=== PATIENT | male | born 1945 | race Caucasian/White ===

== ENCOUNTER → 2020-03-02 12:57 | Outpatient (REF) | payer MEDICARE, SELFPAY ==
--- NOTE | 2020-03-02 | US_ITS ---
EXAMINATION: US EXTRACRANIAL CAROTID DUPLEX, BILATERAL CLINICAL INFORMATION: History of TIA. COMPARISON: CT of the head without contrast on February 06, 2020 TECHNIQUE: Real-time ultrasound and Doppler techniques (integrating B-mode 2-D vascular images, Doppler spectral analysis and color-flow Doppler imaging) were utilized to interrogate the extracranial carotid arteries, the vertebral arteries and proximal subclavian arteries bilaterally. The degree of stenosis is determined by criteria similar to NASCET. FINDINGS: Right Side: 1. There is mild atherosclerotic plaque seen in the bifurcation/proximal ICA region. 2. The common carotid artery PSV proximally is 98.2 cm/s and distally 68.0 cm/s. 3. The proximal internal carotid artery velocities are 77.7 cm/s systolic and 19.3 cm/s diastolic. 4. The proximal external carotid artery PSV is 98.8 cm/s. 5. The vertebral artery shows antegrade flow. 6. The subclavian artery waveforms are normal. Left Side: 1. There is mild atherosclerotic plaque seen in the bifurcation/proximal ICA region. 2. The common carotid artery PSV proximally is 109 cm/s and distally 78.8 cm/s. 3. The proximal internal carotid artery velocities are 88 cm/s systolic and 27.5 cm/s diastolic. 4. The proximal external carotid artery PSV is 51.5 cm/s. 5. The vertebral artery shows antegrade flow. 6. The subclavian artery waveforms are normal. IMPRESSION: 1. RIGHT: Minimal, non-hemodynamically significant stenosis of the proximal right internal carotid artery corresponding to a 0-49% stenosis by velocity criteria. 2. LEFT: Minimal, non-hemodynamically significant stenosis of the proximal left internal carotid artery corresponding to a 0-49% stenosis by velocity criteria.
--- NOTE | 2020-03-02 13:05 | CA_ITS ---
Transthoracic Echocardiogram Patient (Last, First, Middle): Clifford Ashby A Gender: Male Date of : 1945 Age: 74 Procedure Date: 03/02/2020 Procedure Type: Transthoracic Echocardiogram Location: OP Height: 175.26 cm Weight: 78.47 kg BSA: 1.94 m2 Heart Rate: bpm BP: 122 / 68 mmHg Kitchen Designer: JORGE Referring MD: Thais Greenberg NP Symptoms: G45.9 TIA Study Quality: Fair ECG Rhythm: Undetermined Conclusions: - The left ventricular systolic function is normal. The visually estimated ejection fraction is between 55-60%. - No obvious valvular pathology seen on this study. - Cardiac rhythm during the study is not clear. P waves are intermittently seen. Consider holter for further evaluation. Findings Left Ventricle Normal left ventricular cavity size. There is normal left ventricular wall thickness. The left ventricular systolic function is normal. The visually estimated ejection fraction is between 55-60%. There is no evidence of regional wall motion abnormalities. Diastolic function is normal for age. Right Ventricle Normal right ventricular cavity size and systolic function. Atria Both atria are normal in size. Aortic Valve There is a normal trileaflet aortic valve. There is mild calcification of the aortic valve. There is no aortic valve stenosis. There is no aortic valve regurgitation. Mitral Valve The mitral valve appears normal. There is trace mitral valve regurgitation. There is no mitral valve stenosis. Pulmonic Valve The pulmonic valve was not well visualized. Tricuspid Valve Normal tricuspid valve structure. There is trace tricuspid valve regurgitation. The pulmonary artery systolic pressure is normal. Great Vessels The aortic annulus, sinuses of valsalva, and asc aorta are normal in size. Venous The inferior vena cava is normal in size and collapses greater than 50% with inspiration. Pericardium/Pleural There is no evidence of pericardial effusion. Prior Study Comparison No prior study available for comparison. Recommendations, Care & Conclusions No obvious valvular pathology seen on this study. Measurements 2D Linear Measurements IVSd: 1.13 0.6-0.9/0.6-1.0 cm LVIDd: 4.30 3.9-5.3/4.2-5.9 cm LVIDd Index: 2.22 2.4-3.2/2.2-3.1 cm/m2 LVIDs: 2.89 2.0-3.6 cm LVPWd: 1.02 0.7-1.1 cm Ao Root: 3.30 2.1-3.5 cm LA Diam: 4.40 2.7-3.8/3.0-4.0 cm LAIDs Index: 2.27 1.5-2.3 cm/m2 LV Mass: 196.38 67-162/88-224 g LV Mass Index: 101.23 43-95/49-115 g/m2 LVOT Diam: 2.10 3.0+(-)1.3 cm 2D Systolic Function EF 4C: 61.00 >55% EF 2C: 59.70 >55% EF BiP: 60.00 >55% Mitral Valve MV Pk E: 1.02 MV Decel Time: 216.00 E'Lateral: 22.30 E'Medial: 13.80 E/E' Med: 7.40 E/E' Lat: 4.60 PHT: 63.00 MVA PHT: 3.49 Decel [place]: 4.71 Aortic Valve AoV Pk Nixon: 1.33 AoV Mn Nixon: 0.93 AoV VTI: 0.30 AoV Pk Grad: 7.00 Aov Mn Grad: 4.00 FE Cont.VTI: 1.72 LVOT LVOT Pk Nixon: 0.70 LVOT Mn Nixon: 0.48 LVOT VTI: 0.15 LVOT Pk Grad: 2.00 LVOT Mn Grad: 1.00 LVOT Diam: 2.10 LVOT Area: 3.46 Diastolic Function MV Pk E: 1.02 E'Medial: 13.80 E/E' Med: 7.40 E' Laterial: 22.30 E/E' Lat: 4.60 Tricuspid Valve TR Pk Nixon: 2.50 TR Pk Grad: 25.00 Great Vessels Aorta Ao Root-2D: 3.30 2.0-3.7 cm Pulmonary Valve PV Pk Nixon: 0.91 Peak PV Grad: 3.00 Updated in Other Vendor System with Status of Final Nnamdi Damon MD electronically signed on 03/05/2020 9:30:19 AM with status of Final
== END ==
LOC: HO.CARD 12:57
PROVIDERS: Visit Provider Nurse Practitioner
DX: G45.9 Transient cerebral ischemic attack, unspecified (principal)
CPT/HCPCS: 93306; 93880

== ENCOUNTER 2020-03-14 09:28 | Outpatient (REF) | payer MEDICARE, OTHER, SELFPAY ==
[2020-03-14 15:20] LABS: SARS COV2 PCR INHOUSE NEGATIVE (Negative)
== END 2020-03-14 09:29 | disposition home or self-care (01) ==
LOC: HO.HSH3W 09:28
PROVIDERS: Visit Provider Internal Medicine Critical Care Medicine
DX: Z20.828 Contact with and (suspected) exposure to other viral communicable diseases (principal)
CPT/HCPCS: 87635

== ENCOUNTER 2020-03-15 06:19 | Outpatient (REF) | payer MEDICARE, OTHER, SELFPAY ==
[2020-03-15 09:34] LABS: MANUAL DIFF FLAG NO
[2020-03-15 09:44] LABS: Basophils Percent Auto 0.6 % (0-2); Eosinophils Absolute Auto 0.1 X10*3/uL (0.0-0.4); Eosinophils Percent Auto 2.3 % (0-4); Hematocrit 36.4 % (42-52); Hemoglobin 12.1 g/dl (14.0-18.0); Imm Gran Abs Auto 0.02 X10*3/uL (0.00-0.03); Imm Gran Pct Auto 0.4 % (0.0-0.4); Lymphocytes Absolute Auto 1.4 X10*3/uL (1.2-4.9); Lymphocytes Percent Auto 27.1 % (20-40); Mean Corpuscular HGB Conc 33.2 g/dl (31.0-36.0); Mean Corpuscular Hemoglobin 28.9 pg (27.0-33.0); Mean Corpuscular Volume 87.1 fL (80-98); Mean Platelet Volume 10.3 fL (9.4-12.4); Monocytes Absolute Auto 0.6 X10*3/uL (0.1-1.2); Monocytes Percent Auto 10.9 % (2-11); Neutrophils Absolute Auto 3.1 X10*3/uL (2.0-8.3); Neutrophils Percent Auto 58.7 % (45-73); Platelet Count 147 X10*3/uL (160-400); Red Blood Count 4.18 X10*6/uL (4.60-5.80); Red Cell Distribution Width 13.1 % (11.0-16.0); White Blood Count 5.2 X10*3/uL (4.8-10.8)
[2020-03-15 10:10] LABS: Alanine Aminotransferase 11 U/L (0-40); Albumin Level 3.8 g/dL (3.5-5.0); Alkaline Phosphatase 92 U/L (39-117); Anion Gap 12 (12-20); Aspartate Amino Transferase 14 U/L (5-37); Bilirubin Total 0.5 mg/dL (0.0-1.0); Blood Urea Nitrogen 21 mg/dL (9-16); Calcium 8.3 mg/dL (8.4-10.2); Carbon Dioxide 25 mmol/L (22-29); Chloride 108 mmol/L (96-108); Cholesterol 154 mg/dL; Estimated Glomerular Filt Rate 30; Glucose Fasting 84 mg/dL (60-99); HDL Cholesterol 28 mg/dL; LDL Cholesterol Calculated 108 mg/dl; Potassium 4.5 mmol/l (3.3-5.1); Sodium 140 mmol/L (135-145); Total Protein 6.3 g/dL (6.5-8.0); Triglycerides 90 mg/dL
[2020-03-15 10:25] LABS: Vitamin D 25-OH Total 6.2 ng/mL (>30)
== END 2020-03-15 06:20 | disposition home or self-care (01) ==
LOC: HO.HSH3W 06:19
PROVIDERS: Visit Provider Nurse Practitioner
DX: F03.90 Unspecified dementia, unspecified severity, without behavioral disturbance, psychotic disturbance, mood disturbance, and anxiety (principal); I10 Essential (primary) hypertension
CPT/HCPCS: 36415; 80053; 80061; 82306; 85025

== ENCOUNTER 2020-03-16 17:15 | Outpatient (REF) | payer MEDICARE, OTHER, SELFPAY ==
[2020-03-16 17:56] LABS: Glucose Urine UA NEG (NEG); Leukocyte Esterase Urine NEG (NEG); Nitrite Urine NEG (NEG); Specific Gravity - Urine 1.025 (1.005-1.025); Urine Blood TRACE (NEG); Urine Ketones NEG (NEG); Urine Protein NEG (NEG-TRACE)
[2020-03-16 17:57] LABS: Appearance Urine CLEAR; Color Urine YELLOW
[2020-03-16 18:05] LABS: RBC Urine 0-2 /HPF (0); Squamous Epithelial Cell Urine TRACE /LPF; WBC Urine 0 /HPF (0-4)
== END 2020-03-16 17:16 | disposition home or self-care (01) ==
LOC: HO.HSH3W 17:15
PROVIDERS: Visit Provider Nurse Practitioner
DX: R32 Unspecified urinary incontinence (principal)
CPT/HCPCS: 81001

== ENCOUNTER 2020-06-15 08:03 | Outpatient (REF) | payer MEDICARE, OTHER, SELFPAY ==
[2020-06-15 10:23] LABS: Anion Gap 13 (12-20); Blood Urea Nitrogen 17 mg/dL (9-16); Calcium 8.8 mg/dL (8.4-10.2); Carbon Dioxide 24 mmol/L (22-29); Chloride 107 mmol/L (96-108); Estimated Glomerular Filt Rate 31; Glucose Random 91 mg/dL (60-115); Potassium 4.8 mmol/l (3.3-5.1); Sodium 139 mmol/L (135-145)
[2020-06-15 10:45] LABS: Vitamin D 25-OH Total 27.6 ng/mL (>30)
== END 2020-06-15 08:04 | disposition home or self-care (01) ==
LOC: HO.HSH3W 08:03
PROVIDERS: Visit Provider Nurse Practitioner
DX: N18.9 Chronic kidney disease, unspecified (principal); E55.9 Vitamin D deficiency, unspecified
CPT/HCPCS: 36415; 80048; 82306

== ENCOUNTER 2020-08-09 10:28 | Outpatient (REF) | payer MEDICARE, OTHER, SELFPAY ==
[2020-08-09 10:57] LABS: MANUAL DIFF FLAG NO
[2020-08-09 10:59] LABS: Basophils Percent Auto 0.4 % (0-2); Eosinophils Absolute Auto 0.1 X10*3/uL (0.0-0.4); Eosinophils Percent Auto 1.3 % (0-4); Hematocrit 40.2 % (42-52); Hemoglobin 13.5 g/dl (14.0-18.0); Imm Gran Abs Auto 0.03 X10*3/uL (0.00-0.03); Imm Gran Pct Auto 0.4 % (0.0-0.4); Lymphocytes Absolute Auto 1.2 X10*3/uL (1.2-4.9); Lymphocytes Percent Auto 16.3 % (20-40); Mean Corpuscular HGB Conc 33.6 g/dl (31.0-36.0); Mean Corpuscular Hemoglobin 28.9 pg (27.0-33.0); Mean Corpuscular Volume 86.1 fL (80-98); Mean Platelet Volume 9.8 fL (9.4-12.4); Monocytes Absolute Auto 0.6 X10*3/uL (0.1-1.2); Monocytes Percent Auto 8.6 % (2-11); Neutrophils Absolute Auto 5.4 X10*3/uL (2.0-8.3); Platelet Count 150 X10*3/uL (160-400); Red Blood Count 4.67 X10*6/uL (4.60-5.80); Red Cell Distribution Width 13.2 % (11.0-16.0); White Blood Count 7.4 X10*3/uL (4.8-10.8)
[2020-08-09 11:30] LABS: Alanine Aminotransferase 7 U/L (0-40); Alkaline Phosphatase 73 U/L (39-117); Amylase 46 U/L (28-100); Anion Gap 16 (12-20); Aspartate Amino Transferase 14 U/L (5-37); Bilirubin Total 0.8 mg/dL (0.0-1.0); Blood Urea Nitrogen 20 mg/dL (9-16); C Reactive Protein 2.06 mg/dL (< or = 0.50); Calcium 8.4 mg/dL (8.4-10.2); Carbon Dioxide 21 mmol/L (22-29); Chloride 106 mmol/L (96-108); Estimated Glomerular Filt Rate 26; Glucose Random 104 mg/dL (60-115); Lipase 19 U/L (8-78); Potassium 4.5 mmol/L (3.3-5.1); Sodium 138 mmol/L (135-145); Total Protein 6.6 g/dL (6.5-8.0)
== END 2020-08-09 10:29 | disposition home or self-care (01) ==
LOC: HO.HSH3W 10:28
PROVIDERS: Visit Provider Nurse Practitioner
DX: R10.9 Unspecified abdominal pain (principal); K74.60 Unspecified cirrhosis of liver
CPT/HCPCS: 36415; 80053; 82150; 83690; 85025; 86140

== ENCOUNTER 2020-08-09 12:19 | Emergency (ER) | payer OTHER, MEDICARE, SELFPAY ==
--- NOTE | ~2020-08-09 | CT_ITS ---
EXAMINATION: CT ABDOMEN AND PELVIS WITHOUT CONTRAST CLINICAL INFORMATION: Right-sided abdominal pain COMPARISON: None TECHNIQUE: Multidetector volumetric imaging was performed from the superior aspect of the liver through the pubic symphysis. Sagittal and coronal reformatted images were obtained on the technologist's workstation. This CT examination was performed using dose optimization techniques as appropriate, variously including the following: *Automated exposure control *Adjustment of mA and/or kV according to patient size (this includes techniques or standardized protocols for targeted exams where dose is matched to indication/reason for exam; i.e. extremities or head) *Use of iterative reconstruction technique DLP: 551 mGy-cm FINDINGS: LUNG BASES: The visualized lung bases are unremarkable. LIVER, GALLBLADDER, AND BILIARY TREE: The liver is normal in size, shape, and attenuation. No focal hepatic lesion or biliary ductal dilatation is present. The gallbladder is contracted. There are gallstones in the gallbladder. PANCREAS: Unremarkable. SPLEEN: The spleen is slightly enlarged measuring 14 cm in length. ADRENAL GLANDS: Unremarkable. KIDNEYS AND URETERS: Both kidneys are small measuring 8 and 8.5 cm in length.. No hydronephrosis, hydroureter, or calculi seen. No perinephric stranding. BLADDER: Not optimally distended but appears unremarkable. GASTROINTESTINAL TRACT: There are fluid-filled distended loops of small bowel. No transition zone is seen favoring ileus over partial small bowel obstruction. There is diverticulosis of the colon. There is no evidence of diverticulitis. The appendix is unremarkable. There is an esophageal hernia. ABDOMINAL WALL: No significant hernia is appreciated. LYMPH NODES: Normal. VASCULAR: Atherosclerotic disease. No aneurysm. PELVIC VISCERA: The prostate gland has been removed. OSSEOUS STRUCTURES: There are degenerative changes of the spine. There is spondylolysis spondylolisthesis and degenerative disc disease at L5-S1. No focal bone lesion is seen. CT/CT abdomen pelvis wo con IMPRESSION: Distended fluid-filled loops of small bowel. No transition zone is seen and small bowel ileus is favored over partial small bowel obstruction. Diverticulosis of the colon. No evidence of diverticulitis. Normal-appearing appendix. Contracted gallbladder with gallstones. No CT evidence of cholecystitis. Mild splenomegaly. Small kidneys. Postoperative changes from prostatectomy. Esophageal hernia.
[2020-08-09 12:25] VITALS: BP 148/78; PULSE 95; RESP 18; TEMP 36.6; O2SAT 95; BMI 25.9
--- NOTE | 2020-08-09 12:52 | ED.ABDPAIN ---
HPI - Abdominal Pain General Chief Complaint: Abdominal Pain Stated Complaint: ABD PAIN FROM SNF Time Seen by Provider: 08/09/20 12:22 Source: patient Mode of arrival: ambulatory Limitations: no limitations History of Present Illness HPI narrative: Patient presents to ED for right-sided abdominal pain for the past 2 days with some episodes of emesis. Patient denies vomiting blood, fever, chills, rectal bleeding, chest pain, shortness of breath, epigastric pain, or any left-sided abdominal pain. Patient states no dysuria or hematuria. Patient had another right-sided abdominal-patient this morning with emesis. Mother time patient came to the ED abdominal pain resolved. Patient himself states normal bowel movements and denies constipation. MD elicited complaint: abdominal pain (right side) Related Data Previous Rx's Medication Instructions Recorded ondansetron HCl [Zofran] 4 mg PO Q6H PRN 4 Days #16 tab 08/09/20 tramadol 50 mg PO Q8H PRN #9 tab 08/09/20 Allergies Allergy/AdvReac Type Severity Reaction Status Date / Time lisinopril [LISINOPRIL] Allergy Mild UNKNOWN Unverified 02/11/20 19:45 baclofen [BACLOFEN] Allergy Unknown UNKNOWN Unverified 02/11/20 19:45 shellfish derived Allergy Unknown UNKNOWN Unverified 02/11/20 19:45 [SHELLFISH DERIVED] Review of Systems Review of Systems Yes all other systems are reviewed and are negative Constitutional: Reports as per HPI and Reports no additional constitutional complaints Eyes: Reports as per HPI and Reports no additional eye complaints Reports system reviewed and no additional complaints, except as documented and Reports as per HPI Cardiovascular: Reports as per HPI and Reports no additional cardiovascular complaints Respiratory: Reports as per HPI and Reports no additional respiratory complaints Gastrointestinal: Reports as per HPI, Reports no additional gastrointestinal complaints, Reports abdominal pain (right side) and Reports vomiting Genitourinary: Reports no additional male genitourinary complaints and Reports as per HPI Musculoskeletal: Reports no additional musculoskeletal complaints and Reports as per HPI Reports system reviewed and no additional complaints, except as documented and Reports as per HPI Psychiatric: Reports no additional psychiatric complaints and Reports as per HPI Physical Exam Vital Signs: Vital Signs: Last Vital Signs Temp 97.9 F 08/09/20 15:22 Pulse 73 08/09/20 15:22 Resp 16 08/09/20 15:22 BP 121/82 08/09/20 15:22 Pulse Ox 95 08/09/20 15:22 Body Mass Index 25.9 Const: General: cooperative, healthy appearing, comfortable, no acute distress, well developed, alert and awake Orientation/consciousness: patient oriented x3 HENMT: Head: Yes normal to inspection, Yes No palpable skull fracture present, Yes normocephalic, Yes atraumatic and No abrasion Eyes: General: appearance normal, both eyes and all related structures Neck: Neck: Yes normal visual inspection, Yes full ROM, Yes no lymphadenopathy, Yes no meningeal signs, Yes trachea midline, Yes supple and No tender Chest: Chest palpation & inspection: normal inspection of the chest and normal palpation of entire chest wall Resp: Effort & Inspection: normal respiratory effort and able to speak in complete sentences Auscultation: clear to auscultation bilaterally Cardio: Jugular venous distension: no JVD Heart sounds: S1 normal heart sound present and S2 normal heart sound present GI: Inspection: Yes normal to inspection, No abdominal wall ecchymosis, No Abdominal wall edema and No distended Palpation (GI): Soft to palpation, not firm, Tenderness to palpation present (GI) (mild right mid abdomen), no guarding and not rigid : General: No CVA tenderness and Yes no CVA tenderness Back/Spine/Pelvis: Back: no CVA tenderness, No CVA tenderness and No back tenderness Skin: General skin exam: no rashes or lesions noted and elasticity normal Neuro: General: patient oriented x3, no meningeal signs and CN's II-XI intact bilaterally Cranial nerves: Yes CN's II-XII intact bilaterally Extrem: General: Yes normal to inspection and Yes full ROM Psych: Appearance: grossly normal and well ket Course Course Course Narrative: Patient labs were drawn this morning at [facility] and updated to all system. Patient does not have any elevated white blood cell count or abnormal LFTs. No UA was sent. Patient will have UA and sent for abdominal CT scan to rule out any obstruction, cholecystitis, appendicitis. Right-sided pain is in the mid abdomen. Patient does not have any epigastric or left-sided abdominal pain on palpation. Reevaluation(s) Reevaluation #1: Patient not any distress. Patient denies have any abdominal pain. Patient did not have any active vomiting to ED visit. Patient sent for CT scan to rule out any appendicitis, cholecystitis, or small bowel obstruction other brown likely. Patient states he has had normal bowel movements every day. Patient presently asymptomatic. Labs from [facility] did not show any elevated white blood cell count or elevated LFTs. Urine came back normal. Time: 15:22 Reevaluation #2: CT scan shows gallstones with no cholecystitis. Patient presently asymptomatic. Patient's abdomen was re-evaluated and was nontender and benign on palpation. Patient was sleeping comfortably in bed. CT scan also shows small ileus but negative for small bowel obstruction. Patient presently states he has not any pain. Due to CT scan reading of ileus Dr. kathy murguia of surgery was consulted. He was informed of patient's history, physical exam, and diagnostics. He was sent reading of patient's liver enzyme, white blood cell count, anf abdominal CT scan reports. He states this patient passed p.o. challenge and patient could be discharged home. Patient was given some crackers and had mild emesis/more retching. Spoke with Dr. Moreira of surgery to see if patient should be admitted to service, he said patient could be placed his medicine in necessary due to patient being DNI, DNR, do not ventilate and do not transfer ( comfort measures only). i was made aware of patient's DNI, DNR, and Do not transfer to hospital status after workup was done. Dr. Moreira also agrees presently there is no surgical indication to address patient's gallstone. Patient does not have cholecystitis and normal LFTs and negative for white blood cell count elevation. Dr. Moreira did not recommend NG tube. Spoke with hospitalist Dr. Hernandez who states patient's family should be contacted for permission to see if they prefer patient to be kept in the hospital for comfort measures such as nausea medication which could be given at [facility] facility. Spoke with patient's healthcare proxy, Anastasia Akers, his daughter and she was informed of patient's history, physical exam, diagnostic tests, and consultation advice from the surgeon and hospitalist. She states she preferred patient be discharged back to the [facility] with anti nausea and pain medication. Patient presently is walking around in his room alert oriented x3 and not in any distress. Patient states he feels better. Patient states he had a bowel movement this morning. Denies constipation. Time: 17:46 Reevaluation #3: Patient to be discharged with Zofran and tramadol ( due to gallstones) although he has no pain Time: 17:50 MDM - Abdominal Pain MDM Narrative Medical decision making narrative: Gallstones, Iileus Lab Data Labs: Lab Results 08/09/20 Range/Units 15:22 Urine Color YELLOW Urine Appearance CLEAR Urine pH 5.5 (5.0-8.0) Ur Specific [place] >= 1.030 H (1.005-1.025) Urine Protein NEG (NEG-TRACE) MG/DL Urine Glucose (UA) NEG (NEG) MG/DL Urine Ketones NEG (NEG) MG/DL Urine Blood TRACE (NEG) Urine Nitrite NEG (NEG) Ur Leukocyte Esterase NEG (NEG) Urine RBC 0-2 (0) /HPF Urine WBC 0-2 (0-4) /HPF Ur Squamous Epith Cells TRACE /LPF Urine Bacteria TRACE /LPF Discharge Plan Discharge Clinical Impression: Gallstones, Ileus Patient Disposition: Home, Self-Care Instructions: Gallstones (ED), Ileus (ED) Additional Instructions: Return to the ED immediately if patient unable to tolerate p.o./liquid, severe abdominal pain, fever, chills, intractable vomiting or any other concerning symptoms. Prescriptions: New ondansetron HCl [Zofran] 4 mg tablet 4 mg PO Q6H PRN (Reason: nausea and vomiting) 4 Days Qty: 16 RF: 0 tramadol 50 mg tablet 50 mg PO Q8H PRN (Reason: pain) Qty: 9 RF: 0 Referrals: Tien Moreira MD [Physician] - 2 days (Gallstones. Ileus) Interventions: ED Discharge Assessment Last Done: 08/09/20 19:42 Discharge Date/Time: 08/09/20 19:48 Print Language: [place] [facility] Past Medical History Medical History Hoffman esophagus Cirrhosis of liver Dementia Diverticulitis Malignant neoplasm of prostate Surgical History (Updated 08/09/20 @ 12:30 by Manuel Pino) H/O radical prostatectomy Social History Social History Alcohol intake: former Smoking Status: Former smoker Smoked in Last 30 Days: No Use of substances other than those prescribed or required for medical reasons: No Advance Directives: Yes Advance Directives on File: Yes Advance Directives Date on File: 08/09/20
[2020-08-09] MEDS: 0.9 % Sodium Chloride 1,000 ML 999 ML IV (13:16)
[2020-08-09] MEDS: ondansetron HCL 4 MG/2 ML VIAL IVPUSH ×2 (13:17→18:19)
[2020-08-09] MEDS: Famotidine/PF 20 MG/2 ML VIAL IVPUSH (13:18)
[2020-08-09 13:23] VITALS: BP 123/77; PULSE 85; RESP 16; O2SAT 94
[2020-08-09 15:22] VITALS: BP 121/82; PULSE 73; RESP 16; TEMP 36.6; O2SAT 95
[2020-08-09 15:37] LABS: Glucose Urine UA NEG (NEG); Leukocyte Esterase Urine NEG (NEG); Nitrite Urine NEG (NEG); PH 5.5 (5.0-8.0); Specific Gravity - Urine >= 1.030 (1.005-1.025); Urine Blood TRACE (NEG); Urine Ketones NEG (NEG); Urine Protein NEG (NEG-TRACE)
[2020-08-09 16:00] LABS: Appearance Urine CLEAR; Color Urine YELLOW
[2020-08-09 16:09] LABS: Bacteria Urine TRACE /LPF; RBC Urine 0-2 /HPF (0); Squamous Epithelial Cell Urine TRACE /LPF; WBC Urine 0-2 /HPF (0-4)
--- NOTE | 2020-08-09 16:20 | PC.NURSE ---
PT REPORTS FEELING MARKED IMPROVED, PT SAT UPRIGHT IN BED, PROVIDED CRACKERS AND WATER FOR PO CHALLENGE, PT IMMEDIATELY VOMITED AFTER EATING 1 CRACKER, PROVIDER NOTIFIED.
== END 2020-08-09 19:48 | disposition home or self-care (01) ==
PROVIDERS: Physician Assistant; Emergency Provider Emergency Medicine; PCP Nurse Practitioner
DX: K56.3 Gallstone ileus (principal); R10.9 Unspecified abdominal pain; Z87.891 Personal history of nicotine dependence; Z79.899 Other long term (current) drug therapy
CPT/HCPCS: 74176; 81001; 96365; 96375; 96376; 99285; J2405

== ENCOUNTER 2020-08-15 06:01 | Outpatient (REF) | payer MEDICARE, SELFPAY ==
[2020-08-15 06:55] LABS: Anion Gap 17 (12-20); Blood Urea Nitrogen 26 mg/dL (9-16); Calcium 8.3 mg/dL (8.4-10.2); Carbon Dioxide 20 mmol/L (22-29); Chloride 105 mmol/L (96-108); Estimated Glomerular Filt Rate 27; Glucose Random 114 mg/dL (60-115); Potassium 3.7 mmol/L (3.3-5.1); Rheumatoid Factor < 15.0 IU/mL (<15.0); Sodium 138 mmol/L (135-145); Uric Acid 11.6 mg/dL (3.4-7.0)
[2020-08-15 07:39] LABS: Erythrocyte Sedimentation Rate 51 MM/HR (0-15)
== END 2020-08-15 06:02 | disposition home or self-care (01) ==
LOC: HO.HSH3W 06:01
PROVIDERS: Visit Provider Nurse Practitioner
DX: M25.50 Pain in unspecified joint (principal)
CPT/HCPCS: 36415; 80048; 84550; 85652; 86140; 86431

== ENCOUNTER 2020-11-22 06:41 | Outpatient (REF) | payer MEDICARE, SELFPAY ==
[2020-11-22 07:59] LABS: Basophils Percent Auto 0.6 % (0-2); Hematocrit 36.7 % (42-52); Hemoglobin 12.1 g/dl (14.0-18.0); MANUAL DIFF FLAG SCAN; PLT CLUMP 1; SCAN SMEAR FLAG 1
[2020-11-22 08:01] LABS: Eosinophils Absolute Auto 0.2 X10*3/uL (0.0-0.4); Eosinophils Percent Auto 3.3 % (0-4); Imm Gran Abs Auto 0.02 X10*3/uL (0.00-0.03); Imm Gran Pct Auto 0.4 % (0.0-0.4); Lymphocytes Absolute Auto 1.7 X10*3/uL (1.2-4.9); Lymphocytes Percent Auto 33.7 % (20-40); Mean Platelet Volume 10.5 fL (9.4-12.4); Monocytes Absolute Auto 0.5 X10*3/uL (0.1-1.2); Monocytes Percent Auto 10.1 % (2-11); Neutrophils Absolute Auto 2.7 X10*3/uL (2.0-8.3); Neutrophils Percent Auto 51.9 % (45-73); Platelet Count 131 X10*3/uL (160-400); Red Blood Count 4.17 X10*6/uL (4.60-5.80)
[2020-11-22 08:11] LABS: White Blood Count 5.2 X10*3/uL (4.8-10.8)
[2020-11-22 09:11] LABS: Alanine Aminotransferase < 6 U/L (0-40); Albumin Level 3.8 g/dL (3.5-5.0); Alkaline Phosphatase 102 U/L (39-117); Anion Gap 12 (12-20); Aspartate Amino Transferase 12 U/L (5-37); Bilirubin Total 0.3 mg/dL (0.0-1.0); Blood Urea Nitrogen 12 mg/dL (9-16); Carbon Dioxide 26 mmol/L (22-29); Chloride 107 mmol/L (96-108); Estimated Glomerular Filt Rate 32; Glucose Random 89 mg/dL (60-115); Potassium 4.9 mmol/L (3.3-5.1); Sodium 140 mmol/L (135-145); Total Protein 6.2 g/dL (6.5-8.0)
== END 2020-11-22 06:42 | disposition home or self-care (01) ==
LOC: HO.HSH3W 06:41
PROVIDERS: Visit Provider Nurse Practitioner
DX: M10.9 Gout, unspecified (principal); N18.9 Chronic kidney disease, unspecified
CPT/HCPCS: 36415; 80053; 85025

== ENCOUNTER 2020-11-28 14:28 | Outpatient (REF) | payer MEDICARE, SELFPAY ==
[2020-11-28 14:34] LABS: OBS Int Ctl Valid YES; OBS1 NEGATIVE (NEGATIVE)
== END 2020-11-28 14:29 | disposition home or self-care (01) ==
LOC: HO.HSH3W 14:28
PROVIDERS: Visit Provider Nurse Practitioner
DX: D64.9 Anemia, unspecified (principal)
CPT/HCPCS: 82272

== ENCOUNTER 2020-11-29 10:48 | Outpatient (REF) | payer MEDICARE, SELFPAY ==
[2020-11-29 12:26] LABS: OBS1 NEGATIVE (NEGATIVE)
[2020-11-29 12:27] LABS: OBS Int Ctl Valid YES
== END 2020-11-29 10:49 | disposition home or self-care (01) ==
LOC: HO.HSH3W 10:48
PROVIDERS: Visit Provider Nurse Practitioner
DX: D64.9 Anemia, unspecified (principal)
CPT/HCPCS: 82272

== ENCOUNTER 2020-11-30 07:22 | Outpatient (REF) | payer MEDICARE, SELFPAY ==
[2020-11-30 08:26] LABS: OBS Int Ctl Valid YES; OBS1 NEGATIVE (NEGATIVE)
== END 2020-11-30 07:23 | disposition home or self-care (01) ==
LOC: HO.HSH3W 07:22
PROVIDERS: Visit Provider Nurse Practitioner
DX: D64.9 Anemia, unspecified (principal)
CPT/HCPCS: 82272

== ENCOUNTER 2020-12-01 | Outpatient (REF) | payer MEDICARE, SELFPAY ==
[2020-12-01 07:55] LABS: MANUAL DIFF FLAG NO
[2020-12-01 08:03] LABS: Basophils Percent Auto 0.7 % (0-2); Eosinophils Absolute Auto 0.2 X10*3/uL (0.0-0.4); Eosinophils Percent Auto 2.8 % (0-4); Hematocrit 35.4 % (42-52); Hemoglobin 11.7 g/dl (14.0-18.0); Imm Gran Abs Auto 0.03 X10*3/uL (0.00-0.03); Imm Gran Pct Auto 0.6 % (0.0-0.4); Lymphocytes Absolute Auto 1.8 X10*3/uL (1.2-4.9); Lymphocytes Percent Auto 32.5 % (20-40); Mean Corpuscular HGB Conc 33.1 g/dl (31.0-36.0); Mean Corpuscular Volume 87.8 fL (80-98); Mean Platelet Volume 10.7 fL (9.4-12.4); Monocytes Absolute Auto 0.6 X10*3/uL (0.1-1.2); Monocytes Percent Auto 10.1 % (2-11); Neutrophils Absolute Auto 2.9 X10*3/uL (2.0-8.3); Neutrophils Percent Auto 53.3 % (45-73); Platelet Count 126 X10*3/uL (160-400); Red Blood Count 4.03 X10*6/uL (4.60-5.80); Red Cell Distribution Width 13.9 % (11.0-16.0); White Blood Count 5.4 X10*3/uL (4.8-10.8)
== END 2020-12-01 00:01 | disposition home or self-care (01) ==
LOC: HO.HSH3W
PROVIDERS: Visit Provider Nurse Practitioner Acute Care
DX: Z13.89 Encounter for screening for other disorder (principal)
CPT/HCPCS: 36415; 85025

== ENCOUNTER 2021-02-08 11:29 | Outpatient (REF) | payer MEDICARE, SELFPAY ==
[2021-02-08 12:18] LABS: MANUAL DIFF FLAG NO
[2021-02-08 12:20] LABS: Basophils Percent Auto 0.3 % (0-2); Eosinophils Absolute Auto 0.1 X10*3/uL (0.0-0.4); Eosinophils Percent Auto 0.7 % (0-4); Hematocrit 41.7 % (42-52); Imm Gran Abs Auto 0.04 X10*3/uL (0.00-0.03); Imm Gran Pct Auto 0.4 % (0.0-0.4); Lymphocytes Absolute Auto 1.4 X10*3/uL (1.2-4.9); Lymphocytes Percent Auto 12.8 % (20-40); Mean Corpuscular HGB Conc 33.6 g/dl (31.0-36.0); Mean Corpuscular Hemoglobin 29.6 pg (27.0-33.0); Mean Corpuscular Volume 88.2 fL (80-98); Mean Platelet Volume 10.9 fL (9.4-12.4); Monocytes Absolute Auto 0.8 X10*3/uL (0.1-1.2); Monocytes Percent Auto 7.6 % (2-11); Neutrophils Absolute Auto 8.6 X10*3/uL (2.0-8.3); Neutrophils Percent Auto 78.2 % (45-73); Platelet Count 165 X10*3/uL (160-400); Red Blood Count 4.73 X10*6/uL (4.60-5.80); Red Cell Distribution Width 13.9 % (11.0-16.0)
[2021-02-08 12:31] LABS: Alanine Aminotransferase 25 U/L (0-40); Albumin Level 4.3 g/dL (3.5-5.0); Alkaline Phosphatase 82 U/L (39-117); Anion Gap 13 (12-20); Aspartate Amino Transferase 31 U/L (5-37); Bilirubin Total 2.2 mg/dL (0.0-1.0); Blood Urea Nitrogen 19 mg/dL (9-16); Calcium 9.3 mg/dL (8.4-10.2); Carbon Dioxide 22 mmol/L (22-29); Chloride 108 mmol/L (96-108); Estimated Glomerular Filt Rate 30; Glucose Random 149 mg/dL (60-115); Lipase 13 U/L (8-78); Potassium 4.4 mmol/L (3.3-5.1); Sodium 139 mmol/L (135-145)
[2021-02-08 12:39] LABS: Amylase 29 U/L (28-100)
[2021-02-08 14:13] LABS: Erythrocyte Sedimentation Rate 29 MM/HR (0-15)
== END 2021-02-08 11:30 | disposition home or self-care (01) ==
LOC: HO.HSH3W 11:29
PROVIDERS: Visit Provider Nurse Practitioner
DX: R10.9 Unspecified abdominal pain (principal)
CPT/HCPCS: 36415; 80053; 82150; 83690; 85025; 85652

== ENCOUNTER 2021-02-13 | Outpatient (REF) | payer MEDICARE, SELFPAY ==
[2021-02-13 13:22] LABS: MANUAL DIFF FLAG NO
[2021-02-13 13:23] LABS: Basophils Percent Auto 0.4 % (0-2); Eosinophils Absolute Auto 0.1 X10*3/uL (0.0-0.4); Eosinophils Percent Auto 0.6 % (0-4); Hematocrit 41.7 % (42-52); Hemoglobin 13.8 g/dl (14.0-18.0); Imm Gran Abs Auto 0.05 X10*3/uL (0.00-0.03); Imm Gran Pct Auto 0.6 % (0.0-0.4); Lymphocytes Absolute Auto 1.3 X10*3/uL (1.2-4.9); Lymphocytes Percent Auto 16.7 % (20-40); Mean Corpuscular HGB Conc 33.1 g/dl (31.0-36.0); Mean Corpuscular Hemoglobin 29.2 pg (27.0-33.0); Mean Corpuscular Volume 88.3 fL (80-98); Mean Platelet Volume 10.2 fL (9.4-12.4); Monocytes Absolute Auto 0.7 X10*3/uL (0.1-1.2); Monocytes Percent Auto 8.9 % (2-11); Neutrophils Absolute Auto 5.7 X10*3/uL (2.0-8.3); Neutrophils Percent Auto 72.8 % (45-73); Platelet Count 191 X10*3/uL (160-400); Red Blood Count 4.72 X10*6/uL (4.60-5.80); Red Cell Distribution Width 13.2 % (11.0-16.0); White Blood Count 7.8 X10*3/uL (4.8-10.8)
[2021-02-13 14:28] LABS: Erythrocyte Sedimentation Rate 44 MM/HR (0-15)
== END 2021-02-13 00:01 | disposition home or self-care (01) ==
LOC: HO.HSH3W
PROVIDERS: Visit Provider Nurse Practitioner
DX: M25.529 Pain in unspecified elbow (principal)
CPT/HCPCS: 36415; 84550; 85025; 85652

== ENCOUNTER 2021-03-03 06:27 | Outpatient (REF) | payer MEDICARE, SELFPAY ==
[2021-03-03 08:30] LABS: Thyroid Stimulating Hormone 0.72 uIU/mL (0.32-4.0)
[2021-03-10 12:41] LABS: Vitamin B1 <6 nmol/L (8-30)
== END 2021-03-03 06:28 | disposition home or self-care (01) ==
LOC: HO.HSH3W 06:27
PROVIDERS: Visit Provider Nurse Practitioner
DX: F32.9 Major depressive disorder, single episode, unspecified (principal)
CPT/HCPCS: 36415; 84425; 84443

== ENCOUNTER 2021-08-18 07:00 | Outpatient (REF) | payer MEDICARE, SELFPAY ==
[2021-08-18 07:49] LABS: MANUAL DIFF FLAG NO
[2021-08-18 07:50] LABS: Basophils Percent Auto 0.4 % (0-2); Eosinophils Absolute Auto 0.3 X10*3/uL (0.0-0.4); Eosinophils Percent Auto 5.2 % (0-4); Hematocrit 39.7 % (42.0-52.0); Hemoglobin 12.8 g/dl (14.0-18.0); Imm Gran Abs Auto 0.04 X10*3/uL (0.00-0.03); Imm Gran Pct Auto 0.8 % (0.0-0.4); Lymphocytes Absolute Auto 1.8 X10*3/uL (1.2-4.9); Lymphocytes Percent Auto 34.1 % (20-40); Mean Corpuscular HGB Conc 32.2 g/dl (31.0-36.0); Mean Corpuscular Hemoglobin 28.1 pg (27.0-33.0); Mean Corpuscular Volume 87.3 fL (80.0-98.0); Mean Platelet Volume 10.7 fL (9.4-12.4); Monocytes Absolute Auto 0.5 X10*3/uL (0.1-1.2); Monocytes Percent Auto 9.4 % (2-11); Neutrophils Absolute Auto 2.6 x10*3/uL (2.0-8.3); Neutrophils Percent Auto 50.1 % (45-73); Platelet Count 179 X10*3/uL (160-400); Red Blood Count 4.55 X10*6/uL (4.60-5.80); Red Cell Distribution Width 14.1 % (11.0-16.0); White Blood Count 5.2 X10*3/uL (4.8-10.8)
[2021-08-18 08:01] LABS: Alanine Aminotransferase 25 U/L (0-40); Albumin Level 3.6 g/dL (3.5-5.0); Alkaline Phosphatase 231 U/L (39-117); Anion Gap 11 (12-20); Aspartate Amino Transferase 23 U/L (5-37); Blood Urea Nitrogen 19 mg/dL (9-16); Calcium 8.7 mg/dL (8.4-10.2); Carbon Dioxide 25 mmol/L (22-29); Chloride 108 mmol/L (96-108); Estimated Glomerular Filt Rate 30; Glucose Fasting 90 mg/dL (60-99); Sodium 140 mmol/L (135-145); Total Protein 6.1 g/dL (6.5-8.0)
[2021-08-18 08:33] LABS: Estimated Average Glucose 111 mg/dL; Hemoglobin A1c % 5.5 %
[2021-08-25 10:06] LABS: Vitamin B1 41 nmol/L (8-30)
== END 2021-08-18 07:01 | disposition home or self-care (01) ==
LOC: HO.HSH3W 07:00
PROVIDERS: Visit Provider Nurse Practitioner
DX: K22.70 Barrett's esophagus without dysplasia (principal); I10 Essential (primary) hypertension; E53.8 Deficiency of other specified B group vitamins
CPT/HCPCS: 36415; 80053; 83036; 84425; 85025

== ENCOUNTER 2021-08-28 17:15 | Outpatient (REF) | payer MEDICARE, SELFPAY ==
[2021-08-28 17:48] LABS: MANUAL DIFF FLAG NO
[2021-08-28 17:53] LABS: Basophils Percent Auto 0.4 % (0-2); Eosinophils Absolute Auto 0.1 X10*3/uL (0.0-0.4); Eosinophils Percent Auto 2.1 % (0-4); Hematocrit 40.2 % (42.0-52.0); Imm Gran Abs Auto 0.02 X10*3/uL (0.00-0.03); Imm Gran Pct Auto 0.4 % (0.0-0.4); Lymphocytes Absolute Auto 1.3 X10*3/uL (1.2-4.9); Lymphocytes Percent Auto 25.7 % (20-40); Mean Corpuscular HGB Conc 32.3 g/dl (31.0-36.0); Mean Corpuscular Hemoglobin 28.1 pg (27.0-33.0); Mean Platelet Volume 11.1 fL (9.4-12.4); Monocytes Absolute Auto 0.7 X10*3/uL (0.1-1.2); Monocytes Percent Auto 12.9 % (2-11); Neutrophils Percent Auto 58.5 % (45-73); Platelet Count 148 X10*3/uL (160-400); Red Blood Count 4.62 X10*6/uL (4.60-5.80); White Blood Count 5.1 X10*3/uL (4.8-10.8)
[2021-08-28 18:05] LABS: Uric Acid 8.6 mg/dL (3.4-7.0)
== END 2021-08-28 17:16 | disposition home or self-care (01) ==
LOC: HO.HSH3W 17:15
PROVIDERS: Visit Provider Nurse Practitioner
DX: M19.90 Unspecified osteoarthritis, unspecified site (principal)
CPT/HCPCS: 36415; 84550; 85025

== ENCOUNTER 2021-12-18 10:18 | Inpatient (IN) | payer OTHER, MEDICARE, SELFPAY ==
--- NOTE | ~2021-12-18 | MR_ITS ---
EXAMINATION: MR ABDOMEN WITHOUT CONTRAST CLINICAL INFORMATION: Abdominal pain. Common bile duct dilatation on CT exam. COMPARISON: CT abdomen from 12/18/2021. TECHNIQUE: Noncontrast multiplanar MR imaging examination of the abdomen performed on a high-field magnet. Heavily T2-weighted sequences as part of MRCP protocol were obtained. FINDINGS: LUNG BASES: Trace right pleural effusion. Mild atelectasis at posterior bases. LIVER: Mild hepatic steatosis is observed on the opposed phase gradient echo images. The caudate lobe is mildly hypertrophied with caudate-right lobe ratio of 0.66, which raises suspicion for possible underlying cirrhosis. No focal liver lesion is observed on these noncontrast images. GALLBLADDER AND BILIARY TREE: The gallbladder is physiologically distended and contains layering sludge and calculi. The gallbladder wall is approximately 0.3 cm thick. Mild edema is present in the pericholecystic fat. The common duct measures 0.6 cm diameter and has normal smooth contour. No evidence of choledocholithiasis. No intrahepatic bile duct dilatation. PANCREAS: Normal. No edema, pancreatic ductal dilatation or mass. SPLEEN: Persistent splenomegaly. Spleen is 15.7 cm in craniocaudal dimension. ADRENAL GLANDS: Normal. KIDNEYS: Kidneys are normal in size. No renal mass or hydronephrosis. Mild bilateral perinephric edema is present. BOWEL AND PERITONEUM: Moderate hiatal hernia of the stomach. No dilated bowel loops. No focal bowel wall thickening. No ascites. VASCULATURE: Atherosclerotic abdominal aorta is normal in caliber. Inferior vena cava is normal. LYMPH NODES: A slightly prominent lymph node in the periportal region is 0.9 cm in short axis dimension, and portacaval lymph node approximately 1 cm short axis dimension. No retroperitoneal lymphadenopathy. SKELETAL: Chronic multilevel degenerative disc disease of the lumbar spine, and there is grade 1 anterolisthesis at L5-S1 (image 9, series 1). No suspicious osseous lesions. MR/MR MRCP IMPRESSION: * Mild hepatic steatosis and likely cirrhosis with splenomegaly. * Mild lymphadenopathy in the periportal region is likely reactive to the hepatic disease. * Cholelithiasis and findings equivocal for acute cholecystitis. Gallbladder wall is minimally thickened and there is edema of the pericholecystic fat, but this is nonspecific. If the patient clinically has right upper quadrant pain with Curiel's sign, then acute cholecystitis would be suspected. Alternatively, findings could be reactive to liver disease. Note that hepatitis can be associated with gallbladder wall thickening. * No evidence of choledocholithiasis. No biliary tract obstruction.
--- NOTE | ~2021-12-18 | CT_ITS ---
EXAMINATION: CT ABDOMEN AND PELVIS WITHOUT CONTRAST CLINICAL INFORMATION: Left lower quadrant abdominal pain, constipation. COMPARISON: CT abdomen/pelvis 08/09/2020. TECHNIQUE: Multidetector volumetric imaging was performed from the superior aspect of the liver through the pubic symphysis. Sagittal and coronal reformatted images were obtained on the technologist's workstation. This CT examination was performed using dose optimization techniques as appropriate, variously including the following: *Automated exposure control *Adjustment of mA and/or kV according to patient size (this includes techniques or standardized protocols for targeted exams where dose is matched to indication/reason for exam; i.e. extremities or head) *Use of iterative reconstruction technique DLP: 546 mGy-cm FINDINGS: LUNG BASES: Evaluation of pulmonary nodules and parenchymal details is limited due to respiratory motion. There is increased ground-glass attenuation and possible small tree-in-bud nodularities in the right middle lobe. There is also worsening smooth septal thickening bilaterally. A few more isolated subcentimeter pulmonary nodules are unchanged, for instance a 0.3 cm right middle lobe nodule on image 143 of series 4). LIVER, GALLBLADDER, AND BILIARY TREE: Suggestion of nodular contour of the liver with enlargement of the caudate lobe raising the possibility of cirrhosis. No discrete focal liver abnormality in this limited non-contrast examination. Cholelithiasis with mild pericholecystic fat stranding. New CBD dilatation measuring up to 1 cm in maximum diameter. PANCREAS: Unremarkable. SPLEEN: Splenomegaly measuring 15.2 cm craniocaudally, unchanged. ADRENAL GLANDS: Unremarkable. KIDNEYS AND URETERS: Nonspecific mild symmetric perinephric fat stranding. No nephrolithiasis or hydronephrosis. BLADDER: Unremarkable. GASTROINTESTINAL TRACT: Moderate sized hiatal hernia again noted. The stomach and the small bowel are nondilated. Normal appendix. Moderate sigmoid diverticulosis with no significant associated fat stranding to suspect acute diverticulitis. No bowel obstruction. ABDOMINAL WALL: Small bilateral fat-containing inguinal hernias. LYMPH NODES: Postsurgical changes from prior prostatectomy and iliac node dissection. Prominent peripancreatic and periportal lymph nodes are stable, for instance measuring 0.8 cm in short axis on image 31 and 0.7 cm in short axis on image 34 of series 3. Mild upper mesenteric fat haziness with prominent but subcentimeter short axis associated mesenteric lymph nodes (3:41) are unchanged. Fairly symmetric inguinal lymph nodes, likely reactive. VASCULAR: Atherosclerotic disease. Abdominal aorta is of normal diameter. PELVIC VISCERA: Prostatectomy as above. OSSEOUS STRUCTURES: Diffuse nonspecific heterogeneity of the bone marrow with advance thoracolumbar spondylosis, stable. Grade 2 anterolisthesis of L5 on S1 with bilateral L5 pars defects again noted. No new destructive osseous lesions. CT/CT abdomen pelvis wo con IMPRESSION: 1. Cholelithiasis with mild surrounding pericholecystic fat stranding concerning for acute cholecystitis in the appropriate clinical setting. 2. New dilatation of the common bile duct. If choledocholithiasis is suspected, correlation with MRCP is recommended. 3. Nodularity of the liver contour with hypertrophy of the caudate raising the possibility of hepatocellular disease and cirrhosis. The possibility of portal hypertension is also raised in the setting of splenomegaly. 4. Periportal lymphadenopathy and upper mesenteric haziness, unchanged. 5. Moderate diverticulosis but no evidence to suggest acute diverticulitis. 6. Increased groundglass attenuation and tree-in-bud nodularities in the right middle lobe suggesting an infectious or inflammatory process of the small airways. There is also increased smooth septal thickening suggesting pulmonary edema. Correlate clinically and consider a follow-up chest CT to reassess.
--- NOTE | ~2021-12-18 | XR_ITS ---
EXAMINATION: XR CHEST CLINICAL INFORMATION: Question pneumonia or edema. COMPARISON: 02/06/2020 chest radiographs. TECHNIQUE: 2 views of the chest were obtained. FINDINGS: Mild coarsened interstitial markings are seen bilaterally. There are no pleural effusions. The heart and mediastinal structures are unremarkable. XR/XR chest 2V IMPRESSION: Mildly coarsened interstitial markings bilaterally appear similar to the previous study, likely representing mild chronic changes. No definitive acute abnormality.
[2021-12-18 10:38] VITALS: BP 158/98; PULSE 101; O2SAT 96
[2021-12-18 10:42] VITALS: BP 170/110; PULSE 70; RESP 16; TEMP 36.3; O2SAT 97; BMI 25.3
[2021-12-18 11:26] LABS: MANUAL DIFF FLAG NO
[2021-12-18] MEDS: 0.9 % Sodium Chloride 1,000 ML 999 ML IV (11:26)
[2021-12-18] MEDS: ondansetron HCL 4 MG/2 ML VIAL IVPUSH (11:26)
--- NOTE | 2021-12-18 11:29 | ED_ITS ---
HPI - Abdominal Pain General Chief Complaint: Abdominal Pain Stated Complaint: abdo pain 01/03 Time Seen by Provider: 12/18/21 10:44 Source: patient History of Present Illness HPI narrative: 76-year-old male with a past medical history of Hoffman's esophagus, cirrhosis, dementia, diverticulitis, prostate CA, presenting to the ED from [facility] complaining diffuse abdominal pain / cramping, nausea and constipation x2 days without BM. Denies passing flatus. Per facility gave enema without improvement. denies fever, chills, vomiting, dysuria/ hematuria, flank pain MD elicited complaint: abdominal pain Pertinent past history: constipation Pain Consistency: constant Related Data Home Medications Medication Instructions Recorded Confirmed allopurinol 100 mg tablet 50 mg PO Q2D 12/18/21 12/18/21 aspirin 81 mg chewable tablet 81 mg PO DAILY 12/18/21 12/18/21 cholecalciferol (vitamin D3) 50 50 mcg PO DAILY 12/18/21 12/18/21 mcg (2,000 unit) tablet clopidogrel 75 mg tablet 75 mg PO DAILY 12/18/21 12/18/21 loratadine 10 mg tablet 10 mg PO BEDTIME 12/18/21 12/18/21 metoprolol succinate 25 mg 1 tab PO DAILY 12/18/21 12/18/21 tablet,extended release 24 hr mirtazapine 30 mg tablet 1 tab PO BEDTIME 12/18/21 12/18/21 pantoprazole 40 mg tablet,delayed 40 mg PO DAILY 12/18/21 12/18/21 release thiamine HCl (vitamin B1) 100 mg 100 mg PO DAILY 12/18/21 12/18/21 tablet tramadol 50 mg tablet 50 mg PO Q12H PRN pain 12/18/21 Allergies Allergy/AdvReac Type Severity Reaction Status Date / Time lisinopril [LISINOPRIL] Allergy Mild UNKNOWN Unverified 02/11/20 19:45 baclofen [BACLOFEN] Allergy Unknown UNKNOWN Unverified 02/11/20 19:45 shellfish derived Allergy Unknown UNKNOWN Unverified 02/11/20 19:45 [SHELLFISH DERIVED] Review of Systems Review of Systems Constitutional: No Fever, No Chills, No Fatigue, No Malaise ENT/Mouth: No Hearing loss, No Ear Pain, No Nasal Congestion, No sore throat, No Rhinorrhea, No Swallowing Difficulty Eyes: No Eye Pain, No Swelling, No Redness Cardiovascular: No Chest Pain, No SOB, No Edema, No Palpitations Respiratory: No Cough, No Sputum, No Dyspnea Gastrointestinal: + Nausea, No Vomiting, No Diarrhea, + Constipation, + Abdominal pain, No Hematochezia, No Melena Genitourinary: No Dysuria, No Urinary Frequency, No Hematuria, No Urinary Incontinence/retention, No Flank Pain, No Urinary Flow Changes Musculoskeletal: No joint pain, No Myalgias, No Joint Swelling Skin: No Skin Lesions, No rash Neuro: No Weakness, No Dizziness, No Headache Yes all other systems are reviewed and are negative Constitutional: Reports as per [facility] Past Medical History Attestation statement: The following information was validated with the patient. Medical History Hoffman esophagus Cirrhosis of liver Dementia Diverticulitis Malignant neoplasm of prostate Surgical History (Updated 08/09/20 @ 12:30 by Manuel Pino) H/O radical prostatectomy Social History Social History Alcohol intake: former Advance Directives: No Advance Directives Information Provided: Yes Advance Directives Date on File: 08/09/20 Physical Exam ED Vital Signs: Vital Signs - 24 hr 12/18/21 10:42 12/18/21 14:08 Temperature 97.4 F Pulse Rate 70 96 Respiratory Rate 16 20 Blood Pressure 170/110 H 148/88 H Pulse Oximetry 97 90 L Oxygen Delivery Method Room Air Room Air BMI result Body Mass Index 25.3 Const General: cooperative, healthy appearing and no acute distress Orientation/consciousness: patient oriented x3 Limitations: no limitations [facility] Head: Yes normal to inspection and Yes atraumatic Ears: hearing grossly normal bilaterally General nose exam: Normal external nose present Face and sinus: Yes normal facial exam Eyes General: appearance normal, both eyes and all related structures EOM: EOMs intact bilaterally Neck Neck: Yes normal visual inspection and Yes no meningeal signs Resp Effort & Inspection: normal respiratory effort and no respiratory distress Auscultation: clear to auscultation bilaterally Cardio Rate: regular rate Heart sounds: S1 normal heart sound present and S2 normal heart sound present GI Inspection: Yes normal to inspection and No distended Palpation (GI): Soft to palpation, Tenderness to palpation present (GI) in the LLQ and in the RLQ; with no rebound tenderness, no guarding and not rigid General: Yes no CVA tenderness Back/Spine/Pelvis Back: no CVA tenderness Skin Rashes: no rashes Wounds: no wounds Neuro General: patient oriented x3, tone normal and no meningeal signs Gait exam (Neuro): Normal gait present Extrem General: Yes normal to inspection Course Course Course Narrative: -1139-- mild leukocytosis of 12.3 -1338-- chronic CKD at patient's baseline CT abdomen pelvis wo con IMPRESSION: 1.? Cholelithiasis with mild surrounding pericholecystic fat stranding concerning for acute cholecystitis in the appropriate clinical setting. ? 2. New dilatation of the common bile duct. If choledocholithiasis is suspected, correlation with MRCP is recommended. ? 3. Nodularity of the liver contour with hypertrophy of the caudate raising the possibility of hepatocellular disease and cirrhosis. The possibility of portal hypertension is also raised in the setting of splenomegaly. ? 4. Periportal lymphadenopathy and upper mesenteric haziness, unchanged. ? 5. Moderate diverticulosis but no evidence to suggest acute diverticulitis. ? 6. Increased groundglass attenuation and tree-in-bud nodularities in the right middle lobe suggesting an infectious or inflammatory process of the small airways. There is also increased smooth septal thickening suggesting pulmonary edema. Correlate clinically and consider a follow-up chest CT to reassess. ? ?>> On re-evaluation patient reports continued pain, repeat exam of the abdomen is soft now with localized RUQ tenderness concerning for acute cholecystitis. After palpation patient with bile emesis. General surgery consulted. Will also obtain CXR, BNP, and COVID-19 testing. Patient denies cough, SOB, no evidence of CHF on physical exam. -1351-- Dr. Moreira will see patient after office hours -1420-- repeat vitals patient's emesis episode noted to be hypoxic at 90% > ? aspiration >> will obtain blood cultures and give empiric IV Zosyn > O2 94-95% on 2 L NC - BNP resulted elevated at 1395, no available priors > concern for new onset CHF >> 40mg IV Lasix ordered > plan to admit to hospitalist for further management MDM - Abdominal Pain MDM Narrative Medical decision making narrative: 76-year-old male with a past medical history of Hoffman's esophagus, cirrhosis, dementia, diverticulitis, prostate CA, presenting to the ED from [facility] complaining diffuse abdominal pain / cramping, nausea and constipation x2 days without BM. on exam hypertensive likely from pain, nontoxic appearing, abdomen soft LLQ & RLQ tenderness no rebound or guarding. Lungs CTA. Concern for diverticulitis vs SBO vs constipation vs appendicitis. Lower suspicion for cholecystitis/ lithiasis at this time Plan: Labs, UA, CT AP, IVF, antiemetics Differential Diagnosis Differential diagnosis: Likely abdominal pain, constipation, diverticulitis and small bowel obstruction Medical Records Attestation: I reviewed the patient's medical records. Lab Data Attestation: I reviewed the patient's lab results. Result diagrams: 12/18/21 11:23 12/18/21 11:23 Labs: Lab Results 12/18/21 12/18/21 12/18/21 Range/Units 11:23 11:23 11:23 WBC 12.3 H (4.8-10.8) X10*3/uL RBC 5.30 (4.60-5.80) X10*6/uL Hgb 14.9 (14.0-18.0) g/dl Hct 44.7 (42.0-52.0) % MCV 84.3 (80.0-98.0) fL MCH 28.1 (27.0-33.0) pg MCHC 33.3 (31.0-36.0) g/dl RDW 13.7 (11.0-16.0) % Plt Count 180 (160-400) X10*3/uL MPV 9.7 (9.4-12.4) fL Immature Gran % (Auto) 0.4 (0.0-0.4) % Neut % (Auto) 82.6 H (45-73) % Lymph % (Auto) 8.8 L (20-40) % [place] % (Auto) 7.9 (2-11) % Eos % (Auto) 0.1 (0-4) % Baso % (Auto) 0.2 (0-2) % Lymph # (Auto) 1.1 L (1.2-4.9) X10*3/uL [place] # (Auto) 1.0 (0.1-1.2) X10*3/uL Eos # (Auto) 0.0 (0.0-0.4) X10*3/uL Baso # (Auto) 0.0 (0.0-0.2) X10*3/uL Abs Immat Gran (auto) 0.05 H (0.00-0.03) X10*3/uL Absolute Neuts (auto) 10.2 H (2.0-8.3) x10*3/uL Absolute Nucleated RBC 0.000 (0.0-0.012) X10*3/uL Nucleated RBC % (auto) 0.0 (0.0-0.2) /100WBC Sodium 138 (135-145) mmol/L Potassium 5.0 D (3.3-5.1) mmol/L Chloride 107 (96-108) mmol/L Carbon Dioxide 21 L (22-29) mmol/L Anion Gap 15 (12-20) BUN 19 H (9-16) mg/dL Creatinine 2.07 H (0.5-1.4) mg/dL Estim Creat Clear Calc 29.4 Estimated GFR 31 Random Glucose 139 H (60-115) mg/dL Calcium 9.2 (8.4-10.2) mg/dL Magnesium 2.2 (1.6-2.6) mg/dL Total Bilirubin 0.8 (0.0-1.0) mg/dL Direct Bilirubin 0.3 (0.0-0.5) mg/dL AST 11 D (5-37) U/L ALT 7 (0-40) U/L Alkaline Phosphatase 78 D (39-117) U/L B-Natriuretic Peptide 1395 H (<100) pg/mL Total Protein 7.0 (6.5-8.0) g/dL Albumin 4.3 (3.5-5.0) g/dL Lipase 19 (8-78) U/L COVID-19 (TARA) (Negative) COVID-19 Clin Com 12/18/21 Range/Units 14:07 WBC (4.8-10.8) X10*3/uL RBC (4.60-5.80) X10*6/uL Hgb (14.0-18.0) g/dl Hct (42.0-52.0) % MCV (80.0-98.0) fL MCH (27.0-33.0) pg MCHC (31.0-36.0) g/dl RDW (11.0-16.0) % Plt Count (160-400) X10*3/uL MPV (9.4-12.4) fL Immature Gran % (Auto) (0.0-0.4) % Neut % (Auto) (45-73) % Lymph % (Auto) (20-40) % [place] % (Auto) (2-11) % Eos % (Auto) (0-4) % Baso % (Auto) (0-2) % Lymph # (Auto) (1.2-4.9) X10*3/uL [place] # (Auto) (0.1-1.2) X10*3/uL Eos # (Auto) (0.0-0.4) X10*3/uL Baso # (Auto) (0.0-0.2) X10*3/uL Abs Immat Gran (auto) (0.00-0.03) X10*3/uL Absolute Neuts (auto) (2.0-8.3) x10*3/uL Absolute Nucleated RBC (0.0-0.012) X10*3/uL Nucleated RBC % (auto) (0.0-0.2) /100WBC Sodium (135-145) mmol/L Potassium (3.3-5.1) mmol/L Chloride (96-108) mmol/L Carbon Dioxide (22-29) mmol/L Anion Gap (12-20) BUN (9-16) mg/dL Creatinine (0.5-1.4) mg/dL Estim Creat Clear Calc Estimated GFR Random Glucose (60-115) mg/dL Calcium (8.4-10.2) mg/dL Magnesium (1.6-2.6) mg/dL Total Bilirubin (0.0-1.0) mg/dL Direct Bilirubin (0.0-0.5) mg/dL AST (5-37) U/L ALT (0-40) U/L Alkaline Phosphatase (39-117) U/L B-Natriuretic Peptide (<100) pg/mL Total Protein (6.5-8.0) g/dL Albumin (3.5-5.0) g/dL Lipase (8-78) U/L COVID-19 (ATRA) Negative (Negative) COVID-19 Clin Com See Note Critical Care Time Critical Care Time Critical Care Time: Yes Total Critical Care Time: 45 Attestation: I have personally provided critical care time exclusive of time spent on separately billable procedures. Time includes review of lab data, radiology results, discussion with consultants, and monitoring for potential decompensation. Intervention performed as documented. Discharge Plan Discharge Clinical Impression: Acute cholecystitis, Aspiration into airway, New onset of congestive heart failure Patient Disposition: Admitted As Inpatient
[2021-12-18 11:30] LABS: Basophils Percent Auto 0.2 % (0-2); Eosinophils Percent Auto 0.1 % (0-4); Hematocrit 44.7 % (42.0-52.0); Hemoglobin 14.9 g/dl (14.0-18.0); Imm Gran Abs Auto 0.05 X10*3/uL (0.00-0.03); Imm Gran Pct Auto 0.4 % (0.0-0.4); Lymphocytes Absolute Auto 1.1 X10*3/uL (1.2-4.9); Lymphocytes Percent Auto 8.8 % (20-40); Mean Corpuscular HGB Conc 33.3 g/dl (31.0-36.0); Mean Corpuscular Hemoglobin 28.1 pg (27.0-33.0); Mean Corpuscular Volume 84.3 fL (80.0-98.0); Mean Platelet Volume 9.7 fL (9.4-12.4); Monocytes Percent Auto 7.9 % (2-11); Neutrophils Absolute Auto 10.2 x10*3/uL (2.0-8.3); Neutrophils Percent Auto 82.6 % (45-73); Platelet Count 180 X10*3/uL (160-400); Red Cell Distribution Width 13.7 % (11.0-16.0); White Blood Count 12.3 X10*3/uL (4.8-10.8)
[2021-12-18 11:55] LABS: Alanine Aminotransferase 7 U/L (0-40); Albumin Level 4.3 g/dL (3.5-5.0); Alkaline Phosphatase 78 U/L (39-117); Anion Gap 15 (12-20); Aspartate Amino Transferase 11 U/L (5-37); Bilirubin Direct 0.3 mg/dL (0.0-0.5); Bilirubin Total 0.8 mg/dL (0.0-1.0); Blood Urea Nitrogen 19 mg/dL (9-16); Calcium 9.2 mg/dL (8.4-10.2); Carbon Dioxide 21 mmol/L (22-29); Chloride 107 mmol/L (96-108); Creatinine Clr Calc Pharmacy 29.4; Estimated Glomerular Filt Rate 31; Glucose Random 139 mg/dL (60-115); Lipase 19 U/L (8-78); Magnesium 2.2 mg/dL (1.6-2.6); Sodium 138 mmol/L (135-145)
[2021-12-18] MEDS: Morphine Sulfate 2 MG/ML CARTRIDGE IVPUSH (14:07)
[2021-12-18] MEDS: Metoclopramide HCl 10 MG/2 ML VIAL IVPUSH (14:07)
[2021-12-18 14:08] VITALS: BP 148/88; PULSE 96; RESP 20; O2SAT 90
[2021-12-18 14:14] LABS: B Type Natriuretic Peptide 1395 pg/mL (<100)
[2021-12-18 14:31] LABS: COVID-19 Test Negative (Negative)
--- NOTE | 2021-12-18 14:45 | PHA.MEDREC ---
Pharmacy Consult ? Medication Reconciliation Pharmacy has completed the medication reconciliation.
[2021-12-18 14:52] VITALS: BP 159/91; PULSE 93; RESP 20; TEMP 36.9; O2SAT 94
[2021-12-18] MEDS: Furosemide 40 MG/4 ML VIAL IVPUSH (14:54)
[2021-12-18] MEDS: Piperacillin Sodium/Tazobactam 3.375 GM in 0.9 % Sodium Chloride 50 ML IV (14:54)
[2021-12-18 15:14] LABS: Troponin-I High Sensitivity 131.2 ng/L (<3.5-35.0)
--- NOTE | 2021-12-18 15:22 | PM.IMHP ---
History of Present Illness Date of Service: 12/18/21 Chief Complaint: abd [facility] 76[facility], poor historian, history obtained primarly from ED and longterm. patient presented with diffuse abdominal pain, 2 days, a/w nausea, vomitting. in ED patient denies sob, chest pain, reports ongoing abd pain. CT abd suspcious for acute cholecystitis, also bibasialr ground glass opacities suspiocus for aspiratoin. trop elevated, bnp elevated. Review of Systems Review of Systems: Yes Unobtainable due to mental status [facility] Medical History Hoffman esophagus Cirrhosis of liver Dementia Diverticulitis Malignant neoplasm of prostate Family History Father CAD (coronary artery disease) Surgical History H/O radical prostatectomy Social History Alcohol intake: former Advance Directives: No Advance Directives Information Provided: Yes Advance Directives Date on File: 08/09/20 Meds Allergies Allergy/AdvReac Type Severity Reaction Status Date / Time lisinopril [LISINOPRIL] Allergy Mild UNKNOWN Unverified 02/11/20 19:45 baclofen [BACLOFEN] Allergy Unknown UNKNOWN Unverified 02/11/20 19:45 shellfish derived Allergy Unknown UNKNOWN Unverified 02/11/20 19:45 [SHELLFISH DERIVED] Active Medications: Current Medications Acetaminophen (Acetaminophen 325 Mg Tablet) 650 mg PO Q6H PRN PRN Reason: Pain, Mild (Pain Scale 1-3) Allopurinol (Allopurinol 100 Mg Tablet) 50 mg PO Q2D [facility] Aspirin (Aspirin 81 Mg Tab.Chew) 81 mg PO DAILY [facility] Clopidogrel Bisulfate (Clopidogrel Bisulfate 75 Mg Tablet) 75 mg PO DAILY [facility] Furosemide (Furosemide 40 Mg/4 Ml Vial) 40 mg IVPUSH BID@0900,1800 [facility]; Protocol Heparin Sodium (Porcine) (Heparin Sodium,Porcine 5,000 Unit/Ml Vial) 5,000 unit SUBCUT Q8H [facility] Ampicillin Sodium/Sulbactam (Sodium 1.5 gm/ Sodium Chloride) 100 mls @ 200 mls/hr IV Q8H [facility] Loratadine (Loratadine 10 Mg Tablet) 10 mg PO BEDTIME [facility] Mirtazapine (Mirtazapine 30 Mg Tablet) 30 mg PO BEDTIME [facility] Non-Formulary Medication (Pantoprazole) 40 mg PO DAILY [facility] Pharmacy Consult (Consult Rx Perform Med Rec) 1 each MISCELLANE ONCE PRN PRN Reason: Consult order Sodium Chloride (0.9 % Sodium Chloride Flush 3 Ml Syringe) 3 ml IVFLUSH QSHIFT [facility] Thiamine HCl (Thiamine Hcl 100 Mg Tablet) 100 mg PO DAILY [facility] Vitamin D (Cholecalciferol (Vitamin D3) 25 Mcg Tablet) 50 mcg PO DAILY [facility] Home Medications Medication Instructions Recorded Confirmed Last Taken Type allopurinol 100 mg tablet 50 mg PO Q2D 12/18/21 12/18/21 12/16/21 History aspirin 81 mg chewable tablet 81 mg PO DAILY 12/18/21 12/18/21 12/17/21 History cholecalciferol (vitamin D3) 50 50 mcg PO DAILY 12/18/21 12/18/21 12/17/21 History mcg (2,000 unit) tablet clopidogrel 75 mg tablet 75 mg PO DAILY 12/18/21 12/18/21 12/17/21 History loratadine 10 mg tablet 10 mg PO BEDTIME 12/18/21 12/18/21 12/17/21 History metoprolol succinate 25 mg 1 tab PO DAILY 12/18/21 12/18/21 12/17/21 History tablet,extended release 24 hr mirtazapine 30 mg tablet 1 tab PO BEDTIME 12/18/21 12/18/21 12/17/21 History pantoprazole 40 mg tablet,delayed 40 mg PO DAILY 12/18/21 12/18/21 12/17/21 History release thiamine HCl (vitamin B1) 100 mg 100 mg PO DAILY 12/18/21 12/18/21 12/17/21 History tablet tramadol 50 mg tablet 50 mg PO Q12H PRN pain 12/18/21 12/18/21 12/17/21 History Physical Exam Vital Signs and Narrative: Vital Signs: Last Vital Signs Temp 98.5 F 12/18/21 14:52 Pulse 93 12/18/21 14:52 Resp 20 12/18/21 14:52 BP 159/91 H 12/18/21 14:52 Pulse Ox 94 07/25/22 14:52 O2 Del Method 12/18/21 14:52 O2 Flow Rate 3 12/18/21 14:52 BMI result Body Mass Index 25.3 General: no acute distress HEENT: atraumatic Neck: normal to visual inspection CVS: S1, S2, RRR Resp: Crackles bilateral Chest: non tender GI: soft, tender, non distended : no CVA tenderness Skin: no rashes Extremities: no edema Neuro: Oriented X1, grossly intact Psych: cooperative, impaired insight Results Labs CBC and Chem 7: 12/18/21 11:23 12/18/21 11:23 Labs: Laboratory Results - last 24 hr 12/18/21 12/18/21 12/18/21 11:23 11:23 11:23 MCV 84.3 MCH 28.1 MCHC 33.3 RDW 13.7 Plt Count 180 MPV 9.7 Immature Gran % (Auto) 0.4 Neut % (Auto) 82.6 H Lymph % (Auto) 8.8 L [place] % (Auto) 7.9 Eos % (Auto) 0.1 Baso % (Auto) 0.2 Lymph # (Auto) 1.1 L [place] # (Auto) 1.0 Eos # (Auto) 0.0 Baso # (Auto) 0.0 Abs Immat Gran (auto) 0.05 H Absolute Neuts (auto) 10.2 H Absolute Nucleated RBC 0.000 Nucleated RBC % (auto) 0.0 Anion Gap 15 Estim Creat Clear Calc 29.4 Estimated GFR 31 Random Glucose 139 H Calcium 9.2 Magnesium 2.2 Total Bilirubin 0.8 Direct Bilirubin 0.3 AST 11 D ALT 7 Alkaline Phosphatase 78 D Troponin I High Sens 131.2 H* B-Natriuretic Peptide 1395 H Total Protein 7.0 Albumin 4.3 Lipase 19 COVID-19 (TARA) COVID-19 Clin Com 12/18/21 14:07 MCV MCH MCHC RDW Plt Count MPV Immature Gran % (Auto) Neut % (Auto) Lymph % (Auto) [place] % (Auto) Eos % (Auto) Baso % (Auto) Lymph # (Auto) [place] # (Auto) Eos # (Auto) Baso # (Auto) Abs Immat Gran (auto) Absolute Neuts (auto) Absolute Nucleated RBC Nucleated RBC % (auto) Anion Gap Estim Creat Clear Calc Estimated GFR Random Glucose Calcium Magnesium Total Bilirubin Direct Bilirubin AST ALT Alkaline Phosphatase Troponin I High Sens B-Natriuretic Peptide Total Protein Albumin Lipase COVID-19 (TARA) Negative COVID-19 Clin Com See Note Imaging Radiologist's Impressions: Impressions Abdomen/Pelvis CT 12/18/21 12:11 IMPRESSION: 1. Cholelithiasis with mild surrounding pericholecystic fat stranding concerning for acute cholecystitis in the appropriate clinical setting. 2. New dilatation of the common bile duct. If choledocholithiasis is suspected, correlation with MRCP is recommended. 3. Nodularity of the liver contour with hypertrophy of the caudate raising the possibility of hepatocellular disease and cirrhosis. The possibility of portal hypertension is also raised in the setting of splenomegaly. 4. Periportal lymphadenopathy and upper mesenteric haziness, unchanged. 5. Moderate diverticulosis but no evidence to suggest acute diverticulitis. 6. Increased groundglass attenuation and tree-in-bud nodularities in the right middle lobe suggesting an infectious or inflammatory process of the small airways. There is also increased smooth septal thickening suggesting pulmonary edema. Correlate clinically and consider a follow-up chest CT to reassess. Chest X-Ray 12/18/21 14:09 IMPRESSION: Mildly coarsened interstitial markings bilaterally appear similar to the previous study, likely representing mild chronic changes. No definitive acute abnormality. Assessment and Plan (1) Acute cholecystitis: Status: Acute Plan 76M presented with abdominal pain, found to have acute cholecystitis, elevated troponin, chf, suspect aspiratoin pneumonia acute cholecystitis unasyn, cultures, surgery eval, monitor lfts aspiration pneumonia vs pnuemonitis unasyn acute chf unspecified iv lasix, monitor electrolytes, echo elevated troponin no chest pain, ?type II nstemi follow up repeat, cardio eval ETOH cirrhosis sober 5 years, appears compensated ? cad dapl prostate ca outpatient follow up dementia at baseline, likely related to etoh barretts esophogus ppi dvt prophylaxis - hep sq dnr/dni pateint with acute cholecystits, chf, pneumonia, with risk factors including advanced age, frailty, cirrhosis, cad, therefore, expected to require atleast 2 midnights in hospital Quality Stroke Does the patient have a stroke diagnosis?: No VTE Prior VTE?: No VTE Risk Level:: Medical - moderate - high VTE Device Contraindication: Treatment Not Indicated VTE Drug Contraindication: N/A - Med Ordered
[2021-12-18] MEDS: 0.9 % Sodium Chloride Flush 3 ML SYRINGE IVFLUSH (16:00)
[2021-12-18 16:13] LABS: Appearance Urine CLEAR; Color Urine YELLOW; Glucose Urine UA NEG (NEG); Leukocyte Esterase Urine NEG (NEG); Nitrite Urine NEG (NEG); PH 5.5 (5.0-8.0); UACC Culture Trigger NO; Urine Blood TRACE (NEG); Urine Ketones NEG (NEG); Urine Protein NEG (NEG-TRACE)
[2021-12-18] MEDS: allopurinoL 100 MG TABLET 50 MG PO (16:16)
[2021-12-18] MEDS: Heparin Sodium,Porcine 5,000 UNIT/ML VIAL 5000 UNIT SUBCUT (16:17)
[2021-12-18 16:28] LABS: Bacteria Urine TRACE /LPF; Squamous Epithelial Cell Urine TRACE /LPF; WBC Urine 0 /HPF (0-4)
--- NOTE | 2021-12-18 17:05 | P.CONGS_ITS ---
History of Present Illness Consult details Consult date: 12/18/21 Narrative: 76M sent by the SD for report of abdominal pain and vomitting. The patient does not appear to be a good historian at all. He does not provide [facility] with regards to details. Right now, he actually robles abdominal pain and tenderness. He had a CT done suggesting mild cute cholecystitis. He also had elevated BNP a nd possible aspiration pneumonitis. Again, not much is available from the pt with regards to history. Review of Systems Review of Systems: pt does not provide much details [facility] Past Medical History Medical History (Updated 12/21/21 @ 11:15 by Nnamdi Damon MD) Hoffman esophagus Cirrhosis of liver Dementia Diverticulitis Malignant neoplasm of prostate Family History Family History Father CAD (coronary artery disease) Surgical History Surgical History H/O radical prostatectomy Social History Social History Housing: Assisted Living Facility Alcohol intake: former Patient Tobacco Use Status: Never used Tobacco Advance Directives Date on File: 08/09/20 service: Yes Current occupational status: retired Meds Allergies Allergy/AdvReac Type Severity Reaction Status Date / Time lisinopril [LISINOPRIL] Allergy Mild UNKNOWN Unverified 02/11/20 19:45 baclofen [BACLOFEN] Allergy Unknown UNKNOWN Unverified 02/11/20 19:45 shellfish derived Allergy Unknown UNKNOWN Unverified 02/11/20 19:45 [SHELLFISH DERIVED] Active Medications: Current Medications Acetaminophen (Acetaminophen 325 Mg Tablet) 650 mg PO Q6H PRN PRN Reason: Pain, Mild (Pain Scale 1-3) Allopurinol (Allopurinol 100 Mg Tablet) 50 mg PO Q2D SERGIO Last Admin: 12/18/21 16:16 Dose: 50 mg Aspirin (Aspirin 81 Mg Tab.Chew) 81 mg PO DAILY SERGIO Clopidogrel Bisulfate (Clopidogrel Bisulfate 75 Mg Tablet) 75 mg PO DAILY SERGIO Furosemide (Furosemide 40 Mg/4 Ml Vial) 40 mg IVPUSH BID@0900,1800 SERGIO; Protocol Heparin Sodium (Porcine) (Heparin Sodium,Porcine 5,000 Unit/Ml Vial) 5,000 unit SUBCUT Q8H FOR[facility]LY [facility], [facility] Last Admin: 12/18/21 16:17 Dose: 5,000 unit Ampicillin Sodium/Sulbactam (Sodium 1.5 gm/ Sodium Chloride) 100 mls @ 200 mls/hr IV Q8H [facility], [facility]–1983 Loratadine (Loratadine 10 Mg Tablet) 10 mg PO BEDTIME FOR[facility], [facility] Mirtazapine (Mirtazapine 30 Mg Tablet) 30 mg PO BEDTIME FOR[facility], [facility] Omeprazole (Omeprazole 20 Mg Capsule.Dr) 20 mg PO DAILY FOR[facility], [facility] Pharmacy Consult (Consult Rx Perform Med Rec) 1 each MISCELLANE ONCE PRN PRN Reason: Consult order Sodium Chloride (0.9 % Sodium Chloride Flush 3 Ml Syringe) 3 ml IVFLUSH QSHIFT FOR[facility], [facility] Last Admin: 12/18/21 16:00 Dose: 3 ml Thiamine HCl (Thiamine Hcl 100 Mg Tablet) 100 mg PO DAILY [facility], [facility] Vitamin D (Cholecalciferol (Vitamin D3) 25 Mcg Tablet) 50 mcg PO DAILY FOR[facility], [facility] Home Medications Medication Instructions Recorded Confirmed Last Taken Type allopurinol 100 mg tablet 50 mg PO Q2D 12/18/21 12/18/21 12/16/21 History aspirin 81 mg chewable tablet 81 mg PO DAILY 12/18/21 12/18/21 12/17/21 History cholecalciferol (vitamin D3) 50 50 mcg PO DAILY 12/18/21 12/18/21 12/17/21 History mcg (2,000 unit) tablet clopidogrel 75 mg tablet 75 mg PO DAILY 12/18/21 12/18/21 12/17/21 History loratadine 10 mg tablet 10 mg PO BEDTIME 12/18/21 12/18/21 12/17/21 History metoprolol succinate 25 mg 1 tab PO DAILY 12/18/21 12/18/21 12/17/21 History tablet,extended release 24 hr mirtazapine 30 mg tablet 1 tab PO BEDTIME 12/18/21 12/18/21 12/17/21 History pantoprazole 40 mg tablet,delayed 40 mg PO DAILY 12/18/21 12/18/21 12/17/21 History release thiamine HCl (vitamin B1) 100 mg 100 mg PO DAILY 12/18/21 12/18/21 12/17/21 History tablet tramadol 50 mg tablet 50 mg PO Q12H PRN pain 12/18/21 12/18/21 12/17/21 History Physical Exam Vital Signs: Vital Signs: Last Vital Signs Temp 98.5 F 12/18/21 14:52 Pulse 93 12/18/21 14:52 Resp 20 12/18/21 14:52 BP 159/91 H 12/18/21 14:52 Pulse Ox 94 12/18/21 14:52 O2 Del Method 12/18/21 14:52 O2 Flow Rate 3 12/18/21 14:52 BMI result Body Mass Index 25.3 Const: General: comfortable and no acute distress Orientation/cons ciousness: patient oriented x3 Neck: Neck: Yes no lymphadenopathy Resp: Auscultation: clear to auscultation bilaterally Cardio: Rhythm: regular rhythm GI: Other: no Curiel's sign at this time Palpation (GI): Soft to palpation, nontender and no guarding Neuro: General: patient oriented x3 Results Labs Result diagrams: 12/21/21 05:45 12/21/21 05:45 Labs: Abnormal lab results 12/18/21 12/18/21 12/18/21 Range/Units 11:23 11:23 11:23 WBC 12.3 H (4.8-10.8) X10*3/uL Neut % (Auto) 82.6 H (45-73) % Lymph % (Auto) 8.8 L (20-40) % Lymph # (Auto) 1.1 L (1.2-4.9) X10*3/uL Abs Immat Gran (auto) 0.05 H (0.00-0.03) X10*3/uL Absolute Neuts (auto) 10.2 H (2.0-8.3) x10*3/uL Carbon Dioxide 21 L (22-29) mmol/L BUN 19 H (9-16) mg/dL Creatinine 2.07 H (0.5-1.4) mg/dL Random Glucose 139 H (60-115) mg/dL Troponin I High Sens 131.2 H* (<3.5-35.0) ng/L B-Natriuretic Peptide 1395 H (<100) pg/mL Short CBC 12/18/21 Range/Units 11:23 WBC 12.3 H (4.8-10.8) X10*3/uL Hgb 14.9 (14.0-18.0) g/dl Hct 44.7 (42.0-52.0) % Plt Count 180 (160-400) X10*3/uL BMP 12/18/21 11:23 Sodium 138 Potassium 5.0 D Chloride 107 Carbon Dioxide 21 L BUN 19 H Creatinine 2.07 H Calcium 9.2 Liver Function 12/18/21 Range/Units 11:23 Total Bilirubin 0.8 (0.0-1.0) mg/dL Direct Bilirubin 0.3 (0.0-0.5) mg/dL AST 11 D (5-37) U/L ALT 7 (0-40) U/L Alkaline Phosphatase 78 D (39-117) U/L Albumin 4.3 (3.5-5.0) g/dL Urine 12/18/21 Range/Units 16:01 Urine Color YELLOW Urine Appearance CLEAR Urine pH 5.5 (5.0-8.0) Ur Specific [place] 1.020 (1.005-1.025) Urine Protein NEG (NEG-TRACE) MG/DL Urine Glucose (UA) NEG (NEG) MG/DL All other labs normal. Imaging Additional studies: Laboratory Results WBC 12.3 X10*3/uL (4.8-10.8) H 12/18/21 11:23 RBC 5.30 X10*6/uL (4.60-5.80) 12/18/21 11:23 Hgb 14.9 g/dl (14.0-18.0) 12/18/21 11:23 Hct 44.7 % (42.0-52.0) 12/18/21 11:23 MCV 84.3 fL (80.0-98.0) 12/18/21 11:23 MCH 28.1 pg (27.0-33.0) 12/18/21 11:23 MCHC 33.3 g/dl (31.0-36.0) 12/18/21 11:23 RDW 13.7 % (11.0-16.0) 12/18/21 11:23 Plt Count 180 X10*3/uL (160-400) 12/18/21 11:23 MPV 9.7 fL (9.4-12.4) 12/18/21 11:23 Immature Gran % (Auto) 0.4 % (0.0-0.4) 12/18/21 11:23 Neut % (Auto) 82.6 % (45-73) H 12/18/21 11:23 Lymph % (Auto) 8.8 % (20-40) L 12/18/21 11:23 [place] % (Auto) 7.9 % (2-11) 12/18/21 11:23 Eos % (Auto) 0.1 % (0-4) 12/18/21 11:23 Baso % (Auto) 0.2 % (0-2) 12/18/21 11:23 Lymph # (Auto) 1.1 X10*3/uL (1.2-4.9) L 12/18/21 11:23 [place] # (Auto) 1.0 X10*3/uL (0.1-1.2) 12/18/21 11:23 Eos # (Auto) 0.0 X10*3/uL (0.0-0.4) 12/18/21 11:23 Baso # (Auto) 0.0 X10*3/uL (0.0-0.2) 12/18/21 11:23 Abs Immat Gran (auto) 0.05 X10*3/uL (0.00-0.03) H 12/18/21 11:23 Absolute Neuts (auto) 10.2 x10*3/uL (2.0-8.3) H 12/18/21 11:23 Absolute Nucleated RBC 0.000 X10*3/uL (0.0-0.012) 12/18/21 11: Nucleated RBC % (auto) 0.0 /100WBC (0.0-0.2) 12/18/21 11:23 Sodium 138 mmol/L (135-145) 12/18/21 11:23 Potassium 5.0 mmol/L (3.3-5.1) D 12/18/21 11:23 Chloride 107 mmol/L (96-108) 12/18/21 11:23 Carbon Dioxide 21 mmol/L (22-29) L 12/18/21 11:23 Anion Gap 15 (12-20) 12/18/21 11:23 BUN 19 mg/dL (9-16) H 12/18/21 11:23 Creatinine 2.07 mg/dL (0.5-1.4) H 12/18/21 11:23 Estim Creat Clear Calc 29.4 12/18/21 11:23 Estimated GFR 31 12/18/21 11:23 Random Glucose 139 mg/dL (60-115) H 12/18/21 11:23 Calcium 9.2 mg/dL (8.4-10.2) 12/18/21 11:23 Magnesium 2.2 mg/dL (1.6-2.6) 12/18/21 11:23 Total Bilirubin 0.8 mg/dL (0.0-1.0) 12/18/21 11:23 Direct Bilirubin 0.3 mg/dL (0.0-0.5) 12/18/21 11:23 AST 11 U/L (5-37) D 12/18/21 11:23 ALT 7 U/L (0-40) 12/18/21 11:23 Alkaline Phosphatase 78 U/L (39-117) D 12/18/21 11:23 Troponin I High Sens 131.2 ng/L (<3.5-35.0) H* 12/18/21 11:23 B-Natriuretic Peptide 1395 pg/mL (<100) H 12/18/21 11:23 Total Protein 7.0 g/dL (6.5-8.0) 12/18/21 11:23 Albumin 4.3 g/dL (3.5-5.0) 12/18/21 11:23 Lipase 19 U/L (8-78) 12/18/21 11:23 Urine Color YELLOW 12/18/21 16:01 Urine Appearance CLEAR 12/18/21 16:01 Urine pH 5.5 (5.0-8.0) 12/18/21 16:01 Ur Specific [place] 1.020 (1.005-1.025) 12/18/21 16:01 Urine Protein NEG MG/DL (NEG-TRACE) 12/18/21 16:01 Urine Glucose (UA) NEG MG/DL (NEG) 12/18/21 16:01 Urine Ketones NEG MG/DL (NEG) 12/18/21 16:01 Urine Blood TRACE (NEG) 12/18/21 16:01 Urine Nitrite NEG (NEG) 12/18/21 16:01 Ur Leukocyte Esterase NEG (NEG) 12/18/21 16:01 Urine RBC 1-4 /HPF (0) 12/18/21 16:01 Urine WBC 0 /HPF (0-4) 12/18/21 16:01 Ur Squamous Epith Cells TRACE /LPF 12/18/21 16:01 Urine Bacteria TRACE /LPF 12/18/21 16:01 COVID-19 (TARA) Negative (Negative) 12/18/21 14:07 COVID-19 Clin Com See Note 12/18/21 14:07 Impressions Abdomen/Pelvis CT 12/18/21 12:11 IMPRESSION: 1. Cholelithiasis with mild surrounding pericholecystic fat stranding concerning for acute cholecystitis in the appropriate clinical setting. 2. New dilatation of the common bile duct. If choledocholithiasis is suspected, correlation with MRCP is recommended. 3. Nodularity of the liver contour with hypertrophy of the caudate raising the possibility of hepatocellular disease and cirrhosis. The possibility of portal hypertension is also raised in the setting of splenomegaly. 4. Periportal lymphadenopathy and upper mesenteric haziness, unchanged. 5. Moderate diverticulosis but no evidence to suggest acute diverticulitis. 6. Increased groundglass attenuation and tree-in-bud nodularities in the right middle lobe suggesting an infectious or inflammatory process of the small airways. There is also increased smooth septal thickening suggesting pulmonary edema. Correlate clinically and consider a follow-up chest CT to reassess. Chest X-Ray 12/18/21 14:09 IMPRESSION: Mildly coarsened interstitial markings bilaterally appear similar to the previous study, likely representing mild chronic changes. No definitive acute abnormality. Assessment and Plan (1) Acute cholecystitis: Status: Acute I have reviewed his CT and this shows mild pericholecystic inflammatory changes.HE has gallstones that do not apper to be impacted at the neck. Clinically he does not have Curiel's sign or tenderness. The changes seen on CT may still be related to his chronic liver disease. I would recommend antibiotic tx at this time. He has a very benign exam and does present with perioperative risks with his cirrhosis. His CBD seems dilated but his LFTs are normal. His LFTs should therefore be followed and MRCP may be considered especially if his LFTs become elevated. I will follow along while he is in the hospital. Procedures Date of Service Date of Service: 12/18/21
[2021-12-18 19:16] LABS: Troponin-I High Sensitivity 298.2 ng/L (<3.5-35.0)
[2021-12-18 20:00] VITALS: BP 132/84; PULSE 101; RESP 15; O2SAT 94
[2021-12-18] MEDS: Mirtazapine 30 MG TABLET PO (20:58)
[2021-12-18] MEDS: Loratadine 10 MG TABLET PO (20:58)
--- NOTE | 2021-12-18 21:00 | PC.NURSE ---
pt a&o to person/place, vss, medicated per provider order, pt denies pain at this time.
[2021-12-18 23:47] VITALS: BP 103/76; PULSE 95; RESP 21; O2SAT 96
--- NOTE | 2021-12-19 | ECG_ITS ---
Test Reason : cp Blood Pressure : / mmHG Vent. Rate : 104 BPM Atrial Rate : 104 BPM P-R Int : 440 ms QRS Dur : 114 ms QT Int : 362 ms P-R-T Axes : 015 079 014 degrees QTc Int : 476 ms Sinus tachycardia with 1st degree A-V block Right bundle branch block Nonspecific ST and T wave abnormality Abnormal ECG When compared with ECG of 06-FEB-2020 13:03, Sinus rhythm is no longer with 2nd degree SA block (Mobitz I) Vent. rate has increased BY 37 BPM T wave inversion now evident in Inferior leads T wave inversion now evident in Anterior leads Referred By: Yuliana Cruz Electronically Signed By:MONICA FRIAS
--- NOTE | 2021-12-19 | ECG_ITS ---
Test Reason : rhythm Blood Pressure : / mmHG Vent. Rate : 098 BPM Atrial Rate : 000 BPM P-R Int : 340 ms QRS Dur : 122 ms QT Int : 374 ms P-R-T Axes : 000 057 051 degrees QTc Int : 477 ms Normal sinus rhythm Marked CO prolongation T inversion anterior leads Right bundle branch block Abnormal ECG No significant changes when compared with the previous EKG of 19 december 2021 Referred By: Yuliana Cruz Electronically Signed By:MONICA FRIAS
[2021-12-19] MEDS: Ampicillin Sodium/Sulbactam Na 1.5 GM in 0.9 % Sodium Chloride 100 ML IV ×3 (00:29→17:29)
[2021-12-19] MEDS: Heparin Sodium,Porcine 5,000 UNIT/ML VIAL 5000 UNIT SUBCUT ×2 (00:29→06:14)
[2021-12-19] MEDS: 0.9 % Sodium Chloride Flush 3 ML SYRINGE IVFLUSH ×3 (00:29→16:09)
[2021-12-19 04:16] LABS: Hematocrit 45.8 % (42.0-52.0); Hemoglobin 15.1 g/dl (14.0-18.0); Mean Corpuscular Hemoglobin 28.1 pg (27.0-33.0); Mean Corpuscular Volume 85.1 fL (80.0-98.0); Mean Platelet Volume 10.5 fL (9.4-12.4); Platelet Count 179 X10*3/uL (160-400); Red Blood Count 5.38 X10*6/uL (4.60-5.80); Red Cell Distribution Width 14.3 % (11.0-16.0); White Blood Count 15.6 X10*3/uL (4.8-10.8)
[2021-12-19 04:29] LABS: INTERNATIONAL NORM RATIO 1.1 (0.9-1.1); Prothrombin Time 13.2 SEC (10.0-13.1)
[2021-12-19 04:40] LABS: Alanine Aminotransferase 7 U/L (0-40); Albumin Level 4.4 g/dL (3.5-5.0); Alkaline Phosphatase 78 U/L (39-117); Anion Gap 16 (12-20); Aspartate Amino Transferase 13 U/L (5-37); Bilirubin Direct 0.6 mg/dL (0.0-0.5); Bilirubin Total 1.5 mg/dL (0.0-1.0); Blood Urea Nitrogen 20 mg/dL (9-16); Calcium 9.1 mg/dL (8.4-10.2); Carbon Dioxide 23 mmol/L (22-29); Chloride 107 mmol/L (96-108); Creatinine Clr Calc Pharmacy 29.2; Estimated Glomerular Filt Rate 31; Glucose Fasting 117 mg/dL (60-99); Sodium 141 mmol/L (135-145); Total Protein 7.3 g/dL (6.5-8.0)
[2021-12-19 05:44] VITALS: BP 110/74; PULSE 97; RESP 18; O2SAT 88
--- NOTE | 2021-12-19 07:00 | CA_ITS ---
Transthoracic Echocardiogram Patient (Last, First, Middle): Clifford Ashby A Gender: Male Date of : 1945 Age: 76 Procedure Date: 12/19/2021 Procedure Type: Transthoracic Echocardiogram Location: ER Height: 175.26 cm Weight: 77.57 kg BSA: 1.93 m2 Heart Rate: bpm BP: 110 / 74 mmHg Lens Assistant: MARILY Referring MD: Izaiah Sheikh MD Symptoms: chf Study Quality: Adequate ECG Rhythm: Undetermined Conclusions: - The left ventricular systolic function is mildly decreased. The calculated ejection fraction is 46% by biplane method. - The apical inferior, mid anterior, apical septum, and mid anterolateral segments are hypokinetic. - There is mild calcification of the aortic valve. - There is mild mitral annular calcification. Findings Left Ventricle Normal left ventricular cavity size. There is mildly increased left ventricular wall thickness. The left ventricular systolic function is mildly decreased. The calculated ejection fraction is 46% by biplane method. There is evidence of regional wall motion abnormalities. Diastolic function is normal for age. LV peak GLS -8.1%. Wall Motion Rest Echo Findings The apical inferior, mid anterior, apical septum, and mid anterolateral segments are hypokinetic. Right Ventricle Normal right ventricular cavity size. There is mildly decreased right ventricular systolic function. Atria Both atria are normal in size. Aortic Valve There is a normal trileaflet aortic valve. There is mild calcification of the aortic valve. There is no aortic valve stenosis. There is trace (trivial) aortic valve regurgitation. Mitral Valve There is mild mitral annular calcification. There is no mitral valve regurgitation. There is no mitral valve stenosis. Pulmonic Valve The pulmonic valve is likely normal. Tricuspid Valve Normal tricuspid valve structure. There is trace tricuspid valve regurgitation. The pulmonary artery systolic pressure is normal. Great Vessels The aortic annulus, sinuses of valsalva, and asc aorta are normal in size. Venous The inferior vena cava is normal in size and collapses greater than 50% with inspiration. Pericardium/Pleural There is no evidence of pericardial effusion. Prior Study Comparison Changes noted compared to prior study dated: 03/02/2020. Wall motion abnormality not previously described. Measurements 2D Linear Measurements IVSd: 1.17 0.6-0.9/0.6-1.0 cm LVIDd: 4.61 3.9-5.3/4.2-5.9 cm LVIDd Index: 2.39 2.4-3.2/2.2-3.1 cm/m2 LVIDs: 3.41 2.0-3.6 cm LVPWd: 1.01 0.7-1.1 cm LA Diam: 4.10 2.7-3.8/3.0-4.0 cm LAIDs Index: 2.12 1.5-2.3 cm/m2 LV Mass: 223.68 67-162/88-224 g LV Mass Index: 115.90 43-95/49-115 g/m2 LVOT Diam: 2.00 3.0+(-)1.3 cm 2D Systolic Function EF 4C: 50.90 >55% EF 2C: 38.80 >55% EF BiP: 46.40 >55% Mitral Valve MV Pk E: 0.94 MV Decel Time: 190.00 E'Lateral: 16.50 E'Medial: 11.40 E/E' Med: 8.20 E/E' Lat: 5.70 PHT: 56.00 MVA PHT: 3.93 Decel Taylor: 4.93 Aortic Valve AoV Pk Nixon: 0.97 AoV Mn Nixon: 0.75 AoV VTI: 0.17 AoV Pk Grad: 4.00 Aov Mn Grad: 2.00 FE Cont.VTI: 2.11 LVOT LVOT Pk Nixon: 0.67 LVOT Mn Nixon: 0.46 LVOT VTI: 0.11 LVOT Pk Grad: 2.00 LVOT Mn Grad: 1.00 LVOT Diam: 2.00 LVOT Area: 3.14 Diastolic Function MV Pk E: 0.94 E'Medial: 11.40 E/E' Med: 8.20 E' Laterial: 16.50 E/E' Lat: 5.70 Right Ventricle TAPSE (mm): 13.90 TVS' Nixon: 9.03 Tricuspid Valve TR Pk Nixon: 2.59 TR Pk Grad: 27.00 RA Press: 3.00 RVSP: 30.00 Great Vessels Aorta Sinus of Valsalva: 3.63 2.0-3.[address] Ridge: 2.64 1.7-3.4 cm Ao Asc: 3.10 2.1-3.4 cm Updated in Other Vendor System with Status of Final Nnamdi Nelson MD electronically signed on 12/19/2021 4:13:44 PM with status of Final
--- NOTE | 2021-12-19 10:00 | MHC.CM.PN ---
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 CM has initiated and will follow for dc planning. IMM addressed with Daughter/Anastasia @ [phone] and original will be mailed certified letter to her and a copy to be placed on the chart. PCP is DR. Jamison Winn.
--- NOTE | 2021-12-19 10:01 | HO.PM.IMPN ---
Subjective Subjective Date of Service: 12/19/21 Interval History: cc: abd pain interval history:ongoing abd pain, denies sob despite hypoxia or chest pain Cardiovascular Cardiovascular: Reports no additional cardiovascular complaints Respiratory Respiratory: Reports no additional respiratory complaints Physical Exam Vital Signs: Vital Signs: Last Vital Signs Temp 98.5 F 12/18/21 14:52 Pulse 97 12/19/21 05:44 Resp 18 12/19/21 05:44 BP 110/74 12/19/21 05:44 Pulse Ox 88 L 12/19/21 05:44 O2 Del Method 12/19/21 05:44 O2 Flow Rate 3 12/18/21 23:47 BMI result Body Mass Index 25.3 General: AO X 1, no acute distress Resp: diminished bilateral, no accessory muscles used CVS: S1,S2,RRR GI: soft, midlly tender, non distended Neuro: motor grossly intact, alert Psych: appropriate affect, impaired insight Objective Data Active Medications Acetaminophen (Acetaminophen 325 Mg Tablet) 650 mg PO Q6H PRN PRN Reason: Pain, Mild (Pain Scale 1-3) Allopurinol (Allopurinol 100 Mg Tablet) 50 mg PO Q2D [facility] Last Admin: 12/18/21 16:16 Dose: 50 mg Documented By: TOMAS Aspirin (Aspirin 81 Mg Tab.Chew) 81 mg PO DAILY [facility] Clopidogrel Bisulfate (Clopidogrel Bisulfate 75 Mg Tablet) 75 mg PO DAILY [facility] Furosemide (Furosemide 40 Mg/4 Ml Vial) 40 mg IVPUSH BID@0900,1800 [facility]; Protocol Last Admin: 12/18/21 18:26 Dose: Not Given Documented By: ELI Non-Admin Reason: Physician Held Med Comments: hold per Dr Sheikh, last dose 3pm. Heparin Sodium (Porcine) (Heparin Sodium,Porcine 5,000 Unit/Ml Vial) 5,000 unit SUBCUT Q8H [facility] Last Admin: 12/19/21 06:14 Dose: 5,000 unit Documented By: LATHA Ampicillin Sodium/Sulbactam (Sodium 1.5 gm/ Sodium Chloride) 100 mls @ 200 mls/hr IV Q8H [facility] Last Admin: 12/19/21 06:13 Dose: 200 mls/hr Documented By: ALTHA Loratadine (Loratadine 10 Mg Tablet) 10 mg PO BEDTIME [facility] Last Admin: 12/18/21 20:58 Dose: 10 mg Documented By: TOMAS Mirtazapine (Mirtazapine 30 Mg Tablet) 30 mg PO BEDTIME [facility] Last Admin: 12/18/21 20:58 Dose: 30 mg Documented By: TOMAS Omeprazole (Omeprazole 20 Mg Capsule.Dr) 20 mg PO DAILY [facility] Pharmacy Consult (Consult Rx Perform Med Rec) 1 each MISCELLANE ONCE PRN PRN Reason: Consult order Sodium Chloride (0.9 % Sodium Chloride Flush 3 Ml Syringe) 3 ml IVFLUSH QSHIFT [facility] Last Admin: 12/19/21 00:29 Dose: 3 ml Documented By: TOMAS Thiamine HCl (Thiamine Hcl 100 Mg Tablet) 100 mg PO DAILY [facility] Vitamin D (Cholecalciferol (Vitamin D3) 25 Mcg Tablet) 50 mcg PO DAILY [facility] Labs CBC & Chem 7: 12/19/21 03:41 12/19/21 03:41 Labs: Laboratory Results - last 24 hr 12/18/21 12/18/21 12/18/21 11:23 11:23 11:23 MCV 84.3 MCH 28.1 MCHC 33.3 RDW 13.7 Plt Count 180 MPV 9.7 Immature Gran % (Auto) 0.4 Neut % (Auto) 82.6 H Lymph % (Auto) 8.8 L [place] % (Auto) 7.9 Eos % (Auto) 0.1 Baso % (Auto) 0.2 Lymph # (Auto) 1.1 L [place] # (Auto) 1.0 Eos # (Auto) 0.0 Baso # (Auto) 0.0 Abs Immat Gran (auto) 0.05 H Absolute Neuts (auto) 10.2 H Absolute Nucleated RBC 0.000 Nucleated RBC % (auto) 0.0 PT INR Anion Gap 15 Estim Creat Clear Calc 29.4 Estimated GFR 31 Random Glucose 139 H Fasting Glucose Calcium 9.2 Magnesium 2.2 Total Bilirubin 0.8 Direct Bilirubin 0.3 AST 11 D ALT 7 Alkaline Phosphatase 78 D Troponin I High Sens 131.2 H* B-Natriuretic Peptide 1395 H Total Protein 7.0 Albumin 4.3 Lipase 19 Urine Color Urine Appearance Urine pH Ur Specific [place] Urine Protein Urine Glucose (UA) Urine Ketones Urine Blood Urine Nitrite Ur Leukocyte Esterase Urine RBC Urine WBC Ur Squamous Epith Cells Urine Bacteria COVID-19 ([facility]) COVID-19 Clin Com 07/25/22 07/25/22 07/25/22 14:07 16:01 18:12 MCV MCH MCHC RDW Plt Count MPV Immature Gran % (Auto) Neut % (Auto) Lymph % (Auto) [place] % (Auto) Eos % (Auto) Baso % (Auto) Lymph # (Auto) [place] # (Auto) Eos # (Auto) Baso # (Auto) Abs Immat Gran (auto) Absolute Neuts (auto) Absolute Nucleated RBC Nucleated RBC % (auto) PT INR Anion Gap Estim Creat Clear Calc Estimated GFR Random Glucose Fasting Glucose Calcium Magnesium Total Bilirubin Direct Bilirubin AST ALT Alkaline Phosphatase Troponin I High Sens 298.2 H* D B-Natriuretic Peptide Total Protein Albumin Lipase Urine Color YELLOW Urine Appearance CLEAR Urine pH 5.5 Ur Specific [place] 1.020 Urine Protein NEG Urine Glucose (UA) NEG Urine Ketones NEG Urine Blood TRACE Urine Nitrite NEG Ur Leukocyte Esterase NEG Urine RBC 1-4 Urine WBC 0 Ur Squamous Epith Cells TRACE Urine Bacteria TRACE COVID-19 ([facility]) Negative COVID-19 Clin Com See Note 12/19/21 12/19/21 12/19/21 03:41 03:41 03:41 MCV 85.1 MCH 28.1 MCHC 33.0 RDW 14.3 Plt Count 179 MPV 10.5 Immature Gran % (Auto) Neut % (Auto) Lymph % (Auto) [place] % (Auto) Eos % (Auto) Baso % (Auto) Lymph # (Auto) [place] # (Auto) Eos # (Auto) Baso # (Auto) Abs Immat Gran (auto) Absolute Neuts (auto) Absolute Nucleated RBC 0.000 Nucleated RBC % (auto) 0.0 PT 13.2 H INR 1.1 Anion Gap 16 Estim Creat Clear Calc 29.2 Estimated GFR 31 Random Glucose Fasting Glucose 117 H Calcium 9.1 Magnesium 2.0 Total Bilirubin 1.5 H Direct Bilirubin 0.6 H AST 13 ALT 7 Alkaline Phosphatase 78 Troponin I High Sens B-Natriuretic Peptide Total Protein 7.3 Albumin 4.4 Lipase Urine Color Urine Appearance Urine pH Ur Specific [place] Urine Protein Urine Glucose (UA) Urine Ketones Urine Blood Urine Nitrite Ur Leukocyte Esterase Urine RBC Urine WBC Ur Squamous Epith Cells Urine Bacteria COVID-19 ([facility]) COVID-19 Clin Com Assessment and Plan (1) Acute cholecystitis: Status: Acute Plan 76M presented with abdominal pain, found to have acute cholecystitis, elevated troponin, chf, suspect aspiratoin pneumonia acute cholecystitis continue unasyn, cultures, surgery appreciated, monitor lfts - tbili increasing will get MRCP as cbd dilated on ct aspiration pneumonia vs pnuemonitis complicated by acute hypoxic respiratory failure unasyn acute chf unspecified iv lasix, monitor electrolytes, echo elevated troponin no chest pain, ?type II nstemi cardio eval ETOH cirrhosis sober 5 years, appears compensated ? 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
[2021-12-19] MEDS: Cholecalciferol (Vitamin D3) 25 MCG TABLET 50 MCG PO (10:19)
[2021-12-19] MEDS: Clopidogrel Bisulfate 75 MG TABLET PO (10:20)
[2021-12-19] MEDS: Omeprazole 20 MG CAPSULE.DR PO (10:20)
[2021-12-19] MEDS: Aspirin 81 MG TAB.CHEW PO (10:20)
[2021-12-19] MEDS: Thiamine HCL 100 MG TABLET PO (10:20)
[2021-12-19] MEDS: Furosemide 40 MG/4 ML VIAL IVPUSH ×2 (10:20→16:09)
[2021-12-19 10:26] VITALS: BP 117/78; PULSE 104; RESP 20; O2SAT 98
--- NOTE | 2021-12-19 10:34 | PM.CNCAR ---
History of Present Illness History of Present Illness Date of Service: 12/19/21 Chief complaint: chf, cholecystitis Narrative: This is a cardiology consultation regarding elevated troponins. Patient has been admitted for abdominal pain and concern for cholecystitis. He apparently had diffuse abdominal pain for 2 days accompanied by nausea vomiting. However from the cardiac standpoint does not have any angina or in fact any cardiac symptoms whatsoever. CT abdomen was thought to have acute cholecystitis. He did have some elevated troponins and hence we have been asked to see him. Patient denies any history of cardiac issues like coronary disease or myocardial infarction. He also denies any cardiac symptoms at this time like angina. States he is generally feeling okay. Review of Systems Review of Systems: Yes all other systems are reviewed and are negative Constitutional: Constitutional: Reports as per HPI Eyes: Eyes: Reports as per HPI ENT: Reports as per HPI Cardiovascular: Cardiovascular: Reports as per HPI, Denies acrocyanosis, Denies cool extremities, Denies chest pain, Denies leg edema, Denies lightheadedness, Denies palpitations and Denies dyspnea Respiratory: Respiratory: Reports as per HPI, Reports no additional respiratory complaints and Denies dyspnea Gastrointestinal: Gastrointestinal: Reports as per HPI, Reports no additional gastrointestinal complaints and Reports abdominal pain Genitourinary: Genitourinary: Reports no additional male genitourinary complaints and Reports as per HPI Musculoskeletal: Musculoskeletal: Reports no additional musculoskeletal complaints and Reports as per HPI Integumentary/Breasts: Skin/Breast: Reports system reviewed and no additional complaints, except as docu Neurologic: Reports system reviewed and no additional complaints, except as documented and Reports as per HPI Psychiatric: Psychiatric: Reports no additional psychiatric complaints and Reports as per HPI Endocrine: Endocrine: Reports no additional endocrine complaints, Reports as per HPI and Denies palpitations Hematologic/Lymphatic: Hematologic/Lymphatic: Reports no additional hematologic/lymphatic complaints and Reports as per HPI Allergic/Immunologic: Allergic/Immunologic: Reports no additional allergic/immunologic complaints and Reports as per HPI PMF Past Medical History Medical History Hoffman esophagus Cirrhosis of liver Dementia Diverticulitis Malignant neoplasm of prostate Family History Family History Father CAD (coronary artery disease) Surgical History Surgical History H/O radical prostatectomy Social History Social History Alcohol intake: former Advance Directives: No Advance Directives Information Provided: Yes Advance Directives Date on File: 08/09/20 service: Yes Current occupational status: retired Meds Allergies Allergy/AdvReac Type Severity Reaction Status Date / Time lisinopril [LISINOPRIL] Allergy Mild UNKNOWN Unverified 02/11/20 19:45 baclofen [BACLOFEN] Allergy Unknown UNKNOWN Unverified 02/11/20 19:45 shellfish derived Allergy Unknown UNKNOWN Unverified 02/11/20 19:45 [SHELLFISH DERIVED] Active Medications: Current Medications Acetaminophen (Acetaminophen 325 Mg Tablet) 650 mg PO Q6H PRN PRN Reason: Pain, Mild (Pain Scale 1-3) Allopurinol (Allopurinol 100 Mg Tablet) 50 mg PO Q2D [facility] Last Admin: 12/18/21 16:16 Dose: 50 mg Aspirin (Aspirin 81 Mg Tab.Chew) 81 mg PO DAILY [facility] Last Admin: 12/19/21 10:20 Dose: 81 mg Clopidogrel Bisulfate (Clopidogrel Bisulfate 75 Mg Tablet) 75 mg PO DAILY [facility] Last Admin: 12/19/21 10:20 Dose: 75 mg Furosemide (Furosemide 40 Mg/4 Ml Vial) 40 mg IVPUSH BID@0900,1800 [facility]; Protocol Last Admin: 12/19/21 10:20 Dose: 40 mg Heparin Sodium (Porcine) (Heparin Sodium,Porcine 5,000 Unit/Ml Vial) 5,000 unit SUBCUT Q8H [facility] Last Admin: 12/19/21 06:14 Dose: 5,000 unit Ampicillin Sodium/Sulbactam (Sodium 1.5 gm/ Sodium Chloride) 100 mls @ 200 mls/hr IV Q8H [facility] Last Infusion: 12/19/21 10:23 Dose: Infused Loratadine (Loratadine 10 Mg Tablet) 10 mg PO BEDTIME [facility] Last Admin: 12/18/21 20:58 Dose: 10 mg Mirtazapine (Mirtazapine 30 Mg Tablet) 30 mg PO BEDTIME [facility] Last Admin: 12/18/21 20:58 Dose: 30 mg Omeprazole (Omeprazole 20 Mg Capsule.Dr) 20 mg PO DAILY [facility] Last Admin: 12/19/21 10:20 Dose: 20 mg Pharmacy Consult (Consult Rx Perform Med Rec) 1 each MISCELLANE ONCE PRN PRN Reason: Consult order Sodium Chloride (0.9 % Sodium Chloride Flush 3 Ml Syringe) 3 ml IVFLUSH QSHIFT [facility] Last Admin: 12/19/21 10:20 Dose: 3 ml Thiamine HCl (Thiamine Hcl 100 Mg Tablet) 100 mg PO DAILY [facility] Last Admin: 12/19/21 10:20 Dose: 100 mg Vitamin D (Cholecalciferol (Vitamin D3) 25 Mcg Tablet) 50 mcg PO DAILY [facility] Last Admin: 12/19/21 10:19 Dose: 50 mcg Home Medications Medication Instructions Recorded Confirmed Last Taken Type allopurinol 100 mg tablet 50 mg PO Q2D 12/18/21 12/18/21 12/16/21 History aspirin 81 mg chewable tablet 81 mg PO DAILY 12/18/21 12/18/21 12/17/21 History cholecalciferol (vitamin D3) 50 50 mcg PO DAILY 12/18/21 12/18/21 12/17/21 History mcg (2,000 unit) tablet clopidogrel 75 mg tablet 75 mg PO DAILY 12/18/21 12/18/21 12/17/21 History loratadine 10 mg tablet 10 mg PO BEDTIME 12/18/21 12/18/21 12/17/21 History metoprolol succinate 25 mg 1 tab PO DAILY 12/18/21 12/18/21 12/17/21 History tablet,extended release 24 hr mirtazapine 30 mg tablet 1 tab PO BEDTIME 12/18/21 12/18/21 12/17/21 History pantoprazole 40 mg tablet,delayed 40 mg PO DAILY 12/18/21 12/18/21 12/17/21 History release thiamine HCl (vitamin B1) 100 mg 100 mg PO DAILY 12/18/21 12/18/21 12/17/21 History tablet tramadol 50 mg tablet 50 mg PO Q12H PRN pain 12/18/21 12/18/21 12/17/21 History Physical Exam Vital Signs: Vital Signs: Last Vital Signs Temp 98.5 F 12/18/21 14:52 Pulse 104 H 12/19/21 10:26 Resp 20 12/19/21 10:26 BP 117/78 12/19/21 10:26 Pulse Ox 98 12/19/21 10:26 O2 Del Method 12/19/21 10:26 O2 Flow Rate 4 12/19/21 10:26 BMI result Body Mass Index 25.3 Const: General: comfortable and no acute distress Orientation/consciousness: patient oriented x3 HEENT: Other: Unremarkable Head: Yes normal to inspection Neck: Neck: Yes normal visual inspection Chest: Chest palpation & inspection: normal inspection of the chest Resp: Auscultation: clear to auscultation bilaterally Cardio: Palpation: normal PMI Heart sounds: S1 normal heart sound present, S2 normal heart sound present, no gallops, no murmurs and no rubs GI: Palpation (GI): Soft to palpation Back/Spine/Pelvis: Other: unremarkable Skin: General skin exam: no rashes or lesions noted Neuro: General: patient oriented x3 Extrem: General: Yes normal to inspection Psych: Mental Status: mental status grossly normal Objective Labs and Meds Result diagrams: 12/19/21 03:41 12/19/21 03:41 Lab results: Laboratory Results - last 24 hr 12/18/21 12/18/21 12/18/21 11:23 11:23 11:23 WBC 12.3 H RBC 5.30 Hgb 14.9 Hct 44.7 MCV 84.3 MCH 28.1 MCHC 33.3 RDW 13.7 Plt Count 180 MPV 9.7 Immature Gran % (Auto) 0.4 Neut % (Auto) 82.6 H Lymph % (Auto) 8.8 L [place] % (Auto) 7.9 Eos % (Auto) 0.1 Baso % (Auto) 0.2 Lymph # (Auto) 1.1 L [place] # (Auto) 1.0 Eos # (Auto) 0.0 Baso # (Auto) 0.0 Abs Immat Gran (auto) 0.05 H Absolute Neuts (auto) 10.2 H Absolute Nucleated RBC 0.000 Nucleated RBC % (auto) 0.0 PT INR Sodium 138 Potassium 5.0 D Chloride 107 Carbon Dioxide 21 L Anion Gap 15 BUN 19 H Creatinine 2.07 H Estim Creat Clear Calc 29.4 Estimated GFR 31 Random Glucose 139 H Fasting Glucose Calcium 9.2 Magnesium 2.2 Total Bilirubin 0.8 Direct Bilirubin 0.3 AST 11 D ALT 7 Alkaline Phosphatase 78 D Troponin I High Sens 131.2 H* B-Natriuretic Peptide 1395 H Total Protein 7.0 Albumin 4.3 Lipase 19 Urine Color Urine Appearance Urine pH Ur Specific [place] Urine Protein Urine Glucose (UA) Urine Ketones Urine Blood Urine Nitrite Ur Leukocyte Esterase Urine RBC Urine WBC Ur Squamous Epith Cells Urine Bacteria COVID-19 ([facility]) COVID-19 Clin Com 12/18/21 12/18/21 12/18/21 14:07 16:01 18:12 WBC RBC Hgb Hct MCV MCH MCHC RDW Plt Count MPV Immature Gran % (Auto) Neut % (Auto) Lymph % (Auto) [place] % (Auto) Eos % (Auto) Baso % (Auto) Lymph # (Auto) [place] # (Auto) Eos # (Auto) Baso # (Auto) Abs Immat Gran (auto) Absolute Neuts (auto) Absolute Nucleated RBC Nucleated RBC % (auto) PT INR Sodium Potassium Chloride Carbon Dioxide Anion Gap BUN Creatinine Estim Creat Clear Calc Estimated GFR Random Glucose Fasting Glucose Calcium Magnesium Total Bilirubin Direct Bilirubin AST ALT Alkaline Phosphatase Troponin I High Sens 298.2 H* D B-Natriuretic Peptide Total Protein Albumin Lipase Urine Color YELLOW Urine Appearance CLEAR Urine pH 5.5 Ur Specific [place] 1.020 Urine Protein NEG Urine Glucose (UA) NEG Urine Ketones NEG Urine Blood TRACE Urine Nitrite NEG Ur Leukocyte Esterase NEG Urine RBC 1-4 Urine WBC 0 Ur Squamous Epith Cells TRACE Urine Bacteria TRACE COVID-19 ([facility]) Negative COVID-19 Clin Com See Note 12/19/21 12/19/21 12/19/21 03:41 03:41 03:41 WBC 15.6 H RBC 5.38 Hgb 15.1 Hct 45.8 MCV 85.1 MCH 28.1 MCHC 33.0 RDW 14.3 Plt Count 179 MPV 10.5 Immature Gran % (Auto) Neut % (Auto) Lymph % (Auto) [place] % (Auto) Eos % (Auto) Baso % (Auto) Lymph # (Auto) [place] # (Auto) Eos # (Auto) Baso # (Auto) Abs Immat Gran (auto) Absolute Neuts (auto) Absolute Nucleated RBC 0.000 Nucleated RBC % (auto) 0.0 PT 13.2 H INR 1.1 Sodium 141 Potassium 5.0 Chloride 107 Carbon Dioxide 23 Anion Gap 16 BUN 20 H Creatinine 2.08 H Estim Creat Clear Calc 29.2 Estimated GFR 31 Random Glucose Fasting Glucose 117 H Calcium 9.1 Magnesium 2.0 Total Bilirubin 1.5 H Direct Bilirubin 0.6 H AST 13 ALT 7 Alkaline Phosphatase 78 Troponin I High Sens B-Natriuretic Peptide Total Protein 7.3 Albumin 4.4 Lipase Urine Color Urine Appearance Urine pH Ur Specific [place] Urine Protein Urine Glucose (UA) Urine Ketones Urine Blood Urine Nitrite Ur Leukocyte Esterase Urine RBC Urine WBC Ur Squamous Epith Cells Urine Bacteria COVID-19 ([facility]) COVID-19 Clin Com Imaging Radiologist's impression: Impressions Abdomen/Pelvis CT 12/18/21 12:11 IMPRESSION: 1. Cholelithiasis with mild surrounding pericholecystic fat stranding concerning for acute cholecystitis in the appropriate clinical setting. 2. New dilatation of the common bile duct. If choledocholithiasis is suspected, correlation with MRCP is recommended. 3. Nodularity of the liver contour with hypertrophy of the caudate raising the possibility of hepatocellular disease and cirrhosis. The possibility of portal hypertension is also raised in the setting of splenomegaly. 4. Periportal lymphadenopathy and upper mesenteric haziness, unchanged. 5. Moderate diverticulosis but no evidence to suggest acute diverticulitis. 6. Increased groundglass attenuation and tree-in-bud nodularities in the right middle lobe suggesting an infectious or inflammatory process of the small airways. There is also increased smooth septal thickening suggesting pulmonary edema. Correlate clinically and consider a follow-up chest CT to reassess. Chest X-Ray 12/18/21 14:09 IMPRESSION: Mildly coarsened interstitial markings bilaterally appear similar to the previous study, likely representing mild chronic changes. No definitive acute abnormality. Assessment and Plan (1) NSTEMI (non-ST elevated myocardial infarction): Status: Acute Plan Unable to locate EKG in expanse. Requested hospitalist to obtain EKG. With regard to high sensitivity troponins, 131 followed by 298. In the past, levels were completely normal. Echocardiogram being completed and need to be reviewed. Abdomen/pelvis CT scan reviewed. Suggestive of cirrhosis/portal hypertension. Overall, probably demand related NSTEMI. If no medical contraindications, then IV heparin 48 hours. He seems to be on both aspirin and Plavix at baseline. Will need to be re-evaluated. For with liver disease, may not be able tolerate statins. Will review after EKG/Echo. Discussed with Dr. Sheikh. Procedures Date of Service Date of Service: 12/19/21
[2021-12-19 11:44] LABS: INTERNATIONAL NORM RATIO 1.2 (0.9-1.1); Prothrombin Time 13.8 SEC (10.0-13.1)
[2021-12-19 11:47] LABS: Hematocrit 42.6 % (42.0-52.0); Hemoglobin 14.2 g/dl (14.0-18.0); Mean Corpuscular HGB Conc 33.3 g/dl (31.0-36.0); Mean Corpuscular Hemoglobin 28.5 pg (27.0-33.0); Mean Corpuscular Volume 85.5 fL (80.0-98.0); Mean Platelet Volume 10.1 fL (9.4-12.4); PTT Heparin Drip 35.1 SEC (53-77.9); Platelet Count 150 X10*3/uL (160-400); Red Blood Count 4.98 X10*6/uL (4.60-5.80); Red Cell Distribution Width 14.2 % (11.0-16.0); White Blood Count 14.8 X10*3/uL (4.8-10.8)
--- NOTE | 2021-12-19 12:34 | PC.NURSE ---
Heparin started late due to patient being in MRI
[2021-12-19] MEDS: Heparin Sodium,Porcine/1/2NS 25,000 UNIT/250 ML IV.SOLN 9.29 UNIT IVCONT (13:21)
[2021-12-19 14:00] VITALS: BP 140/75; PULSE 100; RESP 18; O2SAT 95
--- NOTE | 2021-12-19 16:04 | PM.PNGS ---
Subjective Subjective Date of Service: 12/19/21 Interval history: Denies abdominal pain Asking to be discharged Says he feels well Physical Exam Vital Signs: Vital Signs: Last Vital Signs Temp 98.5 F 12/18/21 14:52 Pulse 100 12/19/21 14:00 Resp 18 12/19/21 14:00 BP 140/75 H 12/19/21 14:00 Pulse Ox 95 12/19/21 14:00 O2 Del Method 12/19/21 14:00 O2 Flow Rate 4 12/19/21 14:00 BMI result Body Mass Index 25.3 Const: General: comfortable and no acute distress Eyes: Sclerae: sclerae normal Resp: Effort & Inspection: normal respiratory effort GI: Other: Soft, no tenderness, no Curiel's sign, no guarding or rebound, not distended Objective Data Active Medications Acetaminophen (Acetaminophen 325 Mg Tablet) 650 mg PO Q6H PRN PRN Reason: Pain, Mild (Pain Scale 1-3) Allopurinol (Allopurinol 100 Mg Tablet) 50 mg PO Q2D [facility] Last Admin: 12/18/21 16:16 Dose: 50 mg Documented By: TOMAS Aspirin (Aspirin 81 Mg Tab.Chew) 81 mg PO DAILY [facility] Last Admin: 12/19/21 10:20 Dose: 81 mg Documented By: ALYIN Clopidogrel Bisulfate (Clopidogrel Bisulfate 75 Mg Tablet) 75 mg PO DAILY [facility] Last Admin: 12/19/21 10:20 Dose: 75 mg Documented By: AYLIN Furosemide (Furosemide 40 Mg/4 Ml Vial) 40 mg IVPUSH BID@0900,1800 [facility]; Protocol Last Admin: 12/19/21 10:20 Dose: 40 mg Documented By: AYLIN Heparin Sodium (Porcine) (Heparin Sodium,Porcine 5,000 Unit/Ml Vial) 3,100 unit 40 unit/kg (3100 unit) IVPUSH PROTOCOL BOLUS PRN; Protocol PRN Reason: 40 unit/kg - Heparin Protocol Heparin Sodium (Porcine) (Heparin Sodium,Porcine 5,000 Unit/Ml Vial) 6,200 unit 80 unit/kg (6200 unit) IVPUSH PROTOCOL BOLUS PRN; Protocol PRN Reason: 80 unit/kg - Heparin Protocol Ampicillin Sodium/Sulbactam (Sodium 1.5 gm/ Sodium Chloride) 100 mls @ 200 mls/hr IV Q8H [facility] Last Infusion: 12/19/21 10:23 Dose: 0 mls/hr Documented By: AYLIN Heparin Sodium/Sodium Chloride () 25,000 unit in 250 mls @ 0 mls/hr IVCONT .Q0M [facility]; Protocol Last Admin: 12/19/21 13:21 Dose: 12 units/kg/hr, 9.29 mls/hr Documented By: XENIA Co-signed By: AYLIN Loratadine (Loratadine 10 Mg Tablet) 10 mg PO BEDTIME [facility] Last Admin: 12/18/21 20:58 Dose: 10 mg Documented By: TOMAS Mirtazapine (Mirtazapine 30 Mg Tablet) 30 mg PO BEDTIME [facility] Last Admin: 12/18/21 20:58 Dose: 30 mg Documented By: TOMAS Omeprazole (Omeprazole 20 Mg Capsule.Dr) 20 mg PO DAILY [facility] Last Admin: 12/19/21 10:20 Dose: 20 mg Documented By: AYLIN Pharmacy Consult (Consult Rx Perform Med Rec) 1 each MISCELLANE ONCE PRN PRN Reason: Consult order Sodium Chloride (0.9 % Sodium Chloride Flush 3 Ml Syringe) 3 ml IVFLUSH QSHIFT [facility] Last Admin: 12/19/21 10:20 Dose: 3 ml Documented By: AYLIN Thiamine HCl (Thiamine Hcl 100 Mg Tablet) 100 mg PO DAILY [facility] Last Admin: 12/19/21 10:20 Dose: 100 mg Documented By: AYLIN Vitamin D (Cholecalciferol (Vitamin D3) 25 Mcg Tablet) 50 mcg PO DAILY [facility] Last Admin: 12/19/21 10:19 Dose: 50 mcg Documented By: AYLIN Labs CBC & Chem 7: 12/19/21 11:30 12/19/21 03:41 Labs: Laboratory Results - last 24 hr 12/18/21 12/19/21 12/19/21 16:01 03:41 03:41 MCV 85.1 MCH 28.1 MCHC 33.0 RDW 14.3 Plt Count 179 MPV 10.5 Absolute Nucleated RBC 0.000 Nucleated RBC % (auto) 0.0 PT INR aPTT Heparin Protocol Anion Gap 16 Estim Creat Clear Calc 29.2 Estimated GFR 31 Fasting Glucose 117 H Calcium 9.1 Magnesium 2.0 Total Bilirubin 1.5 H Direct Bilirubin 0.6 H AST 13 ALT 7 Alkaline Phosphatase 78 Total Protein 7.3 Albumin 4.4 Urine Color YELLOW Urine Appearance CLEAR Urine pH 5.5 Ur Specific [place] 1.020 Urine Protein NEG Urine Glucose (UA) NEG Urine Ketones NEG Urine Blood TRACE Urine Nitrite NEG Ur Leukocyte Esterase NEG Urine RBC 1-4 Urine WBC 0 Ur Squamous Epith Cells TRACE Urine Bacteria TRACE 12/19/21 12/19/21 12/19/21 03:41 11:30 11:30 MCV 85.5 MCH 28.5 MCHC 33.3 RDW 14.2 Plt Count 150 L MPV 10.1 Absolute Nucleated RBC 0.000 Nucleated RBC % (auto) 0.0 PT 13.2 H 13.8 H INR 1.1 1.2 H aPTT Heparin Protocol 35.1 L Anion Gap Estim Creat Clear Calc Estimated GFR Fasting Glucose Calcium Magnesium Total Bilirubin Direct Bilirubin AST ALT Alkaline Phosphatase Total Protein Albumin Urine Color Urine Appearance Urine pH Ur Specific [place] Urine Protein Urine Glucose (UA) Urine Ketones Urine Blood Urine Nitrite Ur Leukocyte Esterase Urine RBC Urine WBC Ur Squamous Epith Cells Urine Bacteria Laboratory Results WBC 14.8 X10*3/uL (4.8-10.8) H 12/19/21 11:30 RBC 4.98 X10*6/uL (4.60-5.80) 12/19/21 11:30 Hgb 14.2 g/dl (14.0-18.0) 12/19/21 11:30 Hct 42.6 % (42.0-52.0) 12/19/21 11:30 MCV 85.5 fL (80.0-98.0) 12/19/21 11:30 MCH 28.5 pg (27.0-33.0) 12/19/21 11:30 MCHC 33.3 g/dl (31.0-36.0) 12/19/21 11:30 RDW 14.2 % (11.0-16.0) 12/19/21 11:30 Plt Count 150 X10*3/uL (160-400) L 12/19/21 11:30 MPV 10.1 fL (9.4-12.4) 12/19/21 11:30 Immature Gran % (Auto) 0.4 % (0.0-0.4) 12/18/21 11:23 Neut % (Auto) 82.6 % (45-73) H 12/18/21 11:23 Lymph % (Auto) 8.8 % (20-40) L 12/18/21 11:23 Boyd % (Auto) 7.9 % (2-11) 12/18/21 11:23 Eos % (Auto) 0.1 % (0-4) 12/18/21 11:23 Baso % (Auto) 0.2 % (0-2) 12/18/21 11:23 Lymph # (Auto) 1.1 X10*3/uL (1.2-4.9) L 12/18/21 11:23 Boyd # (Auto) 1.0 X10*3/uL (0.1-1.2) 12/18/21 11:23 Eos # (Auto) 0.0 X10*3/uL (0.0-0.4) 12/18/21 11:23 Baso # (Auto) 0.0 X10*3/uL (0.0-0.2) 12/18/21 11:23 Abs Immat Gran (auto) 0.05 X10*3/uL (0.00-0.03) H 12/18/21 11:23 Absolute Neuts (auto) 10.2 x10*3/uL (2.0-8.3) H 12/18/21 11:23 Absolute Nucleated RBC 0.000 X10*3/uL (0.0-0.012) 12/19/21 11:30 Nucleated RBC % (auto) 0.0 /100WBC (0.0-0.2) 12/19/21 11:30 PT 13.8 SEC (10.0-13.1) H 12/19/21 11:30 INR 1.2 (0.9-1.1) H 12/19/21 11:30 aPTT Heparin Protocol 35.1 SEC (53-77.9) L 12/19/21 11:30 Sodium 141 mmol/L (135-145) 12/19/21 03:41 Potassium 5.0 mmol/L (3.3-5.1) 12/19/21 03:41 Chloride 107 mmol/L (96-108) 12/19/21 03:41 Carbon Dioxide 23 mmol/L (22-29) 12/19/21 03:41 Anion Gap 16 (12-20) 12/19/21 03:41 BUN 20 mg/dL (9-16) H 12/19/21 03:41 Creatinine 2.08 mg/dL (0.5-1.4) H 12/19/21 03:41 Estim Creat Clear Calc 29.2 12/19/21 03:41 Estimated GFR 31 12/19/21 03:41 Random Glucose 139 mg/dL (60-115) H 12/18/21 11:23 Fasting Glucose 117 mg/dL (60-99) H 12/19/21 03:41 Calcium 9.1 mg/dL (8.4-10.2) 12/19/21 03:41 Magnesium 2.0 mg/dL (1.6-2.6) 12/19/21 03:41 Total Bilirubin 1.5 mg/dL (0.0-1.0) H 12/19/21 03:41 Direct Bilirubin 0.6 mg/dL (0.0-0.5) H 12/19/21 03:41 AST 13 U/L (5-37) 12/19/21 03:41 ALT 7 U/L (0-40) 12/19/21 03:41 Alkaline Phosphatase 78 U/L (39-117) 12/19/21 03:41 Troponin I High Sens 298.2 ng/L (<3.5-35.0) H* D 12/18/21 18:12 B-Natriuretic Peptide 1395 pg/mL (<100) H 12/18/21 11:23 Total Protein 7.3 g/dL (6.5-8.0) 12/19/21 03:41 Albumin 4.4 g/dL (3.5-5.0) 12/19/21 03:41 Lipase 19 U/L (8-78) 12/18/21 11:23 Urine Color YELLOW 12/18/21 16:01 Urine Appearance CLEAR 12/18/21 16:01 Urine pH 5.5 (5.0-8.0) 12/18/21 16:01 Ur Specific [place] 1.020 (1.005-1.025) 12/18/21 16:01 Urine Protein NEG MG/DL (NEG-TRACE) 12/18/21 16:01 Urine Glucose (UA) NEG MG/DL (NEG) 12/18/21 16:01 Urine Ketones NEG MG/DL (NEG) 12/18/21 16:01 Urine Blood TRACE (NEG) 12/18/21 16:01 Urine Nitrite NEG (NEG) 12/18/21 16:01 Ur Leukocyte Esterase NEG (NEG) 12/18/21 16:01 Urine RBC 1-4 /HPF (0) 12/18/21 16:01 Urine WBC 0 /HPF (0-4) 12/18/21 16:01 Ur Squamous Epith Cells TRACE /LPF 12/18/21 16:01 Urine Bacteria TRACE /LPF 12/18/21 16:01 COVID-19 (TARA) Negative (Negative) 12/18/21 14:07 COVID-19 Clin Com See Note 12/18/21 14:07 Impressions Abdomen/Pelvis CT 12/18/21 12:11 IMPRESSION: 1. Cholelithiasis with mild surrounding pericholecystic fat stranding concerning for acute cholecystitis in the appropriate clinical setting. 2. New dilatation of the common bile duct. If choledocholithiasis is suspected, correlation with MRCP is recommended. 3. Nodularity of the liver contour with hypertrophy of the caudate raising the possibility of hepatocellular disease and cirrhosis. The possibility of portal hypertension is also raised in the setting of splenomegaly. 4. Periportal lymphadenopathy and upper mesenteric haziness, unchanged. 5. Moderate diverticulosis but no evidence to suggest acute diverticulitis. 6. Increased groundglass attenuation and tree-in-bud nodularities in the right middle lobe suggesting an infectious or inflammatory process of the small airways. There is also increased smooth septal thickening suggesting pulmonary edema. Correlate clinically and consider a follow-up chest CT to reassess. Chest X-Ray 12/18/21 14:09 IMPRESSION: Mildly coarsened interstitial markings bilaterally appear similar to the previous study, likely representing mild chronic changes. No definitive acute abnormality. Procedures Date of Service Date of Service: 12/19/21 Progress Note: A&P Assessment and plan (1) Acute cholecystitis: Status: Acute Assessment and Plan: No significant tenderness on the right upper quadrant Clinically does not have cholecystitis Continue antibiotics for now - he has some leukocytosis Follow LFTs Exam remains benign Has other medical issues Time Spent With Patient Time: Total time spent is greater than 50% in coordination of care (as documented) at patient's floor/unit and/or counseling patient: Quality Stroke Does the patient have a stroke diagnosis?: No VTE Prior VTE?: No VTE Risk Level:: Medical - moderate - high VTE Device Contraindication: Treatment Not Indicated VTE Drug Contraindication: N/A - Med Ordered
[2021-12-19 16:17] VITALS: BMI 25.2
[2021-12-19 20:00] VITALS: BP 130/89; PULSE 100; RESP 18; TEMP 36.1; O2SAT 95
[2021-12-19 20:11] LABS: PTT Heparin Drip 58.8 SEC (53-77.9)
[2021-12-19] MEDS: Loratadine 10 MG TABLET PO (20:21)
[2021-12-19] MEDS: Mirtazapine 30 MG TABLET PO (20:21)
[2021-12-19 23:06] VITALS: BP 159/94; PULSE 107; RESP 18; TEMP 36.9; O2SAT 93
[2021-12-20] MEDS: ondansetron HCL 4 MG/2 ML VIAL IVPUSH (02:22)
[2021-12-20] MEDS: Magnesium Hydrox/Alum Hydrox 30 ML ORAL.SUSP 15 ML PO (02:23)
[2021-12-20] MEDS: Acetaminophen 325 MG TABLET 650 MG PO (02:23)
[2021-12-20 02:43] LABS: Hematocrit 45.1 % (42.0-52.0); Hemoglobin 15.2 g/dl (14.0-18.0); Mean Corpuscular HGB Conc 33.7 g/dl (31.0-36.0); Mean Corpuscular Hemoglobin 28.6 pg (27.0-33.0); Mean Corpuscular Volume 84.9 fL (80.0-98.0); Mean Platelet Volume 10.1 fL (9.4-12.4); Platelet Count 181 X10*3/uL (160-400); Red Blood Count 5.31 X10*6/uL (4.60-5.80); Red Cell Distribution Width 14.2 % (11.0-16.0)
[2021-12-20] MEDS: Ampicillin Sodium/Sulbactam Na 1.5 GM in 0.9 % Sodium Chloride 100 ML IV ×4 (02:44→21:44)
[2021-12-20 02:56] LABS: PTT Heparin Drip 64.1 SEC (53-77.9)
[2021-12-20 03:09] VITALS: BP 142/63; PULSE 105; RESP 21; TEMP 36.1; O2SAT 93
[2021-12-20 03:12] LABS: Troponin-I High Sensitivity 172.2 ng/L (<3.5-35.0)
[2021-12-20 06:15] LABS: Hematocrit 46.8 % (42.0-52.0); Hemoglobin 15.4 g/dl (14.0-18.0); Mean Corpuscular HGB Conc 32.9 g/dl (31.0-36.0); Mean Corpuscular Hemoglobin 28.2 pg (27.0-33.0); Mean Corpuscular Volume 85.6 fL (80.0-98.0); Mean Platelet Volume 10.4 fL (9.4-12.4); Platelet Count 165 X10*3/uL (160-400); Red Blood Count 5.47 X10*6/uL (4.60-5.80); Red Cell Distribution Width 14.2 % (11.0-16.0); White Blood Count 11.9 X10*3/uL (4.8-10.8)
[2021-12-20 06:20] LABS: INTERNATIONAL NORM RATIO 1.2 (0.9-1.1); Prothrombin Time 13.5 SEC (10.0-13.1)
[2021-12-20 06:49] LABS: Alanine Aminotransferase 10 U/L (0-40); Albumin Level 4.5 g/dL (3.5-5.0); Alkaline Phosphatase 76 U/L (39-117); Anion Gap 18 (12-20); Aspartate Amino Transferase 20 U/L (5-37); Bilirubin Direct 0.8 mg/dL (0.0-0.5); Bilirubin Total 1.7 mg/dL (0.0-1.0); Blood Urea Nitrogen 30 mg/dL (9-16); Calcium 9.4 mg/dL (8.4-10.2); Carbon Dioxide 25 mmol/L (22-29); Chloride 104 mmol/L (96-108); Creatinine Clr Calc Pharmacy 29.5; Estimated Glomerular Filt Rate 31; Glucose Fasting 110 mg/dL (60-99); Potassium 3.8 mmol/L (3.3-5.1); Sodium 143 mmol/L (135-145); Total Protein 7.7 g/dL (6.5-8.0)
[2021-12-20 07:24] VITALS: BP 144/82; PULSE 107; RESP 18; TEMP 36.6; O2SAT 95
[2021-12-20 09:05] LABS: PTT Heparin Drip 55.3 SEC (53-77.9)
[2021-12-20] MEDS: Aspirin 81 MG TAB.CHEW PO (09:15)
[2021-12-20] MEDS: Clopidogrel Bisulfate 75 MG TABLET PO (09:15)
[2021-12-20] MEDS: Furosemide 40 MG/4 ML VIAL IVPUSH (09:15)
[2021-12-20] MEDS: Omeprazole 20 MG CAPSULE.DR PO (09:15)
[2021-12-20] MEDS: Thiamine HCL 100 MG TABLET PO (09:15)
[2021-12-20] MEDS: Cholecalciferol (Vitamin D3) 25 MCG TABLET 50 MCG PO (09:16)
--- NOTE | 2021-12-20 09:58 | PM.PNCARD ---
Subjective Subjective Date of Service: 12/20/21 Interval history: Patient's abdominal pain but does not have any clear chest pain. No other cardiac symptoms. Review of Systems Review of Systems Yes all other systems are reviewed and are negative Constitutional: Reports as per HPI Eyes: Reports as per HPI Reports as per HPI Cardiovascular: Reports as per HPI, Denies acrocyanosis, Denies cool extremities, Denies chest pain, Denies leg edema, Denies lightheadedness, Denies palpitations and Denies dyspnea Respiratory: Reports as per HPI, Reports no additional respiratory complaints and Denies dyspnea Gastrointestinal: Reports as per HPI, Reports no additional gastrointestinal complaints and Reports abdominal pain Genitourinary: Reports no additional male genitourinary complaints and Reports as per HPI Musculoskeletal: Reports no additional musculoskeletal complaints and Reports as per HPI Skin/Breast: Reports system reviewed and no additional complaints, except as docu Reports system reviewed and no additional complaints, except as documented and Reports as per HPI Psychiatric: Reports no additional psychiatric complaints and Reports as per HPI Endocrine: Reports no additional endocrine complaints, Reports as per HPI and Denies palpitations Hematologic/Lymphatic: Reports no additional hematologic/lymphatic complaints and Reports as per HPI Allergic/Immunologic: Reports no additional allergic/immunologic complaints and Reports as per HPI Physical Exam Vital Signs: Last Vital Signs Temp 98 F 12/20/21 07:24 Pulse 107 H 12/20/21 07:24 Resp 18 12/20/21 07:24 BP 144/82 H 12/20/21 07:24 Pulse Ox 95 12/20/21 07:24 O2 Del Method 12/20/21 07:24 O2 Flow Rate 4.5 12/20/21 07:24 BMI result Body Mass Index 25.2 Const General: comfortable and no acute distress Orientation/consciousness: patient oriented x3 HEENT Other: Unremarkable Head: Yes normal to inspection Neck Neck: Yes normal visual inspection Chest Chest palpation & inspection: normal inspection of the chest Resp Auscultation: clear to auscultation bilaterally Cardio Palpation: normal PMI Heart sounds: S1 normal heart sound present, S2 normal heart sound present, no gallops, no murmurs and no rubs GI Palpation (GI): Soft to palpation and Tenderness to palpation present (GI) Back/Spine/Pelvis Other: unremarkable Skin General skin exam: no rashes or lesions noted Neuro General: patient oriented x3 Extrem General: Yes normal to inspection Psych Mental Status: mental status grossly normal Objective Labs and Meds Result diagrams: 12/20/21 05:40 12/20/21 05:40 Lab results: Laboratory Results - last 24 hr 12/19/21 12/19/21 12/19/21 11:30 11:30 19:39 WBC 14.8 H RBC 4.98 Hgb 14.2 Hct 42.6 MCV 85.5 MCH 28.5 MCHC 33.3 RDW 14.2 Plt Count 150 L MPV 10.1 Absolute Nucleated RBC 0.000 Nucleated RBC % (auto) 0.0 PT 13.8 H INR 1.2 H aPTT Heparin Protocol 35.1 L 58.8 D Sodium Potassium Chloride Carbon Dioxide Anion Gap BUN Creatinine Estim Creat Clear Calc Estimated GFR Fasting Glucose Calcium Total Bilirubin Direct Bilirubin AST ALT Alkaline Phosphatase Troponin I High Sens Total Protein Albumin 12/20/21 12/20/21 12/20/21 02:38 02:38 02:38 WBC 17.0 H RBC 5.31 Hgb 15.2 Hct 45.1 MCV 84.9 MCH 28.6 MCHC 33.7 RDW 14.2 Plt Count 181 MPV 10.1 Absolute Nucleated RBC 0.000 Nucleated RBC % (auto) 0.0 PT INR aPTT Heparin Protocol 64.1 Sodium Potassium Chloride Carbon Dioxide Anion Gap BUN Creatinine Estim Creat Clear Calc Estimated GFR Fasting Glucose Calcium Total Bilirubin Direct Bilirubin AST ALT Alkaline Phosphatase Troponin I High Sens 172.2 H* Total Protein Albumin 12/20/21 12/20/21 12/20/21 05:40 05:40 05:40 WBC 11.9 H RBC 5.47 Hgb 15.4 Hct 46.8 MCV 85.6 MCH 28.2 MCHC 32.9 RDW 14.2 Plt Count 165 MPV 10.4 Absolute Nucleated RBC 0.000 Nucleated RBC % (auto) 0.0 PT 13.5 H INR 1.2 H aPTT Heparin Protocol Sodium 143 Potassium 3.8 D Chloride 104 Carbon Dioxide 25 Anion Gap 18 BUN 30 H Creatinine 2.06 H Estim Creat Clear Calc 29.5 Estimated GFR 31 Fasting Glucose 110 H Calcium 9.4 Total Bilirubin 1.7 H Direct Bilirubin 0.8 H AST 20 D ALT 10 Alkaline Phosphatase 76 Troponin I High Sens Total Protein 7.7 Albumin 4.5 12/20/21 08:32 WBC RBC Hgb Hct MCV MCH MCHC RDW Plt Count MPV Absolute Nucleated RBC Nucleated RBC % (auto) PT INR aPTT Heparin Protocol 55.3 Sodium Potassium Chloride Carbon Dioxide Anion Gap BUN Creatinine Estim Creat Clear Calc Estimated GFR Fasting Glucose Calcium Total Bilirubin Direct Bilirubin AST ALT Alkaline Phosphatase Troponin I High Sens Total Protein Albumin Imaging Radiologist's impression: Impressions Cholangiopancreatography MRI 12/19/21 13:15 IMPRESSION: * Mild hepatic steatosis and likely cirrhosis with splenomegaly. * Mild lymphadenopathy in the periportal region is likely reactive to the hepatic disease. * Cholelithiasis and findings equivocal for acute cholecystitis. Gallbladder wall is minimally thickened and there is edema of the pericholecystic fat, but this is nonspecific. If the patient clinically has right upper quadrant pain with Curiel's sign, then acute cholecystitis would be suspected. Alternatively, findings could be reactive to liver disease. Note that hepatitis can be associated with gallbladder wall thickening. * No evidence of choledocholithiasis. No biliary tract obstruction. Progress Note: A&P Assessment and plan (1) NSTEMI (non-ST elevated myocardial infarction): Status: Acute (2) Acute cholecystitis: Status: Acute (3) Cirrhosis of liver: Status: Acute Plan On the echocardiogram, LVEF mildly diminished at 46%. Wall motion abnormalities noted the could be indicative of underlying coronary disease. EKG likely sinus rhythm with a very long FL interval and right bundle-branch block and some PVCs. In the labs, creatinine is 2.06. BUN is 30. High sensitivity troponins are 131, 298 and 172. Overall, NSTEMI which could be demand related. He also has acute cholecystitis as well as cirrhosis, CKD. Discussed case with Dr. Winters and as he is otherwise asymptomatic from cardiac and with numerous medical issues, we decided on medical management only at this time. Holding off on cardiac catheterization. Discussed with Dr. Moreira as well as Dr. Sandoval. Also called both son as well as daughter in land line as well as cell phone but going to voicemail. Time Spent With Patient Time: Total time spent is greater than 50% in coordination of care (as documented) at patient's floor/unit and/or counseling patient: 40min Progress Note: Quality Stroke Does the patient have a stroke diagnosis?: No Procedures Date of Service Date of Service: 12/20/21
[2021-12-20] MEDS: Heparin Sodium,Porcine/1/2NS 25,000 UNIT/250 ML IV.SOLN 9.29 UNIT IVCONT (10:44)
[2021-12-20 11:32] VITALS: BP 105/71; PULSE 105; RESP 18; TEMP 36.2; O2SAT 92
--- NOTE | 2021-12-20 12:53 | P.PNGS_ITS ---
Subjective Subjective Date of Service: 12/20/21 Interval history: reported by hospitalist to have some epig tenderness earlier currently denies abdl pain says he wants to be discharged Physical Exam Vital Signs: Vital Signs: Last Vital Signs Temp 97.2 F 12/20/21 11:32 Pulse 105 H 12/20/21 11:32 Resp 18 12/20/21 11:32 BP 105/71 12/20/21 11:32 Pulse Ox 92 12/20/21 11:32 O2 Del Method 12/20/21 11:32 O2 Flow Rate 2 12/20/21 11:32 BMI result Body Mass Index 25.2 Const: General: comfortable and no acute distress Resp: Effort & Inspection: normal respiratory effort Cardio: Rate: regular rate GI: Other: soft, no obvious Curiel's sign, no significant tenderness on palaption Objective Data Active Medications Acetaminophen (Acetaminophen 325 Mg Tablet) 650 mg PO Q6H PRN PRN Reason: Pain, Mild (Pain Scale 1-3) Last Admin: 12/20/21 02:23 Dose: 650 mg Documented By: RICARDO Al Hydroxide/Mg Hydroxide (Magnesium Hydrox/Alum Hydrox 30 Ml Oral.Susp) 15 ml PO Q6H PRN PRN Reason: heartburn Last Admin: 12/20/21 02:23 Dose: 15 ml Documented By: RICARDO Allopurinol (Allopurinol 100 Mg Tablet) 50 mg PO Q2D [facility] Last Admin: 12/18/21 16:16 Dose: 50 mg Documented By: TOMAS Aspirin (Aspirin 81 Mg Tab.Chew) 81 mg PO DAILY [facility] Last Admin: 12/20/21 09:15 Dose: 81 mg Documented By: ILIR Clopidogrel Bisulfate (Clopidogrel Bisulfate 75 Mg Tablet) 75 mg PO DAILY [facility] Last Admin: 12/20/21 09:15 Dose: 75 mg Documented By: ILIR Furosemide (Furosemide 40 Mg/4 Ml Vial) 40 mg IVPUSH BID@0900,1800 [facility]; Protocol Last Admin: 12/20/21 09:15 Dose: 40 mg Documented By: ILIR Heparin Sodium (Porcine) (Heparin Sodium,Porcine 5,000 Unit/Ml Vial) 3,100 unit 40 unit/kg (3100 unit) IVPUSH PROTOCOL BOLUS PRN; Protocol PRN Reason: 40 unit/kg - Heparin Protocol Heparin Sodium (Porcine) (Heparin Sodium,Porcine 5,000 Unit/Ml Vial) 6,200 unit 80 unit/kg (6200 unit) IVPUSH PROTOCOL BOLUS PRN; Protocol PRN Reason: 80 unit/kg - Heparin Protocol Ampicillin Sodium/Sulbactam (Sodium 1.5 gm/ Sodium Chloride) 100 mls @ 200 mls/hr IV Q8H [facility] Last Infusion: 12/20/21 09:55 Dose: 0 mls/hr Documented By: ILIR Heparin Sodium/Sodium Chloride () 25,000 unit in 250 mls @ 0 mls/hr IVCONT .Q0M [facility]; Protocol Last Admin: 12/20/21 10:44 Dose: 12 units/kg/hr, 9.29 mls/hr Documented By: ILIR Co-signed By: MASHA Loratadine (Loratadine 10 Mg Tablet) 10 mg PO BEDTIME [facility] Last Admin: 12/19/21 20:21 Dose: 10 mg Documented By: VALDEZ Mirtazapine (Mirtazapine 30 Mg Tablet) 30 mg PO BEDTIME [facility] Last Admin: 12/19/21 20:21 Dose: 30 mg Documented By: VALDEZ Omeprazole (Omeprazole 20 Mg Capsule.Dr) 20 mg PO DAILY [facility] Last Admin: 12/20/21 09:15 Dose: 20 mg Documented By: ILIR Ondansetron HCl (Ondansetron Hcl 4 Mg/2 Ml Vial) 4 mg IVPUSH Q8H PRN PRN Reason: Nausea and Vomiting Last Admin: 12/20/21 02:22 Dose: 4 mg Documented By: RICARDO Pharmacy Consult (Consult Rx Perform Med Rec) 1 each MISCELLANE ONCE PRN PRN Reason: Consult order Sodium Chloride (0.9 % Sodium Chloride Flush 3 Ml Syringe) 3 ml IVFLUSH QSHIFT [facility] Last Admin: 12/20/21 09:16 Dose: Not Given Documented By: ILIR Non-Admin Reason: IV Running Thiamine HCl (Thiamine Hcl 100 Mg Tablet) 100 mg PO DAILY [facility] Last Admin: 12/20/21 09:15 Dose: 100 mg Documented By: ILIR Vitamin D (Cholecalciferol (Vitamin D3) 25 Mcg Tablet) 50 mcg PO DAILY [facility] Last Admin: 12/20/21 09:16 Dose: 50 mcg Documented By: ILIR Labs CBC & Chem 7: 12/20/21 05:40 12/20/21 05:40 Labs: Laboratory Results - last 24 hr 12/19/21 12/20/21 12/20/21 19:39 02:38 02:38 MCV 84.9 MCH 28.6 MCHC 33.7 RDW 14.2 Plt Count 181 MPV 10.1 Absolute Nucleated RBC 0.000 Nucleated RBC % (auto) 0.0 PT INR aPTT Heparin Protocol 58.8 D 64.1 Anion Gap Estim Creat Clear Calc Estimated GFR Fasting Glucose Calcium Total Bilirubin Direct Bilirubin AST ALT Alkaline Phosphatase Total Protein Albumin 12/20/21 12/20/21 12/20/21 05:40 05:40 05:40 MCV 85.6 MCH 28.2 MCHC 32.9 RDW 14.2 Plt Count 165 MPV 10.4 Absolute Nucleated RBC 0.000 Nucleated RBC % (auto) 0.0 PT 13.5 H INR 1.2 H aPTT Heparin Protocol Anion Gap 18 Estim Creat Clear Calc 29.5 Estimated GFR 31 Fasting Glucose 110 H Calcium 9.4 Total Bilirubin 1.7 H Direct Bilirubin 0.8 H AST 20 D ALT 10 Alkaline Phosphatase 76 Total Protein 7.7 Albumin 4.5 12/20/21 08:32 MCV MCH MCHC RDW Plt Count MPV Absolute Nucleated RBC Nucleated RBC % (auto) PT INR aPTT Heparin Protocol 55.3 Anion Gap Estim Creat Clear Calc Estimated GFR Fasting Glucose Calcium Total Bilirubin Direct Bilirubin AST ALT Alkaline Phosphatase Total Protein Albumin Microbiology Microbiology Results: Microbiology 12/18/21 14:45 Blood Culture - Preliminary Blood - Venous No growth after 24 hours. 12/18/21 14:35 Blood Culture - Preliminary Blood - Venous No growth after 24 hours. Procedures Date of Service Date of Service: 12/20/21 Progress Note: A&P Assessment and plan (1) Acute cholecystitis: Status: Acute Assessment and Plan: no obvious tenderness on current exam WBC down no fever does not look toxic continue abx tx high risk for operative intervention also with significant cardiac disease Time Spent With Patient Time: Total time spent is greater than 50% in coordination of care (as documented) at patient's floor/unit and/or counseling patient: Quality Stroke Does the patient have a stroke diagnosis?: No VTE Prior VTE?: No VTE Risk Level:: Medical - moderate - high VTE Device Contraindication: Treatment Not Indicated VTE Drug Contraindication: N/A - Med Ordered
--- NOTE | 2021-12-20 14:18 | MHC.CM.PN ---
Per ROUNDS discussion, patient not yet medically cleared for discharge r/t pain (pain management). CM will continue to follow for D/C needs. Elissa of [facility] requested call back regarding D/C [phone] (c). CM returned call, Left with message informing No D/C planned for today.
--- NOTE | 2021-12-20 14:26 | HO.PM.IMPN ---
Subjective Subjective Date of Service: 12/20/21 Interval History: Seen and evaluated this morning Complaining of generalized abdominal pain Denies any coughing, fever or chills No reported other overnight events Review of Systems No fever, chills or weakness No chest pain, palpitation No shortness of breath or coughing Epigastric pain, no nausea or vomiting No urinary symptoms No any rash or wounds Physical Exam Vital Signs: Vital Signs: Last Vital Signs Temp 97.2 F 12/20/21 11:32 Pulse 105 H 12/20/21 11:32 Resp 18 12/20/21 11:32 BP 105/71 12/20/21 11:32 Pulse Ox 92 12/20/21 11:32 O2 Del Method 12/20/21 11:32 O2 Flow Rate 2 12/20/21 11:32 BMI result Body Mass Index 25.2 Const: Other: Constitutional : Alert, oriented, not in distress Neck : Normal inspection, Supple Cardiovascular : RRR, no JVP, no lower extremity edema Respiratory : fair bilateral air entry, no crackles, wheezes or rhonchi Gastrointestinal: soft, lax, Normal bowel sounds, mild epigastric tenderness, no Curiel's sign Skin : Warm, Dry Neurological : Alert & oriented x3, No focal deficit , CN 2-12 within normal Objective Data Active Medications Acetaminophen (Acetaminophen 325 Mg Tablet) 650 mg PO Q6H PRN PRN Reason: Pain, Mild (Pain Scale 1-3) Last Admin: 12/20/21 02:23 Dose: 650 mg Documented By: RICARDO Al Hydroxide/Mg Hydroxide (Magnesium Hydrox/Alum Hydrox 30 Ml Oral.Susp) 15 ml PO Q6H PRN PRN Reason: heartburn Last Admin: 12/20/21 02:23 Dose: 15 ml Documented By: RICARDO Allopurinol (Allopurinol 100 Mg Tablet) 50 mg PO Q2D [facility] Last Admin: 12/18/21 16:16 Dose: 50 mg Documented By: TOMAS Aspirin (Aspirin 81 Mg Tab.Chew) 81 mg PO DAILY [facility] Last Admin: 12/20/21 09:15 Dose: 81 mg Documented By: ILIR Clopidogrel Bisulfate (Clopidogrel Bisulfate 75 Mg Tablet) 75 mg PO DAILY [facility] Last Admin: 12/20/21 09:15 Dose: 75 mg Documented By: ILIR Furosemide (Furosemide 40 Mg/4 Ml Vial) 40 mg IVPUSH BID@0900,1800 [facility]; Protocol Last Admin: 12/20/21 09:15 Dose: 40 mg Documented By: ILIR Heparin Sodium (Porcine) (Heparin Sodium,Porcine 5,000 Unit/Ml Vial) 3,100 unit 40 unit/kg (3100 unit) IVPUSH PROTOCOL BOLUS PRN; Protocol PRN Reason: 40 unit/kg - Heparin Protocol Heparin Sodium (Porcine) (Heparin Sodium,Porcine 5,000 Unit/Ml Vial) 6,200 unit 80 unit/kg (6200 unit) IVPUSH PROTOCOL BOLUS PRN; Protocol PRN Reason: 80 unit/kg - Heparin Protocol Ampicillin Sodium/Sulbactam (Sodium 1.5 gm/ Sodium Chloride) 100 mls @ 200 mls/hr IV Q8H [facility] Last Infusion: 12/20/21 09:55 Dose: 0 mls/hr Documented By: ILIR Heparin Sodium/Sodium Chloride () 25,000 unit in 250 mls @ 0 mls/hr IVCONT .Q0M [facility]; Protocol Last Admin: 12/20/21 10:44 Dose: 12 units/kg/hr, 9.29 mls/hr Documented By: ILIR Co-signed By: MASHA Loratadine (Loratadine 10 Mg Tablet) 10 mg PO BEDTIME [facility] Last Admin: 12/19/21 20:21 Dose: 10 mg Documented By: VALDEZ Mirtazapine (Mirtazapine 30 Mg Tablet) 30 mg PO BEDTIME [facility] Last Admin: 12/19/21 20:21 Dose: 30 mg Documented By: VALDEZ Omeprazole (Omeprazole 20 Mg Capsule.Dr) 20 mg PO DAILY [facility] Last Admin: 12/20/21 09:15 Dose: 20 mg Documented By: ILIR Ondansetron HCl (Ondansetron Hcl 4 Mg/2 Ml Vial) 4 mg IVPUSH Q8H PRN PRN Reason: Nausea and Vomiting Last Admin: 12/20/21 02:22 Dose: 4 mg Documented By: RICARDO Pharmacy Consult (Consult Rx Perform Med Rec) 1 each MISCELLANE ONCE PRN PRN Reason: Consult order Sodium Chloride (0.9 % Sodium Chloride Flush 3 Ml Syringe) 3 ml IVFLUSH QSHIFT [facility] Last Admin: 12/20/21 09:16 Dose: Not Given Documented By: ILIR Non-Admin Reason: IV Running Thiamine HCl (Thiamine Hcl 100 Mg Tablet) 100 mg PO DAILY [facility] Last Admin: 12/20/21 09:15 Dose: 100 mg Documented By: ILIR Vitamin D (Cholecalciferol (Vitamin D3) 25 Mcg Tablet) 50 mcg PO DAILY [facility] Last Admin: 12/20/21 09:16 Dose: 50 mcg Documented By: ILIR Labs CBC & Chem 7: 12/20/21 05:40 12/20/21 05:40 Labs: Laboratory Results - last 24 hr 12/19/21 12/20/21 12/20/21 19:39 02:38 02:38 MCV 84.9 MCH 28.6 MCHC 33.7 RDW 14.2 Plt Count 181 MPV 10.1 Absolute Nucleated RBC 0.000 Nucleated RBC % (auto) 0.0 PT INR aPTT Heparin Protocol 58.8 D 64.1 Anion Gap Estim Creat Clear Calc Estimated GFR Fasting Glucose Calcium Total Bilirubin Direct Bilirubin AST ALT Alkaline Phosphatase Total Protein Albumin 12/20/21 12/20/21 12/20/21 05:40 05:40 05:40 MCV 85.6 MCH 28.2 MCHC 32.9 RDW 14.2 Plt Count 165 MPV 10.4 Absolute Nucleated RBC 0.000 Nucleated RBC % (auto) 0.0 PT 13.5 H INR 1.2 H aPTT Heparin Protocol Anion Gap 18 Estim Creat Clear Calc 29.5 Estimated GFR 31 Fasting Glucose 110 H Calcium 9.4 Total Bilirubin 1.7 H Direct Bilirubin 0.8 H AST 20 D ALT 10 Alkaline Phosphatase 76 Total Protein 7.7 Albumin 4.5 12/20/21 08:32 MCV MCH MCHC RDW Plt Count MPV Absolute Nucleated RBC Nucleated RBC % (auto) PT INR aPTT Heparin Protocol 55.3 Anion Gap Estim Creat Clear Calc Estimated GFR Fasting Glucose Calcium Total Bilirubin Direct Bilirubin AST ALT Alkaline Phosphatase Total Protein Albumin Microbiology Microbiology Results: Microbiology 12/18/21 14:45 Blood Culture - Preliminary Blood - Venous No growth after 24 hours. 12/18/21 14:35 Blood Culture - Preliminary Blood - Venous No growth after 24 hours. Assessment and Plan (1) Cirrhosis of liver: Status: Acute (2) New onset of congestive heart failure: Status: Acute (3) NSTEMI (non-ST elevated myocardial infarction): Status: Acute (4) Acute cholecystitis: Status: Acute Plan 76M presented with abdominal pain, found to have acute cholecystitis, elevated troponin, chf, suspect aspiratoin pneumonia acute cholecystitis MRCP done showing equivocal possibility of acute cholecystitis The surgery input appreciated, no obvious tenderness, no need for intervention, treated with antibiotics only continue unasyn Negative cultures monitor lfts - tbili increasing NSTEMI echo showing EF of 45% with wall motion abnormality detected Cardio input appreciated; treat with Heparin for 48 hours Continue aspirin, Plavix concerns about statin given his cirrhosis Medical management at this point per Cardiology who and holding of any cardiac catheterization aspiration pneumonia vs pnuemonitis complicated by acute hypoxic respiratory failure continue unasyn weab O2 down as tolerated acute chf unspecified DC iv lasix, change to PO monitor electrolytes ETOH cirrhosis sober 5 years, appears compensated get GI eval for elevated T.Bili cad dapl CKD IV stable, monitor prostate ca outpatient follow up dementia at baseline, 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 Quality Stroke Does the patient have a stroke diagnosis?: No VTE Prior VTE?: No VTE Risk Level:: Medical - moderate - high VTE Device Contraindication: Treatment Not Indicated VTE Drug Contraindication: N/A - Med Ordered
[2021-12-20] MEDS: allopurinoL 100 MG TABLET 50 MG PO (15:09)
[2021-12-20 15:45] VITALS: BP 116/72; PULSE 111; RESP 18; TEMP 36.4; O2SAT 97
[2021-12-20 16:46] LABS: PTT Heparin Drip 48.2 SEC (53-77.9)
[2021-12-20] MEDS: Heparin Sodium,Porcine 5,000 UNIT/ML VIAL 3100 UNIT IVPUSH (16:59)
[2021-12-20 19:17] VITALS: BP 138/78; PULSE 101; RESP 18; TEMP 36.6; O2SAT 94
[2021-12-20] MEDS: Loratadine 10 MG TABLET PO (21:44)
[2021-12-20] MEDS: Mirtazapine 30 MG TABLET PO (21:44)
[2021-12-20] MEDS: 0.9 % Sodium Chloride Flush 3 ML SYRINGE IVFLUSH (21:45)
[2021-12-20 22:55] LABS: PTT Heparin Drip 44.7 SEC (53-77.9)
[2021-12-20 23:13] VITALS: BP 136/92; PULSE 92; RESP 20; TEMP 36.1; O2SAT 90
[2021-12-21] MEDS: Heparin Sodium,Porcine 5,000 UNIT/ML VIAL 3100 UNIT IVPUSH (00:24)
[2021-12-21 03:23] VITALS: BP 142/74; PULSE 93; RESP 17; TEMP 36.4; O2SAT 94
[2021-12-21 06:05] LABS: Hematocrit 40.7 % (42.0-52.0); Hemoglobin 13.5 g/dl (14.0-18.0); Mean Corpuscular HGB Conc 33.2 g/dl (31.0-36.0); Mean Corpuscular Hemoglobin 28.4 pg (27.0-33.0); Mean Corpuscular Volume 85.5 fL (80.0-98.0); Mean Platelet Volume 10.5 fL (9.4-12.4); Platelet Count 144 X10*3/uL (160-400); Red Blood Count 4.76 X10*6/uL (4.60-5.80); Red Cell Distribution Width 14.1 % (11.0-16.0); White Blood Count 9.6 X10*3/uL (4.8-10.8)
[2021-12-21 07:03] LABS: Anion Gap 15 (12-20); Blood Urea Nitrogen 36 mg/dL (9-16); Calcium 8.5 mg/dL (8.4-10.2); Carbon Dioxide 24 mmol/L (22-29); Chloride 104 mmol/L (96-108); Creatinine Clr Calc Pharmacy 28.9; Estimated Glomerular Filt Rate 31; Glucose Random 102 mg/dL (60-115); Potassium 3.6 mmol/L (3.3-5.1); Sodium 139 mmol/L (135-145)
[2021-12-21 07:04] LABS: Alanine Aminotransferase 25 U/L (0-40); Albumin Level 3.6 g/dL (3.5-5.0); Alkaline Phosphatase 75 U/L (39-117); Aspartate Amino Transferase 25 U/L (5-37); Bilirubin Direct 0.6 mg/dL (0.0-0.5); Bilirubin Total 1.2 mg/dL (0.0-1.0); Total Protein 6.2 g/dL (6.5-8.0)
[2021-12-21 07:20] VITALS: BP 122/58; PULSE 81; RESP 17; TEMP 36.4; O2SAT 92
[2021-12-21 07:56] LABS: PTT Heparin Drip 53.2 SEC (53-77.9)
[2021-12-21] MEDS: Heparin Sodium,Porcine/1/2NS 25,000 UNIT/250 ML IV.SOLN 12.38 UNIT IVCONT (09:58)
[2021-12-21] MEDS: Ampicillin Sodium/Sulbactam Na 1.5 GM in 0.9 % Sodium Chloride 100 ML IV (10:03)
[2021-12-21] MEDS: Thiamine HCL 100 MG TABLET PO (10:03)
[2021-12-21] MEDS: Furosemide 40 MG TABLET PO (10:03)
[2021-12-21] MEDS: 0.9 % Sodium Chloride Flush 3 ML SYRINGE IVFLUSH (10:04)
[2021-12-21] MEDS: Clopidogrel Bisulfate 75 MG TABLET PO (10:04)
[2021-12-21] MEDS: Cholecalciferol (Vitamin D3) 25 MCG TABLET 50 MCG PO (10:04)
[2021-12-21] MEDS: Aspirin 81 MG TAB.CHEW PO (10:04)
[2021-12-21] MEDS: Omeprazole 20 MG CAPSULE.DR PO (10:04)
[2021-12-21 10:58] VITALS: BP 129/75; PULSE 85; RESP 18; TEMP 36.6; O2SAT 91
--- NOTE | 2021-12-21 11:09 | P.PNCA_ITS ---
Subjective Subjective Date of Service: 12/21/21 Interval history: He states that he feels well. No specific complaints. No angina or shortness of breath or in fact anything cardiac related at all. Review of Systems Review of Systems Yes all other systems are reviewed and are negative Constitutional: Reports as per HPI Eyes: Reports as per HPI Reports as per HPI Cardiovascular: Reports as per HPI, Denies acrocyanosis, Denies cool extremities, Denies chest pain, Denies leg edema, Denies lightheadedness, Denies palpitations and Denies dyspnea Respiratory: Reports as per HPI, Reports no additional respiratory complaints and Denies dyspnea Gastrointestinal: Reports as per HPI and Reports no additional gastrointestinal complaints Genitourinary: Reports no additional male genitourinary complaints and Reports as per HPI Musculoskeletal: Reports no additional musculoskeletal complaints and Reports as per HPI Skin/Breast: Reports system reviewed and no additional complaints, except as docu Reports system reviewed and no additional complaints, except as documented and Reports as per HPI Psychiatric: Reports no additional psychiatric complaints and Reports as per HPI Endocrine: Reports no additional endocrine complaints, Reports as per HPI and Denies palpitations Hematologic/Lymphatic: Reports no additional hematologic/lymphatic complaints and Reports as per HPI Allergic/Immunologic: Reports no additional allergic/immunologic complaints and Reports as per HPI Physical Exam Vital Signs: Last Vital Signs Temp 97.8 F 12/21/21 10:58 Pulse 85 12/21/21 10:58 Resp 18 12/21/21 10:58 BP 129/75 12/21/21 10:58 Pulse Ox 91 L 12/21/21 10:58 O2 Del Method 12/21/21 10:58 O2 Flow Rate 2 12/21/21 07:20 BMI result Body Mass Index 25.2 Const General: comfortable and no acute distress Orientation/consciousness: patient oriented x3 HEENT Other: Unremarkable Head: Yes normal to inspection Neck Neck: Yes normal visual inspection Chest Chest palpation & inspection: normal inspection of the chest Resp Auscultation: clear to auscultation bilaterally Cardio Palpation: normal PMI Heart sounds: S1 normal heart sound present, S2 normal heart sound present, no g allops, no murmurs and no rubs GI Palpation (GI): Soft to palpation Back/Spine/Pelvis Other: unremarkable Skin General skin exam: no rashes or lesions noted Neuro General: patient oriented x3 Extrem General: Yes normal to inspection Psych Mental Status: mental status grossly normal Objective Labs and Meds Result diagrams: 12/21/21 05:45 12/21/21 05:45 Lab results: Laboratory Results - last 24 hr 12/20/21 12/20/21 12/21/21 16:00 22:39 05:45 WBC 9.6 RBC 4.76 Hgb 13.5 L Hct 40.7 L MCV 85.5 MCH 28.4 MCHC 33.2 RDW 14.1 Plt Count 144 L MPV 10.5 Absolute Nucleated RBC 0.000 Nucleated RBC % (auto) 0.0 aPTT Heparin Protocol 48.2 L 44.7 L Sodium Potassium Chloride Carbon Dioxide Anion Gap BUN Creatinine Estim Creat Clear Calc Estimated GFR Random Glucose Calcium Total Bilirubin Direct Bilirubin AST ALT Alkaline Phosphatase Total Protein Albumin 12/21/21 12/21/21 12/21/21 05:45 05:45 07:28 WBC RBC Hgb Hct MCV MCH MCHC RDW Plt Count MPV Absolute Nucleated RBC Nucleated RBC % (auto) aPTT Heparin Protocol 53.2 Sodium 139 Potassium 3.6 Chloride 104 Carbon Dioxide 24 Anion Gap 15 BUN 36 H Creatinine 2.10 H Estim Creat Clear Calc 28.9 Estimated GFR 31 Random Glucose 102 Calcium 8.5 D Total Bilirubin 1.2 H Direct Bilirubin 0.6 H AST 25 ALT 25 Alkaline Phosphatase 75 Total Protein 6.2 L Albumin 3.6 Progress Note: A&P Assessment and plan (1) NSTEMI (non-ST elevated myocardial infarction): Status: Acute (2) Acute cholecystitis: Status: Acute (3) Cirrhosis of liver: Status: Acute (4) CKD (chronic kidney disease): Status: Acute Plan Cardiac studies reviewed. EKG likely sinus rhythm with a very long CT interval and right bundle-branch block and some PVCs. On the echocardiogram, LVEF mildly diminished at 46%. Wall motion abnormalities noted the could be indicative of underlying coronary disease. Creatinine is 2.06. BUN is 30. High sensitivity troponins are 131, 298 and 172. Overall, NSTEMI which could be demand related. He also has acute cholecystitis as well as cirrhosis, CKD. Case was discussed with molasses coloring operator yesterday. It was felt that he was not suitable for any diagnostic catheterization at this time. Hence medical management only. Discussed with patient about the above and explain in detail. He is well aware and able to understand. He is agreeable with the plan. With regard to medications, he seems to be on chronic dual antiplatelet therapy but not clear why. In the long run, aspirin should be sufficient especially with bleeding risk. Probably stop Plavix in a few weeks. He is also on PPIs. Due to long CT, will hold off on any rate slowing agents. Due to cirrhosis, may not be able to take statins. Discussed plan with Dr. Sandoavl. Try to reach family again. Call daughter on cell phone as well as land line but unable to talk to her. Time Spent With Patient Time: Total time spent is greater than 50% in coordination of care (as documented) at patient's floor/unit and/or counseling patient: 35min. Progress Note: Quality Stroke Does the patient have a stroke diagnosis?: No Procedures Date of Service Date of Service: 12/21/21
--- NOTE | 2021-12-21 11:33 | PM.DS ---
DS: Providers Provider Date of Service: 12/21/21 Date of admission: 12/18/21 15:15 Primary care physician: Jamison Winn Consults: 12/18/21 15:14 Consult to General Surgery Routine Consulting Provider: Tien Moreira Reason for consultation: acute cholecystitis 12/18/21 15:21 Consult to Cardiology Routine Consulting Provider: Nnamdi Damon Reason for consultation: chf, elevated trop 12/20/21 14:29 Consult to Gastroenterology Routine Consulting Provider: Lc Avalos Reason for consultation: Abd pain, T.bili elevation, esophageal varices? for your kind eval and rec DS: Diagnosis Discharge Diagnosis (1) NSTEMI (non-ST elevated myocardial infarction): Status: Acute (2) Acute cholecystitis: Status: Acute (3) Cirrhosis of liver: Status: Acute (4) CKD (chronic kidney disease): Status: Acute (5) Aspiration into airway: Status: Acute (6) New onset of congestive heart failure: Status: Acute DS: Summary Hospital Course Hospital Course: Admission note [facility] 76[facility], poor historian, history obtained primarly [facility] and [facility]. patient presented with diffuse abdominal pain, 2 days, a/w nausea, vomitting. in ED patient denies sob, chest pain, reports ongoing abd pain. CT abd suspcious for acute cholecystitis, also bibasialr ground glass opacities suspiocus for aspiratoin. trop elevated, bnp elevated. Hospital course The patient was admitted for evaluation of abdominal pain. Found to have an evidence of acute cholecystitis on the CT scan and ultrasound. Evaluated by surgical team who did not feel the patient clinically who presents acute cholecystitis recommended treatment with antibiotics only as he was started on Unasyn. Blood cultures remain negative during the hospital stay as liver function test improved. MRCP was done showing equally focal possibility of cholecystitis. Surgery continue to recommend oral antibiotic at time of discharge S the patient symptoms completely resolved. To be discharged on low-fat diet. Noted to have elevated troponin at time of presentation. Evaluated by Cardiology team who recommended starting heparin drip for total of 48 hours. Echo showed EF of 45% with wall motion abnormality. Discussed with carbon paper machine operator who recommended against angiogram given the patient other comorbidities suggesting medical treatment only. To continue with aspirin and Plavix with a plan to discontinue Plavix within the next 3 months. Start atorvastatin 40 mg at bedtime after discussion with Gastroenterology and to follow liver function test. Resume home dose metoprolol XL. Noted to have evidence of pneumonia at time of presentation treated with IV antibiotics of Unasyn with good response. Treated for CHF exacerbation with IV Lasix. To be discharged on low-dose of 20 mg of Lasix daily to be followed and monitored as outpatient. Continue aspirin and Plavix, to discontinue Plavix within the next 3 months Start atorvastatin 40 mg at bedtime, monitor liver function test given history of cirrhosis Continue antibiotic of Augmentin for the next 5 days Time Spent with Patient Time attestation: Total time spent providing and/or coordinating discharge services: Discharge coordination time: Greater than 30 minutes Quality: Safe Use of Opioids Does Pt have an Active Cancer Diagnosis on the Problem List?: No Quality: Stroke Does the patient have a stroke diagnosis?: No Physical Exam Vital Signs: Vital Signs: Last Vital Signs Temp 97.8 F 12/21/21 10:58 Pulse 85 12/21/21 10:58 Resp 18 12/21/21 10:58 BP 129/75 12/21/21 10:58 Pulse Ox 91 L 12/21/21 10:58 O2 Del Method 12/21/21 10:58 O2 Flow Rate 2 12/21/21 07:20 BMI result Body Mass Index 25.2 Const: Other: Constitutional : Alert, oriented, not in distress Neck : Normal inspection, Supple Cardiovascular : RRR, no JVP, no lower extremity edema Respiratory : fair bilateral air entry, no crackles, wheezes or rhonchi Gastrointestinal: soft, lax, Normal bowel sounds, no tenderness, no Curiel's sign Skin : Warm, Dry Neurological : Alert & oriented x3, No focal deficit , CN 2-12 within normal DS: Data Data Completed and Pending Labs on day of discharge: Laboratory Results - last 24 hr 12/20/21 12/20/21 12/21/21 16:00 22:39 05:45 WBC 9.6 RBC 4.76 Hgb 13.5 L Hct 40.7 L MCV 85.5 MCH 28.4 MCHC 33.2 RDW 14.1 Plt Count 144 L MPV 10.5 Absolute Nucleated RBC 0.000 Nucleated RBC % (auto) 0.0 aPTT Heparin Protocol 48.2 L 44.7 L Sodium Potassium Chloride Carbon Dioxide Anion Gap BUN Creatinine Estim Creat Clear Calc Estimated GFR Random Glucose Calcium Total Bilirubin Direct Bilirubin AST ALT Alkaline Phosphatase Total Protein Albumin 12/21/21 12/21/21 12/21/21 05:45 05:45 07:28 WBC RBC Hgb Hct MCV MCH MCHC RDW Plt Count MPV Absolute Nucleated RBC Nucleated RBC % (auto) aPTT Heparin Protocol 53.2 Sodium 139 Potassium 3.6 Chloride 104 Carbon Dioxide 24 Anion Gap 15 BUN 36 H Creatinine 2.10 H Estim Creat Clear Calc 28.9 Estimated GFR 31 Random Glucose 102 Calcium 8.5 D Total Bilirubin 1.2 H Direct Bilirubin 0.6 H AST 25 ALT 25 Alkaline Phosphatase 75 Total Protein 6.2 L Albumin 3.6 Preliminary micro results at discharge 12/18/21 14:45 Blood Culture - Preliminary Blood - Venous No growth after 48 hours. 12/18/21 14:35 Blood Culture - Preliminary Blood - Venous No growth after 48 hours. Imaging MRI - abdomen: Radiologist's impression: ITS Impressions Abdomen/Pelvis CT 12/18/21 12:11 IMPRESSION: 1. Cholelithiasis with mild surrounding pericholecystic fat stranding concerning for acute cholecystitis in the appropriate clinical setting. 2. New dilatation of the common bile duct. If choledocholithiasis is suspected, correlation with MRCP is recommended. 3. Nodularity of the liver contour with hypertrophy of the caudate raising the possibility of hepatocellular disease and cirrhosis. The possibility of portal hypertension is also raised in the setting of splenomegaly. 4. Periportal lymphadenopathy and upper mesenteric haziness, unchanged. 5. Moderate diverticulosis but no evidence to suggest acute diverticulitis. 6. Increased groundglass attenuation and tree-in-bud nodularities in the right middle lobe suggesting an infectious or inflammatory process of the small airways. There is also increased smooth septal thickening suggesting pulmonary edema. Correlate clinically and consider a follow-up chest CT to reassess. Chest X-Ray 12/18/21 14:09 IMPRESSION: Mildly coarsened interstitial markings bilaterally appear similar to the previous study, likely representing mild chronic changes. No definitive acute abnormality. Cholangiopancreatography MRI 12/19/21 13:15 IMPRESSION: * Mild hepatic steatosis and likely cirrhosis with splenomegaly. * Mild lymphadenopathy in the periportal region is likely reactive to the hepatic disease. * Cholelithiasis and findings equivocal for acute cholecystitis. Gallbladder wall is minimally thickened and there is edema of the pericholecystic fat, but this is nonspecific. If the patient clinically has right upper quadrant pain with Curiel's sign, then acute cholecystitis would be suspected. Alternatively, findings could be reactive to liver disease. Note that hepatitis can be associated with gallbladder wall thickening. * No evidence of choledocholithiasis. No biliary tract obstruction. Discharge Plan Discharge Patient Disposition: [facility] Discharge Diagnosis: Acute cholecystitis NSTEMI Referrals: [facility] [Outside] - 1 Week Jamison Winn [Primary Care Provider] - 1 Week Discharge Medications: New furosemide 40 mg Tablet 20 mg PO DAILY 30 Days Qty: 15 0RF Protocol: Hold for SBP< HOLD for SBP < : 90 amoxicillin-pot clavulanate 875-125 mg tablet 1 tab PO BID Qty: 10 0RF atorvastatin 40 mg tablet 40 mg PO BEDTIME Qty: 30 0RF Continued thiamine HCl (vitamin B1) 100 mg Tablet 100 mg PO DAILY clopidogrel 75 mg Tablet 75 mg PO DAILY allopurinol 100 mg Tablet 50 mg PO Q2D pantoprazole 40 mg Tablet,Delayed Release (Dr/Ec) 40 mg PO DAILY mirtazapine 30 mg tablet 1 tab PO BEDTIME aspirin 81 mg Tablet,Chewable 81 mg PO DAILY metoprolol succinate 25 mg tablet extended release 24 hr 1 tab PO DAILY loratadine 10 mg Tablet 10 mg PO BEDTIME cholecalciferol (vitamin D3) 50 mcg (2,000 unit) Tablet 50 mcg PO DAILY tramadol 50 mg tablet 50 mg PO Q12H PRN (Reason: pain) Discharge Orders: Discharge Order (Routine); Ordered 12/21/21 Ordered By: Dolly Sandoval Diet: Low fat, low cholesterol Activity on Discharge: As tolerated Stand Alone Forms: Patient Portal Discharge page Other Ambulatory Orders: Liver Panel (Routine) Timeframe: 1 Week Facility: [facility] - Location: Laboratory Ordered By: Dolly Sandoval Care Plan Goals: Read below Health Concerns: Read below Plan of Treatment: Read below Assessment: You were admitted to the hospital for evaluation of abdominal pain. Treated for concerns over gallbladder inflammation as you were evaluated by a surgeon and had ultrasound and MRI of her abdomen. Recommended to be treated with IV antibiotics with good response over the course of hospital stay. Noticed to have elevated cardiac enzymes. Evaluated by inorganic chemistry professor who recommended treatment for heart attack with blood thinners. Discussed the need of cardiac angiogram which interventional cardiology did not recommend given your other comorbidities. Suggested treatment with medical management. Continue aspirin and Plavix, to discontinue Plavix within the next 3 months Start atorvastatin 40 mg at bedtime, monitor liver function test given history of cirrhosis Continue antibiotic of Augmentin for the next 5 days Discharge Date/Time: 12/21/21 15:56
--- NOTE | 2021-12-21 12:42 | PC.NURSE ---
Pt alert and oriented x3. Denies pain or discomfort. Pt continues on Heparin drip running at 16 units/kg/hr=12.38ml/hr. Last PTT at 0700 was 53.2. No rate or dosage change. notified of Cardiology note of giving Heparin drip for 48hrs then D/C it. Heparin drip will stop this afternoon at 1321, after which pt will D/C home.
[2021-12-21 13:46] LABS: COVID-19 Test Negative (Negative); IDNOW Serial# 55D5AD1C
--- NOTE | 2021-12-21 14:14 | PM.EVENT ---
Event Note Date of Service: 12/21/21 Event Note: GI Consult-Full note dictated-History via patient and EMR. Patient is oriented to person, place, and year, but not month. Answers questions appropriately. Imp: Previous abdominal pain/gallstones/? cholecystitis and chronic EtOH-induced liver disease. He presently appears very comfortable. He is tolerating liquids, his abdominal exam is benign, and he denies any abdominal/GI complaints. His liver disease appears well-compensated, and his liver function is very good based on his labs and his appearance. Rec: Advance diet. Continue PPI halfway. Avoid NSAIDs halfway. Finish course of antibiotics for presumed cholecystitis. F/U LFT's on the statin medication. I don't think he needs any further w/u from my standpoint. Please contact me if I can of any further assistance. Thanks.
--- NOTE | 2021-12-21 14:17 | P.PNGS_ITS ---
Subjective Subjective Date of Service: 12/21/21 Interval history: Denies pain No abdominal complaints Says he is comfortable Physical Exam Vital Signs: Vital Signs: Last Vital Signs Temp 97.8 F 12/21/21 10:58 Pulse 85 12/21/21 10:58 Resp 18 12/21/21 10:58 BP 129/75 12/21/21 10:58 Pulse Ox 91 L 12/21/21 10:58 O2 Del Method 12/21/21 10:58 O2 Flow Rate 2 12/21/21 07:20 BMI result Body Mass Index 25.2 Const: General: comfortable and no acute distress Resp: Effort & Inspection: normal respiratory effort Cardio: Rate: regular rate GI: Other: Soft, nontender, no Curiel's sign, no guarding rebound Objective Data Active Medications Acetaminophen (Acetaminophen 325 Mg Tablet) 650 mg PO Q6H PRN PRN Reason: Pain, Mild (Pain Scale 1-3) Last Admin: 12/20/21 02:23 Dose: 650 mg Documented By: RICARDO Al Hydroxide/Mg Hydroxide (Magnesium Hydrox/Alum Hydrox 30 Ml Oral.Susp) 15 ml PO Q6H PRN PRN Reason: heartburn Last Admin: 12/20/21 02:23 Dose: 15 ml Documented By: RICARDO Allopurinol (Allopurinol 100 Mg Tablet) 50 mg PO Q2D [facility] Last Admin: 12/20/21 15:09 Dose: 50 mg Documented By: ILIR Aspirin (Aspirin 81 Mg Tab.Chew) 81 mg PO DAILY [facility] Last Admin: 12/21/21 10:04 Dose: 81 mg Documented By: BENSON Clopidogrel Bisulfate (Clopidogrel Bisulfate 75 Mg Tablet) 75 mg PO DAILY [facility] Last Admin: 12/21/21 10:04 Dose: 75 mg Documented By: BENSON Furosemide (Furosemide 40 Mg Tablet) 40 mg PO DAILY [facility]; Protocol Last Admin: 12/21/21 10:03 Dose: 40 mg Documented By: YSABELENOYOAV Heparin Sodium (Porcine) (Heparin Sodium,Porcine 5,000 Unit/Ml Vial) 3,100 unit 40 unit/kg (3100 unit) IVPUSH PROTOCOL BOLUS PRN; Protocol PRN Reason: 40 unit/kg - Heparin Protocol Last Admin: 12/21/21 00:24 Dose: 3,100 unit Documented By: ANTOIC Heparin Sodium (Porcine) (Heparin Sodium,Porcine 5,000 Unit/Ml Vial) 6,200 unit 80 unit/kg (6200 unit) IVPUSH PROTOCOL BOLUS PRN; Protocol PRN Reason: 80 unit/kg - Heparin Protocol Ampicillin Sodium/Sulbactam (Sodium 1.5 gm/ Sodium Chloride) 100 mls @ 200 mls/hr IV Q8H [facility] Last Infusion: 12/21/21 11:22 Dose: 0 mls/hr Documented By: BENSON Heparin Sodium/Sodium Chloride () 25,000 unit in 250 mls @ 0 mls/hr IVCONT .Q0M SERGIO; Protocol Last Titration: 12/21/21 14:13 Dose: 0 units/kg/hr, 0 mls/hr Documented By: BENSON Co-signed By: BEAU Loratadine (Loratadine 10 Mg Tablet) 10 mg PO BEDTIME [facility] Last Admin: 12/20/21 21:44 Dose: 10 mg Documented By: ANTLUIS A Mirtazapine (Mirtazapine 30 Mg Tablet) 30 mg PO BEDTIME [facility] Last Admin: 12/20/21 21:44 Dose: 30 mg Documented By: ANTLUIS A Omeprazole (Omeprazole 20 Mg Capsule.) 20 mg PO DAILY [facility] Last Admin: 12/21/21 10:04 Dose: 20 mg Documented By: BENSON Ondansetron HCl (Ondansetron Hcl 4 Mg/2 Ml Vial) 4 mg IVPUSH Q8H PRN PRN Reason: Nausea and Vomiting Last Admin: 12/20/21 02:22 Dose: 4 mg Documented By: RICARDO Pharmacy Consult (Consult Rx Perform Med Rec) 1 each MISCELLANE ONCE PRN PRN Reason: Consult order Sodium Chloride (0.9 % Sodium Chloride Flush 3 Ml Syringe) 3 ml IVFLUSH QSHIFT [facility] Last Admin: 12/21/21 10:04 Dose: 3 ml Documented By: BENSON Thiamine HCl (Thiamine Hcl 100 Mg Tablet) 100 mg PO DAILY [facility] Last Admin: 12/21/21 10:03 Dose: 100 mg Documented By: BENSON Vitamin D (Cholecalciferol (Vitamin D3) 25 Mcg Tablet) 50 mcg PO DAILY [facility] Last Admin: 12/21/21 10:04 Dose: 50 mcg Documented By: BENSON Labs CBC & Chem 7: 12/21/21 05:45 12/21/21 05:45 Labs: Laboratory Results - last 24 hr 12/20/21 12/20/21 12/21/21 16:00 22:39 05:45 MCV 85.5 MCH 28.4 MCHC 33.2 RDW 14.1 Plt Count 144 L MPV 10.5 Absolute Nucleated RBC 0.000 Nucleated RBC % (auto) 0.0 aPTT Heparin Protocol 48.2 L 44.7 L Anion Gap Estim Creat Clear Calc Estimated GFR Random Glucose Calcium Total Bilirubin Direct Bilirubin AST ALT Alkaline Phosphatase Total Protein Albumin COVID-19 ([facility]) COVID-19 Clin Com 12/21/21 12/21/21 12/21/21 05:45 05:45 07:28 MCV MCH MCHC RDW Plt Count MPV Absolute Nucleated RBC Nucleated RBC % (auto) aPTT Heparin Protocol 53.2 Anion Gap 15 Estim Creat Clear Calc 28.9 Estimated GFR 31 Random Glucose 102 Calcium 8.5 D Total Bilirubin 1.2 H Direct Bilirubin 0.6 H AST 25 ALT 25 Alkaline Phosphatase 75 Total Protein 6.2 L Albumin 3.6 COVID-19 ([facility]) COVID-19 Clin Com 12/21/21 13:17 MCV MCH MCHC RDW Plt Count MPV Absolute Nucleated RBC Nucleated RBC % (auto) aPTT Heparin Protocol Anion Gap Estim Creat Clear Calc Estimated GFR Random Glucose Calcium Total Bilirubin Direct Bilirubin AST ALT Alkaline Phosphatase Total Protein Albumin COVID-19 ([facility]) Negative COVID-19 Clin Com See Note Microbiology Microbiology Results: Microbiology 12/18/21 14:45 Blood Culture - Preliminary Blood - Venous No growth after 48 hours. 12/18/21 14:35 Blood Culture - Preliminary Blood - Venous No growth after 48 hours. Procedures Date of Service Date of Service: 12/21/21 Progress Note: A&P Assessment and plan (1) Acute cholecystitis: Status: Acute Assessment and Plan: No abdominal tenderness, no Curiel sign No fever White count normal Clinically, no acute cholecystitis Rest of treatment as per primary service Time Spent With Patient Time: Total time spent is greater than 50% in coordination of care (as documented) at patient's floor/unit and/or counseling patient: Quality Stroke Does the patient have a stroke diagnosis?: No VTE Prior VTE?: No VTE Risk Level:: Medical - moderate - high VTE Device Contraindication: Treatment Not Indicated VTE Drug Contraindication: N/A - Med Ordered
--- NOTE | 2021-12-21 15:23 | MHC.CM.PN ---
Patient is medically cleared for discharge today. [facility] will transport patient to [facility] ([facility]). Detailed message left for patient's daughter, Anastasia at [phone], regarding discharge and 2nd IMM, original sent to Anastasia via certified mail and copy filed in patient's chart. Elissa, coordinator [facility] [phone], agreed for a 3pm discharge today. Per Elissa's request, Clinical documentation was faxed over to Amarjit Tanner RN at [phone]. (H&P, PN, Med List, Covid, GI Event note, Gen Surgery PN, and D/c summary.
--- NOTE | 2021-12-22 02:23 | CONS_ITS ---
DATE OF SERVICE: 12/21/2021 REASON FOR CONSULTATION: Abdominal pain, gallstones, and cirrhosis. HISTORY OF PRESENT ILLNESS: This has been obtained from the patient and the medical record. The patient is alert and oriented to person, place, and year, although does not recall the month. He does answer questions appropriately. The patient is a 76-year-old male admitted to the hospital on December 18 with abdominal pain and vomiting. His imaging studies revealed gallstones and what appeared to be some component of cholecystitis on the CT scan with evidence of some stranding of fat around the gallbladder. He was admitted for antibiotics. He was seen in consultation by Dr. Moreira, who did not feel the patient required definitive surgery and he recommended antibiotics. He felt that the question of cholecystitis was not definitive and he was a high risk for surgery, and therefore it was felt best to treat him conservatively. Since admission, he has remained on the antibiotics and has improved. At present, he denies any abdominal pain. He has been tolerating liquids without any difficulty. There has been no vomiting. There has been no diarrhea. There has been no evidence of any GI bleeding. In sitting with him today while he is having his clear liquid lunch, he is tolerating that easily and appears very comfortable. He has remained afebrile. The patient does have a previous history of long-standing alcohol use, but with sobriety for the past 2 or 3 years by his history. His imaging studies suggest a component of cirrhosis, but without any sign of liver mass. CURRENT MEDICATIONS: Here in the hospital include thiamine, Zofran, omeprazole, Remeron, Claritin, heparin, Lasix, clopidogrel, vitamin D, aspirin 81 mg, allopurinol, acetaminophen, ampicillin-sulbactam 1.5 g IV every 8 hours. PAST MEDICAL HISTORY: Prostatectomy for prostate cancer. Alcohol-induced cirrhosis. Some component of dementia. He did have a [id number] CA on this admission and was started on heparin. There is no reported history of diabetes, stroke, nor lung disease. PAST SURGICAL HISTORY: Prostatectomy. SOCIAL HISTORY: He currently lives at the [facility]. He presently does not smoke nor use alcohol. FAMILY HISTORY: Noncontributory. REVIEW OF SYSTEMS: CONSTITUTIONAL: He reports he is presently feeling well with good appetite. SKIN: He denies any rash. CARDIAC: He denies any chest pain. PULMONARY: He denies cough. No hemoptysis. GI: As above. PHYSICAL EXAMINATION: GENERAL: The patient is a pleasant elderly, alert male, in no distress. SKIN: Warm and dry. Anicteric sclerae. NECK: Supple. ABDOMEN: Soft, nondistended, nontender without palpable mass. LABORATORIES: He did have MRI and MRCP of the abdomen describing a fatty liver and probable cirrhosis, but without any focal liver lesion. The gallbladder appeared to be distended with some sludge and stones with a 3 mm gallbladder wall thickness with some mild edema. The common duct was 6 mm without any sign of choledocholithiasis. The pancreas appeared normal. There was some splenomegaly. There was no sign of ascites. White blood cell count 9.6, hemoglobin 13.5, platelets 144,000. PT was 13.5 with INR 1.2 on December 20. Normal electrolytes. BUN 36, creatinine 2.1 this morning. Total bilirubin went from 1.7 yesterday to 1.2 today. The direct bilirubin 0.6. AST, ALT, and alkaline phosphatase are normal. Albumin 3.6. IMPRESSION: At the present time, the patient appears very comfortable and appears well from a clinical standpoint. In regard to his admission issue of the abdominal pain and possible gallbladder disease, this seems to have resolved with antibiotics. The imaging studies are borderline in regard to the gallbladder and the gallbladder wall edema may also be in relation to chronic liver disease. In any event, I would agree with Dr. Moreira at this point to hold off on surgery given his benign abdominal exam, tolerance of his diet, and some increased operative risk in regard to his age, mental status, and underlying liver disease. If the gallbladder appears to continue to be a problem, then we may want to obtain a HIDA scan and then consider surgery at that time if need be. In regard to his liver disease, this appears to be quite well compensated at the present time with good synthetic liver function with a normal PT/INR, normal albumin, basically normal total bilirubin, and no evidence of any encephalopathy nor ascites. If he is going to be on a statin, which I do not have any particular objection to, then he should have a periodic liver profiles every 2 or 3 months to be sure things are stable. PLAN: I would recommend he stay on his PPI long-term particularly while on the blood thinners. I would definitely have him avoid all NSAIDs while on his blood thinners and low-dose aspirin. I think his diet can be advanced today. I would finish his course of antibiotics as per surgery. At this point, if things remain as they are, then I do not think he would need any further workup from a GI or liver standpoint. However, please contact me if I can be of any further assistance during the hospitalization. Thank you for the consultation. MD RYAN Fischer/LEAH / [id number] MTDD
== END 2021-12-21 15:56 | disposition skilled nursing facility (03) | DRG 177 ==
LOC: HO.ED 16:06 → HO.EDOVER 16:09 → HO.IMC 12-19 12:44
PROVIDERS: Internal Medicine; Physician Assistant; Admitting Provider Internal Medicine; Emergency Provider Emergency Medicine; PCP Internal Medicine; Visit Provider Student in an Organized Health Care Education/Training Program
DX: J69.0 Pneumonitis due to inhalation of food and vomit (principal); I21.A1 Myocardial infarction type 2; F10.27 Alcohol dependence with alcohol-induced persisting dementia; K81.0 Acute cholecystitis; F10.21 Alcohol dependence, in remission; K70.30 Alcoholic cirrhosis of liver without ascites; I25.10 Atherosclerotic heart disease of native coronary artery without angina pectoris; I49.3 Ventricular premature depolarization; Z66 Do not resuscitate; K22.70 Barrett's esophagus without dysplasia; I45.10 Unspecified right bundle-branch block; Z20.822 Contact with and (suspected) exposure to COVID-19; Z85.46 Personal history of malignant neoplasm of prostate; Z91.013 Allergy to seafood; Z88.8 Allergy status to other drugs, medicaments and biological substances; Z79.02 Long term (current) use of antithrombotics/antiplatelets; Z79.82 Long term (current) use of aspirin; Z79.899 Other long term (current) drug therapy
CPT/HCPCS: 36415; 71046; 74176; 74181; 80048; 80076; 81001; 83690; 83735; 83880; 84484; 85025; 85027; 85610; 85730; 87040; 87635; 93005; 93306; 93356; 96361; 96365; 96375; 99285; J0295; J1940; J2270; J2405; J2543; J2765

== ENCOUNTER 2021-12-25 06:50 | Outpatient (REF) | payer MEDICARE, SELFPAY ==
[2021-12-25 07:46] LABS: MANUAL DIFF FLAG NO
[2021-12-25 07:58] LABS: Basophils Absolute Auto 0.1 X10*3/uL (0.0-0.2); Basophils Percent Auto 0.6 % (0-2); Eosinophils Absolute Auto 0.2 X10*3/uL (0.0-0.4); Eosinophils Percent Auto 2.2 % (0-4); Hematocrit 46.3 % (42.0-52.0); Hemoglobin 15.4 g/dl (14.0-18.0); Imm Gran Abs Auto 0.12 X10*3/uL (0.00-0.03); Imm Gran Pct Auto 1.5 % (0.0-0.4); Lymphocytes Absolute Auto 2.3 X10*3/uL (1.2-4.9); Lymphocytes Percent Auto 28.9 % (20-40); Mean Corpuscular HGB Conc 33.3 g/dl (31.0-36.0); Mean Corpuscular Hemoglobin 28.3 pg (27.0-33.0); Mean Corpuscular Volume 85.1 fL (80.0-98.0); Mean Platelet Volume 10.7 fL (9.4-12.4); Monocytes Absolute Auto 0.8 X10*3/uL (0.1-1.2); Neutrophils Absolute Auto 4.5 x10*3/uL (2.0-8.3); Neutrophils Percent Auto 56.8 % (45-73); Platelet Count 242 X10*3/uL (160-400); Red Blood Count 5.44 X10*6/uL (4.60-5.80); Red Cell Distribution Width 13.6 % (11.0-16.0); White Blood Count 7.9 X10*3/uL (4.8-10.8)
[2021-12-25 08:24] LABS: Alanine Aminotransferase 18 U/L (0-40); Albumin Level 4.5 g/dL (3.5-5.0); Alkaline Phosphatase 119 U/L (39-117); Anion Gap 19 (12-20); Aspartate Amino Transferase 26 U/L (5-37); Bilirubin Direct 0.3 mg/dL (0.0-0.5); Bilirubin Total 0.7 mg/dL (0.0-1.0); Blood Urea Nitrogen 28 mg/dL (9-16); Calcium 9.3 mg/dL (8.4-10.2); Carbon Dioxide 25 mmol/L (22-29); Chloride 102 mmol/L (96-108); Estimated Glomerular Filt Rate 29; Glucose Fasting 103 mg/dL (60-99); Magnesium 2.5 mg/dL (1.6-2.6); Potassium 3.4 mmol/L (3.3-5.1); Sodium 143 mmol/L (135-145); Total Protein 7.8 g/dL (6.5-8.0)
[2021-12-25 08:29] LABS: B Type Natriuretic Peptide 131 pg/mL (<100)
== END 2021-12-25 06:51 | disposition home or self-care (01) ==
LOC: HO.HSH3W 06:50
PROVIDERS: Visit Provider Nurse Practitioner Acute Care
DX: I50.9 Heart failure, unspecified (principal); I25.10 Atherosclerotic heart disease of native coronary artery without angina pectoris
CPT/HCPCS: 36415; 80053; 80076; 82248; 83735; 83880; 85025

== ENCOUNTER 2022-01-01 10:13 | Outpatient (REF) | payer MEDICARE, SELFPAY ==
[2022-01-01 08:38] LABS: Anion Gap 16 (12-20); Carbon Dioxide 23 mmol/L (22-29); Chloride 106 mmol/L (96-108); Potassium 4.7 mmol/L (3.3-5.1); Sodium 140 mmol/L (135-145)
== END 2022-01-01 10:14 | disposition home or self-care (01) ==
LOC: HO.HSH3W 10:13
PROVIDERS: Visit Provider Nurse Practitioner
DX: I50.9 Heart failure, unspecified (principal)
CPT/HCPCS: 36415; 80051

== ENCOUNTER 2022-01-15 06:03 | Outpatient (REF) | payer MEDICARE, SELFPAY ==
[2022-01-15 08:43] LABS: Alanine Aminotransferase 14 U/L (0-40); Albumin Level 3.5 g/dL (3.5-5.0); Alkaline Phosphatase 113 U/L (39-117); Aspartate Amino Transferase 18 U/L (5-37); Bilirubin Direct 0.4 mg/dL (0.0-0.5); Bilirubin Total 0.8 mg/dL (0.0-1.0)
== END 2022-01-15 06:04 | disposition home or self-care (01) ==
LOC: HO.HSH3W 06:03
PROVIDERS: Visit Provider Nurse Practitioner
DX: I25.10 Atherosclerotic heart disease of native coronary artery without angina pectoris (principal)
CPT/HCPCS: 36415; 80076

== ENCOUNTER 2022-01-21 10:12 | Outpatient (REF) | payer MEDICARE, SELFPAY ==
[2022-01-21 11:16] LABS: MANUAL DIFF FLAG NO
[2022-01-21 11:27] LABS: Basophils Absolute Auto 0.1 X10*3/uL (0.0-0.2); Basophils Percent Auto 0.6 % (0-2); Eosinophils Percent Auto 0.2 % (0-4); Hematocrit 40.8 % (42.0-52.0); Hemoglobin 13.6 g/dl (14.0-18.0); Imm Gran Abs Auto 0.08 X10*3/uL (0.00-0.03); Lymphocytes Absolute Auto 1.2 X10*3/uL (1.2-4.9); Lymphocytes Percent Auto 14.3 % (20-40); Mean Corpuscular HGB Conc 33.3 g/dl (31.0-36.0); Mean Corpuscular Hemoglobin 27.6 pg (27.0-33.0); Mean Corpuscular Volume 82.8 fL (80.0-98.0); Mean Platelet Volume 9.9 fL (9.4-12.4); Monocytes Absolute Auto 1.1 X10*3/uL (0.1-1.2); Neutrophils Absolute Auto 5.6 x10*3/uL (2.0-8.3); Neutrophils Percent Auto 69.9 % (45-73); Platelet Count 199 X10*3/uL (160-400); Red Blood Count 4.93 X10*6/uL (4.60-5.80); Red Cell Distribution Width 13.5 % (11.0-16.0); White Blood Count 8.1 X10*3/uL (4.8-10.8)
[2022-01-21 11:47] LABS: Alanine Aminotransferase 139 U/L (0-40); Albumin Level 3.3 g/dL (3.5-5.0); Alkaline Phosphatase 225 U/L (39-117); Anion Gap 17 (12-20); Aspartate Amino Transferase 159 U/L (5-37); Bilirubin Total 0.5 mg/dL (0.0-1.0); Blood Urea Nitrogen 49 mg/dL (9-16); Calcium 8.6 mg/dL (8.4-10.2); Carbon Dioxide 24 mmol/L (22-29); Chloride 102 mmol/L (96-108); Estimated Glomerular Filt Rate 27; Glucose Random 122 mg/dL (60-115); Lipase 84 U/L (8-78); Potassium 4.4 mmol/L (3.3-5.1); Sodium 139 mmol/L (135-145); Total Protein 5.9 g/dL (6.5-8.0)
== END 2022-01-21 10:13 | disposition home or self-care (01) ==
LOC: HO.HSH 10:12
PROVIDERS: Visit Provider Internal Medicine Medical Oncology
DX: R19.7 Diarrhea, unspecified (principal); R11.10 Vomiting, unspecified
CPT/HCPCS: 36415; 80053; 83690; 84134; 85025

== ENCOUNTER 2022-01-22 05:46 | Outpatient (REF) | payer MEDICARE, SELFPAY ==
[2022-01-22 08:38] LABS: Anion Gap 18 (12-20); Blood Urea Nitrogen 45 mg/dL (9-16); Carbon Dioxide 25 mmol/L (22-29); Chloride 103 mmol/L (96-108); Estimated Glomerular Filt Rate 29; Glucose Random 114 mg/dL (60-115); Potassium 4.6 mmol/L (3.3-5.1); Sodium 141 mmol/L (135-145)
== END 2022-01-22 05:47 | disposition home or self-care (01) ==
LOC: HO.HSH3W 05:46
PROVIDERS: Visit Provider Internal Medicine Interventional Cardiology
DX: N18.4 Chronic kidney disease, stage 4 (severe) (principal); E87.6 Hypokalemia
CPT/HCPCS: 36415; 80048

== ENCOUNTER → 2022-01-31 14:33 | Outpatient (BNVA) | payer MEDICARE, SELFPAY | PROVIDERS: PCP Internal Medicine; Visit Provider Nurse Practitioner Family | DX: I21.4 Non-ST elevation (NSTEMI) myocardial infarction (principal); I50.20 Unspecified systolic (congestive) heart failure; K74.60 Unspecified cirrhosis of liver; N18.9 Chronic kidney disease, unspecified; K81.0 Acute cholecystitis | CPT/HCPCS: 99212 ==

== ENCOUNTER 2022-02-07 05:55 | Outpatient (REF) | payer MEDICARE, SELFPAY ==
[2022-02-07 06:57] LABS: Alanine Aminotransferase 34 U/L (0-40); Albumin Level 3.3 g/dL (3.5-5.0); Alkaline Phosphatase 192 U/L (39-117); Anion Gap 15 (12-20); Aspartate Amino Transferase 22 U/L (5-37); Bilirubin Direct 0.4 mg/dL (0.0-0.5); Bilirubin Total 0.6 mg/dL (0.0-1.0); Blood Urea Nitrogen 16 mg/dL (9-16); Calcium 8.4 mg/dL (8.4-10.2); Carbon Dioxide 22 mmol/L (22-29); Chloride 106 mmol/L (96-108); Estimated Glomerular Filt Rate 41; Glucose Random 84 mg/dL (60-115); Potassium 4.8 mmol/L (3.3-5.1); Sodium 138 mmol/L (135-145); Total Protein 5.8 g/dL (6.5-8.0)
== END 2022-02-07 05:56 | disposition home or self-care (01) ==
LOC: HO.HSH3W 05:55
PROVIDERS: Visit Provider Internal Medicine Interventional Cardiology
DX: R79.89 Other specified abnormal findings of blood chemistry (principal); K74.60 Unspecified cirrhosis of liver; N18.4 Chronic kidney disease, stage 4 (severe)
CPT/HCPCS: 36415; 80048; 80076

== ENCOUNTER 2022-02-16 13:50 | Outpatient (REF) | payer MEDICARE, SELFPAY | END 2022-02-16 13:51 | disposition home or self-care (01) | LOC: HO.HSH3W 13:50 | PROVIDERS: Visit Provider Internal Medicine Interventional Cardiology | DX: M10.9 Gout, unspecified (principal) | CPT/HCPCS: 36415; 84550 ==

== ENCOUNTER 2022-03-15 06:01 | Outpatient (REF) | payer MEDICARE, SELFPAY ==
[2022-03-15 07:45] LABS: MANUAL DIFF FLAG NO
[2022-03-15 07:50] LABS: Basophils Percent Auto 0.6 % (0-2); Eosinophils Absolute Auto 0.2 X10*3/uL (0.0-0.4); Eosinophils Percent Auto 4.8 % (0-4); Hematocrit 39.2 % (42.0-52.0); Hemoglobin 12.6 g/dl (14.0-18.0); Imm Gran Abs Auto 0.03 X10*3/uL (0.00-0.03); Imm Gran Pct Auto 0.6 % (0.0-0.4); Lymphocytes Absolute Auto 1.8 X10*3/uL (1.2-4.9); Lymphocytes Percent Auto 34.9 % (20-40); Mean Corpuscular HGB Conc 32.1 g/dl (31.0-36.0); Mean Corpuscular Hemoglobin 27.6 pg (27.0-33.0); Mean Platelet Volume 10.7 fL (9.4-12.4); Monocytes Absolute Auto 0.6 X10*3/uL (0.1-1.2); Monocytes Percent Auto 11.9 % (2-11); Neutrophils Absolute Auto 2.4 x10*3/uL (2.0-8.3); Neutrophils Percent Auto 47.2 % (45-73); Platelet Count 151 X10*3/uL (160-400); Red Blood Count 4.56 X10*6/uL (4.60-5.80); Red Cell Distribution Width 15.3 % (11.0-16.0)
[2022-03-15 08:14] LABS: Alanine Aminotransferase 11 U/L (0-40); Albumin Level 3.8 g/dL (3.5-5.0); Alkaline Phosphatase 95 U/L (39-117); Anion Gap 15 (12-20); Aspartate Amino Transferase 17 U/L (5-37); Bilirubin Total 0.8 mg/dL (0.0-1.0); Blood Urea Nitrogen 17 mg/dL (9-16); Calcium 8.9 mg/dL (8.4-10.2); Carbon Dioxide 25 mmol/L (22-29); Chloride 108 mmol/L (96-108); Estimated Glomerular Filt Rate 40; Glucose Fasting 83 mg/dL (60-99); Sodium 143 mmol/L (135-145); Total Protein 6.4 g/dL (6.5-8.0); Uric Acid 9.8 mg/dL (3.4-7.0)
== END 2022-03-15 06:02 | disposition home or self-care (01) ==
LOC: HO.HSH3W 06:01
PROVIDERS: Visit Provider Internal Medicine
DX: M10.9 Gout, unspecified (principal); N18.9 Chronic kidney disease, unspecified; R79.89 Other specified abnormal findings of blood chemistry
CPT/HCPCS: 36415; 80053; 84550; 85025

== ENCOUNTER 2022-04-22 09:56 | Outpatient (REF) | payer MEDICARE, SELFPAY ==
[2022-04-22 10:18] LABS: Anion Gap 16 (12-20); Blood Urea Nitrogen 20 mg/dL (9-16); Calcium 9.2 mg/dL (8.4-10.2); Carbon Dioxide 22 mmol/L (22-29); Chloride 105 mmol/L (96-108); Estimated Glomerular Filt Rate 40; Glucose Random 103 mg/dL (60-115); Potassium 4.4 mmol/L (3.3-5.1); Sodium 139 mmol/L (135-145)
== END 2022-04-22 09:57 | disposition home or self-care (01) ==
LOC: HO.HSH3W 09:56
PROVIDERS: Visit Provider Internal Medicine
DX: N18.9 Chronic kidney disease, unspecified (principal); D63.1 Anemia in chronic kidney disease
CPT/HCPCS: 36415; 80048

== ENCOUNTER 2022-04-23 05:42 | Outpatient (REF) | payer MEDICARE, SELFPAY ==
[2022-04-23 07:36] LABS: MANUAL DIFF FLAG NO
[2022-04-23 07:40] LABS: Basophils Percent Auto 0.3 % (0-2); Eosinophils Percent Auto 0.2 % (0-4); Hemoglobin 11.6 g/dl (14.0-18.0); Imm Gran Abs Auto 0.03 X10*3/uL (0.00-0.03); Imm Gran Pct Auto 0.5 % (0.0-0.4); Lymphocytes Absolute Auto 1.2 X10*3/uL (1.2-4.9); Lymphocytes Percent Auto 19.4 % (20-40); Mean Corpuscular HGB Conc 33.1 g/dl (31.0-36.0); Mean Corpuscular Hemoglobin 28.2 pg (27.0-33.0); Mean Platelet Volume 11.2 fL (9.4-12.4); Monocytes Absolute Auto 0.8 X10*3/uL (0.1-1.2); Neutrophils Percent Auto 66.6 % (45-73); Platelet Count 123 X10*3/uL (160-400); Red Blood Count 4.12 X10*6/uL (4.60-5.80); Red Cell Distribution Width 14.6 % (11.0-16.0)
[2022-04-23 08:01] LABS: Alanine Aminotransferase 14 U/L (0-40); Albumin Level 3.6 g/dL (3.5-5.0); Alkaline Phosphatase 76 U/L (39-117); Anion Gap 14 (12-20); Aspartate Amino Transferase 18 U/L (5-37); Bilirubin Total 1.2 mg/dL (0.0-1.0); Blood Urea Nitrogen 19 mg/dL (9-16); Calcium 8.7 mg/dL (8.4-10.2); Carbon Dioxide 21 mmol/L (22-29); Chloride 105 mmol/L (96-108); Estimated Glomerular Filt Rate 41; Glucose Fasting 87 mg/dL (60-99); Lipase 21 U/L (8-78); Sodium 136 mmol/L (135-145); Total Protein 6.1 g/dL (6.5-8.0)
== END 2022-04-23 05:43 | disposition home or self-care (01) ==
LOC: HO.HSH1N 05:42
PROVIDERS: Visit Provider Internal Medicine
DX: U07.1 COVID-19 (principal); R11.10 Vomiting, unspecified
CPT/HCPCS: 36415; 80053; 83690; 85025

== ENCOUNTER 2022-04-30 05:50 | Outpatient (REF) | payer MEDICARE, SELFPAY ==
[2022-04-30 08:36] LABS: Anion Gap 12 (12-20); Blood Urea Nitrogen 21 mg/dL (9-16); Calcium 8.7 mg/dL (8.4-10.2); Carbon Dioxide 26 mmol/L (22-29); Chloride 107 mmol/L (96-108); Estimated Glomerular Filt Rate 45; Glucose Fasting 89 mg/dL (60-99); Potassium 4.5 mmol/L (3.3-5.1); Sodium 140 mmol/L (135-145); Uric Acid 7.6 mg/dL (3.4-7.0)
== END 2022-04-30 05:51 | disposition home or self-care (01) ==
LOC: HO.HSH3W 05:50
PROVIDERS: Visit Provider Internal Medicine
DX: N18.9 Chronic kidney disease, unspecified (principal); M10.9 Gout, unspecified
CPT/HCPCS: 36415; 80048; 84550

== ENCOUNTER 2022-05-14 10:29 | Outpatient (REF) | payer MEDICARE, SELFPAY ==
[2022-05-14 08:53] LABS: Uric Acid 8.9 mg/dL (3.4-7.0)
== END 2022-05-14 10:30 | disposition home or self-care (01) ==
LOC: HO.HSH3W 10:29
PROVIDERS: Visit Provider Nurse Practitioner
DX: M10.9 Gout, unspecified (principal)
CPT/HCPCS: 36415; 84550

== ENCOUNTER → 2022-06-06 13:33 | Outpatient (BNVA) | payer MEDICARE, SELFPAY | PROVIDERS: PCP Internal Medicine; Visit Provider Internal Medicine | DX: I25.10 Atherosclerotic heart disease of native coronary artery without angina pectoris (principal); I21.4 Non-ST elevation (NSTEMI) myocardial infarction | CPT/HCPCS: 99212 ==

== ENCOUNTER 2022-07-20 06:19 | Outpatient (REF) | payer MEDICARE, SELFPAY ==
[2022-07-20 07:06] LABS: Uric Acid 7.8 mg/dL (3.4-7.0)
== END 2022-07-20 06:20 | disposition home or self-care (01) ==
LOC: HO.HSH3W 06:19
PROVIDERS: Visit Provider Nurse Practitioner Acute Care
DX: M10.9 Gout, unspecified (principal)
CPT/HCPCS: 36415; 84550

== ENCOUNTER 2022-07-20 09:50 | Emergency (ER) | payer OTHER, MEDICARE, SELFPAY ==
--- NOTE | ~2022-07-20 | XR_ITS ---
EXAMINATION: XR CHEST CLINICAL INFORMATION: Chest pain COMPARISON: 12/18/2021 TECHNIQUE: Frontal view of the chest was obtained. FINDINGS: Normal symmetric lung volumes. Chronic lung markings. No parenchymal consolidation. No pleural effusion. No pneumothorax. Cardiomediastinal silhouette and pulmonary vascularity are within normal limits. No acute osseous abnormalities. XR/XR chest 1V IMPRESSION: No discrete consolidation.
[2022-07-20 10:02] VITALS: BP 136/63; PULSE 68; RESP 16; TEMP 36.8; O2SAT 92; BMI 24.4
--- NOTE | 2022-07-20 10:02 | ECG_ITS ---
Test Reason : cp resolved Blood Pressure : / mmHG Vent. Rate : 067 BPM Atrial Rate : 067 BPM P-R Int : 376 ms QRS Dur : 120 ms QT Int : 458 ms P-R-T Axes : 053 021 -01 degrees QTc Int : 483 ms Sinus rhythm with 1st degree A-V block with occasional Premature ventricular complexes Right bundle branch block Abnormal ECG When compared with ECG of 20-DEC-2021 00:03, Premature ventricular complexes are now Present T wave inversion no longer evident in Anterior leads Referred By: Generic ED Physician Electronically Signed By:MONICA FRIAS
[2022-07-20 11:00] LABS: MANUAL DIFF FLAG NO
[2022-07-20 11:03] LABS: Basophils Percent Auto 0.2 % (0-2); Eosinophils Absolute Auto 0.1 X10*3/uL (0.0-0.4); Eosinophils Percent Auto 0.9 % (0-4); Hematocrit 41.8 % (42.0-52.0); Hemoglobin 13.7 g/dl (14.0-18.0); Imm Gran Abs Auto 0.04 X10*3/uL (0.00-0.03); Imm Gran Pct Auto 0.5 % (0.0-0.4); Lymphocytes Absolute Auto 1.5 X10*3/uL (1.2-4.9); Mean Corpuscular HGB Conc 32.8 g/dl (31.0-36.0); Mean Corpuscular Hemoglobin 27.8 pg (27.0-33.0); Monocytes Absolute Auto 0.8 X10*3/uL (0.1-1.2); Monocytes Percent Auto 9.4 % (2-11); Platelet Count 169 X10*3/uL (160-400); Red Blood Count 4.92 X10*6/uL (4.60-5.80); Red Cell Distribution Width 15.1 % (11.0-16.0); White Blood Count 8.4 X10*3/uL (4.8-10.8)
--- NOTE | 2022-07-20 11:09 | ED_ITS ---
HPI - Chest Pain General Chief Complaint: Chest Pain Stated Complaint: CP Time Seen by Provider: 07/20/22 10:36 Source: patient and RN notes reviewed Mode of arrival: EMS Limitations: no limitations History of Present Illness HPI narrative: This is a 76-year-old male with a past medical history of NSTEMI, dementia, cirrhosis, Hoffman's esophagus, and malignant neoplasm of prostate status post radical prostatectomy, presenting to the emergency department via EMS from the [facility], with complaint of one episode of midsternal chest pain that occurred at 03:00AM this morning. Patient reports that the pain woke him up while he was sleeping. He describes this chest pain aching and midsternal that was constant but did not radiate. He reports that he was seen by one of the nurses due to pain, and was given 4 baby aspirins, and was transferred to [facility] further evaluation. He reports that since taking the aspirin, his symptoms have completely resolved, and is feeling well. He denies any shortness of breath at the time of the chest pain. Patient denies any current shortness of breath, chest pains, palpitations, nausea, vomiting, diarrhea or abdominal pain. Patient was previously admitted to [facility] in January 2022 for acute cholecystitis and was found to have elevated troponins consistent demand NSTEMI. The echo at that time had an EF 45% with regional wall motion abnormality suggesting CAD. He has been managed by his mobile application development lead, Dr. Cordon. complaint: chest pain Pertinent past history: prior [place] Onset (ago): hour(s) Timing of current episode: episodic and now resolved Prior episodes: Yes Onset: awoke with symptoms Pain location: substernal Pain radiation: none Severity: similar to previous episodes Quality: tightness, aching and similar to prior [place] Relieving factors: medication-other (Aspirin) Exacerbating factors: nothing Treatment prior to arrival: aspirin Risk Factors Coronary artery disease risk factors: none Thoracic aortic dissection risk factors: none Related Data Home Medications Medication Instructions Recorded Confirmed allopurinol 100 mg tablet 50 mg PO Q2D 12/18/21 06/06/22 aspirin 81 mg chewable tablet 81 mg PO DAILY 12/18/21 06/06/22 cholecalciferol (vitamin D3) 50 50 mcg PO DAILY 12/18/21 06/06/22 mcg (2,000 unit) tablet loratadine 10 mg tablet 10 mg PO BEDTIME 12/18/21 06/06/22 pantoprazole 40 mg tablet,delayed 40 mg PO DAILY 12/18/21 06/06/22 release thiamine HCl (vitamin B1) 100 mg 100 mg PO DAILY 12/18/21 06/06/22 tablet tramadol 50 mg tablet 50 mg PO Q12H PRN pain 12/18/21 06/06/22 metoprolol succinate 25 mg 25 mg PO DAILY 01/31/22 06/06/22 tablet,extended release 24 hr mirtazapine 30 mg tablet 30 mg PO BEDTIME 01/31/22 06/06/22 acetaminophen 325 mg capsule 650 mg PO Q6H PRN 06/06/22 06/06/22 colchicine 0.6 mg capsule 0.6 mg PO BID 06/06/22 06/06/22 loperamide 2 mg capsule 2 mg PO Q6H PRN 06/06/22 06/06/22 Allergies Allergy/AdvReac Type Severity Reaction Status Date / Time lisinopril [LISINOPRIL] Allergy Mild UNKNOWN Verified 06/06/22 13:45 baclofen [BACLOFEN] Allergy Unknown UNKNOWN Verified 06/06/22 13:45 shellfish derived Allergy Unknown UNKNOWN Verified 06/06/22 13:45 [SHELLFISH DERIVED] Review of Systems Review of Systems: Yes all other systems are reviewed and are negative [facility] Past Medical History Medical History Hoffman esophagus Cirrhosis of liver CKD (chronic kidney disease) Dementia Diverticulitis Malignant neoplasm of prostate New onset of congestive heart failure Surgical History H/O radical prostatectomy Family History Family History Father CAD (coronary artery disease) Social History Social History Housing: Assisted Living Facility Alcohol intake: former Patient Tobacco Use Status: Never used Tobacco Advance Directives: Yes Advance Directives on File: Yes Advance Directives Date on File: 12/22/21 service: Yes Current occupational status: retired Physical Exam Vital Signs: Vital Signs: Last Vital Signs Temp 98.2 F 07/20/22 10:02 Pulse 64 02/24/23 11:45 Resp 12 07/20/22 11:45 BP 131/81 07/20/22 11:45 Pulse Ox 92 07/20/22 10:02 O2 Del Method 07/20/22 10:02 BMI result Body Mass Index 24.4 Appearance: Alert. Oriented X3. No acute distress. Resting comfortably in stretcher. Eyes: Pupils equal, round and reactive to light. ENT: Pharynx normal. Neck: Normal inspection. Neck supple. CVS: Normal heart rate and rhythm. Pulses normal. No chest wall tenderness to palpation. Respiratory: No respiratory distress. Breath sounds normal. Abdomen: Soft and nontender. +BS x4 Skin: Skin warm and dry. Normal skin color. Normal skin turgor. No rashes. Extremities: No lower extremity edema. Neuro: Oriented X 3. No motor deficit. No sensory deficit. Course Course Course Narrative: This is a 76-year-old male with a past medical history of NSTEMI, dementia, cirrhosis, Hoffman's esophagus, and malignant neoplasm of prostate status post radical prostatectomy, presenting to the emergency department via EMS from the [facility], with complaint of one episode of midsternal chest pain that occurred at 03:00AM this morning. Plan: EKG, labs, COVID swab, cardiac enzymes ordered. Reevaluation(s) Reevaluation #1: BP elevated at 196/63. [facility], he has received his daily dose of metoprolol, but due to persistent HTN, will medicate with metoprolol PO. Troponin only 11.8 which is reassuring against ACS. prior troponins in the 100- 200 range when admitted for NSTEMI. he remains chest pain free. Time: 12:04 Reevaluation #2: Blood pressure improved to 160s systolically. Chest x-ray reviewed by me with no evidence of pneumonia. [facility], advised to f/u with PCP. Time: 13:33 Medications Administered Discontinued Medications Generic Name Dose Route Start Last Admin Trade Name Freq PRN Reason Stop Dose Admin Metoprolol Tartrate 25 mg 07/20/22 11:55 07/20/22 12:17 Metoprolol Tartrate 25 Mg Tablet PO 07/20/22 11:56 25 mg ONCE ONE Administration Protocol Medical Decision Making Medical Decision Making MDM Narrative: This is a 76-year-old male with a past medical history of NSTEMI, dementia, cirrhosis, Hoffman's esophagus, and malignant neoplasm of prostate status post radical prostatectomy, presenting to the emergency department via EMS from the [facility], with complaint of one episode of midsternal chest pain that o ccurred at 03:00AM this morning. EKG with no acute ischemic changes, troponin within all other labs reassuring. Blood pressure improved, if patient remains asymptomatic. Patient is stable to return back to [facility] and follow-up with primary care physician as needed. Advised to return with any new or worsening symptoms. Differential Diagnosis Differential Diagnoses: The differential diagnosis associated with the presentation includes NSTEMI, STEMI, ACS, atypical chest pain, PE less likely, gastritis Admission/Observation Consideration of admission/observation: Escalation of care including admission/observation considered possible NSTEMI with known cardiac risk factors and CAD but he has been medically managed no indication for inpatient level of care at this time Lab Data [facility] Lab Attestation statement: I reviewed the patient's lab results. 07/20/22 10:55 07/20/22 10:55 Labs: Lab Results 07/20/22 07/20/22 07/20/22 Range/Units 10:55 10:55 10:55 WBC 8.4 (4.8-10.8) X10*3/uL RBC 4.92 (4.60-5.80) X10*6/uL Hgb 13.7 L (14.0-18.0) g/dl Hct 41.8 L (42.0-52.0) % MCV 85.0 (80.0-98.0) fL MCH 27.8 (27.0-33.0) pg MCHC 32.8 (31.0-36.0) g/dl RDW 15.1 (11.0-16.0) % Plt Count 169 D (160-400) X10*3/uL MPV 10.0 (9.4-12.4) fL Immature Gran % (Auto) 0.5 H (0.0-0.4) % Neut % (Auto) 71.0 (45-73) % Lymph % (Auto) 18.0 L (20-40) % [place] % (Auto) 9.4 (2-11) % Eos % (Auto) 0.9 (0-4) % Baso % (Auto) 0.2 (0-2) % Lymph # (Auto) 1.5 (1.2-4.9) X10*3/uL [place] # (Auto) 0.8 (0.1-1.2) X10*3/uL Eos # (Auto) 0.1 (0.0-0.4) X10*3/uL Baso # (Auto) 0.0 (0.0-0.2) X10*3/uL Abs Immat Gran (auto) 0.04 H (0.00-0.03) X10*3/uL Absolute Neuts (auto) 6.0 (2.0-8.3) x10*3/uL Absolute Nucleated RBC 0.000 (0.0-0.012) X10*3/uL Nucleated RBC % (auto) 0.0 (0.0-0.2) /100WBC Sodium 140 (135-145) mmol/L Potassium 4.7 (3.3-5.1) mmol/L Chloride 106 (96-108) mmol/L Carbon Dioxide 24 (22-29) mmol/L Anion Gap 15 (12-20) BUN 19 H (9-16) mg/dL Creatinine 1.73 H (0.5-1.4) mg/dL Estim Creat Clear Calc 35.1 Estimated GFR 38 Random Glucose 120 H (60-115) mg/dL Calcium 9.1 (8.4-10.2) mg/dL Total Bilirubin 1.2 H (0.0-1.0) mg/dL AST 14 (5-37) U/L ALT 10 (0-40) U/L Alkaline Phosphatase 86 (39-117) U/L Troponin I High Sens 11.8 (<3.5-35.0) ng/L Total Protein 7.1 (6.5-8.0) g/dL Albumin 4.1 (3.5-5.0) g/dL Influenza Type A (PCR) (Negative) Influenza Type B (PCR) (Negative) RSV RNA Qual (PCR) (Negative) SARS-CoV-2 RNA (RT-PCR) (Negative) 07/20/22 Range/Units 10:55 WBC (4.8-10.8) X10*3/uL RBC (4.60-5.80) X10*6/uL Hgb (14.0-18.0) g/dl Hct (42.0-52.0) % MCV (80.0-98.0) fL MCH (27.0-33.0) pg MCHC (31.0-36.0) g/dl RDW (11.0-16.0) % Plt Count (160-400) X10*3/uL MPV (9.4-12.4) fL Immature Gran % (Auto) (0.0-0.4) % Neut % (Auto) (45-73) % Lymph % (Auto) (20-40) % [place] % (Auto) (2-11) % Eos % (Auto) (0-4) % Baso % (Auto) (0-2) % Lymph # (Auto) (1.2-4.9) X10*3/uL [place] # (Auto) (0.1-1.2) X10*3/uL Eos # (Auto) (0.0-0.4) X10*3/uL Baso # (Auto) (0.0-0.2) X10*3/uL Abs Immat Gran (auto) (0.00-0.03) X10*3/uL Absolute Neuts (auto) (2.0-8.3) x10*3/uL Absolute Nucleated RBC (0.0-0.012) X10*3/uL Nucleated RBC % (auto) (0.0-0.2) /100WBC Sodium (135-145) mmol/L Potassium (3.3-5.1) mmol/L Chloride (96-108) mmol/L Carbon Dioxide (22-29) mmol/L Anion Gap (12-20) BUN (9-16) mg/dL Creatinine (0.5-1.4) mg/dL Estim Creat Clear Calc Estimated GFR Random Glucose (60-115) mg/dL Calcium (8.4-10.2) mg/dL Total Bilirubin (0.0-1.0) mg/dL AST (5-37) U/L ALT (0-40) U/L Alkaline Phosphatase (39-117) U/L Troponin I High Sens (<3.5-35.0) ng/L Total Protein (6.5-8.0) g/dL Albumin (3.5-5.0) g/dL Influenza Type A (PCR) NEGATIVE (Negative) Influenza Type B (PCR) NEGATIVE (Negative) RSV RNA Qual (PCR) NEGATIVE (Negative) SARS-CoV-2 RNA (RT-PCR) NEGATIVE (Negative) Independent Interpretation I performed an independent interpretation of an: EKG and Plain X-Ray Interpretation: Sinus rhythm with a ventricular rate of 67BPM with 1st degree A-V block and occasional premature ventricular complexes. QTC 483ms , CT interval 376ms. Right branch bundle block noted, seen on previous. No significant changes from EKG performed Dec 2021. No ST-elevation elevation or depression. I reviewed with the Chest x-ray with no acute pneumonia or evidence of CHF. Independent Historian Clinical information obtained from an independent historian. History obtained from or confirmed by: EMS External Record Review External record reviewed: Inpatient record, Office record, Outpatient record and Prior outpatient labs Prescription Management I considered prescription management with: Pain Medication Chronic Conditions Patient?s care impacted by: Hypertension Scores Heart Score History: -0- slightly suspicious Critical Care Time Critical Care Time Critical Care Time: No Discharge Plan Discharge Clinical Impression: Chest pain Patient Disposition: Xfer SNF Transfer Details: [facility] Instructions: Noncardiac Chest Pain (ED) Additional Instructions: Your labwork was reassuring with no evidence of stress on your heart. Follow up with your primary care physician and mobile application development lead. If you develop new or worsening symptoms call 911 or come back to the ER for fu rther evaluation. Prescriptions: No Action thiamine HCl (vitamin B1) 100 mg Tablet 100 mg PO DAILY allopurinol 100 mg Tablet 50 mg PO Q2D pantoprazole 40 mg Tablet,Delayed Release (Dr/Ec) 40 mg PO DAILY aspirin 81 mg Tablet,Chewable 81 mg PO DAILY loratadine 10 mg Tablet 10 mg PO BEDTIME cholecalciferol (vitamin D3) 50 mcg (2,000 unit) Tablet 50 mcg PO DAILY tramadol 50 mg tablet 50 mg PO Q12H PRN (Reason: pain) metoprolol succinate 25 mg tablet extended release 24 hr 25 mg PO DAILY mirtazapine 30 mg tablet 30 mg PO BEDTIME colchicine 0.6 mg capsule 0.6 mg PO BID loperamide 2 mg capsule 2 mg PO Q6H PRN acetaminophen 325 mg capsule 650 mg PO Q6H PRN
[2022-07-20 11:15] LABS: Alanine Aminotransferase 10 U/L (0-40); Albumin Level 4.1 g/dL (3.5-5.0); Alkaline Phosphatase 86 U/L (39-117); Anion Gap 15 (12-20); Aspartate Amino Transferase 14 U/L (5-37); Bilirubin Total 1.2 mg/dL (0.0-1.0); Blood Urea Nitrogen 19 mg/dL (9-16); Calcium 9.1 mg/dL (8.4-10.2); Carbon Dioxide 24 mmol/L (22-29); Chloride 106 mmol/L (96-108); Creatinine Clr Calc Pharmacy 35.1; Estimated Glomerular Filt Rate 38; Glucose Random 120 mg/dL (60-115); Potassium 4.7 mmol/L (3.3-5.1); Sodium 140 mmol/L (135-145); Total Protein 7.1 g/dL (6.5-8.0)
[2022-07-20 11:22] LABS: Troponin-I High Sensitivity 11.8 ng/L (<3.5-35.0)
[2022-07-20 11:43] LABS: Influenza A PCR NEGATIVE (Negative); Influenza B PCR NEGATIVE (Negative); Resp Syncy Virus RNA Qual PCR NEGATIVE (Negative); SARS COV2 PCR INHOUSE NEGATIVE (Negative)
[2022-07-20 11:45] VITALS: BP 131/81; PULSE 64; RESP 12
[2022-07-20] MEDS: Metoprolol Tartrate 25 MG TABLET PO (12:17)
--- NOTE | 2022-07-20 14:09 | PC.NURSE ---
daughter and sh updated. pt returning now.
== END 2022-07-20 14:11 | disposition skilled nursing facility (03) ==
PROVIDERS: Emergency Provider Student in an Organized Health Care Education/Training Program; PCP Internal Medicine
DX: R07.89 Other chest pain (principal); Z79.899 Other long term (current) drug therapy; Z20.822 Contact with and (suspected) exposure to COVID-19; Z20.828 Contact with and (suspected) exposure to other viral communicable diseases
CPT/HCPCS: 0241U; 71045; 80053; 84484; 85025; 93005; 99283; 99284

== ENCOUNTER 2022-09-07 05:28 | Outpatient (REF) | payer MEDICARE, SELFPAY ==
[2022-09-07 08:13] LABS: Alanine Aminotransferase 11 U/L (0-40); Albumin Level 3.7 g/dL (3.5-5.0); Alkaline Phosphatase 95 U/L (39-117); Anion Gap 14 (12-20); Aspartate Amino Transferase 11 U/L (5-37); Bilirubin Direct 0.1 mg/dL (0.0-0.5); Bilirubin Total 0.4 mg/dL (0.0-1.0); Blood Urea Nitrogen 20 mg/dL (9-16); Carbon Dioxide 24 mmol/L (22-29); Chloride 113 mmol/L (96-108); Estimated Glomerular Filt Rate 27; Potassium 4.5 mmol/L (3.3-5.1); Sodium 146 mmol/L (135-145); Total Protein 6.2 g/dL (6.5-8.0)
== END 2022-09-07 05:29 | disposition home or self-care (01) ==
LOC: HO.HSH3W 05:28
PROVIDERS: Visit Provider Nurse Practitioner Acute Care
DX: I10 Essential (primary) hypertension (principal); I25.10 Atherosclerotic heart disease of native coronary artery without angina pectoris
CPT/HCPCS: 36415; 80051; 80076; 82565; 84520

== ENCOUNTER 2022-09-24 06:01 | Outpatient (REF) | payer MEDICARE, SELFPAY ==
[2022-09-24 06:29] LABS: Anion Gap 12 (12-20); Blood Urea Nitrogen 14 mg/dL (9-16); Calcium 8.8 mg/dL (8.4-10.2); Carbon Dioxide 23 mmol/L (22-29); Chloride 110 mmol/L (96-108); Estimated Glomerular Filt Rate 35; Glucose Random 93 mg/dL (60-115); Potassium 4.4 mmol/L (3.3-5.1); Sodium 141 mmol/L (135-145)
== END 2022-09-24 06:02 | disposition home or self-care (01) ==
LOC: HO.HSH3W 06:01
PROVIDERS: Visit Provider Nurse Practitioner
DX: N18.30 Chronic kidney disease, stage 3 unspecified (principal)
CPT/HCPCS: 36415; 80048

== ENCOUNTER 2022-11-08 05:47 | Outpatient (REF) | payer MEDICARE, SELFPAY ==
[2022-11-16 13:58] LABS: Vitamin B1 69 nmol/L (8-30)
== END 2022-11-08 05:48 | disposition home or self-care (01) ==
LOC: HO.HSH3W 05:47
PROVIDERS: Visit Provider Nurse Practitioner Acute Care
DX: F32.A Depression, unspecified (principal)
CPT/HCPCS: 36415; 84425

== ENCOUNTER 2022-12-12 14:08 | Outpatient (AMB) | payer MEDICARE, SELFPAY ==
--- NOTE | 2022-12-12 14:18 | MHC.OFFVIS ---
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 Required: No Accompanied by: Self / Same As Patient Allergies lisinopril [LISINOPRIL] Allergy (Mild, Verified 12/12/22 14:25) UNKNOWN baclofen [BACLOFEN] Allergy (Unknown, Verified 12/12/22 14:25) UNKNOWN shellfish derived [SHELLFISH DERIVED] Allergy (Unknown, Verified 12/12/22 14:25) UNKNOWN Medication List - Last Reconciled 12/12/22 by Nnamdi Damon MD acetaminophen 650 mg PO Q6H PRN allopurinol 50 mg PO Q2D aspirin 81 mg PO DAILY cholecalciferol (vitamin D3) 50 mcg PO DAILY colchicine 0.6 mg PO BID loperamide 2 mg PO Q6H PRN loratadine 10 mg PO BEDTIME magnesium hydroxide (Dulcolax (magnesium hydroxide)) 5 mL PO BEDTIME metoprolol succinate ER 25 mg PO DAILY ondansetron HCl 4 mg PO Q8H tramadol 50 mg PO Q12H PRN HPI HPI Comments History of Present Illness Details [facility] returns for follow-up of various cardiac issues. During prior hospitalization for cholecystitis, had non ST-elevation myocardial infarction. Echocardiogram was suggestive of wall motion abnormalities/underlying coronary disease. However, multiple medical comorbidities including cirrhosis, CKD and dementia. Hence it was felt that he is not a good candidate for cardiac catheterization. Medically treated. Overall, he is doing okay. No complaints like angina or shortness of breath or in fact anything cardiac stenting. [facility] Medical History Hoffman esophagus Cirrhosis of liver CKD (chronic kidney disease) Dementia Diverticulitis Malignant neoplasm of prostate New onset of congestive heart failure Surgical History H/O radical prostatectomy Family History Father CAD (coronary artery disease) Social History Housing: Assisted Living Facility Alcohol intake: former Patient Tobacco Use Status: Never used Tobacco Advance Directives Date on File: 12/22/21 service: Yes Current occupational status: retired Review of Systems Const Denies weakness ENT Denies dizziness Card Denies chest pain, Denies chest pain with activity, Denies syncope, Denies rapid heart rate, Denies pedal edema, Denies edema, Denies leg edema, Denies lightheadedness, Denies palpitations, Denies dyspnea, Denies dyspnea on exertion and Denies orthopnea Resp Denies cough, Denies dyspnea and Denies dyspnea on exertion GI Denies hematochezia and Denies change in stool character Musc Denies abnormal gait, Denies muscle cramps, Denies muscle weakness, Denies numbness, Denies radiating pain into limb and Denies tingling Neuro Denies abnormal gait, Denies dizziness, Denies syncope, Denies numbness, Denies tingling and Denies weakness Endo Denies palpitations Physical Exam Vital Signs: Last Vital Signs Pulse 70 12/12/22 14:19 BP 92/60 12/12/22 14:19 BMI result Body Mass Index 23.8 Const General: comfortable and no acute distress Orientation/consciousness: patient oriented x3 HEENT Other: Unremarkable Head: Yes normal to inspection Neck Neck: Yes normal visual inspection Chest Chest palpation & inspection: normal inspection of the chest Resp Auscultation: clear to auscultation bilaterally Cardio Palpation: normal PMI Heart sounds: S1 normal heart sound present, S2 normal heart sound present, no gallops, no murmurs and no rubs GI Palpation (GI): Soft to palpation Back/Spine/Pelvis Other: unremarkable Skin General skin exam: no rashes or lesions noted Neuro General: patient oriented x3 Extrem General: Yes normal to inspection Psych Mental Status: mental status grossly normal Office Procedures EKG Details: EKG today shows sinus rhythm with Mobitz type 1 second-degree heart block and right bundle-branch block. [id number], Complete Assessment & Plan Assessment & Plan (1) Atherosclerotic cardiovascular disease: Code(s): I25.10 - Atherosclerotic heart disease of [place] coronary artery without angina pectoris (2) NSTEMI (non-ST elevated myocardial infarction): Code(s): I21.4 - Non-ST elevation (NSTEMI) myocardial infarction (3) Cardiomyopathy: Code(s): I42.9 - Cardiomyopathy, unspecified (4) Heart block: Code(s): I45.9 - Conduction disorder, unspecified Plan In the last echocardiogram, LVEF 46%. Wall motion abnormalities are could reflect underlying coronary disease. Mild aortic/mitral calcification. Today's EKG shows Mobitz type 1 Wenckebach type heart block. Significant comorbidities including cirrhosis of the liver, probable portal hypertension, splenomegaly, chronic kidney disease, dementia. Overall, not many options. Considered to be a poor candidate for cardiac catheterization due to comorbidities. Cannot continue beta-blockers due to heart block and hence we can stop that. Just continue aspirin only. It seems statins were tried but LFTs went up and hence they been stopped. Based on his overall condition, may not be suitable for Repatha or Praluent. Guarded prognosis. Follow-up in 6 months. Coding Level of Care Code Est Pt Level 4 (15615) Diagnoses Atherosclerotic cardiovascular disease I25.10 NSTEMI (non-ST elevated myocardial infarction) I21.4 Cardiomyopathy I42.9 Heart block I45.9 CPT Codes EKG - CPT: 51342-[id number], Complete ([id number])
[2022-12-12 14:19] VITALS: BP 92/60; PULSE 70; BMI 23.8
== END 2022-12-12 14:51 | disposition home or self-care (01) ==
PROVIDERS: PCP Internal Medicine; Visit Provider Internal Medicine
DX: I25.10 Atherosclerotic heart disease of native coronary artery without angina pectoris (principal); I21.4 Non-ST elevation (NSTEMI) myocardial infarction; I42.9 Cardiomyopathy, unspecified; I45.9 Conduction disorder, unspecified
CPT/HCPCS: 93010; 99214

== ENCOUNTER → 2022-12-12 14:08 | Outpatient (BNVA) | payer MEDICARE, SELFPAY | PROVIDERS: PCP Internal Medicine; Visit Provider Internal Medicine | DX: I21.4 Non-ST elevation (NSTEMI) myocardial infarction (principal); I42.9 Cardiomyopathy, unspecified; I25.10 Atherosclerotic heart disease of native coronary artery without angina pectoris; I45.9 Conduction disorder, unspecified; N18.9 Chronic kidney disease, unspecified; K74.60 Unspecified cirrhosis of liver | CPT/HCPCS: 93005; 99212 ==

== ENCOUNTER 2023-03-19 05:02 | Outpatient (REF) | payer MEDICARE, SELFPAY ==
[2023-03-19 06:09] LABS: MANUAL DIFF FLAG NO
[2023-03-19 06:28] LABS: Alanine Aminotransferase 9 U/L (0-40); Albumin Level 3.7 g/dL (3.5-5.0); Alkaline Phosphatase 83 U/L (39-117); Anion Gap 12 (12-20); Aspartate Amino Transferase 12 U/L (5-37); Bilirubin Total 0.4 mg/dL (0.0-1.0); Blood Urea Nitrogen 16 mg/dL (9-16); Calcium 9.2 mg/dL (8.4-10.2); Carbon Dioxide 24 mmol/L (22-29); Chloride 110 mmol/L (96-108); Estimated Glomerular Filt Rate 34; Glucose Fasting 87 mg/dL (60-99); Potassium 4.3 mmol/L (3.3-5.1); Sodium 142 mmol/L (135-145); Total Protein 6.3 g/dL (6.5-8.0)
[2023-03-19 06:41] LABS: Basophils Percent Auto 0.6 % (0-2); Eosinophils Absolute Auto 0.1 X10*3/uL (0.0-0.4); Eosinophils Percent Auto 2.8 % (0-4); Hematocrit 37.3 % (42.0-52.0); Hemoglobin 12.2 g/dl (14.0-18.0); Imm Gran Abs Auto 0.02 X10*3/uL (0.00-0.03); Imm Gran Pct Auto 0.4 % (0.0-0.4); Lymphocytes Absolute Auto 1.9 X10*3/uL (1.2-4.9); Lymphocytes Percent Auto 38.2 % (20-40); Mean Corpuscular HGB Conc 32.7 g/dl (31.0-36.0); Mean Corpuscular Hemoglobin 27.2 pg (27.0-33.0); Mean Corpuscular Volume 83.3 fL (80.0-98.0); Mean Platelet Volume 10.6 fL (9.4-12.4); Monocytes Absolute Auto 0.5 X10*3/uL (0.1-1.2); Monocytes Percent Auto 10.5 % (2-11); Neutrophils Absolute Auto 2.4 x10*3/uL (2.0-8.3); Neutrophils Percent Auto 47.5 % (45-73); Platelet Count 149 X10*3/uL (160-400); Red Blood Count 4.48 X10*6/uL (4.60-5.80)
== END 2023-03-19 05:03 | disposition home or self-care (01) ==
LOC: HO.HSH3W 05:02
PROVIDERS: Visit Provider Nurse Practitioner
DX: N18.9 Chronic kidney disease, unspecified (principal); M10.9 Gout, unspecified
CPT/HCPCS: 36415; 80053; 84550; 85025

== ENCOUNTER 2023-04-17 05:20 | Outpatient (REF) | payer MEDICARE, SELFPAY ==
[2023-04-17 06:51] LABS: Uric Acid 9.1 mg/dL (3.4-7.0)
== END 2023-04-17 05:21 | disposition home or self-care (01) ==
LOC: HO.HSH3W 05:20
PROVIDERS: Visit Provider Nurse Practitioner
DX: M10.00 Idiopathic gout, unspecified site (principal)
CPT/HCPCS: 36415; 84550

== ENCOUNTER → 2023-06-17 13:00 | Outpatient (BNVA) | payer MEDICARE, SELFPAY | PROVIDERS: PCP Internal Medicine; Visit Provider Internal Medicine | DX: I21.4 Non-ST elevation (NSTEMI) myocardial infarction (principal); I25.10 Atherosclerotic heart disease of native coronary artery without angina pectoris; I42.9 Cardiomyopathy, unspecified; I45.9 Conduction disorder, unspecified | CPT/HCPCS: 93005; 99212 ==

== ENCOUNTER 2023-06-17 13:01 | Outpatient (AMB) | payer MEDICARE, SELFPAY ==
--- NOTE | 2023-06-17 13:55 | MHC.OFFVIS ---
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: No Accompanied by: PLEATER HAND Allergies lisinopril [LISINOPRIL] Allergy (Mild, Verified 06/17/23 14:06) UNKNOWN baclofen [BACLOFEN] Allergy (Unknown, Verified 06/17/23 14:06) UNKNOWN shellfish derived [SHELLFISH DERIVED] Allergy (Unknown, Verified 06/17/23 14:06) UNKNOWN Medication List - Last Reconciled 06/17/23 by Nnamdi Damon MD acetaminophen 650 mg PO Q6H PRN allopurinol 50 mg PO Q2D aspirin 81 mg PO DAILY cholecalciferol (vitamin D3) 50 mcg PO DAILY colchicine 0.6 mg PO BID loperamide 2 mg PO Q6H PRN loratadine 10 mg PO BEDTIME magnesium hydroxide (Dulcolax (magnesium hydroxide)) 5 mL PO BEDTIME ondansetron HCl 4 mg PO Q8H pantoprazole 40 mg PO DAILY tramadol 50 mg PO Q12H PRN HPI HPI Comments History of Present Illness Details [facility] returns for follow-up of various cardiac issues. During prior hospitalization for cholecystitis, had non ST-elevation myocardial infarction. Echocardiogram was suggestive of wall motion abnormalities/underlying coronary disease. However, multiple medical comorbidities including cirrhosis, CKD and dementia. Hence it was felt that he is not a good candidate for cardiac catheterization. Medically treated. Patient states that he is feeling fine. He does not have any symptoms like angina or shortness of breath or palpitations or in fact anything cardiac sounding. [facility] Medical History Hoffman esophagus Cirrhosis of liver CKD (chronic kidney disease) Dementia Diverticulitis Malignant neoplasm of prostate New onset of congestive heart failure Surgical History H/O radical prostatectomy Family History Father CAD (coronary artery disease) Social History Housing: Assisted Living Facility Alcohol intake: former Patient Tobacco Use Status: Never used Tobacco Advance Directives Date on File: 12/22/21 service: Yes Current occupational status: retired Review of Systems Const Denies weakness ENT Denies dizziness Card Denies chest pain, Denies chest pain with activity, Denies syncope, Denies rapid heart rate, Denies pedal edema, Denies edema, Denies leg edema, Denies lightheadedness, Denies palpitations, Denies dyspnea, Denies dyspnea on exertion and Denies orthopnea Resp Denies cough, Denies dyspnea and Denies dyspnea on exertion GI Denies hematochezia and Denies change in stool character Musc Denies abnormal gait, Denies muscle cramps, Denies muscle weakness, Denies numbness, Denies radiating pain into limb and Denies tingling Neuro Denies abnormal gait, Denies dizziness, Denies syncope, Denies numbness, Denies tingling and Denies weakness Endo Denies palpitations Physical Exam Vital Signs: Last Vital Signs Pulse 52 06/17/23 14:02 BP 108/70 06/17/23 14:02 Const General: comfortable and no acute distress Orientation/consciousness: patient oriented x3 HEENT Other: Unremarkable Head: Yes normal to inspection Neck Neck: Yes normal visual inspection Chest Chest palpation & inspection: normal inspection of the chest Resp Auscultation: clear to auscultation bilaterally Cardio Palpation: normal PMI Heart sounds: S1 normal heart sound present, S2 normal heart sound present, no gallops, no murmurs and no rubs GI Palpation (GI): Soft to palpation Back/Spine/Pelvis Other: unremarkable Skin General skin exam: no rashes or lesions noted Neuro General: patient oriented x3 Extrem General: Yes normal to inspection Psych Mental Status: mental status grossly normal Office Procedures EKG Details: EKG with sinus rhythm at 68/Min with Mobitz type 1 second-degree heart block. [id number], Complete Assessment & Plan Assessment & Plan (1) Atherosclerotic cardiovascular disease: Code(s): I25.10 - Atherosclerotic heart disease of [place] coronary artery without angina pectoris (2) NSTEMI (non-ST elevated myocardial infarction): Code(s): I21.4 - Non-ST elevation (NSTEMI) myocardial infarction (3) Cardiomyopathy: Code(s): I42.9 - Cardiomyopathy, unspecified (4) Heart block: Code(s): I45.9 - Conduction disorder, unspecified Plan In the last echocardiogram, LVEF 46%. Wall motion abnormalities are could reflect underlying coronary disease. Mild aortic/mitral calcification. Today's EKG shows Mobitz type 1 Wenckebach type heart block. Significant comorbidities including cirrhosis of the liver, probable portal hypertension, splenomegaly, chronic kidney disease, dementia. Considered to be a poor candidate for cardiac catheterization due to comorbidities. During last visit, beta-blockers were stopped because of the heart block. We can check Holter monitor to ensure there are no high-grade heart blocks. It seems statins were tried but LFTs went up and hence they been stopped. Based on his overall condition, may not be suitable for Repatha or Praluent. Guarded prognosis. Orders: Orders ECG 7 day holter monitor Today I44.1 - Atrioventricular block, second degree Coding Level of Care Code Est Pt Level 4 (37660) Diagnoses Atherosclerotic cardiovascular disease I25.10 NSTEMI (non-ST elevated myocardial infarction) I21.4 Cardiomyopathy I42.9 Heart block I45.9 CPT Codes EKG - CPT: 94913-[id number], Complete ([id number])
[2023-06-17 14:02] VITALS: BP 108/70; PULSE 52
== END 2023-06-17 14:27 | disposition home or self-care (01) ==
PROVIDERS: PCP Internal Medicine; Visit Provider Internal Medicine
DX: I25.10 Atherosclerotic heart disease of native coronary artery without angina pectoris (principal); I21.4 Non-ST elevation (NSTEMI) myocardial infarction; I42.9 Cardiomyopathy, unspecified; I45.9 Conduction disorder, unspecified
CPT/HCPCS: 93010; 99214

== ENCOUNTER → 2023-07-02 09:53 | Outpatient (REF) | payer MEDICARE, SELFPAY ==
--- NOTE | 2023-07-02 10:08 | HM_ITS ---
Conclusion: 1. Patient was monitored for total period of 6 days and 23 hours 2. Baseline was sinus rhythm with average heart of 55 beats per minute with frequent sinus bradycardia with heart rate below 60 beats per minute 41% of the time 3. Frequent AV Wenckebach noted with occasional Mobitz type 1 second-degree AV block 4. Frequent PVCs noted with total burden of 5.9%, with 7 3-4 beat salvos of nonsustained VT 5. No patient reported events MTDD
== END ==
LOC: HO.CARD 09:53
PROVIDERS: PCP Internal Medicine; Visit Provider Internal Medicine
DX: I44.1 Atrioventricular block, second degree (principal)
CPT/HCPCS: 93242

== ENCOUNTER → 2023-07-02 10:08 | Outpatient (BNV) | payer MEDICARE, SELFPAY | PROVIDERS: PCP Internal Medicine; Visit Provider Internal Medicine Cardiovascular Disease | DX: I44.1 Atrioventricular block, second degree (principal) | CPT/HCPCS: 93244 ==

== ENCOUNTER 2023-08-13 09:31 | Outpatient (AMB) | payer MEDICARE, SELFPAY ==
[2023-08-13 09:42] VITALS: BP 108/54; PULSE 88
--- NOTE | 2023-08-13 09:42 | MHC.OFFVIS ---
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 [employer] Required: No Food Tray Assembler: Food Tray Assembler Present Allergies lisinopril [LISINOPRIL] Allergy (Mild, Verified 06/17/23 14:06) UNKNOWN baclofen [BACLOFEN] Allergy (Unknown, Verified 06/17/23 14:06) UNKNOWN shellfish derived [SHELLFISH DERIVED] Allergy (Unknown, Verified 06/17/23 14:06) UNKNOWN Medication List - Last Reconciled 08/13/23 by RUBI Lopez acetaminophen 650 mg PO Q6H PRN allopurinol 50 mg PO Q2D aspirin 81 mg PO DAILY cholecalciferol (vitamin D3) 50 mcg PO DAILY colchicine 0.6 mg PO BID loperamide 2 mg PO Q6H PRN loratadine 10 mg PO BEDTIME magnesium hydroxide (Dulcolax (magnesium hydroxide)) 5 mL PO BEDTIME ondansetron HCl 4 mg PO Q8H pantoprazole 40 mg PO DAILY tramadol 50 mg PO Q12H PRN HPI f/up holter HPI Details Clifford is a 77-year-old male with past medical history of dementia, NSTEMI, Congestive heart failure, second-degree heart block type 1 who presents after recent Holter monitor. Today he reports that he has been feeling well. He denies any physical complaints. No chest discomfort, shortness of breath, heart palpitations, lightheadedness, presyncope, syncope, falls, PND, orthopnea or edema. He says he walks slowly and mostly uses a wheelchair. He takes all his meds as directed. [facility] Medical History CKD (chronic kidney disease) New onset of congestive heart failure Diverticulitis Dementia Hoffman esophagus Malignant neoplasm of prostate Cirrhosis of liver Surgical History H/O radical prostatectomy Family History Father CAD (coronary artery disease) Social History Housing: Assisted Living Facility Alcohol intake: former Patient Tobacco Use Status: Never used Tobacco Advance Directives Date on File: 12/22/21 service: Yes Current occupational status: retired Review of Systems Const All systems reviewed & are unremarkable except as noted in HPI and below ENT Denies dizziness Card Denies chest pain, Denies chest pain at rest, Denies chest pain with activity, Denies rapid heart rate, Denies pedal edema, Denies edema, Denies leg edema, Denies lightheadedness, Denies palpitations, Denies dyspnea, Denies dyspnea on exertion and Denies orthopnea Resp Denies cough, Denies dyspnea and Denies dyspnea on exertion GI Denies hematochezia and Denies change in stool character Musc Details: walks slowly, uses wheelchair at times Reports abnormal gait, Denies limited range of motion, Denies muscle cramps, Denies muscle weakness, Denies numbness, Denies radiating pain into limb, Denies stiffness and Denies tingling Neuro Reports abnormal gait, Denies dizziness, Denies numbness and Denies tingling Endo Denies palpitations Physical Exam Vital Signs: Last Vital Signs Pulse 88 08/13/23 09:42 BP 108/54 L 08/13/23 09:42 Const Other: elderly male, sitting in wheelchair General: cooperative, healthy appearing, comfortable and no acute distress Orientation/consciousness: patient oriented x3 HEENT Other: hard of hearing Neck Neck: Yes normal visual inspection Resp Effort & Inspection: normal respiratory effort Auscultation: clear to auscultation bilaterally, no rales, no rhonchi and no wheezes Cardio Jugular venous distension: no JVD Rate: regular rate Rhythm: regular rhythm Heart sounds: S1 normal heart sound present, S2 normal heart sound present, no murmurs and no rubs Neuro Other: seems appropriate at this visit General: patient oriented x3 Extrem General: Yes normal to inspection and No no pedal edema Psych Appearance: grossly normal Mental Status: mental status grossly normal Speech and movement: Normal speech and movement present Assessment & Plan Assessment & Plan (1) Atherosclerotic cardiovascular disease: Code(s): I25.10 - Atherosclerotic heart disease of [place] coronary artery without angina pectoris Plan: History of NSTEMI at time of admission for acute cholecystitis 11/2021. Echocardiogram done at that time showed EF 46%, apical inferior, mid anterior, apical septum and mid anterior lateral segments hypokinetic. With his history of dementia and no anginal symptoms he will was treated medically. He did not undergo cardiac catheterization. He initially was on aspirin and Plavix. He is now just on aspirin. Is not on statin for unclear reason. Recommend check of lipid profile and start atorvastatin 20 mg daily. Follow LFTs. He had been on metoprolol however it was stopped due to finding of Wenckebach/second-degree heart block type 1. Today he denies any anginal sounding symptoms. It is unclear if his responses are accurate as he does have a reported history of dementia. Spent time reviewing signs and symptoms of angina with him. Instructions and recommendations written on his return form to this [facility]. (2) Cardiomyopathy: Code(s): I42.9 - Cardiomyopathy, unspecified Plan: Mild cardiomyopathy noted on last echocardiogram. Has no signs of heart failure on examination. He denies any shortness of breath, PND, orthopnea. He has no lower extremity edema. His blood pressure is running low at 1 0 8/54. He is not on meds for neurohormonal modulation. He had been on metoprolol in the past however it was stopped due to slow heart rates. He has not been on Tam/Arb. He does have known chronic kidney disease with last known creatinine 1.92 on 03/19/2023. Will have him update echo prior to his next visit. (3) Heart block: Code(s): I45.9 - Conduction disorder, unspecified Plan: EKG done on last visit showing second-degree heart block. He was taken off his metoprolol. Holter monitor was done on 07/02/2023 for 7 days showing sinus bradycardia with average heart rate 55, Mobitz 1 rhythm, frequent PVCs 5.9% with 3-4 beat runs of an SVT. At this time patient denies any concerning symptoms. No lightheadedness, presyncope, syncope, falls. Pulse rate is 88 on exam today. He needs to remain off all rate slowing medications at this time. If he does have concerning symptoms then pacemaker may be indicated. Currently asymptomatic. Copy of Holter report given to [facility] for their review. Patient needs close observation, watch for any presyncope, syncope. Cardiology office visit 4 months, sooner if needed Plan Time spent on chart review, documentation, interview assess Coding Level of Care Code Est Pt Level 4 (97351) Diagnoses Atherosclerotic cardiovascular disease I25.10 Cardiomyopathy I42.9 Heart block I45.9 Time Spent (min) 28
== END 2023-08-13 09:57 | disposition home or self-care (01) ==
PROVIDERS: PCP Internal Medicine; Referring Provider Internal Medicine; Visit Provider Nurse Practitioner Family
DX: I25.10 Atherosclerotic heart disease of native coronary artery without angina pectoris (principal); I42.9 Cardiomyopathy, unspecified; I45.9 Conduction disorder, unspecified
CPT/HCPCS: 99214

== ENCOUNTER → 2023-08-13 09:31 | Outpatient (BNVA) | payer MEDICARE, SELFPAY | PROVIDERS: PCP Internal Medicine; Visit Provider Nurse Practitioner Family | DX: I25.10 Atherosclerotic heart disease of native coronary artery without angina pectoris (principal); I42.9 Cardiomyopathy, unspecified; I45.9 Conduction disorder, unspecified | CPT/HCPCS: 99212 ==

== ENCOUNTER 2023-08-27 07:36 | Outpatient (REF) | payer MEDICARE, SELFPAY ==
[2023-08-27 07:47] LABS: Basophils Percent Auto 0.6 % (0-2); Eosinophils Absolute Auto 0.3 X10*3/uL (0.0-0.4); Hematocrit 36.6 % (42.0-52.0); Hemoglobin 12.1 g/dl (14.0-18.0); Imm Gran Abs Auto 0.02 X10*3/uL (0.00-0.03); Imm Gran Pct Auto 0.4 % (0.0-0.4); Lymphocytes Absolute Auto 1.8 X10*3/uL (1.2-4.9); Lymphocytes Percent Auto 36.7 % (20-40); MANUAL DIFF FLAG NO; Mean Corpuscular HGB Conc 33.1 g/dl (31.0-36.0); Mean Corpuscular Hemoglobin 27.5 pg (27.0-33.0); Mean Corpuscular Volume 83.2 fL (80.0-98.0); Monocytes Absolute Auto 0.5 X10*3/uL (0.1-1.2); Monocytes Percent Auto 9.6 % (2-11); Neutrophils Absolute Auto 2.2 x10*3/uL (2.0-8.3); Neutrophils Percent Auto 46.7 % (45-73); Platelet Count 158 X10*3/uL (160-400); Red Cell Distribution Width 14.2 % (11.0-16.0); White Blood Count 4.8 X10*3/uL (4.8-10.8)
[2023-08-27 08:10] LABS: Alanine Aminotransferase 10 U/L (0-40); Albumin Level 3.5 g/dL (3.5-5.0); Alkaline Phosphatase 72 U/L (39-117); Anion Gap 12 (12-20); Aspartate Amino Transferase 13 U/L (5-37); Bilirubin Total 0.4 mg/dL (0.0-1.0); Blood Urea Nitrogen 17 mg/dL (9-16); Calcium 8.4 mg/dL (8.4-10.2); Carbon Dioxide 22 mmol/L (22-29); Chloride 112 mmol/L (96-108); Cholesterol 153 mg/dL (<200); Estimated Glomerular Filt Rate 43; Glucose Fasting 82 mg/dL (60-99); HDL Cholesterol 24 mg/dL (>40); LDL Cholesterol Calculated 98 mg/dL (<100); Potassium 3.9 mmol/L (3.3-5.1); Sodium 142 mmol/L (135-145); Total Protein 6.1 g/dL (6.5-8.0); Triglycerides 155 mg/dL (<150)
[2023-08-27 08:41] LABS: Thyroid Stimulating Hormone 1.39 uIU/mL (0.32-4.0)
[2023-09-02 12:18] LABS: Vitamin B1 64 nmol/L (8-30)
== END 2023-08-27 07:37 | disposition home or self-care (01) ==
LOC: HO.HSH3W 07:36
PROVIDERS: Visit Provider Nurse Practitioner
DX: Z13.6 Encounter for screening for cardiovascular disorders (principal); K70.30 Alcoholic cirrhosis of liver without ascites; F03.90 Unspecified dementia, unspecified severity, without behavioral disturbance, psychotic disturbance, mood disturbance, and anxiety
CPT/HCPCS: 36415; 80053; 80061; 84425; 84443; 85025

== ENCOUNTER → 2023-10-22 09:30 | Outpatient (REF) | payer OTHER, SELFPAY ==
--- NOTE | 2023-10-22 09:39 | CA_ITS ---
Transthoracic Echocardiogram Patient (Last, First, Middle): Clifford Ashby A Gender: Male Date of : 1945 Age: 78 Procedure Date: 10/22/2023 Procedure Type: Transthoracic Echocardiogram Location: OP Height: 175.26 cm Weight: 73.94 kg BSA: 1.89 m2 Heart Rate: bpm BP: 138 / 64 mmHg Business Job Titles: SB Referring MD: Vani Cordon INTERNAL MEDICINE SPECIALISTDennis Symptoms: I42.9 - Cardiomyopathy, unspecified Study Quality: Adequate ECG Rhythm: Sinus with second degree AV block, Mobitz 1 Conclusions: - The left ventricular systolic function is mildly decreased. The visually estimated ejection fraction is between 45-50%. - No obvious valvular pathology seen on this study. Findings Left Ventricle Normal left ventricular cavity size. The left ventricular systolic function is mildly decreased. The visually estimated ejection fraction is between 45 50%. There is no evidence of regional wall motion abnormalities. Diastolic function is indeterminate on the basis of available data. There is mild septal asymmetric hypertrophy. Right Ventricle Normal right ventricular cavity size. There is mildly decreased right ventricular systolic function. Atria Both atria are normal in size. Aortic Valve There is a normal trileaflet aortic valve. There is no aortic valve stenosis. There is no aortic valve regurgitation. Mitral Valve There is mild mitral annular calcification. There is no mitral valve regurgitation. There is no mitral valve stenosis. Pulmonic Valve The pulmonic valve is likely normal. Tricuspid Valve There is trace tricuspid valve regurgitation. There is no evidence of pulmonary hypertension. Great Vessels The sinuses of valsalva, asc aorta, and aortic arch are normal in size. Venous The inferior vena cava is normal in size and collapses greater than 50% with inspiration. Pericardium/Pleural There is no evidence of pericardial effusion. Prior Study Comparison Changes noted compared to prior study dated: 12/19/2021. Wall motion abnormalities not obvious. Recommendations, Care & Conclusions No obvious valvular pathology seen on this study. Measurements 2D Linear Measurements IVSd: 1.12 0.6-0.9/0.6-1.0 cm LVIDd: 4.88 3.9-5.3/4.2-5.9 cm LVIDd Index: 2.58 2.4-3.2/2.2-3.1 cm/m2 LVIDs: 3.80 2.0-3.6 cm LVPWd: 0.98 0.7-1.1 cm LA Diam: 4.30 2.7-3.8/3.0-4.0 cm LAIDs Index: 2.28 1.5-2.3 cm/m2 LV Mass: 233.26 67-162/88-224 g LV Mass Index: 123.42 43-95/49-115 g/m2 LVOT Diam: 2.10 3.0+(-)1.3 cm 2D Systolic Function EF 4C: 57.20 >55% EF 2C: 34.90 >55% EF BiP: 47.10 >55% Mitral Valve MV Pk E: 0.60 MV PK A: 0.71 MV Decel Time: 175.00 E/A: 0.80 PHT: 51.00 MVA PHT: 4.31 Decel Sampson: 3.42 Aortic Valve AoV Pk Nixon: 0.93 AoV Pk Grad: 3.00 LVOT LVOT Pk Nixon: 0.63 LVOT Mn Nixon: 0.41 LVOT VTI: 0.10 LVOT Pk Grad: 2.00 LVOT Mn Grad: 1.00 LVOT Diam: 2.10 LVOT Area: 3.46 Diastolic Function MV Pk E: 0.60 MV Pk A: 0.71 E/A: 0.80 Right Ventricle TAPSE (mm): 15.60 TVS' Nixon: 10.00 Tricuspid Valve TR Pk Nixon: 2.05 TR Pk Grad: 17.00 RA Press: 3.00 RVSP: 20.00 Great Vessels Aorta Sinus of Valsalva: 3.70 2.0-3.5 cm Ao Asc: 3.40 2.1-3.4 cm Ao Arch: 3.10 Pulmonary Valve PV Pk Nixon: 0.76 Peak PV Grad: 2.00 Updated in Other Vendor System with Status of Final Nnamdi Damon MD electronically signed on 10/22/2023 4:14:55 PM with status of Final
== END ==
LOC: HO.CARD 09:30
PROVIDERS: PCP Internal Medicine; Visit Provider Nurse Practitioner Family
DX: I42.9 Cardiomyopathy, unspecified (principal); I21.4 Non-ST elevation (NSTEMI) myocardial infarction
CPT/HCPCS: 93306

== ENCOUNTER → 2023-10-22 09:39 | Outpatient (BNV) | payer OTHER, SELFPAY | PROVIDERS: PCP Internal Medicine; Visit Provider Internal Medicine | DX: I42.9 Cardiomyopathy, unspecified (principal) | CPT/HCPCS: 93306 ==

== ENCOUNTER 2023-11-05 10:28 | Outpatient (AMB) | payer OTHER, SELFPAY ==
--- NOTE | 2023-11-05 10:32 | A.OFFVIS_ITS ---
Vital Signs 11/05/23 10:34 Height 5 ft 9 in Weight 167 lb BMI 24.7 BP 122/68 Blood Pressure Location Lt brachial Position Sitting Pulse 87 Pulse Source Pulse Oximeter Intake Visit Reasons: f/u Allergies lisinopril [LISINOPRIL] Allergy (Mild, Verified 06/17/23 14:06) UNKNOWN baclofen [BACLOFEN] Allergy (Unknown, Verified 06/17/23 14:06) UNKNOWN shellfish derived [SHELLFISH DERIVED] Allergy (Unknown, Verified 06/17/23 14:06) UNKNOWN Medication List - Last Reconciled 11/05/23 by Kelsey Hanna NP acetaminophen 650 mg PO Q6H PRN allopurinol 50 mg PO Q2D aspirin 81 mg PO DAILY cholecalciferol (vitamin D3) 50 mcg PO DAILY loperamide 2 mg PO Q6H PRN loratadine 10 mg PO BEDTIME magnesium hydroxide (Dulcolax (magnesium hydroxide)) 5 mL PO BEDTIME ondansetron HCl 4 mg PO Q8H pantoprazole 40 mg PO DAILY tramadol 50 mg PO Q12H PRN HPI Comments Details: 78-year-old male presents today for a follow-up. He has a past medical history of dementia, NSTEMI, Congestive heart failure, and second degree heart block. He recently had an echocardiogram which showed some improvement. Echocardiogram on 11/2021 was suggestive of wall motion abnormalities/underlying coronary disease. However, he has multiple medical comorbidities including cirrhosis, chronic kidney disease and dementia. It was felt that he is not a good candidate for cardiac catheterization. He is being medically treated. He denies any chest pains, shortness of breath, dizziness, syncope, falls, orthopnea, or swelling. He is walking with a walker and has been increasing his ambulation. [facility] Medical History CKD (chronic kidney disease) New onset of congestive heart failure Diverticulitis Dementia Hoffman esophagus Malignant neoplasm of prostate Cirrhosis of liver Surgical History H/O radical prostatectomy Family History Father CAD (coronary artery disease) Social History Housing: Assisted Living Facility Alcohol intake: former Patient Tobacco Use Status: Never used Tobacco Advance Directives Date on File: 12/22/21 service: Yes Current occupational status: retired Review of Systems Const Denies weakness ENT Denies dizziness Card Denies chest pain, Denies chest pain with activity, Denies syncope, Denies rapid heart rate, Denies pedal edema, Denies edema, Denies leg edema, Denies lightheadedness, Denies palpitations, Denies dyspnea, Denies dyspnea on exertion and Denies orthopnea Resp Denies cough, Denies dyspnea and Denies dyspnea on exertion GI Denies hematochezia and Denies change in stool character Musc Denies abnormal gait, Denies muscle cramps, Denies muscle weakness, Denies numbness, Denies radiating pain into limb and Denies tingling Neuro Denies abnormal gait, Denies dizziness, Denies syncope, Denies numbness, Denies tingling and Denies weakness Endo Denies palpitations Physical Exam Vital Signs: Last Vital Signs Pulse 87 11/05/23 10:34 BP 122/68 11/05/23 10:34 BMI result Body Mass Index 24.7 Assessment & Plan Assessment & Plan (1) Atherosclerotic cardiovascular disease: Code(s): I25.10 - Atherosclerotic heart disease of [place] coronary artery without angina pectoris Category: Medical Plan: History of NSTEMI at time of admission for acute cholecystitis 11/2021. Echocardiogram done during that stay showed EF 46%, along with apical inferior, mid anterior, apical septum and mid anterior lateral segments hypokinetic. However, most recent echocardiogram on 10/22/2023 sowed no obvious wall motion abnormality. Due to medical history of dementia and no anginal symptoms he will was treated medically. He did not undergo cardiac catheterization. He is on aspirin. His LDL on 08/27/2023 was 98. AST was 13 and ALT was 10. Will add atorvastatin 20mg and recheck labs in 3 months. Orders given via papercopy. He had been on metoprolol however it was stopped due to finding of second-degree heart block type 1. Heart rates have been stable per SNF report 50-80s. Systolic blood pressures 97-120s. (2) Cardiomyopathy: Code(s): I42.9 - Cardiomyopathy, unspecified Category: Medical Plan: Echocardiogram showed mild septal asymmetric hypertrophy. Ejection fraction of 45-50%.He is not on meds for neurohormonal modulation. He had been on metoprolol in the past however it had been stopped due to bradycardia. He has not been on Tam/Arb. He has known chronic kidney disease with last known creatinine 1.55 on 08/27/2023. (3) Heart block: Code(s): I45.9 - Conduction disorder, unspecified Category: Medical Plan: EKG done on last visit showing second-degree heart block. He was taken off his metoprolol. Holter monitor was done on 07/02/2023 for 7 days showing sinus bradycardia with average heart rate 55, Mobitz 1 rhythm, PVC burde 5.9% with 3-4 beat runs of an SVT. Patient denies lightheadedness, presyncope, syncope, falls. Patient needs to remain off all rate slowing medications at this time. Currently asymptomatic. Report symptoms to the office. Patient needs close observation, watch for any presyncope, syncope. Orders: Orders Lipid Panel 3 Months I25.10 - Atherosclerotic heart disease of [place] coronary artery without angina pectoris Basic Metabolic Panel 3 Months I25.10 - Atherosclerotic heart disease of [place] coronary artery without angina pectoris Liver Panel 3 Months I25.10 - Atherosclerotic heart disease of [place] coronary artery without angina pectoris Medications: New atorvastatin 20 mg PO DAILY 90 days 90 tabs 3RF atorvastatin 20 mg PO DAILY 90 tabs 3RF 90 days Coding Level of Care Code Est Pt Level 4 (86647) Diagnoses Atherosclerotic cardiovascular disease I25.10 Cardiomyopathy I42.9 Heart block I45.9
[2023-11-05 10:34] VITALS: BP 122/68; PULSE 87; BMI 24.7
== END 2023-11-05 11:11 | disposition home or self-care (01) ==
PROVIDERS: PCP Internal Medicine; Visit Provider Nurse Practitioner
DX: I25.10 Atherosclerotic heart disease of native coronary artery without angina pectoris (principal); I42.9 Cardiomyopathy, unspecified; I45.9 Conduction disorder, unspecified
CPT/HCPCS: 99214

== ENCOUNTER → 2023-11-05 10:28 | Outpatient (BNVA) | payer OTHER, SELFPAY | PROVIDERS: PCP Internal Medicine; Visit Provider Nurse Practitioner | DX: I25.10 Atherosclerotic heart disease of native coronary artery without angina pectoris (principal); I42.9 Cardiomyopathy, unspecified; I45.9 Conduction disorder, unspecified | CPT/HCPCS: 99212 ==

== ENCOUNTER 2024-02-06 06:56 | Outpatient (REF) | payer MEDICARE, SELFPAY ==
[2024-02-06 07:02] LABS: MANUAL DIFF FLAG NO
[2024-02-06 07:56] LABS: Basophils Percent Auto 0.5 % (0-2); Eosinophils Absolute Auto 0.2 X10*3/uL (0.0-0.4); Eosinophils Percent Auto 2.2 % (0-4); Hematocrit 37.7 % (42.0-52.0); Hemoglobin 12.6 g/dl (14.0-18.0); Imm Gran Abs Auto 0.03 X10*3/uL (0.00-0.03); Imm Gran Pct Auto 0.4 % (0.0-0.4); Lymphocytes Percent Auto 24.5 % (20-40); Mean Corpuscular HGB Conc 33.4 g/dl (31.0-36.0); Mean Corpuscular Hemoglobin 27.8 pg (27.0-33.0); Mean Corpuscular Volume 83.2 fL (80.0-98.0); Mean Platelet Volume 10.1 fL (9.4-12.4); Monocytes Absolute Auto 0.9 X10*3/uL (0.1-1.2); Monocytes Percent Auto 10.5 % (2-11); Neutrophils Absolute Auto 5.1 x10*3/uL (2.0-8.3); Neutrophils Percent Auto 61.9 % (45-73); Platelet Count 153 X10*3/uL (160-400); Red Blood Count 4.53 X10*6/uL (4.60-5.80); Red Cell Distribution Width 14.6 % (11.0-16.0); White Blood Count 8.3 X10*3/uL (4.8-10.8)
[2024-02-06 08:14] LABS: Alanine Aminotransferase 14 U/L (0-40); Albumin Level 3.5 g/dL (3.5-5.0); Alkaline Phosphatase 88 U/L (39-117); Anion Gap 13 (12-20); Aspartate Amino Transferase 15 U/L (5-37); Bilirubin Direct 0.2 mg/dL (0.0-0.5); Bilirubin Total 0.5 mg/dL (0.0-1.0); Blood Urea Nitrogen 16 mg/dL (9-16); Calcium 8.8 mg/dL (8.4-10.2); Carbon Dioxide 21 mmol/L (22-29); Chloride 110 mmol/L (96-108); Cholesterol 150 mg/dL (<200); Estimated Glomerular Filt Rate 36; Glucose Random 89 mg/dL (60-115); HDL Cholesterol 28 mg/dL (>40); LDL Cholesterol Calculated 104 mg/dL (<100); Potassium 3.9 mmol/L (3.3-5.1); Sodium 140 mmol/L (135-145); Total Protein 6.1 g/dL (6.5-8.0); Triglycerides 93 mg/dL (<150)
== END 2024-02-06 06:57 | disposition home or self-care (01) ==
LOC: HO.HSH3N 06:56
PROVIDERS: PCP Nurse Practitioner Acute Care; Visit Provider Nurse Practitioner Acute Care
DX: I12.9 Hypertensive chronic kidney disease with stage 1 through stage 4 chronic kidney disease, or unspecified chronic kidney disease (principal); N18.4 Chronic kidney disease, stage 4 (severe)
CPT/HCPCS: 36415; 80048; 80061; 80076; 85025

== ENCOUNTER 2024-03-02 10:18 | Outpatient (AMB) | payer OTHER, SELFPAY ==
--- NOTE | 2024-03-02 10:39 | MHC.OFFVIS ---
Vital Signs 03/02/24 10:40 Height 5 ft 9 in Weight 171 lb 1.259 oz BMI 25.3 BP 124/68 Blood Pressure Location Lt brachial Position Sitting Pulse 72 Pulse Source Auscultation Intake Visit Reasons: 4 mth f/up labs at [facility] [employer] Required: No Accompanied by: Self / Same As Patient Allergies lisinopril [LISINOPRIL] Allergy (Mild, Verified 06/17/23 14:06) UNKNOWN baclofen [BACLOFEN] Allergy (Unknown, Verified 06/17/23 14:06) UNKNOWN shellfish derived [SHELLFISH DERIVED] Allergy (Unknown, Verified 06/17/23 14:06) UNKNOWN Medication List - Last Reconciled 03/02/24 by Nnamdi Damon MD acetaminophen 650 mg PO Q6H PRN allopurinol 50 mg PO Q2D aspirin 81 mg PO DAILY cholecalciferol (vitamin D3) 50 mcg PO DAILY famotidine 20 mg PO DAILY loperamide 2 mg PO Q6H PRN loratadine 10 mg PO BEDTIME magnesium hydroxide (Dulcolax (magnesium hydroxide)) 5 mL PO BEDTIME mirtazapine 30 mg PO DAILY ondansetron HCl 4 mg PO Q8H pantoprazole 40 mg PO DAILY polyethylene glycol 3350 (Miralax) 17 grams PO DAILY HPI Comments Details: Clifford returns for follow-up of various cardiac issues. During prior hospitalization for cholecystitis, had NSTEMI. Echocardiogram was suggestive of wall motion abnormalities/underlying coronary disease. However, multiple medical comorbidities including cirrhosis, CKD and dementia. Hence it was felt that he is not a good candidate for cardiac catheterization. Medically treated. He also has Mobitz type 1 second-degree heart block. Overall, he states he feels fine. Absolutely no cardiac symptoms. [facility] Medical History CKD (chronic kidney disease) New onset of congestive heart failure Diverticulitis Dementia Hoffman esophagus Malignant neoplasm of prostate Cirrhosis of liver Surgical History H/O radical prostatectomy Family History Father CAD (coronary artery disease) Social History Housing: Assisted Living Facility Alcohol intake: former Patient Tobacco Use Status: Never used Tobacco Advance Directives Date on File: 12/22/21 service: Yes Current occupational status: retired Review of Systems Const Denies chills, Denies fatigue, Denies fever(s), Denies weight gain and Denies weight loss ENT Denies dizziness Card Denies chest pain, Denies leg edema, Denies lightheadedness, Denies palpitations, Denies dyspnea on exertion, Denies orthopnea and Denies other Resp Denies cough and Denies dyspnea on exertion GI Denies hematochezia and Denies change in stool character Musc Denies abnormal gait, Denies muscle weakness, Denies numbness, Denies radiating pain into limb and Denies tingling Neuro Denies abnormal gait, Denies dizziness, Denies numbness and Denies tingling Endo Denies fatigue and Denies palpitations Physical Exam Vital Signs: Last Vital Signs Pulse 72 03/02/24 10:40 BP 124/68 03/02/24 10:40 BMI result Body Mass Index 25.3 Const General: comfortable and no acute distress Orientation/consciousness: patient oriented x3 HEENT Other: Unremarkable Head: Yes normal to inspection Neck Neck: Yes normal visual inspection Chest Chest palpation & inspection: normal inspection of the chest Resp Auscultation: clear to auscultation bilaterally Cardio Palpation: normal PMI Heart sounds: S1 normal heart sound present, S2 normal heart sound present, no gallops, no murmurs and no rubs GI Palpation (GI): Soft to palpation Back/Spine/Pelvis Other: unremarkable Skin General skin exam: no rashes or lesions noted Neuro General: patient oriented x3 Extrem General: Yes normal to inspection Psych Mental Status: mental status grossly normal Assessment & Plan Assessment & Plan (1) Atherosclerotic cardiovascular disease: Code(s): I25.10 - Atherosclerotic heart disease of [place] coronary artery without angina pectoris Category: Medical (2) NSTEMI (non-ST elevated myocardial infarction): Code(s): I21.4 - Non-ST elevation (NSTEMI) myocardial infarction Category: Medical (3) Cardiomyopathy: Code(s): I42.9 - Cardiomyopathy, unspecified Category: Medical (4) Heart block: Code(s): I45.9 - Conduction disorder, unspecified Category: Medical Plan In the last echocardiogram, LVEF is 45-50% with no wall motion abnormalities. In the previous study, LVEF was 46% with wall motion abnormalities thought to be from underlying coronary disease. Prior EKG with Mobitz type 1 Wenckebach heart block. In the Holter, underlying rhythm is sinus with an average rate of 55/Min. Frequent Mobitz type 1 second-degree heart block with evidence of PVCs. Overall, suspected coronary disease, mid range LVEF, many comorbidities including dementia, cirrhosis, probable portal hypertension, splenomegaly, chronic kidney disease. Hence recommend conservative care only. There is mention of statins being tried in the past but apparently LFTs went up and there was stopped. With his extensive medical history, probably not re-attempt. He is not suitable for Repatha or Praluent. Orders: Orders ECG 3 day holter monitor 6 Months I45.9 - Conduction disorder, unspecified Coding Level of Care Code Est Pt Level 4 (23228) Diagnoses Atherosclerotic cardiovascular disease I25.10 NSTEMI (non-ST elevated myocardial infarction) I21.4 Cardiomyopathy I42.9 Heart block I45.9
[2024-03-02 10:40] VITALS: BP 124/68; PULSE 72; BMI 25.3
== END 2024-03-02 11:07 | disposition home or self-care (01) ==
PROVIDERS: PCP Nurse Practitioner Acute Care; Referring Provider Internal Medicine; Visit Provider Internal Medicine
DX: I25.10 Atherosclerotic heart disease of native coronary artery without angina pectoris (principal); I21.4 Non-ST elevation (NSTEMI) myocardial infarction; I42.9 Cardiomyopathy, unspecified; I45.9 Conduction disorder, unspecified
CPT/HCPCS: 99214

== ENCOUNTER → 2024-03-02 10:18 | Outpatient (BNVA) | payer MEDICARE, SELFPAY | PROVIDERS: PCP Nurse Practitioner Acute Care; Visit Provider Internal Medicine | DX: I25.10 Atherosclerotic heart disease of native coronary artery without angina pectoris (principal); I21.4 Non-ST elevation (NSTEMI) myocardial infarction; I42.9 Cardiomyopathy, unspecified; I45.9 Conduction disorder, unspecified | CPT/HCPCS: 99212 ==

== ENCOUNTER 2024-05-06 13:52 | Inpatient (IN) | payer OTHER, SELFPAY ==
--- NOTE | ~2024-05-06 | CT_ITS ---
EXAMINATION: CT HEAD WITHOUT CONTRAST CT ANGIOGRAM HEAD CT ANGIOGRAM NECK CLINICAL INFORMATION: Speech difficulty and right facial droop. COMPARISON: CT head from 02/06/2020. CTA head and neck from 01/30/2020. TECHNIQUE: Initial noncontrast copyright clerk imaging of the head and neck was performed. Noncontrast head CT was also performed. Test bolus sequences followed by intravenous administration 70 mL of Omnipaque 350. Helical imaging was performed in the axial plane from the aortic arch to the skull vertex. Delayed postcontrast imaging of the head was also performed. The data was processed at the veterinary surgery technologist's workstation for generation of MIP sequences. Angled MIPs and volume rendered reformatted images were also generated at an offline 3D workstation. Stenoses are assessed in accordance with NASCET criteria unless otherwise indicated. This CT examination was performed using dose optimization techniques as appropriate, variously including the following: *Automated exposure control. *Adjustment of mA and/or kV according to patient size (this includes techniques or standardized protocols for targeted exams where dose is matched to indication/reason for exam; i.e. extremities or head). *Use of iterative reconstruction technique. DLP: 2202 mGy-cm FINDINGS: CT Head: There is no evidence of acute intracranial hemorrhage or edematous territorial infarction. Barton-white matter differentiation is preserved. Scattered and partially confluent hypoattenuation in the periventricular and deep white matter are consistent with moderate microangiopathy. The ventricles are normal in morphology and size. No evidence for obstructive hydrocephalus. No abnormal mass effect or midline shift. No extra-axial fluid collections. No pathologic intra-axial enhancement. No acute soft tissue or osseous abnormalities. Mild mucosal thickening of the paranasal sinuses. The mastoid air cells and middle ear cavities are clear. CT Neck: The thyroid gland and remaining cervical soft tissues are within normal limits. 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 Ankylosis of the C7-T1 facets. Advanced degenerative disc disease from C3-T3 with disc-osteophyte complex formation. There appears to be at least mild spinal canal stenosis at C3-C4. Moderately exuberant bridging anterior osteophytosis from C3-T1. Facet and uncovertebral joint arthropathy leads to osseous encroachment on the neural foramina from C2-C7. CT Upper Chest: The visualized lung apices and upper mediastinum are within normal limits. Neck CTA: Aortic Arch: Normal contour and caliber with moderate calcific atherosclerotic disease. Classic 3 vessel branching pattern of the aortic arch. Great Vessel Origins: No significant stenosis of the branch origins. Right Common Carotid Artery: No focal stenosis or occlusion. Cervical Right Internal Carotid Artery: Mixed fibrofatty and calcific atherosclerotic disease of the carotid bulb and proximal internal carotid artery causing high-grade (greater than 90%) stenosis 1 cm from its origin (progressed compared to 2020). Left Common Carotid Artery: No focal stenosis or occlusion. Cervical Left Internal Carotid Artery: Mixed fibrofatty and calcific atherosclerotic disease of the carotid bulb and proximal internal carotid artery causing 50% stenosis (progressed compared to 2020). Cervical Right Vertebral Artery: Dominant. No focal stenosis or occlusion. Cervical Left Vertebral Artery: Atherosclerotic disease causes mild stenosis of the origin. No additional focal stenosis or occlusion. Brain CTA: Intracranial Internal Carotid Arteries: Calcific atherosclerotic disease of the intracranial internal carotid arteries without occlusion. Multifocal moderate to high-grade stenosis of the cavernous and and paraophthalmic segments of the right ICA. Right Anterior Cerebral Artery: The A1 segment is diminutive. Normal opacification of the distal SAM segments. Left Anterior Cerebral Artery: Normal A1 segment. Normal opacification of the distal SAM segments. Anterior Communicating Artery: Normal. Right Middle Cerebral Artery: Normal M1 segment of the MCA without focal stenosis or occlusion. Normal arborization of the distal segments. Left Middle Cerebral Artery: No occlusion. Focal high-grade stenosis of the proximal M1 segment with distal reconstitution . Normal arborization of the distal segments. Right Vertebral Artery: Mild atherosclerotic irregularity without occlusion. Normal opacification of the proximal segments of the posterior inferior cerebellar artery. Left Vertebral Artery: Subtotal occlusion proximal to the origin of the posterior inferior cerebellar artery. Reconstitution distally. Normal opacification of the proximal segments of the posterior inferior cerebellar artery. Basilar Artery: Normal without focal stenosis or occlusion. Normal appearance of the proximal superior cerebellar arteries. Right Posterior Cerebral Artery: Normal P1 segment. High-grade stenosis of the P2 segment. Reconstitution distally. Left Posterior Cerebral Artery: The P1 segment is diminutive. origin of the COMPLIANCE MGR with robust opacification of the posterior communicating artery. High-grade stenosis of the P2 segment. Reconstitution distally. Normal opacification of the superior sagittal, straight, transverse, and sigmoid sinuses. CT/CT head for STROKE IMPRESSION: 1. No evidence of acute intracranial hemorrhage or edematous territorial infarction. Moderate underlying microangiopathy and generalized cerebral volume loss. 2. CTA without proximal occlusion. 3. Multifocal high-grade atherosclerotic stenoses of the anterior and posterior circulation (progressed compared to 2019). - Greater than 90% stenosis of the origin of the right ICA. - 50% stenosis of the proximal left ICA. - Moderate to high-grade stenoses of the cavernous and paraophthalmic segments of the right ICA. - Focal high-grade stenosis of the proximal M1 segment of the left MCA. - Subtotal occlusion of the V4 segment of the left vertebral artery proximal to the origin of the posterior inferior cerebellar artery. - High-grade stenoses of the P2 segments of the bilateral manager pricing. 4. Advanced multilevel degenerative spondyloarthropathy of the cervical spine. Most notably on this limited exam without intrathecal contrast, there appears to be at least mild spinal canal stenosis at C3-C4. This critical result was discussed with Dr. Hernandez at 14:18 on 05/06/2024 and it was ascertained that the content and urgency of the report was understood at the time of direct communication. Electronically signed by: Khadar Butler DO 05/06/2024 02:34 PM [facility]
--- NOTE | ~2024-05-06 | MR_ITS ---
EXAMINATION: MR BRAIN WITHOUT CONTRAST CLINICAL INFORMATION: TIA versus stroke COMPARISON: Same day CTA head and neck TECHNIQUE: MRI of the brain was obtained using routine sequences without contrast. FINDINGS: Motion artifact is present. No acute intracranial hemorrhage or infarct. Scattered and confluent periventricular and deep white matter T2/FLAIR hyperintensities, nonspecific however commonly seen with small vessel ischemic disease. Diffuse prominence of the sulci with associated ex vacuo dilation of the ventricles compatible with global cerebral atrophy. No midline shift or hydrocephalus. No acute extra-axial fluid collections. The osseous structures are unremarkable. The pituitary gland, pineal gland and remaining midline structures are unremarkable. No orbital pathology. The paranasal sinuses and mastoid air cells are clear. MR/MR head/brain wo con IMPRESSION: Within the limitations of the study, 1. No acute intracranial abnormalities. 2. Global cerebral atrophy and chronic microangiopathy. Electronically signed by: Prosper Shields MD 05/06/2024 08:32 PM [facility] [place]
--- NOTE | ~2024-05-06 | CT_ITS ---
EXAMINATION: CT HEAD WITHOUT CONTRAST CT ANGIOGRAM HEAD CT ANGIOGRAM NECK CLINICAL INFORMATION: Speech difficulty and right facial droop. COMPARISON: CT head from 02/06/2020. CTA head and neck from 01/30/2020. TECHNIQUE: Initial noncontrast coping machine assembler imaging of the head and neck was performed. Noncontrast head CT was also performed. Test bolus sequences followed by intravenous administration 70 mL of Omnipaque 350. Helical imaging was performed in the axial plane from the aortic arch to the skull vertex. Delayed postcontrast imaging of the head was also performed. The data was processed at the dairy manufacturing technologist's workstation for generation of MIP sequences. Angled MIPs and volume rendered reformatted images were also generated at an offline 3D workstation. Stenoses are assessed in accordance with NASCET criteria unless otherwise indicated. This CT examination was performed using dose optimization techniques as appropriate, variously including the following: *Automated exposure control. *Adjustment of mA and/or kV according to patient size (this includes techniques or standardized protocols for targeted exams where dose is matched to indication/reason for exam; i.e. extremities or head). *Use of iterative reconstruction technique. DLP: 2202 mGy-cm FINDINGS: CT Head: There is no evidence of acute intracranial hemorrhage or edematous territorial infarction. Barton-white matter differentiation is preserved. Scattered and partially confluent hypoattenuation in the periventricular and deep white matter are consistent with moderate microangiopathy. The ventricles are normal in morphology and size. No evidence for obstructive hydrocephalus. No abnormal mass effect or midline shift. No extra-axial fluid collections. No pathologic intra-axial enhancement. No acute soft tissue or osseous abnormalities. Mild mucosal thickening of the paranasal sinuses. The mastoid air cells and middle ear cavities are clear. CT Neck: The thyroid gland and remaining cervical soft tissues are within normal limits. 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 Ankylosis of the C7-T1 facets. Advanced degenerative disc disease from C3-T3 with disc-osteophyte complex formation. There appears to be at least mild spinal canal stenosis at C3-C4. Moderately exuberant bridging anterior osteophytosis from C3-T1. Facet and uncovertebral joint arthropathy leads to osseous encroachment on the neural foramina from C2-C7. CT Upper Chest: The visualized lung apices and upper mediastinum are within normal limits. Neck CTA: Aortic Arch: Normal contour and caliber with moderate calcific atherosclerotic disease. Classic 3 vessel branching pattern of the aortic arch. Great Vessel Origins: No significant stenosis of the branch origins. Right Common Carotid Artery: No focal stenosis or occlusion. Cervical Right Internal Carotid Artery: Mixed fibrofatty and calcific atherosclerotic disease of the carotid bulb and proximal internal carotid artery causing high-grade (greater than 90%) stenosis 1 cm from its origin (progressed compared to 2020). Left Common Carotid Artery: No focal stenosis or occlusion. Cervical Left Internal Carotid Artery: Mixed fibrofatty and calcific atherosclerotic disease of the carotid bulb and proximal internal carotid artery causing 50% stenosis (progressed compared to 2020). Cervical Right Vertebral Artery: Dominant. No focal stenosis or occlusion. Cervical Left Vertebral Artery: Atherosclerotic disease causes mild stenosis of the origin. No additional focal stenosis or occlusion. Brain CTA: Intracranial Internal Carotid Arteries: Calcific atherosclerotic disease of the intracranial internal carotid arteries without occlusion. Multifocal moderate to high-grade stenosis of the cavernous and and paraophthalmic segments of the right ICA. Right Anterior Cerebral Artery: The A1 segment is diminutive. Normal opacification of the distal SAM segments. Left Anterior Cerebral Artery: Normal A1 segment. Normal opacification of the distal SAM segments. Anterior Communicating Artery: Normal. Right Middle Cerebral Artery: Normal M1 segment of the MCA without focal stenosis or occlusion. Normal arborization of the distal segments. Left Middle Cerebral Artery: No occlusion. Focal high-grade stenosis of the proximal M1 segment with distal reconstitution . Normal arborization of the distal segments. Right Vertebral Artery: Mild atherosclerotic irregularity without occlusion. Normal opacification of the proximal segments of the posterior inferior cerebellar artery. Left Vertebral Artery: Subtotal occlusion proximal to the origin of the posterior inferior cerebellar artery. Reconstitution distally. Normal opacification of the proximal segments of the posterior inferior cerebellar artery. Basilar Artery: Normal without focal stenosis or occlusion. Normal appearance of the proximal superior cerebellar arteries. Right Posterior Cerebral Artery: Normal P1 segment. High-grade stenosis of the P2 segment. Reconstitution distally. Left Posterior Cerebral Artery: The P1 segment is diminutive. origin of the FASHION EDITOR with robust opacification of the posterior communicating artery. High-grade stenosis of the P2 segment. Reconstitution distally. Normal opacification of the superior sagittal, straight, transverse, and sigmoid sinuses. CT/CT angio head neck STROKE IMPRESSION: 1. No evidence of acute intracranial hemorrhage or edematous territorial infarction. Moderate underlying microangiopathy and generalized cerebral volume loss. 2. CTA without proximal occlusion. 3. Multifocal high-grade atherosclerotic stenoses of the anterior and posterior circulation (progressed compared to 2019). - Greater than 90% stenosis of the origin of the right ICA. - 50% stenosis of the proximal left ICA. - Moderate to high-grade stenoses of the cavernous and paraophthalmic segments of the right ICA. - Focal high-grade stenosis of the proximal M1 segment of the left MCA. - Subtotal occlusion of the V4 segment of the left vertebral artery proximal to the origin of the posterior inferior cerebellar artery. - High-grade stenoses of the P2 segments of the bilateral field recruiter. 4. Advanced multilevel degenerative spondyloarthropathy of the cervical spine. Most notably on this limited exam without intrathecal contrast, there appears to be at least mild spinal canal stenosis at C3-C4. This critical result was discussed with Dr. Hernandez at 14:18 on 05/06/2024 and it was ascertained that the content and urgency of the report was understood at the time of direct communication. Electronically signed by: Khadar Butler DO 05/06/2024 02:34 PM [facility]
--- NOTE | 2024-05-06 13:57 | ECG_ITS ---
Test Reason : stroke Blood Pressure : / mmHG Vent. Rate : 074 BPM Atrial Rate : 090 BPM P-R Int : 000 ms QRS Dur : 126 ms QT Int : 426 ms P-R-T Axes : 035 011 004 degrees QTc Int : 472 ms Sinus rhythm with A-V dissociation with junctional beats Right bundle branch block Abnormal ECG When compared with ECG of 20-JUL-2022 10:03, Premature ventricular complexes are no longer Present AV dissociation is noted Referred By: Monico Hernandez Electronically Signed By:KO HERMOSILLO MD
--- NOTE | 2024-05-06 13:57 | ED.GENADULT ---
HPI - General Adult General Chief complaint: Stroke Stated complaint: STROKE ALERT,LKW 900,RT SIDE WKNSS Time Seen by Provider: 05/06/24 13:56 History of Present Illness ED Provider: David FALL narrative: The patient is an 78-year-old male who lives at the [facility] [place]. According to paramedics staff at the facility state that they know that he was well at 09:00 this morning. He was then not seen for a few hours and when he was next checked on he was on the floor, apparently having slid out of bed. He seemed to have right-sided weakness and a change in his speech. An ambulance was called and he was brought to the hospital. Paramedics believe he is not on anticoagulation. He had apparently been well earlier this morning but has not been seen since 09:00. Later it was learned that he had been seen at his neurological baseline as late as 12:30PM. he apparently has a history of previous TIAs. No chest pain or shortness of breath. No abdominal pain. No nausea vomiting. Related Data Home Medications ?Medication ?Instructions ?Recorded ?Confirmed allopurinol 100 mg tablet 50 mg PO DAILY 12/18/21 05/06/24 aspirin 81 mg chewable tablet 81 mg PO DAILY 12/18/21 05/06/24 cholecalciferol (vitamin D3) 50 50 mcg PO DAILY 12/18/21 05/06/24 mcg (2,000 unit) tablet loratadine 10 mg tablet 10 mg PO BEDTIME 12/18/21 05/06/24 pantoprazole 40 mg tablet,delayed 40 mg PO BID 06/17/23 05/06/24 release mirtazapine 30 mg tablet 30 mg PO DAILY 03/02/24 05/06/24 multivitamin 1 tab PO DAILY 05/06/24 05/06/24 nystatin 100,000 unit/gram topical 1 appl topical BID PRN groin rash 05/06/24 05/06/24 powder thiamine HCl (vitamin B1) 100 mg 100 mg PO DAILY 05/06/24 05/06/24 tablet Allergies Allergy/AdvReac Type Severity Reaction Status Date / Time lisinopril [LISINOPRIL] Allergy Mild UNKNOWN Verified 05/06/24 14:25 baclofen [BACLOFEN] Allergy Unknown UNKNOWN Verified 06/17/23 14:06 shellfish derived Allergy Unknown UNKNOWN Verified 06/17/23 14:06 [SHELLFISH DERIVED] Review of Systems Review of Systems: Yes all other systems are reviewed and are negative [facility] Past Medical History Medical History CKD (chronic kidney disease) New onset of congestive heart failure Diverticulitis Dementia Hoffman esophagus Malignant neoplasm of prostate Cirrhosis of liver Surgical History H/O radical prostatectomy Family History Family History Father CAD (coronary artery disease) Social History Social History Housing: Assisted Living Facility Alcohol intake: former Patient Tobacco Use Status: Never used Tobacco Smoked in Last 30 Days: No Use of substances other than those prescribed or required for medical reasons: No Advance Directives: Yes Advance Directives on File: Yes Advance Directives Date on File: 12/22/21 Nutrition Risks: On aspiration precautions service: Yes Current occupational status: retired Physical Exam ED Vital Signs: Vital Signs - 24 hr 05/06/24 14:23 05/06/24 14:34 05/06/24 15:39 Temperature 97.9 F Pulse Rate 70 70 98 Respiratory Rate 16 16 18 Blood Pressure 174/78 H 147/86 H 160/88 H Pulse Oximetry 96 96 97 Oxygen Delivery Method Room Air Room Air Room Air BMI result Body Mass Index 25.0 Const Other: The patient is an older man who was awake and alert. He had obvious right facial weakness and some slight slurring of speech. HENHI Other: On the patient's initial presentation on the ambulance stretcher he had a definite right facial droop. Eyes Other: pupils are round equal, extraocular movements intact, visual bearden are intact to confrontation. Neck Neck: Yes full ROM Resp Effort & Inspection: normal respiratory effort Auscultation: clear to auscultation bilaterally Cardio Rate: regular rate Rhythm: regular rhythm Heart sounds: S1 normal heart sound present and S2 normal heart sound present GI Other: abdomen is soft and nontender Skin Other: skin is pale and dry Neuro Other: the patient is awake and alert with a normal level of consciousness. He was oriented and followed commands. On my initial exam he had a distinct right facial droop. Visual bearden are intact to confrontation. Eye movements are normal. Speech has some slight slurring but no aphasia. There was no weakness in the extremities. No pronator drift. Finger-nose was normal. Heel-trujillo was normal. Sensation normal. No neglect. NIH stroke scale is 2 with a point for facial droop and for mild speech slurring. Medications Administered Generic Name Dose Route Start Last Admin Trade Name Freq PRN Reason Stop Dose Admin Amlodipine Besylate 2.5 mg 05/07/24 11:50 05/07/24 12:25 Amlodipine Besylate 2.5 Mg Tablet PO 2.5 mg DAILY [facility] Administration Protocol Aspirin 81 mg 05/06/24 16:25 05/07/24 09:03 Aspirin 81 Mg Tab.Chew PO Not Given DAILY SERGIO Atorvastatin Calcium 40 mg 05/06/24 21:00 05/06/24 21:07 Atorvastatin Calcium 40 Mg Tablet PO Not Given BEDTIME [facility] Heparin Sodium (Porcine) 5,000 unit 05/06/24 18:00 05/07/24 06:38 Heparin Sodium,Porcine 5,000 Unit/Ml Vial SUBCUT 5,000 unit Q12H SERGIO Administration Discontinued Medications Generic Name Dose Route Start Last Admin Trade Name Freq PRN Reason Stop Dose Admin Sodium Chloride 1,000 mls @ 999 mls/hr 05/06/24 14:30 05/06/24 15:52 Ns IV 05/06/24 15:30 Infused .Q1H1M SERGIO Infusion Iohexol 100 ml 05/06/24 14:10 05/06/24 14:11 Iohexol 350 Mg/Ml 100 Ml Infus..Btl IV 05/06/24 14:11 70 ml ONCE ONE Administration Medical Decision Making Medical Decision Making [facility] Narrative: The patient is an 78-year-old male who presents with acute stroke-like symptoms. He was seen on arrival and had an obvious right facial droop and some mild slurring of speech. Initial information from paramedics was that he had last been known to be well at 09:00. This would put him outside the window for consideration of thrombolytics. He was nevertheless made a code stroke and sent for a noncontrast head CT and a CT angiogram of the head and neck. The noncontrast head CT showed no acute findings. On re-examination the patient's facial droop was improving. Subsequently additional information from the patient's snf suggested that he had been seeing at his neurological baseline at 12:30PM, possibly putting him in the window for consideration of thrombolytics therapy. However at that point his symptoms were improving sufficiently that I did not feel thrombolytics were indicated. I discussed the case with Dr. Og and we agreed on this point. The patient will be admitted for further workup for what will probably either be a small stroke or TIA. Lab Data 05/07/24 05:29 05/07/24 05:29 Labs: Lab Results 05/06/24 05/06/24 05/06/24 Range/Units 13:56 14:05 14:37 WBC 6.1 (4.8-10.8) X10*3/uL RBC 4.85 (4.60-5.80) X10*6/uL Hgb 13.6 L (14.0-18.0) g/dl Hct 40.0 L (42.0-52.0) % MCV 82.5 (80.0-98.0) fL MCH 28.0 (27.0-33.0) pg MCHC 34.0 (31.0-36.0) g/dl RDW 14.7 (11.0-16.0) % Plt Count 183 (160-400) X10*3/uL MPV 10.0 (9.4-12.4) fL Immature Gran % (Auto) 0.5 H (0.0-0.4) % Neut % (Auto) 52.7 (45-73) % Lymph % (Auto) 31.8 (20-40) % Louisa % (Auto) 11.3 H (2-11) % Eos % (Auto) 2.9 (0-4) % Baso % (Auto) 0.8 (0-2) % Lymph # (Auto) 2.0 (1.2-4.9) X10*3/uL Louisa # (Auto) 0.7 (0.1-1.2) X10*3/uL Eos # (Auto) 0.2 (0.0-0.4) X10*3/uL Baso # (Auto) 0.1 (0.0-0.2) X10*3/uL Abs Immat Gran (auto) 0.03 (0.00-0.03) X10*3/uL Absolute Neuts (auto) 3.2 (2.0-8.3) x10*3/uL Absolute Nucleated RBC 0.000 (0.0-0.012) X10*3/uL Nucleated RBC % (auto) 0.0 (0.0-0.2) /100WBC Hold Purple Top SEE NOTE PT 12.1 (10.9-12.4) SEC Whole Blood PT 13.0 (11.1-13.5) sec INR 1.0 (0.9-1.1) Whole Blood INR 1.1 (0.9-1.1) APTT 29.2 (26.0-36.8) SEC Sodium 140 (135-145) mmol/L Potassium 4.6 (3.3-5.1) mmol/L Chloride 108 (96-108) mmol/L Carbon Dioxide 24 (22-29) mmol/L Anion Gap 13 (12-20) BUN 15 (9-16) mg/dL Creatinine 2.19 H (0.5-1.4) mg/dL Estim Creat Clear Calc 27.7 Estimated GFR 29 POC Glucose 129 H (60-115) mg/dL Random Glucose 100 (60-115) mg/dL Calcium 9.0 (8.4-10.2) mg/dL Troponin I High Sens 13.8 (<3.5-35.0) ng/L Triglycerides 185 H (<150) mg/dL Cholesterol 157 (<200) mg/dL LDL Cholesterol, Calc 93 (<100) mg/dL HDL Cholesterol 27 L (>40) mg/dL Discharge Plan Discharge Clinical Impression: Stroke Qualifiers: CVA mechanism: thrombosis Precerebral and cerebral artery: unspecified cerebral artery Qualified Code(s): I63.30 - Cerebral infarction due to thrombosis of unspecified cerebral artery Patient Disposition: Admitted As Inpatient
[2024-05-06 14:10] LABS: ~PT, ~INR - Anti Coag Clinic 1.1 (0.9-1.1)
[2024-05-06 14:11] LABS: Glucose, Whole Blood 129 mg/dL (60-115)
[2024-05-06 14:11] LABS: MANUAL DIFF FLAG NO
[2024-05-06] MEDS: iohexoL 350 MG/ML 100 ML INFUS..BTL IV (14:11)
[2024-05-06 14:17] LABS: Basophils Absolute Auto 0.1 X10*3/uL (0.0-0.2); Basophils Percent Auto 0.8 % (0-2); Eosinophils Absolute Auto 0.2 X10*3/uL (0.0-0.4); Eosinophils Percent Auto 2.9 % (0-4); Hemoglobin 13.6 g/dl (14.0-18.0); Imm Gran Abs Auto 0.03 X10*3/uL (0.00-0.03); Imm Gran Pct Auto 0.5 % (0.0-0.4); Lymphocytes Percent Auto 31.8 % (20-40); Mean Corpuscular Volume 82.5 fL (80.0-98.0); Monocytes Absolute Auto 0.7 X10*3/uL (0.1-1.2); Monocytes Percent Auto 11.3 % (2-11); Neutrophils Absolute Auto 3.2 x10*3/uL (2.0-8.3); Neutrophils Percent Auto 52.7 % (45-73); Platelet Count 183 X10*3/uL (160-400); Red Blood Count 4.85 X10*6/uL (4.60-5.80); Red Cell Distribution Width 14.7 % (11.0-16.0); White Blood Count 6.1 X10*3/uL (4.8-10.8)
[2024-05-06 14:23] VITALS: BP 132/81; BP 174/78; PULSE 70; PULSE 75; RESP 16; TEMP 36.6; O2SAT 96; O2SAT 99; BMI 25.0
[2024-05-06] MEDS: 0.9 % Sodium Chloride 1,000 ML 999 ML IV (14:31)
[2024-05-06 14:34] VITALS: BP 147/86; PULSE 70; RESP 16; O2SAT 96
[2024-05-06 14:34] LABS: Troponin-I High Sensitivity 13.8 ng/L (<3.5-35.0)
--- NOTE | 2024-05-06 14:40 | MHC.STROKE ---
Called to ED for Stroke Alert. Upon arrival, patient in room [address] scans. Pt states that he feels well and has no complaints. He is able to state where he is and where he came from. He reports that he was bending down to look for a brush in the bottom drawer. Staff then found patient on the floor. Staff reported that the patient had right sided weakness, right facial droop and slightly slurred speech. Staff states that he normally ambulates independently. He was last seen well at 1230. Pt awake, alert and answering questions appropriately. Pt is hard of hearing. Tongue midline. Mild right sided facial droop noted. Equal bilateral arm and leg strength. No palmar drift. Stroke Education provided to patient and family member (ex-) who is at the bedside. Stroke Pamphlet provided. Will continue to assist as needed. Dr. Hernandez reports NIH scale of 2
[2024-05-06 14:52] LABS: Prothrombin Time 12.1 SEC (10.9-12.4)
--- NOTE | 2024-05-06 14:53 | PC.NURSE ---
Pt presents to ED via EMS from [facility], per facility, found on floor next to bed with right sided facial droop, right sided weakness and slurred speech. LKWT around 1230p per facility. Alert and oriented, ambulatory at baseline. Stroke alert by EMS, on arrival noted to have right sided facial droop. No weakness unilateral. No slurred speech. No blood thinners or obvious trauma. Alert and oriented, breathing even and unlabored, STROKE PROTOCOL activated here. This RN remained with pt during CT, no complications or incidences. VSS, family at the bedside now. Facial droop has improved.
[2024-05-06 14:54] LABS: Partial Thromboplastin Time 29.2 SEC (26.0-36.8)
[2024-05-06 14:56] LABS: Stroke Lab Use COMPLETE
[2024-05-06 15:00] LABS: Anion Gap 13 (12-20); Blood Urea Nitrogen 15 mg/dL (9-16); Carbon Dioxide 24 mmol/L (22-29); Chloride 108 mmol/L (96-108); Cholesterol 157 mg/dL (<200); Creatinine Clr Calc Pharmacy 27.7; Estimated Glomerular Filt Rate 29; Glucose Random 100 mg/dL (60-115); HDL Cholesterol 27 mg/dL (>40); LDL Cholesterol Calculated 93 mg/dL (<100); Potassium 4.6 mmol/L (3.3-5.1); Sodium 140 mmol/L (135-145); Triglycerides 185 mg/dL (<150)
--- NOTE | 2024-05-06 15:29 | P.HPHOSP_ITS ---
History of Present Illness Date of Service: 05/06/24 Chief Complaint: slurred speech 78-year-old man presenting from the [facility] after he was found on the floor, apparently he had slid out of bed by his ex- said he was looking for something in his bottom drawer. He was noted to have right-sided weakness and slurred speech and an ambulance was called. In the ER head CT showed no evidence of acute intracranial hemorrhage or territorial infarction but noted moderate underlying microangiopathy and generalized cerebral volume loss. CTA without proximal occlusion but multifocal high-grade arthrosclerotic stenosis of the anterior and posterior circulation. During examination patient was not noted to have any weaknesses in the upper or lower extremities and speech was clear. Creatinine was also noted to be elevated at 2.19. Stable vital signs with mildly elevated blood pressure highest reading of 174/78. He does have a history of TIAs in the past so it is possible that this may have been a TIA but will admit him to rule out stroke as well. Review of Systems 2 Review of Systems: Denies any recent fever chills or decrease in appetite respiratory denies any shortness of breath or cough cardiovascular denied chest pain gastrointestinal denies any dysphagia abdominal pain nausea vomiting or diarrhea genitourinary denies any dysuria frequency or hematuria musculoskeletal denies any joint pain or swelling neuropsych denies any weakness or seizures all other systems reviewed are negative [facility] Medical History CKD (chronic kidney disease) New onset of congestive heart failure Diverticulitis Dementia Hoffman esophagus Malignant neoplasm of prostate Cirrhosis of liver Family History Father CAD (coronary artery disease) Surgical History H/O radical prostatectomy Social History Housing: Assisted Living Facility Alcohol intake: former Patient Tobacco Use Status: Never used Tobacco Smoked in Last 30 Days: No Use of substances other than those prescribed or required for medical reasons: No Advance Directives: Yes Advance Directives on File: Yes Advance Directives Date on File: 12/22/21 service: Yes Current occupational status: retired Meds Allergies Allergy/AdvReac Type Severity Reaction Status Date / Time lisinopril [LISINOPRIL] Allergy Mild UNKNOWN Verified 05/06/24 14:25 baclofen [BACLOFEN] Allergy Unknown UNKNOWN Verified 06/17/23 14:06 shellfish derived Allergy Unknown UNKNOWN Verified 06/17/23 14:06 [SHELLFISH DERIVED] Active Medications: Current Medications Sodium Chloride (Ns) 1,000 mls @ 999 mls/hr IV .Q1H1M SERGIO Stop: 05/06/24 15:30 Last Admin: 05/06/24 14:31 Dose: 999 mls/hr Home Medications ?Medication ?Instructions ?Recorded ?Confirmed ?Last Taken ?Type allopurinol 100 mg tablet 50 mg PO Q2D 12/18/21 03/02/24 12/16/21 History aspirin 81 mg chewable tablet 81 mg PO DAILY 12/18/21 03/02/24 12/17/21 History cholecalciferol (vitamin D3) 50 50 mcg PO DAILY 12/18/21 03/02/24 12/17/21 History mcg (2,000 unit) tablet loratadine 10 mg tablet 10 mg PO BEDTIME 12/18/21 03/02/24 12/17/21 History acetaminophen 325 mg capsule 650 mg PO Q6H PRN 06/06/22 03/02/24 Unknown History loperamide 2 mg capsule 2 mg PO Q6H PRN 06/06/22 03/02/24 Unknown History magnesium hydroxide 400 mg/5 mL 5 ml PO BEDTIME 12/12/22 03/02/24 Unknown History oral suspension (Dulcolax (magnesium hydroxide)) ondansetron HCl 4 mg tablet 4 mg PO Q8H 12/12/22 03/02/24 Unknown History pantoprazole 40 mg tablet,delayed 40 mg PO DAILY 06/17/23 03/02/24 Unknown History release famotidine 20 mg tablet 20 mg PO DAILY 03/02/24 03/02/24 Unknown History mirtazapine 30 mg tablet 30 mg PO DAILY 03/02/24 03/02/24 Unknown History polyethylene glycol 3350 17 17 g PO DAILY 03/02/24 03/02/24 Unknown History gram/dose oral powder (Miralax) Physical Exam 2 Vital Signs and Narrative: Vital Signs: Last Vital Signs Temp 97.9 F 05/06/24 14:23 Pulse 70 05/06/24 14:34 Resp 16 05/06/24 14:34 BP 147/86 H 05/06/24 14:34 Pulse Ox 96 05/06/24 14:34 O2 Del Method Room Air 05/06/24 14:34 BMI result Body Mass Index 25.0 Appearing in no acute distress head is normocephalic atraumatic eyes pupils are PERRLA sclera is anicteric mouth throat mucous membranes are intact and moist neck is supple no lymphadenopathy, no JVD noted lung sounds are clear to auscultation heart regular rate rhythm, clear S1, S2 positive bowel sounds, abdomen is soft, nontender neuro patient is alert x3, no focal deficits 5/5 strength to upper and lower extremities without facial droop or slurred speech Results Labs 05/06/24 14:05 05/06/24 14:37 Labs: Laboratory Results - last 24 hr 05/06/24 05/06/24 05/06/24 13:56 14:05 14:37 MCV 82.5 MCH 28.0 MCHC 34.0 RDW 14.7 Plt Count 183 MPV 10.0 Immature Gran % (Auto) 0.5 H Neut % (Auto) 52.7 Lymph % (Auto) 31.8 Dade % (Auto) 11.3 H Eos % (Auto) 2.9 Baso % (Auto) 0.8 Lymph # (Auto) 2.0 Dade # (Auto) 0.7 Eos # (Auto) 0.2 Baso # (Auto) 0.1 Abs Immat Gran (auto) 0.03 Absolute Neuts (auto) 3.2 Absolute Nucleated RBC 0.000 Nucleated RBC % (auto) 0.0 Hold Purple Top SEE NOTE PT 12.1 Whole Blood PT 13.0 INR 1.0 Whole Blood INR 1.1 APTT 29.2 Anion Gap 13 Estim Creat Clear Calc 27.7 Estimated GFR 29 POC Glucose 129 H Random Glucose 100 Calcium 9.0 Troponin I High Sens 13.8 Triglycerides 185 H Cholesterol 157 LDL Cholesterol, Calc 93 HDL Cholesterol 27 L Imaging Radiologist's Impressions: Impressions Head CT 05/06/24 13:57 IMPRESSION: 1. No evidence of acute intracranial hemorrhage or edematous territorial infarction. Moderate underlying microangiopathy and generalized cerebral volume loss. 2. CTA without proximal occlusion. 3. Multifocal high-grade atherosclerotic stenoses of the anterior and posterior circulation (progressed compared to 2019). - Greater than 90% stenosis of the origin of the right ICA. - 50% stenosis of the proximal left ICA. - Moderate to high-grade stenoses of the cavernous and paraophthalmic segments of the right ICA. - Focal high-grade stenosis of the proximal M1 segment of the left MCA. - Subtotal occlusion of the V4 segment of the left vertebral artery proximal to the origin of the posterior inferior cerebellar artery. - High-grade stenoses of the P2 segments of the bilateral aerospace products sales engineer. 4. Advanced multilevel degenerative spondyloarthropathy of the cervical spine. Most notably on this limited exam without intrathecal contrast, there appears to be at least mild spinal canal stenosis at C3-C4. This critical result was discussed with Dr. Hernandez at 14:18 on 05/06/2024 and it was ascertained that the content and urgency of the report was understood at the time of direct communication. Electronically signed by: Khadar Butler DO 05/06/2024 02:34 PM EST RP Head/Neck CTA 05/06/24 14:09 IMPRESSION: 1. No evidence of acute intracranial hemorrhage or edematous territorial infarction. Moderate underlying microangiopathy and generalized cerebral volume loss. 2. CTA without proximal occlusion. 3. Multifocal high-grade atherosclerotic stenoses of the anterior and posterior circulation (progressed compared to 2019). - Greater than 90% stenosis of the origin of the right ICA. - 50% stenosis of the proximal left ICA. - Moderate to high-grade stenoses of the cavernous and paraophthalmic segments of the right ICA. - Focal high-grade stenosis of the proximal M1 segment of the left MCA. - Subtotal occlusion of the V4 segment of the left vertebral artery proximal to the origin of the posterior inferior cerebellar artery. - High-grade stenoses of the P2 segments of the bilateral aerospace products sales engineer. 4. Advanced multilevel degenerative spondyloarthropathy of the cervical spine. Most notably on this limited exam without intrathecal contrast, there appears to be at least mild spinal canal stenosis at C3-C4. This critical result was discussed with Dr. Hernandez at 14:18 on 05/06/2024 and it was ascertained that the content and urgency of the report was understood at the time of direct communication. Electronically signed by: Khadar Butler DO 05/06/2024 02:34 PM EST RP Assessment and Plan (1) Atherosclerotic cardiovascular disease: Status: Acute Plan 78-year-old man admitted with TIA versus stroke with right-sided weakness and slurred speech TIA versus stroke History of TIAs in the past Symptoms have resolved Monitor on telemetry Neurology consultation Vascular surgery consultation for multiple areas of stenosis from CTA MRI Echocardiogram PT/OT Failed bedside swallow, speechtherapy consult ordered Aspirin and statin CLARK Possibly related to hypovolemia but really unknown etiology Received 1 L of IV fluid in the ER Check BNP in the morning and if not improved or worsened consult Nephrology History of coronary artery disease Aspirin and statin DVT prophylaxis with heparin DNR Quality Stroke Does the patient have a stroke diagnosis?: No VTE Prior VTE?: No VTE Risk Level:: Medical - moderate - high VTE Device Contraindication: Treatment Not Indicated VTE Drug Contraindication: N/A - Med Ordered
[2024-05-06 15:39] VITALS: BP 160/88; PULSE 98; RESP 18; O2SAT 97
[2024-05-06 17:48] VITALS: BP 167/64; PULSE 50; RESP 18; O2SAT 94
[2024-05-06] MEDS: Heparin Sodium,Porcine 5,000 UNIT/ML VIAL 5000 UNIT SUBCUT (17:57)
--- NOTE | 2024-05-06 18:06 | PC.NURSE ---
Provider alerted of failing bedside swallow, awaiting speech for official eval. No PO meds given at this time
--- NOTE | 2024-05-06 18:25 | PC.NURSE ---
Tried to call speech X3 with no answer to do eval
--- NOTE | 2024-05-06 18:56 | PHA.MEDREC ---
Pharmacy Consult ? Medication Reconciliation Pharmacy has completed the medication reconciliation. Pt's med list obtained from [facility] at [place]
--- NOTE | 2024-05-06 21:07 | PC.NURSE ---
Pt is currenty NPO pending speech eval. Wally text sent to Dr. Laguerre regarding his [address] Laguerre ok to hold med at this time.
[2024-05-06 22:13] VITALS: BP 171/90; PULSE 62; RESP 14; TEMP 36.6; O2SAT 97
[2024-05-07] VITALS (12 sets, daily range): BP systolic 129–181; BP diastolic 61–93; PULSE 45–76; RESP 12–20; TEMP 36–37.1; O2SAT 95–98
--- NOTE | 2024-05-07 02:24 | PC.NURSE ---
Pts heart rate noted to be 38 bpm briefly and then rise again to the 50's. Pt is sleeping but arousable to verbal stimuli, oriented and has been using the urinal independently. [place] text sent to Dr Laguerre. Per Dr Laguerre no interventions needed at this time.
[2024-05-07 05:43] LABS: MANUAL DIFF FLAG NO
[2024-05-07 05:46] LABS: Basophils Percent Auto 0.5 % (0-2); Eosinophils Absolute Auto 0.2 X10*3/uL (0.0-0.4); Eosinophils Percent Auto 2.8 % (0-4); Hematocrit 37.9 % (42.0-52.0); Hemoglobin 12.7 g/dl (14.0-18.0); Imm Gran Abs Auto 0.04 X10*3/uL (0.00-0.03); Imm Gran Pct Auto 0.7 % (0.0-0.4); Lymphocytes Absolute Auto 2.1 X10*3/uL (1.2-4.9); Lymphocytes Percent Auto 34.8 % (20-40); Mean Corpuscular HGB Conc 33.5 g/dl (31.0-36.0); Mean Corpuscular Hemoglobin 27.7 pg (27.0-33.0); Mean Corpuscular Volume 82.8 fL (80.0-98.0); Mean Platelet Volume 9.4 fL (9.4-12.4); Monocytes Absolute Auto 0.7 X10*3/uL (0.1-1.2); Monocytes Percent Auto 10.8 % (2-11); Neutrophils Percent Auto 50.4 % (45-73); Platelet Count 165 X10*3/uL (160-400); Red Blood Count 4.58 X10*6/uL (4.60-5.80); Red Cell Distribution Width 14.7 % (11.0-16.0)
[2024-05-07 06:04] LABS: Anion Gap 14 (12-20); Blood Urea Nitrogen 14 mg/dL (9-16); Calcium 8.8 mg/dL (8.4-10.2); Carbon Dioxide 20 mmol/L (22-29); Chloride 111 mmol/L (96-108); Cholesterol 155 mg/dL (<200); Creatinine Clr Calc Pharmacy 31.5; Estimated Glomerular Filt Rate 34; Glucose Random 90 mg/dL (60-115); HDL Cholesterol 25 mg/dL (>40); LDL Cholesterol Calculated 103 mg/dL (<100); Potassium 4.3 mmol/L (3.3-5.1); Sodium 141 mmol/L (135-145); Triglycerides 139 mg/dL (<150)
[2024-05-07] MEDS: Heparin Sodium,Porcine 5,000 UNIT/ML VIAL 5000 UNIT SUBCUT ×2 (06:38→18:35)
--- NOTE | 2024-05-07 07:00 | CA_ITS ---
Transthoracic Echocardiogram Patient (Last, First, Middle): Clifford Ashby A Gender: Male Date of : 1945 Age: 78 Procedure Date: 05/07/2024 Procedure Type: Transthoracic Echocardiogram Location: ER Height: 177.8 cm Weight: 78.93 kg BSA: 1.97 m2 Heart Rate: 49 bpm BP: 181 / 84 mmHg Burn Nurse: SOLA Referring MD: Ellen Hernandez NP Drum Tester: Hardeep Haddad MD Symptoms: tia vs stroke Study Quality: Fair but adequate apical window ECG Rhythm: Undetermined Conclusions: - 1. [id number] LV systolic dysfunction with LVEF of 40-45% 2. Mild calcific aortic and mitral valve changes noted with normal cardiac valvular Dopplers 3. Upper limits of normal RV systolic pressures Findings Left Ventricle Normal left ventricular cavity size. There is normal left ventricular wall thickness. The left ventricular systolic function is mild to moderately decreased. The visually estimated ejection fraction is between 40-45%. Diastolic function is indeterminate on the basis of available data. Right Ventricle Moderately increased right ventricular cavity size. There is borderline right ventricular systolic function. Atria The left atrium is normal in size. Interatrial shunt cannot be excluded. The right atrium is likely dilated. Aortic Valve There is mild calcification of the aortic valve. There is no aortic valve stenosis. There is no aortic valve regurgitation. Mitral Valve There is mild anterior and posterior mitral leaflet thickening. There is mild mitral annular calcification. There is trace mitral valve regurgitation. There is no mitral valve stenosis. Pulmonic Valve The pulmonic valve was not well visualized. Tricuspid Valve Likely normal tricuspid valve structure and function. There is mild tricuspid valve regurgitation. Normal right atrial pressure. There is no evidence of pulmonary hypertension. Great Vessels The pulmonary artery was not well visualized. There is no dilatation of the ascending aorta measuring 3.20 cm. Small plaque is seen in the sino tubular ridge. Venous The inferior vena cava is normal in size and collapses greater than 50% with inspiration. Pericardium/Pleural The pericardium was not well visualized. Measurements 2D Linear Measurements IVSd: 0.89 0.6-0.9/0.6-1.0 cm LVIDd: 4.59 3.9-5.3/4.2-5.9 cm LVIDd Index: 2.33 2.4-3.2/2.2-3.1 cm/m2 LVIDs: 3.67 2.0-3.6 cm LVPWd: 0.92 0.7-1.1 cm LA Diam: 4.00 2.7-3.8/3.0-4.0 cm LAIDs Index: 2.03 1.5-2.3 cm/m2 LV Mass: 172.19 67-162/88-224 g LV Mass Index: 87.40 43-95/49-115 g/m2 LVOT Diam: 2.20 3.0+(-)1.3 cm 2D Systolic Function EF 4C: 39.30 >55% EF 2C: 41.70 >55% EF BiP: 42.40 >55% Mitral Valve MV Pk E: 0.63 MV PK A: 0.83 MV Decel Time: 182.00 E/A: 0.80 E'Lateral: 9.79 E'Medial: 6.64 E/E' Med: 9.50 E/E' Lat: 6.40 PHT: 53.00 MVA PHT: 4.15 Decel Will: 3.46 Aortic Valve AoV Pk Nixon: 1.11 AoV Pk Grad: 5.00 FE: 2.11 LVOT LVOT Pk Nixon: 0.66 LVOT Mn Nixon: 0.42 LVOT VTI: 0.16 LVOT Pk Grad: 2.00 LVOT Mn Grad: 1.00 LVOT Diam: 2.20 LVOT Area: 3.80 Diastolic Function MV Pk E: 0.63 MV Pk A: 0.83 E/A: 0.80 E'Medial: 6.64 E/E' Med: 9.50 E' Laterial: 9.79 E/E' Lat: 6.40 Right Ventricle TAPSE (mm): 17.50 TVS' Nixon: 10.40 Tricuspid Valve TR Pk Nixon: 2.86 TR Pk Grad: 33.00 RA Press: 3.00 RVSP: 36.00 Great Vessels Aorta Sinus of Valsalva: 3.40 2.0-3.5 cm Ao Asc: 3.20 2.1-3.4 cm Pulmonary Valve PV Pk Nixon: 0.68 Peak PV Grad: 2.00 Updated in Other Vendor System with Status of Final Hardeep Haddad MD electronically signed on 05/07/2024 11:52:36 AM with status of Final
--- NOTE | 2024-05-07 07:15 | PC.NURSE ---
Resumed care of pt at 0700, pt is resting comfortably in bed, pt repositioned, pt made aware of plan of care. Neuros intact at this time. Pt aware he is NPO until Speech eval. IV in place and flushing well. Pt able to talk in full sentences at this time, moving all his extremities. pt awaiting for bed placement upstairs
--- NOTE | 2024-05-07 09:31 | MHC.CM.PN ---
Plan is for Patient to return to L[facility]; CM has initiated and will follow for dc planning.
--- NOTE | 2024-05-07 11:26 | P.CONGS_ITS ---
<Statement entered by Sergio De Leon MD - 05/07/24 12:35> I have seen and evaluated the patient and agree with history, findings, assessment and plan documented by Chanelle Fajardo PA-c. Currently patient is stable. Noted to have high-grade carotid stenosis on CTA. Patient will require elective carotid endarterectomy. We will follow with you. Thank you for allowing us to assist in this patient's care. History of Present Illness Consult details Consult date: 05/07/24 <Chanelle Fajardo PA-C - Last Filed: 05/07/24 11:34> Narrative: We were consulted today for Clifford, a pleasant 78yo male patient, who presented to the ER for right-sided weakness and speech changes. He states that he was bending down and getting something from his drawers and they called 911 stating that he was having weakness and speech problems. He states this morning he does not recall any of that. He denies any dizziness, weakness, speech concerns this morning. He denies any headaches or lightheadedness. He states he feels well. <Chanelle Fajardo PA-C - Last Filed: 05/07/24 11:34> Review of Systems 2 Constitutional: Constitutional: Reports as per HPI and Denies weakness < Chanelle Fajardo PA-C - Last Filed: 05/07/24 11:34> ENT: Reports Normal hearing present and Denies dizziness <Chanelle Fajardo PA-C - Last Filed: 05/07/24 11:34> Cardiovascular: Cardiovascular: Reports as per HPI, Denies chest pain, Denies chest pain at rest, Denies chest pain with activity, Denies dyspnea and Denies dyspnea on exertion <Chanelle Fajardo PA-C - Last Filed: 05/07/24 11:34> Respiratory: Respiratory: Reports as per HPI, Denies cough, Denies dyspnea and Denies dyspnea on exertion <Chanelle Fajardo PA-C - Last Filed: 05/07/24 11:34> Gastrointestinal: Gastrointestinal: Reports as per HPI, Denies abdominal pain, Denies nausea and Denies vomiting <Chanelle Fajardo PA-C - Last Filed: 05/07/24 11:34> Musculoskeletal: Musculoskeletal: Denies numbness <Chanelle Fajardo PA-C - Last Filed: 05/07/24 11:34> Integumentary/Breasts: Skin/Breast: Reports as per HPI, Denies erythema and Denies wounds <Chanelle Fajardo PA-C Last Filed: 05/07/24 11:34> Neurologic: Reports Normal hearing present, Denies dizziness, Denies numbness, Denies Sensory deficit (Neuro) and Denies weakness <Chanelle Fajardo PA-C Last Filed: 05/07/24 11:34> Psychiatric: Psychiatric: Reports no additional psychiatric complaints < Chanelle Fajardo PA-C Last Filed: 05/07/24 11:34> Endocrine: Endocrine: Reports no additional endocrine complaints <Chanelle Fajardo PA-C Last Filed: 05/07/24 11:34> [facility] Past Medical History Medical History: Medical History CKD (chronic kidney disease) New onset of congestive heart failure Diverticulitis Dementia Hoffman esophagus Malignant neoplasm of prostate Cirrhosis of liver <Chanelle Fajardo PA-C Last Filed: 05/07/24 11:34> Family History Family History: Family History Father CAD (coronary artery disease) <Chanelle Fajardo PA-C Last Filed: 05/07/24 11:34> Surgical History Surgical History: Surgical History H/O radical prostatectomy <Chanelle Fajardo PA-C Last Filed: 05/07/24 11:34> Social History Social History: Social History Housing: Assisted Living Facility Alcohol intake: former Patient Tobacco Use Status: Never used Tobacco Smoked in Last 30 Days: No Use of substances other than those prescribed or required for medical reasons: No Advance Directives: Yes Advance Directives on File: Yes Advance Directives Date on File: 12/22/21 Nutrition Risks: On aspiration precautions service: Yes Current occupational status: retired <Chanelle Fajardo PA-C Last Filed: 05/07/24 11:34> Meds Allergies/Adverse reactions: Allergies Allergy/AdvReac Type Severity Reaction Status Date / Time lisinopril [LISINOPRIL] Allergy Mild UNKNOWN Verified 05/06/24 14:25 baclofen [BACLOFEN] Allergy Unknown UNKNOWN Verified 06/17/23 14:06 shellfish derived Allergy Unknown UNKNOWN Verified 06/17/23 14:06 [SHELLFISH DERIVED] <Chanelle Fajardo PA-C - Last Filed: 05/07/24 11:34> Active Medications: Current Medications Acetaminophen (Acetaminophen 325 Mg Tablet) 650 mg PO Q6H PRN PRN Reason: Pain, Mild (Pain Scale 1-3), fever or headache Allopurinol (Allopurinol 100 Mg Tablet) 50 mg PO DAILY [facility] Aspirin (Aspirin 81 Mg Tab.Chew) 81 mg PO DAILY [facility] Last Admin: 05/07/24 09:03 Dose: Not Given Atorvastatin Calcium (Atorvastatin Calcium 40 Mg Tablet) 40 mg PO BEDTIME [facility] Last Admin: 05/06/24 21:07 Dose: Not Given Calcium Carbonate (Calcium Carbonate 750 Mg Tab.Chew) 750 mg PO Q4H PRN PRN Reason: Heartburn Heparin Sodium (Porcine) (Heparin Sodium,Porcine 5,000 Unit/Ml Vial) 5,000 unit SUBCUT Q12H [facility] Last Admin: 05/07/24 06:38 Dose: 5,000 unit Loratadine (Loratadine 10 Mg Tablet) 10 mg PO BEDTIME [facility] Magnesium Hydroxide (Milk Of Magnesia 30 Ml Oral.Susp) 30 ml PO DAILY PRN PRN Reason: Constipation Melatonin (Melatonin 3 Mg Tablet) 6 mg PO BEDTIME PRN PRN Reason: Insomnia Mirtazapine (Mirtazapine 30 Mg Tablet) 30 mg PO DAILY [facility] Multivitamins/Vitamin C (Multivitamin Tablet) 1 tab PO DAILY [facility] Omeprazole (Omeprazole 20 Mg Capsule.Dr) 20 mg PO BID [facility] Ondansetron HCl (Ondansetron Hcl 4 Mg/2 Ml Vial) 4 mg IVPUSH Q8H PRN PRN Reason: Nausea and Vomiting Thiamine HCl (Thiamine Hcl 100 Mg Tablet) 100 mg PO DAILY [facility] Vitamin D (Cholecalciferol (Vitamin D3) 25 Mcg Tablet) 50 mcg PO DAILY [facility] <Chanelle Fajardo PA-C - Last Filed: 05/07/24 11:34> Home medications: Home Medications ?Medication ?Instructions ?Recorded ?Confirmed ?Last Taken ?Type allopurinol 100 mg tablet 50 mg PO DAILY 12/18/21 05/06/24 12/16/21 History aspirin 81 mg chewable tablet 81 mg PO DAILY 12/18/21 05/06/24 12/17/21 History cholecalciferol (vitamin D3) 50 50 mcg PO DAILY 12/18/21 05/06/24 12/17/21 History mcg (2,000 unit) tablet loratadine 10 mg tablet 10 mg PO BEDTIME 12/18/21 05/06/24 12/17/21 History pantoprazole 40 mg tablet,delayed 40 mg PO BID 06/17/23 05/06/24 Unknown History release mirtazapine 30 mg tablet 30 mg PO DAILY 03/02/24 05/06/24 Unknown History multivitamin 1 tab PO DAILY 05/06/24 05/06/24 Unknown History nystatin 100,000 unit/gram topical 1 appl topical BID PRN groin rash 05/06/24 05/06/24 Unknown History powder thiamine HCl (vitamin B1) 100 mg 100 mg PO DAILY 05/06/24 05/06/24 Unknown History tablet <Chanelle Fajardo PA-C - Last Filed: 05/07/24 11:34> Physical Exam 2 Vital Signs: Vital Signs: Last Vital Signs Temp 98.7 F 05/07/24 07:11 Pulse 60 05/07/24 11:10 Resp 18 05/07/24 11:10 BP 158/83 H 05/07/24 11:10 Pulse Ox 96 05/07/24 11:10 O2 Del Method Room Air 05/07/24 11:10 BMI result Body Mass Index 25.0 <Chanelle Fajardo PA-C - Last Filed: 05/07/24 11:34> Const: General: comfortable and no acute distress <THOM Lindsey Last Filed: 05/07/24 11:34> Orientation/consciousness: patient oriented x3 <THOM Lindsey Last Filed: 05/07/24 11:34> HEENT: Ears: hearing grossly normal bilaterally <THOM Lindsey Last Filed: 05/07/24 11:34> Resp: Effort & Inspection: normal respiratory effort and able to speak in complete sentences <Chanelle BoyceTHOM vanegas - Last Filed: 05/07/24 11:34> Auscultation: clear to auscultation bilaterally <Chanelle BoyceTHOM vanegas - Last Filed: 05/07/24 11:34> Cardio: Rate: regular rate <Chanelle FajardoTHOM - Last Filed: 05/07/24 11:34> Rhythm: regular rhythm <Chanelle BoyceTHOM vanegas - Last Filed: 05/07/24 11:34> Heart sounds: S1 normal heart sound present and S2 normal heart sound present <Chanelle BoyceKASSANDRA vanegasKimmy - Last Filed: 05/07/24 11:34> Bruits: no abdominal aortic bruits, no carotid bruits, no femoral bruits and no renal bruits <Chanelle BoyceKASSANDRA vanegasKimmy - Last Filed: 05/07/24 11:34> GI: Palpation (GI): No Abdominal aortic bruit present <Chanelle Lake KASSANDRA FajardoKimmy - Last Filed: 05/07/24 11:34> Neuro: Other: Cranial nerves intact. Patient has equal dispatcher service strength as well as equal smile. <Chanelle Lake THOM Fajardo - Last Filed: 05/07/24 11:34> General: patient oriented x3 <Chanelle Lake THOM Fajardo - Last Filed: 05/07/24 11:34> Cranial nerves: Yes CN's II-XII intact bilaterally and Yes Normal hearing present <Chanelle Lake THOM Fajardo - Last Filed: 05/07/24 11:34> Sensory Exam: No Sensory deficit (Neuro) <Chanelle BoyceTHOM vanegas - Last Filed: 05/07/24 11:34> Results Labs Result diagrams: 05/07/24 05:29 05/07/24 05:29 <Chanelle Lake THOM Fajardo - Last Filed: 05/07/24 11:34> Labs: Abnormal lab results 05/06/24 05/06/24 05/06/24 Range/Units 13:56 14:05 14:37 RBC (4.60-5.80) X10*6/uL Hgb 13.6 L (14.0-18.0) g/dl Hct 40.0 L (42.0-52.0) % Immature Gran % (Auto) 0.5 H (0.0-0.4) % [place] % (Auto) 11.3 H (2-11) % Abs Immat Gran (auto) (0.00-0.03) X10*3/uL Chloride (96-108) mmol/L Carbon Dioxide (22-29) mmol/L Creatinine 2.19 H (0.5-1.4) mg/dL POC Glucose 129 H (60-115) mg/dL Triglycerides 185 H (<150) mg/dL LDL Cholesterol, Calc (<100) mg/dL HDL Cholesterol 27 L (>40) mg/dL 05/07/24 Range/Units 05:29 RBC 4.58 L (4.60-5.80) X10*6/uL Hgb 12.7 L (14.0-18.0) g/dl Hct 37.9 L (42.0-52.0) % Immature Gran % (Auto) 0.7 H (0.0-0.4) % [place] % (Auto) (2-11) % Abs Immat Gran (auto) 0.04 H (0.00-0.03) X10*3/uL Chloride 111 H (96-108) mmol/L Carbon Dioxide 20 L (22-29) mmol/L Creatinine 1.93 H (0.5-1.4) mg/dL POC Glucose (60-115) mg/dL Triglycerides (<150) mg/dL LDL Cholesterol, Calc 103 H (<100) mg/dL HDL Cholesterol 25 L (>40) mg/dL Short CBC 05/06/24 05/07/24 Range/Units 14:05 05:29 WBC 6.1 6.0 (4.8-10.8) X10*3/uL Hgb 13.6 L 12.7 L (14.0-18.0) g/dl Hct 40.0 L 37.9 L (42.0-52.0) % Plt Count 183 165 (160-400) X10*3/uL BMP 05/06/24 05/07/24 14:37 05:29 Sodium 140 141 Potassium 4.6 4.3 Chloride 108 111 H Carbon Dioxide 24 20 L BUN 15 14 Creatinine 2.19 H 1.93 H Calcium 9.0 8.8 All other labs normal. <Chanelle Fajardo PA-C - Last Filed: 05/07/24 11:34> Assessment and Plan (1) Carotid stenosis, right: Status: Acute <Chanelle Fajardo PA-C - Last Filed: 05/07/24 11:34> Clifford was brought by ambulance [facility] with concerns of a possible stroke/TIA. He was found on the side of his bed with right-sided weakness and speech changes. There was a gap in time from last known well time. He states he feels fine this morning and does not remember sliding out of bed or having any weakness/speech changes. He has no complaints this morning. Neuro exam is negative. We discussed the finding of the right internal carotid artery stenosis, 90%. There is a 50% stenosis of the proximal ICA as well. He was having a NILESH done upon exam this morning. At this point, there is no acute surgical intervention. We suggest continuing him on Aspirin and Atorvastatin. We will be following him outpatient, with further evaluation and treatment. Thank you for the consult. If there are any questions or concerns, please do not hesitate to reach out to us. <Chanelle Fajardo PA-C - Last Filed: 05/07/24 11:34> Procedures Date of Service Date of Service: 05/07/24 <Chanelle Fajardo PA-C - Last Filed: 05/07/24 11:34> 05/07/24 <Sergio De Leon MD - Last Filed: 05/07/24 12:35>
--- NOTE | 2024-05-07 11:43 | P.CNNE_ITS ---
History of Present Illness Data of Consult Service Date: 05/07/24 Primary Care Provider: Charlie Good MD [facility] Reason for consult: Stroke 78 years old man resident of a local intermediate came to hospital with new onset of confusion and right-sided weakness. In emergency room he was not noted to have significant weakness and was not considered a candidate for acute treatment. Is workup was reported not revealing any acute abnormality. He said that he was doing something at looking for something in a drawer that he could not fine. He remembered the right coming to hospital. Review of Systems 2 Review of Systems: No recent cold or flu-like illness PMFSH Past Medical History Medical History CKD (chronic kidney disease) New onset of congestive heart failure Diverticulitis Dementia Hoffman esophagus Malignant neoplasm of prostate Cirrhosis of liver Family History Family History Father CAD (coronary artery disease) Surgical History Surgical History H/O radical prostatectomy Social History Social History Housing: Assisted Living Facility Alcohol intake: former Patient Tobacco Use Status: Never used Tobacco Smoked in Last 30 Days: No Use of substances other than those prescribed or required for medical reasons: No Advance Directives: Yes Advance Directives on File: Yes Advance Directives Date on File: 12/22/21 Nutrition Risks: On aspiration precautions service: Yes Current occupational status: retired Meds Allergies Allergy/AdvReac Type Severity Reaction Status Date / Time lisinopril [LISINOPRIL] Allergy Mild UNKNOWN Verified 05/06/24 14:25 baclofen [BACLOFEN] Allergy Unknown UNKNOWN Verified 06/17/23 14:06 shellfish derived Allergy Unknown UNKNOWN Verified 06/17/23 14:06 [SHELLFISH DERIVED] Active Medications: Current Medications Acetaminophen (Acetaminophen 325 Mg Tablet) 650 mg PO Q6H PRN PRN Reason: Pain, Mild (Pain Scale 1-3), fever or headache Allopurinol (Allopurinol 100 Mg Tablet) 50 mg PO DAILY [facility] Aspirin (Aspirin 81 Mg Tab.Chew) 81 mg PO DAILY [facility] Last Admin: 05/07/24 09:03 Dose: Not Given Atorvastatin Calcium (Atorvastatin Calcium 40 Mg Tablet) 40 mg PO BEDTIME [facility] Last Admin: 05/06/24 21:07 Dose: Not Given Calcium Carbonate (Calcium Carbonate 750 Mg Tab.Chew) 750 mg PO Q4H PRN PRN Reason: Heartburn Heparin Sodium (Porcine) (Heparin Sodium,Porcine 5,000 Unit/Ml Vial) 5,000 unit SUBCUT Q12H [facility] Last Admin: 05/07/24 06:38 Dose: 5,000 unit Loratadine (Loratadine 10 Mg Tablet) 10 mg PO BEDTIME [facility] Magnesium Hydroxide (Milk Of Magnesia 30 Ml Oral.Susp) 30 ml PO DAILY PRN PRN Reason: Constipation Melatonin (Melatonin 3 Mg Tablet) 6 mg PO BEDTIME PRN PRN Reason: Insomnia Mirtazapine (Mirtazapine 30 Mg Tablet) 30 mg PO DAILY [facility] Multivitamins/Vitamin C (Multivitamin Tablet) 1 tab PO DAILY [facility] Omeprazole (Omeprazole 20 Mg Capsule.Dr) 20 mg PO BID [facility] Ondansetron HCl (Ondansetron Hcl 4 Mg/2 Ml Vial) 4 mg IVPUSH Q8H PRN PRN Reason: Nausea and Vomiting Thiamine HCl (Thiamine Hcl 100 Mg Tablet) 100 mg PO DAILY [facility] Vitamin D (Cholecalciferol (Vitamin D3) 25 Mcg Tablet) 50 mcg PO DAILY [facility] Home Medications ?Medication ?Instructions ?Recorded ?Confirmed ?Last Taken ?Type allopurinol 100 mg tablet 50 mg PO DAILY 12/18/21 05/06/24 12/16/21 History aspirin 81 mg chewable tablet 81 mg PO DAILY 12/18/21 05/06/24 12/17/21 History cholecalciferol (vitamin D3) 50 50 mcg PO DAILY 12/18/21 05/06/24 12/17/21 History mcg (2,000 unit) tablet loratadine 10 mg tablet 10 mg PO BEDTIME 12/18/21 05/06/24 12/17/21 History pantoprazole 40 mg tablet,delayed 40 mg PO BID 06/17/23 05/06/24 Unknown History release mirtazapine 30 mg tablet 30 mg PO DAILY 03/02/24 05/06/24 Unknown History multivitamin 1 tab PO DAILY 05/06/24 05/06/24 Unknown History nystatin 100,000 unit/gram topical 1 appl topical BID PRN groin rash 05/06/24 05/06/24 Unknown History powder thiamine HCl (vitamin B1) 100 mg 100 mg PO DAILY 05/06/24 05/06/24 Unknown History tablet Physical Exam 2 Vital Signs: Vital Signs: Last Vital Signs Temp 98.7 F 05/07/24 07:11 Pulse 60 05/07/24 11:10 Resp 18 05/07/24 11:10 BP 158/83 H 05/07/24 11:10 Pulse Ox 96 05/07/24 11:10 O2 Del Method Room Air 05/07/24 11:10 BMI result Body Mass Index 25.0 Neuro: Other: He is alert and awake with slightly decreased spontaneity and fluency of speech. There is mild left-sided facial flatness. No obvious focal arm or leg weakness. Plantars are flexors. Extraocular muscles are intact. Visual bearden are full. Results Labs 05/07/24 05:29 05/07/24 05:29 Labs: Short CBC 05/06/24 05/07/24 Range/Units 14:05 05:29 WBC 6.1 6.0 (4.8-10.8) X10*3/uL Hgb 13.6 L 12.7 L (14.0-18.0) g/dl Hct 40.0 L 37.9 L (42.0-52.0) % Plt Count 183 165 (160-400) X10*3/uL BMP 05/06/24 05/07/24 14:37 05:29 Sodium 140 141 Potassium 4.6 4.3 Chloride 108 111 H Carbon Dioxide 24 20 L BUN 15 14 Creatinine 2.19 H 1.93 H Calcium 9.0 8.8 MRI of brain revealed a faint left posterior limb of internal capsule/thalamic hyperintense signal on DWI. There was moderate diffuse cerebral atrophy. Cerebral vasculature was diffusely affected by atherosclerotic disease both intracranially and extracranial. 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 Though he fell better in emergency room, his imaging reveals a faint left internal capsule/thalamic lesion that could explain his symptoms. His blood pressure was not control putting him at risk for this kind of strokes. He is not a candidate for any surgical intervention and medical management is recommended. I would recommend clopidogrel 75 mg +baby aspirin daily with statin and blood pressure control. Procedures Date of Service Date of Service: 05/07/24
[2024-05-07] MEDS: amLODIPine Besylate 2.5 MG TABLET PO (12:25)
--- NOTE | 2024-05-07 13:30 | HO.PM.IMPN ---
Subjective Subjective Date of Service: 05/07/24 Interval History: seen and examined this morning Physical Exam Vital Signs: Vital Signs: Last Vital Signs Temp 98.7 F 05/07/24 07:11 Pulse 47 L 05/07/24 12:30 Resp 18 05/07/24 11:10 BP 158/83 H 05/07/24 12:25 Pulse Ox 97 05/07/24 12:30 O2 Del Method Room Air 05/07/24 12:30 BMI result Body Mass Index 25.0 Objective Data Active Medications Acetaminophen (Acetaminophen 325 Mg Tablet) 650 mg PO Q6H PRN PRN Reason: Pain, Mild (Pain Scale 1-3), fever or headache Allopurinol (Allopurinol 100 Mg Tablet) 50 mg PO DAILY [facility] Amlodipine Besylate (Amlodipine Besylate 2.5 Mg Tablet) 2.5 mg PO DAILY [facility]; Protocol Last Admin: 05/07/24 12:25 Dose: 2.5 mg Documented By: AB Aspirin (Aspirin 81 Mg Tab.Chew) 81 mg PO DAILY [facility] Last Admin: 05/07/24 09:03 Dose: Not Given Documented By: AB Non-Admin Reason: See Note Comments: Pt strict NPO until swallow eval Atorvastatin Calcium (Atorvastatin Calcium 40 Mg Tablet) 40 mg PO BEDTIME [facility] Last Admin: 05/06/24 21:07 Dose: Not Given Documented By: CHARLOTTE Non-Admin Reason: NPO Calcium Carbonate (Calcium Carbonate 750 Mg Tab.Chew) 750 mg PO Q4H PRN PRN Reason: Heartburn Heparin Sodium (Porcine) (Heparin Sodium,Porcine 5,000 Unit/Ml Vial) 5,000 unit SUBCUT Q12H [facility] Last Admin: 05/07/24 06:38 Dose: 5,000 unit Documented By: CHARLOTTE Loratadine (Loratadine 10 Mg Tablet) 10 mg PO BEDTIME [facility] Magnesium Hydroxide (Milk Of Magnesia 30 Ml Oral.Susp) 30 ml PO DAILY PRN PRN Reason: Constipation Melatonin (Melatonin 3 Mg Tablet) 6 mg PO BEDTIME PRN PRN Reason: Insomnia Mirtazapine (Mirtazapine 30 Mg Tablet) 30 mg PO DAILY [facility] Multivitamins/Vitamin C (Multivitamin Tablet) 1 tab PO DAILY [facility] Omeprazole (Omeprazole 20 Mg Capsule.Dr) 20 mg PO BID [facility] Ondansetron HCl (Ondansetron Hcl 4 Mg/2 Ml Vial) 4 mg IVPUSH Q8H PRN PRN Reason: Nausea and Vomiting Thiamine HCl (Thiamine Hcl 100 Mg Tablet) 100 mg PO DAILY [facility] Vitamin D (Cholecalciferol (Vitamin D3) 25 Mcg Tablet) 50 mcg PO DAILY [facility] Labs 05/07/24 05:29 05/07/24 05:29 Labs: Laboratory Results - last 24 hr 05/06/24 05/06/24 05/06/24 13:56 14:05 14:37 MCV 82.5 MCH 28.0 MCHC 34.0 RDW 14.7 Plt Count 183 MPV 10.0 Immature Gran % (Auto) 0.5 H Neut % (Auto) 52.7 Lymph % (Auto) 31.8 [place] % (Auto) 11.3 H Eos % (Auto) 2.9 Baso % (Auto) 0.8 Lymph # (Auto) 2.0 [place] # (Auto) 0.7 Eos # (Auto) 0.2 Baso # (Auto) 0.1 Abs Immat Gran (auto) 0.03 Absolute Neuts (auto) 3.2 Absolute Nucleated RBC 0.000 Nucleated RBC % (auto) 0.0 Hold Purple Top SEE NOTE PT 12.1 Whole Blood PT 13.0 INR 1.0 Whole Blood INR 1.1 APTT 29.2 Anion Gap 13 Estim Creat Clear Calc 27.7 Estimated GFR 29 POC Glucose 129 H Random Glucose 100 Calcium 9.0 Troponin I High Sens 13.8 Triglycerides 185 H Cholesterol 157 LDL Cholesterol, Calc 93 HDL Cholesterol 27 L 05/07/24 05:29 MCV 82.8 MCH 27.7 MCHC 33.5 RDW 14.7 Plt Count 165 MPV 9.4 Immature Gran % (Auto) 0.7 H Neut % (Auto) 50.4 Lymph % (Auto) 34.8 [place] % (Auto) 10.8 Eos % (Auto) 2.8 Baso % (Auto) 0.5 Lymph # (Auto) 2.1 [place] # (Auto) 0.7 Eos # (Auto) 0.2 Baso # (Auto) 0.0 Abs Immat Gran (auto) 0.04 H Absolute Neuts (auto) 3.0 Absolute Nucleated RBC 0.000 Nucleated RBC % (auto) 0.0 Hold Purple Top PT Whole Blood PT INR Whole Blood INR APTT Anion Gap 14 Estim Creat Clear Calc 31.5 Estimated GFR 34 POC Glucose Random Glucose 90 Calcium 8.8 Troponin I High Sens Triglycerides 139 Cholesterol 155 LDL Cholesterol, Calc 103 H HDL Cholesterol 25 L Quality Stroke Does the patient have a stroke diagnosis?: No VTE Prior VTE?: No VTE Risk Level:: Medical - moderate - high VTE Device Contraindication: Treatment Not Indicated VTE Drug Contraindication: N/A - Med Ordered
--- NOTE | 2024-05-07 13:33 | P.DS_ITS ---
DS: Providers Provider Date of Service: 05/08/24 Date of admission: 05/06/24 16:22 Date of discharge: 05/08/24 Primary care physician: Charlie Good MD Consults: 05/06/24 15:29 Consult to Vascular Surgery Routine Consulting Provider: [facility] [place] V[facility] Services Reason for consultation: stroke, multiple areas of stenosis 05/07/24 08:24 Consult to Neurology Routine Consulting Provider: [facility] Reason for consultation: right side weakness, slurred speech Has provider been notified: No Attending physician on discharge: Petey Pyle Discharging clinician: Preeti Joshi DS: Diagnosis Discharge Diagnosis (1) Carotid stenosis, right: Status: Acute DS: Summary Hospital Course Hospital Course: acute stoke symptoms resolved. MRI official read negative for stroke but seen by neurology and there is faint left internal capsule/thalamic lesion that could explain his symptoms - recommend to add Plavix to baseline aspirin as well as statin and blood pressure control CTA head/neck showing Multifocal high-grade atherosclerotic stenoses of the anterior and posterior circulation - seen by vascular surgery -no acute surgical intervention required, can follow up as an outpatient for carotid stenosis started on low dose norvasc - follow bp closely, will likely need further titrate for adequate blood pressure control Echocardiogram obtained, no change from previous PT/OT - no indication for services. can continue outpatient physical therpy Failed bedside swallow on admission, but passed on re-evaluation without issue and has been tolerating regular diet intermittent bradycardia Noted to have intermittent bradycardia. EKG with Wenckebach with accelerated junctional beats. Patient has been asymptomatic, not on any rate lowering medication. Blood pressure stable. Seen by Cardiology, no further intervention required mild CLARK on CKD3 Received 1 L of IV fluid in the ER. appears close to baseline. can follow as outpatient Time Attestation Discharge Coordination Time (in mins): 40 Quality: Safe Use of Opioids Does Pt have an Active Cancer Diagnosis on the Problem List?: No Quality: Stroke Does the patient have a stroke diagnosis?: No Physical Exam Vital Signs: Vital Signs: Last Vital Signs Temp 98.7 F 05/07/24 07:11 Pulse 47 L 05/07/24 12:30 Resp 18 05/07/24 11:10 BP 158/83 H 05/07/24 12:25 Pulse Ox 97 05/07/24 12:30 O2 Del Method Room Air 05/07/24 12:30 BMI result Body Mass Index 25.0 Const: General: cooperative, comfortable, no acute distress, alert and awake Nutritional Appearance: average body habitus Orientation/consciousness: oriented to person Resp: Effort & Inspection: normal respiratory effort, able to speak in complete sentences, no respiratory distress and no use of accessory muscles Auscultation: clear to auscultation bilaterally Cardio: Rate: regular rate GI: Inspection: No distended Palpation (GI): Soft to palpation and nontender Neuro: Other: no focal neurological deficits appreciated General: oriented to person, moves all extremities and CN's II-XI intact bilaterally Extrem: General: Yes no pedal edema DS: Data Data Completed and Pending Labs on day of discharge: Laboratory Results - last 24 hr 05/06/24 05/06/24 05/06/24 13:56 14:05 14:37 WBC 6.1 RBC 4.85 Hgb 13.6 L Hct 40.0 L MCV 82.5 MCH 28.0 MCHC 34.0 RDW 14.7 Plt Count 183 MPV 10.0 Immature Gran % (Auto) 0.5 H Neut % (Auto) 52.7 Lymph % (Auto) 31.8 [place] % (Auto) 11.3 H Eos % (Auto) 2.9 Baso % (Auto) 0.8 Lymph # (Auto) 2.0 [place] # (Auto) 0.7 Eos # (Auto) 0.2 Baso # (Auto) 0.1 Abs Immat Gran (auto) 0.03 Absolute Neuts (auto) 3.2 Absolute Nucleated RBC 0.000 Nucleated RBC % (auto) 0.0 Hold Purple Top SEE NOTE PT 12.1 Whole Blood PT 13.0 INR 1.0 Whole Blood INR 1.1 APTT 29.2 Sodium 140 Potassium 4.6 Chloride 108 Carbon Dioxide 24 Anion Gap 13 BUN 15 Creatinine 2.19 H Estim Creat Clear Calc 27.7 Estimated GFR 29 POC Glucose 129 H Random Glucose 100 Calcium 9.0 Troponin I High Sens 13.8 Triglycerides 185 H Cholesterol 157 LDL Cholesterol, Calc 93 HDL Cholesterol 27 L 05/07/24 05:29 WBC 6.0 RBC 4.58 L Hgb 12.7 L Hct 37.9 L MCV 82.8 MCH 27.7 MCHC 33.5 RDW 14.7 Plt Count 165 MPV 9.4 Immature Gran % (Auto) 0.7 H Neut % (Auto) 50.4 Lymph % (Auto) 34.8 [place] % (Auto) 10.8 Eos % (Auto) 2.8 Baso % (Auto) 0.5 Lymph # (Auto) 2.1 [place] # (Auto) 0.7 Eos # (Auto) 0.2 Baso # (Auto) 0.0 Abs Immat Gran (auto) 0.04 H Absolute Neuts (auto) 3.0 Absolute Nucleated RBC 0.000 Nucleated RBC % (auto) 0.0 Hold Purple Top PT Whole Blood PT INR Whole Blood INR APTT Sodium 141 Potassium 4.3 Chloride 111 H Carbon Dioxide 20 L Anion Gap 14 BUN 14 Creatinine 1.93 H Estim Creat Clear Calc 31.5 Estimated GFR 34 POC Glucose Random Glucose 90 Calcium 8.8 Troponin I High Sens Triglycerides 139 Cholesterol 155 LDL Cholesterol, Calc 103 H HDL Cholesterol 25 L Discharge Plan Discharge Patient Disposition: Xfer LTC Discharge Diagnosis: acute stroke carotid stenosis Referrals: [facility] [Other] - 1 Day (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) Sergio De Leon MD [Physician] - 2 Weeks Charlie Good MD [Primary Care Provider] - 1 Week Discharge Medications: New clopidogrel 75 mg Tablet 75 mg PO DAILY 90 Days Qty: 90 0RF amlodipine 2.5 mg Tablet 2.5 mg PO DAILY 90 Days Qty: 90 0RF Protocol: Hold for SBP< HOLD for SBP < : 90 atorvastatin 40 mg Tablet 40 mg PO BEDTIME 90 Days Qty: 90 0RF Continued allopurinol 100 mg Tablet 50 mg PO DAILY aspirin 81 mg Tablet,Chewable 81 mg PO DAILY loratadine 10 mg Tablet 10 mg PO BEDTIME cholecalciferol (vitamin D3) 50 mcg (2,000 unit) Tablet 50 mcg PO DAILY multivitamin Tablet 1 tab PO DAILY thiamine HCl (vitamin B1) 100 mg Tablet 100 mg PO DAILY nystatin 100,000 unit/gram Powder 1 appl TOPICAL BID PRN (Reason: groin rash) pantoprazole 40 mg tablet,delayed release (DR/EC) 40 mg PO BID mirtazapine 30 mg tablet 30 mg PO DAILY Discharge Orders: Discharge Order (Routine); Ordered 05/08/24 Ordered By: Preeti Joshi Activity on Discharge: As tolerated Stand Alone Forms: Patient Portal Discharge page Print Language: Cypriot Care Plan Goals: see below Health Concerns: acute stroke carotid stenosis Wenckebach Plan of Treatment: imaging reveals a faint left internal capsule/thalamic lesion that could explain his symptoms Likely not a candidate for any surgical intervention and medical management is recommended. was seen by vascular surgery - can follow up as an outpatient. recommend clopidogrel 75 mg +baby aspirin daily with statin and blood pressure control - continued on baseline asa and started on plavix. started on lipitor For blood pressure control started on low-dose Norvasc, can be up titrated as needed Intermittent bradycardia. asymptomatic. EKG showing Wenckebach-no intervention required Assessment: see discharge summary
--- NOTE | 2024-05-07 14:13 | HO.PM.IMPN ---
Subjective Subjective Date of Service: 05/07/24 Interval History: seen and examined this morning follow up for stroke symptoms have resolved, pt doesn't remember having symptoms Review of Systems Review of Systems: Yes all other systems are reviewed and are negative Constitutional Constitutional: Denies chills and Denies fever(s) Cardiovascular Cardiovascular: Denies chest pain Gastrointestinal Gastrointestinal: Denies abdominal pain Physical Exam Vital Signs: Vital Signs: Last Vital Signs Temp 98.7 F 05/07/24 07:11 Pulse 47 L 05/07/24 12:30 Resp 18 05/07/24 11:10 BP 158/83 H 05/07/24 12:25 Pulse Ox 97 05/07/24 12:30 O2 Del Method Room Air 05/07/24 12:30 BMI result Body Mass Index 25.0 Const: General: cooperative, comfortable, no acute distress, alert and awake Nutritional Appearance: average body habitus Orientation/consciousness: oriented to person Resp: Effort & Inspection: normal respiratory effort, able to speak in complete sentences, no respiratory distress and no use of accessory muscles Auscultation: clear to auscultation bilaterally Cardio: Rate: regular rate GI: Inspection: No distended Palpation (GI): Soft to palpation and nontender Neuro: Other: no focal neurological deficits appreciated General: oriented to person, moves all extremities and CN's II-XI intact bilaterally Extrem: General: Yes no pedal edema Objective Data Active Medications Acetaminophen (Acetaminophen 325 Mg Tablet) 650 mg PO Q6H PRN PRN Reason: Pain, Mild (Pain Scale 1-3), fever or headache Allopurinol (Allopurinol 100 Mg Tablet) 50 mg PO DAILY [facility] Amlodipine Besylate (Amlodipine Besylate 2.5 Mg Tablet) 2.5 mg PO DAILY [facility]; Protocol Last Admin: 05/07/24 12:25 Dose: 2.5 mg Documented By: AB Aspirin (Aspirin 81 Mg Tab.Chew) 81 mg PO DAILY [facility] Last Admin: 05/07/24 09:03 Dose: Not Given Documented By: AB Non-Admin Reason: See Note Comments: Pt strict NPO until swallow eval Atorvastatin Calcium (Atorvastatin Calcium 40 Mg Tablet) 40 mg PO BEDTIME [facility] Last Admin: 05/06/24 21:07 Dose: Not Given Documented By: CHARLOTTE Non-Admin Reason: NPO Calcium Carbonate (Calcium Carbonate 750 Mg Tab.Chew) 750 mg PO Q4H PRN PRN Reason: Heartburn Heparin Sodium (Porcine) (Heparin Sodium,Porcine 5,000 Unit/Ml Vial) 5,000 unit SUBCUT Q12H [facility] Last Admin: 05/07/24 06:38 Dose: 5,000 unit Documented By: CHARLOTTE Loratadine (Loratadine 10 Mg Tablet) 10 mg PO BEDTIME [facility] Magnesium Hydroxide (Milk Of Magnesia 30 Ml Oral.Susp) 30 ml PO DAILY PRN PRN Reason: Constipation Melatonin (Melatonin 3 Mg Tablet) 6 mg PO BEDTIME PRN PRN Reason: Insomnia Mirtazapine (Mirtazapine 30 Mg Tablet) 30 mg PO DAILY [facility] Multivitamins/Vitamin C (Multivitamin Tablet) 1 tab PO DAILY [facility] Omeprazole (Omeprazole 20 Mg Capsule.Dr) 20 mg PO BID [facility] Ondansetron HCl (Ondansetron Hcl 4 Mg/2 Ml Vial) 4 mg IVPUSH Q8H PRN PRN Reason: Nausea and Vomiting Thiamine HCl (Thiamine Hcl 100 Mg Tablet) 100 mg PO DAILY [facility] Vitamin D (Cholecalciferol (Vitamin D3) 25 Mcg Tablet) 50 mcg PO DAILY [facility] Labs 05/07/24 05:29 05/07/24 05:29 Labs: Laboratory Results - last 24 hr 05/06/24 05/06/24 05/06/24 13:56 14:05 14:37 MCV 82.5 MCH 28.0 MCHC 34.0 RDW 14.7 Plt Count 183 MPV 10.0 Immature Gran % (Auto) 0.5 H Neut % (Auto) 52.7 Lymph % (Auto) 31.8 [place] % (Auto) 11.3 H Eos % (Auto) 2.9 Baso % (Auto) 0.8 Lymph # (Auto) 2.0 [place] # (Auto) 0.7 Eos # (Auto) 0.2 Baso # (Auto) 0.1 Abs Immat Gran (auto) 0.03 Absolute Neuts (auto) 3.2 Absolute Nucleated RBC 0.000 Nucleated RBC % (auto) 0.0 Hold Purple Top SEE NOTE PT 12.1 INR 1.0 APTT 29.2 Anion Gap 13 Estim Creat Clear Calc 27.7 Estimated GFR 29 POC Glucose 129 H Random Glucose 100 Calcium 9.0 Troponin I High Sens 13.8 Triglycerides 185 H Cholesterol 157 LDL Cholesterol, Calc 93 HDL Cholesterol 27 L 05/07/24 05:29 MCV 82.8 MCH 27.7 MCHC 33.5 RDW 14.7 Plt Count 165 MPV 9.4 Immature Gran % (Auto) 0.7 H Neut % (Auto) 50.4 Lymph % (Auto) 34.8 [place] % (Auto) 10.8 Eos % (Auto) 2.8 Baso % (Auto) 0.5 Lymph # (Auto) 2.1 [place] # (Auto) 0.7 Eos # (Auto) 0.2 Baso # (Auto) 0.0 Abs Immat Gran (auto) 0.04 H Absolute Neuts (auto) 3.0 Absolute Nucleated RBC 0.000 Nucleated RBC % (auto) 0.0 Hold Purple Top PT INR APTT Anion Gap 14 Estim Creat Clear Calc 31.5 Estimated GFR 34 POC Glucose Random Glucose 90 Calcium 8.8 Troponin I High Sens Triglycerides 139 Cholesterol 155 LDL Cholesterol, Calc 103 H HDL Cholesterol 25 L Assessment and Plan (1) Carotid stenosis, right: Status: Acute (2) Stroke: Status: Acute Plan 78-year-old man admitted with TIA versus stroke with right-sided weakness and slurred speech acute stoke symptoms resolved. MRI official read negative for stroke seen by neurology - faint left internal capsule/thalamic lesion that could explain his symptoms - rec ASA/Plavix and statin and blood pressure control Vascular surgery for Multifocal high-grade atherosclerotic stenoses of the anterior and posterior circulation - outpatient follow up for carotid stenosis; no acute surgical intervention outpatient follow up for carotid stenosis; no acute surgical intervention will start low dose norvasc - follow bp closely Echocardiogram stable PT/OT - no indication for outpatient services Failed bedside swallow on admission, seen by speech passed eval -resume regular diet intermittent bradycardia EKG with av dissociation - not complete heart block asymptomatic not on rate lowering meds cardiology consult mild CLARK on CKD3 Received 1 L of IV fluid in the ER seems close to baseline History of coronary artery disease Aspirin and statin mood/dementia continue baseline meds - remeron DVT prophylaxis with heparin DNR Quality Stroke Does the patient have a stroke diagnosis?: No VTE Prior VTE?: No VTE Risk Level:: Medical - moderate - high VTE Device Contraindication: Treatment Not Indicated VTE Drug Contraindication: N/A - Med Ordered
--- NOTE | 2024-05-07 15:28 | MHC.SL.SWA ---
Speech Pathologist Impression: Risk of Aspiration Due to: Reduced Cognition Dysphasia Diet Status: Liquid Consistency and Strategies for Safe Swallow: Liquid Intake Recommendation: Thin Liquid Intake Strategies: Unrestricted Solid Food Consistency: Dietary Recommendations: Regular Additional Modifications to Solid Foods: Oral Medication Intake: Whole with Liquid Please contact the pharmacy regarding appropriate crushable or liquid drug formulations that are available whenever modified delivery is recommended. Compensatory Strategies and Precautions to be Taken for Safe Swallow: Sitting Upright (90 deg) Liquids from Cup Liquids from Straw Small Bites and Sips Alternate Liquids/Solids Supervision While Eating and Drinking for Safe Swallow: None Needed Foods to Avoid: Swallowing Recommended Treatments: Recommendation for Speech: NA:Typical Evaluation Comment: All aspects of swallow and oral motor function WFL. Frequency/Duration: Date Range for Service Req: Timeline to reassess: [place] Teacher Clinican/Clinical Fellow: No Supervisory Statement: I have reviewed and agree with the student/clinical fellow's documentation: N/A Speech Language Pathologist: Rachana Hinkle M.A., CCC-TAPE MAKER
[2024-05-07] MEDS: Pantoprazole Sodium 20 MG TABLET.DR 40 MG PO (18:36)
--- NOTE | 2024-05-07 20:00 | PC.NURSE ---
This repairer typewriter assumed care of this Pt at 1900. Pt A&Ox3, forgetful. Denies any pain. Pt laying in stretcher, equal, non labored respirations. Pt unsteady, one assist to bedside commode.
[2024-05-07] MEDS: Atorvastatin Calcium 40 MG TABLET PO (21:21)
[2024-05-07] MEDS: Loratadine 10 MG TABLET PO (21:21)
[2024-05-08 01:40] VITALS: BMI 23.2
[2024-05-08 04:00] VITALS: BP 134/72; PULSE 64; RESP 18; TEMP 36.3; O2SAT 98
[2024-05-08] MEDS: Pantoprazole Sodium 20 MG TABLET.DR 40 MG PO (06:06)
[2024-05-08] MEDS: Heparin Sodium,Porcine 5,000 UNIT/ML VIAL 5000 UNIT SUBCUT (06:06)
[2024-05-08 07:33] VITALS: BP 142/66; PULSE 78; RESP 20; TEMP 36.2; O2SAT 94
[2024-05-08] MEDS: Aspirin 81 MG TAB.CHEW PO (09:31)
[2024-05-08] MEDS: allopurinoL 100 MG TABLET 50 MG PO (09:31)
[2024-05-08] MEDS: Cholecalciferol (Vitamin D3) 25 MCG TABLET 50 MCG PO (09:31)
[2024-05-08] MEDS: Thiamine HCL 100 MG TABLET PO (09:31)
[2024-05-08] MEDS: amLODIPine Besylate 2.5 MG TABLET PO (09:31)
[2024-05-08] MEDS: Mirtazapine 30 MG TABLET PO (09:32)
[2024-05-08] MEDS: Multivitamin TABLET 1 TAB PO (09:32)
[2024-05-08] MEDS: Clopidogrel Bisulfate 75 MG TABLET PO (09:32)
--- NOTE | 2024-05-08 09:48 | HO.VASCPN ---
Subjective Subjective Date of Service: 05/08/24 Interval history: Basilio is doing well this morning. He continues to endorse no concerns and denies any dizziness, headaches, any neuro symptoms. He states he is eating and drinking well and has been sleeping well. Physical Exam Vital Signs: Vital Signs: Last Vital Signs Temp 97.2 F 05/08/24 07:33 Pulse 78 05/08/24 07:33 Resp 20 05/08/24 07:33 BP 142/66 H 05/08/24 07:33 Pulse Ox 94 05/08/24 07:33 O2 Del Method Room Air 05/08/24 07:33 BMI result Body Mass Index 23.2 Const: General: comfortable and no acute distress Orientation/consciousness: patient oriented x3 HEENT: Ears: hearing grossly normal bilaterally Resp: Effort & Inspection: normal respiratory effort and able to speak in complete sentences Auscultation: clear to auscultation bilaterally Cardio: Rate: regular rate Rhythm: regular rhythm Heart sounds: S1 normal heart sound present and S2 normal heart sound present Bruits: no abdominal aortic bruits, no carotid bruits, no femoral bruits and no renal bruits GI: Palpation (GI): No Abdominal aortic bruit present Neuro: General: patient oriented x3 Cranial nerves: Yes CN's II-XII intact bilaterally Progress Note: A&P Assessment and plan (1) Carotid stenosis, right: Status: Acute Assessment and Plan: Pt remains asymptomatic, his symptoms have resolved. There are no acute vascular surgical interventions at this point. We suggest continuing with his daily ASA and Atorvastatin. We will follow up with him outpatient for further evaluation and treatment. If there are any questions or concerns, please do not hesitate to reach out to us. Time Spent With Patient Time: Total time managing care of this patient today __20__ minutes. Procedures Date of Service Date of Service: 05/08/24 Quality Stroke Does the patient have a stroke diagnosis?: No VTE Prior VTE?: No VTE Risk Level:: Medical - moderate - high VTE Device Contraindication: Treatment Not Indicated VTE Drug Contraindication: N/A - Med Ordered
--- NOTE | 2024-05-08 11:09 | MHC.CM.PN ---
EMR REVIEWED, PER HOSPITALIST CARDIOLOGY CONSULT PENDING, CARDIAC MED CHANGES YESTERDAY 05/07, NO PLAN FOR DC AT THIS TIME, CM WILL CONT TO FOLLOW DC NEEDS.
--- NOTE | 2024-05-08 11:26 | ECG_ITS ---
Test Reason : Bradycardia Blood Pressure : / mmHG Vent. Rate : 054 BPM Atrial Rate : 068 BPM P-R Int : 000 ms QRS Dur : 128 ms QT Int : 482 ms P-R-T Axes : 046 039 019 degrees QTc Int : 457 ms Sinus rhythm with 2nd degree A-V block (Mobitz I) Right bundle branch block Abnormal ECG No previous ECGs available Referred By: Preeti Joshi Electronically Signed By:KO HERMOSILLO MD
[2024-05-08 11:48] VITALS: BP 150/82; PULSE 75; RESP 20; TEMP 36.7; O2SAT 94
--- NOTE | 2024-05-08 12:32 | MHC.CM.PN ---
PT MEDICALLY CLEARED FOR DC BACK TO LTC AT [facility] VIA [facility] FOR BLS TRANSPORT AT 3:30PM, CM CONTACTED PT'S DTR /HCP MY AT NUMBER ON FILE, MY HAS ALREADY SPOKEN TO HOSPITALIST AND AGREEABLE TO PLAN, HERMELINDA SPOKE W/NURSE ON PT'S UNIT AT [facility]. NURSES STATION NUMBER [phone] GIVEN TO NURSE.
--- NOTE | 2024-05-08 13:04 | P.CONCA_ITS ---
History of Present Illness History of Present Illness Date of Service: 05/08/24 Requesting physician: Preeti Joshi Consult reason: other (Second-degree AV block) Chief complaint: Tia vs stroke Narrative: I was consulted to see Clifford in cardiology consultation today for noted AV block on EKG with possible AV dissociation. Patient is 78-year-old male brought from [facility] because of fall and weakness. Diagnose with a new stroke. Subsequent workup shows diffuse and significant atherosclerotic disease in both extracranial intracranial region. Echocardiogram done shows LVEF of 40-45%. He has prior history of Mobitz type 1 second-degree AV block and on the 12 lead EKG there was suggestion of AV dissociation and on the cardiac telemetry also was noted to have sometimes bradycardia and was noted to have AV dissociation. EKG performed today shows normal sinus rhythm with Mobitz type 1 second-degree AV block with accelerated junctional beats coinciding with sinus beats creating effect of AV dissociation. Patient was no other obvious cardiac symptoms. There is no history of syncope or lightheadedness. Patient is currently not on any rate lowering medications. Cardiology consult was sought for further management plan. Patient is not a good historian Review of Systems 2 Review of Systems: Yes Unobtainable due to mental status PMFSH Past Medical History Medical History CKD (chronic kidney disease) New onset of congestive heart failure Diverticulitis Dementia Hoffman esophagus Malignant neoplasm of prostate Cirrhosis of liver Family History Family History Father CAD (coronary artery disease) Surgical History Surgical History H/O radical prostatectomy Social History Social History Household Members: Other Housing: Intermediate Alcohol intake: former Patient Tobacco Use Status: Never used Tobacco Advance Directives Date on File: 12/22/21 service: Yes Current occupational status: retired Meds Allergies Allergy/AdvReac Type Severity Reaction Status Date / Time lisinopril [LISINOPRIL] Allergy Mild UNKNOWN Verified 05/06/24 14:25 baclofen [BACLOFEN] Allergy Unknown UNKNOWN Verified 06/17/23 14:06 shellfish derived Allergy Unknown UNKNOWN Verified 06/17/23 14:06 [SHELLFISH DERIVED] Active Medications: Current Medications Acetaminophen (Acetaminophen 325 Mg Tablet) 650 mg PO Q6H PRN PRN Reason: Pain, Mild (Pain Scale 1-3), fever or headache Allopurinol (Allopurinol 100 Mg Tablet) 50 mg PO DAILY [facility] Last Admin: 05/08/24 09:31 Dose: 50 mg Amlodipine Besylate (Amlodipine Besylate 2.5 Mg Tablet) 2.5 mg PO DAILY [facility]; Protocol Last Admin: 05/08/24 09:31 Dose: 2.5 mg Aspirin (Aspirin 81 Mg Tab.Chew) 81 mg PO DAILY [facility] Last Admin: 05/08/24 09:31 Dose: 81 mg Atorvastatin Calcium (Atorvastatin Calcium 40 Mg Tablet) 40 mg PO BEDTIME [facility] Last Admin: 05/07/24 21:21 Dose: 40 mg Calcium Carbonate (Calcium Carbonate 750 Mg Tab.Chew) 750 mg PO Q4H PRN PRN Reason: Heartburn Clopidogrel Bisulfate (Clopidogrel Bisulfate 75 Mg Tablet) 75 mg PO DAILY [facility] Last Admin: 05/08/24 09:32 Dose: 75 mg Heparin Sodium (Porcine) (Heparin Sodium,Porcine 5,000 Unit/Ml Vial) 5,000 unit SUBCUT Q12H [facility] Last Admin: 05/08/24 06:06 Dose: 5,000 unit Loratadine (Loratadine 10 Mg Tablet) 10 mg PO BEDTIME [facility] Last Admin: 05/07/24 21:21 Dose: 10 mg Magnesium Hydroxide (Milk Of Magnesia 30 Ml Oral.Susp) 30 ml PO DAILY PRN PRN Reason: Constipation Melatonin (Melatonin 3 Mg Tablet) 6 mg PO BEDTIME PRN PRN Reason: Insomnia Mirtazapine (Mirtazapine 30 Mg Tablet) 30 mg PO DAILY [facility] Last Admin: 05/08/24 09:32 Dose: 30 mg Multivitamins/Vitamin C (Multivitamin Tablet) 1 tab PO DAILY [facility] Last Admin: 05/08/24 09:32 Dose: 1 tab Ondansetron HCl (Ondansetron Hcl 4 Mg/2 Ml Vial) 4 mg IVPUSH Q8H PRN PRN Reason: Nausea and Vomiting Pantoprazole Sodium (Pantoprazole Sodium 20 Mg Tablet.Dr) 40 mg PO BID@0630,1630 [facility] Last Admin: 05/08/24 06:06 Dose: 40 mg Thiamine HCl (Thiamine Hcl 100 Mg Tablet) 100 mg PO DAILY [facility] Last Admin: 05/08/24 09:31 Dose: 100 mg Vitamin D (Cholecalciferol (Vitamin D3) 25 Mcg Tablet) 50 mcg PO DAILY [facility] Last Admin: 05/08/24 09:31 Dose: 50 mcg Home Medications ?Medication ?Instructions ?Recorded ?Confirmed ?Last Taken ?Type allopurinol 100 mg tablet 50 mg PO DAILY 12/18/21 05/06/24 12/16/21 History aspirin 81 mg chewable tablet 81 mg PO DAILY 12/18/21 05/06/24 12/17/21 History cholecalciferol (vitamin D3) 50 50 mcg PO DAILY 12/18/21 05/06/24 12/17/21 History mcg (2,000 unit) tablet loratadine 10 mg tablet 10 mg PO BEDTIME 12/18/21 05/06/24 12/17/21 History pantoprazole 40 mg tablet,delayed 40 mg PO BID 06/17/23 05/06/24 Unknown History release mirtazapine 30 mg tablet 30 mg PO DAILY 03/02/24 05/06/24 Unknown History multivitamin 1 tab PO DAILY 05/06/24 05/06/24 Unknown History nystatin 100,000 unit/gram topical 1 appl topical BID PRN groin rash 05/06/24 05/06/24 Unknown History powder thiamine HCl (vitamin B1) 100 mg 100 mg PO DAILY 05/06/24 05/06/24 Unknown History tablet Physical Exam 2 Vital Signs: Vital Signs: Last Vital Signs Temp 98.0 F 05/08/24 11:48 Pulse 75 05/08/24 11:48 Resp 20 05/08/24 11:48 BP 150/82 H 05/08/24 11:48 Pulse Ox 94 05/08/24 11:48 O2 Del Method Room Air 05/08/24 11:48 BMI result Body Mass Index 23.2 Const: General: cooperative, comfortable, no acute distress, alert and awake Nutritional Appearance: average body habitus HEENT: Head: Yes normocephalic and Yes atraumatic Neck: Neck: Yes trachea midline, Yes supple and Yes no JVD Resp: Effort & Inspection: normal respiratory effort Auscultation: clear to auscultation bilaterally Cardio: Jugular venous distension: no JVD Rhythm: abnormal rhythm regularly irregular Heart sounds: S1 normal heart sound present, S2 normal heart sound present, no click, no gallops and Murmur heart sound present systolic early GI: Auscultation: normal bowel sounds Skin: General skin exam: no rashes or lesions noted Neuro: General: no focal motor deficits Extrem: General: Yes no clubbing, cyanosis or edema Objective Labs and Meds 05/07/24 05:29 05/07/24 05:29 Assessment and Plan (1) Mobitz type 1 second degree atrioventricular block: Status: Acute Mobitz type 1 second-degree AV block in this elderly gentleman without any obvious syncope or near-syncope. This is unclear. Patient was no evidence of complete heart block. Does have AV dissociation due to accelerated junctional beats. At this point time unless he has symptoms of syncope or near-syncope or has more advanced AV block does not require pacing therapy. Avoid rate lowering medications. He probably has underlying structural heart disease with coronary disease that could explain his AV block. Follow-up as outpatient through his PCP's office. (2) Cardiomyopathy: Status: Acute [id number] LV systolic dysfunction, high likelihood of ischemic etiology. He has no symptoms related to it. No signs or symptoms of heart failure. Agree with high-intensity statin therapy and dual antiplatelet therapy with treat underlying vascular disease. Can not use beta-blockers neurohormonal modulation. Also can not use spironolactone like drugs or angiotensin receptor antagonist due to his renal insufficiency. Continue aggressive blood pressure control, currently on amlodipine therapy. Will sign of the case. Thank you for allowing me to partake in his care Procedures Date of Service Date of Service: 05/08/24
[2024-05-08 15:26] VITALS: BP 141/83; PULSE 78; RESP 18; TEMP 36.3; O2SAT 100
== END 2024-05-08 17:32 | DRG 65 ==
LOC: HO.ED 15:25 → HO.EDOVER 16:38 → HO.IMC 05-07 20:16
PROVIDERS: Admitting Provider Nurse Practitioner Acute Care; Emergency Provider Emergency Medicine; PCP Internal Medicine; Visit Provider Physician Assistant Medical
DX: I63.30 Cerebral infarction due to thrombosis of unspecified cerebral artery (principal); G81.91 Hemiplegia, unspecified affecting right dominant side; N17.9 Acute kidney failure, unspecified; I65.21 Occlusion and stenosis of right carotid artery; I44.1 Atrioventricular block, second degree; G30.9 Alzheimer's disease, unspecified; F02.80 Dementia in other diseases classified elsewhere, unspecified severity, without behavioral disturbance, psychotic disturbance, mood disturbance, and anxiety; I25.5 Ischemic cardiomyopathy; N18.30 Chronic kidney disease, stage 3 unspecified; Z66 Do not resuscitate; R29.810 Facial weakness; R29.702 NIHSS score 2; E86.1 Hypovolemia; Z79.82 Long term (current) use of aspirin; Z79.899 Other long term (current) drug therapy
CPT/HCPCS: 36415; 70450; 70496; 70498; 70551; 80048; 80061; 82947; 84484; 85025; 85610; 85730; 92610; 93005; 93306; 97162; 97165; 99285; J1644; Q9967

== ENCOUNTER → 2024-05-06 13:57 | Outpatient (BNV) | payer OTHER, SELFPAY | PROVIDERS: Admitting Provider Nurse Practitioner Acute Care; Emergency Provider Emergency Medicine; Visit Provider Internal Medicine Cardiovascular Disease | DX: R94.31 Abnormal electrocardiogram [ECG] [EKG] (principal) | CPT/HCPCS: 93010 ==

== ENCOUNTER 2024-05-06 16:22 | Outpatient (BNV) | payer OTHER, SELFPAY | END 2024-05-07 07:00 | PROVIDERS: Admitting Provider Nurse Practitioner Acute Care; Emergency Provider Emergency Medicine; PCP Internal Medicine; Visit Provider Internal Medicine Cardiovascular Disease | DX: I36.1 Nonrheumatic tricuspid (valve) insufficiency (principal); I35.8 Other nonrheumatic aortic valve disorders; I34.81 Nonrheumatic mitral (valve) annulus calcification | CPT/HCPCS: 93306 ==

== ENCOUNTER 2024-05-06 16:22 | Outpatient (BNV) | payer OTHER, SELFPAY | END 2024-05-08 11:26 | PROVIDERS: Admitting Provider Nurse Practitioner Acute Care; Emergency Provider Emergency Medicine; PCP Internal Medicine; Visit Provider Internal Medicine Cardiovascular Disease | DX: R94.31 Abnormal electrocardiogram [ECG] [EKG] (principal) | CPT/HCPCS: 93010 ==

== ENCOUNTER → 2024-05-06 16:22 | Outpatient (BNV) | payer OTHER, SELFPAY | PROVIDERS: Admitting Provider Nurse Practitioner Acute Care; Emergency Provider Emergency Medicine; PCP Internal Medicine; Visit Provider Internal Medicine Cardiovascular Disease | DX: I44.1 Atrioventricular block, second degree (principal); I42.9 Cardiomyopathy, unspecified | CPT/HCPCS: 99222 ==

== ENCOUNTER → 2024-05-06 16:22 | Outpatient (BNV) | payer OTHER, SELFPAY | PROVIDERS: Admitting Provider Nurse Practitioner Acute Care; Emergency Provider Emergency Medicine; PCP Internal Medicine; Visit Provider Psychiatry & Neurology Neurology | DX: I63.30 Cerebral infarction due to thrombosis of unspecified cerebral artery (principal) | CPT/HCPCS: 99222 ==

== ENCOUNTER → 2024-05-06 16:22 | Outpatient (BNV) | payer OTHER, SELFPAY | PROVIDERS: Admitting Provider Nurse Practitioner Acute Care; Emergency Provider Emergency Medicine; PCP Internal Medicine; Visit Provider Physician Assistant Surgical | DX: I65.21 Occlusion and stenosis of right carotid artery (principal) | CPT/HCPCS: 99222; 99231; 99499 ==

== ENCOUNTER → 2024-05-06 16:22 | Outpatient (BNV) | payer OTHER, SELFPAY | PROVIDERS: Admitting Provider Nurse Practitioner Acute Care; Emergency Provider Emergency Medicine; PCP Internal Medicine; Visit Provider Nurse Practitioner Acute Care | DX: I63.30 Cerebral infarction due to thrombosis of unspecified cerebral artery (principal); I65.21 Occlusion and stenosis of right carotid artery; I25.10 Atherosclerotic heart disease of native coronary artery without angina pectoris | CPT/HCPCS: 99223; 99232; 99239 ==

== ENCOUNTER 2024-05-15 05:59 | Outpatient (REF) | payer OTHER, SELFPAY ==
[2024-05-15 06:02] LABS: MANUAL DIFF FLAG NO
[2024-05-15 06:52] LABS: Basophils Percent Auto 0.6 % (0-2); Eosinophils Absolute Auto 0.1 X10*3/uL (0.0-0.4); Eosinophils Percent Auto 1.4 % (0-4); Hemoglobin 13.2 g/dl (14.0-18.0); Imm Gran Abs Auto 0.03 X10*3/uL (0.00-0.03); Imm Gran Pct Auto 0.4 % (0.0-0.4); Mean Corpuscular HGB Conc 33.8 g/dl (31.0-36.0); Mean Corpuscular Volume 82.8 fL (80.0-98.0); Mean Platelet Volume 10.2 fL (9.4-12.4); Monocytes Absolute Auto 0.7 X10*3/uL (0.1-1.2); Monocytes Percent Auto 10.3 % (2-11); Neutrophils Absolute Auto 4.3 x10*3/uL (2.0-8.3); Neutrophils Percent Auto 59.3 % (45-73); Platelet Count 178 X10*3/uL (160-400); Red Blood Count 4.71 X10*6/uL (4.60-5.80); Red Cell Distribution Width 14.9 % (11.0-16.0); White Blood Count 7.2 X10*3/uL (4.8-10.8)
[2024-05-15 06:55] LABS: Anion Gap 13 (12-20); Blood Urea Nitrogen 22 mg/dL (9-16); Carbon Dioxide 20 mmol/L (22-29); Chloride 112 mmol/L (96-108); Estimated Glomerular Filt Rate 29; Glucose Random 97 mg/dL (60-115); Potassium 4.2 mmol/L (3.3-5.1); Sodium 141 mmol/L (135-145)
== END 2024-05-15 06:00 | disposition home or self-care (01) ==
LOC: HO.HSH3N 05:59
PROVIDERS: Visit Provider Nurse Practitioner Acute Care
DX: I50.9 Heart failure, unspecified (principal); I45.9 Conduction disorder, unspecified
CPT/HCPCS: 36415; 80048; 85025

== ENCOUNTER 2024-05-21 09:10 | Outpatient (AMB) | payer OTHER, SELFPAY ==
[2024-05-21 09:16] VITALS: BP 100/62; PULSE 76; BMI 23.7
--- NOTE | 2024-05-21 09:16 | A.OFFVIS_ITS ---
Vital Signs 05/21/24 09:16 Height 5 ft 10 in Weight 165 lb BMI 23.7 BP 100/62 Blood Pressure Location Lt brachial Position Sitting Pulse 76 Pulse Source Pulse Oximeter Intake Visit Reasons: ED follow up Chemistry Laboratory Technician Required: No Accompanied by: Self / Same As Patient Allergies lisinopril [LISINOPRIL] Allergy (Mild, Verified 05/06/24 14:25) UNKNOWN baclofen [BACLOFEN] Allergy (Unknown, Verified 06/17/23 14:06) UNKNOWN shellfish derived [SHELLFISH DERIVED] Allergy (Unknown, Verified 06/17/23 14:06) UNKNOWN Medication List - Last Reconciled 05/21/24 by Nnamdi Damon MD allopurinol 50 mg PO DAILY amlodipine 2.5 mg See Protocol PO DAILY 90 days aspirin 81 mg PO DAILY atorvastatin 40 mg PO BEDTIME 90 days cholecalciferol (vitamin D3) 50 mcg PO DAILY clopidogrel 75 mg PO DAILY 90 days loratadine 10 mg PO BEDTIME mirtazapine 30 mg PO DAILY multivitamin 1 tab PO DAILY nystatin 1 appl topical BID PRN pantoprazole 40 mg PO BID thiamine HCl (vitamin B1) 100 mg PO DAILY HPI Comments Details: Clifford returns for follow-up of various cardiac issues. During prior hospitalization for cholecystitis, had NSTEMI. Echocardiogram was suggestive of wall motion abnormalities/underlying coronary disease. However, multiple medical comorbidities including cirrhosis, CKD and dementia. Hence it was felt that he is not a good candidate for cardiac catheterization. Medically treated. He also has Mobitz type 1 second-degree heart block. Recently, he was admitted for stroke type symptoms and in that setting, Cardiology was consulted for concern of heart block. Noted to be Mobitz type 1 block but recommended only conservative care considering his comorbidities. According to [facility] staff, he is gradually declining. Less appetite. Less mobility. Overall, not doing great. However, no clear-cut cardiac symptoms like syncope or angina. [facility] Medical History CKD (chronic kidney disease) New onset of congestive heart failure Diverticulitis Dementia Hoffman esophagus Malignant neoplasm of prostate Cirrhosis of liver Surgical History H/O radical prostatectomy Family History Father CAD (coronary artery disease) Social History Household Members: Other Housing: [facility] Alcohol intake: former Patient Tobacco Use Status: Never used Tobacco Advance Directives Date on File: 12/22/21 service: Yes Current occupational status: retired Review of Systems Const Denies chills, Denies fatigue, Denies fever(s), Denies frequent falls, Denies weakness, Denies weight gain and Denies weight loss ENT Denies dizziness Card Denies chest pain, Denies leg edema, Denies lightheadedness, Denies palpitations, Denies dyspnea and Denies dyspnea on exertion Resp Denies cough, Denies dyspnea and Denies dyspnea on exertion GI Denies hematochezia Musc Denies abnormal gait, Denies muscle weakness, Denies numbness, Denies radiating pain into limb and Denies tingling Neuro Denies abnormal gait, Denies dizziness, Denies frequent falls, Denies numbness, Denies tingling and Denies weakness Endo Denies fatigue and Denies palpitations Physical Exam Vital Signs: Last Vital Signs Pulse 76 05/21/24 09:16 BP 100/62 05/21/24 09:16 BMI result Body Mass Index 23.7 Const General: comfortable and no acute distress Orientation/consciousness: patient oriented x3 HEENT Other: Unremarkable Head: Yes normal to inspection Neck Neck: Yes normal visual inspection Chest Chest palpation & inspection: normal inspection of the chest Resp Auscultation: clear to auscultation bilaterally Cardio Palpation: normal PMI Heart sounds: S1 normal heart sound present, S2 normal heart sound present, no gallops, no murmurs and no rubs GI Palpation (GI): Soft to palpation Back/Spine/Pelvis Other: unremarkable Skin General skin exam: no rashes or lesions noted Neuro General: patient oriented x3 Extrem General: Yes normal to inspection Psych Mental Status: mental status grossly normal Assessment & Plan Assessment & Plan (1) Atherosclerotic cardiovascular disease: Code(s): I25.10 - Atherosclerotic heart disease of [place] coronary artery without angina pectoris Category: Medical (2) NSTEMI (non-ST elevated myocardial infarction): Code(s): I21.4 - Non-ST elevation (NSTEMI) myocardial infarction Category: Medical (3) Cardiomyopathy: Code(s): I42.9 - Cardiomyopathy, unspecified Category: Medical (4) Heart block: Code(s): I45.9 - Conduction disorder, unspecified Category: Medical Plan In the most recent echocardiogram, LVEF is 40-45%. Similar to prior study. In a previous study, wall motion abnormalities were described. Last EKG shows conduction system disease including Mobitz type 1 second-degree heart block as well as right bundle-branch block. In the Holter, underlying rhythm is sinus with an average rate of 55/Min. Frequent Mobitz type 1 second-degree heart block with evidence of PVCs. Overall, suspected coronary disease, mid range LVEF, many comorbidities including dementia, cirrhosis, probable portal hypertension, splenomegaly, chronic kidney disease, recent cerebrovascular accident. Discussed with patient's daughter as well as nurse from [facility]. Considering his many comorbidities, do not recommend any aggressive care from cardiac. With regard to question of pacemaker, no absolute indications at this time and patient as well as daughter also would keep it that way. They would rather not have any procedures. With regard to antiplatelet therapy, at his age, there is risk of bleeding. Hence may use aspirin/Plavix for about 6 weeks or so from the time of stroke but then use mainly Plavix. He also apparently gets acid reflux type symptoms. He has a previously scheduled follow-up appointment in August. We can keep that. Goals of care will need to be discussed and they would do that with his provider at [facility]. Coding Level of Care Code Est Pt Level 4 (04782) Diagnoses Atherosclerotic cardiovascular disease I25.10 NSTEMI (non-ST elevated myocardial infarction) I21.4 Cardiomyopathy I42.9 Heart block I45.9
== END 2024-05-21 09:49 | disposition home or self-care (01) ==
PROVIDERS: PCP Internal Medicine; Visit Provider Internal Medicine
DX: I25.10 Atherosclerotic heart disease of native coronary artery without angina pectoris (principal); I21.4 Non-ST elevation (NSTEMI) myocardial infarction; I42.9 Cardiomyopathy, unspecified; I45.9 Conduction disorder, unspecified
CPT/HCPCS: 99214

== ENCOUNTER → 2024-05-21 09:10 | Outpatient (BNVA) | payer OTHER, SELFPAY | PROVIDERS: PCP Internal Medicine; Visit Provider Internal Medicine | DX: I25.10 Atherosclerotic heart disease of native coronary artery without angina pectoris (principal); I21.4 Non-ST elevation (NSTEMI) myocardial infarction; I42.9 Cardiomyopathy, unspecified; I45.9 Conduction disorder, unspecified | CPT/HCPCS: 99212 ==

== ENCOUNTER 2024-05-22 06:14 | Outpatient (REF) | payer OTHER, SELFPAY ==
[2024-05-22 06:41] LABS: Appearance Urine Turbid; Color Urine Dark Yellow; Glucose Urine UA Negative (Negative); Leukocyte Esterase Urine Negative (Negative); Nitrite Urine Negative (Negative); PH 5.5 (5.0-9.0); Specific Gravity - Urine 1.025 (1.005-1.025); Urine Blood Negative (Negative); Urine Ketones Negative (Negative); Urine Protein Trace mg/dL (Neg-Trace)
== END 2024-05-22 06:15 | disposition home or self-care (01) ==
LOC: HO.HSH3N 06:14
PROVIDERS: Visit Provider Nurse Practitioner Acute Care
DX: R30.9 Painful micturition, unspecified (principal)
CPT/HCPCS: 81003

== ENCOUNTER 2024-05-23 09:59 | Outpatient (REF) | payer OTHER, SELFPAY ==
[2024-05-23 10:29] LABS: Alanine Aminotransferase 28 U/L (0-40); Albumin Level 3.6 g/dL (3.5-5.0); Alkaline Phosphatase 99 U/L (39-117); Aspartate Amino Transferase 41 U/L (5-37); Bilirubin Direct 0.3 mg/dL (0.0-0.5); Bilirubin Total 0.6 mg/dL (0.0-1.0); Total Protein 6.6 g/dL (6.5-8.0)
== END 2024-05-23 10:00 | disposition home or self-care (01) ==
LOC: HO.HSH3N 09:59
PROVIDERS: Visit Provider Nurse Practitioner Acute Care
DX: M10.9 Gout, unspecified (principal); K74.60 Unspecified cirrhosis of liver
CPT/HCPCS: 36415; 80076; 84550

== ENCOUNTER 2024-05-26 11:19 | Outpatient (AMB) | payer OTHER, SELFPAY ==
--- NOTE | 2024-05-26 11:20 | MHC.OFFVIS ---
Intake Visit Reasons: follow up for severe carotid stenosis Intake Note: Follow up carotid stenosis. No complaints. Accompanied by: Daughter Allergies lisinopril [LISINOPRIL] Allergy (Mild, Verified 05/28/24 09:39) UNKNOWN baclofen [BACLOFEN] Allergy (Unknown, Verified 05/28/24 09:39) UNKNOWN shellfish derived [SHELLFISH DERIVED] Allergy (Unknown, Verified 05/28/24 09:39) UNKNOWN HPI HPI follow up for severe carotid stenosis: Details: Very complex 78-year-old gentleman presents for evaluation regarding high-grade carotid stenosis. He had actually been seen in the hospital on 05/08/2024. At that time he had been admitted for an acute stroke. He was placed on aspirin statin and cholesterol pill as well. In the interim he has been seen by district sales leader due to various cardiac issues. He does have a prior history of a non-STEMI. In addition he has multiple medical comorbidities including CKD cirrhosis dementia and is mostly sedentary requiring a wheelchair to get from place to place. He is at the [facility] and his general condition has been progressively declining. [facility] Medical History CKD (chronic kidney disease) New onset of congestive heart failure Diverticulitis Dementia Hoffman esophagus Malignant neoplasm of prostate Cirrhosis of liver Surgical History H/O radical prostatectomy Family History Father CAD (coronary artery disease) Social History Household Members: Other Housing: Alf Alcohol intake: former Patient Tobacco Use Status: Never used Tobacco Smoked in Last 30 Days: No Use of substances other than those prescribed or required for medical reasons: No Advance Directives: Yes Advance Directives on File: Yes Advance Directives Date on File: 12/22/21 Do you have a plan to hurt others: No Plan service: Yes Current occupational status: retired Review of Systems Const All systems reviewed & are unremarkable except as noted in HPI and below Reports no additional complaints ENT Reports Normal hearing present Card Denies chest pain, Denies chest pain at rest, Denies chest pain with activity and Denies pedal edema Resp Denies cough GI Denies abdominal pain Musc Denies abnormal gait, Denies muscle cramps and Denies radiating pain into limb Skin/Breast Denies skin ulcer and Denies wounds Neuro Reports Normal hearing present and Denies abnormal gait Psych Reports no additional complaints Physical Exam Const General: cooperative, healthy appearing and comfortable Orientation/consciousness: oriented to person, oriented to place and oriented to time HEENT Head: Yes normal to inspection Neck Neck: Yes normal visual inspection Carotids: no bruits Chest Chest palpation & inspection: normal inspection of the chest Resp Effort & Inspection: normal respiratory effort and able to speak in complete sentences Auscultation: clear to auscultation bilaterally, no crackles, no rales, no rhonchi and no wheezes Cardio Rate: regular rate Rhythm: regular rhythm Heart sounds: S1 normal heart sound present and S2 normal heart sound present Bruits: no carotid bruits Peripheral pulses: Peripheral pulses 2+ throughout GI Inspection: Yes normal to inspection Skin Wounds: no wounds Hair: normal Neuro General: oriented to person, oriented to place and oriented to time Cranial nerves: Yes CN's II-XII intact bilaterally and Yes Normal hearing present Cognition (Neuro): normal cognition Motor exam (neuro): 5/5 motor strength present throughout Extrem Other: venous exam: No significant superficial varicosities or spider telangiectasias, minimal edema General: No clubbing, No cyanosis and No edema Psych Appearance: grossly normal Mental Status: mental status grossly normal Speech and movement: Normal speech and movement present Results Reviewed Results Reviewed: CT angiogram from 05/06/2024 demonstrates high-grade right carotid stenosis of greater than 90%. Written report and images were reviewed. Assessment & Plan Assessment & Plan (1) Carotid stenosis, right: Code(s): I65.21 - Occlusion and stenosis of right carotid artery Category: Medical Plan: In short patient has high-grade right carotid stenosis. I had a very maria luz discussion with the patient and daughter at bedside. Due to his overall comorbidities and cardiac condition I do not believe that he is a candidate for open carotid surgery. In addition the anatomy is not suitable for TCAR or transfemoral carotid artery stenting. Due to his overall condition would recommend only conservative management. Family is in agreement and they were not interested in any surgery at the current time. He does appear to be optimized from medication standpoint. We will follow up with him on an as needed basis. Thank you for allowing us to assist in his care. Coding Level of Care Code Est Pt Level 4 (81756) Complex EM visit Add On G2211 Diagnoses Carotid stenosis, right I65.21
== END 2024-05-26 11:48 | disposition home or self-care (01) ==
PROVIDERS: PCP Internal Medicine; Visit Provider Surgery Vascular Surgery
DX: I65.21 Occlusion and stenosis of right carotid artery (principal)
CPT/HCPCS: 99213; G2211

== ENCOUNTER → 2024-05-26 11:19 | Outpatient (BNVA) | payer OTHER, SELFPAY | PROVIDERS: PCP Internal Medicine; Visit Provider Surgery Vascular Surgery | DX: I65.21 Occlusion and stenosis of right carotid artery (principal) | CPT/HCPCS: 99212 ==

== ENCOUNTER 2024-05-28 06:18 | Outpatient (REF) | payer MEDICARE, SELFPAY ==
[2024-05-28 06:22] LABS: MANUAL DIFF FLAG NO
[2024-05-28 07:02] LABS: Basophils Percent Auto 0.5 % (0-2); Eosinophils Absolute Auto 0.2 X10*3/uL (0.0-0.4); Eosinophils Percent Auto 4.8 % (0-4); Hematocrit 37.1 % (42.0-52.0); Hemoglobin 12.1 g/dl (14.0-18.0); Imm Gran Abs Auto 0.02 X10*3/uL (0.00-0.03); Imm Gran Pct Auto 0.5 % (0.0-0.4); Lymphocytes Absolute Auto 1.3 X10*3/uL (1.2-4.9); Lymphocytes Percent Auto 28.9 % (20-40); Mean Corpuscular HGB Conc 32.6 g/dl (31.0-36.0); Mean Corpuscular Hemoglobin 27.4 pg (27.0-33.0); Mean Corpuscular Volume 84.1 fL (80.0-98.0); Mean Platelet Volume 10.1 fL (9.4-12.4); Monocytes Absolute Auto 0.6 X10*3/uL (0.1-1.2); Monocytes Percent Auto 13.2 % (2-11); Neutrophils Absolute Auto 2.3 x10*3/uL (2.0-8.3); Neutrophils Percent Auto 52.1 % (45-73); Platelet Count 159 X10*3/uL (160-400); Red Blood Count 4.41 X10*6/uL (4.60-5.80); Red Cell Distribution Width 14.6 % (11.0-16.0); White Blood Count 4.4 X10*3/uL (4.8-10.8)
[2024-05-28 07:20] LABS: Alanine Aminotransferase 27 U/L (0-40); Albumin Level 3.4 g/dL (3.5-5.0); Alkaline Phosphatase 94 U/L (39-117); Anion Gap 14 (12-20); Aspartate Amino Transferase 42 U/L (5-37); Bilirubin Total 0.5 mg/dL (0.0-1.0); Blood Urea Nitrogen 20 mg/dL (9-16); Calcium 8.5 mg/dL (8.4-10.2); Carbon Dioxide 21 mmol/L (22-29); Chloride 111 mmol/L (96-108); Estimated Glomerular Filt Rate 38; Glucose Fasting 90 mg/dL (60-99); Magnesium 2.1 mg/dL (1.6-2.6); Potassium 3.9 mmol/L (3.3-5.1); Sodium 142 mmol/L (135-145); Total Protein 6.1 g/dL (6.5-8.0)
== END 2024-05-28 06:19 | disposition home or self-care (01) ==
LOC: HO.HSH3N 06:18
PROVIDERS: Visit Provider Nurse Practitioner Acute Care
DX: I12.9 Hypertensive chronic kidney disease with stage 1 through stage 4 chronic kidney disease, or unspecified chronic kidney disease (principal); U07.1 COVID-19
CPT/HCPCS: 36415; 80053; 83735; 85025

== ENCOUNTER 2024-05-28 09:21 | Emergency (ER) | payer OTHER, SELFPAY ==
[2024-05-28 09:35] VITALS: BP 179/97; PULSE 81; RESP 20; TEMP 36.8; O2SAT 94; BMI 23.6
[2024-05-28 10:14] LABS: Appearance Urine Clear; Color Urine Yellow; Glucose Urine UA Negative (Negative); Leukocyte Esterase Urine Negative (Negative); Nitrite Urine Negative (Negative); PH 5.5 (5.0-9.0); UMIC TRIGGER UACC YES; Urine Blood Negative (Negative); Urine Ketones Negative (Negative); Urine Protein 30 (1+) mg/dL (Neg-Trace)
[2024-05-28 10:25] VITALS: BP 140/72; PULSE 75; RESP 15; O2SAT 97
[2024-05-28 10:32] LABS: Bacteria Urine None Seen (None Seen); Hyaline Casts Urine 0-2 /LPF (0-2); RBC Urine 0-2 /HPF (0-2); Squamous Epithelial Cell Urine 0-2 /HPF (0-2); WBC Urine 0-5 /HPF (0-5)
[2024-05-28 10:33] LABS: MANUAL DIFF FLAG NO
[2024-05-28 10:35] LABS: Basophils Percent Auto 0.6 % (0-2); Eosinophils Absolute Auto 0.1 X10*3/uL (0.0-0.4); Eosinophils Percent Auto 2.8 % (0-4); Hematocrit 39.1 % (42.0-52.0); Hemoglobin 12.9 g/dl (14.0-18.0); Imm Gran Abs Auto 0.02 X10*3/uL (0.00-0.03); Imm Gran Pct Auto 0.4 % (0.0-0.4); Lymphocytes Absolute Auto 0.8 X10*3/uL (1.2-4.9); Lymphocytes Percent Auto 17.7 % (20-40); Mean Corpuscular Hemoglobin 27.4 pg (27.0-33.0); Monocytes Absolute Auto 0.6 X10*3/uL (0.1-1.2); Monocytes Percent Auto 12.6 % (2-11); Neutrophils Absolute Auto 3.1 x10*3/uL (2.0-8.3); Neutrophils Percent Auto 65.9 % (45-73); Platelet Count 162 X10*3/uL (160-400); Red Blood Count 4.71 X10*6/uL (4.60-5.80); Red Cell Distribution Width 14.6 % (11.0-16.0); White Blood Count 4.7 X10*3/uL (4.8-10.8)
[2024-05-28 10:50] LABS: Alanine Aminotransferase 30 U/L (0-40); Albumin Level 3.4 g/dL (3.5-5.0); Alkaline Phosphatase 94 U/L (39-117); Anion Gap 12 (12-20); Aspartate Amino Transferase 38 U/L (5-37); Bilirubin Total 0.5 mg/dL (0.0-1.0); Blood Urea Nitrogen 20 mg/dL (9-16); Calcium 8.6 mg/dL (8.4-10.2); Carbon Dioxide 22 mmol/L (22-29); Chloride 110 mmol/L (96-108); Creatinine Clr Calc Pharmacy 34.5; Estimated Glomerular Filt Rate 37; Glucose Random 109 mg/dL (60-115); Sodium 140 mmol/L (135-145); Total Protein 6.3 g/dL (6.5-8.0)
--- NOTE | 2024-05-28 11:28 | ED_ITS ---
HPI - Male Genitourinary General Chief complaint: Urogenital-Male Stated complaint: CATHETER ISSUE,+COVID PER EMS Time Seen by Provider: 05/28/24 11:28 History of Present Illness ED Provider: David FALL Narrative: The patient is an 78-year-old male with a history of significant dementia. He lives at the [facility]. Apparently nursing staff at the [facility] felt that he had not been urinating recently. They did a bladder scan that showed a bladder volume of [address] to [address] a urinary catheter but were unsuccessful and so he was sent to the emergency room. The patient was apparently uncomfortable when he 1st arrived. I am seeing him after a urinary catheter has been placed and a large volume of urine has been drained from his bladder. He was having no complaints at the time that I saw him. He seemed quite demented and poorly oriented. He was not able to give any additional history. He denied any ongoing discomfort however. The patient had also recently been discovered to have COVID at the [facility]. The patient is DNR/DNI. Related Data Home Medications ?Medication ?Instructions ?Recorded ?Confirmed allopurinol 100 mg tablet 50 mg PO DAILY 12/18/21 05/28/24 aspirin 81 mg chewable tablet 81 mg PO DAILY 12/18/21 05/28/24 cholecalciferol (vitamin D3) 50 50 mcg PO DAILY 12/18/21 05/28/24 mcg (2,000 unit) tablet loratadine 10 mg tablet 10 mg PO BEDTIME 12/18/21 05/28/24 pantoprazole 40 mg tablet,delayed 40 mg PO BID 06/17/23 05/28/24 release mirtazapine 30 mg tablet 30 mg PO DAILY 03/02/24 05/28/24 multivitamin 1 tab PO DAILY 05/06/24 05/28/24 nystatin 100,000 unit/gram topical 1 appl topical BID PRN groin rash 05/06/24 05/28/24 powder thiamine HCl (vitamin B1) 100 mg 100 mg PO DAILY 05/06/24 05/28/24 tablet acetaminophen 325 mg tablet 650 mg PO Q6H PRN Pain (Scale 05/28/24 05/28/24 Score 1-3) aluminum-mag hydroxide-simethicone 30 ml PO TID PRN Heartburn 05/28/24 05/28/24 200 mg-200 mg-20 mg/5 mL oral susp (Mag-Al Plus) calcium carbonate 500 mg PO TID PRN Stomach Upset 05/28/24 05/28/24 famotidine 20 mg tablet 20 mg PO DAILY 05/28/24 05/28/24 lactase 3,000 unit tablet 3,000 unit PO QID PRN Dairy 05/28/24 05/28/24 loperamide 2 mg tablet 2 mg PO Q6H PRN Diarrhea 05/28/24 05/28/24 ondansetron 4 mg disintegrating 4 mg PO Q6H PRN Nausea And Vomiting 05/28/24 05/28/24 tablet polyethylene glycol 3350 17 gram 17 g PO DAILY PRN Constipation 05/28/24 05/28/24 oral powder packet Previous Rx's ?Medication ?Instructions ?Recorded amlodipine 2.5 mg tablet 2.5 mg PO DAILY 90 days #90 tabs 05/08/24 atorvastatin 40 mg tablet 40 mg PO BEDTIME 90 days #90 tabs 05/08/24 clopidogrel 75 mg tablet 75 mg PO DAILY 90 days #90 tabs 05/08/24 Allergies Allergy/AdvReac Type Severity Reaction Status Date / Time lisinopril [LISINOPRIL] Allergy Mild UNKNOWN Verified 05/28/24 09:39 baclofen [BACLOFEN] Allergy Unknown UNKNOWN Verified 05/28/24 09:39 shellfish derived Allergy Unknown UNKNOWN Verified 05/28/24 09:39 [SHELLFISH DERIVED] Review of Systems 2 Review of Systems: Yes all other systems are reviewed and are negative [facility] Past Medical History Medical History CKD (chronic kidney disease) New onset of congestive heart failure Diverticulitis Dementia Hoffman esophagus Malignant neoplasm of prostate Cirrhosis of liver Surgical History H/O radical prostatectomy Family History Family History Father CAD (coronary artery disease) Social History Social History Household Members: Other Housing: Longterm Alcohol intake: former Patient Tobacco Use Status: Never used Tobacco Smoked in Last 30 Days: No Use of substances other than those prescribed or required for medical reasons: No Advance Directives: Yes Advance Directives on File: Yes Advance Directives Date on File: 12/22/21 Do you have a plan to hurt others: No Plan service: Yes Current occupational status: retired Physical Exam 2 Vital Signs: Vital Signs: Last Vital Signs Temp 97.9 F 05/28/24 14:20 Pulse 68 05/28/24 14:20 Resp 16 05/28/24 14:20 BP 150/77 H 05/28/24 14:20 Pulse Ox 95 05/28/24 14:20 O2 Del Method Room Air 05/28/24 14:20 BMI result Body Mass Index 23.6 Const: Other: The patient is an 78-year-old male who seemed to be resting comfortably on the hospital stretcher. I examined him after a catheter has been placed by nursing. Apparently the patient had appeared uncomfortable prior to placement of the catheter but he appeared entirely comfortable when I saw him. He seems to be a severely demented 78-year-old male who is very poorly oriented. HEENT: Other: Face is symmetrical. Mucous membranes moist. Eyes: General: appearance normal, both eyes and all related structures Neck: Neck: Yes no JVD Resp: Effort & Inspection: normal respiratory effort Auscultation: clear to auscultation bilaterally Cardio: Rate: regular rate Rhythm: regular rhythm Heart sounds: S1 normal heart sound present and S2 normal heart sound present GI: Other: Abdomen was soft and nontender. Skin: Other: Skin was pale and dry Neuro: Other: The patient was resting. He awoke easily with gentle stimulation. He is poorly oriented. His demeanor suggests dementia. However his cranial nerves seem intact. He moves his extremities symmetrically. Extrem: Other: No peripheral edema Medical Decision Making Medical Decision Making MDM Narrative: The patient has been sent here from the [facility] after having been found to be an urinary retention and a catheter could not successfully be passed at the facility. Here nursing was able to place a urinary catheter without difficulty and drained a large volume of urine. The patient apparently has been uncomfortable before placement of the catheter but he was comfortable afterwards. He was also recently found to have COVID at the facility. The patient's labs show no significant worsening of his renal function. Urinalysis shows no signs of infection. I think he may return to the [facility] with his catheter in place. Lab Data 05/28/24 10:29 05/28/24 10:29 Labs: Lab Results 05/28/24 05/28/24 05/28/24 Range/Units 10:00 10:29 11:35 WBC 4.7 L (4.8-10.8) X10*3/uL RBC 4.71 (4.60-5.80) X10*6/uL Hgb 12.9 L (14.0-18.0) g/dl Hct 39.1 L (42.0-52.0) % MCV 83.0 (80.0-98.0) fL MCH 27.4 (27.0-33.0) pg MCHC 33.0 (31.0-36.0) g/dl RDW 14.6 (11.0-16.0) % Plt Count 162 (160-400) X10*3/uL MPV 10.0 (9.4-12.4) fL Immature Gran % (Auto) 0.4 (0.0-0.4) % Neut % (Auto) 65.9 (45-73) % Lymph % (Auto) 17.7 L (20-40) % [place] % (Auto) 12.6 H (2-11) % Eos % (Auto) 2.8 (0-4) % Baso % (Auto) 0.6 (0-2) % Lymph # (Auto) 0.8 L (1.2-4.9) X10*3/uL [place] # (Auto) 0.6 (0.1-1.2) X10*3/uL Eos # (Auto) 0.1 (0.0-0.4) X10*3/uL Baso # (Auto) 0.0 (0.0-0.2) X10*3/uL Abs Immat Gran (auto) 0.02 (0.00-0.03) X10*3/uL Absolute Neuts (auto) 3.1 (2.0-8.3) x10*3/uL Absolute Nucleated RBC 0.000 (0.0-0.012) X10*3/uL Nucleated RBC % (auto) 0.0 (0.0-0.2) /100WBC Sodium 140 (135-145) mmol/L Potassium 4.0 (3.3-5.1) mmol/L Chloride 110 H (96-108) mmol/L Carbon Dioxide 22 (22-29) mmol/L Anion Gap 12 (12-20) BUN 20 H (9-16) mg/dL Creatinine 1.76 H (0.5-1.4) mg/dL Estim Creat Clear Calc 34.5 Estimated GFR 37 Random Glucose 109 (60-115) mg/dL Calcium 8.6 (8.4-10.2) mg/dL Total Bilirubin 0.5 (0.0-1.0) mg/dL AST 38 H (5-37) U/L ALT 30 (0-40) U/L Alkaline Phosphatase 94 (39-117) U/L Total Protein 6.3 L (6.5-8.0) g/dL Albumin 3.4 L (3.5-5.0) g/dL Urine Color Yellow Urine Appearance Clear Urine pH 5.5 (5.0-9.0) Ur Specific [place] 1.020 (1.005-1.025) Urine Protein 30 (1+) H (Neg-Trace) mg/dL Urine Glucose (UA) Negative (Negative) mg/dL Urine Ketones Negative (Negative) mg/dL Urine Blood Negative (Negative) Urine Nitrite Negative (Negative) Ur Leukocyte Esterase Negative (Negative) Urine RBC 0-2 (0-2) /HPF Urine WBC 0-5 (0-5) /HPF Ur Squamous Epith Cells 0-2 (0-2) /HPF Urine Bacteria None Seen (None Seen) Hyaline Casts 0-2 (0-2) /LPF Influenza Type A (PCR) NEGATIVE (Negative) Influenza Type B (PCR) NEGATIVE (Negative) RSV RNA Qual (PCR) NEGATIVE (Negative) SARS-CoV-2 RNA (RT-PCR) POSITIVE A (Negative) Discharge Plan Discharge Clinical Impression: Acute urinary retention Patient Disposition: er LT Transfer Details[facility] Additional Instructions: An indwelling urinary catheter has been placed. His urine does not seem infected. His renal function seems to be at baseline. If he wishes he may follow up with the urology office. Prescriptions: No Action allopurinol 100 mg Tablet 50 mg PO DAILY aspirin 81 mg Tablet,Chewable 81 mg PO DAILY loratadine 10 mg Tablet 10 mg PO BEDTIME cholecalciferol (vitamin D3) 50 mcg (2,000 unit) Tablet 50 mcg PO DAILY acetaminophen 325 mg Tablet 650 mg PO Q6H PRN (Reason: Pain (Scale Score 1-3)) polyethylene glycol 3350 17 gram Powder In Packet 17 g PO DAILY PRN (Reason: Constipation) loperamide 2 mg Tablet 2 mg PO Q6H PRN (Reason: Diarrhea) famotidine 20 mg Tablet 20 mg PO DAILY calcium carbonate 500 mg calcium (1,250 mg) Tablet 500 mg PO TID PRN (Reason: Stomach Upset) lactase 3,000 unit Tablet 3,000 unit PO QID PRN (Reason: Dairy) Rx Instructions: administer with meals and/or snacks alum-mag hydroxide-simeth [Mag-Al Plus] 200-200-20 mg/5 mL Suspension 30 ml PO TID PRN (Reason: Heartburn) Rx Instructions: administer between meals and at bedtime ondansetron 4 mg Tablet,Disintegrating 4 mg PO Q6H PRN (Reason: Nausea And Vomiting) multivitamin Tablet 1 tab PO DAILY thiamine HCl (vitamin B1) 100 mg Tablet 100 mg PO DAILY nystatin 100,000 unit/gram Powder 1 appl TOPICAL BID PRN (Reason: groin rash) clopidogrel 75 mg Tablet 75 mg PO DAILY 90 Days Qty: 90 0RF amlodipine 2.5 mg Tablet 2.5 mg PO DAILY 90 Days Qty: 90 0RF Protocol: Hold for SBP< HOLD for SBP < : 90 atorvastatin 40 mg Tablet 40 mg PO BEDTIME 90 Days Qty: 90 0RF pantoprazole 40 mg tablet,delayed release (DR/EC) 40 mg PO BID mirtazapine 30 mg tablet 30 mg PO DAILY Referrals: [facility] [Provider Group] (Acute urinary retention requiring urinary catheter) [facility] [Outside] (Urinary retention requiring urinary catheter) Charlie Benjamin MD [Physician] - Interventions: ED Discharge Assessment Last Done: 05/28/24 14:20 Discharge Date/Time: 05/28/24 14:23 Print Language: Jordanian
--- NOTE | 2024-05-28 11:41 | PC.NURSE ---
Assumed care of this patient at 1100, FC placed by previous RN draining emilio clear urine, patient denies pain, resting quietly on stretcher at this time. SARS swab ordered to confirm COVID+ status.
--- NOTE | 2024-05-28 11:42 | ECG_ITS ---
Test Reason : IRREGULAR HEART RATE Blood Pressure : / mmHG Vent. Rate : 068 BPM Atrial Rate : 000 BPM P-R Int : 000 ms QRS Dur : 130 ms QT Int : 498 ms P-R-T Axes : 000 019 007 degrees QTc Int : 529 ms Normal sinus rhythm with 1st degree A-V block Right bundle branch block Abnormal ECG When compared with ECG of 08-MAY-2024 11:27, Mobitz type I AV block is not seen. Referred By: Monico Hernandez Electronically Signed By:KO HERMOSILLO MD
[2024-05-28 12:19] LABS: Influenza A PCR NEGATIVE (Negative); Influenza B PCR NEGATIVE (Negative); Resp Syncy Virus RNA Qual PCR NEGATIVE (Negative); SARS COV2 PCR INHOUSE POSITIVE (Negative)
--- NOTE | 2024-05-28 12:27 | PC.NURSE ---
Called 's home, spoke to Althea informed her patient will be on his way back once transport is arranged, all questions answered.
[2024-05-28 13:06] VITALS: BP 170/89; PULSE 70; RESP 15; TEMP 36.6; O2SAT 95
[2024-05-28 14:20] VITALS: BP 150/77; PULSE 68; RESP 16; TEMP 36.6; O2SAT 95
--- NOTE | 2024-05-28 14:56 | PHA.MEDREC ---
Pharmacy Consult ? Medication Reconciliation Pharmacy has completed the medication reconciliation. Used medication list from previous facility to conform meds. No fill history from pharmacy.
== END 2024-05-28 14:23 ==
PROVIDERS: Emergency Provider Emergency Medicine
DX: R33.9 Retention of urine, unspecified (principal); I45.10 Unspecified right bundle-branch block; R94.31 Abnormal electrocardiogram [ECG] [EKG]; Z03.818 Encounter for observation for suspected exposure to other biological agents ruled out; Z79.899 Other long term (current) drug therapy
CPT/HCPCS: 0241U; 36415; 51702; 80053; 81001; 85025; 93005; 99283; 99285

== ENCOUNTER → 2024-05-28 11:42 | Outpatient (BNV) | payer OTHER, SELFPAY | PROVIDERS: Emergency Provider Emergency Medicine; Visit Provider Internal Medicine Cardiovascular Disease | DX: R94.31 Abnormal electrocardiogram [ECG] [EKG] (principal) | CPT/HCPCS: 93010 ==

== ENCOUNTER 2024-06-08 06:41 | Outpatient (REF) | payer OTHER, SELFPAY ==
[2024-06-08 07:36] LABS: Anion Gap 11 (12-20); Blood Urea Nitrogen 15 mg/dL (9-16); Calcium 8.8 mg/dL (8.4-10.2); Carbon Dioxide 24 mmol/L (22-29); Chloride 111 mmol/L (96-108); Estimated Glomerular Filt Rate 37; Glucose Random 96 mg/dL (60-115); Potassium 4.3 mmol/L (3.3-5.1); Sodium 142 mmol/L (135-145)
== END 2024-06-08 06:42 | disposition home or self-care (01) ==
LOC: HO.HSH3N 06:41
PROVIDERS: Visit Provider Nurse Practitioner Acute Care
DX: I25.10 Atherosclerotic heart disease of native coronary artery without angina pectoris (principal); N18.9 Chronic kidney disease, unspecified
CPT/HCPCS: 36415; 80048

== ENCOUNTER 2024-06-18 06:16 | Outpatient (REF) | payer OTHER, SELFPAY ==
--- OUTSIDE RECORDS SUMMARY | 2024-06-18 06:21 | XMS_ITS | Encounter Summary ---
Author Organization [employer] Address [address] [facility] [address] [place] [address] Care Team Providers Care Disability Program Navigator Name Role Phone Unavailable Primary Care Provider Unavailabl e Encounter Details Date Type Department Care Team (Late st Contact Info) Description 06/20/2023 Abstract [facility] [address] [place] [address] Robin Pastor, ANEESH [address] [facility] [place] [address] Social History Tobacco Use Types Packs/Day Years Used Date Smoking Tobacco: Never Passive Smoke Exposure: Never Smokeless Tobacco: Never Alcohol Use Standard Drinks/Week Comments Defer 0 (1 standard drink = 0.6 oz pur e alcohol) Sex and Gender Information Value Date Recorded Sex Assigned at Male 03/26/2022 10:38 AM EDT Legal Sex Male 10:38 AM EDT Gender Identity Male 03/26/2022 10:38 AM EDT Sexual Orientation Straight 03/26/2022 10 :38 AM EDT documented as of this encounter Plan of Treatment Not on file documented as of this encounter Visit Diagnoses Not on filedocumented in this encounter
--- OUTSIDE RECORDS SUMMARY | 2024-06-18 06:21 | XMS_ITS | Patient Health Record ---
Author Organization [facility] Address [address] [place] [address] Care Team Providers Care Paper Reclaiming Machine Operator Name Role Phone VikasstaciaThais Primary Care Provider UnavailLc Harrison Unavailable [phone] Tatum MURRELL, Jamison Unavailable Unavailable ALLERGIES Allergen (clinical drug ingredient) Drug/Non Drug Allergy documented on EMR Reaction Allergy Type Onset Date Status sildenafil Sildenafil Unknown Drug Allergy Activ e lisinopril Lisinopril Unknown Drug Allergy Activ e baclofen Baclofen Unknown Drug Allergy Active REASON FOR REFERRAL No Information MEDICATIONS Medication SIG (Take, Route, Frequency, Duration) Notes Start Date End Date Status Metoprolol Succinate ER 25 MG 1 tablet O rally Once a day for 30 day(s) Active oxyCODONE HCl 5 MG 1 tablet as needed Orally every 6 hrs Active Folic Acid 1 MG 1 tablet Orally Once a day for 30 day(s) Active Pantoprazole Sodium 40 MG 1 tablet Orall y Once a day for 30 day(s) Active Mirtazapine 15 MG 1 tablet at bedtime Orally Once a day for 30 day(s) Active ibuprofen 1 tab Oral for 14 days Active Diphenhydramine 1 tab Oral for 14 days Active IMMUNIZATIONS Vaccine Route Administration Date Status Comme nts Influenza Unknown 02/12/2023 Administered SOCIAL HISTORY Tobacco Use: Social History Observation Description Date Details (start date - stop date) Never Smoker NA - NA Sex Assigned At : Social History Observation Description Sex Assigned At Unknown Tobacco Use/Smoking Question Answer Notes Patient is a nonsmoker Alcohol Screen Question Answer Notes Did you have a drink containing alcohol in the p ast year? No Points 0 Interpretation Negative PROBLEMS Problem Type ICD Code Onset Dates Problem Status W/U Status Risk SNOMED Code Notes Problem Cirrhosis (K74.60) Active confirmed Cirrhotic (735048120) Problem Chronic GERD (K21.9) Active confirmed Gastroesophagea l reflux disease (879768165) 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 Hoffman esophag us (592279316) Problem Alcoholic cirrhosis of liver (K70.30) Active confirmed Alcoholic cirrh osis of liver (277174000) VITAL SIGNS Temperature 97.5 degrees Fahrenheit 07/10/2023 Blood pressure diastolic 00 mm Hg 07/10/2023 Height 5 ft 9 in in 07/10/2023 Blood pressure systolic 000 mm Hg 07/10/2023 Weight 171 lbs 07/10/2023 BMI 25.25 kg/m2 07/10/2023 Encounters Encounter Location Date Provider Diagnosis [facility] [address] [place] [address] 10/30/2023 Lc Avalos [facility] [address] [place] [address] 07/10/2023 Lc Avalos Chronic GERD K21.9 ; Hoffman esophagus K22.70 and Alcoholic cirrhosis of liver K70.30 ASSESSMENTS Encounter Date Diagnosis Assessment Notes Treatment Notes Treatment Clinical Notes 07/10/2023 Hoffman esophagus (ICD-10 - K22.70) 07/10/2023 Chronic GERD (ICD-10 - K21.9) Continue daily Pantoprazole and the prn night time antacids. You can increase the Pantpraozle to twice a day, or just add a H2-mandy in the evening as well I don't think you need an upper endoscopy at this point at age 77 since there are no worrisome symptoms. Call if things worsen. 07/10/2023 Alcoholic cirrhosis of liver (ICD-10 - K70.30) PLAN OF TREATMENT No Information Insurance Providers Payer Name Payer Address Payer Phone Subscriber Number Group Number Insured Name Patient Relationship to Insured Coverage Start Date Coverage End Date MEDICARE OF [facility] [address] [place] [address] [id number] MARIANNE DAVILA Self - patient is the insured MEDICAL (GENERAL) HISTORY Medical History History ICD Code Coronary artery disease with previous ID GERD was reported Hoffman's esophagus, although I don't have any records of previous endoscopies Alcohol-induced cirrhosis wi th sobriety since about 2019. He has not had any complications such as ascites or variceal bleeding as far as I know. A CT scan and MRI in 2021 were negative for any sign of liver mass Gallstones with cholecystiti s in 2021. MRCP was negative for choledocholithiasis. The cholecystitis was treated with IV antibiotics with Dr. Moreira. He opted to hold off on surgery given his age and underlying liver disease. Denies DM,CVA,Lung disease,renal disease Prostate cancer with surgery as below There is a report of either dementia or some memory issues Surgical History Surgery Date(Month/Year) [facility]ctomy [facility]
--- OUTSIDE RECORDS SUMMARY | 2024-06-18 06:21 | XMS_ITS | Encounter Summary ---
Author Organization [employer] Address [address] [facility] [address] [place] [address] Care Team Providers Care Escrow Closer Name Role Phone Unavailable Primary Care Provider Unavailabl e Encounter Details Date Type Department Care Team (Latest Contact Info) Description 01/03/2022 Abstract [facility] Dental, Provider, DDS Social History Tobacco Use Types Packs/Day Years Used Date Smoking Tobacco: Never Assessed Sex and Gender Information Value Date Recorded [...]
--- OUTSIDE RECORDS SUMMARY | 2024-06-18 06:21 | XMS_ITS | Clinical Summary ---
Author Organization [employer] Address [address] [facility] [address] [place] [address] Care Team Providers Care Travel Services Professional Name Role Phone Unavailable Primary Care Provider Unavailabl e Allergies Active Allergy Reactions Criticality Noted Date Comments Baclofen 10/26/2020 Lisinopril 10/26/2020 Shellfish-Derived Products 3 Medications acetaminophen (Tylenol) 325 MG capsule Active allopurinol (Zyloprim) 100 MG tablet Take 1 tablet by mouth at bed time. Active aluminum & magnesium hydroxide-simet hicone (Mylanta) 200-200-20 MG/5ML oral suspension Take 10 mL by mouth. Active aspirin 81 MG EC tablet Take 1 tablet by mouth at bed time. Active cholecalciferol (Vitamin D-3) 25 MCG (1000 UT) capsule Place into mouth between cheek and gum at bed time. Active clopidogrel (Plavix) 75 MG tablet Take 1 tablet by mouth at bed time. Active folic acid (Folvite) 1 MG tablet Take 1 tablet by mouth at bed time. Active loperamide (Imodium A-D) 2 MG tablet Take 2 tablets by mouth. Active loratadine (Claritin) 10 MG tablet Take 1 tablet by mouth at bed time. Active magnesium hydroxide (Milk of Magnesia) 400 MG/5ML suspension Take 30 mL by mouth at bed time. Active metoprolol succinate XL (Toprol-XL) 25 MG 24 hr tablet Take 1 tablet by mouth at bed time. Active ondansetron (Zofran) 4 MG tablet take 2 tablet by oral route every 8 hours for 2 days Active mirtazapine (Remeron) 15 MG tablet Take 1 tablet by mouth at bed time. Active pantoprazole (ProtoNix) 40 MG EC tablet Take 1 tablet by mouth at bed time. Active sodium phosphate (Fleets) 7-19 GM/118ML enema enema Active traMADol (Ultram) 50 MG tablet 12/04/2022 Active Encounters Date Type Department Care Team Description 04/01/2024 2:15 PM EST Office Visit [facility] [address] [place], [place] [id number] Robin Pastor DMD from Last 3 Months Social History Tobacco Use Types Packs/Day Years Used Date Smoking Tobacco: Never Passive Smoke Exposure: Never Smokeless Tobacco: Never Tobacco Cessation:Counseling Given: Not Answered Alcohol Use Standard Drinks/Week Comments Defer 0 (1 standard drink = 0.6 oz pur e alcohol) Sex and Gender Information Value Date Recorded Sex Assigned at Male 03/26/2022 10:38 AM EDT Legal Sex Male 10:38 AM EDT Gender Identity Male 03/26/2022 10:38 AM EDT Sexual Orientation Straight 03/26/2022 10 :38 AM EDT Last Filed Vital Signs Vital Sign Reading Time Taken Comments Blood Pressure 120/76 03/06/2023 10:26 AM EDT Pulse 69 03/06/2023 10:26 AM EDT Temperature - - Respiratory Rate - - Oxygen Saturation - - Inhaled Oxygen Concentration - - Weight - - Height - - Body Mass Index - - Plan of Treatment Health Maintenance Due Date Last Done Comments Dental X-Ray: Full Mouth 1943 Depression Screening 1943 Lipid Panel 1943 SDOH Screening 1943 Alcohol/Substance Use Screening 1955 Zoster Vaccines (2 of 3) 01/18/2016 11/23/2015 RSV Patients and Patients Aged 60 years or older (1 - 1-dose 75+ series) 09/28/2018 Dental Oral Exam 04/06/2023 10/03/2022 Dental Prophylaxis 06/22/2023 12/19/2022, 0 09/19/2022, 05/31/2022, Additional history exists Dental X-Ray: Bitewings 12/21/2023 12/19/2022 COVID-19 Vaccine ( season) 2024 03/14/2023, 11/16/2022, 02/12/2022, Additional history exists Influenza Vaccine (#1) 2024 , 02/28/2022, 02/26/2022, Additional history exists DTaP/Tdap/Td Vaccines (2 - Tdap) 05/27/2024 05/27/2014 Tobacco Screening 04/01/2025 04/01/2024 Hepatitis A Vaccines Completed 06/07/2016, 12/28/2015, 11/23/2015 Hepatitis B Vaccines Completed 06/07/2016, 12/28/2015, 11/23/2015 Pneumococcal Vaccine: 65+ Years Completed 06/07/2016, 11/23/2015 HIB Vaccines Aged Out No longer eligi ble based on patient's age to complete this topic HPV Vaccines Aged Out No longer eligi ble based on patient's age to complete this topic IPV Vaccines Aged Out No longer eligi ble based on patient's age to complete this topic Meningococcal Vaccine Aged Out No nakul mike eligible based on patient's age to complete this topic RSV under 20 months Aged Out No longe r eligible based on patient's age to complete this topic Rotavirus Vaccines Aged Out No longer eligible based on patient's age to complete this topic Procedures Procedure Name Priority Date/Time Associated Diagnosis Comments LIMITED ORAL EVALUATION - PROBLEM FOCUSED Routine 04/01/2024 2:15 PM EST PROPHYLAXIS - ADULT Routine 12/19/2022 3 :00 PM EDT BITEWINGS - 4 RADIOGRAPHIC IMAGES Routine 12/19/2022 3:00 PM EDT PERIODIC ORAL EVALUATION - ESTABLISHED PATIENT Routine 10/03/2022 2:00 PM EDT from Last 3 Months or Most Recently Relevant to Health Maintenance
--- OUTSIDE RECORDS SUMMARY | 2024-06-18 06:21 | XMS_ITS | Encounter Summary ---
Author Organization [employer] Address [address] [facility] [address] [place] [address] Care Team Providers Care High School Social Science Teacher Name Role Phone Unavailable Primary Care Provider Unavailabl e Encounter Details Date Type Department Care Team (Late st Contact Info) Description 06/20/2023 Abstract [facility] [address] [place] [address] Robin Pastor, ANEESH [address] [facility] [place] [address] Social History Tobacco Use Types Packs/Day Years [...]
--- OUTSIDE RECORDS SUMMARY | 2024-06-18 06:21 | XMS_ITS ---
Author Organization [facility] Address [address] [place] [address] Care Team Providers Care Milling Planer Operator Name Role Phone Thais Greenberg Primary Care Provider Unavaila Lc Samuel Unavailable [phone] Tatum MURRELL, Jamison Unavailable Unavailable REASON FOR VISIT barretts esophagus Encounters Encounter Location Date Provider Diagnosis [facility] [address] [place] [address] 10/30/2023 Lc Avalos PLAN OF TREATMENT No Information
--- OUTSIDE RECORDS SUMMARY | 2024-06-18 06:21 | XMS_ITS | Encounter Summary ---
Author Organization [employer] Address [address] [facility] 7t [place] [address] Care Team Providers Care Cathodic Protection Technician Name Role Phone Unavailable Primary Care Provider Unavailabl e Encounter Details Date Type Department Care Team (Late st Contact Info) Description 05/03/2023 Abstract [facility] [address] [place] [address] Robin Pastor, ANEESH [address] [facility] [place] [address] Social History Tobacco Use Types Packs/Day Years [...]
--- OUTSIDE RECORDS SUMMARY | 2024-06-18 06:21 | XMS_ITS ---
Author Organization [facility] Address [address] [place] [address] Care Team Providers Care Media Center Director School Name Role Phone Yari Thais Primary Care Provider UnavailLc Harrison Unavailable [phone] Jamison Winn MD Unavailable Unavailable ALLERGIES Allergen (clinical drug ingredient) Drug/Non Drug Allergy documented on EMR Reaction Allergy Type Onset Date Status sildenafil Sildenafil Unknown Drug Allergy Activ e lisinopril Lisinopril Unknown Drug Allergy Activ e baclofen Baclofen Unknown Drug Allergy Active REASON FOR VISIT 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 MEDICATIONS Medication SIG (Take, Route, Frequency, Duration) [...] 1 tab Oral for 14 days Active SOCIAL HISTORY Tobacco Use: Social History Observation [...] W/U Status Risk SNOMED Code Notes Problem Chronic GERD (K21.9) Active confirmed Gastroesophagea l reflux disease (392306620) 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 Hoffman esophag us (453607570) Problem Alcoholic cirrhosis of liver (K70.30) Active confirmed Alcoholic cirrh osis of liver (313614790) VITAL SIGNS BMI 25.25 kg/m2 07/10/2023 Blood pressure systolic 000 mm Hg 07/10/19 24 Blood pressure diastolic 00 mm Hg 024 Height 5 ft 9 in in 07/10/2023 Temperature 97.5 degrees Fahrenheit 07/10/19 24 Weight 171 lbs 07/10/2023 Encounters Encounter Location Date Provider Diagnosis [facility] [address] [place] [address] 07/10/2023 Lc Avalos Chronic GERD K21.9 ; Hoffman esophagus K22.70 and Alcoholic cirrhosis of liver K70.30 ASSESSMENTS Encounter Date Diagnosis Assessment Notes Treatment Notes Treatment Clinical Notes 07/10/2023 Chronic GERD (ICD-10 - K21.9) Continue daily Pantoprazole and the prn night time antacids. You can increase the Pantpraozle to twice a day, or just add a H2-mandy in the evening as well I don't think you need an upper endoscopy at this point at age 77 since there are no worrisome symptoms. Call if things worsen. 07/10/2023 Hoffman esophagus (ICD-10 - K22.70) 07/10/2023 Alcoholic cirrhosis of liver (ICD-10 - K70.30) PLAN OF TREATMENT Treatment Notes Assessment Notes Chronic GERD Continue daily Pantoprazole and the prn night time antacids. You can increase the Pantpraozle to twice a day, or just add a H2-mandy in the evening as well I don't think you need an upper endoscopy at this point at age 77 since there are no worrisome symptoms. Call if things worsen. Next Appt Details Follow Up: prn, Reason: Progress Notes * Examination Category Sub-Category Detail Notes General Examination GENERAL APPEARANCE: pleasant , well nourished, well developed, in no acute distress HEAD: EYES: sclera non-icteric EARS: NOSE: THROAT: NECK/THYROID: no cervical lymphade nopathy, neck supple HEART: S1, S2 normal CHEST: LUNGS: clear to auscultatio n bilaterally ABDOMEN: normal bowel sounds, no guarding or rigidity, no guarding or rigidity, no masses palpable, soft, nontender, nondistended NEUROLOGIC: alert and oriented SKIN: nonjaundiced, no spi amada angiomata EXTREMITIES: no edema, bilateral palmar erythema and Dupuytren's PERIPHERAL PULSES: BACK: BREASTS: MUSCULOSKELETAL: MALE GENITOURINARY: LYMPH NODES: RECTAL EXAM: FEMALE GENITOURINARY: ORAL CAVITY: mucosa moist
[2024-06-18 06:57] LABS: Anion Gap 12 (12-20); Blood Urea Nitrogen 17 mg/dL (9-16); Calcium 8.8 mg/dL (8.4-10.2); Carbon Dioxide 20 mmol/L (22-29); Chloride 112 mmol/L (96-108); Estimated Glomerular Filt Rate 45; Glucose Fasting 80 mg/dL (60-99); Potassium 4.2 mmol/L (3.3-5.1); Sodium 140 mmol/L (135-145)
== END 2024-06-18 06:17 | disposition home or self-care (01) ==
LOC: HO.HSH3N 06:16
PROVIDERS: Visit Provider Nurse Practitioner Acute Care
DX: R34 Anuria and oliguria (principal)
CPT/HCPCS: 36415; 80048

== ENCOUNTER 2024-07-01 18:37 | Outpatient (REF) | payer MEDICARE, SELFPAY ==
--- OUTSIDE RECORDS SUMMARY | 2024-07-01 18:39 | XMS_ITS | Clinical Summary ---
Author Organization [employer] Address [address] [facility] 7t [place] [address] Care Team Providers Care Pediatric Cardiologist Name Role Phone Unavailable Primary Care Provider [...] Description 04/01/2024 2:15 PM EST Office Visit [facility] [address] [place], [place] [id number] Robin Pastor DMD from Last 3 Months [...] Vaccines Completed 06/07/2016, 12/28/2015, 11/23/2015 Pneumococcal Vaccine: 50+ Years Completed 06/07/2016, 11/23/2015 HIB Vaccines Aged [...]
--- OUTSIDE RECORDS SUMMARY | 2024-07-01 18:39 | XMS_ITS | Encounter Summary ---
Author Organization [employer] Address [address] [facility] 7t [place] [address] Care Team Providers Care Layer Out Plate Glass Name Role Phone Unavailable Primary Care Provider Unavailabl e Encounter Details Date Type Department Care Team (Late st Contact Info) Description 06/20/2023 Abstract [facility] D[facility] [address] [place] [address] Robin Pastro, ANEESH [address] [facility] [place] [address] Social History Tobacco Use Types Packs/Day Years [...]
--- OUTSIDE RECORDS SUMMARY | 2024-07-01 18:39 | XMS_ITS | Encounter Summary ---
Author Organization [employer] Address [address] [facility] 7t [place] [address] Care Team Providers Care Medical Doctor Md/Medical Director Name Role Phone Unavailable Primary Care Provider Unavailabl e Encounter Details Date Type Department Care Team (Late st Contact Info) Description 06/20/2023 Abstract [facility] D[facility]AL [address] [place] [address] Robin Pastor, ANEESH [address] [place] [address] Social History Tobacco Use Types Packs/Day Years [...]
--- OUTSIDE RECORDS SUMMARY | 2024-07-01 18:39 | XMS_ITS | Encounter Summary ---
Author Organization [employer] Address [address] [facility] 7t [place] [address] Care Team Providers Care Systems Navigator Name Role Phone Unavailable Primary Care [...]
[2024-07-01 19:02] LABS: Appearance Urine Turbid; Color Urine Dark Yellow; Glucose Urine UA Negative (Negative); Leukocyte Esterase Urine Large (3+) (Negative); Nitrite Urine Negative (Negative); PH 5.5 (5.0-9.0); Specific Gravity - Urine 1.025 (1.005-1.025); UMIC TRIGGER UACC YES; Urine Blood Large (3+) (Negative); Urine Ketones Trace mg/dL (Negative); Urine Protein 300 (3+) mg/dL (Neg-Trace)
[2024-07-01 19:53] LABS: Bacteria Urine Trace (None Seen); Hyaline Casts Urine 0-2 /LPF (0-2); RBC Urine 0-2 /HPF (0-2); Squamous Epithelial Cell Urine 0-2 /HPF (0-2); UACC Culture Trigger YES; WBC Urine >50 /HPF (0-5)
== END 2024-07-01 18:38 | disposition home or self-care (01) ==
LOC: HO.HSH3N 18:37
PROVIDERS: Visit Provider Nurse Practitioner Acute Care
DX: R33.9 Retention of urine, unspecified (principal); F03.90 Unspecified dementia, unspecified severity, without behavioral disturbance, psychotic disturbance, mood disturbance, and anxiety
CPT/HCPCS: 81001; 81003; 87086

== ENCOUNTER 2024-07-07 10:25 | Outpatient (AMB) | payer OTHER, SELFPAY ==
--- NOTE | 2024-07-01 08:19 | A.OFFVIS_ITS ---
Intake Intake Visit Reasons: ER/ [place] follow up Allergies lisinopril [LISINOPRIL] Allergy (Mild, Verified 05/28/24 09:39) UNKNOWN baclofen [BACLOFEN] Allergy (Unknown, Verified 05/28/24 09:39) UNKNOWN shellfish derived [SHELLFISH DERIVED] Allergy (Unknown, Verified 05/28/24 09:39) UNKNOWN Medication List - Last Reconciled 07/01/24 by Bill Beasley MD acetaminophen 650 mg PO Q6H PRN allopurinol 50 mg PO DAILY alum-mag hydroxide-simeth 200-200-20 mg/5 mL (Mag-Al Plus) 30 mL PO TID PRN amlodipine 2.5 mg See Protocol PO DAILY 90 days aspirin 81 mg PO DAILY atorvastatin 40 mg PO BEDTIME 90 days calcium carbonate 500 mg PO TID PRN cholecalciferol (vitamin D3) 50 mcg PO DAILY clopidogrel 75 mg PO DAILY 90 days famotidine 20 mg PO DAILY lactase 3,000 units PO QID PRN loperamide 2 mg PO Q6H PRN loratadine 10 mg PO BEDTIME mirtazapine 30 mg PO DAILY multivitamin 1 tab PO DAILY nystatin 1 appl topical BID PRN ondansetron 4 mg PO Q6H PRN pantoprazole 40 mg PO BID polyethylene glycol 3350 17 grams PO DAILY PRN thiamine HCl (vitamin B1) 100 mg PO DAILY HPI HPI Comments History of Present Illness Details 07/01/24--78-year-old male with a PMH radi kelly prostatectomy, history of dementia. [facility]. was [facility] to [facility] on 05/28/24 as nursing staff at the veterans home felt that he had not been urinating recently. They did a bladder scan that showed a bladder volume of [address] attempted to [address] a urinary catheter but were unsuccessful and so he was sent to the emergency room. Farley placed by ED staff and a large volume of urine was drained from his bladder. UA on 05/28/24- +protein otherwise negative for infection; urine micro not sent on 05/28/24. On evaluation, afrley was removed at 6 AM, pt was incontinent of urine, voided small amount about 60 mL, cloudy urine, bladder scan PVR minimal. Plan Macrobid 100 mg bid for 7days. recommend send urine for c/s. Cont Tamsulosin, h/o radical prostatectomy, check PSA in 2 weeks. [facility] Medical History CKD (chronic kidney disease) New onset of congestive heart failure Diverticulitis Dementia Hoffman esophagus Malignant neoplasm of prostate Cirrhosis of liver Surgical History H/O radical prostatectomy Family History Father CAD (coronary artery disease) Social History Household Members: Other Housing: Jail Alcohol intake: former Patient Tobacco Use Status: Never used Tobacco Advance Directives Date on File: 12/22/21 service: Yes Current occupational status: retired Review of Systems Const All systems reviewed & are unremarkable except as noted in HPI and below Reports no additional complaints Eyes Reports no additional complaints ENT Reports no additional complaints Card Reports no additional complaints Resp Reports no additional complaints GI Reports no additional complaints Reports as per HPI Musc Reports no additional complaints Skin/Breast Reports system reviewed and no additional complaints, except as documented Neuro Reports no additional complaints Psych Reports no additional complaints Endo Reports no additional complaints Thong/Lymph Reports no additional complaints Aller/Immun Reports no additional complaints Physical Exam Const General: healthy appearing, no acute distress and well developed HEENT Head: Yes normocephalic and Yes atraumatic Eyes Conjunctivae: conjunctivae normal Neck Neck: Yes normal visual inspection Chest Chest palpation & inspection: normal inspection of the chest Resp Effort & Inspection: normal respiratory effort GI Inspection: Yes normal to inspection Palpation (GI): Soft to palpation Skin General skin exam: no rashes or lesions noted Psych Appearance: grossly normal Affect: normal affect Assessment & Plan Assessment & Plan (1) History of prostate cancer: Code(s): Z85.46 - Personal history of malignant neoplasm of prostate (2) Urinary retention: Code(s): R33.9 - Retention of urine, unspecified (3) Dysuria: Code(s): R30.0 - Dysuria (4) UTI symptoms: Code(s): R39.9 - Unspecified symptoms and signs involving the genitourinary system Plan Recommend Macrobid 100 mg bid for 7days. recommend send urine for c/s. Cont Tamsulosin, h/o radical prostatectomy, check PSA in 2 weeks. Orders: Orders AMB Post Void Residual by ultrasound Today R33.9 - Retention of urine, unspecified Patient Instructions: It is a privilege to be allowed the opportunity to participate in the urologic care of your patient. If you have any questions or concerns regarding treatment for the above conditions please do not hesitate to contact me. The office telephone contact is [phone]. This note is constructed in part using voice recognition software. While every effort has been made to ensure accuracy orthopedically impaired teacher errors may have been included. Yours sincerely, Bill Beasley MD Coding Level of Care Code 16172-Dmef Fac initial, high Diagnoses History of prostate cancer Z85.46 Urinary retention R33.9 Dysuria R30.0 UTI symptoms R39.9
--- OUTSIDE RECORDS SUMMARY | 2024-07-07 11:37 | XMS_ITS ---
Author Organization [facility] Address [address] [place] [address] Care Team Providers Care Inspector Rag Sorting Name Role Phone Thais Greenberg Primary Care Provider Unavaila Lc Samuel Unavailable [phone] Tatum MURRELL, Jamison Unavailable Unavailable REASON FOR VISIT barretts esophagus Encounters Encounter Location Date Provider Diagnosis [facility] [address] [place] [address] 10/30/2023 Lc Avalos PLAN OF TREATMENT No Information
--- OUTSIDE RECORDS SUMMARY | 2024-07-07 11:37 | XMS_ITS | Encounter Summary ---
Author Organization [employer] Address [address] [facility] 7t [place] [address] Care Team Providers Care Solar Installation Manager Name Role Phone Unavailable Primary Care Provider Unavailabl e Encounter Details Date Type Department Care Team (Late st Contact Info) Description 06/20/2023 Abstract [facility] [address] [place] [address] Robin Pastor, ANEESH [address] [facility] [place] [address] Social History Tobacco Use Types Packs/Day Years [...]
--- OUTSIDE RECORDS SUMMARY | 2024-07-07 11:37 | XMS_ITS | Encounter Summary ---
Author Organization [employer] Address [address] [facility] 7t [place] [address] Care Team Providers Care Hand I Cutter Name Role Phone Unavailable Primary Care Provider Unavailabl e Encounter Details Date Type Department Care Team (Late st Contact Info) Description 05/03/2023 Abstract [facility] [address] [place] [address] Robin Pastor, ANEESH [address] [facility] [place] [address] Social History Tobacco Use Types Packs/Day Years [...]
--- OUTSIDE RECORDS SUMMARY | 2024-07-07 11:38 | XMS_ITS | Encounter Summary ---
Author Organization [employer] Address [address] [facility] 7t [place] [address] Care Team Providers Care Vp Name Role Phone Unavailable Primary Care Provider Unavailabl e Encounter Details Date Type Department Care Team (Late st Contact Info) Description 06/20/2023 Abstract [facility] D[facility] [address] [place] [address] Robin Pastor, ANEESH [address] [facility] [place] [address] Social History Tobacco Use Types Packs/Day Years [...]
--- OUTSIDE RECORDS SUMMARY | 2024-07-07 11:38 | XMS_ITS | Encounter Summary ---
Author Organization [employer] Address [address] [facility] 7t [place] [address] Care Team Providers Care Dispatcher Ship Pilot Name Role Phone Unavailable Primary Care Provider [...]
--- OUTSIDE RECORDS SUMMARY | 2024-07-07 11:38 | XMS_ITS ---
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
--- OUTSIDE RECORDS SUMMARY | 2024-07-07 11:38 | XMS_ITS | Patient Health Record ---
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 Hoffman esophag us (300097863) Problem Alcoholic cirrhosis of liver (K70.30) Active confirmed Alcoholic cirrh osis of liver (172129934) VITAL SIGNS Temperature 97.5 degrees Fahrenheit 07/10/2023 Blood pressure diastolic 00 mm Hg 07/10/2023 Height 5 ft 9 in in 07/10/2023 Blood pressure systolic 000 mm Hg 07/10/2023 Weight 171 lbs 07/10/2023 BMI 25.25 kg/m2 07/10/2023 Encounters Encounter Location Date Provider Diagnosis [facility] [address] [place] [address] 10/30/2023 Lc Avalos [facility] [address] [place] [address] 07/10/2023 Lc Avalos Chronic GERD K21.9 ; [...] Start Date Coverage End Date MEDICARE OF [facility] [address] [place] [address] [id number] MARIANNE DAVILA Self - patient is the insured MEDICAL (GENERAL) HISTORY Medical History History ICD Code Coronary artery disease with previous [place] GERD was reported Hoffman's esophagus, although I [...] Surgery Date(Month/Year) [facility]
--- OUTSIDE RECORDS SUMMARY | 2024-07-07 11:38 | XMS_ITS | Clinical Summary ---
Author Organization [employer] Address [address] [facility] 7t [place] [address] Care Team Providers Care Metalizing Machine Operator Automatic Name Role Phone Unavailable Primary Care Provider [...] traMADol (Ultram) 50 MG tablet 12/04/2022 Active Social History Tobacco Use Types Packs/Day Years [...] Procedure Name Priority Date/Time Associated Diagnosis Comments PROPHYLAXIS - ADULT Routine 12/19/2022 3 :00 PM EDT BITEWINGS - 4 RADIOGRAPHIC IMAGES Routine 12/19/2022 3:00 PM EDT PERIODIC ORAL EVALUATION - ESTABLISHED PATIENT Routine 10/03/2022 2:00 PM EDT from Last 3 Months or Most Recently Relevant to Health Maintenance
== END 2024-07-07 10:26 | disposition home or self-care (01) ==
LOC: HO.HUSV 10:25
PROVIDERS: Visit Provider Urology
DX: R33.9 Retention of urine, unspecified (principal); R30.0 Dysuria; R39.9 Unspecified symptoms and signs involving the genitourinary system; Z85.46 Personal history of malignant neoplasm of prostate
CPT/HCPCS: 99306

== ENCOUNTER 2024-07-08 05:42 | Outpatient (REF) | payer MEDICARE, SELFPAY ==
--- OUTSIDE RECORDS SUMMARY | 2024-07-08 05:45 | XMS_ITS | Clinical Summary ---
Author Organization [employer] Address [address] [facility] 7t [place] [address] Care Team Providers Care Doper Name Role Phone Unavailable Primary Care Provider [...]
--- OUTSIDE RECORDS SUMMARY | 2024-07-08 05:45 | XMS_ITS | Encounter Summary ---
Author Organization [employer] Address [address] [facility] 7t [place] [address] Care Team Providers Care Chalk Tester Name Role Phone Unavailable Primary Care Provider [...]
--- OUTSIDE RECORDS SUMMARY | 2024-07-08 05:45 | XMS_ITS | Encounter Summary ---
Author Organization [employer] Address [address] [facility] 7t [place] [address] Care Team Providers Care Sap Portal Developer Name Role Phone Unavailable Primary Care Provider Unavailabl e Encounter Details Date Type Department Care Team (Late st Contact Info) Description 06/20/2023 Abstract [facility] [address] [place] [address] Robin Pastor, ANEESH [address] [facility] [place] [address] Social History Tobacco Use Types Packs/Day Years [...]
--- OUTSIDE RECORDS SUMMARY | 2024-07-08 05:45 | XMS_ITS | Encounter Summary ---
Author Organization [employer] Address [address] [facility] 7t [place] [address] Care Team Providers Care Orthotics Prosthetics Assistant Name Role Phone Unavailable Primary Care Provider Unavailabl e Encounter Details Date Type Department Care Team (Late st Contact Info) Description 06/20/2023 Abstract [facility] D[facility] [address] [place] [address] Robin Pastor, ANEESH [address] [facility] [place] [address] Social History Tobacco Use Types Packs/Day Years [...]
--- OUTSIDE RECORDS SUMMARY | 2024-07-08 05:45 | XMS_ITS | Encounter Summary ---
Author Organization [employer] Address [address] [facility] 7t [place] [address] Care Team Providers Care Title Inspector Name Role Phone Unavailable Primary Care Provider Unavailabl e Encounter Details Date Type Department Care Team (Late st Contact Info) Description 05/03/2023 Abstract [facility] [address] [place] [address] Robin Pastor, ANEESH [address] [facility] [place] [address] Social History Tobacco Use Types Packs/Day Years [...]
--- OUTSIDE RECORDS SUMMARY | 2024-07-08 05:45 | XMS_ITS | Patient Health Record ---
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 Hoffman esophag us (859573520) Problem Alcoholic cirrhosis of liver (K70.30) Active confirmed Alcoholic cirrh osis of liver (714559156) VITAL SIGNS Temperature 97.5 degrees Fahrenheit 07/10/2023 Blood pressure diastolic 00 mm Hg 07/10/2023 Height 5 ft 9 in in 07/10/2023 Blood pressure systolic 000 mm Hg 07/10/2023 Weight 171 lbs 07/10/2023 BMI 25.25 kg/m2 07/10/2023 Encounters Encounter Location Date Provider Diagnosis [facility] [address] [place] [address] 10/30/2023 Lc Avalos [facility] [address] [place] [address] 07/10/2023 Lc Avalos Chronic GERD K21.9 ; [...] Start Date Coverage End Date MEDICARE OF [facility] [address] [place] [address] [id number] MARIANNE DAVILA Self - patient is the insured MEDICAL (GENERAL) HISTORY Medical History History ICD Code Coronary artery disease with previous [place] GERD was reported Hoffman's esophagus, although I [...] Surgery Date(Month/Year) [facility]
--- OUTSIDE RECORDS SUMMARY | 2024-07-08 05:45 | XMS_ITS ---
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
[2024-07-08 07:23] LABS: Appearance Urine Turbid; Color Urine Yellow; Glucose Urine UA Negative (Negative); Leukocyte Esterase Urine Large (3+) (Negative); Nitrite Urine Negative (Negative); PH 5.5 (5.0-9.0); Specific Gravity - Urine 1.015 (1.005-1.025); UMIC TRIGGER UA YES; Urine Blood Small (1+) (Negative); Urine Ketones Negative (Negative); Urine Protein Negative (Neg-Trace)
[2024-07-08 07:35] LABS: Bacteria Urine None Seen (None Seen); Hyaline Casts Urine 0-2 /LPF (0-2); RBC Urine 0-2 /HPF (0-2); Squamous Epithelial Cell Urine 0-2 /HPF (0-2); WBC Urine >50 /HPF (0-5)
== END 2024-07-08 05:43 | disposition home or self-care (01) ==
LOC: HO.HSH3N 05:42
PROVIDERS: Visit Provider Nurse Practitioner Acute Care
DX: R39.15 Urgency of urination (principal)
CPT/HCPCS: 81001; 87086

== ENCOUNTER 2024-07-15 06:19 | Outpatient (REF) | payer MEDICARE, SELFPAY ==
--- OUTSIDE RECORDS SUMMARY | 2024-07-15 06:23 | XMS_ITS | Encounter Summary ---
Author Organization [employer] Address [address] [facility] 7t [place] [address] Care Team Providers Care Panel Builder Name Role Phone Unavailable Primary Care Provider Unavailabl e Encounter Details Date Type Department Care Team (Late st Contact Info) Description 06/20/2023 Abstract [facility] [address] [place] [address] Robin Pastor, ANEESH [address] [facility] [place] [address] Social History Tobacco Use Types Packs/Day Years [...]
--- OUTSIDE RECORDS SUMMARY | 2024-07-15 06:23 | XMS_ITS | Encounter Summary ---
Author Organization [employer] Address [address] [facility] 7t [place] [address] Care Team Providers Care Telephone Station Repairer Name Role Phone Unavailable Primary Care Provider Unavailabl e Encounter Details Date Type Department Care Team (Late st Contact Info) Description 06/20/2023 Abstract [facility] [address] [place] [address] Robin Pastor, ANEESH 230 [facility] [place] [address] Social History Tobacco Use Types Packs/Day Years [...]
--- OUTSIDE RECORDS SUMMARY | 2024-07-15 06:23 | XMS_ITS | Clinical Summary ---
Author Organization [employer] Address [address] [facility] [address]t [place] [address] Care Team Providers Care Orthotic Aide Name Role Phone Unavailable Primary Care Provider [...]
--- OUTSIDE RECORDS SUMMARY | 2024-07-15 06:23 | XMS_ITS | Encounter Summary ---
Author Organization [employer] Address [address] [facility] 7t [place] [address] Care Team Providers Care Cryptographic Center Specialist Name Role Phone Unavailable Primary Care Provider Unavailabl e Encounter Details Date Type Department Care Team (Late st Contact Info) Description 05/03/2023 Abstract [facility] DENTAL [address] [place] [address] Robin Pastor, ANEESH [address] [facility] [place] [address] Social History Tobacco Use Types Packs/Day Years [...]
--- OUTSIDE RECORDS SUMMARY | 2024-07-15 06:23 | XMS_ITS ---
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
--- OUTSIDE RECORDS SUMMARY | 2024-07-15 06:23 | XMS_ITS | Encounter Summary ---
Author Organization [employer] Address [address] [facility] 7t [place] [address] Care Team Providers Care Oil And Gas Superintendent Name Role Phone Unavailable Primary Care Provider [...]
--- OUTSIDE RECORDS SUMMARY | 2024-07-15 06:23 | XMS_ITS | Patient Health Record ---
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 Hoffman esophag us (233577806) Problem Alcoholic cirrhosis of liver (K70.30) Active confirmed Alcoholic cirrh osis of liver (645281484) Encounters Encounter Location Date Provider Diagnosis [facility] [address] [place] [address] 10/30/2023 Lc Avalos PLAN OF TREATMENT No Information Insurance Providers Payer Name Payer Address Payer Phone Subscriber Number Group Number Insured Name Patient Relationship to Insured Coverage Start Date Coverage End Date MEDICARE OF [place] [address] [place] [address] [id number] MARIANNE DAVILA Self - patient is the insured MEDICAL (GENERAL) HISTORY Medical History History ICD Code Coronary artery disease with previous [place] GERD was reported Hoffman's esophagus, although I [...]
[2024-07-15 06:58] LABS: Alanine Aminotransferase 17 U/L (0-40); Albumin Level 3.3 g/dL (3.5-5.0); Alkaline Phosphatase 93 U/L (39-117); Anion Gap 11 (12-20); Aspartate Amino Transferase 29 U/L (5-37); Bilirubin Direct 0.1 mg/dL (0.0-0.5); Bilirubin Total 0.5 mg/dL (0.0-1.0); Blood Urea Nitrogen 20 mg/dL (9-16); Calcium 8.5 mg/dL (8.4-10.2); Carbon Dioxide 21 mmol/L (22-29); Chloride 112 mmol/L (96-108); Estimated Glomerular Filt Rate 51; Glucose Random 94 mg/dL (60-115); Sodium 140 mmol/L (135-145); Total Protein 6.2 g/dL (6.5-8.0)
[2024-07-15 07:12] LABS: Prostate Specific Antigen < 0.10 ng/mL (<0.05-4.0)
== END 2024-07-15 06:20 | disposition home or self-care (01) ==
LOC: HO.HSH3N 06:19
PROVIDERS: Visit Provider Nurse Practitioner Acute Care
DX: N18.9 Chronic kidney disease, unspecified (principal); E78.5 Hyperlipidemia, unspecified; Z12.5 Encounter for screening for malignant neoplasm of prostate
CPT/HCPCS: 36415; 80048; 80076; 84153

== ENCOUNTER 2024-07-29 14:05 | Outpatient (AMB) | payer MEDICARE, SELFPAY ==
--- NOTE | 2024-07-29 14:06 | HO.VETSHOME ---
Intake Intake Visit Reasons: retention/ PSA follow up Intake Note: Patient seen at [facility] today for retention and psa follow up Allergies lisinopril [LISINOPRIL] Allergy (Mild, Verified 07/29/24 16:13) UNKNOWN baclofen [BACLOFEN] Allergy (Unknown, Verified 07/29/24 16:13) UNKNOWN shellfish derived [SHELLFISH DERIVED] Allergy (Unknown, Verified 07/29/24 16:13) UNKNOWN Medication List - Last Reconciled 07/29/24 by WOLFGANG Trevizo-TAYE acetaminophen 650 mg PO Q6H PRN allopurinol 50 mg PO DAILY alum-mag hydroxide-simeth 200-200-20 mg/5 mL (Mag-Al Plus) 30 mL PO TID PRN amlodipine 2.5 mg See Protocol PO DAILY 90 days aspirin 81 mg PO DAILY atorvastatin 40 mg PO BEDTIME 90 days calcium carbonate 500 mg PO TID PRN cholecalciferol (vitamin D3) 50 mcg PO DAILY clopidogrel 75 mg PO DAILY 90 days famotidine 20 mg PO DAILY lactase 3,000 units PO QID PRN loperamide 2 mg PO Q6H PRN loratadine 10 mg PO BEDTIME mirtazapine 30 mg PO DAILY multivitamin 1 tab PO DAILY ondansetron 4 mg PO Q6H PRN pantoprazole 40 mg PO BID polyethylene glycol 3350 17 grams PO DAILY PRN sertraline 50 mg PO DAILY tamsulosin (Flomax) 0.4 mg PO DAILY thiamine HCl (vitamin B1) 100 mg PO DAILY HPI HPI Comments History of Present Illness Details Kvng is a very pleasantly confused 78-year-old male patient who was being followed up on today at the [facility]. He has a past medical history of chronic kidney disease congestive heart failure, diverticulitis, dementia, Hoffman's esophagus, prostate cancer, and cirrhosis of the liver. Of note, patient was last seen approximately 1 month ago by Urology Dr. Beasley at which time recommendations were made for PSA for surveillance monitoring as patient with a past medical history of radical prostatectomy. These results were communicated with the patient and staff today. PSA 07/21 <0.10. In discussion with the patient today he denies having had any bothersome urinary issues or concerns. He does have a history of urinary retention earlier this year however has since had a voiding trial and has been voiding independently. Urine cultures have been obtained and noted to be with mixed barron however no treatment was ordered as patient had not been having any UTI like symptoms. He remains on 0.4 mg of Flomax. Nursing denies any bothersome urinary issues or concerns. Patient reports be happy with current voiding parameters. We discussed continuation of surveillance monitoring regarding previous history of prostate cancer as well as most recent episode of urinary retention. All questions were answered. He otherwise offers no other issues or concerns at this time. [facility] Medical History (Reviewed 07/29/24 @ 16:15 by Ana Maria Lopez [facility]) CKD (chronic kidney disease) New onset of congestive heart failure Diverticulitis Dementia Hoffman esophagus Malignant neoplasm of prostate Cirrhosis of liver Surgical History H/O radical prostatectomy Family History Father CAD (coronary artery disease) Social History Household Members: Other Housing: [facility] Alcohol intake: former Patient Tobacco Use Status: Never used Tobacco Advance Directives Date on File: 12/22/21 service: Yes Current occupational status: retired Review of Systems Const Unobtainable due to mental condition Physical Exam Const General: cooperative, healthy appearing, comfortable, no acute distress, well developed, alert and awake Orientation/consciousness: oriented to person Limitations: wheelchair HEENT Head: Yes normal to inspection Eyes General: appearance normal, both eyes and all related structures Neck Neck: Yes normal visual inspection Chest Chest palpation & inspection: normal inspection of the chest Resp Effort & Inspection: normal respiratory effort and able to speak in complete sentences Cardio Rate: regular rate GI Inspection: Yes normal to inspection Skin General skin exam: no rashes or lesions noted Neuro General: oriented to person Extrem General: Yes normal to inspection Psych Appearance: well kempt Speech and movement: Clear speech present Attitude: cooperative Thought content: Normal thought content present Insight: Limited insight present (Psych) Judgement: Limited judgement present (Psych) Assessment & Plan Assessment & Plan (1) History of prostate cancer: Code(s): Z85.46 - Personal history of malignant neoplasm of prostate (2) Urinary retention: Code(s): R33.9 - Retention of urine, unspecified Plan Recent medical records were reviewed Recent PSA results reviewed with the patient today and nursing; as noted above. Patient currently denies any bothersome urinary issues. He reports be happy with current voiding parameters. Will continue with surveillance monitoring of urinary retention as well as history of prostate cancer. Continue Flomax as prescribed. Follow-up in 6 months with [facility]; or sooner with any issues, concerns, and or questions. Patient Instructions: The patient had an opportunity to ask questions regarding the treatment plan. All questions were answered. Physical exam, labs, and imaging were discussed and reviewed in detail. As well as risks, benefits, and discussion of treatment choices. No major barriers to understanding were identified. The patient expressed understanding and agreement with the above treatment plan. The patient was made aware they should contact our office by phone for worsening of their current condition, the appearance of new symptoms, or with any questions or concerns. Compliance is encouraged with any medications and follow up testing that is ordered. It is a privilege to be allowed the opportunity to participate in? your urological care.? Again, if you have any questions or concerns If you have any questions or concerns please do not hesitate to contact me. The office is [phone]. This note is constructed using voice recognition software. While every effort has been made to ensure accuracy coat presser errors may have been included. Yours sincerely, VICTOR HUGO Trevizo Coding Level of Care Code 24739-Awuo Fac sub, low Diagnoses History of prostate cancer Z85.46 Urinary retention R33.9
--- OUTSIDE RECORDS SUMMARY | 2024-07-29 16:56 | XMS_ITS | Patient Health Record ---
Author Organization [facility] Address [address] [place] [address] Care Team Providers Care Foot Setter Name Role Phone VikasstaciaThais Primary Care Provider UnavailLc Harrison Unavailable [phone] Tatum MURRELL, Jamison Unavailable Unavailable Allergies Allergen (clinical drug ingredient) Drug/Non Drug Allergy documented on EMR Reaction Allergy Type Onset Date Status sildenafil Sildenafil Unknown Drug Allergy Activ e lisinopril Lisinopril Unknown Drug Allergy Activ e baclofen Baclofen Unknown Drug Allergy Active Reason For Referral No Information Medications Medication SIG (Take, Route, Frequency, Duration) Notes [...] 1 tab Oral for 14 days Active Immunizations Vaccine Route Administration Date Status Comme nts Influenza Unknown 02/12/2023 Administered Social History Tobacco Use: Social History Observation Description Date Details (start date - stop date) Never Smoker NA - NA Tobacco Use/Smoking Question Answer Notes Patient is a nonsmoker Alcohol Screen Question Answer Notes Did you have a drink containing alcohol in the p ast year? 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 Problem Gastroesophageal reflux disease (657149338) Chronic GERD (K21.9) Active confirmed Plan Of Treatment No Information Insurance Providers Payer Name Payer Address Payer Phone Subscriber Number Group Number Insured Name Patient Relationship to Insured Coverage Start Date Coverage End Date MEDICARE OF [employer] [address] [place] [address] [id number] MARIANNE DAVILA Self - patient is the insured Medical (General) History Medical History History ICD Code Coronary artery disease with previous CT GERD was reported Hoffman's esophagus, although I don't have any records of previous endoscopies Alcohol-induced cirrhosis wi sobriety since about 2019. He has not [...]
--- OUTSIDE RECORDS SUMMARY | 2024-07-29 16:56 | XMS_ITS | Encounter Summary ---
Author Organization [employer] Address [address] [facility] [address] [place] [address] Care Team Providers Care Flight Teacher Name Role Phone Unavailable Primary Care Provider Unavailabl e Encounter Details Date Type Department Care Team (Late st Contact Info) Description 05/03/2023 Abstract [facility] DENTAL [address] [place] [address] Robin Pastor, ANEESH [address] [facility] [address] Social History Tobacco Use Types Packs/Day Years [...]
--- OUTSIDE RECORDS SUMMARY | 2024-07-29 16:56 | XMS_ITS | Clinical Summary ---
Author Organization [employer] Address [address] [facility] 7t [place] [address] Care Team Providers Care Loader Helper Sorting Yard Name Role Phone Unavailable Primary Care Provider [...]
--- OUTSIDE RECORDS SUMMARY | 2024-07-29 16:56 | XMS_ITS | Encounter Summary ---
Author Organization [employer] Address [address] [facility] [address] [place] [address] Care Team Providers Care Yarn Worker Name Role Phone Unavailable Primary Care Provider [...]
--- OUTSIDE RECORDS SUMMARY | 2024-07-29 16:56 | XMS_ITS | Encounter Summary ---
Author Organization [employer] Address [address] [facility] 7t [place] [address] Care Team Providers Care Hide Worker Name Role Phone Unavailable Primary Care Provider Unavailabl e Encounter Details Date Type Department Care Team (Late st Contact Info) Description 06/20/2023 Abstract [facility] DENTAL [address] [place] [address] Robin Pastor, ANEESH [address] [facility] [place] [address] Social History Tobacco Use Types Packs/Day Years [...]
--- OUTSIDE RECORDS SUMMARY | 2024-07-29 16:56 | XMS_ITS | Encounter Summary ---
Author Organization [employer] Address [address] [facility] [address] [place] [address] Care Team Providers Care Assistant Paralegal Name Role Phone Unavailable Primary Care Provider Unavailabl e Encounter Details Date Type Department Care Team (Late st Contact Info) Description 06/20/2023 Abstract [facility] DENTAL [address] [place] [address] Robin Pastor, ANEESH [address] [facility] [place] [address] Social History Tobacco Use Types Packs/Day Years [...]
--- OUTSIDE RECORDS SUMMARY | 2024-07-29 16:56 | XMS_ITS ---
Author Organization [facility] Address [address] [place] [address] Care Team Providers Care Rolling Down Machine Operator Name Role Phone Yari Thais Primary Care Provider Unavaila Lc Samuel Unavailable [phone] Jamison Winn MD Unavailable Unavailable Allergies Allergen (clinical drug ingredient) Drug/Non Drug Allergy documented on EMR Reaction Allergy Type Onset Date Status sildenafil Sildenafil Unknown Drug Allergy Activ e lisinopril Lisinopril Unknown Drug Allergy Activ e baclofen Baclofen Unknown Drug Allergy Active REASON FOR VISIT 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 Medications Medication SIG (Take, Route, Frequency, Duration) [...] 1 tab Oral for 14 days Active Social History Tobacco Use: Social History Observation [...] Problem Status W/U Status Risk Notes Problem Gastroesophageal reflux disease (988223875) Chronic GERD (K21.9) Active confirmed 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 Problem Alcoholic cirrhosis of liver (998724547) Alcoholic cirrhosis of liver (K70.30) Active confirmed Vital Signs Temperature 97.5 degrees Fahrenheit 07/10/19 24 Blood pressure systolic 000 mm Hg 07/10/19 24 Blood pressure diastolic 00 mm Hg 024 Height 5 ft 9 in in 07/10/2023 Weight 171 lbs 07/10/2023 BMI 25.25 kg/m2 07/10/2023 Encounters Encounter Location Date Provider Diagnosis [facility] [address] [place] [address] 07/10/2023 Lc Avalos Chronic GERD K21.9 ; Hoffman esophagus K22.70 and Alcoholic cirrhosis of liver K70.30 Assessments Encounter Date Diagnosis (ICD Code) Assessment Notes Treatment Notes Treatment Clinical Notes Section Notes 07/10/2023 Chronic GERD (ICD-10 - K21.9) Continue daily Pantoprazole and the prn night time antacids. You can increase the Pantpraozle to twice a day, or just add a H2-mandy in the evening as well I don't think you need an upper endoscopy at this point at age 77 since there are no worrisome symptoms. Call if things worsen. Overall, Clifford appears quite well considering his age and medical issues, including that of cirrhosis. In regard to his reflux this seems to be fairly stable on a daily PPI in the morning. He is not having any worrisome symptoms such as dysphagia, anorexia, early satiety, or weight loss to suggest the need for endoscopy at this age. Even though he may have Hoffman's esophagus I would not recommend a surveillance endoscopy given his age and comorbidities. In regard to the intermittent symptoms of heartburn in the evening I recommend continuing p.r.n. antacids or H2 blockers. However, if these episodes increasing frequency then the H2 mandy can be used as a nightly medication or the PPI can be changed to b.i.d.. In regard to his underlying alcohol induced cirrhosis this appears to be quite well compensated at the present time given his appearance and laboratories from last fall. His imaging studies from 2021 were not worrisome and I would not recommend any further surveillance imaging studies of his liver at this time given his age of almost 78. His best thing for him is to continue to avoid alcohol completely and be sure to avoid any hepatotoxic medications. He should also avoid any aspirin or NSAIDs given the potential for some underlying portal gastropathy and/or varices in regard to the portal hypertension. If things remained stable he will see me on a p.r.n. basis. Clifford was comfortable with this plan. Thank you again for allowing me to have participated in Clifford's care. Please do not hesitate to contact me if I can be of any further assistance in the future. 07/10/2023 Hoffman esophagus (ICD-10 - K22.70) Overall, Clifford appears quite well considering his age and medical issues, including that of cirrhosis. In regard to his reflux this seems to be fairly stable on a daily PPI in the morning. He is not having any worrisome symptoms such as dysphagia, anorexia, early satiety, or weight loss to suggest the need for endoscopy at this age. Even though he may have Hoffman's esophagus I would not recommend a surveillance endoscopy given his age and comorbidities. In regard to the intermittent symptoms of heartburn in the evening I recommend continuing p.r.n. antacids or H2 blockers. However, if these episodes increasing frequency then the H2 mandy can be used as a nightly medication or the PPI can be changed to b.i.d.. In regard to his underlying alcohol induced cirrhosis this appears to be quite well compensated at the present time given his appearance and laboratories from last fall. His imaging studies from 2021 were not worrisome and I would not recommend any further surveillance imaging studies of his liver at this time given his age of almost 78. His best thing for him is to continue to avoid alcohol completely and be sure to avoid any hepatotoxic medications. He should also avoid any aspirin or NSAIDs given the potential for some underlying portal gastropathy and/or varices in regard to the portal hypertension. If things remained stable he will see me on a p.r.n. basis. Clifford was comfortable with this plan. Thank you again for allowing me to have participated in Clifford's care. Please do not hesitate to contact me if I can be of any further assistance in the future. 07/10/2023 Alcoholic cirrhosis of liver (ICD-10 - K70.30) Overall, Clifford appears quite well considering his age and medical issues, including that of cirrhosis. In regard to his reflux this seems to be fairly stable on a daily PPI in the morning. He is not having any worrisome symptoms such as dysphagia, anorexia, early satiety, or weight loss to suggest the need for endoscopy at this age. Even though he may have Hoffman's esophagus I would not recommend a surveillance endoscopy given his age and comorbidities. In regard to the intermittent symptoms of heartburn in the evening I recommend continuing p.r.n. antacids or H2 blockers. However, if these episodes increasing frequency then the H2 mandy can be used as a nightly medication or the PPI can be changed to b.i.d.. In regard to his underlying alcohol induced cirrhosis this appears to be quite well compensated at the present time given his appearance and laboratories from last fall. His imaging studies from 2021 were not worrisome and I would not recommend any further surveillance imaging studies of his liver at this time given his age of almost 78. His best thing for him is to continue to avoid alcohol completely and be sure to avoid any hepatotoxic medications. He should also avoid any aspirin or NSAIDs given the potential for some underlying portal gastropathy and/or varices in regard to the portal hypertension. If things remained stable he will see me on a p.r.n. basis. Clifford was comfortable with this plan. Thank you again for allowing me to have participated in Clifford's care. Please do not hesitate to contact me if I can be of any further assistance in the future. Plan Of Treatment Treatment Notes Assessment Notes Chronic GERD Continue [...] Follow Up: prn, Reason: Progress Notes * CLIFFORD DAVILADOB: [birth year] (77 yo M)Acc No.[id number]:07/10/2023 Progress Notes Patient:?CLIFFORD DAVILA Provider:?Lc Avalos MD :1945???Age:77 Y???Sex:Male Vicente e:07/10/2023 Address:[facility], [address] [place] [address] Pcp:Thais Greenberg Subjective: * Chief Complaints: * ???Patient presents today fo r barretts esophagus * HPI: ???incontinence:? I saw Clifford in followup today in regard to his underlying history of gastroesophageal reflux and reported Hoffman's esophagus, as well as gallstones. He was accompanied by Ny, one of his caregivers from the [facility]. ?I met Clifford in the summer when he was hospitalized for gallstones and cholecystitis. This was treated with antibiotics as Dr. Moreira felt the case was mild and felt that Clifford was a high surgical risk. He did improve. MRCP was negative for any sign of choledocholithiasis or biliary disease. He does have known cirrhosis related to previous alcohol abuse, but has not had any complications such as variceal bleeding or ascites as far as I know. ?He is on chronic pantoprazole for his heartburn and reflux symptoms. He carries a diagnosis of Hoffman's esophagus although don't have any records in that regard. He describes at the pantoprazole works well for him during the day but in the evening before bedtime he will tend to have some heartburn intermittently. He takes either p.r.n. famotidine or a chewable antacid with good relief during those occasions. He reports that this does not happen every night. He enjoys a good appetite and denies any dysphagia, early satiety, nausea, no vomiting. He denies any abdominal pain, jaundice, nor any weight loss. He reports his bowel movements have been regular and there's been no sign of any melena nor hematochezia. ?He does not smoke and has been abstinent from alcohol for about 3 or 4 years now by his history. ?Laboratories in the fall of 2022 revealed a normal liver profile and a hemoglobin of 12.2 with MCV of 83. His platelets were borderline at 149,000. * ROS:?General/Constitutional:?Change in appetite?denies.?Chills?denies.?Fatigue?denies.?Ophthalmologic:?Comments?all negative.?ENT:?Comments?all negative.?Respiratory:?hemoptysis?denies.?Cough?denies.?Cardiovascular:?Chest pain?denies.?Orthopnea?denies.?Gastrointestinal:?Comments?See HPI for details.?Genitourinary:?Hematuria?denies.?Dysuria?denies.?Musculoskeletal:?Painful joints?denies.?Weakness?denies.?Skin:?Itching?denies.?Rash?denies.?Neurologic:?Headache?denies.?Seizures?denies.?Psychiatric:?Comments?all negative.? * Medical History:? * Surgical History:?Prostatect cristina at [facility] * Hospitalization/Major Diagno stic Procedure:?No Hospitalization History. * Family History:?Father: dece ased.?Mother: .? No family history of colon cancer. * Social History:?Tobacco Use:?Tobacco Use/Smoking?Patient is a?nonsmoker.?Drugs/Alcohol:?Alcohol Screen?Did you have a drink containing alcohol in the past year??No,?Points?0,?Interpretation?Negative.?Miscellaneous:?Marital status: single. Occupation: retired. ???Nonsmoker; recovering alcoholic x 3-4 years. * Medications:?TakingMirtazapi ne 15 MG Tablet 1 tablet at bedtime Orally Once a dayFolic Acid 1 MG Tablet 1 tablet Orally Once a dayPantoprazole Sodium 40 MG Tablet Delayed Release 1 tablet Orally Once a dayMetoprolol Succinate ER 25 MG Tablet Extended Release 24 Hour 1 tablet Orally Once a dayoxyCODONE HCl 5 MG Tablet 1 tablet as needed Orally every 6 hrsibuprofen 1 tab Oral Diphenhydramine 1 tab Oral Medication List reviewed and reconciled with the patientTaking Mirtazapine 15 MG Tablet 1 tablet at bedtime Orally Once a dayTaking Folic Acid 1 MG Tablet 1 tablet Orally Once a dayTaking Pantoprazole Sodium 40 MG Tablet Delayed Release 1 tablet Orally Once a dayTaking Metoprolol Succinate ER 25 MG Tablet Extended Release 24 Hour 1 tablet Orally Once a dayTaking oxyCODONE HCl 5 MG Tablet 1 tablet as needed Orally every 6 hrsTaking ibuprofen 1 tab Oral Taking Diphenhydramine 1 tab Oral Medication List reviewed and reconciled with the patient * Allergies:?LisinoprilBaclofe nSildenafilyes[Allergies Verified] Objective: * Vitals:?Wt: 171 lbs, Ht: 5 f t 9 in, BMI:25.25 Index, BP: 000/00 mm Hg, Temp: 97.5. * Examination: ???General Examination: ?GENERAL APPEARANCE:?pleasant, well nourished, well developed, in no acute distress.?EYES:?sclera non-icteric.?ORAL CAVITY:?mucosa moist.?NECK/THYROID:?no cervical lymphadenopathy, neck supple.?SKIN:?nonjaundiced, no spider angiomata.?HEART:?S1, S2 normal.?LUNGS:?clear to auscultation bilaterally.?ABDOMEN:?normal bowel sounds, no guarding or rigidity, no guarding or rigidity, no masses palpable, soft, nontender, nondistended.?EXTREMITIES:?no edema, bilateral palmar erythema and Dupuytren's.?NEUROLOGIC:?alert and oriented.? Assessment: * Assessment: 1.?Chronic GERD - K21.9 (Brooke cuenca)?2.?Hoffman esophagus - K22.70?3.?Alcoholic cirrhosis of liver - K70.30? Overall, Clifford appears pal te well considering his age and medical issues, including that of cirrhosis. In regard to his reflux this seems to be fairly stable on a daily PPI in the morning. He is not having any worrisome symptoms such as dysphagia, anorexia, early satiety, or weight loss to suggest the need for endoscopy at this age. Even though he may have Hoffman's esophagus I would not recommend a surveillance endoscopy given his age and comorbidities. In regard to the intermittent symptoms of heartburn in the evening I recommend continuing p.r.n. antacids or H2 blockers. However, if these episodes increasing frequency then the H2 mandy can be used as a nightly medication or the PPI can be changed to b.i.d.. In regard to his underlying alcohol induced cirrhosis this appears to be quite well compensated at the present time given his appearance and laboratories from last fall. His imaging studies from 2021 were not worrisome and I would not recommend any further surveillance imaging studies of his liver at this time given his age of almost 78. His best thing for him is to continue to avoid alcohol completely and be sure to avoid any hepatotoxic medications. He should also avoid any aspirin or NSAIDs given the potential for some underlying portal gastropathy and/or varices in regard to the portal hypertension. If things remained stable he will see me on a p.r.n. basis. Clifford was comfortable with this plan. Thank you again for allowing me to have participated in Clifford's care. Please do not hesitate to contact me if I can be of any further assistance in the future. Plan: * Treatment: * Procedure Codes:?1036F TOBAC CO [id number] BP SCR NOT PRFRM REC REASON NOS * Preventive Medicine:? ??Counseling:?Care goal follow-up plan:?Above Normal BMI Follow-up?Giving encouragement to exercise,?BMI management provided?Yes.? * Follow Up:?prn * * Sign off status: Completed true * Provider:?Lc Avalos MD Date:? 024 Generated for Néstor akers/Earle/Zuleimaitting on:?07/29/2024 11:28 AM EST History and Physical Notes * HPI (History of Present Illness) Category Sub-Category Detail Notes Category Not es incontinence I saw Clifford in followup today in regard to his underlying history of gastroesophageal reflux and reported Hoffman's esophagus, as well as gallstones. He was accompanied by Ny, one of his caregivers from the [facility]. I met Clifford in the Summer of 2021 when he was hospitalized for gallstones and cholecystitis. This was treated with antibiotics as Dr. Moreira felt the case was mild and felt that [facility] was a high surgical risk. He did improve. MRCP was negative for any sign of choledocholithiasis or biliary disease. He does have known cirrhosis related to previous alcohol abuse, but has not had any complications such as variceal bleeding or ascites as far as I know. He is on chronic pantoprazole for his heartburn and reflux symptoms. He carries a diagnosis of Hoffman's esophagus although don't have any records in that regard. He describes at the pantoprazole works well for him during the day but in the evening before bedtime he will tend to have some heartburn intermittently. He takes either p.r.n. famotidine or a chewable antacid with good relief during those occasions. He reports that this does not happen every night. He enjoys a good appetite and denies any dysphagia, early satiety, nausea, no vomiting. He denies any abdominal pain, jaundice, nor any weight loss. He reports his bowel movements have been regular and there's been no sign of any melena nor hematochezia. He does not smoke and has been abstinent from alcohol for about 3 or 4 years now by his history. Laboratories in the fall revealed a normal liver profile and a hemoglobin of 12.2 with MCV of 83. His platelets were borderline at 149,000. Examination Category Sub-Category Detail Notes Category Not es General Examination GENERAL APPEARANCE: pleasant , well [...]
--- OUTSIDE RECORDS SUMMARY | 2024-07-29 16:56 | XMS_ITS ---
Author Organization [facility] Address [address] [place] [address] Care Team Providers Care Correctional Therapy Director Name Role Phone Thais Greenberg Primary Care Provider Unavaila Lc Samuel Unavailable [phone] Tatum MURRELL, Jamison Blood Unavailable REASON FOR VISIT barretts esophagus Encounters Encounter Location Date Provider Diagnosis [facility] [address] [place] [address] 10/30/2023 Lc Avalos Plan Of Treatment No Information Progress Notes * MARIANNE DAVILADOB: (78 yo M)Acc No.[id number]:10/30/2023 Progress Notes Patient:?MARIANNE DAVILA Provider:?Lc Avalos MD :1945???Age:78 Y???Sex:Male Vicente e:10/30/2023 Address:[facility], [address] [place], [place] [id number] Pcp:Thais Greenberg Subjective: * Chief Complaints: * ???1. Barretts esophagus. * Medical History:? Objective: * Vitals:? Assessment: Plan: * Treatment: * * The named appointment provid er may or may not be the originator of this progress note, and it is not deemed complete until electronically signed by the appointment provider. Sign off status: Pending * Provider:?Lc Avalos MD Date:? 024 Generated for Néstor akers/Earle/Zuleimaitting on:?07/29/2024 11:28 AM EST
== END 2024-07-29 16:15 | disposition home or self-care (01) ==
LOC: HO.HUSV 14:05
PROVIDERS: Visit Provider Nurse Practitioner Family
DX: Z85.46 Personal history of malignant neoplasm of prostate (principal); R33.9 Retention of urine, unspecified
CPT/HCPCS: 99308

== ENCOUNTER 2024-08-24 06:57 | Outpatient (REF) | payer MEDICARE, SELFPAY ==
[2024-08-24 07:18] LABS: MANUAL DIFF FLAG NO
[2024-08-24 07:29] LABS: Basophils Percent Auto 0.7 % (0-2); Eosinophils Absolute Auto 0.2 X10*3/uL (0.0-0.4); Eosinophils Percent Auto 2.9 % (0-4); Hematocrit 35.5 % (42.0-52.0); Hemoglobin 11.8 g/dl (14.0-18.0); Imm Gran Abs Auto 0.03 X10*3/uL (0.00-0.03); Imm Gran Pct Auto 0.5 % (0.0-0.4); Lymphocytes Absolute Auto 1.4 X10*3/uL (1.2-4.9); Lymphocytes Percent Auto 24.4 % (20-40); Mean Corpuscular HGB Conc 33.2 g/dl (31.0-36.0); Mean Corpuscular Hemoglobin 27.4 pg (27.0-33.0); Mean Corpuscular Volume 82.4 fL (80.0-98.0); Mean Platelet Volume 10.2 fL (9.4-12.4); Monocytes Absolute Auto 0.6 X10*3/uL (0.1-1.2); Monocytes Percent Auto 9.5 % (2-11); Neutrophils Absolute Auto 3.7 x10*3/uL (2.0-8.3); Platelet Count 166 X10*3/uL (160-400); Red Blood Count 4.31 X10*6/uL (4.60-5.80); Red Cell Distribution Width 14.8 % (11.0-16.0); White Blood Count 5.9 X10*3/uL (4.8-10.8)
[2024-08-24 07:49] LABS: Alanine Aminotransferase 16 U/L (0-40); Albumin Level 3.8 g/dL (3.5-5.0); Alkaline Phosphatase 93 U/L (39-117); Anion Gap 13 (12-20); Aspartate Amino Transferase 18 U/L (5-37); Bilirubin Direct 0.1 mg/dL (0.0-0.5); Bilirubin Total 0.5 mg/dL (0.0-1.0); Blood Urea Nitrogen 23 mg/dL (9-16); Calcium 8.8 mg/dL (8.4-10.2); Carbon Dioxide 23 mmol/L (22-29); Chloride 110 mmol/L (96-108); Estimated Glomerular Filt Rate 42; Glucose Random 94 mg/dL (60-115); Magnesium 2.1 mg/dL (1.6-2.6); Potassium 4.8 mmol/L (3.3-5.1); Sodium 141 mmol/L (135-145); Total Protein 6.4 g/dL (6.5-8.0)
== END 2024-08-24 06:58 | disposition home or self-care (01) ==
LOC: HO.HSH3N 06:57
PROVIDERS: Visit Provider Nurse Practitioner Acute Care
DX: K74.60 Unspecified cirrhosis of liver (principal)
CPT/HCPCS: 36415; 80048; 80076; 83735; 85025

== ENCOUNTER → 2024-08-25 13:11 | Outpatient (REF) | payer MEDICARE, SELFPAY ==
--- OUTSIDE RECORDS SUMMARY | 2024-08-25 15:29 | XMS_ITS | Encounter Summary ---
Author Organization [employer] Address [address] [facility] 7t [place] [address] Care Team Providers Care Director Of Physician Practices Name Role Phone Unavailable Primary Care Provider Unavailabl e Encounter Details Date Type Department Care Team (Late st Contact Info) Description 06/20/[address] [facility] [address] [place] [address] Robin Pastor, ANEESH [address] [facility] [place] [address] Social History Tobacco Use Types Packs/Day Years [...]
--- OUTSIDE RECORDS SUMMARY | 2024-08-25 15:29 | XMS_ITS ---
Author Organization [facility] Address [address] [place] [address] Care Team Providers Care Spring Assembler Supervisor Name Role Phone Thais Greenberg Primary Care Provider Unavaila Lc Samuel Unavailable [phone] Tatum MURRELL, Jamison Blood Unavailable REASON FOR VISIT barretts esophagus Encounters Encounter Location Date Provider Diagnosis [facility] [address] [place] [phone] 10/30/2023 Lc Avalos Plan Of Treatment No Information Progress Notes * MARIANNE DAVILADOB: (78 yo M)Acc No.[id number]:10/30/2023 Progress Notes Patient:?MARIANNE DAVILA Provider:?Lc Avalos MD :1945???Age:78 Y???Sex:Male Vicente e:10/30/2023 Address:[facility], [address] [place], [place] [id number] Pcp:Thais Greenberg Subjective: * Chief Complaints: * [...] MD Date:? 024 Generated for Néstor akers/Earle/Zuleimaitting on:?08/25/2024 03:29 PM EDT
--- OUTSIDE RECORDS SUMMARY | 2024-08-25 15:29 | XMS_ITS | Encounter Summary ---
Author Organization [employer] Address [address] [facility] [address]t [place] [address] Care Team Providers Care Driver Utility Worker Name Role Phone Unavailable Primary Care [...]
--- OUTSIDE RECORDS SUMMARY | 2024-08-25 15:29 | XMS_ITS | Encounter Summary ---
Author Organization [employer] Address [address] [facility] [address] [place] [address] Care Team Providers Care Senior Search Marketing Analyst Name Role Phone Unavailable Primary Care Provider Unavailabl e Encounter Details Date Type Department Care Team (Late st Contact Info) Description 06/20/[address] [facility] [address] [place] [address] Robin Pastor, ANEESH [address] [facility] [place] [address] Social History Tobacco Use Types Packs/Day Years [...]
--- OUTSIDE RECORDS SUMMARY | 2024-08-25 15:29 | XMS_ITS | Encounter Summary ---
Author Organization [employer] Address [address] [facility] [address]t [place] [address] Care Team Providers Care Chart Collector Name Role Phone Unavailable Primary Care Provider Unavailabl e Encounter Details Date Type Department Care Team (Late st Contact Info) Description 05/03/2023 Abstract [facility] [address] [place] [address] Robin Pastor, ANEESH [address] [facility] [place] [address] Social History Tobacco Use Types Packs/Day Years [...]
--- OUTSIDE RECORDS SUMMARY | 2024-08-25 15:30 | XMS_ITS | Clinical Summary ---
Author Organization [employer] Address [address] [facility] [address] [place] [address] Care Team Providers Care Sld Teacher Name Role Phone Unavailable Primary Care [...]
--- OUTSIDE RECORDS SUMMARY | 2024-08-25 15:30 | XMS_ITS ---
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 Problem Alcoholic cirrhosis of liver (688059270) Alcoholic cirrhosis of liver (K70.30) Active confirmed Vital Signs Temperature 97.5 degrees Fahrenheit 07/10/19 24 Blood pressure systolic 000 mm Hg 07/10/19 24 Blood pressure diastolic 00 mm Hg 024 Height 5 ft 9 in in 07/10/2023 Weight 171 lbs 07/10/2023 BMI 25.25 kg/m2 07/10/2023 Encounters Encounter Location Date Provider Diagnosis [facility] [address] [place] [address] 07/10/2023 Lc Avalos Chronic GERD K21.9 ; [...] * CLIFFORD DAVILADOB: [birth year] (77 yo M)Acc No.[id number]:07/10/2023 Progress Notes Patient:?CLIFFORD DAVILA Provider:?Lc Avalos MD :1945???Age:77 Y???Sex:Male Vicente e:07/10/2023 Address:[facility], [address] [place] [address] Pcp:Thais Greenberg Subjective: * Chief Complaints: * ???Patient presents today fo r barretts esophagus * HPI: ???incontinence:? I saw Clifford in followup today in regard to his underlying history of gastroesophageal reflux and reported Hoffman's esophagus, as well as gallstones. He was accompanied by Ny, one of his caregivers from the [facility]. ?I met Clifford in the summer [...] Medical History:? * Surgical History:?Pro[facility]ct cristina at [facility] * Hospitalization/Major Diagno stic Procedure:?No Hospitalization History. [...] * Treatment: * Procedure Codes:?1036F TOBAC CO [id number] BP SCR NOT PRFRM REC REASON NOS * Preventive Medicine:? ??Counseling:?Care goal follow-up plan:?Above Normal BMI Follow-up?Giving encouragement to exercise,?BMI management provided?Yes.? * Follow Up:?prn * * Sign off status: Completed true * Provider:?Lc Avalos MD Date:? 024 Generated for Néstor akers/Earle/Zuleimaitting on:?08/25/2024 03:29 PM EDT History and Physical Notes * HPI (History of Present Illness) Category Sub-Category Detail Notes Category Not es incontinence I saw Clifford in followup today in regard to his underlying history of gastroesophageal reflux and reported Hoffman's esophagus, as well as gallstones. He was accompanied by Ny, one of his caregivers from the [facility]. I met Clifford in the Summer of 2021 when he was hospitalized for gallstones and cholecystitis. This was treated with antibiotics as Dr. Moreira felt the case was mild and felt that [facility] was a high surgical risk. He did [...]
--- OUTSIDE RECORDS SUMMARY | 2024-08-25 15:30 | XMS_ITS | Patient Health Record ---
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 Problem Gastroesophageal reflux disease (738947666) Chronic GERD (K21.9) Active confirmed Plan Of Treatment No Information Insurance Providers Payer Name Payer Address Payer Phone Subscriber Number Group Number Insured Name Patient Relationship to Insured Coverage Start Date Coverage End Date MEDICARE OF [employer] GARCIA [address] [place] [id number] MARIANNE DAVILA Self - patient is the insured Medical (General) History Medical History History ICD Code Coronary artery disease with previous [place] GERD was reported Hoffman's esophagus, although I [...] Surgery Date(Month/Year) Prostatectomy at [facility]
== END ==
LOC: HO.CARD 13:11
PROVIDERS: Visit Provider Internal Medicine
DX: I45.5 Other specified heart block (principal)
CPT/HCPCS: 93242

== ENCOUNTER → 2024-08-25 13:15 | Outpatient (BNV) | payer MEDICARE, SELFPAY | PROVIDERS: Visit Provider Internal Medicine Cardiovascular Disease | DX: I44.1 Atrioventricular block, second degree (principal); I49.3 Ventricular premature depolarization | CPT/HCPCS: 93244 ==

== ENCOUNTER 2024-09-09 15:15 | Outpatient (AMB) | payer MEDICARE, SELFPAY ==
[2024-09-09 15:19] VITALS: BP 120/78; PULSE 84
--- NOTE | 2024-09-09 15:19 | A.OFFVIS_ITS ---
Vital Signs 09/09/24 15:19 Height 5 ft 10 in BMI Reason not done Patient refused/unable BP 120/78 Blood Pressure Location Lt brachial Position Sitting Pulse 84 Intake Visit Reasons: 6 mth f/up holter Intake Note: 6 month follow-up after holter feeling good Commercial Coordinator Required: No Stone Sandblaster: Stone Sandblaster Present Accompanied by: CASUALTY INSURANCE CLAIM ADJUSTER Allergies lisinopril [LISINOPRIL] Allergy (Mild, Verified 07/29/24 16:13) UNKNOWN baclofen [BACLOFEN] Allergy (Unknown, Verified 07/29/24 16:13) UNKNOWN shellfish derived [SHELLFISH DERIVED] Allergy (Unknown, Verified 07/29/24 16:13) UNKNOWN Medication List - Last Reconciled 09/09/24 by Nnamdi Damon MD acetaminophen 650 mg PO Q6H PRN allopurinol 50 mg PO DAILY alum-mag hydroxide-simeth 200-200-20 mg/5 mL (Mag-Al Plus) 30 mL PO TID PRN amlodipine 2.5 mg See Protocol PO DAILY 90 days atorvastatin 40 mg PO BEDTIME 90 days calcium carbonate 500 mg PO TID PRN cholecalciferol (vitamin D3) 50 mcg PO DAILY clopidogrel 75 mg PO DAILY 90 days famotidine 20 mg PO DAILY lactase 3,000 units PO QID PRN loperamide 2 mg PO Q6H PRN loratadine 10 mg PO BEDTIME mirtazapine 30 mg PO DAILY multivitamin 1 tab PO DAILY ondansetron 4 mg PO Q6H PRN pantoprazole 40 mg PO BID polyethylene glycol 3350 17 grams PO DAILY PRN sertraline 50 mg PO DAILY tamsulosin (Flomax) 0.4 mg PO DAILY thiamine HCl (vitamin B1) 100 mg PO DAILY HPI Comments Details: [facility] returns for follow-up of various cardiac issues. During prior hospitalization for cholecystitis, had NSTEMI. Echocardiogram was suggestive of wall motion abnormalities/underlying coronary disease. However, multiple medical comorbidities including cirrhosis, CKD and dementia. Hence it was felt that he is not a good candidate for cardiac catheterization. Medically treated. He also has Mobitz type 1 second-degree heart block. In 04/2024, he was admitted for stroke type symptoms and in that setting, Cardiology was consulted for concern of heart block. Noted to be Mobitz type 1 block but recommended only conservative care considering his comorbidities. Overall, it seems that he is generally doing okay without any clear-cut cardiac symptoms. [facility], [facility] Medical History CKD (chronic kidney disease) New onset of congestive heart failure Diverticulitis Dementia Hoffman esophagus Malignant neoplasm of prostate Cirrhosis of liver Surgical History H/O radical prostatectomy Family History Father CAD (coronary artery disease) Social History Household Members: Other Housing: [facility] Alcohol intake: former Patient Tobacco Use Status: Never used Tobacco Advance Directives Date on File: 12/22/21 service: Yes Current occupational status: retired Review of Systems Const Denies chills, Denies fatigue, Denies fever(s), Denies frequent falls, Denies weakness, Denies weight gain and Denies weight loss ENT Denies dizziness Card Denies chest pain, Denies leg edema, Denies lightheadedness, Denies palpitations, Denies dyspnea, Denies dyspnea on exertion, Denies orthopnea and Denies other (loss of consciousness) Resp Denies cough, Denies dyspnea and Denies dyspnea on exertion GI Denies hematochezia and Denies change in stool character Musc Denies abnormal gait, Denies muscle weakness, Denies numbness, Denies radiating pain into limb and Denies tingling Neuro Denies abnormal gait, Denies dizziness, Denies frequent falls, Denies numbness, Denies tingling and Denies weakness Endo Denies fatigue and Denies palpitations Physical Exam Vital Signs: Last Vital Signs Pulse 84 09/09/24 15:19 BP 120/78 09/09/24 15:19 Const General: comfortable and no acute distress Orientation/consciousness: patient oriented x3 HEENT Other: Unremarkable Head: Yes normal to inspection Neck Neck: Yes normal visual inspection Chest Chest palpation & inspection: normal inspection of the chest Resp Auscultation: clear to auscultation bilaterally Cardio Palpation: normal PMI Heart sounds: S1 normal heart sound present, S2 normal heart sound present, no gallops, no murmurs and no rubs GI Palpation (GI): Soft to palpation Back/Spine/Pelvis Other: unremarkable Skin General skin exam: no rashes or lesions noted Neuro General: patient oriented x3 Extrem General: Yes normal to inspection Psych Mental Status: mental status grossly abnormal Assessment & Plan Assessment & Plan (1) Atherosclerotic cardiovascular disease: Code(s): I25.10 - Atherosclerotic heart disease of [place] coronary artery without angina pectoris Category: Medical (2) NSTEMI (non-ST elevated myocardial infarction): Code(s): I21.4 - Non-ST elevation (NSTEMI) myocardial infarction Category: Medical (3) Cardiomyopathy: Code(s): I42.9 - Cardiomyopathy, unspecified Category: Medical (4) Heart block: Code(s): I45.9 - Conduction disorder, unspecified Category: Medical Plan In the most recent echocardiogram, LVEF is 40-45%. Similar to prior study. In a previous study, wall motion abnormalities were described. Last EKG shows conduction system disease including Mobitz type 1 second-degree heart block as well as right bundle-branch block. In the most recent Holter monitor, underlying rhythm is sinus. There is evidence of Mobitz type 1 second-degree heart block and in some areas looks like possible third-degree. Overall, suspected coronary disease, mid range LVEF, many comorbidities including dementia, cirrhosis, probable portal hypertension, splenomegaly, chronic kidney disease, recent cerebrovascular accident. We discussed at length regarding Holter monitor findings and indication for pacemaker. Pros and cons discussed. After long discussion, daughter as well as the patient stated that they are not interested in pacemaker placement. They are aware of the fact that there is a possibility of worsening bradycardia and asystole leading to . Also stated the fact that if they do change their mind they can reach back and we will make an EP referral that time. Otherwise, can keep the cardiac care conservative. He was on dual antiplatelet therapy but it seems he is only on Plavix at this time. That seems very reasonable to cut back on bleeding risk. Patient Instructions: - Monitor heart symptoms regularly and report any significant changes. - Continue with current treatment regimen unless otherwise advised. - Schedule regular follow-ups for cognitive and cardiac evaluation. - Consult healthcare provider immediately if feeling unwell or symptoms escalate . Coding Level of Care Code Est Pt Level 4 (19552) Complex EM visit Add On G2211 Diagnoses Atherosclerotic cardiovascular disease I25.10 NSTEMI (non-ST elevated myocardial infarction) I21.4 Cardiomyopathy I42.9 Heart block I45.9
--- OUTSIDE RECORDS SUMMARY | 2024-09-09 17:49 | XMS_ITS | Encounter Summary ---
Author Organization [employer] Address [address] [facility] [address] [place] [address] Care Team Providers Care Warp Worker Name Role Phone Unavailable Primary Care Provider Unavailabl e Encounter Details Date Type Department Care Team (Late st Contact Info) Description 06/20/2023 Abstract [facility] [address] [place] [address] Robin Pastor, ANEESH [address] [facility] [place] [address] Social History Tobacco Use Types Packs/Day Years [...]
--- OUTSIDE RECORDS SUMMARY | 2024-09-09 17:49 | XMS_ITS ---
Author Organization [facility] Address [address] [place] [address] Care Team Providers Care Editing Intern Name Role Phone Thais Greenberg Primary Care Provider Unavaila Lc Samuel Unavailable [phone] Jamison Winn MD Unavailable REASON FOR VISIT barretts esophagus Encounters Encounter Location Date Provider Diagnosis [facility] [address] [place] [id number] 10/30/2023 Lc Avalos Plan Of Treatment No Information Progress Notes * MARIANNE DAVILADOB: (78 yo M)Acc No.[id number]:10/30/2023 Progress Notes Patient:?MARIANNE DAVILA Provider:?cL Avalos MD :1945???Age:78 Y???Sex:Male Vicente e:10/30/2023 Address:[facility], [address] [place], [place] [id number] Pcp:Thais Greenberg Subjective: * Chief Complaints: * [...] MD Date:? 024 Generated for Néstor akers/Earle/Zuleimaitting on:?09/09/2024 05:48 PM EDT
--- OUTSIDE RECORDS SUMMARY | 2024-09-09 17:49 | XMS_ITS ---
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 Problem Alcoholic cirrhosis of liver (184094186) Alcoholic cirrhosis of liver (K70.30) Active confirmed Vital Signs Temperature 97.5 degrees Fahrenheit 07/10/19 24 Blood pressure systolic 000 mm Hg 07/10/19 24 Blood pressure diastolic 00 mm Hg 024 Height 5 ft 9 in in 07/10/2023 Weight 171 lbs 07/10/2023 BMI 25.25 kg/m2 07/10/2023 Encounters Encounter Location Date Provider Diagnosis [facility] [address] [place] [address] 07/10/2023 Lc Avalos Chronic GERD K21.9 ; [...] * CLIFFORD DAVILADOB: 4 (77 yo M)Acc No.[id number]:07/10/2023 Progress Notes Patient:?CLIFFORD DAVILA Provider:?Lc Avalos MD :1945???Age:77 Y???Sex:Male Vicente e:07/10/2023 Address:[facility], [address] [place] [address] Pcp:Thais Greenberg Subjective: * Chief Complaints: * ???Patient presents today fo r barretts esophagus * HPI: ???incontinence:? I saw Clifford in followup today in regard to his underlying history of gastroesophageal reflux and reported Hoffman's esophagus, as well as gallstones. He was accompanied by Ny, one of his caregivers from the [facility]. ?I met Clifford in the summer [...] [facility] at [facility] * Hospitalization/Major Diagno stic Procedure:?No Hospitalization History. [...] * Treatment: * Procedure Codes:?1036F TOBAC CO NON-ORVRJ3625 BP SCR NOT PRFRM REC REASON NOS * Preventive Medicine:? ??Counseling:?Care goal follow-up plan:?Above Normal BMI Follow-up?Giving encouragement to exercise,?BMI management provided?Yes.? * Follow Up:?prn * * Sign off status: Completed true * Provider:?Lc Avalos MD Date:? 024 Generated for Néstor akers/Earle/Zuleimaitting on:?09/09/2024 05:48 PM EDT History and Physical Notes * HPI (History of Present Illness) Category Sub-Category Detail Notes Category Not es incontinence I saw Cliffrod in followup today in regard to his underlying history of gastroesophageal reflux and reported Hoffman's esophagus, as well as gallstones. He was accompanied by Ny, one of his caregivers from the [facility]. I met Clifford in the Summer of 2021 when he was hospitalized for gallstones and cholecystitis. This was treated with antibiotics as Dr. Moreira felt the case was mild and felt that [facility] was a high surgical risk. [...]
--- OUTSIDE RECORDS SUMMARY | 2024-09-09 17:49 | XMS_ITS | Encounter Summary ---
Author Organization [employer] Address [address] [facility] 7[address] [place] [address] Care Team Providers Care Investigation Specialist Name Role Phone Unavailable Primary Care Provider Unavailabl e Encounter Details Date Type Department Care Team (Late st Contact Info) Description 05/03/2023 Abstract [facility] [address] [place] [address] Robin Pastor, ANEESH [address] [facility] [place] [address] Social History Tobacco Use Types Packs/Day Years [...]
--- OUTSIDE RECORDS SUMMARY | 2024-09-09 17:49 | XMS_ITS | Clinical Summary ---
Author Organization [employer] Address [address] [facility] [address] [place] [address] Care Team Providers Care Skills Auditor Name Role Phone Unavailable Primary Care Provider [...]
--- OUTSIDE RECORDS SUMMARY | 2024-09-09 17:49 | XMS_ITS | Patient Health Record ---
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 Problem Gastroesophageal reflux disease (686236563) Chronic GERD (K21.9) Active confirmed Plan Of Treatment No Information Insurance Providers Payer Name Payer Address Payer Phone Subscriber Number Group Number Insured Name Patient Relationship to Insured Coverage Start Date Coverage End Date MEDICARE OF [employer]ANA GARCIA [address] [place] [id number] MARIANNE DAVILA Self - patient is the insured Medical (General) History Medical History History ICD Code Coronary artery disease with previous [place] GERD was reported Hoffman's esophagus, although I [...] Surgery Date(Month/Year) [facility]ctomy at [facility]
--- OUTSIDE RECORDS SUMMARY | 2024-09-09 17:49 | XMS_ITS | Encounter Summary ---
Author Organization [employer] Address [address] [facility] [address] [place] [address] Care Team Providers Care Theology Teacher Name Role Phone Unavailable Primary Care Provider Unavailabl e Encounter Details Date Type Department Care Team (Late st Contact Info) Description 06/20/2023 Abstract [facility] [address] [place] [address] Robin Pastor, ANEESH [address] [facility] [place] [address] Social History Tobacco Use Types Packs/Day Years [...]
--- OUTSIDE RECORDS SUMMARY | 2024-09-09 17:49 | XMS_ITS | Encounter Summary ---
Author Organization [employer] Address [address] [facility] [address] [place] [address] Care Team Providers Care Wage Analyst Name Role Phone Unavailable Primary Care [...]
== END 2024-09-09 15:48 | disposition home or self-care (01) ==
LOC: HO.HCS 15:15
PROVIDERS: PCP Nurse Practitioner Acute Care; Visit Provider Internal Medicine
DX: I25.10 Atherosclerotic heart disease of native coronary artery without angina pectoris (principal); I21.4 Non-ST elevation (NSTEMI) myocardial infarction; I42.9 Cardiomyopathy, unspecified; I45.9 Conduction disorder, unspecified
CPT/HCPCS: 99214; G2211

== ENCOUNTER → 2024-09-09 15:15 | Outpatient (BNVA) | payer MEDICARE, SELFPAY | PROVIDERS: PCP Nurse Practitioner Acute Care; Visit Provider Internal Medicine | DX: I25.10 Atherosclerotic heart disease of native coronary artery without angina pectoris (principal); I42.9 Cardiomyopathy, unspecified; I45.9 Conduction disorder, unspecified; I25.2 Old myocardial infarction | CPT/HCPCS: 99212 ==

== ENCOUNTER 2024-09-21 16:01 | Emergency (ER) | payer MEDICARE, SELFPAY ==
[2024-09-21] VITALS (9 sets, daily range): BP systolic 84–145; BP diastolic 53–80; PULSE 40–103; RESP 13–18; TEMP 36.5–36.7; O2SAT 95–99; BMI 23.9
--- NOTE | 2024-09-21 | ECG_ITS ---
Test Reason : bradycardic Blood Pressure : */* mmHG Vent. Rate : 80 BPM Atrial Rate : 29 BPM P-R Int : * ms QRS Dur : 158 ms QT Int : 410 ms P-R-T Axes : * 137 -30 degrees QTcB Int : 472 ms Undetermined rhythm Right bundle branch block T wave abnormality, consider inferior ischemia Abnormal ECG When compared with ECG of 21-Sep-2024 16:09, Current undetermined rhythm precludes rhythm comparison, needs review Right bundle branch block is now Present Referred By: Jocelyne Saleem Electronically Signed By: Duncan Winters
--- NOTE | 2024-09-21 | ECG_ITS ---
Test Reason : bradycardic Blood Pressure : */* mmHG Vent. Rate : 76 BPM Atrial Rate : * BPM P-R Int : * ms QRS Dur : 120 ms QT Int : 438 ms P-R-T Axes : * 43 12 degrees QTcB Int : 492 ms Wide QRS rhythm Right bundle branch block Abnormal ECG When compared with ECG of 21-Sep-2024 16:34, Previous ECG has undetermined rhythm, needs review Referred By: Jocelyne Saleem Electronically Signed By: Duncan Winters
--- NOTE | 2024-09-21 16:05 | ECG_ITS ---
Test Reason : bradycardic Blood Pressure : */* mmHG Vent. Rate : 78 BPM Atrial Rate : 78 BPM P-R Int : 128 ms QRS Dur : 120 ms QT Int : 440 ms P-R-T Axes : 20 225 -3 degrees QTcB Int : 501 ms Sinus rhythm with frequent , and consecutive Premature ventricular complexes and Fusion complexes Right superior axis deviation Inferior infarct , age undetermined Abnormal ECG When compared with ECG of 28-May-2024 11:56, Sinus rhythm has replaced Wide QRS rhythm Referred By: Generic ED Physician Electronically Signed By: Duncan Winters
--- NOTE | 2024-09-21 16:27 | ED.ARRPALP ---
HPI - Arrhythmia/Palpitations General Chief Complaint: Arrhythmia/Palpitations Stated Complaint: bradycardic, HR in the 40s Time Seen by Provider: 09/21/24 16:04 Source: patient and EMS Mode of arrival: EMS Limitations: other History of Present Illness ED Provider: Dr. Jocelyne Saleem HPI narrative: Patient comes to the emergency room via EMS from the [facility]. Patient has history of dementia and is unable to give significant history or make his own decisions. Patient has a healthcare proxy invoked. According to EMS, today the patient was at the group home, stood up, started feeling very lightheaded. Patient did not syncopized. Patient does not remember anything what happened. Patient's vitals were checked at the group home, heart rate ranged between the 30s and the 40s. EMS was calledPatient was still bradycardic in the 30s, EMS was unaware of patient's previous diagnosis of heart block and gave him atropine. At this time, patient has no complaints. Related Data Home Medications ?Medication ?Instructions ?Recorded ?Confirmed allopurinol 100 mg tablet 50 mg PO DAILY 12/18/21 09/09/24 cholecalciferol (vitamin D3) 50 50 mcg PO DAILY 12/18/21 09/09/24 mcg (2,000 unit) tablet loratadine 10 mg tablet 10 mg PO BEDTIME 12/18/21 09/09/24 pantoprazole 40 mg tablet,delayed 40 mg PO BID 06/17/23 09/09/24 release mirtazapine 30 mg tablet 30 mg PO DAILY 03/02/24 09/09/24 multivitamin 1 tab PO DAILY 05/06/24 09/09/24 thiamine HCl (vitamin B1) 100 mg 100 mg PO DAILY 05/06/24 09/09/24 tablet acetaminophen 325 mg tablet 650 mg PO Q6H PRN Pain (Scale 05/28/24 09/09/24 Score 1-3) aluminum-mag hydroxide-simethicone 30 ml PO TID PRN Heartburn 05/28/24 09/09/24 200 mg-200 mg-20 mg/5 mL oral susp (Mag-Al Plus) calcium carbonate 500 mg PO TID PRN Stomach Upset 05/28/24 09/09/24 famotidine 20 mg tablet 20 mg PO DAILY 05/28/24 09/09/24 lactase 3,000 unit tablet 3,000 unit PO QID PRN Dairy 05/28/24 09/09/24 loperamide 2 mg tablet 2 mg PO Q6H PRN Diarrhea 05/28/24 09/09/24 ondansetron 4 mg disintegrating 4 mg PO Q6H PRN Nausea And Vomiting 05/28/24 09/09/24 tablet polyethylene glycol 3350 17 gram 17 g PO DAILY PRN Constipation 05/28/24 09/09/24 oral powder packet sertraline 50 mg tablet 50 mg PO DAILY 07/29/24 09/09/24 tamsulosin 0.4 mg capsule (Flomax) 0.4 mg PO DAILY 07/29/24 09/09/24 Previous Rx's ?Medication ?Instructions ?Recorded amlodipine 2.5 mg tablet 2.5 mg PO DAILY 90 days #90 tabs 05/08/24 atorvastatin 40 mg tablet 40 mg PO BEDTIME 90 days #90 tabs 05/08/24 clopidogrel 75 mg tablet 75 mg PO DAILY 90 days #90 tabs 05/08/24 Allergies Allergy/AdvReac Type Severity Reaction Status Date / Time lisinopril [LISINOPRIL] Allergy Mild UNKNOWN Verified 09/21/24 16:18 baclofen [BACLOFEN] Allergy Unknown UNKNOWN Verified 09/21/24 16:18 shellfish derived Allergy Unknown UNKNOWN Verified 09/21/24 16:18 [SHELLFISH DERIVED] Review of Systems Review of Systems: Overall denies chest pain or shortness of breath. Yes Unobtainable due to mental condition (Dementia) [facility] Past Medical History Medical History CKD (chronic kidney disease) New onset of congestive heart failure Diverticulitis Dementia Hoffman esophagus Malignant neoplasm of prostate Cirrhosis of liver Surgical History H/O radical prostatectomy Family History Family History Father CAD (coronary artery disease) Social History Social History Household Members: Other Housing: Penitentiary Alcohol intake: former Patient Tobacco Use Status: Never used Tobacco Smoked in Last 30 Days: No Use of substances other than those prescribed or required for medical reasons: No Advance Directives: Yes Advance Directives on File: Yes Advance Directives Date on File: 12/22/21 service: Yes Current occupational status: retired Physical Exam Vital Signs: Vital Signs: Last Vital Signs Temp 97.7 F 09/21/24 17:30 Pulse 72 09/21/24 17:30 Resp 15 09/21/24 17:30 BP 103/58 L 09/21/24 17:30 Pulse Ox 99 09/21/24 16:18 O2 Del Method Room Air 09/21/24 16:18 BMI result Body Mass Index 23.9 Const: Other: Appearance: Alert. Oriented X1 No acute distress. Eyes: Pupils equal, round and reactive to light. ENT: Pharynx normal. Neck: Normal inspection. Neck supple. No lymph nodes noted. No crepitus CVS: Regularly regular rhythm. Pulses normal. Normal S1 and S2 Respiratory: No respiratory distress. Breath sounds normal. No Wheezing. No rales Abdomen: Soft and nontender. No rigidity. No distention. Skin: Skin warm and dry. Normal skin color. Normal skin turgor. Extremities: No lower extremity edema. No Lacerations. No Rash Neuro: Oriented X 1 No motor deficit. No sensory deficit. Moving all extremities. No slurred speech. CN 2 through 12 grossly intact Psych: calm, cooperative Course Course Course Narrative: I reviewed patient's past medical records. Seems that patient has already been diagnosed with a Mobitz second-degree block. Seems the patient also had a Holter monitor evaluation done, a pacemaker was offered to the patient. However, back in August, patient declined a pacemaker. At this time, no patient does not make his own decisions due to history of dementia. At this time, patient states that he does not quite feel well, unable to verbalize how he feels. Denies chest pain or shortness of breath, denies dizziness Medications Administered Generic Name Dose Route Start Last Admin Trade Name Freq PRN Reason Stop Dose Admin Sodium Chloride 500 mls @ 75 mls/hr 09/21/24 18:00 09/21/24 18:04 Ns IVCONT 75 mls/hr .Q6H40M SERGIO Administration Medical Decision Making Medical Decision Making [facility] Narrative: I discussed the patient with Dr. Garcia from Cardiology. At this time, based on patient's EKGs, looks like patient was in junctional rhythm. Patient's blood pressure in the 130s systolic. At this time, emergent pacemaker placement is not indicated. All of patient's labs are pending We will admit the patient and keep him NPO after midnight EKG 1: Sinus rhythm, frequent PVCs, nonspecific T-wave changes in all leads, QTC 501 EKG 2: Undetermined rhythm, heart rate 80s, again noted to have T-wave changes, mostly inversions and ST changes in leads, QTC 472 EKG 3: Sinus rhythm, heart rate 76, no ST segment depressions or elevation, QTC 492 my interpretation of labs: No significant abnormality in patient's hematology and chemistry, patient is chronically anemic, today hemoglobin is 10.5, hematocrit 32.8. Patient's chemistry shows a creatinine of 1.66 which is at patient's baseline. Troponin is -18.3, BNP 393 which is also at patient's baseline orthostatic vitals were positive patient does not seem to be fluid overloaded I discussed the patient with Dr. Garcia, we will provide him with a small and slow drip of IV fluids Dr. Garcia reviewed patient's medical records. Recommendations: Although patient is stable at this time,it is possible that the patient may decompensate in the coming hours and may need a pacemaker. we do not have anyone who can help us with the pacemaker here at [facility]. We tried contacting our neighboring hospitals, but all are close to transfer or they do not insert pacemakers. Patient was accepted [facility] in [facility], patient will be going from ED to ED, accepting physician is Dr. David Ahmadi At this time of transfer, patient is stable, heart rate 69, blood pressure 123/48, map 73, oxygen saturation 99% on room air. I discussed the above-mentioned with the patient's healthcare proxy, patient's daughter Kaylee Akers [phone], who is agreeable to have the patient transferred to any hospital. Differential Diagnosis Differential Diagnoses: The differential diagnosis associated with the presentation includes ( Second degree heart block, complete heart block, orthostatic hypotension, tachycardia /bradycardia syndrome) Admission/Observation Consideration of admission/observation: Escalation of care including admission/observation considered Consult Healthcare Provider Management of the patient was discussed with: Header Dock Lab Data [facility] Lab Attestation statement: I reviewed the patient's lab results. 09/21/24 16:30 09/21/24 16:30 Labs: Lab Results 09/21/24 Range/Units 16:30 WBC 5.6 (4.8-10.8) X10*3/uL RBC 4.03 L (4.60-5.80) X10*6/uL Hgb 10.5 L (14.0-18.0) g/dl Hct 32.8 L (42.0-52.0) % MCV 81.4 (80.0-98.0) fL MCH 26.1 L (27.0-33.0) pg MCHC 32.0 (31.0-36.0) g/dl RDW 14.5 (11.0-16.0) % Plt Count 194 (160-400) X10*3/uL MPV 9.8 (9.4-12.4) fL Immature Gran % (Auto) 0.4 (0.0-0.4) % Neut % (Auto) 62.0 (45-73) % Lymph % (Auto) 25.9 (20-40) % [place] % (Auto) 8.1 (2-11) % Eos % (Auto) 2.7 (0-4) % Baso % (Auto) 0.9 (0-2) % Lymph # (Auto) 1.4 (1.2-4.9) X10*3/uL [place] # (Auto) 0.5 (0.1-1.2) X10*3/uL Eos # (Auto) 0.2 (0.0-0.4) X10*3/uL Baso # (Auto) 0.1 (0.0-0.2) X10*3/uL Abs Immat Gran (auto) 0.02 (0.00-0.03) X10*3/uL Absolute Neuts (auto) 3.5 (2.0-8.3) x10*3/uL Absolute Nucleated RBC 0.000 (0.0-0.012) X10*3/uL Nucleated RBC % (auto) 0.0 (0.0-0.2) /100WBC Sodium 145 (135-145) mmol/L Potassium 4.5 (3.3-5.1) mmol/L Chloride 112 H (96-108) mmol/L Carbon Dioxide 22 (22-29) mmol/L Anion Gap 16 (12-20) BUN 23 H (9-16) mg/dL Creatinine 1.66 H (0.5-1.4) mg/dL Estim Creat Clear Calc 35.4 Estimated GFR 40 Random Glucose 95 (60-115) mg/dL Calcium 9.0 (8.4-10.2) mg/dL Magnesium 2.3 (1.6-2.6) mg/dL Total Bilirubin 0.5 (0.0-1.0) mg/dL Direct Bilirubin 0.2 (0.0-0.5) mg/dL AST 22 (5-37) U/L ALT 15 (0-40) U/L Alkaline Phosphatase 93 (39-117) U/L Troponin I High Sens 18.3 (<3.5-35.0) ng/L B-Natriuretic Peptide 393 H (<100) pg/mL Total Protein 7.2 (6.5-8.0) g/dL Albumin 4.3 (3.5-5.0) g/dL Independent Interpretation I performed an independent interpretation of an: EKG Critical Care Time Critical Care Time Critical Care Time: Yes Total Critical Care Time: 60 Attestation: I have personally provided critical care time. Time includes review of lab data, radiology results, discussion with consultants, and monitoring for potential decompensation. Intervention performed as documented. Discharge Plan Discharge Clinical Impression: Mobitz type 1 second degree atrioventricular block, Bradycardia Patient Disposition: [facility] Transfer Details: [facility], [facility]. Dr. David Ahmadi Prescriptions: No Action allopurinol 100 mg Tablet 50 mg PO DAILY loratadine 10 mg Tablet 10 mg PO BEDTIME cholecalciferol (vitamin D3) 50 mcg (2,000 unit) Tablet 50 mcg PO DAILY acetaminophen 325 mg Tablet 650 mg PO Q6H PRN (Reason: Pain (Scale Score 1-3)) polyethylene glycol 3350 17 gram Powder In Packet 17 g PO DAILY PRN (Reason: Constipation) loperamide 2 mg Tablet 2 mg PO Q6H PRN (Reason: Diarrhea) famotidine 20 mg Tablet 20 mg PO DAILY calcium carbonate 500 mg calcium (1,250 mg) Tablet 500 mg PO TID PRN (Reason: Stomach Upset) lactase 3,000 unit Tablet 3,000 unit PO QID PRN (Reason: Dairy) Rx Instructions: administer with meals and/or snacks alum-mag hydroxide-simeth [Mag-Al Plus] 200-200-20 mg/5 mL Suspension 30 ml PO TID PRN (Reason: Heartburn) Rx Instructions: administer between meals and at bedtime ondansetron 4 mg Tablet,Disintegrating 4 mg PO Q6H PRN (Reason: Nausea And Vomiting) multivitamin Tablet 1 tab PO DAILY thiamine HCl (vitamin B1) 100 mg Tablet 100 mg PO DAILY clopidogrel 75 mg Tablet 75 mg PO DAILY 90 Days Qty: 90 0RF amlodipine 2.5 mg Tablet 2.5 mg PO DAILY 90 Days Qty: 90 0RF Protocol: Hold for SBP< HOLD for SBP < : 90 atorvastatin 40 mg Tablet 40 mg PO BEDTIME 90 Days Qty: 90 0RF pantoprazole 40 mg tablet,delayed release (DR/EC) 40 mg PO BID tamsulosin [Flomax] 0.4 mg capsule 0.4 mg PO DAILY sertraline 50 mg tablet 50 mg PO DAILY mirtazapine 30 mg tablet 30 mg PO DAILY Print Language: South African
[2024-09-21 16:35] LABS: MANUAL DIFF FLAG NO
[2024-09-21 16:38] LABS: Basophils Absolute Auto 0.1 X10*3/uL (0.0-0.2); Basophils Percent Auto 0.9 % (0-2); Eosinophils Absolute Auto 0.2 X10*3/uL (0.0-0.4); Eosinophils Percent Auto 2.7 % (0-4); Hematocrit 32.8 % (42.0-52.0); Hemoglobin 10.5 g/dl (14.0-18.0); Imm Gran Abs Auto 0.02 X10*3/uL (0.00-0.03); Imm Gran Pct Auto 0.4 % (0.0-0.4); Lymphocytes Absolute Auto 1.4 X10*3/uL (1.2-4.9); Lymphocytes Percent Auto 25.9 % (20-40); Mean Corpuscular Hemoglobin 26.1 pg (27.0-33.0); Mean Corpuscular Volume 81.4 fL (80.0-98.0); Mean Platelet Volume 9.8 fL (9.4-12.4); Monocytes Absolute Auto 0.5 X10*3/uL (0.1-1.2); Monocytes Percent Auto 8.1 % (2-11); Neutrophils Absolute Auto 3.5 x10*3/uL (2.0-8.3); Platelet Count 194 X10*3/uL (160-400); Red Blood Count 4.03 X10*6/uL (4.60-5.80); Red Cell Distribution Width 14.5 % (11.0-16.0); White Blood Count 5.6 X10*3/uL (4.8-10.8)
[2024-09-21 16:56] LABS: Alanine Aminotransferase 15 U/L (0-40); Albumin Level 4.3 g/dL (3.5-5.0); Alkaline Phosphatase 93 U/L (39-117); Anion Gap 16 (12-20); Aspartate Amino Transferase 22 U/L (5-37); Bilirubin Direct 0.2 mg/dL (0.0-0.5); Bilirubin Total 0.5 mg/dL (0.0-1.0); Blood Urea Nitrogen 23 mg/dL (9-16); Carbon Dioxide 22 mmol/L (22-29); Chloride 112 mmol/L (96-108); Creatinine Clr Calc Pharmacy 35.4; Estimated Glomerular Filt Rate 40; Glucose Random 95 mg/dL (60-115); Magnesium 2.3 mg/dL (1.6-2.6); Potassium 4.5 mmol/L (3.3-5.1); Sodium 145 mmol/L (135-145); Total Protein 7.2 g/dL (6.5-8.0)
[2024-09-21 16:58] LABS: B Type Natriuretic Peptide 393 pg/mL (<100); Troponin-I High Sensitivity 18.3 ng/L (<3.5-35.0)
[2024-09-21] MEDS: 0.9 % Sodium Chloride 500 ML 75 ML IVCONT (18:04)
--- NOTE | 2024-09-21 18:31 | PC.NURSE ---
Report given to Giovanna SHEA at [facility] ED
--- OUTSIDE RECORDS SUMMARY | 2024-09-21 19:02 | XMS_ITS | Encounter Summary ---
Author Organization [employer] Address [address] [facility] [address] [place] [address] Care Team Providers Care Collar Turner Name Role Phone Unavailable Primary Care Provider [...]
--- OUTSIDE RECORDS SUMMARY | 2024-09-21 19:02 | XMS_ITS | Encounter Summary ---
Author Organization [employer] Address [address] [facility] [address] [place] [address] Care Team Providers Care Industrial Hygiene Manager Name Role Phone Unavailable Primary Care Provider Unavailabl e Encounter Details Date Type Department Care Team (Late st Contact Info) Description 06/20/2023 Abstract [facility] [address] [place] [address] Robin Pastor, ANEESH [address] [place] [address] Social History Tobacco Use Types Packs/Day Years [...]
--- OUTSIDE RECORDS SUMMARY | 2024-09-21 19:02 | XMS_ITS | Encounter Summary ---
Author Organization [employer] Address [address] [facility] [address] [place] [address] Care Team Providers Care Senior Qa Automation Engineer Name Role Phone Unavailable Primary Care Provider Unavailabl e Encounter Details Date Type Department Care Team (Late st Contact Info) Description 05/03/2023 Abstract [facility] [address] [place] [address] Robin Pastor, ANEESH [address] [facility] [place] [address] Social History Tobacco Use Types Packs/Day Years [...]
--- OUTSIDE RECORDS SUMMARY | 2024-09-21 19:02 | XMS_ITS | Encounter Summary ---
Author Organization [employer] Address [address] [facility] [address] [place] [address] Care Team Providers Care Watershed Tender Name Role Phone Unavailable Primary Care Provider Unavailabl e Encounter Details Date Type Department Care Team (Late st Contact Info) Description 06/20/2023 Abstract [facility] [address] [place] [address] Robin Pastor, ANEESH [address] [facility] [place] [address] Social History Tobacco Use Types Packs/Day Years [...]
--- OUTSIDE RECORDS SUMMARY | 2024-09-21 19:02 | XMS_ITS | Clinical Summary ---
Author Organization [employer] Address [address] [facility] [address] [place] [address] Care Team Providers Care Towboat Captain Name Role Phone Unavailable Primary Care Provider [...]
--- NOTE | 2024-09-21 21:03 | PC.NURSE ---
this rn assumed care of pt @ 1900 pt continues to await transport to [facility]
--- NOTE | 2024-09-21 22:35 | PC.NURSE ---
report given to ems prior to transport report given to lashell harry at [facility] prior to transfer
== END 2024-09-21 22:35 | disposition short-term general hospital (02) ==
PROVIDERS: Emergency Provider Emergency Medicine
DX: I44.1 Atrioventricular block, second degree (principal); I49.9 Cardiac arrhythmia, unspecified; R00.1 Bradycardia, unspecified; R06.02 Shortness of breath; Z79.899 Other long term (current) drug therapy
CPT/HCPCS: 36415; 80048; 80076; 83735; 83880; 84484; 85025; 93005; 99285

== ENCOUNTER → 2024-09-21 16:05 | Outpatient (BNV) | payer MEDICARE, SELFPAY | PROVIDERS: Emergency Provider Emergency Medicine; Visit Provider Internal Medicine Cardiovascular Disease | DX: I49.3 Ventricular premature depolarization (principal); I45.10 Unspecified right bundle-branch block | CPT/HCPCS: 93010 ==

== ENCOUNTER 2024-10-02 07:53 | Outpatient (REF) | payer MEDICARE, SELFPAY ==
[2024-10-02 07:57] LABS: MANUAL DIFF FLAG NO
--- OUTSIDE RECORDS SUMMARY | 2024-10-02 07:58 | XMS_ITS ---
Author Organization [facility] Address [address] [place] [address] Care Team Providers Care Research Fellow Name Role Phone Yari Thais Primary Care Provider Unavaila Lc Samuel Unavailable [phone] Jamison Winn MD Unavailable Unavailable Allergies Allergen [...] Status Risk Notes Problem Gastroesophageal reflux disease (276071176) Chronic GERD (K21.9) Active confirmed Problem Hoffman esophagus (779022178) 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 Problem Alcoholic cirrhosis of liver (312882668) Alcoholic cirrhosis of liver (K70.30) Active confirmed Vital Signs Temperature 97.5 degrees Fahrenheit 07/10/19 24 Blood pressure systolic 000 mm Hg 07/10/19 24 Blood pressure diastolic 00 mm Hg 024 Height 5 ft 9 in in 07/10/2023 Weight 171 lbs 07/10/2023 BMI 25.25 kg/m2 07/10/2023 Encounters Encounter Location Date Provider Diagnosis [facility] [address] [place] [address] 07/10/2023 Lc Avalos Chronic GERD K21.9 ; [...] * CLIFFORD DAVILADOB: [birth year] (77 yo M)Acc No.[id number]:07/10/2023 Progress Notes Patient:?CLIFFORD DAVILA Provider:?Lc Avalos MD :[id number]???Age:77 Y???Sex:Male Vicente e:07/10/2023 Address:[facility], [address] [place] [address] Pcp:Thais Greenberg Subjective: * Chief Complaints: * ???Patient presents today fo r barretts esophagus * HPI: ???incontinence:? I saw Clifford in followup today in regard to his underlying history of gastroesophageal reflux and reported Hoffman's esophagus, as well as gallstones. He was accompanied by Ny, one of his caregivers from the [facility]. ?I met Clifford in the summer [...] Medical History:? * Surgical History:?Prostatect cristina at [facility] * Hospitalization/Major Diagno stic Procedure:?No Hospitalization [...] * Treatment: * Procedure Codes:?1036F TOBAC CO [id number] BP SCR NOT PRFRM REC REASON NOS * Preventive Medicine:? ??Counseling:?Care goal follow-up plan:?Above Normal BMI Follow-up?Giving encouragement to exercise,?BMI management provided?Yes.? * Follow Up:?prn * * Sign off status: Completed true * Provider:?Lc Avalos MD Date:? 024 Generated for Néstor akers/Earle/Zuleimaitting on:?10/02/2024 07:57 AM EDT History and Physical Notes * HPI (History of Present Illness) Category Sub-Category Detail Notes Category Not es incontinence I saw Clifford in followup today in regard to his underlying history of gastroesophageal reflux and reported Hoffman's esophagus, as well as gallstones. He was accompanied by Ny, one of his caregivers from the [facility]. I met Clifford in the Summer of 2021 when he was hospitalized for gallstones and cholecystitis. This was treated with antibiotics as Dr. Moreira felt the case was mild and felt that [facility] was a high surgical risk. He [...]
--- OUTSIDE RECORDS SUMMARY | 2024-10-02 07:58 | XMS_ITS | Encounter Summary ---
Author Organization [facility] Address [address] [place] [address] Care Team Providers Care Sweatband Drummer Name Role Phone Unavailable Primary Care Provider Unavailabl e Reason for Visit * Reason Onset Date Comments Remote Patient Monitoring 09/28/2024 Encounter Details Date Type Department Care Team (Late st Contact Info) Description 09/28/2024 Telephone [facility] [place] [address] [facility] [address] [place] [address] Lonnie Mehta MD [address] [facility] [address] [place] [address] Remote Patient Monitoring Social History Tobacco Use Types Packs/Day Years Used Date Smoking Tobacco: Never Smokeless Tobacco: Never Alcohol Use Standard Drinks/Week Comments Not Currently 0 (1 standard drink = 0.6 oz pur e alcohol) [facility] Utilities Answer Date Recorded In the past 12 months has [employer], gas, oil, or water [email or web address] threatened to shut off services in your home? Patient unable to answer 09/22/2024 AUDIT-C Answer Date Recorded Q1: How often do you have a drink containing alcohol? Never 09/22/2024 Q2: How many drinks containi ng alcohol do you have on a typical day when you are drinking? Patient does not drink Q3: How often do you have si x or more drinks on one occasion? Never 09/22/2024 Overall Financial Resource Strain (CARDIA) Answe r Date Recorded How hard is it for you to pa y for the very basics like food, housing, medical care, and heating? Not hard at all 09/22/2024 Hunger Vital Sign Answer Date Recorded Within the past 12 months, y ou worried that your food would run out before you got the money to buy more. Patient unable to answer 09/22/2024 Within the past 12 months, t he food you bought just didn't last and you didn't have money to get more. Patient unable to answer 09/22/2024 PRAPARE - Transportation Answer Date Re corded In the past 12 months, has l ack of transportation kept you from medical appointments or from getting medications? Patient unable to answer 09/22/2024 In the past 12 months, has l ack of transportation kept you from meetings, work, or from getting things needed for daily living? Patient unable to answer 09/22/2024 Housing Stability Vital Sign Answer Vicente e Recorded In the last 12 months, was t here a time when you were not able to pay the mortgage or rent on time? Patient unable to answer 09/22/2024 In the past 12 months, how m any times have you moved where you were living? 0 09/22/2024 At any time in the past 12 m [facility], were you homeless or living in a skilled nursing (including now)? Patient unable to answer 09/22/2024 Sex and Gender Information Value Date Recorded Sex Assigned at Male 09/22/2024 1:25 AM EDT Legal Sex Male 6:56 PM EST Gender Identity Male 09/22/2024 1:25 AM EDT Sexual Orientation Other 09/22/2024 1: 25 AM EDT documented as of this encounter Miscellaneous Notes * Telephone Encounter - Reyna Brar MA - 09/30/2024 2:31 PM EDT The initial transmission was successfully received. * Telephone Encounter - Marva Richardson MA - 09/30/2024 10:19 AM EDT SHABBIR Oh from [facility] called the team today to inform us that patient's transmission was sent. Unfortunately, it was not received and they will need to repeat it. They will go ahead and send.Althea has stated that the patient will be transferring his cardiac care to his new physician, Dr. Damon, within the next 2-3 weeks and they should be reaching out for records at that time. Ab ana to be monitored for UTD transmission and we will transfer the patient to his new provider whenappropriate. * Telephone Encounter - Reyna Brar MA - 09/30/2024 8:43 AM EDT I called [facility] without success. I then tried contacting Mr. Ashby's nurse becausewe haven't received the initial transmission for the patient. We will continue to check the websitefor it. * Telephone Encounter - Reyna Brar MA - 09/28/2024 1:45 PM EDT Post Implant Remote Monitoring call to patient: Date of Implant: 09/24/2024 Implanted device: AV block Implanting Physician: Dr. Mehta Walked patient through initial device transmission post-discharge. Provided patient with an overview of the following: You have been provided with a remote monitoring system from your cardiac device company. Please keep the remote monitor plugged in, next to where you sleep at night, at all times. Your remote monitor at your beside will collect information nightly from your implanted device and transmit to the website IF an alert-able event has occurred or it is a scheduled remote transmissionrequested by our clinic. If an event has occurred and action is required you will be called by our remote monitoring team. If the scheduled remote device transmission report is not received, someone from our remote monitoring team will call you. ? Please call our office and ask to speak with one of our triage nurses, or your general blanket winder helper, if you are experiencing cardiac-related symptoms and send a manual transmission using your remote monitor. ? If you send a manual remote transmission due to concerns over the functioning of your device, please notify a member of our remote monitoring team. You are not required to take the monitor with you when you go on vacation, or out of town for shortperiods of time, i.e less than 2 weeks. If you are staying at another location in the continental [place] for an extended period of time, you should set up your monitor at the new location and notify the remote monitoring team. If you experience symptoms while you are out of town, you should seek medical attention at the nearest hospital. Please keep your device registration card in your wallet. Given office phone number to contact remote monitoring team. Given device company tech support contact information. Patient expresses clear understanding of remote monitoring. Patient knows to call with any questions, concerns, or change in their clinical status. Confirmed remote device website enrollment. Confirmed [employer] enrollment. Confirmed remote connectivity. Confirmed routine remote schedule established. documented in this encounter Plan of Treatment Upcoming Encounters Date Type Department Care Team (Late st Contact Info) Description 10/27/2024 1:15 PM EDT Appointment [facility] [place] [address] [facility] [address] [place] [phone] Lonnie Mehta MD [address] [facility] [address] [place], [place] [phone] documented as of this encounter Visit Diagnoses Not on filedocumented in this encounter
--- OUTSIDE RECORDS SUMMARY | 2024-10-02 07:58 | XMS_ITS | Encounter Summary ---
Author Organization [facility] Address [address] [place] [address] Care Team Providers Care Industrial Psychologist Name Role Phone Unavailable Primary Care Provider Unavailabl e Reason for Visit * Reason Onset Date Comments Advice Only 09/28/2024 Encounter Details Date Type Department Care Team (Late st Contact Info) Description 09/28/2024 Telephone [facility] Heart & Vascular [place] [address] [place] [address] Lonnie Mehta MD [address] [id number] Advice Only Social History Tobacco Use Types Packs/Day Years Used Date Smoking Tobacco: Never Smokeless Tobacco: Never Alcohol Use Standard Drinks/Week Comments Not Currently 0 (1 standard drink = 0.6 oz pur e alcohol) [facility] Utilities Answer Date Recorded In the past 12 months has [employer], gas, oil, or water [employer] threatened to shut off services in your [...] any time in the past 12 m [facility], were you homeless or living in a group home (including now)? Patient unable to answer 09/22/2024 Sex and Gender Information Value Date Recorded Sex Assigned at Male 09/22/2024 1:25 AM EDT Legal Sex Male 6:56 PM EST Gender Identity Male 09/22/2024 1:25 AM EDT Sexual Orientation Other 09/22/2024 1: 25 AM EDT documented as of this encounter Miscellaneous Notes * Telephone Encounter - Juanita Cuba APRN - 09/28/2024 1:07 PM EDT Confirmed with Alexandro HERNANDEZ that I would recommend Doxy 100 mg BID x 5 days. [facility] * Telephone Encounter - Juanita Cuba APRN - 09/28/2024 12:41 PM EDT Noted rash on Keflex. Now listed as allergy. Recommend 5 day course of Doxycyline 100 mg BID. LM atthe [facility] to have RN/CARD STRIPPER call me to discuss. * Telephone Encounter - Modesta Howard RN - 09/28/2024 11:14 AM EDT Spoke to Alexandro HERNANDEZ at [facility]. Reported that patient developed a generalized body rash and Keflex was d/c'd 09/27. She was advised that I would let Dr Mehta know that he had not completed the full course of Keflex and if he wanted the ABX changed I would let her know. * Telephone Encounter - Modesta Howard RN - 09/28/2024 11:08 AM EDT LM for Alexandro HERNANDEZ [phone] to call back to discuss patient PPM care. documented in this encounter Plan of Treatment Upcoming Encounters Date Type Department Care Team (Late st Contact Info) Description 10/27/2024 1:15 PM EDT Appointment [facility] Heart & Vascular [place] [address] [facility] [address] [place] [address] Lonnie Mehta MD [address] [place], [place] [phone] documented as of this encounter Visit Diagnoses Not on filedocumented in this encounter
--- OUTSIDE RECORDS SUMMARY | 2024-10-02 07:58 | XMS_ITS | Encounter Summary ---
Author Organization [employer] Address [address] [facility] 7t [place] [address] Care Team Providers Care Buffing And Sueding Machine Operator Name Role Phone Unavailable Primary Care Provider Unavailabl e Encounter Details Date Type Department Care Team (Late st Contact Info) Description 05/03/2023 Abstract [facility] DENTAL [address] [place] [address] Robin Pastor, ANEESH [address] [place] [address] Social History Tobacco Use Types Packs/Day Years [...]
--- OUTSIDE RECORDS SUMMARY | 2024-10-02 07:58 | XMS_ITS ---
Author Organization [facility] Address [address] [place] [address] Care Team Providers Care Material Handling Warehouse Supervisor Name Role Phone Thais Greenberg Primary Care Provider Unavaila Lc Samuel Unavailable [phone] Tatum MURRELL, Jamison Blood Unavailable REASON FOR VISIT barretts esophagus Encounters Encounter Location Date Provider Diagnosis [facility] [address] [place] [phone] 10/30/2023 Lc Avalos Plan Of Treatment No Information Progress Notes * MARIANNE DAVILADOB: (79 yo M)Acc No.[id number]:10/30/2023 Progress Notes Patient:?MARIANNE DAVILA Provider:?Lc Avalos MD :[id number]???Age:78 Y???Sex:Male Vicente e:10/30/2023 Address:[address] [place], [address] [place], [place] [phone] Pcp:Thais Greenberg Subjective: * Chief Complaints: * [...] Date:? 024 Generated for Néstor akers/Earle/Zuleimaitting on:?10/02/2024 07:58 AM EDT
--- OUTSIDE RECORDS SUMMARY | 2024-10-02 07:58 | XMS_ITS | Encounter Summary ---
Author Organization [facility] Address [address] [place] [address] Care Team Providers Care Bank Compliance Officer Name Role Phone Unavailable Primary Care Provider Unavailabl e Encounter Details Date Type Department Care Team (Latest Contact Info) Description 09/21/2024 Hospital Encounter Social History Tobacco Use Types Packs/Day Years Used Date Smoking Tobacco: Never Smokeless Tobacco: Never Alcohol Use Standard Drinks/Week Comments Not Currently 0 (1 standard drink = 0.6 oz pur e alcohol) [facility] Utilities Answer Date Recorded In the past 12 months has th e [employer], gas, oil, or water [employer] threatened to shut off services in your [...] any time in the past 12 m [place], were you homeless or living in a custodial (including now)? Patient unable to answer 09/22/2024 Sex and Gender Information Value Date Recorded Sex Assigned at Male 09/22/2024 1:25 AM EDT Legal Sex Male 6:56 PM EST Gender Identity Male 09/22/2024 1:25 AM EDT Sexual Orientation Other 09/22/2024 1: 25 AM EDT documented as of this encounter Functional Status * Audit-C Score Answer Date of Assessment Author 0 09/22/2024 5:00 AM EDT Sherin Claudio RN * Question Answer Date of Assessment Author Q1: How often do you have a drink containing alcohol? Never 09/22/2024 5:00 AM EDT Sherin Claudio RN Q2: How many drinks containing alcohol do you have on a typical day when you are drinking? Patient does not drink 09/22/2024 5:00 AM EDT Sherin Claudio RN Q3: How often do you have six or more drinks on one occasion? Never 09/22/2024 5:00 AM EDT Sherin Claudio RN documented as of this encounter Plan of Treatment Upcoming Encounters Date Type Department Care Team (Late st Contact Info) Description 10/27/2024 1:15 PM EDT Appointment [facility] Heart & Vascular [place] [address] [facility] [address] [place] [address] Lonnie Mehta MD [address] [place] [address] [place], [place] [phone] documented as of this encounter Visit Diagnoses Not on filedocumented in this encounter
--- OUTSIDE RECORDS SUMMARY | 2024-10-02 07:58 | XMS_ITS | Encounter Summary ---
Author Organization [employer] Address [address] [facility] 7[address] [place] [address] Care Team Providers Care Occupational Therapist'S Assistant Name Role Phone Unavailable Primary Care Provider Unavailabl e Encounter Details Date Type Department Care Team (Late st Contact Info) Description 06/20/2023 Abstract [facility] DENTAL [address] [place] [address] Robin Pastor, ANESEH [address] [place] [address] Social History Tobacco Use Types Packs/Day Years [...]
--- OUTSIDE RECORDS SUMMARY | 2024-10-02 07:58 | XMS_ITS | Clinical Summary ---
Author Organization [employer] Address [address] [facility] [address] [place] [address] Care Team Providers Care Technical Applications Scientist Name Role Phone Unavailable Primary Care Provider [...]
--- OUTSIDE RECORDS SUMMARY | 2024-10-02 07:58 | XMS_ITS | Patient Health Record ---
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 Problem Gastroesophageal reflux disease (672066261) Chronic GERD (K21.9) Active confirmed Plan Of Treatment No Information Insurance Providers Payer Name Payer Address Payer Phone Subscriber Number Group Number Insured Name Patient Relationship to Insured Coverage Start Date Coverage End Date MEDICARE OF [employer] [address] [place] [id number] MARIANNE DAVILA Self - patient is the insured Medical (General) History Medical History History ICD Code Coronary artery disease with previous PR GERD was reported Hoffman's esophagus, although I [...] Surgery Date(Month/Year) [facility]
--- OUTSIDE RECORDS SUMMARY | 2024-10-02 07:58 | XMS_ITS | Encounter Summary ---
Author Organization [employer] Address [address] [facility] [address] [place] [address] Care Team Providers Care Lehr Operator Name Role Phone Unavailable Primary Care Provider Unavailabl e Encounter Details Date Type Department Care Team (Latest Contact Info) Description 01/03/2022 Abstract [facility] Dental, Provider, DDS Social History Tobacco [...]
--- OUTSIDE RECORDS SUMMARY | 2024-10-02 07:58 | XMS_ITS ---
Author Name [facility] Organization Unknown Results Test Name/Text Value Interpretation Date Range Source Sodium SerPl-sCnc 144mmol/L Normal [id number] 136 - 145 [facility] CO2 SerPl-sCnc 24mmol/L Normal [id number] 20 - 31 HH CCT BUN/Creat SerPl 11Ratio Normal [id number] 10 - 25 H [facility]CT Chloride SerPl-sCnc 111mmol/L Above high normal [id number] 98 - 107 [facility] Glucose SerPl-mCnc 86mg/dL Normal [id number] 74 - 106 [facility] Creat SerPl-mCnc 1.8mg/dL Above high normal [id number] 0. 7 - 1.3 [facility]CT BUN SerPl-mCnc 20mg/dL Normal [id number] 9 - 23 HH CCT Calcium SerPl-mCnc 8.8mg/dL Normal [id number] 8.7 - 10 .5 H[facility]CT Potassium SerPl-sCnc 4.4mmol/L Normal [id number] 3.4 - 4.5 [facility] Anion Gap Bld-sCnc 8 Normal [id number] 5 - 15 H[facility]CT GFR/BSA.pred SerPlBld [id number] 38 Below low normal [id number] 59 - HHCCT Magnesium SerPl-mCnc 2mg/dL Normal [id number] 1.6 - 2.6 H[facility]CT Folate SerPl-mCnc 12.9ng/mL Normal [id number] 7.2 - HHCCT Calcium SerPl-mCnc 8.7mg/dL Normal [id number] 8.7 - 10 .5 H[facility]CT Sodium SerPl-sCnc 145mmol/L Normal [id number] 136 - 145 [facility]CT Globulin Ser Calc-mCnc 2.1g/dL Normal [id number] 1.5 - 3.9 H[facility]CT CO2 SerPl-sCnc 24mmol/L Normal [id number] 20 - 31 HH CCT GFR/BSA.pred SerPlBld [id number] 40 Below low normal [id number] 59 - HHCCT Anion Gap Bld-sCnc 8 Normal [id number] 5 - 15 [facility]CT BUN SerPl-mCnc 20mg/dL Normal [id number] 9 - 23 HH CCT Albumin SerPl-mCnc 4g/dL Normal [id number] 3.4 - 4. 8 H[facility]CT Potassium SerPl-sCnc 4.1mmol/L Normal [id number] 3.4 - 4.5 H[facility]CT Bilirub SerPl-mCnc 0.5mg/dL Normal [id number] 0.3 - 1. 2 HHCCT Prot SerPl-mCnc 6.1g/dL Normal [id number] 5.7 - 8.2 H HCCT Albumin/Glob SerPl 1.9Ratio Normal [id number] 1.5 - 2. 5 H[facility]CT BUN/Creat SerPl 12Ratio Normal [id number] 10 - 25 H HCCT AST SerPl-cCnc 18U/L Normal [id number] - 34 HH CCT ALP SerPl-cCnc 85U/L Normal [id number] 45 - 128 HH CCT Chloride SerPl-sCnc 113mmol/L Above high normal [id number] 98 - 107 H[facility]CT Glucose SerPl-mCnc 87mg/dL Normal [id number] 74 - 106 HHCCT ALT SerPl-cCnc 10U/L Normal [id number] 10 - 49 HH CCT Creat SerPl-mCnc 1.7mg/dL Above high normal [id number] 0. 7 - 1.3 HHCCT Magnesium SerPl-mCnc 2.1mg/dL Normal [id number] 1.6 - 2.6 H[facility]CT Platelet num Bld Auto 169Thou/uL Normal [id number] 150 - 450 H[facility]CT Imm Granulocytes/leuk NFr Bld Auto 0.4% Normal [id number] HHCCT Lymphocytes/leuk NFr Bld Auto 29.3% Normal [id number] HHCCT MCH RBC Qn Auto 26pg Below low normal [id number] 27 - 31 H[facility]CT Neutrophils/leuk NFr Bld Auto 55.5% Normal [id number] HHCCT MCHC RBC Auto-mCnc 31.8g/dL Normal [id number] 30 - 36 HHCCT RBC num Bld Auto 3.5Mil/uL Below low normal [id number] 4.5 - 6.2 HHCCT Basophils num Bld Auto 0.03Thou/uL Normal [id number] 0 - 0.2 HHCCT Hct VFr Bld Auto 28.6% Below low normal [id number] 39 - 54 HHCCT Eosinophil/leuk NFr Bld Auto 2.6% Normal [id number] HHCCT Basophils/leuk NFr Bld Auto 0.6% Normal [id number] HHCCT PMV Bld Auto 10.3fL Normal [id number] 7.5 - 12.[address] WBC num Bld Auto 5.1Thou/uL Normal [id number] 4 - 11 HHCCT Imm Granulocytes num Bld Auto 0.02Thou/uL Normal [id number] 0 - 0.1 HHCCT Lymphocytes num Bld Auto 1.49Thou/uL Below low normal [id number] 1.5 - 4.5 HHCCT Monocytes num Bld Auto 0.59Thou/uL Normal [id number] 0. 2 - 1.5 HHCCT Neutrophils num Bld Auto 2.83Thou/uL Normal [id number] 2 - 7.5 HHCCT Eosinophil num Bld Auto 0.13Thou/uL Normal [id number] 0 - 0.7 HHCCT Monocytes/leuk NFr Bld Auto 11.6% Normal [id number] HHCCT RDW RBC Auto-Rto 14.5% Normal [id number] 11.5 - 14. 5 HHCCT MCV RBC Auto 82fL Normal [id number] 80 - 100 HHCC T Hgb Bld-mCnc 9.1g/dL Below low normal [id number] 13 - 17 .7 HHCCT UIBC SerPl-mCnc 320ug/dL Normal [id number] H HCCT Iron SerPl-mCnc 26ug/dL Below low normal [id number] 65 - 175 HHCCT Iron Satn MFr SerPl 8% Below low normal [id number] 20 - 50 HHCCT TIBC SerPl-mCnc 346ug/dL Normal [id number] 250 - 425 H HCCT Neutrophils/leuk NFr Bld Auto 63.9% Normal [id number] HHCCT Basophils/leuk NFr Bld Auto 0.6% Normal [id number] HHCCT MCV RBC Auto 82fL Normal [id number] 80 - 100 HHCC T Basophils num Bld Auto 0.03Thou/uL Normal [id number] 0 - 0.2 HHCCT Hct VFr Bld Auto 29.9% Below low normal [id number] 39 - 54 HHCCT Neutrophils num Bld Auto 3.01Thou/uL Normal [id number] 2 - 7.5 HHCCT Monocytes num Bld Auto 0.44Thou/uL Normal [id number] 0. 2 - 1.5 HHCCT RBC num Bld Auto 3.64Mil/uL Below low normal [id number] 4. 5 - 6.2 HHCCT Eosinophil/leuk NFr Bld Auto 2.1% Normal [id number] HHCCT Imm Granulocytes num Bld Auto 0.01Thou/uL Normal [id number] 0 - 0.1 HHCCT RDW RBC Auto-Rto 14.4% Normal [id number] 11.5 - 14. 5 HHCCT Eosinophil num Bld Auto 0.1Thou/uL Normal [id number] 0 - 0.7 HHCCT Hgb Bld-mCnc 9.3g/dL Below low normal [id number] 13 - 17 .7 HHCCT Lymphocytes num Bld Auto 1.13Thou/uL Below low normal [id number] 1.5 - 4.5 HHCCT MCH RBC Qn Auto 25.5pg Below low normal [id number] 27 - 31 HHCCT Imm Granulocytes/leuk NFr Bld Auto 0.2% Normal [id number] HHCCT PMV Bld Auto 10.3fL Normal [id number] 7.5 - 12.[address] MCHC RBC Auto-mCnc 31.1g/dL Normal [id number] 30 - 36 H[facility]CT Monocytes/leuk NFr Bld Auto 9.3% Normal [id number] H[facility]CT Platelet num Bld Auto 182Thou/uL Normal [id number] 150 - 450 HHCCT WBC num Bld Auto 4.7Thou/uL Normal [id number] 4 - 11 H[facility]CT Lymphocytes/leuk NFr Bld Auto 23.9% Normal [id number] HHCCT Ferritin SerPl-mCnc 11ug/L Normal [id number] 11 - 30 7 HHCCT Vit B12 SerPl-mCnc 604pg/mL Normal [id number] 211 - 91 1 HHCCT Retics/100 RBC NFr Auto 1.4% Normal [id number] 0.7 - 2 H[facility]CT Immature Reticulocyte Fraction 16% Above high normal [id number] 2.3 - 15.9 HHCCT Retics num Auto 47.6Thou/uL Normal [id number] 30 - 100 HHCCT Hgb Retic Qn Auto 22.6pg Below low normal [id number] 28 - 35 H[facility]CT Reticulocyte production index 0.8% Below low normal [id number] 1 - 2 HHCCT Magnesium SerPl-mCnc 2.1mg/dL Normal [id number] 1.6 - 2.6 HHCCT Phosphate SerPl-mCnc 2.7mg/dL Normal [id number] 2.4 - 5.1 HHCCT TSH SerPl DL<=0.005 mIU/L-aCnc 1.72mIU/L Normal [id number] 0.48 - 4.17 HHCCT Anion Gap Bld-sCnc 10 Normal [id number] 5 - 15 HHCCT Chloride SerPl-sCnc 113mmol/L Above high normal [id number] 98 - 107 HHCCT Sodium SerPl-sCnc 145mmol/L Normal [id number] 136 - 145 HHCCT Potassium SerPl-sCnc 4.1mmol/L Normal [id number] 3.4 - 4.5 HHCCT GFR/BSA.pred SerPlBld HWK-[id number] 43 Below low normal [id number] 59 - HHCCT CO2 SerPl-sCnc 22mmol/L Normal [id number] 20 - 31 HH CCT Creat SerPl-mCnc 1.6mg/dL Above high normal [id number] 0. 7 - 1.3 HHCCT Glucose SerPl-mCnc 93mg/dL Normal [id number] 74 - 106 H[facility]CT BUN/Creat SerPl 12Ratio Normal [id number] 10 - 25 H HCCT Calcium SerPl-mCnc 8.7mg/dL Normal [id number] 8.7 - 10 .5 HHCCT BUN SerPl-mCnc 19mg/dL Normal [id number] 9 - 23 HH CCT MCV RBC Auto 82fL Normal [id number] 80 - 100 HHCC T MCHC RBC Auto-mCnc 30.6g/dL Normal [id number] 30 - 36 HHCCT WBC num Bld Auto 5.1Thou/uL Normal [id number] 4 - 11 HHCCT RBC num Bld Auto 3.42Mil/uL Below low normal [id number] 4. 5 - 6.2 HHCCT PMV Bld Auto 9.8fL Normal [id number] 7.5 - 12.[address] Platelet num Bld Auto 158Thou/uL Normal [id number] 150 - 450 HHCCT Hct VFr Bld Auto 28.1% Below low normal [id number] 39 - 54 HHCCT MCH RBC Qn Auto 25.1pg Below low normal [id number] 27 - 31 HHCCT RDW RBC Auto-Rto 14.4% Normal [id number] 11.5 - 14. 5 HHCCT Hgb Bld-mCnc 8.6g/dL Below low normal [id number] 13 - 17 .7 HHCCT History of Medication Use Medication Directions Dispensed Refills Start Date End Date Stat amiODARONE (PACERONE) 200 MG tablet Take 1 tablet (200 mg total) by mouth daily. Do not start before September 30, 2024. 09/30/2024 active amiODARONE (PACERONE) 400 MG tablet Take 1 tablet (400 mg total) by mouth 2 (two) times a day. 09/25/2024 active cephALEXin (KEFLEX) 500 MG capsule Take 1 capsule (500 mg total) by mouth every 8 (eight) hours around the clock. 09/25/2024 active ferrous gluconate (FERGON) 324 MG tablet Take 1 tablet (324 mg total) by mouth every morning with breakfast. Take 2 hours before or 4 hours after acid reducers. 09/25/2024 active metoPROLOL SUCCINATE (TOPROL-XL) 25 MG 24 hr tablet Take 1 tablet (25 mg total) by mouth daily. 09/25/2024 active Acetaminophen (TYLENOL) 325 MG Cap Take 650 mg by mouth daily as needed (pain). active allopurinol (ZYLOPRIM) 100 mg tablet Take 1 tablet (100 mg total) by mouth every 24 hours. active aluminum-magnesium hydroxide-simethicone (MYLANTA) suspension Take 30 mL by mouth 3 (three) times a day as needed for heartburn. active amLODIPine (NORVASC) 2.5 MG tablet Take 1 tablet (2.5 mg total) by mouth daily. active atorvastatin (LIPITOR) 40 MG tablet Take 1 tablet (40 mg total) by mouth daily. active calcium carbonate (TUMS) 500 MG chewable tablet Chew 1 tablet (500 mg total) 3 (three) times a day as needed for indigestion or heartburn. active cholecalciferol (VITAMIN D3) 1000 units capsule Take 2 capsules (2,000 Units total) by mouth daily. active clopidogrel (PLAVIX) 75 MG tablet Take 1 tablet (75 mg total) by mouth every 24 hours. active famotidine (PEPCID) 20 MG tablet Take 1 tablet (20 mg total) by mouth daily. active folic acid (FOLVITE) 1 MG tablet Take 1 tablet (1,000 mcg total) by mouth every 24 hours. active loperamide (IMODIUM A-D) 2 MG tablet Take 1 tablet (2 mg total) by mouth 4 times daily (every 6 hours) as needed for diarrhea. active loratadine (CLARITIN) 10 MG tablet Take 1 tablet (10 mg total) by mouth every 24 hours. active mirtazapine (REMERON) 15 MG tablet Take 2 tablets (30 mg total) by mouth every 24 hours. active multivitamin Tab tablet Take 1 tablet by mouth daily. active ondansetron (ZOFRAN) 4 MG tablet Take 1 tablet (4 mg total) by mouth 4 times daily (every 6 hours) as needed for nausea or vomiting. active PANTOprazole (PROTONIX) 40 MG EC tablet Take 1 tablet (40 mg total) by mouth every 24 hours. active sertraline (ZOLOFT) 50 MG tablet Take 1 tablet (50 mg total) by mouth daily. active tamsulosin (FLOMAX) 0.4 MG capsule Take 1 capsule (0.4 mg total) by mouth daily. active thiamine 100 mg tablet Take 1 tablet (10 0 mg total) by mouth daily. active Problems Problem Status Onset Date Problem Type Date of Resoluti on Source AV block active 2024-09-22 ProblemAct [facility] Bradycardia active 2024-09-22 ProblemAct [facility] Encounters Encounter Type Encounter Reason Primary Diagnosis Location Date Inpatient Atrioventricular block, complete Atrioventricular block, complete [facility] Organization Name Specialty Phone Email Start Date End [facility] 09/22/2024 [facility] 09/21/2024
--- OUTSIDE RECORDS SUMMARY | 2024-10-02 07:58 | XMS_ITS | Clinical Summary ---
Author Organization [facility] Address [address] [place] [id number] Care Team Providers Care General Farmer Name Role Phone Unavailable Primary Care Provider Unavailabl e Allergies Active Allergy Reactions Criticality Noted Date Comments Baclofen Unknown/Patient and Family Unable to Define Medium 10/26/2020 Cephalexin Rash/Dermatitis Low 09/28/2024 Lisinopril Unknown/Patient and Family Unable to Define Medium 10/26/2020 Shellfish-Derived Products Unknown/Patie nt and Family Unable to Define Medium 10/03/2022 Medications Acetaminophen (TYLENOL) 325 MG Cap Take 650 mg by mouth daily as needed (pain). Active allopurinol (ZYLOPRIM) 100 mg tablet Take 1 tablet (100 mg total) by mouth every 24 hours. Active aluminum-magnes ium hydroxide-simet hicone (MYLANTA) suspension Take 30 mL by mouth 3 (three) times a day as needed for heartburn. Active cholecalciferol (VITAMIN D3) 1000 units capsule Take 2 capsules (2,000 Units total) by mouth daily. Active clopidogrel (PLAVIX) 75 MG tablet Take 1 tablet (75 mg total) by mouth every 24 hours. Active loperamide (IMODIUM A-D) 2 MG tablet Take 1 tablet (2 mg total) by mouth 4 times daily (every 6 hours) as needed for diarrhea. Active loratadine (CLARITIN) 10 MG tablet Take 1 tablet (10 mg total) by mouth every 24 hours. Active ondansetron (ZOFRAN) 4 MG tablet Take 1 tablet (4 mg total) by mouth 4 times daily (every 6 hours) as needed for nausea or vomiting. Active PANTOprazole (PROTONIX) 40 MG EC tablet Take 1 tablet (40 mg total) by mouth every 24 hours. Active folic acid (FOLVITE) 1 MG tablet Take 1 tablet (1,000 mcg total) by mouth every 24 hours. Active mirtazapine (REMERON) 15 MG tablet Take 2 tablets (30 mg total) by mouth every 24 hours. Active atorvastatin (LIPITOR) 40 MG tablet Take 1 tablet (40 mg total) by mouth daily. Active amLODIPine (NORVASC) 2.5 MG tablet Take 1 tablet (2.5 mg total) by mouth daily. Active calcium carbonate (TUMS) 500 MG chewable tablet Chew 1 tablet (500 mg total) 3 (three) times a day as needed for indigestion or heartburn. Active famotidine (PEPCID) 20 MG tablet Take 1 tablet (20 mg total) by mouth daily. Active multivitamin Tab tablet Take 1 tablet by mouth daily. Active sertraline (ZOLOFT) 50 MG tablet Take 1 tablet (50 mg total) by mouth daily. Active thiamine 100 mg tablet Take 1 tablet (100 mg total) by mouth daily. Active tamsulosin (FLOMAX) 0.4 MG capsule Take 1 capsule (0.4 mg total) by mouth daily. Active metoPROLOL SUCCINATE (TOPROL-XL) 25 MG 24 hr tabletIndicatio ns:Third degree heart block (HCC),Bradycard ia Take 1 tablet (25 mg total) by mouth daily. 5 10/26/19 25 Active amiODARONE (PACERONE) 400 MG tabletIndicatio ns:Third degree heart block (HCC),Bradycard ia Take 1 tablet (400 mg total) by mouth 2 (two) times a day. 5 Active amiODARONE (PACERONE) 200 MG tabletIndicatio ns:Third degree heart block (HCC),Bradycard ia Take 1 tablet (200 mg total) by mouth daily. Do not start before September 30, 2024. 5 10/31/19 25 Active cephALEXin (KEFLEX) 500 MG capsuleIndicati ons:Third degree heart block (HCC),Bradycard ia Take 1 capsule (500 mg total) by mouth every 8 (eight) hours around the clock. 5 10/03/19 25 Active ferrous gluconate (FERGON) 324 MG tabletIndicatio ns:Third degree heart block (HCC) Take 1 tablet (324 mg total) by mouth every morning with breakfast. Take 2 hours before or 4 hours after acid reducers. 10/26/19 25 Active Active Problems Problem Noted Date Diagnosed Date Bradycardia 09/22/2024 AV block 09/22/2024 Encounters Date Type Department Care Team Description 09/28/2024 Telephone Surgery [facility] [address] [phone] Lonnie Mehta MD Remote Patient Monitoring 09/28/2024 Telephone [facility] [address] [place] [address] Lonnie Mehta MD Advice Only 09/24/2024 11:40 AM EDT Anesthesia Event [facility] Vascular [facility] - Electrophysiology Laboratory [address] [place] [phone] Emily Castro MD 09/24/2024 11:18 AM EDT - 09/24/2024 1:35 PM EDT Surgery [facility] - Electrophysiology Laboratory [address] [place] [phone] Lonnie Mehta MD Implantation of dual-chamber pacemaker w/dual lead; [id number] 09/22/2024 12:09 AM EDT - 09/25/2024 3:00 PM EDT Hospital Encounter [facility] [address] [phone] Armando Pedroza MD James, MD Carmina Wilkes, MD Samreen Basurto Giselle Sacha, MD Third degree heart block (HCC) (Primary Dx); AV block; Bradycardia Discharge Disposition: Care Home Facility 09/22/2024 Travel 09/21/2024 Hospital Encounter from Last 3 Months Social History Tobacco Use Types Packs/Day Years Used Date Smoking Tobacco: Never Smokeless Tobacco: Never Tobacco Cessation:Counseling Given: Not Answered Alcohol Use Standard Drinks/Week Comments Not Currently 0 (1 standard drink = 0.6 oz pur e alcohol) [facility] Utilities Answer Date Recorded In the past 12 months has th e electric, gas, oil, or water company threatened to shut off services in your [...] any time in the past 12 m [facility], were you homeless or living in a custodial (including now)? Patient unable to answer 09/22/2024 Sex and Gender Information Value Date Recorded Sex Assigned at Male 09/22/2024 1:25 AM EDT Legal Sex Male 6:56 PM EST Gender Identity Male 09/22/2024 1:25 AM EDT Sexual Orientation Other 09/22/2024 1: 25 AM EDT Last Filed Vital Signs Vital Sign Reading Time Taken Comments Blood Pressure 108/58 09/25/2024 1:00 PM EDT Pulse 62 09/25/2024 11:00 AM EDT Temperature 36.7 ??C (98.1 ??F) 09/25/2024 1 1:00 AM EDT Respiratory Rate 18 09/25/2024 11:0 0 AM EDT Oxygen Saturation 95% 09/25/2024 11: 00 AM EDT Inhaled Oxygen Concentration - - Weight 69.9 kg (154 lb 1.6 oz) 09/22/2024 5:04 AM EDT Simultaneous filing. User may not have seen previous data. Height 172.7 cm (5' 8 ) 09/22/2024 5:04 AM EDT Simultaneous filing. User may not have seen previous data. Body Mass Index 23.43 09/22/2024 5:04 AM EDT Plan of Treatment Upcoming Encounters Date Type Department Care Team (Late Contact Info) Description 10/27/2024 1:15 PM EDT Appointment [facility] [place] [facility] [address] [facility] [address] [place] [address] Lonnie Mehta MD [address] [facility] [address] [place] [address] Health Maintenance Due Date Last Done Comments DTaP/Tdap/Td Vaccines (1 - Tdap) 09/28/1962 Pneumococcal Vaccines 50+ (1 of 2 - PCV) 09/28/1962 Zoster (Shingles) Vaccine (1 of 2) 09/28/1993 RSV Vaccine 60 years and old er and Patients (1 - 1-dose 75+ series) 09/28/2018 COVID-19 Vaccine (1 - 2023-2 5 season) 2024 Influenza Vaccine 12/25/2024 Hepatitis B Vaccines Aged Out No long er eligible based on patient's age to complete this topic Medical Devices Implanted Type Area Cryptoanalysis Teacher Device Identifier Shelf Expiration Date Model / Serial / Lot [id number] Lead Pacing 58cm 6fr Hlx Ecrdm Bipolar Actfx Xtd Is 1 Tndrl - [id number] Implanted:Qty : 1 on 09/24/2024 by Lonnie Mehta MD at [facility] Lead N/A: Heart [employer] [id number] 06/26/20272087TC/58 / [id number] / Lead Pacing 52cm 6fr Hlx Ecrdm Bipolar Actfx Is-1 Conn Xtd - [id number] Implanted:Qty : 1 on 09/24/2024 by Lonnie Mehta MD at [facility] Lead N/A: Heart [employer] [id number] 06/26/20272087TC/ / [id number] / [id number] Pacemaker Cardiac Thk6mm Assurity Mri 2 Chamber Pls Gntr - [id number] Implanted:Qty : 1 on 09/24/2024 by Lonnie Mehta MD at [facility] Pacemaker Left: Chest Wall [employer] [id number] 01/24/2026 [id number] / [id number] / Procedures Procedure Name Priority Date/Time Associated Diagnosis Comments XR CHEST 1 VIEW Routine 09/25/2024 8:15 AM EDT IMPLANT GENERATOR PACEMAKER WITH DUAL LEAD Routine 09/24/2024 1:06 PM EDT AV block ECG 12-LEAD STAT 09/24/2024 8:14 AM EDT MAGNESIUM Routine 09/24/2024 3:10 AM EDT BASIC METABOLIC PANEL Routine 09/24/2024 3:10 AM EDT ECG 12-LEAD Routine 09/23/2024 3:59 PM EDT ECG 12-LEAD Routine 09/23/2024 11:10 AM EDT MAGNESIUM Routine 09/23/2024 5:23 AM EDT COMPREHENSIVE METABOLIC PANEL Routine 09/23/2024 5:23 AM EDT COMPLETE BLOOD COUNT, WITH DIFFERENTIAL Routine 09/23/2024 5:23 AM EDT FOLATE LEVEL Routine 09/23/2024 5:23 AM EDT (REPORT) IRON AND TOTAL IRON BINDING CAPACITY Routine 09/22/2024 11:41 AM EDT COMPLETE BLOOD COUNT, WITH DIFFERENTIAL Routine 09/22/2024 11:41 AM EDT IRON AND TOTAL IRON BINDING CAPACITY Routine 09/22/2024 11:41 AM EDT ECHOCARDIOGRAM (TTE) COMPREHENSIVE (CONTRAST PRN) Routine 09/22/2024 10:32 AM EDT ECG 12-LEAD Routine 09/22/2024 9:19 AM EDT VITAMIN B12 Routine 09/22/2024 5:25 AM EDT RETICULOCYTE WITH INDEX Routine 09/23/19 25 5:25 AM EDT FERRITIN Routine 09/22/2024 5:25 AM EDT TSH REFLEX TO FREE T4 Routine 09/22/2024 5:25 AM EDT PHOSPHORUS Routine 09/22/2024 5:25 AM EDT MAGNESIUM Routine 09/22/2024 5:25 AM EDT BASIC METABOLIC PANEL Routine 09/22/2024 5:25 AM EDT COMPLETE BLOOD COUNT, WITHOUT DIFFERENTIAL Routine 09/22/2024 5:25 AM EDT ECG 12-LEAD Routine 09/22/2024 1:17 AM EDT ECG 12-LEAD Routine 09/22/2024 12:18 AM EDT from Last 3 Months Results * XR Chest 1 view (09/25/2024 8:15 AM EDT) Anatomical Region Laterality Modality Chest Digital Radiogra phy 09/25/2024 8:55 AM EDT Impressions 09/25/2024 8:56 AM EDT Low lung volumes. Left chest pacer with leads overlying the right atrium and right ventricle. No pneumothorax. Streaky probable left basilar atelectasis. Question trace left effusion. Narrative 09/25/2024 8:56 AM EDT CLINICAL INFORMATION: s/p device implant. Evaluate lead placement, r/o pneumothorax COMPARISON: None. TECHNIQUE: ??AP view of the chest. FINDINGS: Heart/Mediastinum: ??Heart size prominent within normal limits accounting for portable semierect positioning and lower lung volumes. ??Mild unfolding and atherosclerotic change of the thoracic aorta. Left chest wall pacer is seen with leads overlying the right atrium and right ventricle. Lungs: ??Low lung volumes. No discrete pneumothorax. Probable minimal streaky atelectasis at the left lung base. ??Question trace blunting of left costophrenic angle which may indicate trace effusion. Osseous Structures: ??No acute abnormalities. Procedure Note Saw Camilo MD - 09/25/2024 CLINICAL INFORMATION: s/p device implant. Evaluate lead placement, r/opneumothorax COMPARISON: None. TECHNIQUE: AP view of the chest. FINDINGS: Heart/Mediastinum: Heart size prominent within normal limits accountingfor portable semierect positioning and lower lung volumes. Mild unfoldingand atherosclerotic change of the thoracic aorta. Left chest wall pacer is seen with leads overlying the right atrium andright ventricle. Lungs: Low lung volumes. No discrete pneumothorax. Probable minimalstreaky atelectasis at the left lung base. Question trace blunting ofleft costophrenic angle which may indicate trace effusion. Osseous Structures: No acute abnormalities. IMPRESSION: Low lung volumes. Left chest pacer with leads overlying the right atrium and rightventricle. No pneumothorax. Streaky probable left basilar atelectasis. Question trace left effusion. Marielle DOUGHERTY IMG DIAGNOSTIC IMAGING ORDER ANDREY Final Result * IMPLANT GENERATOR PACEMAKER WITH DUAL LEAD (09/24/2024 1:06 PM EDT) Anatomical Region Laterality Modality Cardiac Electrop hysiology Narrative 09/24/2024 1:32 PM EDT HISTORY 78 year old male with past medical history dementia, CKD, CHF, BPH, prostate cancer s/p radical prostatectomy, cirrhosis, HTN, mobitz type II who presented to [facility] from ECG with lightheadedness and bradycardia. Transferred to [facility] for further EP evaluation and consideration for pacemaker. Has subsequently shown high degree AVB with a junctional escape. He presents today for a dual PPM. PROCEDURE: ?? The patient was brought to the EP in the fasting state and informed consent was attained in the holding room after all risks, benefits and intangibles of the procedure were explained in a shared decision making process. ABX were given for prophylaxis: ancef/vanco The chest was prepped and draped in sterile fashion. The skin below the clavicle was anesthetized with local anesthesia using lidocaine/Marcaine. 2-3 cm skin incision was made and carried down to the prepectoral fascia. Hemostasis achieved. ?? At this time attention was turned towards cannulation of the axillary vein, achieved via modified seldinger technique on 1 occasions with retention of 1 wires. Over the first Hardy wire a 2088 (58 cm) was placed on the RV septum. ??The lead was placed and secured via monitored parameters. ??Thresholds, impedances and sensing were excellent and this lead was delivered without issue. The lead was sutured to the prepectorial fascia. ? Over the retained wire, a 2088, was advanced to the RAA and fixed in place. Thresholds, impedances and sensing were excellent and this lead was delivered without issue. The lead was sutured to the prepectorial fascia. The pocket was then flushed numerous times with antibiotic solution. ?? The leads were then attached to a new Dual chamber PPM: 2272 Assurity MRI The device and leads were then placed into the pocket, the device itself was fastened to the prepectoral fascia with 0-0 Tycron. ?? Abx envelope was used The pocket was then injected with Dstat for further hemostatic control. ?? The pocket was then closed in 3 layers using 2-0, 3-0 and derma arredondo. ?? Steri-Strips were applied. ??Sterile dressing was applied. No complications. Estimated blood loss less than 5 ml fluoroscopy time 3 min RESULTS: Dual PPM CONCLUSIONS: --ABX x 7 days --Pain medications. ?? --Will have a PA and lateral film --leave pressure dressing on for 24 hours --instructions given Marielle Tang PA CV ELECTROPHYSIOLOGY ORDERAB LES Final Result * ECG 12 lead (09/24/2024 8:14 AM EDT) Only the most recent of6 resultswithin the time period is included. Ventricular rate 52 BPM EKG [facility] Atrial rate 70 BPM EKG [facility] QRS duration 130 ms EKG [facility] Q-T interval 488 ms EKG [facility] QTC calculation (Bazett) 454 ms EKG [facility] R axis 66 degrees EKG [facility] T axis 33 degrees EKG [facility] 09/24/2024 8:14 AM EDT Narrative EKG [facility] - 09/24/2024 9:28 AM EDT Sinus rhythm with 2nd degree A-V block (Mobitz I) Right bundle branch block Abnormal ECG When compared with ECG of 23-Sep-2024 15:59, (unconfirmed) No significant change was found Confirmed by MD Schaeffer Venu ([id number]) on 09/24/2024 9:28:22 AM Procedure Note Mino Schaeffer MD - 09/24/2024 Sinus rhythm with 2nd degree A-V block (Mobitz I) Right bundle branch block Abnormal ECG When compared with ECG of 23-Sep-2024 15:59, (unconfirmed) No significant change was found Confirmed by MD Schaeffer Venu ([id number]) on 09/24/2024 9:28:22 AM us Snehal Jolley MD ECG ORDERABLES Final Re sult EKG [facility] * MAGNESIUM (09/24/2024 3:10 AM EDT) Only the most recent of3 resultswithin the time period is included. Magnesium 2.0 1.6 - 2.6 mg/dL 09/24/2024 4:50 AM EDT [facility] Blood Blood specimen / Unknown 09/24/2024 3:10 AM EDT 09/24/2024 4:21 AM EDT us Snehal Jolley MD LAB BLOOD ORDERABLES Fin al Result [facility] [address] [place] [address], * (ABNORMAL) BASIC METABOLIC PANEL (09/24/2024 3:10 AM EDT) Only the most recent of2 resultswithin the time period is included. Glucose 86 74 - 106 mg/dL 09/24/2024 4:50 AM EDT [facility] Comment:Fasting: <100 mg/dL, Non-Fasting: <200 mg/dL (ADA 2004) Blood Urea Nitrogen (BUN) 20 9 - 23 mg/dL 09/24/2024 4:50 AM EDT [facility] Creatinine 1.8(H) 0.7 - 1.3 mg/dL 09/24/2024 4:50 AM EDT [facility] eGFR 38(L) >59 09/24/2024 4:50 AM EDT [facility] Comment:CKD-EPI (2020) in mL /min/1.73 sq meters. Sodium 144 136 - 145 mmol/L 09/24/2024 4:50 AM EDT [facility] Potassium 4.4 3.4 - 4.5 mmol/L 09/24/2024 4:50 AM EDT [facility] Chloride 111(H) 98 - 107 mmol/L 09/24/2024 4:50 AM EDT [facility] CO2 24 20 - 31 mmol/L 09/24/2024 4:50 AM EDT [facility] Anion Gap 8 5 - 15 09/24/2024 4:50 AM EDT [facility] Calcium 8.8 8.7 - 10.5 mg/dL 09/24/2024 4:50 AM EDT [facility] BUN/Creatinine Ratio 11 10.0 - 25.0 Ratio 09/24/2024 4:50 AM EDT [facility] Blood Blood specimen / Unknown 09/24/2024 3:10 AM EDT 09/24/2024 4:21 AM EDT us Snehal Jolley MD LAB BLOOD ORDERABLES Fin al Result [facility] [address] [place] [address], [place] * (ABNORMAL) Complete Blood Count, with Differential (09/23/2024 5:23 AM EDT) Only the most recent of2 resultswithin the time period is included. White Blood Cell Count 5.1 4.0 - 11.0 Thou/uL 09/23/2024 6:17 AM EDT [facility] Platelet Count 169 150 - 450 Thou/uL 09/23/2024 6:17 AM EDT [facility] Hemoglobin 9.1(L) 13.0 - 17.7 g/dL 09/23/2024 6:17 AM EDT [facility] Hematocrit 28.6(L) 39.0 - 54.0 % 09/23/2024 6:17 AM EDT [facility] Red Blood Cell Count 3.50(L) 4.50 - 6.20 Mil/uL 09/23/2024 6:17 AM EDT [facility] MCV 82 80 - 100 fL 09/23/2024 6:17 AM EDT [facility] MCH 26.0(L) 27.0 - 31.0 pg 09/23/2024 6:17 AM EDT [facility] MCHC 31.8 30.0 - 36.0 g/dL 09/23/2024 6:17 AM EDT [facility] RDW 14.5 11.5 - 14.5 % 09/23/2024 6:17 AM EDT [facility] MPV 10.3 7.5 - 12.5 fL 09/23/2024 6:17 AM EDT [facility] Neutrophils Auto 55.5 % 09/24/19 6:17 AM EDT [facility] Immature Granulocytes 0.4 % 09/23/2024 6:17 AM EDT [facility] Lymphocytes Auto 29.3 % 09/24/19 6:17 AM EDT [facility] Monocytes Auto 11.6 % 09/23/2024 6:17 AM EDT [facility] Eosinophils Auto 2.6 % 09/24/19 6:17 AM EDT [facility] Basophils Auto 0.6 % 09/23/2024 6:17 AM EDT [facility] Abs Neutrophils Auto 2.83 2.00 - 7.50 Thou/uL 09/23/2024 6:17 AM EDT [facility] Abs Immature Granulocytes 0.02 0.00 - 0.10 Thou/uL 09/23/2024 6:17 AM EDT [facility] Abs Lymphocytes Auto 1.49(L) 1.50 - 4.50 Thou/uL 09/23/2024 6:17 AM EDT [facility] Abs Monocytes Auto 0.59 0.20 - 1.50 Thou/uL 09/23/2024 6:17 AM EDT [facility] Abs Eosinophils Auto 0.13 0.00 - 0.70 Thou/uL 09/23/2024 6:17 AM EDT [facility] Abs Basophils Auto 0.03 0.00 - 0.20 Thou/uL 09/23/2024 6:17 AM EDT [facility] Blood Blood specimen / Unknown 09/23/2024 5:23 AM EDT 09/23/2024 6:13 AM EDT us Selene Grewal MD LAB BLOOD ORDERABLES Final Resul t [facility] [address] [place] [address], * Folate Level (09/23/2024 5:23 AM EDT) Folate, Serum 12.9 >7.2 ng/mL 09/23/2024 11:49 AM EDT [facility] Comment:Specimen hemolyzed. Results may be artifactually elevated. Blood Blood specimen / Unknown 09/23/2024 5:23 AM EDT 09/23/2024 6:14 AM EDT us Seelne Grewal MD LAB BLOOD ORDERABLES Final Resul t Performing Organization Address City/[facility]/[place]IP [place] [address], [place] [address] [address] * (ABNORMAL) Comprehensive Metabolic Panel (09/23/2024 5:23 AM EDT) Glucose 87 74 - 106 mg/dL 09/23/2024 6:46 AM EDT [facility] Comment:Fasting: <100 mg/dL, Non-Fasting: <200 mg/dL (ADA 2005) Blood Urea Nitrogen (BUN) 20 9 - 23 mg/dL 09/23/2024 6:46 AM EDT [facility] Creatinine 1.7(H) 0.7 - 1.3 mg/dL 09/23/2024 6:46 AM EDT [facility] eGFR 40(L) >59 09/23/2024 6:46 AM EDT [facility] Comment:CKD-EPI (2020) in mL /min/1.73 sq meters. Sodium 145 136 - 145 mmol/L 09/23/2024 6:46 AM EDT [facility] Potassium 4.1 3.4 - 4.5 mmol/L 09/23/2024 6:46 AM EDT [facility] Chloride 113(H) 98 - 107 mmol/L 09/23/2024 6:46 AM EDT [facility] CO2 24 20 - 31 mmol/L 09/23/2024 6:46 AM EDT [facility] Calcium 8.7 8.7 - 10.5 mg/dL 09/23/2024 6:46 AM EDT [facility] Alkaline Phosphatase 85 45 - 128 U/L 09/23/2024 6:46 AM EDT [facility] Aspartate Aminotrans (AST) 18 <34 U/L 09/23/2024 6:46 AM EDT [facility] Alanine Aminotrans (ALT) 10 10 - 49 U/L 09/23/2024 6:46 AM EDT [facility] Bilirubin, Total 0.5 0.3 - 1.2 mg/dL 09/23/2024 6:46 AM EDT [facility] Protein, Total 6.1 5.7 - 8.2 g/dL 09/23/2024 6:46 AM EDT [facility] Albumin 4.0 3.4 - 4.8 g/dL 09/23/2024 6:46 AM EDT [facility] BUN/Creatinine Ratio 12 10.0 - 25.0 Ratio 09/23/2024 6:46 AM EDT [facility] Globulin 2.1 1.5 - 3.9 g/dL 09/23/2024 6:46 AM EDT [facility] Albumin/Globulin Ratio 1.9 1.5 - 2.5 Ratio 09/23/2024 6:46 AM EDT [facility] Anion Gap 8 5 - 15 09/23/2024 6:46 AM EDT [facility] Blood Blood specimen / Unknown 09/23/2024 5:23 AM EDT 09/23/2024 6:13 AM EDT us Selene Grewal MD LAB BLOOD ORDERABLES Final Resul t Performing Organization Address [facility] Co de Phone Number [facility] [address] [place] [address], [place] * (ABNORMAL) Iron and Total Iron Binding Capacity (09/22/2024 11:41 AM EDT) Pathologist [facility] Iron 26(L) 65 - 175 ug/dL 09/22/2024 12:55 PM EDT [facility] UIBC 320 ug/dL 09/22/2024 12:55 PM EDT [facility] Total Iron Binding Capacity 346 250 - 425 ug/dL 09/22/2024 12:55 PM EDT [facility] Iron Sat 8(L) 20 - 50 % 09/22/2024 12:55 PM EDT [facility] 09/22/2024 11:4 1 AM EDT 09/22/2024 12:27 PM EDT us Selene Grewal MD LAB BLOOD ORDERABLES Final Resul t Performing Organization Address [facility] Co de Phone Number [facility] [address] [place] [address], [place] * ECHOCARDIOGRAM COMPREHENSIVE WITH CONTRAST (09/22/2024 10:32 AM EDT) [facility] IVS Mean (F:0.6-0.9, M:0.6-1.0) 1.0 cm IVS (F:0.6-0.9, M:0.6-1.0) 1.0 cm LVIDD Mean (F:3.8-5.2, M:4.2-5.8) 4.2 cm LVIDD (F:3.8-5.2, M:4.2-5.8) 4.2 cm LVIDS (F:2.2-3.5, M:2.5-4.0) 3.2 cm LVIDS (F:2.2-3.5, M:2.5-4.0) 3.2 cm LVOT diameter mean 2.0 cm LVOT diameter 2.0 cm PW Mean (F:0.6-0.9, M:0.6-1.0) 1.0 cm PW (F:0.6-0.9, M:0.6-1.0) 1.0 cm LV Diastolic Volume Mean 103.4 mL LV Diastolic Volume 103 mL LV Systolic Volume Mean 41.7 mL LV Systolic Volume 42 mL LVOT mn grad mean 1.8 mmHg LVOT mn grad 1.8 mmHg LVOT peak danielle mean 0.9 m/s LVOT peak danielle 0.9 m/s LVOT VTI MEAN 24.0 cm LVOT VTI 24.0 cm RV Free wall pk S' Mean 10.3 cm/s RV Free wall pk S' 10.3 cm/s LA volume Mean 87.9 mL LA volume 87.9 mL AV mean gradient mean 4.6 mmHg AV mean gradient 4.6 mmHg Ao peak daneille mean 1.6 m/s Ao peak danielle 1.6 m/s Ao VTI Mean 34.1 cm Ao VTI 34.1 cm Tapse Mean 1.6 cm Tapse 1.6 cm Ascending aorta mean 3.2 cm Ascending aorta 3.2 cm Sinuses of Valsalva Mean 3.6 cm Sinuses of Valsalva 3.6 cm Inferior Vena Cava Diameter Mean 1.5 cm Inferior Vena Cava Diameter 1.5 cm Heart Rate 53 bpm BP Systolic 150 mmHg BP Diastolic 62 mmHg Height 68.00 inches Weight 154.00 lbs LV Mass Index (F:43-95, M:49-115) 75.0 g/m2 LA Volume Index (16-34) 48.1 mL/m2 LV Diastolic Volume Index (F:29-61, M:35-75) 56.3 mL/m2 LV Systolic Volume Index (F:8-24, M:11-31) 23.0 mL/m2 AV peak gradient 10.2 mmHg LVOT stroke volume 75 mL LVOT area 3.1 cm2 AV LVOT peak gradient 3.2 mmHg Dimensionless Index 0.70 SVI 41 mL/m2 AV area by cont VTI 2.2 cm2 Ascending aorta Index 1.7 cm/m2 Sinuses of Valsalva Index 2.0 cm/m2 Valve area - Index 1.2 cm2/m2 LV mass 137.2 g Driscoll BP EF (55-75) 59 % LVOT SI 41.20 mL/m2 LV RWT 0.48 Left Ventricular Cardiac Index 2.2 L/min/m2 Left Ventricular Cardiac Output 4.0 L/min BSA 1.83 m2 Anatomical Region Laterality Modality Ultrasound Narrative 09/22/2024 10:49 AM EDT ?The left ventricle is normal in size. ?Wall thickness is normal. ?Left ventricular systolic function is normal. The quantitative EF by 2D Driscoll biplane is 59%. ?No wall motion abnormalities are present. ?Diastolic function could not be accurately assessed. ?The right ventricle is normal in size. ?Right ventricular systolic function is normal. ?The left atrial cavity is severely dilated. ?No hemoynamically significant valvular abnormalities detected. ?There is no previous study for comparison in our system. Technical Details Definity contrast was used during the study. Overall the study quality was fair. The study was difficult due to patient's body habitus. Left Ventricle The left ventricle is normal in size. Wall thickness is normal. Left ventricular systolic function is normal. The quantitative EF by 2D Driscoll biplane is 59%. No wall motion abnormalities are present. Diastolic function could not be accurately assessed. Right Ventricle The right ventricle is normal in size. Right ventricular systolic function is normal. Left Atrium The left atrial cavity is severely dilated. Right Atrium Right atrial size is normal. Based on IVC diameter and collapse, right atrial pressure is estimated to be normal (3 mmHg). Mitral Valve The mitral valve is structurally normal. The mitral leaflets are not thickened. There is mild mitral posterior annular calcification. There is trace mitral regurgitation. Tricuspid Valve The tricuspid valve is structurally normal. There is trace tricuspid regurgitation. The absence of sufficient significant tricuspid regurgitation precludes estimation of right ventricular systolic pressure. Aortic Valve The aortic valve is tricuspid. There is aortic valve sclerosis without evidence of stenosis.There is no aortic regurgitation or stenosis. Pulmonic Valve The pulmonic valve is structurally normal. There is trace pulmonic regurgitation. Ascending Aorta The aortic root dimension is normal. Pericardium There is no pericardial effusion. Prior Study There is no previous study for comparison in our system. us Holly Newton MD CV ECHO ORDERABLES Final Result * TSH REFLEX FREE T4 (09/22/2024 5:25 AM EDT) TSH, Highly Sensitive 1.72 0.48 - 4.17 mIU/L 09/22/2024 6:09 AM EDT [facility] Blood Blood specimen / Unknown 09/22/2024 5:25 AM EDT 09/22/2024 5:35 AM EDT Holly Newton MD LAB BLOOD ORDERABLES [place] [address], [place] * (ABNORMAL) Reticulocyte with Index (09/22/2024 5:25 AM EDT) Reticulocyte Count 1.4 0.7 - 2.0 % 09/22/2024 11:39 AM EDT [facility] Reticulocyte, Absolute 47.6 30.0 - 100.0 Thou/uL 09/22/2024 11:39 AM EDT [facility] Reticulocyte Index 0.8(L) 1.0 - 2.0 % 09/22/2024 11:39 AM EDT [facility] Retic Hemoglobin Content 22.60(L) 28 - 35 pg 09/22/2024 11:39 AM EDT [facility] Immature Reticulocyte Fraction 16.0(H) 2.3 - 15.9 % 09/22/2024 11:39 AM EDT [facility] Blood specimen / Unknown 09/22/2024 5:25 AM EDT 09/22/2024 5:35 AM EDT Holly Newton MD LAB BLOOD ORDERABLES [place] [address], [place] * (ABNORMAL) Complete Blood Count WITHOUT Differential - Early AM (09/22/2024 5:25 AM EDT) White Blood Cell Count 5.1 4.0 - 11.0 Thou/uL 09/22/2024 5:40 AM EDT [facility] Platelet Count 158 150 - 450 Thou/uL 09/22/2024 5:40 AM EDT [facility] Hemoglobin 8.6(L) 13.0 - 17.7 g/dL 09/22/2024 5:40 AM EDT [facility] Hematocrit 28.1(L) 39.0 - 54.0 % 09/22/2024 5:40 AM EDT [facility] Red Blood Cell Count 3.42(L) 4.50 - 6.20 Mil/uL 09/22/2024 5:40 AM EDT [facility] MCV 82 80 - 100 fL 09/22/2024 5:40 AM EDT [facility] MCH 25.1(L) 27.0 - 31.0 pg 09/22/2024 5:40 AM EDT [facility] MCHC 30.6 30.0 - 36.0 g/dL 09/22/2024 5:40 AM EDT [facility] RDW 14.4 11.5 - 14.5 % 09/22/2024 5:40 AM EDT [facility] MPV 9.8 7.5 - 12.5 fL 09/22/2024 5:40 AM EDT [facility] Blood Blood specimen / Unknown 09/22/2024 5:25 AM EDT 09/22/2024 5:35 AM EDT us Holly Newton MD LAB BLOOD ORDERABLES Final Resu lt [facility] [address] [place] [address], * PHOSPHORUS (09/22/2024 5:25 AM EDT) Phosphorus 2.7 2.4 - 5.1 mg/dL 09/22/2024 6:09 AM EDT [facility] Blood Blood specimen / Unknown 09/22/2024 5:25 AM EDT 09/22/2024 5:35 AM EDT Holly Newton MD LAB BLOOD ORDERABLES Final Resu lt Performing Organization Address City/[facility]/ZIP Co de Phone Number [address] * FERRITIN (09/22/2024 5:25 AM EDT) Ferritin 11 11 - 307 ug/L 09/22/2024 12:34 PM EDT [facility] 09/22/2024 5:25 AM EDT 09/22/2024 5:35 AM EDT Holly Newton MD LAB BLOOD ORDERABLES Final Resu lt Performing Organization Address [facility]/ZIP Co de Phone Number [address] * VITAMIN B12 (09/22/2024 5:25 AM EDT) Vitamin B12 604 211 - 911 pg/mL 09/22/2024 12:34 PM EDT [facility] 09/22/2024 5:25 AM EDT 09/22/2024 5:35 AM EDT Holly Newton MD LAB BLOOD ORDERABLES Final Resu lt Performing Organization Address City/[facility]/ZIP Co de Phone Number [address] from Last 3 Months Insurance [facility] In [address] [address] MEDICARE PART A & B Advance Directives Documents on File Type Date Recorded 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 Advance Directive-Scan 2024 1:55 PM HEALTHCARE PROXY 05/22/2021 [facility] * DNR (Latest Code Status on File) Date Activated Date Inactivated Comments 09/25/2024 9:05 AM Question Answer Comments Decision thoroughly discussed with: Patient * Full Code Date Activated Date Inactivated Comments 09/24/2024 1:38 PM 09/25/2024 9:05 AM * Full Code Date Activated Date Inactivated Comments 09/24/2024 11:27 AM 09/24/2024 1:38 PM Question Answer Comments Decision Thoroughly Discussed with: Legally Auth orized [employer] Mechanic Helper Name of Legally Authorized [employer] Power[employer] Mechanic Helper: Yoon christie * DNR Date Activated Date Inactivated Comments 09/22/2024 3:16 AM 09/24/2024 11:27 AM Question Answer Comments Decision thoroughly discussed with: Sherly ent arrived with valid State [place] DNR Transfer form
--- OUTSIDE RECORDS SUMMARY | 2024-10-02 07:58 | XMS_ITS | Encounter Summary ---
Author Organization [employer] Address [address] [place] [address] Care Team Providers [facility] [employer] Co[employer] Sander Name Role Phone Unavailable Primary Care Provider Unavailabl e Encounter Details Date Type Department Care Team (Late st Contact Info) Description 06/20/2023 Abstract [facility] [address] [place] [address] Robin Pastor, ANEESH [address] [place] [address] Social History Tobacco Use Types Packs/Day Years [...]
[2024-10-02 08:43] LABS: Alanine Aminotransferase 23 U/L (0-40); Albumin Level 3.5 g/dL (3.5-5.0); Alkaline Phosphatase 81 U/L (39-117); Anion Gap 11 (12-20); Aspartate Amino Transferase 37 U/L (5-37); Bilirubin Direct 0.2 mg/dL (0.0-0.5); Bilirubin Total 0.3 mg/dL (0.0-1.0); Blood Urea Nitrogen 18 mg/dL (9-16); Calcium 8.5 mg/dL (8.4-10.2); Carbon Dioxide 21 mmol/L (22-29); Chloride 111 mmol/L (96-108); Estimated Glomerular Filt Rate 39; Glucose Random 79 mg/dL (60-115); Magnesium 1.9 mg/dL (1.6-2.6); Potassium 3.9 mmol/L (3.3-5.1); Sodium 139 mmol/L (135-145); Total Protein 5.9 g/dL (6.5-8.0)
[2024-10-02 08:46] LABS: Basophils Percent Auto 0.5 % (0-2); Eosinophils Absolute Auto 0.1 X10*3/uL (0.0-0.4); Eosinophils Percent Auto 2.7 % (0-4); Hematocrit 27.4 % (42.0-52.0); Hemoglobin 9.1 g/dl (14.0-18.0); Imm Gran Abs Auto 0.03 X10*3/uL (0.00-0.03); Imm Gran Pct Auto 0.8 % (0.0-0.4); Lymphocytes Absolute Auto 0.9 X10*3/uL (1.2-4.9); Lymphocytes Percent Auto 23.4 % (20-40); Mean Corpuscular HGB Conc 33.2 g/dl (31.0-36.0); Mean Corpuscular Hemoglobin 26.9 pg (27.0-33.0); Mean Corpuscular Volume 81.1 fL (80.0-98.0); Mean Platelet Volume 10.2 fL (9.4-12.4); Monocytes Absolute Auto 0.4 X10*3/uL (0.1-1.2); Monocytes Percent Auto 10.3 % (2-11); Neutrophils Absolute Auto 2.3 x10*3/uL (2.0-8.3); Neutrophils Percent Auto 62.3 % (45-73); Platelet Count 137 X10*3/uL (160-400); Red Blood Count 3.38 X10*6/uL (4.60-5.80); Red Cell Distribution Width 16.6 % (11.0-16.0)
[2024-10-02 08:47] LABS: White Blood Count 3.7 X10*3/uL (4.8-10.8)
== END 2024-10-02 07:54 | disposition home or self-care (01) ==
LOC: HO.HSH3N 07:53
PROVIDERS: Visit Provider Nurse Practitioner Acute Care
DX: N18.9 Chronic kidney disease, unspecified (principal); K74.60 Unspecified cirrhosis of liver
CPT/HCPCS: 36415; 80053; 82248; 83735; 85025

== ENCOUNTER 2024-10-23 09:30 | Outpatient (AMB) | payer MEDICARE, SELFPAY ==
--- NOTE | 2024-10-23 09:48 | MHC.OFFVIS ---
Vital Signs 10/23/24 09:49 Height 5 ft 9 in BP 110/52 L Blood Pressure Location Lt brachial Position Sitting Pulse 65 Pulse Source Pulse Oximeter Intake Visit Reasons: Follow up- Wound Check- Pacemaker Interrigation Pilot Manager Required: No Allergies lisinopril [LISINOPRIL] Allergy (Mild, Verified 10/23/24 09:53) UNKNOWN baclofen [BACLOFEN] Allergy (Unknown, Verified 10/23/24 09:53) UNKNOWN shellfish derived [SHELLFISH DERIVED] Allergy (Unknown, Verified 10/23/24 09:53) UNKNOWN Medication List - Last Reconciled 10/23/24 by RUBI Lopez acetaminophen 650 mg PO Q6H PRN allopurinol 50 mg PO DAILY alum-mag hydroxide-simeth 200-200-20 mg/5 mL (Mag-Al Plus) 30 mL PO TID PRN amiodarone 200 mg PO DAILY amlodipine 2.5 mg See Protocol PO DAILY 90 days atorvastatin 40 mg PO BEDTIME 90 days calcium carbonate 500 mg PO TID PRN cholecalciferol (vitamin D3) 50 mcg PO DAILY clopidogrel 75 mg PO DAILY 90 days famotidine 20 mg PO DAILY ferrous gluconate 324 mg PO DAILY lactase 3,000 units PO QID PRN loperamide 2 mg PO Q6H PRN loratadine 10 mg PO BEDTIME mirtazapine 30 mg PO DAILY multivitamin 1 tab PO DAILY ondansetron 4 mg PO Q6H PRN pantoprazole 40 mg PO BID polyethylene glycol 3350 17 grams PO DAILY PRN sertraline 50 mg PO DAILY tamsulosin (Flomax) 0.4 mg PO DAILY thiamine HCl (vitamin B1) 100 mg PO DAILY HPI HPI Follow up- Wound Check- Pacemaker Interrigation: Details: Clifford is an 79-year-old male with past medical history of carotid stenosis, CAD, systolic heart failure, Mobitz 1 AV block who was recently seen in the [facility] with junctional bradycardia, rate in the 30s. Arrangements were made for transfer to [facility] in [facility] (due to physician availability) for pacemaker placement. A [employer] dual-chamber pacemaker was placed. He was noted to have very frequent ventricular ectopy and was started on amiodarone. He now presents for follow-up. Today he reports he has been doing very well since his pacemaker placement. He has not had any concerning symptoms. He denies lightheadedness, weakness, presyncope, syncope. No chest discomfort at rest or with activity. No soreness at pacemaker site. No shortness of breath, PND, orthopnea. He is mostly sedentary and ambulates short distances with a walker. At this visit he is sitting in a wheelchair. He has a staff member from his half-way facility with him. [facility] Medical History CKD (chronic kidney disease) New onset of congestive heart failure Diverticulitis Dementia Hoffman esophagus Malignant neoplasm of prostate Cirrhosis of liver Surgical History H/O radical prostatectomy Family History Father CAD (coronary artery disease) Social History Household Members: Other Housing: Assisted Alcohol intake: former Patient Tobacco Use Status: Never used Tobacco Advance Directives Date on File: 12/22/21 service: Yes Current occupational status: retired Review of Systems Const All systems reviewed & are unremarkable except as noted in HPI and below ENT Denies dizziness Card Denies chest pain, Denies chest pain at rest, Denies chest pain with activity, Denies rapid heart rate, Denies pedal edema, Denies edema, Denies leg edema, Denies lightheadedness, Denies palpitations, Denies dyspnea, Denies dyspnea on exertion and Denies orthopnea Resp Denies cough, Denies dyspnea and Denies dyspnea on exertion GI Denies hematochezia and Denies change in stool character Musc Reports abnormal gait (uses walker), Denies limited range of motion, Denies muscle cramps, Reports muscle weakness, Denies numbness, Denies radiating pain into limb, Denies stiffness and Denies tingling Neuro Reports abnormal gait (uses walker), Denies dizziness, Denies numbness and Denies tingling Endo Denies palpitations Physical Exam Vital Signs: Last Vital Signs Pulse 65 10/23/24 09:49 BP 110/52 L 10/23/24 09:49 Const Other: elderly male sitting in wheelchair General: cooperative, healthy appearing, comfortable and no acute distress Orientation/consciousness: patient oriented x3 Neck Neck: Yes normal visual inspection and Yes no JVD Chest Other: Pacer site left upper chest well approximated, no redness, swelling, drainage Resp Effort & Inspection: normal respiratory effort Auscultation: clear to auscultation bilaterally, no crackles, no rales, no rhonchi and no wheezes Cardio Rate: regular rate Rhythm: regular rhythm Heart sounds: S1 normal heart sound present, S2 normal heart sound present, no gallops, no murmurs and no rubs Neuro General: patient oriented x3 Extrem General: Yes normal to inspection, No no pedal edema and No calf tenderness Psych Appearance: grossly normal Mental Status: mental status grossly normal Speech and movement: Normal speech and movement present Office Procedures Cardiac Device Check Cardiac Device Check Details: [employer] dual chamber pacemaker interrogation shows device is functioning normally. Battery 10.9 years, atrial threshold 0.625 volts at 0.4 milliseconds, ventricular threshold 0.625 volts at 0.4 mg DDD mode 87308-MR Cardiac Device Check, pacemaker dual lead Procedure code (CPT) selection complete Assessment & Plan Assessment & Plan (1) Heart block: Code(s): I45.9 - Conduction disorder, unspecified Category: Medical Plan: Recent findings of Mobitz 1 and third-degree heart block. [facility] eval for significant bradycardia showing junctional rhythm in the 30s. He has since undergone [employer] dual-chamber pacemaker placement and is currently feeling well. (2) Symptomatic bradycardia: Code(s): R00.1 - Bradycardia, unspecified Category: Medical Plan: Resolved (3) Pacemaker: Comment: [employer] dual-chamber pacemaker 09/24/2024 Code(s): Z95.0 - Presence of cardiac pacemaker Category: Medical Plan: Pacemaker site very well healed. Interrogation today shows it is functioning normally. He is currently V pacing greater than 99% of the time. (4) Atherosclerotic cardiovascular disease: Code(s): I25.10 - Atherosclerotic heart disease of samish coronary artery without angina pectoris Category: Medical Plan: Recent NSTEMI that was managed medically. Last echo 05/07/2024 shows EF 40-45%, mild calcific aortic and mitral valve changes with normal valve Dopplers. He denies any anginal symptoms and he is mostly sedentary. Continue atorvastatin with LDL goal less than 70. Continue Plavix and metoprolol. Signs and symptoms of angina reviewed with him. (5) Cardiomyopathy: Code(s): I42.9 - Cardiomyopathy, unspecified Category: Medical Plan: Cardiomyopathy with EF 40-45%. Thought to be multifactorial with his multiple comorbidities. He does not appear to have heart failure on examination. Continue to manage medically. Continue metoprolol XL for neurohormonal modulation. He is not on Tam or Arb due to CKD, last creatinine 1.69. (6) Hospital discharge follow-up: Code(s): Z09 - Encounter for follow-up examination after completed treatment for conditions other than malignant neoplasm Category: Medical Plan: Discharge summary reviewed. Plan During the visit, I discussed with the patient the effectiveness of his pacemaker in managing bradycardia. We reviewed expectations for the device's battery life and noted no current need for adjusting medications. Follow-up will include a detailed examination with a [employer] telephone sales representative for device energy adjustments. Emphasis on continued follow-up and safety precautions involving the device was reinforced. We agreed on future monitoring with regular check-ups every six months post-initial follow-up visit in a few weeks. Patient Instructions: - Continue taking all prescribed medications as directed. - Attend follow-up appointment in a few weeks for a detailed pacemaker check. - Engage in normal activities as the arm restriction has been lifted. - Notify healthcare provider of any new or worsening symptoms. - Return for routine device checks every six months. Patient was informed and verbally consented to the use of an ambient scribe for clinic note documentation during this visit. Visit time spent on chart review, interview, assessment, orders, documentation. Coding Level of Care Code Est Pt Level 4 (94920) Complex EM visit Add On G2211 Diagnoses Heart block I45.9 Symptomatic bradycardia R00.1 Pacemaker Z95.0 Atherosclerotic cardiovascular disease I25.10 Cardiomyopathy I42.9 Hospital discharge follow-up Z09 CPT Codes Cardiac Device Check - Cardiac Device 2: 47487-HB Cardiac Device Check, pacemaker dual lead ([id number]) Time Spent (min) 32
[2024-10-23 09:49] VITALS: BP 110/52; PULSE 65
--- OUTSIDE RECORDS SUMMARY | 2024-10-23 09:50 | XMS_ITS | Clinical Summary ---
Author Organization [facility] Address [address] [place] [id number] Care Team Providers Care [employer] Name Role Phone Unavailable Primary Care Provider [...] September 30, 2024. 5 10/31/19 25 Active ferrous gluconate (FERGON) 324 MG tabletIndicatio ns:Third degree heart block (HCC) Take 1 tablet (324 mg total) by mouth every morning with breakfast. Take 2 hours before or 4 hours after acid reducers. 5 10/26/19 25 Active cephALEXin (KEFLEX) 500 MG capsuleIndicati ons:Third degree heart block (HCC),Bradycard ia Take 1 capsule (500 mg total) by mouth every 8 (eight) hours around the clock. 10/03/19 25 Active Problems Problem Noted Date Diagnosed Date Bradycardia 09/22/2024 AV block 09/22/2024 Encounters Date Type Department Care Team Description 09/28/2024 Telephone [facility] [address] [phone] Lonnie Mehta MD Remote Patient Monitoring 09/28/2024 Telephone [facility] [address] [place] [address] Lonnie Mehta MD Advice Only 09/24/2024 11:40 AM EDT Anesthesia Event [facility] - Electrophysiology Laboratory [address] [place] [phone] Emily Castro MD 09/24/2024 11:18 AM EDT - 09/24/2024 1:35 PM EDT Surgery [facility] - Electrophysiology Laboratory [address] [place] [phone] Lonnie Mehta MD Implantation of dual-chamber pacemaker w/dual lead; [id number] 09/22/2024 12:09 AM EDT - 09/25/2024 3:00 PM EDT Hospital Encounter [facility] [address] [phone] Armando Pedroza MD James, MD Carmina Wilkes, MD Samreen Basurto Giselle Sacha, MD Third degree heart block (HCC) (Primary Dx); AV block; Bradycardia Discharge Disposition: Senior Care Facility 09/22/2024 Travel 09/21/2024 Hospital Encounter from Last 3 Months Social History Tobacco Use Types Packs/Day Years Used Date Smoking Tobacco: Never Smokeless Tobacco: Never Tobacco Cessation:Counseling Given: Not Answered Alcohol Use Standard Drinks/Week Comments Not Currently 0 (1 standard drink = 0.6 oz pur e alcohol) [facility] Utilities Answer Date Recorded In the [...] any time in the past 12 m [facility], were you homeless or living in a fpc (including now)? Patient unable to answer 09/22/2024 [...] Info) Description 10/27/2024 1:15 PM EDT Appointment [facility] [place] [facility] [address] [place] [address] Lonnie Mehta MD [address] [employer] [facility] [address] [place] [address] Health Maintenance Due Date Last [...] this topic Medical Devices Implanted Type Area On Air Personality Device Identifier Shelf Expiration Date Model / Serial / Lot [id number] Lead Pacing 58cm 6fr Hlx Ecrdm Bipolar Actfx Xtd Is 1 Tndrl - [id number] Implanted:Qty : 1 on 09/24/2024 by Lonnie Mehta MD at [facility] Lead N/A: Heart [employer] [id number] 06/26/20272087TC/ / [id number] / Lead Pacing 52cm 6fr Hlx Ecrdm Bipolar Actfx Is-1 Conn Xtd - [id number] Implanted:Qty : 1 on 09/24/2024 by Lonnie Mehta MD at [facility] Lead N/A: Heart [employer] [id number] 06/26/20272087TC/ / [id number] / [id number] Pacemaker Cardiac Thk6mm Assurity Mri 2 Chamber Pls Gntr - [id number] Implanted:Qty : 1 on 09/24/2024 by Lonnie Metha MD at [facility] Pacemaker Left: Chest Wall [employer] [id number] 01/24/2026 [id number] / [id number] / Procedures Procedure Name Priority Date/Time Associated [...] HTN, mobitz type II who presented to [facility] from ECG with lightheadedness and bradycardia. Transferred to [facility] for further EP evaluation and consideration [...] retention of 1 wires. Over the first [place] wire a 2088 (58 cm) was placed [...] is included. Ventricular rate 52 BPM EKG [facility] Atrial rate 70 BPM EKG [facility] QRS duration 130 ms EKG [facility] Q-T interval 488 ms EKG [facility] QTC calculation (Bazett) 454 ms EKG [facility] R axis 66 degrees EKG [facility] T axis 33 degrees EKG [facility] 09/24/2024 8:14 AM EDT Narrative EKG [facility] - 09/24/2024 9:28 AM EDT Sinus rhythm with 2nd degree A-V block (Mobitz I) Right bundle branch block Abnormal ECG When compared with ECG of 23-Sep-2024 15:59, (unconfirmed) No significant change was found Confirmed by MD Schaeffer Venu ([id number]) on 09/24/2024 9:28:22 AM Procedure Note Mino Schaeffer MD - 09/24/2024 Sinus rhythm with 2nd degree A-V block (Mobitz I) Right bundle branch block Abnormal ECG When compared with ECG of 23-Sep-2024 15:59, (unconfirmed) No significant change was found Confirmed by MD Schaeffer Venu ([id number]) on 09/24/2024 9:28:22 AM Snehal Jolley MD ECG ORDERABLES Final Re sult EKG [facility] * MAGNESIUM (09/24/2024 3:10 AM EDT) Only the most recent of3 resultswithin the time period is included. Magnesium 2.0 1.6 - 2.6 mg/dL 09/24/2024 4:50 AM EDT [facility] Blood Blood specimen / Unknown 09/24/2024 3:10 AM EDT 09/24/2024 4:21 AM EDT us Snehal Jolley MD LAB BLOOD ORDERABLES Fin al Result [facility] [address] [place] [address], * (ABNORMAL) BASIC METABOLIC PANEL (09/24/2024 3:10 AM EDT) Only the most recent of2 resultswithin the time period is included. Glucose 86 74 - 106 mg/dL 09/24/2024 4:50 AM EDT [facility] Comment:Fasting: <100 mg/dL, Non-Fasting: <200 mg/dL (ADA 2004) Blood Urea Nitrogen (BUN) 20 9 - 23 mg/dL 09/24/2024 4:50 AM EDT [facility] Creatinine 1.8(H) 0.7 - 1.3 mg/dL 09/24/2024 4:50 AM EDT [facility] eGFR 38(L) >59 09/24/2024 4:50 AM EDT [facility] Comment:CKD-EPI (2020) in mL /min/1.73 sq meters. Sodium 144 136 - 145 mmol/L 09/24/2024 4:50 AM EDT [facility] Potassium 4.4 3.4 - 4.5 mmol/L 09/24/2024 4:50 AM EDT [facility] Chloride 111(H) 98 - 107 mmol/L 09/24/2024 4:50 AM EDT [facility] CO2 24 20 - 31 mmol/L 09/24/2024 4:50 AM EDT [facility] Anion Gap 8 5 - 15 09/24/2024 4:50 AM EDT [facility] Calcium 8.8 8.7 - 10.5 mg/dL 09/24/2024 4:50 AM EDT [facility] BUN/Creatinine Ratio 11 10.0 - 25.0 Ratio 09/24/2024 4:50 AM EDT [facility] Blood Blood specimen / Unknown 09/24/2024 3:10 AM EDT 09/24/2024 4:21 AM EDT us Snehal Jolley MD LAB BLOOD ORDERABLES Fin al Result [facility] [address] [place] [address], [place] * (ABNORMAL) Complete Blood Count, with Differential (09/23/2024 5:23 AM EDT) Only the most recent of2 resultswithin the time period is included. White Blood Cell Count 5.1 4.0 - 11.0 Thou/uL 09/23/2024 6:17 AM EDT [facility] Platelet Count 169 150 - 450 Thou/uL 09/23/2024 6:17 AM EDT [facility] Hemoglobin 9.1(L) 13.0 - 17.7 g/dL 09/23/2024 6:17 AM EDT [facility] Hematocrit 28.6(L) 39.0 - 54.0 % 09/23/2024 6:17 AM EDT [facility] Red Blood Cell Count 3.50(L) 4.50 - 6.20 Mil/uL 09/23/2024 6:17 AM EDT [facility] MCV 82 80 - 100 fL 09/23/2024 6:17 AM EDT [facility] MCH 26.0(L) 27.0 - 31.0 pg 09/23/2024 6:17 AM EDT [facility] MCHC 31.8 30.0 - 36.0 g/dL 09/23/2024 6:17 AM EDT [facility] RDW 14.5 11.5 - 14.5 % 09/23/2024 6:17 AM EDT [facility] MPV 10.3 7.5 - 12.5 fL 09/23/2024 6:17 AM EDT [facility] Neutrophils Auto 55.5 % 09/24/19 6:17 AM EDT [facility] Immature Granulocytes 0.4 % 09/23/2024 6:17 AM EDT [facility] Lymphocytes Auto 29.3 % 09/24/19 6:17 AM EDT [facility] Monocytes Auto 11.6 % 09/23/2024 6:17 AM EDT [facility] Eosinophils Auto 2.6 % 09/24/19 6:17 AM EDT [facility] Basophils Auto 0.6 % 09/23/2024 6:17 AM EDT [facility] Abs Neutrophils Auto 2.83 2.00 - 7.50 Thou/uL 09/23/2024 6:17 AM EDT [facility] Abs Immature Granulocytes 0.02 0.00 - 0.10 Thou/uL 09/23/2024 6:17 AM EDT [facility] Abs Lymphocytes Auto 1.49(L) 1.50 - 4.50 Thou/uL 09/23/2024 6:17 AM EDT [facility] Abs Monocytes Auto 0.59 0.20 - 1.50 Thou/uL 09/23/2024 6:17 AM EDT [facility] Abs Eosinophils Auto 0.13 0.00 - 0.70 Thou/uL 09/23/2024 6:17 AM EDT [facility] Abs Basophils Auto 0.03 0.00 - 0.20 Thou/uL 09/23/2024 6:17 AM EDT [facility] Blood Blood specimen / Unknown 09/23/2024 5:23 AM EDT 09/23/2024 6:13 AM EDT us Selene Grewal MD LAB BLOOD ORDERABLES Final Resul t [facility] [address] [place] [address], * Folate Level (09/23/2024 5:23 AM EDT) Folate, Serum 12.9 >7.2 ng/mL 09/23/2024 11:49 AM EDT [facility] Comment:Specimen hemolyzed. Results may be artifactually elevated. Blood Blood specimen / Unknown 09/23/2024 5:23 AM EDT 09/23/2024 6:14 AM EDT us Selene Grewal MD LAB BLOOD ORDERABLES Final Resul t Performing Organization Address City/[facility]/ZIP Co de Phone Number [address] [address], [place] [address] [address] * (ABNORMAL) Comprehensive Metabolic Panel (09/23/2024 5:23 AM EDT) Glucose 87 74 - 106 mg/dL 09/23/2024 6:46 AM EDT [facility] Comment:Fasting: <100 mg/dL, Non-Fasting: <200 mg/dL (ADA 2005) Blood Urea Nitrogen (BUN) 20 9 - 23 mg/dL 09/23/2024 6:46 AM EDT [facility] Creatinine 1.7(H) 0.7 - 1.3 mg/dL 09/23/2024 6:46 AM EDT [facility] eGFR 40(L) >59 09/23/2024 6:46 AM EDT [facility] Comment:CKD-EPI (2020) in mL /min/1.73 sq meters. Sodium 145 136 - 145 mmol/L 09/23/2024 6:46 AM EDT [facility] Potassium 4.1 3.4 - 4.5 mmol/L 09/23/2024 6:46 AM EDT [facility] Chloride 113(H) 98 - 107 mmol/L 09/23/2024 6:46 AM EDT [facility] CO2 24 20 - 31 mmol/L 09/23/2024 6:46 AM EDT [facility] Calcium 8.7 8.7 - 10.5 mg/dL 09/23/2024 6:46 AM EDT [facility] Alkaline Phosphatase 85 45 - 128 U/L 09/23/2024 6:46 AM EDT [facility] Aspartate Aminotrans (AST) 18 <34 U/L 09/23/2024 6:46 AM EDT [facility] Alanine Aminotrans (ALT) 10 10 - 49 U/L 09/23/2024 6:46 AM EDT [facility] Bilirubin, Total 0.5 0.3 - 1.2 mg/dL 09/23/2024 6:46 AM EDT [facility] Protein, Total 6.1 5.7 - 8.2 g/dL 09/23/2024 6:46 AM EDT [facility] Albumin 4.0 3.4 - 4.8 g/dL 09/23/2024 6:46 AM EDT [facility] BUN/Creatinine Ratio 12 10.0 - 25.0 Ratio 09/23/2024 6:46 AM EDT [facility] Globulin 2.1 1.5 - 3.9 g/dL 09/23/2024 6:46 AM EDT [facility] Albumin/Globulin Ratio 1.9 1.5 - 2.5 Ratio 09/23/2024 6:46 AM EDT [facility] Anion Gap 8 5 - 15 09/23/2024 6:46 AM EDT [facility] Blood Blood specimen / Unknown 09/23/2024 5:23 AM EDT 09/23/2024 6:13 AM EDT us Selene Grewal MD LAB BLOOD ORDERABLES Final Resul t Performing Organization Address [facility] Co de Phone Number [facility] [address] [place] [address], [place] * (ABNORMAL) Iron and Total Iron Binding Capacity (09/22/2024 11:41 AM EDT) Pathologist [facility] Iron 26(L) 65 - 175 ug/dL 09/22/2024 12:55 PM EDT [facility] UIBC 320 ug/dL 09/22/2024 12:55 PM EDT [facility] Total Iron Binding Capacity 346 250 - 425 ug/dL 09/22/2024 12:55 PM EDT [facility] Iron Sat 8(L) 20 - 50 % 09/22/2024 12:55 PM EDT [facility] 09/22/2024 11:4 1 AM EDT 09/22/2024 12:27 PM EDT us Selene Grewal MD LAB BLOOD ORDERABLES Final Resul t Performing Organization Address [facility] Co de Phone Number [facility] [address] [place] [address], [place] * ECHOCARDIOGRAM COMPREHENSIVE WITH CONTRAST (09/22/2024 10:32 AM EDT) [facility] IVS Mean (F:0.6-0.9, M:0.6-1.0) 1.0 cm IVS [...] AV mean gradient 4.6 mmHg Ao peak danielle mean 1.6 m/s Ao peak danielle 1.6 [...] - 4.17 mIU/L 09/22/2024 6:09 AM EDT [facility] Blood Blood specimen / Unknown 09/22/2024 5:25 AM EDT 09/22/2024 5:35 AM EDT Holly Newton MD LAB BLOOD ORDERABLES Final Resu lt Performing Organization Address City/[facility]/ZIP Co de Phone Number [facility] [address] [place] [address], * (ABNORMAL) Reticulocyte with Index (09/22/2024 5:25 AM EDT) Reticulocyte Count 1.4 0.7 - 2.0 % 09/22/2024 11:39 AM EDT [facility] Reticulocyte, Absolute 47.6 30.0 - 100.0 Thou/uL 09/22/2024 11:39 AM EDT [facility] Reticulocyte Index 0.8(L) 1.0 - 2.0 % 09/22/2024 11:39 AM EDT [facility] Retic Hemoglobin Content 22.60(L) 28 - 35 pg 09/22/2024 11:39 AM EDT [facility] Immature Reticulocyte Fraction 16.0(H) 2.3 - 15.9 % 09/22/2024 11:39 AM EDT [facility] Blood specimen / Unknown 09/22/2024 5:25 AM EDT 09/22/2024 5:35 AM EDT Holly Newton MD LAB BLOOD [place] [address], * (ABNORMAL) Complete Blood Count WITHOUT Differential - Early AM (09/22/2024 5:25 AM EDT) White Blood Cell Count 5.1 4.0 - 11.0 Thou/uL 09/22/2024 5:40 AM EDT [facility] Platelet Count 158 150 - 450 Thou/uL 09/22/2024 5:40 AM EDT [facility] Hemoglobin 8.6(L) 13.0 - 17.7 g/dL 09/22/2024 5:40 AM EDT [facility] Hematocrit 28.1(L) 39.0 - 54.0 % 09/22/2024 5:40 AM EDT [facility] Red Blood Cell Count 3.42(L) 4.50 - 6.20 Mil/uL 09/22/2024 5:40 AM EDT [facility] MCV 82 80 - 100 fL 09/22/2024 5:40 AM EDT [facility] MCH 25.1(L) 27.0 - 31.0 pg 09/22/2024 5:40 AM EDT [facility] MCHC 30.6 30.0 - 36.0 g/dL 09/22/2024 5:40 AM EDT [facility] RDW 14.4 11.5 - 14.5 % 09/22/2024 5:40 AM EDT [facility] MPV 9.8 7.5 - 12.5 fL 09/22/2024 5:40 AM EDT [facility] Blood Blood specimen / Unknown 09/22/2024 5:25 AM EDT 09/22/2024 5:35 AM EDT us Holly Newton MD LAB BLOOD ORDERABLES Final Resu lt [facility] [address] [place] [address], * PHOSPHORUS (09/22/2024 5:25 AM EDT) Phosphorus 2.7 2.4 - 5.1 mg/dL 09/22/2024 6:09 AM EDT [facility] Blood Blood specimen / Unknown 09/22/2024 5:25 AM EDT 09/22/2024 5:35 AM EDT Holly Newton MD LAB BLOOD ORDERABLES Final Resu lt Performing Organization Address City/[facility]/ZIP Co de Phone Number [address] * FERRITIN (09/22/2024 5:25 AM EDT) Ferritin 11 11 - 307 ug/L 09/22/2024 12:34 PM EDT [facility] 09/22/2024 5:25 AM EDT 09/22/2024 5:35 AM EDT Holly Newton MD LAB BLOOD ORDERABLES Final Resu lt Performing Organization Address [facility]/ZIP Co de Phone Number [address] * VITAMIN B12 (09/22/2024 5:25 AM EDT) Vitamin B12 604 211 - 911 pg/mL 09/22/2024 12:34 PM EDT [facility] 09/22/2024 5:25 AM EDT 09/22/2024 5:35 AM EDT Holly Newton MD LAB BLOOD ORDERABLES Final Resu lt Performing Organization Address City/[facility]/ZIP Co de Phone Number [address] from Last 3 Months Insurance [facility] [address] [address] MEDICARE PART A & B Advance Directives Documents on File Type Date Recorded Patient Customer Complaint Service Supervisor Expl anation Advance Directive-Scan 2024 1:55 PM [...] Decision Thoroughly Discussed with: Legally Auth orized Customer Complaint Service Supervisor Name of Legally Authorized Customer Complaint Service Supervisor: Yoon soriano * DNR Date Activated Date Inactivated Comments 09/22/2024 3:16 AM 09/24/2024 11:27 AM Question Answer Comments Decision thoroughly discussed with: Sherly ent arrived with valid State of [place] DNR Transfer form
== END 2024-10-23 11:30 | disposition home or self-care (01) ==
PROVIDERS: Visit Provider Nurse Practitioner Family
DX: I45.9 Conduction disorder, unspecified (principal); R00.1 Bradycardia, unspecified; Z95.0 Presence of cardiac pacemaker; I25.10 Atherosclerotic heart disease of native coronary artery without angina pectoris; I42.9 Cardiomyopathy, unspecified; Z09 Encounter for follow-up examination after completed treatment for conditions other than malignant neoplasm
CPT/HCPCS: 93280; 99214; G2211

== ENCOUNTER → 2024-10-23 09:30 | Outpatient (BNVA) | payer MEDICARE, SELFPAY | PROVIDERS: Visit Provider Nurse Practitioner Family | DX: Z45.018 Encounter for adjustment and management of other part of cardiac pacemaker (principal); Z09 Encounter for follow-up examination after completed treatment for conditions other than malignant neoplasm; I45.9 Conduction disorder, unspecified; R00.1 Bradycardia, unspecified; I42.9 Cardiomyopathy, unspecified; I25.10 Atherosclerotic heart disease of native coronary artery without angina pectoris | CPT/HCPCS: 93280; 99212 ==

== ENCOUNTER 2024-10-28 06:54 | Outpatient (REF) | payer MEDICARE, SELFPAY ==
[2024-10-28 07:56] LABS: Alanine Aminotransferase 54 U/L (0-40); Albumin Level 3.8 g/dL (3.5-5.0); Aspartate Amino Transferase 64 U/L (5-37); Bilirubin Direct < 0.2 mg/dL (0.0-0.5); Bilirubin Total 0.2 mg/dL (0.0-1.0)
[2024-10-28 08:00] LABS: Thyroid Stimulating Hormone 3.55 uIU/mL (0.32-4.0)
[2024-10-28 13:11] LABS: Alkaline Phosphatase 88 U/L (39-117)
== END 2024-10-28 06:55 | disposition home or self-care (01) ==
LOC: HO.HSH3N 06:54
PROVIDERS: Visit Provider Nurse Practitioner
DX: E78.5 Hyperlipidemia, unspecified (principal); I10 Essential (primary) hypertension
CPT/HCPCS: 36415; 80076; 84443

== ENCOUNTER 2024-11-19 14:26 | Outpatient (AMB) | payer MEDICARE, SELFPAY ==
[2024-11-19 14:42] VITALS: BP 134/62; PULSE 66
--- NOTE | 2024-11-19 14:42 | A.OFFVIS_ITS ---
Vital Signs 11/19/24 14:42 Height 5 ft 9 in BP 134/62 Blood Pressure Location Lt brachial Position Sitting Pulse 66 Pulse Source Monitor Intake Visit Reasons: 3-4 wk follow up Marketing Instructor Required: No Box Storage Worker: Box Storage Worker Present Allergies lisinopril (LISINOPRIL) Allergy (Mild, Verified 11/19/24 14:45) UNKNOWN baclofen (BACLOFEN) Allergy (Unknown, Verified 11/19/24 14:45) UNKNOWN shellfish derived (SHELLFISH DERIVED) Allergy (Unknown, Verified 11/19/24 14:45) UNKNOWN Medication List - Last Reconciled 11/19/24 by RUBI Lopez acetaminophen 650 mg PO Q6H PRN allopurinol 50 mg PO DAILY alum-mag hydroxide-simeth 200-200-20 mg/5 mL (Mag-Al Plus) 30 mL PO TID PRN amiodarone 200 mg PO DAILY amlodipine 2.5 mg See Protocol PO DAILY 90 days atorvastatin 40 mg PO BEDTIME 90 days calcium carbonate 500 mg PO TID PRN cholecalciferol (vitamin D3) 50 mcg PO DAILY clopidogrel 75 mg PO DAILY 90 days famotidine 20 mg PO DAILY ferrous gluconate 324 mg PO DAILY lactase 3,000 units PO QID PRN loperamide 2 mg PO Q6H PRN loratadine 10 mg PO BEDTIME mirtazapine 30 mg PO DAILY multivitamin 1 tab PO DAILY ondansetron 4 mg PO Q6H PRN pantoprazole 40 mg PO BID polyethylene glycol 3350 17 grams PO DAILY PRN sertraline 50 mg PO DAILY tamsulosin (Flomax) 0.4 mg PO DAILY thiamine HCl (vitamin B1) 100 mg PO DAILY HPI HPI 3-4 wk follow up: Details: Clifford is an 79-year-old male with past medical history of carotid stenosis, CAD, systolic heart failure, Mobitz 1 AV block who was recently seen in the [facility] ER with junctional bradycardia, rate in the 30s. Arrangements were made for transfer to [facility] in [facility] (due to physician availability) for pacemaker placement. A [employer] dual-chamber pacemaker was placed on 09/24/2024. He was noted to have very frequent ventricular ectopy and was started on amiodarone. He now presents for follow- up. Today he reports he has been doing well since his last visit. He has not had any concerning symptoms. He denies lightheadedness, weakness, presyncope, syncope. No chest discomfort at rest or with activity. No soreness at pacemaker site. No shortness of breath, PND, orthopnea. He is mostly sedentary and ambulates short distances with a walker. At this visit he is sitting in a wheelchair. He has a staff member from his residential facility with him. [facility] Medical History CKD (chronic kidney disease) New onset of congestive heart failure Diverticulitis Dementia Hoffman esophagus Malignant neoplasm of prostate Cirrhosis of liver Surgical History H/O radical prostatectomy Family History Father CAD (coronary artery disease) Social History Household Members: Other Housing: Retirement Alcohol intake: former Patient Tobacco Use Status: Never used Tobacco Advance Directives Date on File: 12/22/21 service: Yes Current occupational status: retired Review of Systems Const All systems reviewed & are unremarkable except as noted in HPI and below ENT Denies dizziness Card Denies chest pain, Denies chest pain at rest, Denies chest pain with activity, Denies rapid heart rate, Denies pedal edema, Denies edema, Denies leg edema, Denies lightheadedness, Denies palpitations, Denies dyspnea, Denies dyspnea on exertion and Denies orthopnea Resp Denies cough, Denies dyspnea and Denies dyspnea on exertion GI Denies hematochezia and Denies change in stool character Musc Details: using wheelchair today - can walk with walker Reports abnormal gait, Denies limited range of motion, Denies muscle cramps, Denies muscle weakness, Denies numbness, Denies radiating pain into limb, Denies stiffness and Denies tingling Neuro Reports abnormal gait, Denies dizziness, Denies numbness and Denies tingling Endo Denies palpitations Physical Exam Vital Signs: Last Vital Signs Pulse 66 11/19/24 14:42 BP 134/62 11/19/24 14:42 Const Other: elderly male sitting in wheelchair General: cooperative, healthy appearing, comfortable and no acute distress Orientation/consciousness: patient oriented x3 Neck Neck: Yes normal visual inspection and Yes no JVD Chest Other: Pacer site left upper chest well approximated, no redness, swelling, drainage Resp Effort & Inspection: normal respiratory effort Auscultation: clear to auscultation bilaterally, no crackles, no rales, no rhonchi and no wheezes Cardio Rate: regular rate Rhythm: regular rhythm Heart sounds: S1 normal heart sound present, S2 normal heart sound present, no gallops, no murmurs and no rubs Neuro General: patient oriented x3 Extrem General: Yes normal to inspection, No no pedal edema and No calf tenderness Psych Appearance: grossly normal Mental Status: mental status grossly normal Speech and movement: Normal speech and movement present Office Procedures Cardiac Device Check Cardiac Device Check Details: Office device check of [employer] dual-chamber pacemaker, battery 11 years, DDD mode, atrial threshold 0.625 volts at 0.4 milliseconds, ventricular threshold 0.625 volts at 0.4 milliseconds, pulse amplitude on auto capture atrial 1.625 volts ventricular 0.875 volts pulse width 0.4 milliseconds, a paced 34%, V paced greater than 99%, 0% AT/AF, no alerts. Reviewed settings with [employer] rep Kayleigh, no changes need to be made at this time due to auto capture. Device implant on 09/24/2024. Next office interrogation due in 6 months. [id number] Cardiac Device Check, pacemaker dual lead Procedure code (CPT) selection complete EKG Details: Today, read by me, atrial sensed, ventricular paced rhythm, rate 66 [id number], Complete Assessment & Plan Assessment & Plan (1) Heart block: Code(s): I45.9 - Conduction disorder, unspecified Category: Medical Plan: Recent findings of Mobitz 1 and third-degree heart block. [facility] eval for significant bradycardia showing junctional rhythm in the 30s. He has since undergone [employer] dual-chamber pacemaker placement and is currently feeling well. (2) Symptomatic bradycardia: Code(s): R00.1 - Bradycardia, unspecified Category: Medical Plan: Resolved (3) Pacemaker: Comment: [employer] dual-chamber pacemaker 09/24/2024 Code(s): Z95.0 - Presence of cardiac pacemaker Category: Medical Plan: Pacemaker site very well healed. Interrogation today shows it is functioning normally. He is currently V pacing greater than 99% of the time. Will plan for pacemaker office check in 6 months and work on setting up remote monitoring. (4) Atherosclerotic cardiovascular disease: Code(s): I25.10 - Atherosclerotic heart disease of [place] coronary artery without angina pectoris Category: Medical Plan: Recent NSTEMI that was managed medically. Last echo 05/07/2024 shows EF 40-45%, mild calcific aortic and mitral valve changes with normal valve Dopplers. He denies any anginal symptoms and he is mostly sedentary. Continue atorvastatin with LDL goal less than 70. Continue Plavix and metoprolol. Signs and symptoms of angina reviewed with him. (5) Cardiomyopathy: Code(s): I42.9 - Cardiomyopathy, unspecified Category: Medical Plan: Cardiomyopathy with EF 40-45%. Thought to be multifactorial with his multiple comorbidities. He does not appear to have heart failure on examination. Continue to manage medically. Continue metoprolol XL for neurohormonal modulation. He is not on Tam or Arb due to CKD, last creatinine 1.69. (6) Hospital discharge follow-up: Code(s): Z09 - Encounter for follow-up examination after completed treatment for conditions other than malignant neoplasm Category: Medical Plan: Discharge summary reviewed. (7) Frequent PVCs: Code(s): I49.3 - Ventricular premature depolarization Category: Medical Plan: While at [facility] the discharge note indicates they were starting amiodarone due to frequent PVCs and to decrease the PVC burden. He continues on amiodarone 200 mg daily. His EKG today does not show PVCs. There are no alerts on his pacemaker interrogation. Labs done 10/28/2024 did show elevation in his liver tests, AST 64 ALT 54, TSH 3.55. Recommend recheck of liver profile if levels are further elevated then will consider stopping amiodarone. Coding Level of Care Code Est Pt Level 3 (99558) Complex EM visit Add On G2211 Diagnoses Heart block I45.9 Symptomatic bradycardia R00.1 Pacemaker Z95.0 Atherosclerotic cardiovascular disease I25.10 Cardiomyopathy I42.9 Hospital discharge follow-up Z09 Frequent PVCs I49.3 CPT Codes Cardiac Device Check - Cardiac Device 2: [id number] Cardiac Device Check, pacemaker dual lead ([id number]) EKG - CPT: 00024-[id number], Complete ([id number]) Time Spent (min) 24
--- OUTSIDE RECORDS SUMMARY | 2024-11-19 17:36 | XMS_ITS | Clinical Summary ---
Author Organization [facility] Address [address] [place] [id number] Care Team Providers Care Flaker Tender Name Role Phone Pcp, No Primary Care Provider Unavailabl e Allergies Active [...] tablet (25 mg total) by mouth daily. Active amiODARONE (PACERONE) 400 MG tabletIndicatio ns:Third degree heart block (HCC),Bradycard ia Take 1 tablet (400 mg total) by mouth 2 (two) times a day. 5 Active amiODARONE (PACERONE) 200 MG tabletIndicatio ns:Third degree heart block (HCC),Bradycard ia Take 1 tablet (200 mg total) by mouth daily. Do not start before September 30, 2024. Active ferrous gluconate (FERGON) 324 MG tabletIndicatio ns:Third degree heart block (HCC) Take 1 tablet (324 mg total) by mouth every morning with breakfast. Take 2 hours before or 4 hours after acid reducers. 5 Active Active Problems Problem Noted Date Diagnosed Date Bradycardia 09/22/2024 AV block 09/22/2024 Encounters Date Type Department Care Team Description 11/03/2024 Documentation [facility] [address] [phone] Lexis Bonilla MA 10/27/2024 Travel 09/28/[address] [phone] Lonnie Mehta MD Remote Patient Monitoring 09/28/2024 Telephone [facility] [address] [place] [phone] Lonnie Mehta MD Advice Only 09/24/2024 11:40 AM EDT Anesthesia Event [facility] - Electrophysiology Laboratory [address] [place] [phone] Emily Castro MD 09/24/2024 11:18 AM EDT - 09/24/2024 1:35 PM EDT Surgery [facility] - Electrophysiology Laboratory [address] [place] [phone] Lonnie Mehta MD Implantation of dual-chamber pacemaker w/dual lead; [id number] 09/22/2024 12:09 AM EDT - 09/25/2024 3:00 PM EDT Hospital Encounter [facility] [address] [phone] Armando Pedroza MD James, Jibin J, MD Kim, Kyung Ho, MD Volney, Giselle Sacha, MD Third degree heart block (HCC) (Primary Dx); AV block; Bradycardia Discharge Disposition: [facility] Facility 09/22/2024 Travel 09/21/2024 Hospital Encounter from Last 3 Months Social History Tobacco Use Types Packs/Day Years Used Date Smoking Tobacco: Never Smokeless Tobacco: Never Tobacco Cessation:Counseling Given: Not Answered Alcohol Use Standard Drinks/Week Comments Not Currently 0 (1 standard drink = 0.6 oz pur e alcohol) [facility] Utilities Answer Date Recorded In the past 12 months has th e electric, gas, oil, or water [employer] threatened to shut off services in your [...] any time in the past 12 m [facility], were you homeless or living in a halfway (including now)? Patient unable to answer 09/22/2024 [...] 62 09/25/2024 11:00 AM EDT Temperature 36.7 C (98.1 F) 09/25/2024 11:00 AM EDT Respiratory Rate 18 09/25/2024 11:0 [...] Care Team (Late st Contact Info) Description 01/26/2025 10:55 AM EDT Appointment [facility] [address] [place] [address] [facility] [address] [place] [address] Lonnie Mehta MD [address] [employer] [facility] [address] [place] [address] Health Maintenance Due Date Last Done Comments DTaP/Tdap/Td Vaccines (1 - Tdap) 09/28/1962 Pneumococcal Vaccines 50+ (1 of 2 - PCV) 09/28/1962 Zoster (Shingles) Vaccine (1 of 2) 09/28/1993 RSV Vaccine 60 years and old er and Patients (1 - 1-dose 75+ series) 09/28/2018 COVID-19 Vaccine (1 - 2023-2 5 season) 2024 Influenza Vaccine 12/25/2024 02/12/2023 Hepatitis B Vaccines Aged Out No long er eligible based on patient's age to complete this topic Medical Devices Implanted Type Area Spring Assembler Supervisor Device Identifier Shelf Expiration Date Model / Serial / Lot [id number] Lead Pacing 58cm 6fr Hlx Ecrdm Bipolar Actfx Xtd Is 1 Tndrl - [id number] Implanted:Qty : 1 on 09/24/2024 by Lnonie Mehta MD at [facility] Lead N/A: Heart [employer] [id number] 06/26/20278TC/58 / [id number] / Lead Pacing 52cm 6fr Hlx Ecrdm Bipolar Actfx Is-1 Conn Xtd - [id number] Implanted:Qty : 1 on 09/24/2024 by Lonnie Mehta MD at [facility] Lead N/A: Heart [employer] [id number] 06/26/2027/52 / [id number] / [id number] Pacemaker Cardiac Thk6mm Assurity Mri 2 Chamber Pls Gntr - [id number] Implanted:Qty : 1 on 09/24/2024 by Lonnie Mehta MD at [facility] Pacemaker Left: Chest Wall [employer] [id number] 01/24/2026 [id number] / [id number] / Procedures Procedure Name Priority Date/Time Associated Diagnosis Comments PM REMOTE EVAL, [id number] Routine 10/27/2024 2:23 PM EDT AV block XR CHEST 1 VIEW Routine 09/25/2024 8:15 [...] AM EDT RETICULOCYTE WITH INDEX Routine 09/23/19 5:25 AM EDT FERRITIN Routine 09/22/2024 5:25 [...] EDT from Last 3 Months Results * PM REMOTE EVAL, [id number] (10/27/2024 2:23 PM EDT) Date Time Interrogation Session ,,[phone] PACEART Implantable Pulse Generator Spring Assembler Supervisor [employer] PACEART Implantable Pulse Generator Model 2272 Assurity MRI PACEART Implantable Pulse Generator Serial Number [id number] PACEART Implantable Pulse Generator Type Pacemaker PACEART Implantable Pulse Generator Implant Date ,250,430,200,00 0 PACEART Implantable Lead Spring Assembler Supervisor [employer] PACEART Implantable Lead Model 8TC Tendril STS PACEART Implantable Lead Serial Number [id number] PACEART Implantable Lead Implant Date ,250,430,200,00 0 PACEART Implantable Lead Polarity Type Bipolar Lead PACEART Implantable Lead Location Detail 1 UNKNOWN PACEART Implantable Lead Location Right Ventricle PACEART Implantable Lead Connection Status Connected PACEART Implantable Lead Spring Assembler Supervisor [employer] PACEART Implantable Lead Model 8TC Tendril STS PACEART Implantable Lead Serial Number [id number] PACEART Implantable Lead Implant Date [id number] PACEART Implantable Lead Polarity Type Bipolar Lead PACEART Implantable Lead Location Detail 1 UNKNOWN PACEART Implantable Lead Location Right Atrium PACEART Implantable Lead Connection Status Connected PACEART Vinod Setting Mode (NBG Code) DDD PACEART Vinod Setting Lower Rate Limit 60 {beats}/ min PACEART Vinod Setting Maximum Tracking Rate 130 {beats}/ min PACEART Vinod Setting Maximum Sensor Rate 130 {beats}/ min PACEART Vinod Setting LEVI Delay Low 150 ms PACEART Vinod Setting PAV Delay Low 200 ms PACEART Vinod Setting PAV Delay High 100 ms PACEART Vinod Setting LEVI Delay High 100 ms PACEART Vinod Setting AT Mode Switch Rate 180 {beats}/ min PACEART Automatic Mode Switch Status VVIR PACEART RA Sensing Polarity Bipolar PACEART RA Sensitivity 0.5 mV PACEART RV Sensing Polarity Bipolar PACEART RV Sensing Anode Location Right Ventricle PACEART RV Sensing Anode Terminal Ring PACEART RV Sensing Cathode Location Right Ventricle PACEART RV Sensing Cathode Terminal Tip PACEART RV Sensitivity 0.5 mV PACEART RA Pacing Polarity Bipolar PACEART Lead Channel Setting Pacing Anode Location Right Atrium PACEART RA Pacing Anode Terminal Ring PACEART Lead Channel Setting Sensing Cathode Location Right Atrium PACEART RA Pacing Cathode Terminal Tip PACEART RA Pacing Pulse Width 0.4 ms PACEART RA Pacing Amplitude 1.625 PACEART RV Pacing Polarity Bipolar PACEART Lead Channel Setting Pacing Anode Location Right Ventricle PACEART RV Pacing Anode Terminal Ring PACEART Lead Channel Setting Sensing Cathode Location Right Ventricle PACEART RV Pacing Cathode Terminal Tip PACEART RV Pacing Pulse Width 0.4 ms PACEART RV Pacing Amplitude 0.875 PACEART RA Lead Channel Status Null PACEART RA Lead Impedance Value 450 ohm PACEART RA Lead Sensing Intrinsic Amplitude 3.6 mV PACEART RA Lead Pacing Threshold Amplitude 0.625 V PACEART RA Lead Pacing Threshold Pulse Width 0.4 ms PACEART RV Lead Channel Status Null PACEART RV Lead Impedance Value 550 ohm PACEART RV Sensing Intrinsic Amplitude 12.0 mV PACEART RV Lead Pacing Threshold Amplitude 0.625 V PACEART RV Lead Pacing Threshold Pulse Width 0.4 ms PACEART Battery Status Middle of Service PACEART Battery Remaining Longevity 131 mo PACEART Battery Voltage 3.04 V PACEART RA Percent Paced-since last reset 43.0 % PACEART RV Percent Paced-since last reset 99.0 % PACEART Vinod Statistic AP TOOL KEEPER Percent 44.0 % PACEART Vinod Statistic TOOL KEEPER Percent 56.0 % PACEART Vinod Statistic AP VS Percent 1.0 % PACEART Vinod Statistic VS Percent 1.0 % PACEART AT/AF [place] Percent 0 % PACEART Anatomical Region Laterality Modality Cardiac Device 10/27/2024 2:00 AM EDT Narrative 10/30/2024 11:21 AM EDT Scheduled [facility] remote pacemaker transmission received. Alert for V percent Pacing greater than limit Normal pacemaker function and stable lead parameters noted. Estimated battery longevity: 10.9 years, >95% remaining capacity Presenting rhythm: Atrial Pacing with Ventricular pacing 60 bpm Since 09/30/2024 Atrial [place]: 0% No atrial arrhythmia's No ventricular arrhythmia's Atrial paced: 43% Ventricular Paced: >99% with a good heart rate histogram. No Anticoagulants Will continue remote monitoring. No Follow up appointment in Namrata Cuadra RN us Lonnie Mehta MD CV CARDIAC SERVICES ORDERABLES F inal Result * XR Chest 1 view (09/25/2024 8:15 [...] lead placement, r/o pneumothorax COMPARISON: None. TECHNIQUE: AP view of the chest. FINDINGS: Heart/Mediastinum: Heart size prominent within normal limits accounting for portable semierect positioning and lower lung volumes. Mild unfolding and atherosclerotic change of the thoracic aorta. Left chest wall pacer is seen with leads overlying the right atrium and right ventricle. Lungs: Low lung volumes. No discrete pneumothorax. Probable minimal streaky atelectasis at the left lung base. Question trace blunting of left costophrenic angle which may indicate trace effusion. Osseous Structures: No acute abnormalities. Procedure Note Saw Camilo MD [...] atelectasis. Question trace left effusion. Marielle DOUGHERTY IMKhushbu DIAGNOSTIC IMAGING ORDER ANDREY Final Result * IMPLANT GENERATOR PACEMAKER WITH DUAL LEAD (09/24/2024 1:06 PM EDT) Anatomical Region Laterality Modality Cardiac Electrop hysiology Narrative 09/24/2024 1:32 PM EDT HISTORY 78 year old male with past medical history dementia, CKD, CHF, BPH, prostate cancer s/p radical prostatectomy, cirrhosis, HTN, mobitz type II who presented to [facility] from ECG with lightheadedness and bradycardia. Transferred to [facility] for further EP evaluation and consideration for pacemaker. Has subsequently shown high degree AVB with a junctional escape. He presents today for a dual PPM. PROCEDURE: The patient was brought to the EP [...] down to the prepectoral fascia. Hemostasis achieved. At this time attention was turned towards cannulation of the axillary vein, achieved via modified seldinger technique on 1 occasions with retention of 1 wires. Over the first Rolla wire a 2088 (58 cm) was placed on the RV septum. The lead was placed and secured via monitored parameters. Thresholds, impedances and sensing were excellent and this lead was delivered without issue. The lead was sutured to the prepectorial fascia. Over the retained wire, a 2088, was advanced to the RAA and fixed in place. Thresholds, impedances and sensing were excellent and this lead was delivered without issue. The lead was sutured to the prepectorial fascia. The pocket was then flushed numerous times with antibiotic solution. The leads were then attached to a new Dual chamber PPM: 2272 Assurity MRI The device and leads were then placed into the pocket, the device itself was fastened to the prepectoral fascia with 0-0 Tycron. Abx envelope was used The pocket was then injected with Dstat for further hemostatic control. The pocket was then closed in 3 layers using 2-0, 3-0 and derma arredondo. Steri-Strips were applied. Sterile dressing was applied. No complications. Estimated blood loss less than 5 ml fluoroscopy time 3 min RESULTS: Dual PPM CONCLUSIONS: --ABX x 7 days --Pain medications. --Will have a PA and lateral film --leave pressure dressing on for 24 hours --instructions given Marielle Tang PA CV ELECTROPHYSIOLOGY ORDERAB LES Final Result * ECG 12 lead (09/24/2024 8:14 AM EDT) Only the most recent of6 resultswithin the time period is included. Ventricular rate 52 BPM EKG [facility] Atrial rate 70 BPM EKG [facility] QRS duration 130 ms EKG [facility] Q-T interval 488 ms EKG [facility] QTC calculation (Bazett) 454 ms EKG [facility] R axis 66 degrees EKG [facility] T axis 33 degrees EKG [facility] 09/24/2024 8:14 AM EDT Narrative EKG [facility] - 09/24/2024 9:28 AM EDT Sinus rhythm with 2nd degree A-V block (Mobitz I) Right bundle branch block Abnormal ECG When compared with ECG of 23-Sep-2024 15:59, (unconfirmed) No significant change was found Confirmed by MD Schaeffer Venu ([id number]) on 09/24/2024 9:28:22 AM Procedure Note Mino Schaeffer MD - 09/24/2024 Sinus rhythm with 2nd degree A-V block (Mobitz I) Right bundle branch block Abnormal ECG When compared with ECG of 23-Sep-2024 15:59, (unconfirmed) No significant change was found Confirmed by MD Schaeffer Venu ([id number]) on 09/24/2024 9:28:22 AM us Snehal Jolley MD ECG ORDERABLES Final Re sult EKG [facility] * MAGNESIUM (09/24/2024 3:10 AM EDT) Only the most recent of3 resultswithin the time period is included. Magnesium 2.0 1.6 - 2.6 mg/dL 09/24/2024 4:50 AM EDT [facility] Blood Blood specimen / Unknown 09/24/2024 3:10 AM EDT 09/24/2024 4:21 AM EDT us Snehal Jolley MD LAB BLOOD ORDERABLES Fin al Result [facility] [address] [place] [address], [place] * (ABNORMAL) BASIC METABOLIC PANEL (09/24/2024 3:10 AM EDT) Only the most recent of2 resultswithin the time period is included. Pathologist [facility] Glucose 86 74 - 106 mg/dL 09/24/2024 4:50 AM EDT [facility] Comment:Fasting: <100 mg/dL, Non-Fasting: <200 mg/dL (ADA 2004) Blood Urea Nitrogen (BUN) 20 9 - 23 mg/dL 09/24/2024 4:50 AM EDT [facility] Creatinine 1.8(H) 0.7 - 1.3 mg/dL 09/24/2024 4:50 AM EDT [facility] eGFR 38(L) >59 09/24/2024 4:50 AM EDT [facility] Comment:CKD-EPI (2020) in mL /min/1.73 sq meters. Sodium 144 136 - 145 mmol/L 09/24/2024 4:50 AM EDT [facility] Potassium 4.4 3.4 - 4.5 mmol/L 09/24/2024 4:50 AM EDT [facility] Chloride 111(H) 98 - 107 mmol/L 09/24/2024 4:50 AM EDT [facility] CO2 24 20 - 31 mmol/L 09/24/2024 4:50 AM EDT [facility] Anion Gap 8 5 - 15 09/24/2024 4:50 AM EDT [facility] Calcium 8.8 8.7 - 10.5 mg/dL 09/24/2024 4:50 AM EDT [facility] BUN/Creatinine Ratio 11 10.0 - 25.0 Ratio 09/24/2024 4:50 AM EDT [facility] Blood Blood specimen / Unknown 09/24/2024 3:10 AM EDT 09/24/2024 4:21 AM EDT us Snehal Jolley MD LAB BLOOD ORDERABLES Fin al Result [facility] [address] [place] [address], [place] * (ABNORMAL) Complete Blood Count, with Differential (09/23/2024 5:23 AM EDT) Only the most recent of2 resultswithin the time period is included. White Blood Cell Count 5.1 4.0 - 11.0 Thou/uL 09/23/2024 6:17 AM EDT [facility] Platelet Count 169 150 - 450 Thou/uL 09/23/2024 6:17 AM EDT [facility] Hemoglobin 9.1(L) 13.0 - 17.7 g/dL 09/23/2024 6:17 AM EDT [facility] Hematocrit 28.6(L) 39.0 - 54.0 % 09/23/2024 6:17 AM EDT [facility] Red Blood Cell Count 3.50(L) 4.50 - 6.20 Mil/uL 09/23/2024 6:17 AM EDT [facility] MCV 82 80 - 100 fL 09/23/2024 6:17 AM EDT [facility] MCH 26.0(L) 27.0 - 31.0 pg 09/23/2024 6:17 AM EDT [facility] MCHC 31.8 30.0 - 36.0 g/dL 09/23/2024 6:17 AM EDT [facility] RDW 14.5 11.5 - 14.5 % 09/23/2024 6:17 AM EDT [facility] MPV 10.3 7.5 - 12.5 fL 09/23/2024 6:17 AM EDT [facility] Neutrophils Auto 55.5 % 09/24/19 6:17 AM EDT [facility] Immature Granulocytes 0.4 % 09/23/2024 6:17 AM EDT [facility] Lymphocytes Auto 29.3 % 09/24/19 6:17 AM EDT [facility] Monocytes Auto 11.6 % 09/23/2024 6:17 AM EDT [facility] Eosinophils Auto 2.6 % 09/24/19 6:17 AM EDT [facility] Basophils Auto 0.6 % 09/23/2024 6:17 AM EDT [facility] Abs Neutrophils Auto 2.83 2.00 - 7.50 Thou/uL 09/23/2024 6:17 AM EDT [facility] Abs Immature Granulocytes 0.02 0.00 - 0.10 Thou/uL 09/23/2024 6:17 AM EDT [facility] Abs Lymphocytes Auto 1.49(L) 1.50 - 4.50 Thou/uL 09/23/2024 6:17 AM EDT [facility] Abs Monocytes Auto 0.59 0.20 - 1.50 Thou/uL 09/23/2024 6:17 AM EDT [facility] Abs Eosinophils Auto 0.13 0.00 - 0.70 Thou/uL 09/23/2024 6:17 AM EDT [facility] Abs Basophils Auto 0.03 0.00 - 0.20 Thou/uL 09/23/2024 6:17 AM EDT [facility] Blood Blood specimen / Unknown 09/23/2024 5:23 AM EDT 09/23/2024 6:13 AM EDT us Selene Grewal MD LAB BLOOD ORDERABLES Final Resul t [facility] [address] [place] [address], * Folate Level (09/23/2024 5:23 AM EDT) Folate, Serum 12.9 >7.2 ng/mL 09/23/2024 11:49 AM EDT Comment:Specimen hemolyzed. Results may be artifactually elevated. Blood Blood specimen / Unknown 09/23/2024 5:23 AM EDT 09/23/2024 6:14 AM EDT us Selene Grewal MD LAB BLOOD ORDERABLES Final Resul t [address] [address], [address] [address] * (ABNORMAL) Comprehensive Metabolic Panel (09/23/2024 5:23 AM EDT) Glucose 87 74 - 106 mg/dL 09/23/2024 6:46 AM EDT [facility] Comment:Fasting: <100 mg/dL, Non-Fasting: <200 mg/dL (ADA 2005) Blood Urea Nitrogen (BUN) 20 9 - 23 mg/dL 09/23/2024 6:46 AM EDT [facility] Creatinine 1.7(H) 0.7 - 1.3 mg/dL 09/23/2024 6:46 AM EDT [facility] eGFR 40(L) >59 09/23/2024 6:46 AM EDT [facility] Comment:CKD-EPI (2020) in mL /min/1.73 sq meters. Sodium 145 136 - 145 mmol/L 09/23/2024 6:46 AM EDT [facility] Potassium 4.1 3.4 - 4.5 mmol/L 09/23/2024 6:46 AM EDT [facility] Chloride 113(H) 98 - 107 mmol/L 09/23/2024 6:46 AM EDT [facility] CO2 24 20 - 31 mmol/L 09/23/2024 6:46 AM EDT [facility] Calcium 8.7 8.7 - 10.5 mg/dL 09/23/2024 6:46 AM EDT [facility] Alkaline Phosphatase 85 45 - 128 U/L 09/23/2024 6:46 AM EDT [facility] Aspartate Aminotrans (AST) 18 <34 U/L 09/23/2024 6:46 AM EDT [facility] Alanine Aminotrans (ALT) 10 10 - 49 U/L 09/23/2024 6:46 AM EDT [facility] Bilirubin, Total 0.5 0.3 - 1.2 mg/dL 09/23/2024 6:46 AM EDT [facility] Protein, Total 6.1 5.7 - 8.2 g/dL 09/23/2024 6:46 AM EDT [facility] Albumin 4.0 3.4 - 4.8 g/dL 09/23/2024 6:46 AM EDT [facility] BUN/Creatinine Ratio 12 10.0 - 25.0 Ratio 09/23/2024 6:46 AM EDT [facility] Globulin 2.1 1.5 - 3.9 g/dL 09/23/2024 6:46 AM EDT [facility] Albumin/Globulin Ratio 1.9 1.5 - 2.5 Ratio 09/23/2024 6:46 AM EDT [facility] Anion Gap 8 5 - 15 09/23/2024 6:46 AM EDT [facility] Blood Blood specimen / Unknown 09/23/2024 5:23 AM EDT 09/23/2024 6:13 AM EDT us Selene rGewal MD LAB BLOOD ORDERABLES Final Resul t [facility] [address] [place] [address], * (ABNORMAL) Iron and Total Iron Binding Capacity (09/22/2024 11:41 AM EDT) Iron 26(L) 65 - 175 ug/dL 09/22/2024 12:55 PM EDT [facility] UIBC 320 ug/dL 09/22/2024 12:55 PM EDT [facility] Total Iron Binding Capacity 346 250 - 425 ug/dL 09/22/2024 12:55 PM EDT [facility] Iron Sat 8(L) 20 - 50 % 09/22/2024 12:55 PM EDT [facility] 09/22/2024 11:4 1 AM EDT 09/22/2024 12:27 PM EDT us Selene Grewal MD LAB BLOOD ORDERABLES Final Resul t [facility] [address] [place] [address], [place] * ECHOCARDIOGRAM COMPREHENSIVE WITH CONTRAST (09/22/2024 10:32 AM EDT) IVS Mean (F:0.6-0.9, M:0.6-1.0) 1.0 cm IVS [...] Modality Ultrasound Narrative 09/22/2024 10:49 AM EDT The left ventricle is normal in size. Wall thickness is normal. Left ventricular systolic function is normal. The quantitative EF by 2D Driscoll biplane is 59%. No wall motion abnormalities are present. Diastolic function could not be accurately assessed. The right ventricle is normal in size. Right ventricular systolic function is normal. The left atrial cavity is severely dilated. No hemoynamically significant valvular abnormalities detected. There is no previous study for comparison [...] previous study for comparison in our system. Holly Newton MD CV ECHO ORDERABLES Final Result * TSH REFLEX FREE T4 (09/22/2024 5:25 AM EDT) TSH, Highly Sensitive 1.72 0.48 - 4.17 mIU/L 09/22/2024 6:09 AM EDT [facility] Blood Blood specimen / Unknown 09/22/2024 5:25 AM EDT 09/22/2024 5:35 AM EDT Holly Newton MD LAB BLOOD ORDERABLES Final Resu lt Performing Organization Address City/[facility]/ZIP Co de Phone Number [facility] [address] [place] [address], [place] * (ABNORMAL) Reticulocyte with Index (09/22/2024 5:25 AM EDT) Reticulocyte Count 1.4 0.7 - 2.0 % 09/22/2024 11:39 AM EDT [facility] Reticulocyte, Absolute 47.6 30.0 - 100.0 Thou/uL 09/22/2024 11:39 AM EDT [facility] Reticulocyte Index 0.8(L) 1.0 - 2.0 % 09/22/2024 11:39 AM EDT [facility] Retic Hemoglobin Content 22.60(L) 28 - 35 pg 09/22/2024 11:39 AM EDT [facility] Immature Reticulocyte Fraction 16.0(H) 2.3 - 15.9 % 09/22/2024 11:39 AM EDT [facility] Blood specimen / Unknown 09/22/2024 5:25 AM EDT 09/22/2024 5:35 AM EDT us Holly Newton MD LAB BLOOD ORDERABLES Final Resu lt Performing Organization Address City/[facility]/ZIP Co de Phone Number [facility] [address] [place] [address], [place] * (ABNORMAL) Complete Blood Count WITHOUT Differential - Early AM (09/22/2024 5:25 AM EDT) White Blood Cell Count 5.1 4.0 - 11.0 Thou/uL 09/22/2024 5:40 AM EDT [facility] Platelet Count 158 150 - 450 Thou/uL 09/22/2024 5:40 AM EDT [facility] Hemoglobin 8.6(L) 13.0 - 17.7 g/dL 09/22/2024 5:40 AM EDT [facility] Hematocrit 28.1(L) 39.0 - 54.0 % 09/22/2024 5:40 AM EDT [facility] Red Blood Cell Count 3.42(L) 4.50 - 6.20 Mil/uL 09/22/2024 5:40 AM EDT [facility] MCV 82 80 - 100 fL 09/22/2024 5:40 AM EDT [facility] MCH 25.1(L) 27.0 - 31.0 pg 09/22/2024 5:40 AM EDT [facility] MCHC 30.6 30.0 - 36.0 g/dL 09/22/2024 5:40 AM EDT [facility] RDW 14.4 11.5 - 14.5 % 09/22/2024 5:40 AM EDT [facility] MPV 9.8 7.5 - 12.5 fL 09/22/2024 5:40 AM EDT [facility] Blood Blood specimen / Unknown 09/22/2024 5:25 AM EDT 09/22/2024 5:35 AM EDT Holly Newton MD LAB BLOOD ORDERABLES Final Resu lt Performing Organization Address City/[facility]/ZIP Co de Phone Number [facility] [address] [place] [address], [place] * PHOSPHORUS (09/22/2024 5:25 AM EDT) Phosphorus 2.7 2.4 - 5.1 mg/dL 09/22/2024 6:09 AM EDT [facility] Blood Blood specimen / Unknown 09/22/2024 5:25 AM EDT 09/22/2024 5:35 AM EDT Holly Newton MD LAB BLOOD [place] [address], [place] * FERRITIN (09/22/2024 5:25 AM EDT) Ferritin 11 11 - 307 ug/L 09/22/2024 12:34 PM EDT [facility] 09/22/2024 5:25 AM EDT 09/22/2024 5:35 AM EDT Holly Newton MD LAB BLOOD ORDERABLES Final Resu lt Performing Organization Address City/[facility]/[place] [address], * VITAMIN B12 (09/22/2024 5:25 AM EDT) Vitamin B12 604 211 - 911 pg/mL 09/22/2024 12:34 PM EDT [facility] 09/22/2024 5:25 AM EDT 09/22/2024 5:35 AM EDT Holly Newton MD LAB BLOOD ORDERABLES Final Resu lt Performing Organization Address [facility]/ZIP Co de Phone Number [address] from Last 3 Months Insurance MEDICARE PART A & B Advance Directives Documents on File Type Date Recorded Patient Director Auto Expl anation Advance Directive-Scan 2024 1:55 PM [...] Decision Thoroughly Discussed with: Legally Auth orized Director Auto Name of Legally Authorized Director Auto: Yoon christie * DNR Date Activated Date Inactivated Comments 09/22/2024 3:16 AM 09/24/2024 11:27 AM Question Answer Comments Decision thoroughly discussed with: Sherly ent arrived with valid State of [place] DNR Transfer form Care Teams Flaker Tender Relationship Specialty Start Date End Date Pcp, No PCP - General General Medicine 11/01/24
== END 2024-11-19 15:31 | disposition home or self-care (01) ==
LOC: HO.HCS 14:26
PROVIDERS: Visit Provider Nurse Practitioner Family
DX: I45.9 Conduction disorder, unspecified (principal); R00.1 Bradycardia, unspecified; Z95.0 Presence of cardiac pacemaker; I25.10 Atherosclerotic heart disease of native coronary artery without angina pectoris; I42.9 Cardiomyopathy, unspecified; Z09 Encounter for follow-up examination after completed treatment for conditions other than malignant neoplasm; I49.3 Ventricular premature depolarization
CPT/HCPCS: 93010; 93280; 99213; G2211

== ENCOUNTER → 2024-11-19 14:26 | Outpatient (BNVA) | payer MEDICARE, SELFPAY | PROVIDERS: Visit Provider Nurse Practitioner Family | DX: Z09 Encounter for follow-up examination after completed treatment for conditions other than malignant neoplasm (principal); Z45.018 Encounter for adjustment and management of other part of cardiac pacemaker; I45.9 Conduction disorder, unspecified; I25.10 Atherosclerotic heart disease of native coronary artery without angina pectoris; I42.9 Cardiomyopathy, unspecified; I49.3 Ventricular premature depolarization; R00.1 Bradycardia, unspecified; R94.31 Abnormal electrocardiogram [ECG] [EKG] | CPT/HCPCS: 93005; 93280; 99212 ==

== ENCOUNTER 2024-11-23 06:19 | Outpatient (REF) | payer MEDICARE, SELFPAY ==
[2024-11-23 07:08] LABS: Alanine Aminotransferase 42 U/L (0-40); Alkaline Phosphatase 82 U/L (39-117); Aspartate Amino Transferase 41 U/L (5-37); Bilirubin Direct < 0.2 mg/dL (0.0-0.5); Bilirubin Total 0.2 mg/dL (0.0-1.0); Total Protein 6.3 g/dL (6.5-8.0)
[2024-11-23 07:22] LABS: Thyroid Stimulating Hormone 2.64 uIU/mL (0.32-4.0)
== END 2024-11-23 06:20 | disposition home or self-care (01) ==
LOC: HO.HSH3N 06:19
PROVIDERS: Registered Nurse; Visit Provider Nurse Practitioner Acute Care
DX: I10 Essential (primary) hypertension (principal); E78.5 Hyperlipidemia, unspecified
CPT/HCPCS: 36415; 80076; 84443

== ENCOUNTER 2024-12-02 06:38 | Outpatient (REF) | payer MEDICARE, SELFPAY ==
[2024-12-02 06:43] LABS: MANUAL DIFF FLAG NO
[2024-12-02 06:59] LABS: Hematocrit 38.8 % (42.0-52.0); Hemoglobin 12.5 g/dl (14.0-18.0); Imm Gran Abs Auto 0.04 X10*3/uL (0.00-0.03); Imm Gran Pct Auto 0.5 % (0.0-0.4); Lymphocytes Absolute Auto 1.5 X10*3/uL (1.2-4.9); Mean Corpuscular HGB Conc 32.2 g/dl (31.0-36.0); Mean Corpuscular Hemoglobin 27.1 pg (27.0-33.0); Mean Corpuscular Volume 84.0 fL (80.0-98.0); NRBC Abs Auto 0.000 X10*3/uL (0.0-0.012); NRBC Pct Auto 0.0 /100WBC (0.0-0.2); Platelet Count 158 X10*3/uL (160-400); Red Blood Count 4.62 X10*6/uL (4.60-5.80); White Blood Count 7.6 X10*3/uL (4.8-10.8)
[2024-12-02 07:13] LABS: Anion Gap 13 (12-20); Blood Urea Nitrogen 26 mg/dL (9-16); Calcium 8.6 mg/dL (8.4-10.2); Carbon Dioxide 22 mmol/L (22-29); Chloride 110 mmol/L (96-108); Estimated Glomerular Filt Rate 33; Potassium 4.0 mmol/L (3.3-5.1); Sodium 141 mmol/L (135-145)
== END 2024-12-02 06:39 | disposition home or self-care (01) ==
LOC: HO.HSH3N 06:38
PROVIDERS: Visit Provider Nurse Practitioner Acute Care
DX: R42 Dizziness and giddiness (principal)
CPT/HCPCS: 36415; 80048; 85025

== ENCOUNTER 2024-12-12 18:34 | Inpatient (IN) | payer OTHER, SELFPAY ==
[2024-12-12] VITALS (11 sets, daily range): BP systolic 107–164; BP diastolic 41–72; PULSE 66–82; RESP 14–23; TEMP 37.4–39.3; O2SAT 88–96; BMI 23.3
--- NOTE | 2024-12-12 | ECG_ITS ---
Test Reason : WEAKNESS Blood Pressure : */* mmHG Vent. Rate : 78 BPM Atrial Rate : 78 BPM P-R Int : 176 ms QRS Dur : 146 ms QT Int : 446 ms P-R-T Axes : 4 -58 60 degrees QTcB Int : 508 ms Atrial-sensed ventricular-paced rhythm Abnormal ECG When compared with ECG of 21-Sep-2024 16:36, Electronic ventricular pacemaker has replaced Wide QRS rhythm Referred By: Generic ED Physician Electronically Signed By: MONICA FRIAS
--- NOTE | ~2024-12-12 | XR_ITS ---
CLINICAL HISTORY: Hypoxia; L Sided Rhonchi 1 view chest x-ray Comparison: CR/SR - XR CHEST 2 VIEWS - 07/20/22 13:13 EST Findings: Right mid lung interstitial opacities are present. The heart is mildly enlarged in size. Left cardiac pacemaker device is present. No acute fracture. IMPRESSION: 1. Right mid lung interstitial opacities suspicious for an infectious/inflammatory process. 2. Mild cardiomegaly. This document has been electronically signed by: Analisa Mcadams on 12/12/2024 20:02:55
--- NOTE | ~2024-12-12 | CT_ITS ---
CLINICAL HISTORY: n v CT abdomen and pelvis without contrast Comparison: CT/OR/SR - CT ABDOMEN PELVIS WITHOUT IV CONTRAST - 12/18/21 11:53 EDT Findings: Patchy and confluent bibasilar airspace opacities are present. Moderate hiatal hernia. The spleen is enlarged. The gallbladder appears completely decompressed. The kidneys, adrenal glands and pancreas are unremarkable. No bowel obstruction or free air. Diverticulosis without evidence of diverticulitis. The bladder is decompressed. Moderate atherosclerotic disease. Diffuse degenerative changes within the visualized spine. Pars defects at L5 resulting grade 1 anterolisthesis. Impression: Bibasilar pneumonia. No acute process within the abdomen or pelvis identified. Several incidental findings. This document has been electronically signed by: David Batista MD on 12/13/2024 09:25:07
--- NOTE | ~2024-12-12 | XR_ITS ---
CLINICAL HISTORY: worsening sob 1 view chest x-ray Comparison: CR/SR - XR CHEST 1 VIEW - 12/14/24 08:[address]/REG/SR - CT ABDOMEN PELVIS WO IV CON - 12/13/24 08:38 EDT Findings: Right lower lobe opacities are similar to the recent prior exam. Left lower lobe opacities are better seen on CT. Mild left basilar atelectasis. No large effusion or pneumothorax. Left subclavian pacemaker with leads in the right atrium and right ventricle. No acute fracture. IMPRESSION: 1. Stable right lower lobe opacities. 2. Left basilar atelectasis. This document has been electronically signed by: Fernando Denson MD on 12/15/2024 18:36:58
--- NOTE | ~2024-12-12 | XR_ITS ---
EXAMINATION: XR CHEST 1 VIEW HISTORY: worsening hypoxia COMPARISON: Comparison is made with the prior examination dated 12/12/2024. FINDINGS: A single AP portable view of the chest performed at 8:07 AM is submitted. A left-sided dual-chamber pacemaker is unchanged in position. There has been mild progression of airspace opacity in the right lung, consistent with pneumonia. The left lung is clear. There is no pleural effusion, pneumothorax, or pulmonary vascular congestion. The heart is normal in size. There is degenerative disc disease of the spine. XR/XR chest 1V IMPRESSION: Right-sided pneumonia. Follow-up is recommended to document resolution. Electronically signed by: Lc Back MD 12/14/2024 09:04 AM EDT
--- NOTE | 2024-12-12 19:09 | ED.GENADULT ---
HPI - General Adult General Chief complaint: Nausea/Vomiting/Diarrhea Stated complaint: vomiting Time Seen by Provider: 12/12/24 19:01 Source: patient Mode of arrival: EMS Limitations: no limitations History of Present Illness ED Provider: Dale DOUGHERTY HPI narrative: The patient is an 79-year-old male with history of CHF, CAD, CVA, prostate CA, and heart block status post pacemaker placed on September 24 of this yea, presenting to the ED for evaluation of nausea and bilious, nonbloody vomiting which began at 17:00. Patient reported abdominal pain to senior care staff however denies abdominal pain on arrival. The patient was found to be febrile with a rectal temperature of 102.7 degrees and hypoxic at 88% on room air improved with FiO2. The patient reports a nonproductive cough, denies associated chest pain, pleurisy, abdominal pain, diarrhea, known sick contacts, or recent trauma. Related Data Home Medications ?Medication ?Instructions ?Recorded ?Confirmed allopurinol 100 mg tablet 50 mg PO DAILY 12/18/21 11/19/24 cholecalciferol (vitamin D3) 50 50 mcg PO DAILY 12/18/21 11/19/24 mcg (2,000 unit) tablet loratadine 10 mg tablet 10 mg PO BEDTIME 12/18/21 11/19/24 pantoprazole 40 mg tablet,delayed 40 mg PO BID 06/17/23 11/19/24 release mirtazapine 30 mg tablet 30 mg PO DAILY 03/02/24 11/19/24 multivitamin 1 tab PO DAILY 05/06/24 11/19/24 thiamine HCl (vitamin B1) 100 mg 100 mg PO DAILY 05/06/24 11/19/24 tablet acetaminophen 325 mg tablet 650 mg PO Q6H PRN Pain (Scale 05/28/24 11/19/24 Score 1-3) aluminum-mag hydroxide-simethicone 30 ml PO TID PRN Heartburn 05/28/24 11/19/24 200 mg-200 mg-20 mg/5 mL oral susp (Mag-Al Plus) calcium carbonate 500 mg PO TID PRN Stomach Upset 05/28/24 11/19/24 famotidine 20 mg tablet 20 mg PO DAILY 05/28/24 11/19/24 lactase 3,000 unit tablet 3,000 unit PO QID PRN Dairy 05/28/24 11/19/24 loperamide 2 mg tablet 2 mg PO Q6H PRN Diarrhea 05/28/24 11/19/24 ondansetron 4 mg disintegrating 4 mg PO Q6H PRN Nausea And Vomiting 05/28/24 11/19/24 tablet polyethylene glycol 3350 17 gram 17 g PO DAILY PRN Constipation 05/28/24 11/19/24 oral powder packet sertraline 50 mg tablet 50 mg PO DAILY 07/29/24 11/19/24 tamsulosin 0.4 mg capsule (Flomax) 0.4 mg PO DAILY 07/29/24 11/19/24 amiodarone 200 mg tablet 200 mg PO DAILY 10/23/24 11/19/24 ferrous gluconate 324 mg (37.5 mg 324 mg PO DAILY 10/23/24 11/19/24 iron) tablet Previous Rx's ?Medication ?Instructions ?Recorded amlodipine 2.5 mg tablet 2.5 mg PO DAILY 90 days #90 tabs 05/08/24 atorvastatin 40 mg tablet 40 mg PO BEDTIME 90 days #90 tabs 05/08/24 clopidogrel 75 mg tablet 75 mg PO DAILY 90 days #90 tabs 05/08/24 Allergies Allergy/AdvReac Type Severity Reaction Status Date / Time lisinopril (LISINOPRIL) Allergy Mild UNKNOWN Verified 12/12/24 18:57 baclofen (BACLOFEN) Allergy Unknown UNKNOWN Verified 12/12/24 18:57 shellfish derived (SHELLFISH Allergy Unknown UNKNOWN Verified 12/12/24 18:57 DERIVED) Review of Systems Review of Systems: Yes all other systems are reviewed and are negative [facility] Past Medical History Medical History CKD (chronic kidney disease) New onset of congestive heart failure Diverticulitis Dementia Hoffman esophagus Malignant neoplasm of prostate Cirrhosis of liver Surgical History H/O radical prostatectomy Family History Family History Father CAD (coronary artery disease) Social History Social History (System 12/02/24 @ 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) Household Members: Other Housing: Longterm Alcohol intake: former Patient Tobacco Use Status: Never used Tobacco Smoked in Last 30 Days: No Use of substances other than those prescribed or required for medical reasons: No Advance Directives: Yes Advance Directives on File: Yes Advance Directives Date on File: 12/22/21 Do you have a plan to hurt others: No Plan service: Yes Current occupational status: retired Physical Exam ED Vital Signs: Vital Signs - 24 hr 12/12/24 18:51 12/12/24 19:25 12/12/24 19:31 Temperature 102.7 F H 102.7 F H Pulse Rate 82 76 82 Respiratory Rate 18 20 23 H Blood Pressure 148/65 H 132/64 128/59 L Pulse Oximetry 91 L 93 94 Oxygen Delivery Method Nasal Cannula Nasal Cannula Nasal Cannula Oxygen Flow Rate 4 4 12/12/24 20:07 12/12/24 20:36 12/12/24 20:45 Temperature 101.8 F H Pulse Rate 76 72 73 Respiratory Rate 22 H 16 16 Blood Pressure 126/61 132/41 L 133/43 L Pulse Oximetry 94 90 L 89 L Oxygen Delivery Method Nasal Cannula Oxymask Oxymask Oxygen Flow Rate 4 7 7 12/12/24 21:17 Temperature 101.1 F H Pulse Rate 67 Respiratory Rate 16 Blood Pressure 107/50 L Pulse Oximetry 95 Oxygen Delivery Method Oxymask Oxygen Flow Rate 7 BMI result Body Mass Index 23.3 CONSTITUTIONAL: The patient appears non-toxic, well nourished and in no acute distress. Vital signs as documented. HEAD: Atraumatic, normocephalic. EYES: EOMs grossly intact, pupils equal, conjunctiva clear, no exudate. ENT: Nares patent, no discharge. Airway patent, no audible stridor, visible mucosa is pink and moist without noted lesions. NECK: Trachea is midline, no obvious masses or gross abnormalities. CHEST: Symmetric movement, normal appearance. LUNGS: LS present with rhonchi noted in the bilateral mid lungs, [id number]. Non-labored work of breathing at rest with a FiO2. CARDIAC: Regular Rhythm, S1/S2 appreciated, no murmurs, rubs or gallops. ABDOMEN: Abdomen soft and non-tender x4 quadrants, no right upper quadrant tenderness, negative rebound, negative Curiel's, no palpable masses or organomegaly. : Deferred. EXTREMITIES: Normal tone, moves all extremities spontaneously without reported pain. No obvious acute injury or deformity noted. NEURO: Alert and oriented x3, CN II-XII appear grossly intact. Cerebellar Functioning grossly intact. No obvious sensory or motor deficits. Speech clear and appropriate. PSYCH: normal affect, appropriate eye contact, fluid speech, with appropriate response to questioning. No reported suicidality or homicidality. SKIN: Warm, dry, color appropriate, normal turgor. No rashes noted. Medications Administered Discontinued Medications Generic Name Dose Route Start Last Admin Trade Name Jacintoq PRN Reason Stop Dose Admin Acetaminophen 975 mg 12/12/24 19:03 12/12/24 19:18 Acetaminophen 325 Mg Tablet PO 12/12/24 19:04 975 mg ONCE ONE Administration Albuterol Sulfate 2.5 mg 12/12/24 22:10 12/12/24 22:16 Albuterol Sulfate (0.083%) 2.5 Mg/3 Ml Vial.Neb INHALE 12/12/24 22:11 2.5 mg ONCE ONE Administration Ceftriaxone Sodium 1 gm 12/12/24 19:02 12/12/24 19:14 Ceftriaxone Sodium 1 Gm Vial IVPUSH 12/12/24 19:03 1 gm ONCE ONE Administration Sodium Chloride 2,148 mls @ 2,148 mls/hr 12/12/24 19:01 12/12/24 20:25 Ns 30 ml/kg infuse over 1 hr (2148 ml) 12/12/24 20:00 Infused IV Infusion .Q1H STA Doxycycline Hyclate 100 mg/ 250 mls @ 166.67 mls/hr 12/12/24 19:02 12/12/24 20:50 Sodium Chloride IV 12/12/24 20:31 Infused ONCE ONE Infusion Ondansetron HCl 4 mg 12/12/24 19:07 12/12/24 19:17 Ondansetron Hcl 4 Mg/2 Ml Vial IVPUSH 12/12/24 19:08 4 mg ONCE ONE Administration Medical Decision Making Medical Decision Making MDM Narrative: 9:51 PM 12/12/2024 (Eula DOUGHERTY): The patient is an 79-year-old male presenting to the ED via EMS for evaluation of new onset nausea, vomiting, fever, and hypoxia. Patient found to be febrile and hypoxic on arrival, requiring FiO2. Patient's lung sounds were adventitious, abdominal exam was benign. Patient treated with IV fluid hydration, antiemetics, and prophylactic antibiotics for suspected respiratory pathology. The patient's laboratory evaluation showed no leukocytosis but did have lactic acidosis of 2.6, normal lipase, normal LFTs, no electrolyte abnormality, there is CKD consistent with patient's baseline, no CLARK. The patient's troponin was negative, EKG was nonischemic. VBG showed no hypercarbia or PH abnormalities. The patient's chest x-ray shows evidence of consolidation consistent with pneumonia. The patient's viral swab is negative. The patient's repeat lactic acid is 1.1, patient will be admitted for pneumonia. Admission/Observation Consideration of admission/observation: Escalation of care including admission/observation considered Lab Data MDM Lab Attestation statement: I reviewed the patient's lab results. 12/12/24 19:07 12/12/24 19:07 Labs: Lab Results 12/12/24 12/12/24 12/12/24 Range/Units 19:07 19:11 19:18 WBC 9.0 (4.8-10.8) X10*3/uL RBC 4.57 L (4.60-5.80) X10*6/uL Hgb 12.9 L (14.0-18.0) g/dl Hct 38.0 L (42.0-52.0) % MCV 83.2 (80.0-98.0) fL MCH 28.2 (27.0-33.0) pg MCHC 33.9 (31.0-36.0) g/dl RDW 18.6 H (11.0-16.0) % Plt Count 138 L (160-400) X10*3/uL MPV 9.4 (9.4-12.4) fL Immature Gran % (Auto) 0.6 H (0.0-0.4) % Neut % (Auto) 77.7 H (45-73) % Lymph % (Auto) 10.8 L (20-40) % [place] % (Auto) 9.8 (2-11) % Eos % (Auto) 0.8 (0-4) % Baso % (Auto) 0.3 (0-2) % Lymph # (Auto) 1.0 L (1.2-4.9) X10*3/uL [place] # (Auto) 0.9 (0.1-1.2) X10*3/uL Eos # (Auto) 0.1 (0.0-0.4) X10*3/uL Baso # (Auto) 0.0 (0.0-0.2) X10*3/uL Abs Immat Gran (auto) 0.05 H (0.00-0.03) X10*3/uL Absolute Neuts (auto) 7.0 (2.0-8.3) x10*3/uL Absolute Nucleated RBC 0.000 (0.0-0.012) X10*3/uL Nucleated RBC % (auto) 0.0 (0.0-0.2) /100WBC Smear Tech's Comments VERIFIED VBG pH 7.32 (7.32-7.43) VBG pCO2 47 mmHg VBG pO2 51 mmHg VBG HCO3 25 (22-26) mmol/L VBG O2 Saturation 75.0 % VBG Base Excess -1.4 mmol/L Sodium 144 (135-145) mmol/L Potassium 4.3 (3.3-5.1) mmol/L Chloride 111 H (96-108) mmol/L Carbon Dioxide 22 (22-29) mmol/L Anion Gap 15 (12-20) BUN 25 H (9-16) mg/dL Creatinine 1.83 H (0.5-1.4) mg/dL Estim Creat Clear Calc 31.6 Estimated GFR 36 Random Glucose 118 H (60-115) mg/dL Lactic Acid 2.6 H* (0.5-2.0) mmol/L Lactic Acid F/U @ 2Hr (0.5-2.0) mmol/L Calcium 8.8 (8.4-10.2) mg/dL Total Bilirubin 0.4 (0.0-1.0) mg/dL AST 49 H (5-37) U/L ALT 50 H (0-40) U/L Alkaline Phosphatase 95 (39-117) U/L Troponin I High Sens 16.2 (<3.5-35.0) ng/L Total Protein 6.8 (6.5-8.0) g/dL Albumin 4.4 (3.5-5.0) g/dL Lipase 23 (8-78) U/L Influenza Type A (PCR) NEGATIVE (Negative) Influenza Type B (PCR) NEGATIVE (Negative) RSV RNA Qual (PCR) NEGATIVE (Negative) SARS-CoV-2 RNA (RT-PCR) NEGATIVE (Negative) 12/12/24 Range/Units 21:19 WBC (4.8-10.8) X10*3/uL RBC (4.60-5.80) X10*6/uL Hgb (14.0-18.0) g/dl Hct (42.0-52.0) % MCV (80.0-98.0) fL MCH (27.0-33.0) pg MCHC (31.0-36.0) g/dl RDW (11.0-16.0) % Plt Count (160-400) X10*3/uL MPV (9.4-12.4) fL Immature Gran % (Auto) (0.0-0.4) % Neut % (Auto) (45-73) % Lymph % (Auto) (20-40) % [place] % (Auto) (2-11) % Eos % (Auto) (0-4) % Baso % (Auto) (0-2) % Lymph # (Auto) (1.2-4.9) X10*3/uL [place] # (Auto) (0.1-1.2) X10*3/uL Eos # (Auto) (0.0-0.4) X10*3/uL Baso # (Auto) (0.0-0.2) X10*3/uL Abs Immat Gran (auto) (0.00-0.03) X10*3/uL Absolute Neuts (auto) (2.0-8.3) x10*3/uL Absolute Nucleated RBC (0.0-0.012) X10*3/uL Nucleated RBC % (auto) (0.0-0.2) /100WBC Smear Tech's Comments VBG pH (7.32-7.43) VBG pCO2 mmHg VBG pO2 mmHg VBG HCO3 (22-26) mmol/L VBG O2 Saturation % VBG Base Excess mmol/L Sodium (135-145) mmol/L Potassium (3.3-5.1) mmol/L Chloride (96-108) mmol/L Carbon Dioxide (22-29) mmol/L Anion Gap (12-20) BUN (9-16) mg/dL Creatinine (0.5-1.4) mg/dL Estim Creat Clear Calc Estimated GFR Random Glucose (60-115) mg/dL Lactic Acid (0.5-2.0) mmol/L Lactic Acid F/U @ 2Hr 1.1 (0.5-2.0) mmol/L Calcium (8.4-10.2) mg/dL Total Bilirubin (0.0-1.0) mg/dL AST (5-37) U/L ALT (0-40) U/L Alkaline Phosphatase (39-117) U/L Troponin I High Sens (<3.5-35.0) ng/L Total Protein (6.5-8.0) g/dL Albumin (3.5-5.0) g/dL Lipase (8-78) U/L Influenza Type A (PCR) (Negative) Influenza Type B (PCR) (Negative) RSV RNA Qual (PCR) (Negative) SARS-CoV-2 RNA (RT-PCR) (Negative) Independent Interpretation I performed an independent interpretation of an: EKG (EKG shows atrial sensed ventricular paced rhythm with a rate of 78, QTC 508. ) Radiology Impression Discussion of test interpretation with radiology: I have reviewed the radiologist's reading. Radiologist Impression: CLINICAL HISTORY: Hypoxia; L Sided Rhonchi 1 view chest x-ray Comparison: CR/SR - XR CHEST 2 VIEWS - 07/20/22 13:13 EST Findings: Right mid lung interstitial opacities are present. The heart is mildly enlarged in size. Left cardiac pacemaker device is present. No acute fracture. IMPRESSION: 1. Right mid lung interstitial opacities suspicious for an infectious/inflammatory process. 2. Mild cardiomegaly. This document has been electronically signed by: Analisa Mcadams on 12/12/2024 20:02:55 External Record Review External record reviewed: Outpatient record Discharge Plan Discharge Clinical Impression: Pneumonia Qualifiers: Pneumonia type: due to unspecified organism Laterality: right Lung location: middle lobe of lung Qualified Code(s): J18.9 - Pneumonia, unspecified organism Patient Disposition: Admitted As Inpatient
[2024-12-12] MEDS: SODIUM CHLORIDE 2148 ML IV (19:14)
[2024-12-12 19:17] LABS: Hemoglobin 12.9 g/dl (14.0-18.0); NRBC Abs Auto 0.000 X10*3/uL (0.0-0.012); NRBC Pct Auto 0.0 /100WBC (0.0-0.2); PLT CLUMP 1; SCAN SMEAR FLAG 1
[2024-12-12 19:19] LABS: Hematocrit 38.0 % (42.0-52.0); Imm Gran Abs Auto 0.05 X10*3/uL (0.00-0.03); Imm Gran Pct Auto 0.6 % (0.0-0.4); Lymphocytes Absolute Auto 1.0 X10*3/uL (1.2-4.9); MANUAL DIFF FLAG SCAN; Mean Corpuscular HGB Conc 33.9 g/dl (31.0-36.0); Mean Corpuscular Hemoglobin 28.2 pg (27.0-33.0); Mean Corpuscular Volume 83.2 fL (80.0-98.0); Red Blood Count 4.57 X10*6/uL (4.60-5.80)
[2024-12-12 19:21] LABS: Venous Blood Gas Refer to POC result
[2024-12-12 19:23] LABS: VBG HCO3 25 mmol/L (22-26); VBG O2 % Saturation 75.0 %
--- NOTE | 2024-12-12 19:23 | PC.NURSE ---
this rn assumed care of pt, pt noted to be febrile and 90% on 4l nc. FARHAT Montiel notified. sepsis alert called.20g placed in left forearm and 18g in right wrist. pt is a&ox4 respirations even and unlabored. pt offers no complaints at this time. pt was noted to have yellow tinged vomit. suction set up at [facility]. vss
[2024-12-12 19:31] LABS: Alanine Aminotransferase 50 U/L (0-40); Albumin Level 4.4 g/dL (3.5-5.0); Alkaline Phosphatase 95 U/L (39-117); Anion Gap 15 (12-20); Aspartate Amino Transferase 49 U/L (5-37); Blood Urea Nitrogen 25 mg/dL (9-16); Calcium 8.8 mg/dL (8.4-10.2); Carbon Dioxide 22 mmol/L (22-29); Chloride 111 mmol/L (96-108); Creatinine Clr Calc Pharmacy 31.6; Estimated Glomerular Filt Rate 36; Lipase 23 U/L (8-78); Potassium 4.3 mmol/L (3.3-5.1); Sodium 144 mmol/L (135-145); Total Protein 6.8 g/dL (6.5-8.0)
--- NOTE | 2024-12-12 19:31 | PC.NURSE ---
rectal probe placed at this time, pt tolerated well
[2024-12-12 19:38] LABS: Troponin-I High Sensitivity 16.2 ng/L (<3.5-35.0)
[2024-12-12 19:39] LABS: Platelet Count 138 X10*3/uL (160-400); White Blood Count 9.0 X10*3/uL (4.8-10.8)
[2024-12-12 20:01] LABS: Resp Syncy Virus RNA Qual PCR NEGATIVE (Negative); SARS COV2 PCR INHOUSE NEGATIVE (Negative)
--- NOTE | 2024-12-12 20:52 | PC.NURSE ---
pt noted to be de sating at 87-88% on 4l nc. pt placed on 7l oxymax, FARHAT Montiel at bedside with pt. pt maintaining airway and offers no complaints.
[2024-12-12 21:12] LABS: Reflex Lactate? Lactic Acid Added
[2024-12-12 21:41] LABS: ~Lactic Acid-LAB USE ONLY 1.1 mmol/L (0.5-2.0)
--- NOTE | 2024-12-12 22:06 | PM.IMHP ---
History of Present Illness Date of Service: 12/12/24 Chief Complaint: nausea/vomiting 79-year-old male with a past medical history of HTN, HLD, CHF, CVA, prostate cancer, heart block status post pacemaker in September 2024; anxiety, depression, soles or home resident; presented to the hospital today with a chief complaint of nausea and vomiting. Patient reported having nausea and vomiting over the past 1 day; denies any abdominal pain. Denies any diarrhea. Denies any food poisoning. Followed by he became hypoxic and short of breath subsequently came to the ER for further evaluation. Denies any chest pain or palpitations. Review of all other systems is negative except mentioned above ER course: Per ER team, patient on presentation noted to be febrile to 101 F; hypoxic; placed on supplemental oxygen; not in respiratory distress; chest x-ray showed right-sided pneumonia. Given antibiotics. 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 CNA) Household Members: Other Housing: Snf Alcohol intake: former Patient Tobacco Use Status: Never used Tobacco Smoked in Last 30 Days: No Use of substances other than those prescribed or required for medical reasons: No Advance Directives: Yes Advance Directives on File: Yes Advance Directives Date on File: 12/22/21 Do you have a plan to hurt others: No Plan service: Yes Current occupational status: retired Meds Allergies Allergy/AdvReac Type Severity Reaction Status Date / Time lisinopril (LISINOPRIL) Allergy Mild UNKNOWN Verified 12/12/24 18:57 baclofen (BACLOFEN) Allergy Unknown UNKNOWN Verified 12/12/24 18:57 shellfish derived (SHELLFISH Allergy Unknown UNKNOWN Verified 12/12/24 18:57 DERIVED) Home Medications ?Medication ?Instructions ?Recorded ?Confirmed ?Last Taken ?Type allopurinol 100 mg tablet 50 mg PO DAILY 12/18/21 11/19/24 12/16/21 History cholecalciferol (vitamin D3) 50 50 mcg PO DAILY 12/18/21 11/19/24 12/17/21 History mcg (2,000 unit) tablet loratadine 10 mg tablet 10 mg PO BEDTIME 12/18/21 11/19/24 12/17/21 History pantoprazole 40 mg tablet,delayed 40 mg PO BID 06/17/23 11/19/24 Unknown History release mirtazapine 30 mg tablet 30 mg PO DAILY 03/02/24 11/19/24 Unknown History multivitamin 1 tab PO DAILY 05/06/24 11/19/24 Unknown History thiamine HCl (vitamin B1) 100 mg 100 mg PO DAILY 05/06/24 11/19/24 Unknown History tablet acetaminophen 325 mg tablet 650 mg PO Q6H PRN Pain (Scale 05/28/24 11/19/24 Unknown History Score 1-3) aluminum-mag hydroxide-simethicone 30 ml PO TID PRN Heartburn 05/28/24 11/19/24 Unknown History 200 mg-200 mg-20 mg/5 mL oral susp (Mag-Al Plus) calcium carbonate 500 mg PO TID PRN Stomach Upset 05/28/24 11/19/24 Unknown History famotidine 20 mg tablet 20 mg PO DAILY 05/28/24 11/19/24 Unknown History lactase 3,000 unit tablet 3,000 unit PO QID PRN Dairy 05/28/24 11/19/24 Unknown History loperamide 2 mg tablet 2 mg PO Q6H PRN Diarrhea 05/28/24 11/19/24 Unknown History ondansetron 4 mg disintegrating 4 mg PO Q6H PRN Nausea And Vomiting 05/28/24 11/19/24 Unknown History tablet polyethylene glycol 3350 17 gram 17 g PO DAILY PRN Constipation 05/28/24 11/19/24 Unknown History oral powder packet sertraline 50 mg tablet 50 mg PO DAILY 07/29/24 11/19/24 Unknown History tamsulosin 0.4 mg capsule (Flomax) 0.4 mg PO DAILY 07/29/24 11/19/24 Unknown History amiodarone 200 mg tablet 200 mg PO DAILY 10/23/24 11/19/24 Unknown History ferrous gluconate 324 mg (37.5 mg 324 mg PO DAILY 10/23/24 11/19/24 Unknown History iron) tablet Physical Exam Vital Signs and Narrative: Vital Signs: Last Vital Signs Temp 101.1 F H 12/12/24 21:17 Pulse 67 12/12/24 21:17 Resp 16 12/12/24 21:17 BP 107/50 L 12/12/24 21:17 Pulse Ox 95 12/12/24 21:17 O2 Del Method Oxymask 12/12/24 21:17 O2 Flow Rate 7 12/12/24 21:17 Oxygen Flow Rate 4 12/12/24 18:51 BMI result Body Mass Index 23.3 Gen: Appears be in no acute distress HEENT: NCAT, Moist mucosa. Pulmonary: Coarse breath sounds CVS: Normal S1-S2 Abdomen: BS+, Soft, Nontender Extremities: Warm well perfused Neuro: Alert and awake. Results Labs 12/12/24 19:07 12/12/24 19:07 Labs: Laboratory Results - last 24 hr 12/12/24 12/12/24 12/12/24 19:07 19:11 19:18 MCV 83.2 MCH 28.2 MCHC 33.9 RDW 18.6 H Plt Count 138 L MPV 9.4 Immature Gran % (Auto) 0.6 H Neut % (Auto) 77.7 H Lymph % (Auto) 10.8 L [place] % (Auto) 9.8 Eos % (Auto) 0.8 Baso % (Auto) 0.3 Lymph # (Auto) 1.0 L [place] # (Auto) 0.9 Eos # (Auto) 0.1 Baso # (Auto) 0.0 Abs Immat Gran (auto) 0.05 H Absolute Neuts (auto) 7.0 Absolute Nucleated RBC 0.000 Nucleated RBC % (auto) 0.0 Smear Tech's Comments VERIFIED VBG pH 7.32 VBG pCO2 47 VBG pO2 51 VBG HCO3 25 VBG O2 Saturation 75.0 VBG Base Excess -1.4 Anion Gap 15 Estim Creat Clear Calc 31.6 Estimated GFR 36 Random Glucose 118 H Lactic Acid 2.6 H* Lactic Acid F/U @ 2Hr Calcium 8.8 Total Bilirubin 0.4 AST 49 H ALT 50 H Alkaline Phosphatase 95 Total Protein 6.8 Albumin 4.4 Lipase 23 Influenza Type A (PCR) NEGATIVE Influenza Type B (PCR) NEGATIVE RSV RNA Qual (PCR) NEGATIVE SARS-CoV-2 RNA (RT-PCR) NEGATIVE 12/12/24 21:19 MCV MCH MCHC RDW Plt Count MPV Immature Gran % (Auto) Neut % (Auto) Lymph % (Auto) [place] % (Auto) Eos % (Auto) Baso % (Auto) Lymph # (Auto) [place] # (Auto) Eos # (Auto) Baso # (Auto) Abs Immat Gran (auto) Absolute Neuts (auto) Absolute Nucleated RBC Nucleated RBC % (auto) Smear Tech's Comments VBG pH VBG pCO2 VBG pO2 VBG HCO3 VBG O2 Saturation VBG Base Excess Anion Gap Estim Creat Clear Calc Estimated GFR Random Glucose Lactic Acid Lactic Acid F/U @ 2Hr 1.1 Calcium Total Bilirubin AST ALT Alkaline Phosphatase Total Protein Albumin Lipase Influenza Type A (PCR) Influenza Type B (PCR) RSV RNA Qual (PCR) SARS-CoV-2 RNA (RT-PCR) Assessment and Plan (1) Pneumonia: Qualifiers: Laterality: right Lung location: middle lobe of lung Pneumonia type: due to unspecified organism Qualified Code(s): J18.9 - Pneumonia, unspecified organism Status: Acute Plan 79-year-old male with a past medical history of HTN, HLD, CHF, CVA, prostate cancer, heart block status post pacemaker in September 2024; anxiety, depression, soles or home resident; presented to the hospital today with a chief complaint of nausea and vomiting/SOB/hypoxia. Noted have pneumonia. Acute hypoxic respiratory failure: Right-sided pneumonia: Suspected aspiration: Aspiration precautions Empirically with ceftriaxone azithromycin Supplemental oxygen p.r.n. Trending pulse oximetry when ready for discharge Hypertension: Blood pressure on soft side. Hold home antihypertensives. CHF: Stable. Monitor for signs of fluid overload. BPH: Continue home Flomax Anxiety/depression: Continue home medications once med rec is completed by the pharmacy in a.m.. DVT prophylaxis: Lovenox Code status: DNR/DNI. Patient has MOLST form. Quality Stroke Does the patient have a stroke diagnosis?: No VTE Prior VTE?: No VTE Risk Level:: Medical - moderate - high VTE Device Contraindication: Treatment Not Indicated VTE Drug Contraindication: N/A - Med Ordered
[2024-12-12] MEDS: Albuterol Sulfate (0.083%) 2.5 MG/3 ML VIAL.NEB INHALE (22:16)
[2024-12-13] VITALS (8 sets, daily range): BP systolic 123–169; BP diastolic 55–78; PULSE 66–77; RESP 16–22; TEMP 36.3–37.2; O2SAT 89–95; BMI 24.5
--- NOTE | 2024-12-13 02:01 | PC.NURSE ---
pt assisted with incontinence care at this time, vss. bed changed
[2024-12-13 04:07] LABS: MANUAL DIFF FLAG NO
[2024-12-13 04:08] LABS: Hematocrit 39.2 % (42.0-52.0); Hemoglobin 13.1 g/dl (14.0-18.0); Imm Gran Abs Auto 0.05 X10*3/uL (0.00-0.03); Imm Gran Pct Auto 0.5 % (0.0-0.4); Lymphocytes Absolute Auto 0.9 X10*3/uL (1.2-4.9); Mean Corpuscular HGB Conc 33.4 g/dl (31.0-36.0); Mean Corpuscular Hemoglobin 28.1 pg (27.0-33.0); Mean Corpuscular Volume 84.1 fL (80.0-98.0); NRBC Abs Auto 0.000 X10*3/uL (0.0-0.012); NRBC Pct Auto 0.0 /100WBC (0.0-0.2); Platelet Count 124 X10*3/uL (160-400); Red Blood Count 4.66 X10*6/uL (4.60-5.80); White Blood Count 10.8 X10*3/uL (4.8-10.8)
[2024-12-13 04:42] LABS: Anion Gap 17 (12-20); Blood Urea Nitrogen 23 mg/dL (9-16); Calcium 8.1 mg/dL (8.4-10.2); Carbon Dioxide 16 mmol/L (22-29); Chloride 116 mmol/L (96-108); Creatinine Clr Calc Pharmacy 34.6; Estimated Glomerular Filt Rate 40; Potassium 4.7 mmol/L (3.3-5.1); Sodium 144 mmol/L (135-145)
--- NOTE | 2024-12-13 06:35 | PC.NURSE ---
pt assisted with incontinence care, justino care and bed change provided. male purewick placed at this time, pt tolerated well. no skin abnormalities noted.
--- NOTE | 2024-12-13 08:13 | PHA.MEDREC ---
Pharmacy Consult ? Medication Reconciliation Pharmacy has completed the medication reconciliation. Utilized list from [facility]
--- NOTE | 2024-12-13 08:34 | PC.NURSE ---
straight cath performed by this RN 18FR coude used, 30cc output. primary RN denisa notified
[2024-12-13 08:52] LABS: Appearance Urine Clear; Glucose Urine UA Negative (Negative); PH 5.0 (5.0-9.0); Specific Gravity - Urine 1.020 (1.005-1.025)
[2024-12-13] MEDS: 0.9 % Sodium Chloride Flush 3 ML SYRINGE IVFLUSH ×2 (14:40→20:23)
--- NOTE | 2024-12-13 16:33 | HO.PM.IMPN ---
Subjective Subjective Date of Service: 12/13/24 Interval History: feeling better Physical Exam Exam: Exam: alert oriented to self only lungs diminsihed Vital Signs: Vital Signs: Last Vital Signs Temp 98.4 F 12/13/24 14:43 Pulse 71 12/13/24 14:43 Resp 22 H 12/13/24 14:43 BP 169/73 H 12/13/24 14:43 Pulse Ox 89 L 12/13/24 14:43 O2 Del Method Nasal Cannula 12/13/24 14:43 O2 Flow Rate 2 12/13/24 14:43 Oxygen Flow Rate 4 12/12/24 18:51 BMI result Body Mass Index 24.5 Objective Data Active Medications Acetaminophen (Acetaminophen 325 Mg Tablet) 650 mg PO Q6H PRN PRN Reason: Pain, Mild 1-3,fever,headache Albuterol/Ipratropium (Albuterol/Iprat 2.5/0.5mg 3 Ml Ampul.Neb) 3 ml INHALE RQ4H WHILE AWAKE PRN PRN Reason: sob Calcium Carbonate (Calcium Carbonate 750 Mg Tab.Chew) 750 mg PO Q4H PRN PRN Reason: Heartburn Ceftriaxone Sodium (Ceftriaxone Sodium 1 Gm Vial) 1 gm IVPUSH Q24H SERGIO Enoxaparin Sodium (Enoxaparin Sodium 40 Mg/0.4 Ml Syringe) 40 mg SUBCUT Q24H [facility] Last Admin: 12/12/24 23:38 Dose: 40 mg Documented By: BEKA Doxycycline Hyclate 100 mg/ (Sodium Chloride) 250 mls @ 166.67 mls/hr IV Q12H [facility] Last Infusion: 12/13/24 08:49 Dose: Infused Documented By: GEORGETTE Magnesium Hydroxide (Milk Of Magnesia 30 Ml Oral.Susp) 30 ml PO DAILY PRN PRN Reason: Constipation Melatonin (Melatonin 3 Mg Tablet) 6 mg PO BEDTIME PRN PRN Reason: Insomnia Sodium Chloride (0.9 % Sodium Chloride Flush 3 Ml Syringe) 3 ml IVFLUSH QSHIFT [facility] Last Admin: 12/13/24 14:40 Dose: 3 ml Documented By: LORRAINE Labs 12/13/24 04:02 12/13/24 04:02 Labs: Laboratory Results - last 24 hr 12/12/24 12/12/24 12/12/24 19:07 19:11 19:18 MCV 83.2 MCH 28.2 MCHC 33.9 RDW 18.6 H Plt Count 138 L MPV 9.4 Immature Gran % (Auto) 0.6 H Neut % (Auto) 77.7 H Lymph % (Auto) 10.8 L [place] % (Auto) 9.8 Eos % (Auto) 0.8 Baso % (Auto) 0.3 Lymph # (Auto) 1.0 L [place] # (Auto) 0.9 Eos # (Auto) 0.1 Baso # (Auto) 0.0 Abs Immat Gran (auto) 0.05 H Absolute Neuts (auto) 7.0 Absolute Nucleated RBC 0.000 Nucleated RBC % (auto) 0.0 Smear Tech's Comments VERIFIED VBG pH 7.32 VBG pCO2 47 VBG pO2 51 VBG HCO3 25 VBG O2 Saturation 75.0 VBG Base Excess -1.4 Anion Gap 15 Estim Creat Clear Calc 31.6 Estimated GFR 36 Random Glucose 118 H Lactic Acid 2.6 H* Lactic Acid F/U @ 2Hr Calcium 8.8 Total Bilirubin 0.4 AST 49 H ALT 50 H Alkaline Phosphatase 95 Total Protein 6.8 Albumin 4.4 Lipase 23 Urine Color Urine Appearance Urine pH Ur Specific [place] Urine Protein Urine Glucose (UA) Urine Ketones Urine Blood Urine Nitrite Ur Leukocyte Esterase Urine RBC Urine WBC Ur Squamous Epith Cells Urine Bacteria Hyaline Casts Influenza Type A (PCR) NEGATIVE Influenza Type B (PCR) NEGATIVE RSV RNA Qual (PCR) NEGATIVE SARS-CoV-2 RNA (RT-PCR) NEGATIVE 12/12/24 12/13/24 12/13/24 21:19 04:02 08:35 MCV 84.1 MCH 28.1 MCHC 33.4 RDW 18.8 H Plt Count 124 L MPV 9.4 Immature Gran % (Auto) 0.5 H Neut % (Auto) 83.1 H Lymph % (Auto) 8.6 L [place] % (Auto) 7.4 Eos % (Auto) 0.1 Baso % (Auto) 0.3 Lymph # (Auto) 0.9 L [place] # (Auto) 0.8 Eos # (Auto) 0.0 Baso # (Auto) 0.0 Abs Immat Gran (auto) 0.05 H Absolute Neuts (auto) 9.0 H Absolute Nucleated RBC 0.000 Nucleated RBC % (auto) 0.0 Smear Tech's Comments VBG pH VBG pCO2 VBG pO2 VBG HCO3 VBG O2 Saturation VBG Base Excess Anion Gap 17 Estim Creat Clear Calc 34.6 Estimated GFR 40 Random Glucose 105 Lactic Acid Lactic Acid F/U @ 2Hr 1.1 Calcium 8.1 L D Total Bilirubin AST ALT Alkaline Phosphatase Total Protein Albumin Lipase Urine Color Yellow Urine Appearance Clear Urine pH 5.0 Ur Specific [place] 1.020 Urine Protein Trace Urine Glucose (UA) Negative Urine Ketones Negative Urine Blood Negative Urine Nitrite Negative Ur Leukocyte Esterase Negative Urine RBC 0-2 Urine WBC 0-5 Ur Squamous Epith Cells 0-2 Urine Bacteria None Seen Hyaline Casts 0-2 Influenza Type A (PCR) Influenza Type B (PCR) RSV RNA Qual (PCR) SARS-CoV-2 RNA (RT-PCR) Assessment and Plan (1) Cardiomyopathy: Status: Acute Plan 79M PMH htn, hld, hfref, cva, CKD III, prostate ca, mood disorder, dmeentia presented with fever sepsis and acute hypoxic respiratory failure present on admission, not severe due to pneumonia continue marcella trevizo Acute on Chronic systolic CHF will give dose of IV Lasix, monitor ckd III stable alzheimers dementia stable htn amldoipnie toprol dvt prophylaxis - lovenox dnr/dni reason for continued hospitalization:hypoxia Quality Stroke Does the patient have a stroke diagnosis?: No VTE Prior VTE?: No VTE Risk Level:: Medical - moderate - high VTE Device Contraindication: Treatment Not Indicated VTE Drug Contraindication: N/A - Med Ordered
[2024-12-13] MEDS: Albuterol/Iprat 2.5/0.5MG 3 ML AMPUL.NEB INHALE (16:40)
[2024-12-13] MEDS: Furosemide 40 MG/4 ML VIAL IVPUSH (17:32)
[2024-12-14 04:00] VITALS: BP 153/72; PULSE 77; RESP 18; TEMP 37.1; O2SAT 93
[2024-12-14 06:30] LABS: Hematocrit 34.9 % (42.0-52.0); Hemoglobin 11.2 g/dl (14.0-18.0); Mean Corpuscular HGB Conc 32.1 g/dl (31.0-36.0); Mean Corpuscular Hemoglobin 27.5 pg (27.0-33.0); Mean Corpuscular Volume 85.7 fL (80.0-98.0); NRBC Abs Auto 0.000 X10*3/uL (0.0-0.012); NRBC Pct Auto 0.0 /100WBC (0.0-0.2); Platelet Count 104 X10*3/uL (160-400); Red Blood Count 4.07 X10*6/uL (4.60-5.80); White Blood Count 5.2 X10*3/uL (4.8-10.8)
[2024-12-14 06:49] LABS: Anion Gap 13 (12-20); Blood Urea Nitrogen 20 mg/dL (9-16); Calcium 8.5 mg/dL (8.4-10.2); Carbon Dioxide 23 mmol/L (22-29); Chloride 112 mmol/L (96-108); Creatinine Clr Calc Pharmacy 34.0; Estimated Glomerular Filt Rate 39; Potassium 4.2 mmol/L (3.3-5.1); Sodium 144 mmol/L (135-145)
[2024-12-14 07:54] VITALS: BP 140/67; PULSE 88; RESP 18; TEMP 36.1; O2SAT 90
[2024-12-14] MEDS: Metoprolol Succinate ER 25 MG TAB.ER.24H PO (08:26)
--- NOTE | 2024-12-14 08:51 | P.PNIM_ITS ---
Subjective Subjective Date of Service: 12/14/24 Review of Systems Review of Systems: Yes Unobtainable due to mental condition Physical Exam 2 Exam: Exam: alert oriented to self only lungs diminsihed Vital Signs: Vital Signs: Last Vital Signs Temp 97.0 F 12/14/24 07:54 Pulse 88 12/14/24 07:54 Resp 18 12/14/24 07:54 BP 140/67 H 12/14/24 07:54 Pulse Ox 90 L 12/14/24 07:54 O2 Del Method Oxymask 12/14/24 07:54 O2 Flow Rate 9 12/14/24 07:54 Oxygen Flow Rate 4 12/12/24 18:51 BMI result Body Mass Index 24.5 Objective Data Active Medications Acetaminophen (Acetaminophen 325 Mg Tablet) 650 mg PO Q6H PRN PRN Reason: Pain, Mild 1-3,fever,headache Albuterol/Ipratropium (Albuterol/Iprat 2.5/0.5mg 3 Ml Ampul.Neb) 3 ml INHALE RQ4H WHILE AWAKE PRN PRN Reason: sob Last Admin: 12/13/24 16:40 Dose: 3 ml Documented By: DONALDO Allopurinol (Allopurinol 100 Mg Tablet) 50 mg PO DAILY [facility] Last Admin: 12/14/24 08:26 Dose: 50 mg Documented By: JAE Amiodarone HCl (Amiodarone Hcl 200 Mg Tablet) 200 mg PO DAILY [facility] Last Admin: 12/14/24 08:26 Dose: 200 mg Documented By: JAE Amlodipine Besylate (Amlodipine Besylate 2.5 Mg Tablet) 2.5 mg PO DAILY [facility]; Protocol Last Admin: 12/14/24 08:26 Dose: 2.5 mg Documented By: JAE Atorvastatin Calcium (Atorvastatin Calcium 40 Mg Tablet) 40 mg PO BEDTIME [facility] Last Admin: 12/13/24 20:19 Dose: 40 mg Documented By: RONDA-MODESTAZESara Calcium Carbonate (Calcium Carbonate 750 Mg Tab.Chew) 750 mg PO Q4H PRN PRN Reason: Heartburn Ceftriaxone Sodium (Ceftriaxone Sodium 1 Gm Vial) 1 gm IVPUSH Q24H [facility] Last Admin: 12/13/24 17:33 Dose: 1 gm Documented By: LILLIAN Clopidogrel Bisulfate (Clopidogrel Bisulfate 75 Mg Tablet) 75 mg PO DAILY [facility] Last Admin: 12/14/24 08:26 Dose: 75 mg Documented By: JAE Enoxaparin Sodium (Enoxaparin Sodium 40 Mg/0.4 Ml Syringe) 40 mg SUBCUT Q24H [facility] Last Admin: 12/13/24 20:19 Dose: 40 mg Documented By: ALMITA Doxycycline Hyclate 100 mg/ (Sodium Chloride) 250 mls @ 166.67 mls/hr IV Q12H [facility] Last Infusion: 12/14/24 07:43 Dose: Infused Documented By: JAE Loratadine (Loratadine 10 Mg Tablet) 10 mg PO BEDTIME [facility] Last Admin: 12/13/24 20:19 Dose: 10 mg Documented By: ALMITA Magnesium Hydroxide (Milk Of Magnesia 30 Ml Oral.Susp) 30 ml PO DAILY PRN PRN Reason: Constipation Melatonin (Melatonin 3 Mg Tablet) 6 mg PO BEDTIME PRN PRN Reason: Insomnia Metoprolol Succinate (Metoprolol Succinate Er 25 Mg Tab.Er.24h) 25 mg PO DAILY [facility]; Protocol Last Admin: 12/14/24 08:26 Dose: 25 mg Documented By: JAE Mirtazapine (Mirtazapine 30 Mg Tablet) 30 mg PO BEDTIME [facility] Last Admin: 12/13/24 20:19 Dose: 30 mg Documented By: ALMITA Multivitamins/Vitamin C (Multivitamin Tablet) 1 tab PO DAILY [facility] Last Admin: 12/14/24 08:26 Dose: 1 tab Documented By: JAE Pantoprazole Sodium (Pantoprazole Sodium 20 Mg Tablet.) 40 mg PO BID@0630,1630 [facility] Last Admin: 12/14/24 06:00 Dose: 40 mg Documented By: JAE Sertraline HCl (Sertraline Hcl 50 Mg Tablet) 50 mg PO DAILY [facility] Last Admin: 12/14/24 08:26 Dose: 50 mg Documented By: JAE Sodium Chloride (0.9 % Sodium Chloride Flush 3 Ml Syringe) 3 ml IVFLUSH QSHIFT [facility] Last Admin: 12/14/24 06:02 Dose: Not Given Documented By: JAE Non-Admin Reason: IV Running Tamsulosin HCl (Tamsulosin Hcl 0.4 Mg Capsule) 0.4 mg PO DAILY@1700 [facility] Last Admin: 12/13/24 17:22 Dose: 0.4 mg Documented By: LILLIAN Thiamine HCl (Thiamine Hcl 100 Mg Tablet) 100 mg PO DAILY [facility] Last Admin: 12/14/24 08:26 Dose: 100 mg Documented By: JAE Vitamin D (Cholecalciferol (Vitamin D3) 25 Mcg Tablet) 50 mcg PO DAILY [facility] Last Admin: 12/14/24 08:26 Dose: 50 mcg Documented By: JAE Labs 12/14/24 05:44 12/14/24 05:44 Labs: Laboratory Results - last 24 hr 12/13/24 12/14/24 08:35 05:44 MCV 85.7 MCH 27.5 MCHC 32.1 RDW 18.9 H Plt Count 104 L MPV 10.2 Absolute Nucleated RBC 0.000 Nucleated RBC % (auto) 0.0 Anion Gap 13 Estim Creat Clear Calc 34.0 Estimated GFR 39 Random Glucose 94 Calcium 8.5 Urine Color Yellow Urine Appearance Clear Urine pH 5.0 Ur Specific [place] 1.020 Urine Protein Trace Urine Glucose (UA) Negative Urine Ketones Negative Urine Blood Negative Urine Nitrite Negative Ur Leukocyte Esterase Negative Urine RBC 0-2 Urine WBC 0-5 Ur Squamous Epith Cells 0-2 Urine Bacteria None Seen Hyaline Casts 0-2 Microbiology Microbiology Results: Microbiology 12/12/24 19:11 Blood Culture - Preliminary Blood - Venous No growth after 24 hours. 12/12/24 19:07 Blood Culture - Preliminary Blood - Venous No growth after 24 hours. 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
[2024-12-14] MEDS: Furosemide 40 MG/4 ML VIAL IVPUSH ×2 (09:12→16:44)
[2024-12-14 12:00] VITALS: BP 149/75; PULSE 78; RESP 18; TEMP 36.2; O2SAT 94
--- NOTE | 2024-12-14 12:36 | MHC.CM.PN ---
CM ASSESSMENT COMPLETED W/ DAUGHTER/HCP MY. IMM DELIVERED. PATIENT IS A LTC RESIDENT OF [facility]. HE HAS BEEN RECEIVING PHYSICAL THERAPY AT SNF. MOSTLY USES W/C, BUT ABLE TO USE WALKER AT TIMES. HCP/MOLST ON FILE AND VERIFIED. PCP EDITH BURGOS NP @ [facility]. [facility] CUT [facility] SAW OPERATOR METAL TO INFORM OF ADMISSION AND PLAN FOR TRANSPORT HOME. DP: RETURN TO LTC VIA BLS. CM WILL CONTINUE TO FOLLOW.
--- NOTE | 2024-12-14 14:22 | MHC.SL.SWA ---
Speech Pathologist Impression: Risk of Aspiration, Pharyngeal Dysphagia Risk of Aspiration Due to: Hx CVA, dementia, admitted for PNA Dysphasia Diet Status: Upgrade from Clear Liquid Diet, start on REGULAR/NTL Liquid Consistency and Strategies for Safe Swallow: Liquid Intake Recommendation: [place] Thick Solid Food Consistency: Dietary Recommendations: Regular Additional Modifications to Solid Foods: Patient admitted with R-sided PNA, concern for possible aspiration. Significant history of CVA, dementia, and GI conditions diverticulitis and Hoffman's esophagus. Patient with mild pharyngeal phase dysphagia, incomplete laryngeal elevation and overt signs concerning for penetration/aspiration on trials of thin liquid. Oral phase was unremarkable, patient tolerated solid consistencies without any overt difficulty. Recommend start on REGULAR texture solids and NECTAR THICK liquids, pills WHOLE in PUREE. Oral Medication Intake: Whole with Puree Please contact the pharmacy regarding appropriate crushable or liquid drug formulations that are available whenever modified delivery is recommended. Supervision While Eating and Drinking for Safe Swallow: Direct Supervision (1:1) Foods to Avoid: Mixed consistencies Recommendation for Speech: Inpatient Speech Therapy Frequency/Duration: M-F Date Range for Service Req: Timeline to reassess: PRN Seismic Prospecting Supervisor Clinican/Clinical Fellow: No Supervisory Statement: I have reviewed and agree with the student/clinical fellow's documentation: N/A Speech Language Pathologist: Aida Walker M.A., CCC-FREIGHT WEIGHER
[2024-12-14 15:48] VITALS: BP 149/67; PULSE 73; RESP 18; TEMP 36.2; O2SAT 92
[2024-12-14] MEDS: 0.9 % Sodium Chloride Flush 3 ML SYRINGE IVFLUSH ×2 (15:58→20:49)
--- NOTE | 2024-12-14 16:14 | PC.NURSE ---
Patient pleasantly confused this evening, alert only to self, stated he was [place] [employer] [place] customers.
[2024-12-14 19:07] VITALS: BP 153/65; PULSE 73; RESP 19; TEMP 36.1; O2SAT 92
[2024-12-14 23:21] VITALS: BP 144/65; PULSE 70; RESP 19; TEMP 36.1; O2SAT 92
[2024-12-15] VITALS (13 sets, daily range): BP systolic 114–166; BP diastolic 55–72; PULSE 70–90; RESP 14–18; TEMP 36.2–36.9; O2SAT 90–99
--- NOTE | 2024-12-15 04:31 | PC.NURSE ---
pt noted to de sat lows 80s on 5L via nc. 7L oxymask placed and sats persistent 90-92%
[2024-12-15] MEDS: 0.9 % Sodium Chloride Flush 3 ML SYRINGE IVFLUSH ×3 (08:02→22:05)
[2024-12-15 08:43] LABS: Hematocrit 35.4 % (42.0-52.0); Hemoglobin 11.8 g/dl (14.0-18.0); Mean Corpuscular HGB Conc 33.3 g/dl (31.0-36.0); Mean Corpuscular Hemoglobin 28.0 pg (27.0-33.0); Mean Corpuscular Volume 83.9 fL (80.0-98.0); NRBC Abs Auto 0.000 X10*3/uL (0.0-0.012); NRBC Pct Auto 0.0 /100WBC (0.0-0.2); Platelet Count 116 X10*3/uL (160-400); Red Blood Count 4.22 X10*6/uL (4.60-5.80); White Blood Count 4.8 X10*3/uL (4.8-10.8)
[2024-12-15 09:00] LABS: Anion Gap 14 (12-20); Blood Urea Nitrogen 26 mg/dL (9-16); Calcium 8.5 mg/dL (8.4-10.2); Carbon Dioxide 24 mmol/L (22-29); Chloride 109 mmol/L (96-108); Creatinine Clr Calc Pharmacy 36.2; Estimated Glomerular Filt Rate 42; Potassium 3.5 mmol/L (3.3-5.1); Sodium 143 mmol/L (135-145)
[2024-12-15] MEDS: Metoprolol Succinate ER 25 MG TAB.ER.24H PO (09:11)
[2024-12-15] MEDS: Furosemide 40 MG/4 ML VIAL IVPUSH ×2 (09:12→18:31)
--- NOTE | 2024-12-15 09:32 | HE.PHANOTE ---
DOXY IV TO PO PER POLICY CHANGED FORM 100 BID IV TO PO. NEXT DOSE 12/15
[2024-12-15] MEDS: Albuterol/Iprat 2.5/0.5MG 3 ML AMPUL.NEB INHALE ×3 (09:41→22:05)
--- NOTE | 2024-12-15 09:44 | PC.RT ---
PRN nebulizer treatment administered as requested. Nasal cannula placed correctly in patient's nose
--- NOTE | 2024-12-15 09:53 | HO.PM.IMPN ---
Subjective Subjective Date of Service: 12/15/24 Review of Systems Review of Systems: Yes Unobtainable due to mental condition Physical Exam Exam: Exam: alert oriented to self only lungs diminsihed Vital Signs: Vital Signs: Last Vital Signs Temp 98.4 F 12/15/24 07:22 Pulse 73 12/15/24 09:44 Resp 18 12/15/24 09:44 BP 166/72 H 12/15/24 09:12 Pulse Ox 92 12/15/24 07:22 O2 Del Method Oxymask 12/15/24 07:22 O2 Flow Rate 7 12/15/24 07:22 Oxygen Flow Rate 4 12/12/24 18:51 BMI result Body Mass Index 24.5 Objective Data Active Medications Acetaminophen (Acetaminophen 325 Mg Tablet) 650 mg PO Q6H PRN PRN Reason: Pain, Mild 1-3,fever,headache Albuterol/Ipratropium (Albuterol/Iprat 2.5/0.5mg 3 Ml Ampul.Neb) 3 ml INHALE RQ4H WHILE AWAKE PRN PRN Reason: sob Last Admin: 12/15/24 09:41 Dose: 3 ml Documented By: BHAVESH Allopurinol (Allopurinol 100 Mg Tablet) 50 mg PO DAILY [facility] Last Admin: 12/15/24 09:10 Dose: 50 mg Documented By: PRIYANKA Amiodarone HCl (Amiodarone Hcl 200 Mg Tablet) 200 mg PO DAILY [facility] Last Admin: 12/15/24 09:10 Dose: 200 mg Documented By: PRIYANKA Amlodipine Besylate (Amlodipine Besylate 2.5 Mg Tablet) 2.5 mg PO DAILY [facility]; Protocol Last Admin: 12/15/24 09:10 Dose: 2.5 mg Documented By: PRIYANKA Atorvastatin Calcium (Atorvastatin Calcium 40 Mg Tablet) 40 mg PO BEDTIME [facility] Last Admin: 12/14/24 20:45 Dose: 40 mg Documented By: RADHA Calcium Carbonate (Calcium Carbonate 750 Mg Tab.Chew) 750 mg PO Q4H PRN PRN Reason: Heartburn Ceftriaxone Sodium (Ceftriaxone Sodium 1 Gm Vial) 1 gm IVPUSH Q24H [facility] Last Admin: 12/14/24 19:35 Dose: 1 gm Documented By: RADHA Clopidogrel Bisulfate (Clopidogrel Bisulfate 75 Mg Tablet) 75 mg PO DAILY [facility] Last Admin: 12/15/24 09:10 Dose: 75 mg Documented By: PRIYANKA Doxycycline Monohydrate (Doxycycline Monohydrate 100 Mg Capsule) 100 mg PO Q12H [facility] Enoxaparin Sodium (Enoxaparin Sodium 40 Mg/0.4 Ml Syringe) 40 mg SUBCUT Q24H [facility] Last Admin: 12/14/24 20:46 Dose: 40 mg Documented By: RADHA Furosemide (Furosemide 40 Mg/4 Ml Vial) 40 mg IVPUSH BID@0900,1800 [facility]; Protocol Last Admin: 12/15/24 09:12 Dose: 40 mg Documented By: PRIYANKA Loratadine (Loratadine 10 Mg Tablet) 10 mg PO BEDTIME [facility] Last Admin: 12/14/24 20:45 Dose: 10 mg Documented By: RADHA Magnesium Hydroxide (Milk Of Magnesia 30 Ml Oral.Susp) 30 ml PO DAILY PRN PRN Reason: Constipation Melatonin (Melatonin 3 Mg Tablet) 6 mg PO BEDTIME PRN PRN Reason: Insomnia Metoprolol Succinate (Metoprolol Succinate Er 25 Mg Tab.Er.24h) 25 mg PO DAILY [facility]; Protocol Last Admin: 12/15/24 09:11 Dose: 25 mg Documented By: PRIYANKA Mirtazapine (Mirtazapine 30 Mg Tablet) 30 mg PO BEDTIME [facility] Last Admin: 12/14/24 20:45 Dose: 30 mg Documented By: RADHA Multivitamins/Vitamin C (Multivitamin Tablet) 1 tab PO DAILY [facility] Last Admin: 12/15/24 09:10 Dose: 1 tab Documented By: PRIYANKA Pantoprazole Sodium (Pantoprazole Sodium 20 Mg Tablet.Dr) 40 mg PO BID@0630,1630 [facility] Last Admin: 12/15/24 06:09 Dose: 40 mg Documented By: RADHA Sertraline HCl (Sertraline Hcl 50 Mg Tablet) 50 mg PO DAILY [facility] Last Admin: 12/15/24 09:10 Dose: 50 mg Documented By: PRIYANKA Sodium Chloride (0.9 % Sodium Chloride Flush 3 Ml Syringe) 3 ml IVFLUSH QSHIFT [facility] Last Admin: 12/15/24 08:02 Dose: 3 ml Documented By: PRIYANKA Tamsulosin HCl (Tamsulosin Hcl 0.4 Mg Capsule) 0.4 mg PO DAILY@1700 [facility] Last Admin: 12/14/24 16:44 Dose: 0.4 mg Documented By: JERSEY Thiamine HCl (Thiamine Hcl 100 Mg Tablet) 100 mg PO DAILY [facility] Last Admin: 12/15/24 09:10 Dose: 100 mg Documented By: PRIYANKA Vitamin D (Cholecalciferol (Vitamin D3) 25 Mcg Tablet) 50 mcg PO DAILY [facility] Last Admin: 12/15/24 09:09 Dose: 50 mcg Documented By: PRIYANKA Labs 12/15/24 08:09 12/15/24 08:09 Labs: Laboratory Results - last 24 hr 12/15/24 08:09 MCV 83.9 MCH 28.0 MCHC 33.3 RDW 18.5 H Plt Count 116 L MPV 9.4 Absolute Nucleated RBC 0.000 Nucleated RBC % (auto) 0.0 Anion Gap 14 Estim Creat Clear Calc 36.2 Estimated GFR 42 Random Glucose 95 Calcium 8.5 Microbiology Microbiology Results: Microbiology 12/12/24 19:11 Blood Culture - Preliminary Blood - Venous No growth after 48 hours. 12/12/24 19:07 Blood Culture - Preliminary Blood - Venous No growth after 48 hours. Assessment and Plan (1) Cardiomyopathy: Status: Acute Plan 79M PMH htn, hld, hfref, cva, CKD III, prostate ca, mood disorder, dmeentia presented with fever sepsis and acute hypoxic respiratory failure present on admission, not severe due to pneumonia continue rocephin, doxy suspect aspiratoin pneumonia, DIRECTOR CLIENT eval - regular with nectar thick Acute on Chronic systolic CHF continue iv lasix ckd III stable alzheimers dementia stable htn amldoipnie toprol dvt prophylaxis - lovenox dnr/dni reason for continued hospitalization:hypoxia Quality Stroke Does the patient have a stroke diagnosis?: No VTE Prior VTE?: No VTE Risk Level:: Medical - moderate - high VTE Device Contraindication: Treatment Not Indicated VTE Drug Contraindication: N/A - Med Ordered
--- NOTE | 2024-12-15 11:36 | MHC.SL.SWA ---
Speech Pathologist Impression: Risk of Aspiration, Pharyngeal Dysphagia Risk of Aspiration Due to: Neuro condition Dysphasia Diet Status: No Change Liquid Consistency and Strategies for Safe Swallow: Liquid Intake Recommendation: [place] Thick Liquid Intake Strategies: Small Sips No Straws Solid Food Consistency: Dietary Recommendations: Regular Additional Modifications to Solid Foods: Patient admitted with R-sided PNA, concern for possible aspiration. Significant history of CVA, dementia, and GI conditions diverticulitis and Hoffman's esophagus. Patient with mild pharyngeal phase dysphagia, incomplete laryngeal elevation and overt signs concerning for penetration/aspiration on trials of thin liquid. Oral phase was unremarkable, patient tolerated solid consistencies without any overt difficulty. Recommend start on REGULAR texture solids and NECTAR THICK liquids, pills WHOLE in PUREE. Oral Medication Intake: Whole with Puree Please contact the pharmacy regarding appropriate crushable or liquid drug formulations that are available whenever modified delivery is recommended. Compensatory Strategies and Precautions to be Taken for Safe Swallow: Sitting Upright (90 deg) No Straw Small Bites and Sips Rate of Ingestion Change Avoid Specific Foods Supervision While Eating and Drinking for Safe Swallow: Direct Supervision (1:1) Foods to Avoid: Mixed consistencies Swallowing Recommended Treatments: Compens. Strategy Educat. Recommendation for Speech: Inpatient Speech Therapy Frequency/Duration: M-F Date Range for Service Req: Timeline to reassess: Manager Cargo Clinican/Clinical Fellow: No Supervisory Statement: I have reviewed and agree with the student/clinical fellow's documentation: N/A Speech Language Pathologist: Aida Walker M.A., CCC-CODER OPERATOR
[2024-12-15 18:10] LABS: ABG HCO3 22 mmol/L (22-26); ABG O2 % Saturation 93.0 %
[2024-12-15 23:33] LABS: ABG Refer to POC result
[2024-12-16 03:48] VITALS: BP 133/63; PULSE 71; RESP 18; TEMP 36.7; O2SAT 93
[2024-12-16 06:53] LABS: Hematocrit 34.4 % (42.0-52.0); Hemoglobin 11.4 g/dl (14.0-18.0); Mean Corpuscular HGB Conc 33.1 g/dl (31.0-36.0); Mean Corpuscular Hemoglobin 27.9 pg (27.0-33.0); Mean Corpuscular Volume 84.1 fL (80.0-98.0); NRBC Abs Auto 0.000 X10*3/uL (0.0-0.012); NRBC Pct Auto 0.0 /100WBC (0.0-0.2); Platelet Count 118 X10*3/uL (160-400); Red Blood Count 4.09 X10*6/uL (4.60-5.80); White Blood Count 5.0 X10*3/uL (4.8-10.8)
[2024-12-16 07:06] LABS: Venous Blood Gas Refer to POC result
[2024-12-16 07:08] LABS: VBG HCO3 27 mmol/L (22-26); VBG O2 % Saturation 90.0 %
[2024-12-16 07:15] LABS: Anion Gap 15 (12-20); Blood Urea Nitrogen 34 mg/dL (9-16); Calcium 8.7 mg/dL (8.4-10.2); Carbon Dioxide 25 mmol/L (22-29); Chloride 107 mmol/L (96-108); Creatinine Clr Calc Pharmacy 29.2; Estimated Glomerular Filt Rate 33; Potassium 3.5 mmol/L (3.3-5.1); Sodium 143 mmol/L (135-145)
[2024-12-16 07:37] VITALS: BP 124/60; PULSE 65; RESP 12; TEMP 36.4; O2SAT 92
--- NOTE | 2024-12-16 08:34 | HO.PM.IMPN ---
Subjective Subjective Date of Service: 12/16/24 Interval History: sob improving Physical Exam Vital Signs: Vital Signs: Last Vital Signs Temp 97.6 F 12/16/24 07:37 Pulse 65 12/16/24 07:37 Resp 12 12/16/24 07:37 BP 124/60 12/16/24 07:37 Pulse Ox 92 12/16/24 07:37 O2 Del Method Oxymask 12/16/24 07:37 O2 Flow Rate 6 12/16/24 07:37 Oxygen Flow Rate 4 12/12/24 18:51 BMI result Body Mass Index 24.5 Objective Data Active Medications Acetaminophen (Acetaminophen 325 Mg Tablet) 650 mg PO Q6H PRN PRN Reason: Pain, Mild 1-3,fever,headache Albuterol/Ipratropium (Albuterol/Iprat 2.5/0.5mg 3 Ml Ampul.Neb) 3 ml INHALE RQ4H WHILE AWAKE PRN PRN Reason: sob Last Admin: 12/15/24 22:05 Dose: 3 ml Documented By: LILLIAN Allopurinol (Allopurinol 100 Mg Tablet) 50 mg PO DAILY [facility] Last Admin: 12/15/24 09:10 Dose: 50 mg Documented By: PRIYANKA Amiodarone HCl (Amiodarone Hcl 200 Mg Tablet) 200 mg PO DAILY [facility] Last Admin: 12/15/24 09:10 Dose: 200 mg Documented By: PRIYANKA Amlodipine Besylate (Amlodipine Besylate 2.5 Mg Tablet) 2.5 mg PO DAILY [facility]; Protocol Last Admin: 12/15/24 09:10 Dose: 2.5 mg Documented By: PRIYANKA Atorvastatin Calcium (Atorvastatin Calcium 40 Mg Tablet) 40 mg PO BEDTIME [facility] Last Admin: 12/15/24 20:07 Dose: 40 mg Documented By: RADHA Calcium Carbonate (Calcium Carbonate 750 Mg Tab.Chew) 750 mg PO Q4H PRN PRN Reason: Heartburn Ceftriaxone Sodium (Ceftriaxone Sodium 1 Gm Vial) 1 gm IVPUSH Q24H [facility] Last Admin: 12/15/24 18:30 Dose: 1 gm Documented By: PRIYANKA Clopidogrel Bisulfate (Clopidogrel Bisulfate 75 Mg Tablet) 75 mg PO DAILY [facility] Last Admin: 12/15/24 09:10 Dose: 75 mg Documented By: PRIYANKA Doxycycline Monohydrate (Doxycycline Monohydrate 100 Mg Capsule) 100 mg PO Q12H [facility] Last Admin: 12/16/24 06:08 Dose: 100 mg Documented By: RADHA Enoxaparin Sodium (Enoxaparin Sodium 40 Mg/0.4 Ml Syringe) 40 mg SUBCUT Q24H [facility] Last Admin: 12/15/24 21:59 Dose: 40 mg Documented By: RADHA Loratadine (Loratadine 10 Mg Tablet) 10 mg PO BEDTIME [facility] Last Admin: 12/15/24 20:07 Dose: 10 mg Documented By: RADHA Magnesium Hydroxide (Milk Of Magnesia 30 Ml Oral.Susp) 30 ml PO DAILY PRN PRN Reason: Constipation Melatonin (Melatonin 3 Mg Tablet) 6 mg PO BEDTIME PRN PRN Reason: Insomnia Metoprolol Succinate (Metoprolol Succinate Er 25 Mg Tab.Er.24h) 25 mg PO DAILY [facility]; Protocol Last Admin: 12/15/24 09:11 Dose: 25 mg Documented By: PRIYANKA Mirtazapine (Mirtazapine 30 Mg Tablet) 30 mg PO BEDTIME [facility] Last Admin: 12/15/24 20:07 Dose: 30 mg Documented By: RADHA Multivitamins/Vitamin C (Multivitamin Tablet) 1 tab PO DAILY [facility] Last Admin: 12/15/24 09:10 Dose: 1 tab Documented By: PRIYANKA Pantoprazole Sodium (Pantoprazole Sodium 20 Mg Tablet.Dr) 40 mg PO BID@0630,1630 [facility] Last Admin: 12/16/24 06:08 Dose: 40 mg Documented By: RADHA Sertraline HCl (Sertraline Hcl 50 Mg Tablet) 50 mg PO DAILY [facility] Last Admin: 12/15/24 09:10 Dose: 50 mg Documented By: PRIYANKA Sodium Chloride (0.9 % Sodium Chloride Flush 3 Ml Syringe) 3 ml IVFLUSH QSHIFT [facility] Last Admin: 12/15/24 22:05 Dose: 3 ml Documented By: RADHA Tamsulosin HCl (Tamsulosin Hcl 0.4 Mg Capsule) 0.4 mg PO DAILY@1700 [facility] Last Admin: 12/15/24 16:19 Dose: 0.4 mg Documented By: PRIYANKA Thiamine HCl (Thiamine Hcl 100 Mg Tablet) 100 mg PO DAILY [facility] Last Admin: 12/15/24 09:10 Dose: 100 mg Documented By: PRIYANKA Vitamin D (Cholecalciferol (Vitamin D3) 25 Mcg Tablet) 50 mcg PO DAILY [facility] Last Admin: 12/15/24 09:09 Dose: 50 mcg Documented By: PRIYANKA Labs 12/16/24 06:46 12/16/24 06:46 Labs: Laboratory Results - last 24 hr 12/15/24 12/15/24 12/16/24 08:09 18:06 06:46 MCV 83.9 84.1 MCH 28.0 27.9 MCHC 33.3 33.1 RDW 18.5 H 18.3 H Plt Count 116 L 118 L MPV 9.4 9.1 L Absolute Nucleated RBC 0.000 0.000 Nucleated RBC % (auto) 0.0 0.0 O2 Saturation 93.0 ABG pH at Pt Temp 7.47 H ABG pCO2 at Pt Temp 31 L ABG pO2 at Pt Temp 67 L ABG HCO3 22 ABG Base Excess (Actual) -0.1 VBG pH VBG pCO2 VBG pO2 VBG HCO3 VBG O2 Saturation VBG Base Excess Anion Gap 14 15 Estim Creat Clear Calc 36.2 29.2 Estimated GFR 42 33 Random Glucose 95 99 Calcium 8.5 8.7 12/16/24 06:54 MCV MCH MCHC RDW Plt Count MPV Absolute Nucleated RBC Nucleated RBC % (auto) O2 Saturation ABG pH at Pt Temp ABG pCO2 at Pt Temp ABG pO2 at Pt Temp ABG HCO3 ABG Base Excess (Actual) VBG pH 7.43 VBG pCO2 40 VBG pO2 64 VBG HCO3 27 H VBG O2 Saturation 90.0 VBG Base Excess 2.6 Anion Gap Estim Creat Clear Calc Estimated GFR Random Glucose Calcium Assessment and Plan (1) Cardiomyopathy: Status: Acute Plan 79M PMH htn, hld, hfref, cva, CKD III, prostate ca, mood disorder, dmeentia presented with fever sepsis and acute hypoxic respiratory failure present on admission, not severe due to pneumonia continue rocephin, doxy suspect aspiration pneumonia, BIG DATA ANALYTICS LEAD eval - regular with nectar thick wean o2 as tolerated Acute on Chronic systolic CHF diuresed well, bun and creatinine increasing will hold iv lasix ckd III stable alzheimers dementia stable htn amldoipnie toprol dvt prophylaxis - lovenox dnr/dni reason for continued hospitalization:hypoxia Quality Stroke Does the patient have a stroke diagnosis?: No VTE Prior VTE?: No VTE Risk Level:: Medical - moderate - high VTE Device Contraindication: Treatment Not Indicated VTE Drug Contraindication: N/A - Med Ordered
[2024-12-16] MEDS: 0.9 % Sodium Chloride Flush 3 ML SYRINGE IVFLUSH ×3 (10:15→21:53)
[2024-12-16] MEDS: Metoprolol Succinate ER 25 MG TAB.ER.24H PO (10:19)
--- NOTE | 2024-12-16 10:38 | MHC.CM.PN ---
Per MD rounds patient not medically cleared for dc. No change to dc plan. CM will continue to follow.
--- NOTE | 2024-12-16 15:50 | MHC.SL.SWA ---
Speech Pathologist Impression: Hx esophageal dysphagia Risk of Aspiration Due to: Prior aspiration PNA Hx of CVA Hx of GI involvement Dysphasia Diet Status: Liquid Consistency and Strategies for Safe Swallow: Liquid Intake Recommendation: Ruby Thick Liquid Intake Strategies: Small Sips No Straws Solid Food Consistency: Dietary Recommendations: Regular Additional Modifications to Solid Foods: Patient admitted with R-sided PNA, concern for possible aspiration. Significant history of CVA, dementia, and GI conditions diverticulitis and Hoffman's esophagus. Patient with mild pharyngeal phase dysphagia, incomplete laryngeal elevation and overt signs concerning for penetration/aspiration on trials of thin liquid. Oral phase was unremarkable, patient tolerated solid consistencies without any overt difficulty. Recommend start on REGULAR texture solids and NECTAR THICK liquids, pills WHOLE in PUREE. Oral Medication Intake: Whole with Puree Please contact the pharmacy regarding appropriate crushable or liquid drug formulations that are available whenever modified delivery is recommended. Compensatory Strategies and Precautions to be Taken for Safe Swallow: Sitting Upright (90 deg) No Straw Small Bites and Sips Rate of Ingestion Change Avoid Specific Foods Supervision While Eating and Drinking for Safe Swallow: Direct Supervision (1:1) Foods to Avoid: Mixed consistencies Swallowing Recommended Treatments: Compens. Strategy Educat. Recommendation for Speech: Inpatient Speech Therapy Comment: Pt tolerating diet as ordered, needs intermittent assist with self feeding/opening containers. No changes made to diet at this time. ELECTROENCEPHALOGRAPHIC TECHNOLOGIST to continue monitoring. Frequency/Duration: M-F Date Range for Service Req: Timeline to reassess: Cut Off Man Clinican/Clinical Fellow: No Supervisory Statement: I have reviewed and agree with the student/clinical fellow's documentation: N/A Speech Language Pathologist: Nallely Cifuentes M.S., CCC-ELECTROENCEPHALOGRAPHIC TECHNOLOGIST
[2024-12-16 16:00] VITALS: BP 140/65; PULSE 70; RESP 18; TEMP 36.3; O2SAT 92
[2024-12-16 20:00] VITALS: BP 146/62; PULSE 69; RESP 18; TEMP 36.4; O2SAT 93
[2024-12-16 22:52] VITALS: RESP 18
[2024-12-17] VITALS: O2SAT 94
[2024-12-17 03:39] VITALS: BP 158/72; PULSE 80; RESP 20; TEMP 36.6; O2SAT 95
[2024-12-17 06:25] LABS: Hematocrit 33.8 % (42.0-52.0); Hemoglobin 11.4 g/dl (14.0-18.0); Mean Corpuscular HGB Conc 33.7 g/dl (31.0-36.0); Mean Corpuscular Hemoglobin 28.1 pg (27.0-33.0); Mean Corpuscular Volume 83.3 fL (80.0-98.0); NRBC Abs Auto 0.000 X10*3/uL (0.0-0.012); NRBC Pct Auto 0.0 /100WBC (0.0-0.2); Platelet Count 129 X10*3/uL (160-400); Red Blood Count 4.06 X10*6/uL (4.60-5.80); White Blood Count 5.0 X10*3/uL (4.8-10.8)
[2024-12-17 06:38] LABS: Anion Gap 15 (12-20); Blood Urea Nitrogen 33 mg/dL (9-16); Calcium 8.7 mg/dL (8.4-10.2); Carbon Dioxide 23 mmol/L (22-29); Chloride 110 mmol/L (96-108); Creatinine Clr Calc Pharmacy 32.1; Estimated Glomerular Filt Rate 36; Potassium 3.3 mmol/L (3.3-5.1); Sodium 145 mmol/L (135-145)
[2024-12-17 07:44] VITALS: BP 126/58; PULSE 70; RESP 16; TEMP 36.8; O2SAT 93
[2024-12-17] MEDS: Metoprolol Succinate ER 25 MG TAB.ER.24H PO (10:15)
[2024-12-17] MEDS: 0.9 % Sodium Chloride Flush 3 ML SYRINGE IVFLUSH (10:16)
[2024-12-17 11:31] VITALS: O2SAT 94
--- NOTE | 2024-12-17 12:30 | P.DS_ITS ---
DS: Providers Provider Date of Service: 12/17/24 Date of admission: 12/12/24 22:04 Date of discharge: 12/17/24 Primary care physician: Unknown Physician Attending physician on discharge: Petey Pyle Discharging clinician: Preeti Joshi DS: Diagnosis Discharge Diagnosis (1) Pneumonia: Status: Acute DS: Summary Hospital Course Hospital Course: From H&P on the day of admission 79-year-old male with a past medical history of HTN, HLD, CHF, CVA, prostate cancer, heart block status post pacemaker in September 2024; anxiety, depression, soles or home resident; presented to the hospital today with a chief complaint of nausea and vomiting. Patient reported having nausea and vomiting over the past 1 day; denies any abdominal pain. Denies any diarrhea. Denies any food poisoning. Followed by he became hypoxic and short of breath subsequently came to the ER for further evaluation. Denies any chest pain or palpitations. Review of all other systems is negative except mentioned above ER course: Per ER team, patient on presentation noted to be febrile to 101 F; hypoxic; placed on supplemental oxygen; not in respiratory distress; chest x-ray showed right-sided pneumonia. Given antibiotics. sepsis and acute hypoxic respiratory failure present on admission, not severe due to pneumonia. Treated with IV rocephin, doxy. suspect aspiration pneumonia, CARE ADMINISTRATIVE TECH eval recommend regular with nectar thick liquids. Continue aspiration precautions. No fever, no leukocytosis. Blood cultures negative todate. Did require oxymask, primarily due to mouth breathing, but is now saturating in the mid 90s on 4 L nasal cannula, continue to wean oxygen as tolerated. Due to advanced dementia [facility]. Recommend continue aspiration precautions and ongoing speech therapy. Acute on Chronic systolic CHF treat with IV lasix. diuresed well, bun and creatinine increasing so IV lasix was stopped. Not on Lasix at baseline, will discharge with low-dose Lasix. Monitor renal function closely. ckd III creatinine up and down. Monitor renal function in 1 week. Time Attestation Discharge Coordination Time (in mins): 35 Quality: Safe Use of Opioids Does Pt have an Active Cancer Diagnosis on the Problem List?: No Quality: Stroke Does the patient have a stroke diagnosis?: No Physical Exam Vital Signs: Vital Signs: Last Vital Signs Temp 98.2 F 12/17/24 07:44 Pulse 70 12/17/24 07:44 Resp 16 12/17/24 07:44 BP 126/58 L 12/17/24 07:44 Pulse Ox 94 12/17/24 11:31 O2 Del Method Nasal Cannula 12/17/24 11:31 O2 Flow Rate 4 12/17/24 11:31 Oxygen Flow Rate 4 12/12/24 18:51 BMI result Body Mass Index 24.5 Const: General: cooperative, comfortable, no acute distress, alert and awake Nutritional Appearance: average body habitus Resp: Effort & Inspection: normal respiratory effort, able to speak in complete sentences, no respiratory distress and no use of accessory muscles Cardio: Rate: regular rate Neuro: Other: grossly nonfocal General: moves all extremities DS: Data Data Completed and Pending Labs on day of discharge: Laboratory Results - last 24 hr 12/17/24 05:31 WBC 5.0 RBC 4.06 L Hgb 11.4 L Hct 33.8 L MCV 83.3 MCH 28.1 MCHC 33.7 RDW 18.0 H Plt Count 129 L MPV 10.1 Absolute Nucleated RBC 0.000 Nucleated RBC % (auto) 0.0 Sodium 145 Potassium 3.3 Chloride 110 H Carbon Dioxide 23 Anion Gap 15 BUN 33 H Creatinine 1.80 H Estim Creat Clear Calc 32.1 Estimated GFR 36 Random Glucose 96 Calcium 8.7 Preliminary micro results at discharge 12/12/24 19:11 Blood Culture - Preliminary Blood - Venous No growth after 48 hours. 12/12/24 19:07 Blood Culture - Preliminary Blood - Venous No growth after 48 hours. Discharge Plan Discharge Patient Disposition: er [facility] Discharge Diagnosis: pneumonia CHF Referrals: [facility] [place] [Outside] - 1 Day Referral Note: extermination supervisor care Physician,Unknown J [Physician, Medical] - 1 Week Discharge Medications: New doxycycline monohydrate 100 mg tablet 100 mg PO BID 3 Days Qty: 6 0RF cefuroxime axetil 500 mg tablet 500 mg PO BID 3 Days Qty: 6 0RF furosemide [Lasix] 20 mg tablet 20 mg PO DAILY 30 Days Qty: 30 0RF Continued allopurinol 100 mg Tablet 50 mg PO DAILY loratadine 10 mg Tablet 10 mg PO BEDTIME cholecalciferol (vitamin D3) 50 mcg (2,000 unit) Tablet 50 mcg PO DAILY acetaminophen 325 mg Tablet 650 mg PO BID polyethylene glycol 3350 17 gram Powder In Packet 17 g PO DAILY PRN (Reason: Constipation) famotidine 20 mg Tablet 20 mg PO DAILY PRN (Reason: Heartburn) calcium carbonate 500 mg calcium (1,250 mg) Tablet 500 mg PO Q4H PRN (Reason: Heartburn) lactase 3,000 unit Tablet 3,000 unit PO Q1H PRN (Reason: Lactose Intolerance) Rx Instructions: administer with meals and/or snacks alum-mag hydroxide-simeth [Mag-Al Plus] 200-200-20 mg/5 mL Suspension 30 ml PO TID PRN (Reason: Heartburn) Rx Instructions: administer between meals and at bedtime ondansetron 4 mg Tablet,Disintegrating 4 mg PO Q6H PRN (Reason: Nausea And Vomiting) acetaminophen 325 mg Tablet 650 mg PO Q4H PRN (Reason: Pain (Scale Score 1-3)) ferrous sulfate 325 mg (65 mg iron) Tablet 325 mg PO DAILY metoprolol succinate 25 mg Tablet Extended Release 24 Hr 25 mg PO DAILY multivitamin Tablet 1 tab PO DAILY thiamine HCl (vitamin B1) 100 mg Tablet 100 mg PO DAILY clopidogrel 75 mg Tablet 75 mg PO DAILY 90 Days Qty: 90 0RF amlodipine 2.5 mg Tablet 2.5 mg PO DAILY 90 Days Qty: 90 0RF Protocol: Hold for SBP< HOLD for SBP < : 90 atorvastatin 40 mg Tablet 40 mg PO BEDTIME 90 Days Qty: 90 0RF pantoprazole 40 mg tablet,delayed release (DR/EC) 40 mg PO BID@0630,1630 tamsulosin [Flomax] 0.4 mg capsule 0.4 mg PO DAILY@1700 sertraline 50 mg tablet 50 mg PO DAILY amiodarone 200 mg tablet 200 mg PO DAILY mirtazapine 30 mg tablet 30 mg PO BEDTIME Discharge Orders: Discharge Order (Routine); Ordered 12/17/24 Ordered By: Preeti Joshi Activity on Discharge: As tolerated Stand Alone Forms: Patient Portal Discharge page Print Language: Maori Care Plan Goals: see below Health Concerns: pneumonia, aspiration acute on chronic CHF CKD atelectasis Plan of Treatment: Complete 3 more days of oral antibiotics for pneumonia Started on low-dose Lasix for CHF - monitor renal function/fluid status closely wean supplemental oxygen as tolerated continue aspiration precautions, CARE ADMINISTRATIVE TECH recommends regular texture solids with nectar thick liquids; continue speech therapy incentive spirometry if pt able Assessment: see discharge summary
--- NOTE | 2024-12-17 13:14 | MHC.CM.PN ---
Per PA, patient medically cleared [facility]. Per [facility] at [place], not service connected so [facility]. BLS transport scheduled for 3pm. HCP/daughter, RN, PA and facility aware.
[2024-12-17 14:40] VITALS: BP 145/65; PULSE 68; RESP 16; TEMP 36.4; O2SAT 91
== END 2024-12-17 15:33 | DRG 871 ==
LOC: HO.ED 21:58 → HO.EDOVER 22:22 → HO.IMC 12-13 12:14 → HO.S3 12-14 02:49
PROVIDERS: Internal Medicine; Physician Assistant; Admitting Provider Hospitalist; Emergency Provider Emergency Medicine; PCP Nurse Practitioner Acute Care; Visit Provider Physician Assistant Medical
DX: A41.9 Sepsis, unspecified organism (principal); I50.23 Acute on chronic systolic (congestive) heart failure; J96.01 Acute respiratory failure with hypoxia; J69.0 Pneumonitis due to inhalation of food and vomit; I13.0 Hypertensive heart and chronic kidney disease with heart failure and stage 1 through stage 4 chronic kidney disease, or unspecified chronic kidney disease; J98.11 Atelectasis; Z66 Do not resuscitate; N40.0 Benign prostatic hyperplasia without lower urinary tract symptoms; F41.9 Anxiety disorder, unspecified; F32.A Depression, unspecified; I25.10 Atherosclerotic heart disease of native coronary artery without angina pectoris; G30.9 Alzheimer's disease, unspecified; F02.80 Dementia in other diseases classified elsewhere, unspecified severity, without behavioral disturbance, psychotic disturbance, mood disturbance, and anxiety; N18.30 Chronic kidney disease, stage 3 unspecified; I45.9 Conduction disorder, unspecified; Z95.0 Presence of cardiac pacemaker; Z20.822 Contact with and (suspected) exposure to COVID-19; Z79.02 Long term (current) use of antithrombotics/antiplatelets; Z79.899 Other long term (current) drug therapy
CPT/HCPCS: 36415; 36600; 71045; 74176; 80048; 80053; 81001; 82803; 83605; 83690; 84484; 85025; 85027; 87040; 87637; 92526; 92610; 93005; 94640; 99285; J0696; J1271; J1650; J1938; J2405

== ENCOUNTER → 2024-12-12 19:05 | Outpatient (BNV) | payer MEDICARE, SELFPAY | PROVIDERS: Admitting Provider Hospitalist; Emergency Provider Emergency Medicine; Visit Provider Internal Medicine | DX: R94.31 Abnormal electrocardiogram [ECG] [EKG] (principal) | CPT/HCPCS: 93010 ==

== ENCOUNTER → 2024-12-12 19:07 | Outpatient (BNV) | payer MEDICARE, SELFPAY | PROVIDERS: Visit Provider Radiology Vascular & Interventional Radiology | DX: R91.8 Other nonspecific abnormal finding of lung field (principal); Z95.0 Presence of cardiac pacemaker | CPT/HCPCS: 71045 ==

== ENCOUNTER 2024-12-12 22:04 | Outpatient (BNV) | payer OTHER, MEDICARE, SELFPAY | END 2024-12-15 17:46 | PROVIDERS: Admitting Provider Hospitalist; Emergency Provider Emergency Medicine; Visit Provider Radiology Diagnostic Radiology | DX: J98.11 Atelectasis (principal) | CPT/HCPCS: 71045 ==

== ENCOUNTER 2024-12-12 22:04 | Outpatient (BNV) | payer OTHER, MEDICARE, SELFPAY | END 2024-12-14 07:07 | PROVIDERS: Admitting Provider Hospitalist; Emergency Provider Emergency Medicine; Visit Provider Radiology Diagnostic Radiology | DX: J18.9 Pneumonia, unspecified organism (principal) | CPT/HCPCS: 71045 ==

== ENCOUNTER 2024-12-12 22:04 | Outpatient (BNV) | payer MEDICARE, SELFPAY | END 2024-12-13 07:38 | PROVIDERS: Admitting Provider Hospitalist; Emergency Provider Emergency Medicine; Visit Provider Radiology Vascular & Interventional Radiology | DX: R16.1 Splenomegaly, not elsewhere classified (principal) | CPT/HCPCS: 74176 ==

== ENCOUNTER → 2024-12-12 22:04 | Outpatient (BNV) | payer MEDICARE, SELFPAY | PROVIDERS: Admitting Provider Hospitalist; Emergency Provider Emergency Medicine; Visit Provider Internal Medicine | DX: I42.9 Cardiomyopathy, unspecified (principal) | CPT/HCPCS: 99223; 99232; 99239 ==

== ENCOUNTER 2024-12-19 10:07 | Outpatient (REF) | payer MEDICARE, SELFPAY ==
--- OUTSIDE RECORDS SUMMARY | 2023-10-30 11:00 | XMS_ITS ---
Author Organization [facility] Address [address] [place] [address] Care Team Providers Care Tafe Lecturer Name Role Phone Thais Greenberg Primary Care Provider Unavaila Lc Samuel Unavailable [phone] Jamison Winn MD Unavailable Unavailable REASON FOR VISIT barretts esophagus Encounters Encounter Location Date Provider Diagnosis [facility] [address] [place] [phone] 10/30/2023 Lc Avalos Plan Of Treatment No Information Progress Notes * MARIANNE DAVILADOB: 4 (79 yo M)Acc No.[id number]:10/30/2023 Progress Notes Patient: MARIANNE DELGADO Provider: Lissette Avalos MD :1945 A ge:78 Y S ex:Male Date:10/30/2023 Address:[place] [facility], [address] [place], [place] [phone] Pcp:Thais Greenberg Subjective: * Chief Complaints: * 1 . Barretts esophagus. * Medical History: Objective: * Vitals: Assessment: Plan: * Treatment: * * The named appointment provid er may or may not be the originator of this progress note, and it is not deemed complete until electronically signed by the appointment provider. Sign off status: Pending * Provider: Lissette Avalos MD Date: 10/30/2023 Generated for Néstor akers/Earle/Zuleimaitting on: 12/19/2024 10:11 AM EDT
[2024-12-19 10:21] LABS: MANUAL DIFF FLAG NO
[2024-12-19 10:25] LABS: Hematocrit 33.8 % (42.0-52.0); Hemoglobin 11.2 g/dl (14.0-18.0); Imm Gran Abs Auto 0.03 X10*3/uL (0.00-0.03); Imm Gran Pct Auto 0.5 % (0.0-0.4); Lymphocytes Absolute Auto 0.9 X10*3/uL (1.2-4.9); Mean Corpuscular HGB Conc 33.1 g/dl (31.0-36.0); Mean Corpuscular Hemoglobin 27.9 pg (27.0-33.0); Mean Corpuscular Volume 84.3 fL (80.0-98.0); NRBC Abs Auto 0.000 X10*3/uL (0.0-0.012); NRBC Pct Auto 0.0 /100WBC (0.0-0.2); Platelet Count 142 X10*3/uL (160-400); Red Blood Count 4.01 X10*6/uL (4.60-5.80); White Blood Count 6.5 X10*3/uL (4.8-10.8)
[2024-12-19 10:39] LABS: Anion Gap 14 (12-20); Blood Urea Nitrogen 32 mg/dL (9-16); Calcium 9.0 mg/dL (8.4-10.2); Carbon Dioxide 23 mmol/L (22-29); Chloride 113 mmol/L (96-108); Estimated Glomerular Filt Rate 34; Potassium 3.4 mmol/L (3.3-5.1); Sodium 147 mmol/L (135-145)
[2024-12-19 10:45] LABS: B Type Natriuretic Peptide 92 pg/mL (<100)
== END 2024-12-19 10:08 | disposition home or self-care (01) ==
LOC: HO.HSH3N 10:07
PROVIDERS: Visit Provider Nurse Practitioner Acute Care
DX: I50.9 Heart failure, unspecified (principal)
CPT/HCPCS: 36415; 80048; 83880; 85025

== ENCOUNTER 2024-12-24 06:24 | Outpatient (REF) | payer MEDICARE, SELFPAY ==
--- OUTSIDE RECORDS SUMMARY | 2023-10-30 11:00 | XMS_ITS ---
Author Organization [facility] Address [address] [place] [phone] Care Team Providers Care Gasateria Attendant Name Role Phone Thais Greenberg Primary Care Provider Unavaila Lc Samuel Unavailable [phone] Jamison Winn MD Unavailable Unavailable REASON FOR VISIT barretts esophagus Encounters Encounter Location Date Provider Diagnosis [facility] [address] [place] [phone] 10/30/2023 Lc Avalos Plan Of Treatment No Information Progress Notes * MARIANNE DAVILADOB: 4 (79 yo M)Acc No.[id number]:10/30/2023 Progress Notes Patient: MARIANNE DELGADO Provider: Lissette Avalos MD :1945 A ge:78 Y S ex:Male Date:10/30/2023 Address:[place] [facility] [facility], [address] [place], [place] [id number] Pcp:Thais Greenberg Subjective: * Chief Complaints: * [...] Date: 10/30/2023 Generated for Néstor akers/Earle/Zuleimaitting on: 12/24/2024 06:26 AM EDT
[2024-12-24 06:27] LABS: MANUAL DIFF FLAG NO
[2024-12-24 07:15] LABS: Hematocrit 39.5 % (42.0-52.0); Hemoglobin 13.0 g/dl (14.0-18.0); Imm Gran Abs Auto 0.09 X10*3/uL (0.00-0.03); Imm Gran Pct Auto 1.2 % (0.0-0.4); Lymphocytes Absolute Auto 1.4 X10*3/uL (1.2-4.9); Mean Corpuscular HGB Conc 32.9 g/dl (31.0-36.0); Mean Corpuscular Hemoglobin 28.0 pg (27.0-33.0); Mean Corpuscular Volume 85.1 fL (80.0-98.0); NRBC Abs Auto 0.000 X10*3/uL (0.0-0.012); NRBC Pct Auto 0.0 /100WBC (0.0-0.2); Platelet Count 201 X10*3/uL (160-400); Red Blood Count 4.64 X10*6/uL (4.60-5.80); White Blood Count 7.4 X10*3/uL (4.8-10.8)
[2024-12-24 07:24] LABS: Anion Gap 14 (12-20); Blood Urea Nitrogen 31 mg/dL (9-16); Calcium 9.3 mg/dL (8.4-10.2); Carbon Dioxide 23 mmol/L (22-29); Chloride 115 mmol/L (96-108); Estimated Glomerular Filt Rate 35; Potassium 4.2 mmol/L (3.3-5.1); Sodium 148 mmol/L (135-145)
== END 2024-12-24 06:25 | disposition home or self-care (01) ==
LOC: HO.HSH3N 06:24
PROVIDERS: Visit Provider Nurse Practitioner Acute Care
DX: J96.21 Acute and chronic respiratory failure with hypoxia (principal); J98.4 Other disorders of lung
CPT/HCPCS: 36415; 80048; 85025

== ENCOUNTER → 2025-01-26 23:59 | Outpatient (BNV) | payer MEDICARE, SELFPAY ==
--- NOTE | 2025-02-03 09:59 | A.OFFVIS_ITS ---
Intake Visit Reasons: Remote device check- [facility] Allergies lisinopril (LISINOPRIL) Allergy (Mild, Verified 12/12/24 18:57) UNKNOWN baclofen (BACLOFEN) Allergy (Unknown, Verified 12/12/24 18:57) UNKNOWN shellfish derived (SHELLFISH DERIVED) Allergy (Unknown, Verified 12/12/24 18:57) UNKNOWN PFSH Medical History (Updated 12/25/24 @ 00:02 by Daniel Manuel) Alzheimer disease Cerebral atrophy Intracranial atherosclerosis Carotid stenosis Hypertension TIA (transient ischemic attack) CKD (chronic kidney disease) New onset of congestive heart failure Diverticulitis Dementia Hoffman esophagus Malignant neoplasm of prostate Cirrhosis of liver Surgical History (System 12/02/24 @ 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 CNA) H/O radical prostatectomy Family History Father CAD (coronary artery disease) Social History (System 12/02/24 @ 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 CNA) Household Members: None Housing: House Do you presently have visiting nurse or other home services: No Alcohol intake: former Patient Tobacco Use Status: Never used Tobacco Advance Directives Date on File: 12/22/21 service: No Current occupational status: retired Office Procedures Cardiac Device Check Cardiac Device Check Details: Date of service- 01/26/2025 ; Battery life >10 years; normal lead parameters; AP 39%; [employer] >99%; no significant arrhythmias. Overall normal device function. [id number] Cardiac Device Interrogation, pacemaker Procedure code (CPT) selection complete Assessment & Plan Assessment & Plan (1) Pacemaker: Comment: [employer] dual-chamber pacemaker 09/24/2024 Code(s): Z95.0 - Presence of cardiac pacemaker Category: Medical (2) Heart block: Code(s): I45.9 - Conduction disorder, unspecified Category: Medical Plan x Coding Level of Care Code Procedure Only Diagnoses Pacemaker Z95.0 Heart block I45.9 CPT Codes Cardiac Device Check - Cardiac Device 12: [id number] Cardiac Device Interrogation, pacemaker ([id number])
== END ==
PROVIDERS: PCP Nurse Practitioner Acute Care; Visit Provider Internal Medicine
DX: I45.9 Conduction disorder, unspecified (principal); Z95.0 Presence of cardiac pacemaker
CPT/HCPCS: 93294

== ENCOUNTER 2025-02-01 14:13 | Outpatient (REF) | payer MEDICARE, SELFPAY ==
--- OUTSIDE RECORDS SUMMARY | 2023-10-30 11:00 | XMS_ITS ---
Author Organization [facility] Address [address] [place] [address] Care Team Providers Care Juice Tester Name Role Phone Thais Greenberg Primary Care Provider Unavaila Lc Samuel Unavailable [phone] Jamison Winn MD Unavailable Unavailable REASON FOR VISIT barretts esophagus Encounters Encounter Location Date Provider Diagnosis [facility] [address] [place] [phone] 10/30/2023 Lc Avalos Plan Of Treatment No Information Progress Notes * MARIANNE DAVILADOB: 4 (79 yo M)Acc No.[id number]:10/30/2023 Progress Notes Patient: MARIANNE DELGADO Provider: Lissette Avalos MD :1945 A ge:78 Y S ex:Male Date:10/30/2023 Address:[place] [facility] [place], [address] [place], [place] [phone] Pcp:Thais Greenberg Subjective: * Chief Complaints: * [...] Date: 10/30/2023 Generated for Néstor akers/Earle/Zuleimaitting on: 02/01/2025 04:34 PM EDT
--- NOTE | ~2025-02-01 | FL_ITS ---
EXAMINATION: MODIFIED BARIUM SWALLOW CLINICAL INFORMATION: Dysphagia COMPARISON: None available. TECHNIQUE: Modified barium swallow was performed under lateral fluoroscopy in presence of speech therapist with oral administration of various consistencies of barium FINDINGS: On oral administration of thick barium, puree, solid food coated barium paste there is normal propagation bolus from the oral cavity through the pharynx and esophagus. No laryngeal penetration or aspiration seen. There is no retention of food in the valleculae or piriform sinuses. Interval finding of mild ventral spondylosis at C3-4 and moderate ventricles and despite a bridging osteophytes at C4-5 disc level. FLUOROSCOPY TIME: 1 minute 27 seconds DOSE AREA PRODUCT: 1210 uGy-m2 (microgray-meter squared) FL/FL Modified Barium Swallow IMPRESSION: Unremarkable modified barium swallow exam. Correlate with speech therapy report. Electronically signed by: David Frias MD 02/01/2025 04:42 PM EDT
--- OUTSIDE RECORDS SUMMARY | 2025-02-01 16:34 | XMS_ITS | Clinical Summary ---
Author Organization [facility] Address [address] [place] [address] Care Team Providers Care Ply Splicer Name Role Phone Pcp, No Primary Care [...] Type Department Care Team Description 11/03/2024 Documentation [facility] [place] [address] [id number] Lexis Bonilla MA from Last 3 Months Social History Tobacco Use Types Packs/Day Years Used Date Smoking Tobacco: Never Smokeless Tobacco: Never Tobacco Cessation:Counseling Given: Not Answered Alcohol Use Standard Drinks/Week Comments Not Currently 0 (1 standard drink = 0.6 oz pur e alcohol) [facility] Utilities Answer Date Recorded In [...] any time in the past 12 m [facility], were you homeless or living in a retirement (including now)? Patient unable to answer 09/22/2024 [...] 09/22/2024 5:04 AM EDT Plan of Treatment Health Maintenance Due Date Last Done Comments DTaP/Tdap/Td Vaccines (1 - Tdap) 09/28/1962 Pneumococcal Vaccines 50+ (1 of 2 - PCV) 09/28/1962 Zoster (Shingles) Vaccine (1 of 2) 09/28/1993 RSV Vaccine 60 years and old er and Patients (1 - 1-dose 75+ series) 09/28/2018 Influenza Vaccine 12/25/2024 02/12/2023 COVID-19 Vaccine ( - 2023-2 5 season) 2025 Advance Care Planning Completed 2024 Hepatitis B Vaccines Aged Out No long er eligible based on patient's age to complete this topic Medical Devices Implanted Type Area Environmental Officer Device Identifier Shelf Expiration Date Model / Serial / Lot [id number]/58 Lead Pacing 58cm 6fr Hlx Ecrdm Bipolar Actfx Xtd Is 1 Tndrl - [id number] Implanted:Qty : 1 on 09/24/2024 by Lonnie Mehta MD at [facility] Lead N/A: Heart [employer] [id number] 06/26/2027 2088TC/58 / [id number] / [id number]/52 Lead Pacing 52cm 6fr Hlx Ecrdm Bipolar Actfx Is-1 Conn Xtd - [id number] Implanted:Qty : 1 on 09/24/2024 by Lonnie Mehta MD at [facility] Lead N/A: Heart [employer] [id number] 06/26/20272087TC/52 / [id number] / [id number] Pacemaker Cardiac Thk6mm Assurity Mri 2 Chamber Pls Gntr - [id number] Implanted:Qty : 1 on 09/24/2024 by Lonnie Mehta MD at [facility] Pacemaker Left: Chest Wall [employer] [id number] 01/24/2026 [id number] / [id number] / Insurance MEDICARE PART A & B Advance Directives Documents on File Type Date Recorded Patient Automatic Lathe Operator Expl anation Advance Directive-Scan 2024 1:55 PM [...] Decision Thoroughly Discussed with: Legally Auth orized Automatic Lathe Operator Name of Legally Authorized Automatic Lathe Operator: Yoon soriano * DNR Date Activated Date Inactivated Comments 09/22/2024 3:16 AM 09/24/2024 11:27 AM Question Answer Comments Decision thoroughly discussed with: Sherly ent arrived with valid State [place] DNR Transfer form Care Teams Ply Splicer Relationship Specialty Start Date End Date Pcp, No PCP - General General Medicine 11/01/24
--- OUTSIDE RECORDS SUMMARY | 2025-02-01 16:34 | XMS_ITS | Encounter Summary ---
Author Organization [facility] Address [address] [facility] [address] [place] [address] Care Team Providers Care Marine Service Manager Name Role Phone Unavailable Primary Care Provider Unavailabl e Encounter Details Date Type Department Care Team (Late st Contact Info) Description 06/20/2023 Abstract [facility] D[facility] [address] [place] [address] Robin Pastor, ANEESH [address] [place] [address] Social History Tobacco Use Types Packs/Day Years [...]
--- OUTSIDE RECORDS SUMMARY | 2025-02-01 16:34 | XMS_ITS | Encounter Summary ---
Author Organization [facility] Address [address] [facility] [address] [place] [address] Care Team Providers Care Art Supervisor Name Role Phone Unavailable Primary Care Provider Unavailabl e Encounter Details Date Type Department Care Team (Late st Contact Info) Description 05/03/2023 Abstract [facility] D[facility] [address] [place] [address] Robin Pastor, ANEESH [address] [place] [address] Social History Tobacco Use Types Packs/Day Years [...]
--- OUTSIDE RECORDS SUMMARY | 2025-02-01 16:34 | XMS_ITS | Patient Health Record ---
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
--- OUTSIDE RECORDS SUMMARY | 2025-02-01 16:34 | XMS_ITS | Encounter Summary ---
Author Organization [facility] Address [address] [place] [address] Care Team Providers Care Mixing Picker Tender Name Role Phone Pcp, No Primary Care Provider Unavailabl e Encounter Details Date Type Department Care Team (Latest Contact Info) Description 09/21/2024 Hospital Encounter Social History Tobacco Use Types Packs/Day Years Used Date Smoking Tobacco: Never Smokeless Tobacco: Never Alcohol Use Standard Drinks/Week Comments Not Currently 0 (1 standard drink = 0.6 oz pur e alcohol) [facility] Utilities Answer Date Recorded In the past 12 months has e [email or web address], gas, oil, or water [employer] threatened to shut off services in your [...] any time in the past 12 m [facility], were you homeless or living in a alf (including now)? Patient unable to answer 09/22/2024 [...] drink containing alcohol? Never 09/22/2024 5:00 AM MELINDAT Sherin Claudio RN Q2: How many drinks containing alcohol do you have on a typical day when you are drinking? Patient does not drink 09/22/2024 5:00 AM MELINDAT Sherin Claudio RN Q3: How often do you have six or more drinks on one occasion? Never 09/22/2024 5:00 AM Sherin Fischer RN documented as of this encounter Plan of Treatment Not on file documented as of this encounter Visit Diagnoses Not on filedocumented in this encounter Care Teams Mixing Picker Tender Relationship Specialty Start Date End Date Pcp, Lesley PCP - General General Medicine 11/01/24 documented as of this encounter
--- OUTSIDE RECORDS SUMMARY | 2025-02-01 16:34 | XMS_ITS ---
Author Name [facility] Organization Unknown Results Test Name/Text Value Interpretation Date Range Source Sodium SerPl-sCnc 144.0 mmol/L Normal 09/24/2024 136 - 14 5 HHCCT CO2 SerPl-sCnc 24.0 mmol/L Normal 09/24/2024 20 - 31 HH CCT BUN/Creat SerPl 11.0 Ratio Normal 09/24/2024 10 - 25 HH CCT Chloride SerPl-sCnc 111.0 mmol/L Above high normal 98 - 107 H[facility]CT Glucose SerPl-mCnc 86.0 mg/dL Normal 09/24/2024 74 - 106 HHCCT Creat SerPl-mCnc 1.8 mg/dL Above high normal 09/24/2024 0.7 - 1.3 HHCCT BUN SerPl-mCnc 20.0 mg/dL Normal 09/24/2024 9 - [address] Calcium SerPl-mCnc 8.8 mg/dL Normal 09/24/2024 8.7 - 10.5 HHCCT Potassium SerPl-sCnc 4.4 mmol/L Normal 09/24/2024 3.4 - 4 .5 HHCCT Anion Gap Bld-sCnc 8.0 Normal 09/24/2024 5 - 15 HHCCT GFR/BSA.pred SerPlBld [id number]-[id number] 38.0 Below low normal 09/24/2024 59 - HHCCT Magnesium SerPl-mCnc 2.0 mg/dL Normal 09/24/2024 1.6 - 2. 6 HHCCT Folate SerPl-mCnc 12.9 ng/mL Normal 09/23/2024 7.2 - HHCCT Calcium SerPl-mCnc 8.7 mg/dL Normal 09/23/2024 8.7 - 10.5 HHCCT Sodium SerPl-sCnc 145.0 mmol/L Normal 09/23/2024 136 - 14 5 HHCCT Globulin Ser Calc-mCnc 2.1 g/dL Normal 09/23/2024 1.5 - 3.9 HHCCT CO2 SerPl-sCnc 24.0 mmol/L Normal 09/23/2024 20 - 31 HH CCT GFR/BSA.pred SerPlBld [id number]-[id number] 40.0 Below low normal 09/23/2024 59 - HHCCT Anion Gap Bld-sCnc 8.0 Normal 09/23/2024 5 - 15 HHCCT BUN SerPl-mCnc 20.0 mg/dL Normal 09/23/2024 9 - [address] Albumin SerPl-mCnc 4.0 g/dL Normal 09/23/2024 3.4 - 4.8 HHCCT Potassium SerPl-sCnc 4.1 mmol/L Normal 09/23/2024 3.4 - 4 .5 HHCCT Bilirub SerPl-mCnc 0.5 mg/dL Normal 09/23/2024 0.3 - 1.2 HHCCT Prot SerPl-mCnc 6.1 g/dL Normal 09/23/2024 5.7 - 8.[address] Albumin/Glob SerPl 1.9 Ratio Normal 09/23/2024 1.5 - 2.5 HHCCT BUN/Creat SerPl 12.0 Ratio Normal 09/23/2024 10 - 25 HH CCT AST SerPl-cCnc 18.0 U/L Normal 09/23/2024 - 34 HHCC T ALP SerPl-cCnc 85.0 U/L Normal 09/23/2024 45 - 128 HHCC T Chloride SerPl-sCnc 113.0 mmol/L Above high normal 98 - 107 HHCCT Glucose SerPl-mCnc 87.0 mg/dL Normal 09/23/2024 74 - 106 HHCCT ALT SerPl-cCnc 10.0 U/L Normal 09/23/2024 10 - 49 HHCC T Creat SerPl-mCnc 1.7 mg/dL Above high normal 09/23/2024 0.7 - 1.3 HHCCT Magnesium SerPl-mCnc 2.1 mg/dL Normal 09/23/2024 1.6 - 2. 6 HHCCT Platelet num Bld Auto 169.0 Thou/uL Normal 09/23/2024 150 - 450 HHCCT Imm Granulocytes/leuk NFr Bld Auto 0.4 % Normal 09/23/2024 HHCCT Lymphocytes/leuk NFr Bld Auto 29.3 % Normal 09/23/2024 HHCCT MCH RBC Qn Auto 26.0 pg Below low normal 09/23/2024 27 - 3 1 HHCCT Neutrophils/leuk NFr Bld Auto 55.5 % Normal 09/23/2024 HHCCT MCHC RBC Auto-mCnc 31.8 g/dL Normal 09/23/2024 30 - 36 HHCCT RBC num Bld Auto 3.5 Mil/uL Below low normal 09/23/2024 4.5 - 6.2 HHCCT Basophils num Bld Auto 0.03 Thou/uL Normal 09/23/2024 0 - 0.2 HHCCT Hct VFr Bld Auto 28.6 % Below low normal 09/23/2024 39 - 54 HHCCT Eosinophil/leuk NFr Bld Auto 2.6 % Normal 09/23/2024 HHCCT Basophils/leuk NFr Bld Auto 0.6 % Normal 09/23/2024 HHCCT PMV Bld Auto 10.3 fL Normal 09/23/2024 7.5 - 12.5 HHCCT WBC num Bld Auto 5.1 Thou/uL Normal 09/23/2024 4 - 11 HHCCT Imm Granulocytes num Bld Auto 0.02 Thou/uL Normal 09/23/2024 0 - 0.1 HHCCT Lymphocytes num Bld Auto 1.49 Thou/uL Below low normal 09/23/2024 1.5 - 4.5 HHCCT Monocytes num Bld Auto 0.59 Thou/uL Normal 09/23/2024 0.2 - 1.5 HHCCT Neutrophils num Bld Auto 2.83 Thou/uL Normal 09/23/2024 2 - 7.5 HHCCT Eosinophil num Bld Auto 0.13 Thou/uL Normal 09/23/2024 0 - 0.7 HHCCT Monocytes/leuk NFr Bld Auto 11.6 % Normal 09/23/2024 HHCCT RDW RBC Auto-Rto 14.5 % Normal 09/23/2024 11.5 - 14.5 HHCCT MCV RBC Auto 82.0 fL Normal 09/23/2024 80 - 100 HHCCT Hgb Bld-mCnc 9.1 g/dL Below low normal 09/23/2024 13 - 17.7 HHCCT UIBC SerPl-mCnc 320.0 ug/dL Normal 09/22/2024 H HCCT Iron SerPl-mCnc 26.0 ug/dL Below low normal 09/22/2024 65 - 175 HHCCT Iron Satn MFr SerPl 8.0 % Below low normal 09/22/2024 20 - 50 HHCCT TIBC SerPl-mCnc 346.0 ug/dL Normal 09/22/2024 250 - 425 H HCCT Neutrophils/leuk NFr Bld Auto 63.9 % Normal 09/22/2024 HHCCT Basophils/leuk NFr Bld Auto 0.6 % Normal 09/22/2024 HHCCT MCV RBC Auto 82.0 fL Normal 09/22/2024 80 - 100 HHCCT Basophils num Bld Auto 0.03 Thou/uL Normal 09/22/2024 0 - 0.2 HHCCT Hct VFr Bld Auto 29.9 % Below low normal 09/22/2024 39 - 54 HHCCT Neutrophils num Bld Auto 3.01 Thou/uL Normal 09/22/2024 2 - 7.5 HHCCT Monocytes num Bld Auto 0.44 Thou/uL Normal 09/22/2024 0.2 - 1.5 HHCCT RBC num Bld Auto 3.64 Mil/uL Below low normal 09/22/2024 4.5 - 6.2 HHCCT Eosinophil/leuk NFr Bld Auto 2.1 % Normal 09/22/2024 HHCCT Imm Granulocytes num Bld Auto 0.01 Thou/uL Normal 09/22/2024 0 - 0.1 HHCCT RDW RBC Auto-Rto 14.4 % Normal 09/22/2024 11.5 - 14.5 HHCCT Eosinophil num Bld Auto 0.1 Thou/uL Normal 09/22/2024 0 - 0.7 HHCCT Hgb Bld-mCnc 9.3 g/dL Below low normal 09/22/2024 13 - 17.7 HHCCT Lymphocytes num Bld Auto 1.13 Thou/uL Below low normal 09/22/2024 1.5 - 4.5 HHCCT MCH RBC Qn Auto 25.5 pg Below low normal 09/22/2024 27 - 3 1 HHCCT Imm Granulocytes/leuk NFr Bld Auto 0.2 % Normal 09/22/2024 HHCCT PMV Bld Auto 10.3 fL Normal 09/22/2024 7.5 - 12.5 HHCCT MCHC RBC Auto-mCnc 31.1 g/dL Normal 09/22/2024 30 - 36 HHCCT Monocytes/leuk NFr Bld Auto 9.3 % Normal 09/22/2024 H[facility]CT Platelet num Bld Auto 182.0 Thou/uL Normal 09/22/2024 150 - 450 HHCCT WBC num Bld Auto 4.7 Thou/uL Normal 09/22/2024 4 - 11 HHCCT Lymphocytes/leuk NFr Bld Auto 23.9 % Normal 09/22/2024 HHCCT Ferritin SerPl-mCnc 11.0 ug/L Normal 09/22/2024 11 - 307 HHCCT Vit B12 SerPl-mCnc 604.0 pg/mL Normal 09/22/2024 211 - 91 1 HHCCT Retics/100 RBC NFr Auto 1.4 % Normal 09/22/2024 0.7 - 2 HHCCT Immature Reticulocyte Fraction 16.0 % Above high normal 09/22/2024 2.3 - 15.9 HHCCT Retics num Auto 47.6 Thou/uL Normal 09/22/2024 30 - 100 HHCCT Hgb Retic Qn Auto 22.6 pg Below low normal 09/22/2024 28 - 35 HHCCT Reticulocyte production index 0.8 % Below low normal 09/22/2024 1 - 2 HHCCT Magnesium SerPl-mCnc 2.1 mg/dL Normal 09/22/2024 1.6 - 2. 6 HHCCT Phosphate SerPl-mCnc 2.7 mg/dL Normal 09/22/2024 2.4 - 5. 1 HHCCT TSH SerPl DL<=0.005 mIU/L-aCnc 1.72 mIU/L Normal 09/22/2024 0.48 - 4.17 HHCCT Anion Gap Bld-sCnc 10.0 Normal 09/22/2024 5 - 15 HHCCT Chloride SerPl-sCnc 113.0 mmol/L Above high normal 5 98 - 107 HHCCT Sodium SerPl-sCnc 145.0 mmol/L Normal 09/22/2024 136 - 14 5 HHCCT Potassium SerPl-sCnc 4.1 mmol/L Normal 09/22/2024 3.4 - 4 .5 HHCCT GFR/BSA.pred SerPlBld CBW-PBM-MbBZpy 43.0 Below low normal 09/22/2024 59 - HHCCT CO2 SerPl-sCnc 22.0 mmol/L Normal 09/22/2024 20 - 31 HH CCT Creat SerPl-mCnc 1.6 mg/dL Above high normal 09/22/2024 0.7 - 1.3 HHCCT Glucose SerPl-mCnc 93.0 mg/dL Normal 09/22/2024 74 - 106 HHCCT BUN/Creat SerPl 12.0 Ratio Normal 09/22/2024 10 - 25 HH CCT Calcium SerPl-mCnc 8.7 mg/dL Normal 09/22/2024 8.7 - 10.5 HHCCT BUN SerPl-mCnc 19.0 mg/dL Normal 09/22/2024 9 - [address] MCV RBC Auto 82.0 fL Normal 09/22/2024 80 - 100 HHCCT MCHC RBC Auto-mCnc 30.6 g/dL Normal 09/22/2024 30 - 36 HHCCT WBC num Bld Auto 5.1 Thou/uL Normal 09/22/2024 4 - 11 HHCCT RBC num Bld Auto 3.42 Mil/uL Below low normal 09/22/2024 4.5 - 6.2 HHCCT PMV Bld Auto 9.8 fL Normal 09/22/2024 7.5 - 12.5 HHCCT Platelet num Bld Auto 158.0 Thou/uL Normal 09/22/2024 150 - 450 HHCCT Hct VFr Bld Auto 28.1 % Below low normal 09/22/2024 39 - 54 HHCCT MCH RBC Qn Auto 25.1 pg Below low normal 09/22/2024 27 - 3 1 HHCCT RDW RBC Auto-Rto 14.4 % Normal 09/22/2024 11.5 - 14.5 HHCCT Hgb Bld-mCnc 8.6 g/dL Below low normal 09/22/2024 13 - 17.7 HHCCT History of Medication Use Medication Directions [...] 0 mg total) by mouth daily. active Allergies Allergen Reaction Severity Comment Documented Date Source Statu s CEPHALEXIN RASH/DERMATITIS 09/28/2024 CCT ac tive SHELLFISH-DERIVED PRODUCTS UNKNOWN/PATIENT AND FAMILY UNABLE TO DEFINE 10/03/2022 H[facility] active LISINOPRIL UNKNOWN/PATIENT AND FAMILY UNABLE TO DEFINE 10/26/2020 H[facility] active BACLOFEN UNKNOWN/PATIENT AND FAMILY UNABLE TO DEFINE H[facility] Problems Problem Status Onset Date Problem Type Date of Resoluti on Source Bradycardia active 2024-09-22 ProblemAct [facility] AV block active 2024-09-22 ProblemAct CCT Encounters Encounter Type Encounter Reason Primary Diagnosis Location Date Ambulatory Unspecified atrioventricular block Unspecified atrioventricular block [facility] In[facility] Atrioventricular block, complete Atrioventricular block, complete [facility] Care Team Organization Name Specialty Phone Email Start Date End Da te [facility] NO PCP Primary Care 11/03/2024 [facility] 09/22/2024 11/25/2024 [facility] 09/21/2024
--- OUTSIDE RECORDS SUMMARY | 2025-02-01 16:34 | XMS_ITS | Encounter Summary ---
Author Organization [employer] Address [address] [facility] [address] [place] [address] Care Team Providers Care Train Operator Name Role Phone Unavailable Primary Care Provider Unavailabl e Encounter Details Date Type Department Care Team (Late st Contact Info) Description 06/20/2023 Abstract [facility] [address] [place] [address] Robin Pastor, ANEESH [address] [place] [address] Social History Tobacco Use Types Packs/Day Years [...]
--- OUTSIDE RECORDS SUMMARY | 2025-02-01 16:34 | XMS_ITS | Clinical Summary ---
Author Organization [employer] Address [address] [facility] [address] [place] [address] Care Team Providers Care Food And Beverage Director Name Role Phone Unavailable Primary Care [...] Zoster Vaccines (2 of 3) 01/18/2016 11/23/2015 Dental Oral Exam 04/06/2023 10/03/2022 Dental Prophylaxis 06/22/2023 12/19/2022, 0 09/19/2022, 05/31/2022, Additional history exists Dental X-Ray: Bitewings 12/21/2023 12/19/2022 DTaP/Tdap/Td Vaccines (2 - Tdap) 05/27/2024 05/27/2014 COVID-19 Vaccine ( season) 2025 03/14/2023, 11/16/2022, 02/12/2022, Additional history exists Influenza Vaccine (#1) 2025 , 02/28/2022, 02/26/2022, Additional history exists Tobacco Screening 04/01/2025 04/01/2024 Hepatitis A Vaccines Completed 06/07/2016, 12/28/2015, 11/23/2015 Hepatitis B Vaccines Completed 06/07/2016, 12/28/2015, 11/23/2015 Pneumococcal Vaccine: 50+ Years Completed 06/07/2016, 11/23/2015 RSV Patients and Patients Aged 60 years or older Completed 04/11/2023 HIB Vaccines Aged Out No longer eligi ble based on patient's age to complete this topic HPV Vaccines Aged Out No longer eligi ble based on patient's age to complete this topic IPV Vaccines Aged Out No longer eligi ble based on patient's age to complete this topic Meningococcal B Vaccine Aged Out No l onger eligible based on patient's age to complete [...]
--- OUTSIDE RECORDS SUMMARY | 2025-02-01 16:35 | XMS_ITS | Encounter Summary ---
Author Organization [employer] Address [address] [facility] [address] [place] [address] Care Team Providers Care Pizzamaker Name Role Phone Unavailable Primary Care Provider [...]
--- NOTE | 2025-02-02 10:08 | MHC.SL.IMP ---
Date of Plan of Treatment: 02/01/25 Onset of Symptoms/Illness: 12/14/24 Date Treatment Started: 02/01/25 Admitting Diagnosis: CVA, dementia Primary Speech & Language Diagnosis: R13.12 Oropharyngeal Phase Dysphagia Reason for Today's Visit: 71983 Modified Barium Swallow Study Pre-evaluation Dietary Consistencies: Regular Pre-evaluation Liquid Consistency: [place] Thick Pre-evaluation Medication Administration: UNK Medical History: Modified Barium Swallow Study Fluoroscopic Evaluation of Swallowing Function CPT Code 64843 Evaluation Year: 2024 Reason for Study: Dysphagia/ cough/ recently treated for aspiration PNA Referring Physician: Althea Woody CNP Evaluating Clinician: Aida Walker MA, CCC-YOUTH WORKER Patient ID: [id number] Study Number: 1 Patient Name: Clifford Ashby Status: Outpatient, Wheelchair Age: 79 Sex: Male Medical History Medical History CKD (chronic kidney disease) New onset of congestive heart failure Diverticulitis Dementia Hoffman esophagus Malignant neoplasm of prostate Cirrhosis of liver Surgical History H/O radical prostatectomy Current (pre-evaluation) Intake/Diet: Route: PO Diet Grade: Regular Liquid Consistencies: [place] Pre-Study Functional Oral Intake Scale (FOIS): 5- Total oral intake of multiple consistencies requiring special preparation Pain: None reported at time of study SUBJECTIVE: Patient is an 79 year old male sent from the [facility] for a modified barium swallow study. Patient [place] [facility] for sepsis and acute hypoxic respiratory failure due to pneumonia. Patient's chest x-ray 12/14 showed right-sided PNA, concern for suspected aspiration. Patient was seen by YOUTH WORKER team during this admission and was recommended to continue on regular texture solids, but downgrade from his baseline of thin liquids to nectar thick liquids after he evidenced overt s/s of aspiration, coughing after drinking water. Patient returns for an instrumental assessment of his swallow to evaluate the extent of his pharyngeal dysphagia and for potential diet advancement. Pertinent medical history includes hypertension, hyperlipidemia, CVA, diverticulitis, CKD III, prostate CA, mood d/o, Hoffman's esophagus, and dementia. Oral Motor Exam Facial Symmetry: Symmetrical Mouth Occlusion: Normal Oral-Facial Teeth Characteristics: Partially Missing Oral-Facial Smile (Lips) Description: Normal Oral-Facial Puff Cheeks Description: Normal Tongue Size: Normal Tongue Excursion Description: Normal Tongue Range of Movement Description: Normal Tongue Speed of Movement Description: Normal Tongue Strength of Movement (against opposing pressure): Normal Tongue Movement Characteristics: Normal/Absent Food and Liquid Trials: Oral Impairment: Lip Closure: Did not test Oral Impairment: Tongue Control During Bolus Hold: 1=Escape to lateral buccal cavity/floor of mouth (FOM) Oral Impairment: Bolus Preparation/Mastication: 1=Slow prolonged chewing/mashing with complete re-collection Oral Impairment: Bolus Transport/Lingual Motion: 3=Repetitive/disorganized tongue motion Oral Impairment: Oral Residue: 2=Residue collection on oral structures Oral Impairment:Initiation of Pharyngeal Swallow: 0=Bolus head at posterior angle of ramus (first hyoid excursion) Pharyngeal Impairment: Soft Palate Elevation: 0=No bolus between soft palate (SP)/pharyngeal wall (PW) Pharyngeal Impairment: Laryngeal Elevation: 0=Complete superior movement of thyroid cartilage (see description) Pharyngeal Impairment: Anterior Hyoid Excursion: 0=Complete anterior movement Pharyngeal Impairment: Epiglottic Movement: 0=Complete inversion Pharyngeal Impairment: Laryngeal Vestibular Closure:: 1=Incomplete: narrow column air/contrast in laryngeal vestibule Pharyngeal Impairment: Pharyngeal Stripping Wave: 0=Present: complete Pharyngeal Impairment: Pharyngeal Contraction: Did not test Pharyngeal Impairment: Pharyngoesophageal Segment Openin=Complete distension and complete duration: no obstruction of flow Pharyngeal Impairment: Tongue Base (TB) Retraction: 2=Narrow column of contrast/air between TB and posterior PW Pharyngeal Impairment: Pharyngeal Residue: 2=Collection of residue within or on pharyngeal structures Pharyngeal Impairment: Esophageal Clearance Upright Position: Did not test Impressions and Recommendations OBJECTIVE: Time-out: performed at 14:45 Evaluation Start: 14:30; Stop: 14:35 Patient Positioning: Seated 70-90 degrees Viewing Planes: LATERAL ONLY Contrast: MBSImP? Standardized Protocol using commercially prepared, standardized Barium viscosities, including: Varibar? THIN LIQUID (40% w/v, <15 cps) , Varibar? PUDDING (40% w/v, <3791-8340 cps) , 1/2 Shortbread Cookie (1 x1 x.25 ) MBSImP ID: [id number] MBSImP Results: Lip closure for intraoral bolus containment could not be assessed due to logistical reasons not related to physiologic impairment. Tongue control during bolus hold allowed bolus escape to the lateral buccal cavity/floor of mouth. Bolus preparation and mastication resulted in slow, prolonged chewing/mashing but with complete re-collection. Bolus transport/lingual motion was with repetitive/disorganized motion of the tongue. Oral residue was a collection on oral structures. Initiation of the pharyngeal swallow occurred as the bolus head reached the posterior angle of the mandibular ramus. Soft palate elevation resulted in no bolus between the soft palate and the pharyngeal wall. Laryngeal elevation demonstrated complete superior movement of the thyroid cartilage with complete approximation of the arytenoids to the epiglottic petiole. Anterior hyoid excursion demonstrated complete anterior movement. Epiglottic movement resulted in complete inversion. Laryngeal vestibular closure was incomplete, with a narrow column of air/contrast noted within the laryngeal vestibule at the height of the swallow. Pharyngeal stripping wave was present and complete. Pharyngeal contraction could not be determined due to logistical reasons not related to physiologic impairment. Pharyngoesophageal segment opening was completely distended for complete duration with no obstruction of bolus flow. Tongue base retraction allowed a narrow column of contrast or air between the retracted tongue base and the posterior pharyngeal wall. Pharyngeal residue was a collection of residue within or on pharyngeal structures. Esophageal clearance in the upright position could not be assessed due to logistical reasons not related to physiologic impairment. Oral Impairment Score: 7 (absence of score, component 1) Pharyngeal Impairment Score: 5 (absence of score, component 13) Esophageal Impairment Score: --- (absence of score, component 17) Laryngeal Penetration and Aspiration: Neither penetration nor aspiration was observed in today's study with Cookie, Pudding-thick. Penetration was observed in today's study. Thin Contrast entered the airway, remained above the vocal folds, and was ejected from the airway. ASSESSMENT: This exam was performed by the radiologist and the speech pathologist. Patient was seated upright in a wheelchair for lateral view. He fed himself independently and trialed the following consistencies: -Thin liquid (via individual cup sips) -Puree (mixture applesauce w/ barium pudding) -Regular (shortbread cookie coated w/ barium pudding) Good oral containment with no anterior loss of bolus. There was liquid pooling to the floor of mouth, but no posterior escape from the oral cavity. Mastication was mildly slowed, characterized by piece meal clearing. Patient demonstrated repetitive tongue rocking movements, though brief, followed by timely pharyngeal swallow trigger. Post-swallow, there was minimal residue coating the tongue, which cleared on subsequent swallows. No evidence of nasopharyngeal reflux. Complete laryngeal elevation with complete anterior hyoid excursion and complete epiglottic inversion. Incomplete laryngeal vestibular closure, resulting in flash penetration on trials of thin liquid. A trace amount of liquid entered the airway intermittently above the vocal folds and spontaneously cleared. No evidence of aspiration during this exam. There was minimal collection of residue on the tongue base and in the valleculae, which cleared on self-initiated secondary swallow. Liquid Intake Recommendation: Thin Liquid Intake Strategies: Small Sips, No Straws Dietary Recommendations: Regular Medication Administration: Whole with Puree Please contact the pharmacy regarding appropriate crushable or liquid drug formulations that are available whenever modified delivery is recommended. Compensatory Strategies Recommended: Sitting Upright (90 deg), No Straw, Small Bites and Sips, Alternate Liquids/Solids, Rate of Ingestion Change Recommended Treatments: Compens. Strategy Educat. Recommendation for Speech Therapy: Speech Therapy through Rehab Facility Text Comment: Intake Recommendations: Route: PO Diet Grade: Regular Liquid Consistencies: Thin Post-Study Functional Oral Intake Scale (FOIS): 7- Total oral intake with no restrictions Flash penetration intermittently on trials of thin liquid, with no subsequent aspiration. Minimal oral and pharyngeal residue, cleared on self-initiated dry swallows. Therapy Recommendations: Recommend continue on REGULAR texture solids and UPGRADE to THIN liquids, pills WHOLE in PUREE or with LIQUID, as tolerated by patient. Patient is able to feed himself, but may need some level of supervision due to underlying dementia. Recommend precautions on liquid intake: take small sips, avoid sequential sipping, avoid the use of straws. Recommend 1-2 follow-up visits with the speech pathologist at the LT facility to reinforce strategies. Short Term Goals: ? Diet - The patient will tolerate a regular diet with thin liquids without signs or symptoms of penetration/aspiration 100% of the time. ? Guidelines - The patient will comply with/recall the following guidelines/strategies 90% of the time with minimal cuing: Bolus Volume Change, Rate of Ingestion Change, Additional Swallow(s) per Bolus, No Straws. ? Education - The patient, family, caregiver will verbalize/demonstrate understanding of the results of this evaluation, the above recommendations, and the swallowing guidelines. Frequency/Duration: 1-2 f/u Date Range for Service Requested: Timeline to reassess: PRN Clinician - Supplemental, Miscellaneous Communication: It is important to note MBSS objective studies are snapshots in time and Patient function might vary with factors such as time of day or concomitant medical conditions. For this reason, the final treatment plan for this patient should rest with their medical care team. Additional recommendations should be considered with the totality of the Patient in mind. Thank for the opportunity to participate in the care of this patient. If you have any questions about the content of this report, please contact the [facility] at [facility]. Education: Education regarding findings from today's study and plans for therapy were provided to Patient only through Verbal Instruction. Understanding was expressed by the Patient only. Upholstery Department Supervisor Clinician/Clinical Fellow: No Supervisory Statement: N/A Speech Language Pathologist: Aida Walker M.A., CCC-YOUTH WORKER
== END 2025-02-01 14:14 | disposition home or self-care (01) ==
LOC: HO.XRAY 14:13
PROVIDERS: PCP Nurse Practitioner Acute Care; Visit Provider Nurse Practitioner Acute Care
DX: R13.10 Dysphagia, unspecified (principal)
CPT/HCPCS: 74230; 92611

== ENCOUNTER → 2025-02-01 14:20 | Outpatient (BNV) | payer MEDICARE, SELFPAY | PROVIDERS: PCP Nurse Practitioner Acute Care; Visit Provider Radiology Diagnostic Radiology | DX: R13.10 Dysphagia, unspecified (principal) | CPT/HCPCS: 74230 ==

== ENCOUNTER 2025-02-22 07:06 | Outpatient (REF) | payer MEDICARE, SELFPAY ==
--- OUTSIDE RECORDS SUMMARY | 2023-10-30 11:00 | XMS_ITS ---
Author Organization [facility] Address [address] [place] [phone] Care Team Providers Care Military Aircraft Designer Name Role Phone Tatum MURRELL, Jamison Primary Care Provider Unavailab Lc William [phone] REASON FOR VISIT barretts esophagus Encounters Encounter Location Date Provider Diagnosis [facility] [address] [place] [phone] 10/30/2023 Lc Avalos Plan Of Treatment No Information Progress Notes * MARIANNE DAVILADOB: 4 (79 yo M)Acc No.[id number]:10/30/2023 Progress Notes Patient: MARIANNE DELGADO Provider: Lissette Avalos MD :1945 A ge:78 Y S ex:Male Date:10/30/2023 Address:[place], [address] [facility] Pcp:Jamison Winn MD Subjective: * Chief Complaints: [...] MD Date: 0 10/30/2023 Generated for Amori delphine/Famartig/eTransmitting on: 0 02/22/2025 07:10 AM EDT
--- OUTSIDE RECORDS SUMMARY | 2025-02-16 05:30 | XMS_ITS ---
Author Organization [facility] Address [address] [place] [address] Care Team Providers Care Supervisor Underwriting Clerks Name Role Phone Tatum MURRELL, Jamison Primary Care Provider UnavailLc Gayle Unavailable [phone] Allergies Allergen (clinical drug ingredient) Drug/Non Drug [...] Status W/U Status Risk Notes Problem Gallstones (666083827) Gallstones (K80.20) Active confirmed Vital Signs Temperature 97.5 degrees Fahrenheit 02/17/20 25 Blood pressure systolic 001 mm Hg 02/17/20 25 Blood pressure diastolic 01 mm Hg 025 Height 5Ft 9 In in 02/16/2025 Weight 168.0 lbs 02/16/2025 BMI 24.81 kg/m2 02/16/2025 Encounters Encounter Location Date Provider Diagnosis [facility] [address] [place] [address] 02/16/2025 Lc Avalos Chronic GERD K21.9 ; [...] my part. He does have the reported Hfofman's esophagus but given his age and no [...] for allowing me to have participated in [facility]. Please do not hesitate to contact me if I can be of any further assistance in the future. 02/16/2025 Gallstones (ICD-10 - K80.20) You should be referred back to the surgeon at [facility] if you develop any right upper abdominal [...] referr ed back to the surgeon at [facility] if you develop any right upper abdominal pain and/or jaundice from the gallstones Progress Notes * MARIANNE DAVILADOB: [birth year] (79 yo M)Acc No.[id number]:02/16/2025 Progress Notes Patient: MARIANNE DELGADO Provider: Lissette Avalos MD :1945 A ge:79 Y S ex:Male Date:02/16/2025 Address:[place] [address] Pcp:Jamison Winn MD Subjective: * Chief Complaints: * 1 . 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 He was accompanied by Carlita from the [facility]. I last saw Marianne in [...] History: C oronary artery disease with previous MD, GERD was reported Hoffman's esophagus, although I [...] issues. * Surgical History: P rostatectomy at [facility] . 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 He was accompanied by Carlita from the [facility]. I last saw Marianne in [...]
--- OUTSIDE RECORDS SUMMARY | 2025-02-22 07:10 | XMS_ITS | Encounter Summary ---
Author Organization [employer] Address [address] [facility] 7t [place] [address] Care Team Providers Care Iv Technician Name Role Phone Unavailable Primary Care Provider Unavailabl e Encounter Details Date Type Department Care Team (Late st Contact Info) Description 05/03/2023 Abstract [facility] [address] [place] [address] Robin Pastor, ANEESH [address] [place] [address] Social History Tobacco Use Types Packs/Day Years [...]
--- OUTSIDE RECORDS SUMMARY | 2025-02-22 07:10 | XMS_ITS | Encounter Summary ---
Author Organization [employer] Address [address] [facility] 7t [place] [address] Care Team Providers Care Senior It Assistant Name Role Phone Unavailable Primary Care Provider Unavailabl e Encounter Details Date Type Department Care Team (Late st Contact Info) Description 06/20/2023 Abstract [facility] D[facility] [address] [place] [address] Robin Pastor, ANEESH [address] [place] [address] Social History Tobacco Use Types Packs/Day Years [...]
--- OUTSIDE RECORDS SUMMARY | 2025-02-22 07:10 | XMS_ITS | Patient Health Record ---
Author Organization [facility] Address [address] [place] [address] Care Team Providers Care Medical Reception Specialist Name Role Phone Jamison Winn MD Primary Care Provider UnavailLc Gayle [phone] Allergies Allergen (clinical drug ingredient) Drug/Non Drug [...] Once a day for 30 day(s) Active Immunizations Vaccine Route Administration Date Status Comme nts Influenza Unknown 02/12/2023 Administered Influenza Unknown 02/17/2024 Administered Social History Tobacco Use: Social History Observation Description Date Details (start date - stop date) Never Smoker NA - NA Tobacco Use/Smoking Question Answer Notes Patient is a nonsmoker AUDIT-C (Standard) Question Answer Notes Did you have a drink containing alcohol in the p ast year? No Points 0 Interpretation Negative Section Notes: Nonsmoker; recovering alcoho lic x 3-4 years Nonsmoker; recovering alcoho lic x 3-4 years Problems Problem Type SNOMED Code ICD Code Onset Dates Problem Status W/U Status Risk Notes Problem Gallstones (411286207) Gallstones (K80.20) Active confirmed Problem Cirrhotic (552603427) Cirrhosis (K74.60) Active confirmed Problem Alcoholic cirrhosis of liver (548490769) Alcoholic cirrhosis of liver (K70.30) Active confirmed Problem Hoffman esophagus (277770653) 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 Problem Gastroesophageal reflux disease (550298810) Chronic GERD (K21.9) Active confirmed Vital Signs Temperature 97.5 degrees Fahrenheit 02/16/2025 Blood pressure diastolic 01 mm Hg 02/16/2025 Height 5Ft 9 In in 02/16/2025 Blood pressure systolic 001 mm Hg 02/16/2025 Weight 168.0 lbs 02/16/2025 BMI 24.81 kg/m2 02/16/2025 Encounters Encounter Location Date Provider Diagnosis [facility] [address] [place] [phone] 02/16/2025 Lc Avalos Chronic GERD K21.9 ; Hoffman esophagus K22.70 and Gallstones K80.20 [facility] [address] [place] [phone] 02/10/2025 Lc Avalos Assessments Encounter Date Diagnosis (ICD Code) Assessment Notes Treatment Notes Treatment Clinical Notes Section Notes 02/16/2025 Hoffman esophagus (ICD-10 - K22.70) No [...] for allowing me to have participated in [facility] [place] [facility]. Please do not hesitate to contact me if I can be of any further assistance in the future. 02/16/2025 Chronic GERD (ICD-10 - K21.9) Continue [...] my part. He does have the reported Hofmfan's esophagus but given his age and no [...] for allowing me to have participated in [facility] [place] [facility]. Please do not hesitate to contact me if I can be of any further assistance in the future. 02/16/2025 Gallstones (ICD-10 - K80.20) You should be referred back to the surgeon at [facility] if you develop any right upper abdominal [...] assistance in the future. Plan Of Treatment No Information Insurance Providers Payer Name Payer Address Payer Phone Subscriber Number Group Number Insured Name Patient Relationship to Insured Coverage Start Date Coverage End Date MEDICARE OF [place] [address] [place] [address] [id number] MARIANNE DAVILA Self - patient is the [...] issues Surgical History Surgery Date(Month/Year) Prostatectomy at [facility]
--- OUTSIDE RECORDS SUMMARY | 2025-02-22 07:10 | XMS_ITS | Clinical Summary ---
Author Organization [facility] Address [address] [place] [address] Care Team Providers Care Business Planning Director Name Role Phone Pcp, No Primary Care [...] Diagnosed Date Bradycardia 09/22/2024 AV block 09/22/2024 Social History Tobacco Use Types Packs/Day Years Used Date Smoking Tobacco: Never Smokeless Tobacco: Never Tobacco Cessation:Counseling Given: Not Answered Alcohol Use Standard Drinks/Week Comments Not Currently 0 (1 standard drink = 0.6 oz pur e alcohol) [facility] Utilities Answer Date Recorded In the [...] any time in the past 12 m [facility], were you homeless or living [...] 09/28/2018 Influenza Vaccine 12/25/2024 02/12/2023 COVID-19 Vaccine (1 - 2023-2 5 season) 2025 Advance Care Planning Completed 2024 Hepatitis B Vaccines Aged Out No long er eligible based on patient's age to complete this topic Medical Devices Implanted Type Area Professor Of Graphic Design Device Identifier Shelf Expiration Date Model / Serial / Lot 2088tc/58 Lead Pacing 58cm 6fr Hlx Ecrdm Bipolar Actfx Xtd Is 1 Tndrl - [id number] Implanted:Qty : 1 on 09/24/2024 by Lonnie Mehta MD at [facility] Lead N/A: Heart [employer] [id number] 06/26/20272087TC/58 / [id number] / Lead Pacing 52cm 6fr Hlx Ecrdm Bipolar Actfx Is-1 Conn Xtd - [id number] Implanted:Qty : 1 on 09/24/2024 by Lonnie Mehta MD at [facility] Lead N/A: Heart [employer] [id number] 06/26/2027 / [id number] / [id number] Pacemaker Cardiac Thk6mm Assurity Mri 2 Chamber Pls Gntr - [id number] Implanted:Qty : 1 on 09/24/2024 by Lonnie Mehta MD at [facility] Pacemaker Left: Chest Wall [employer] [id number] 01/24/2026 [id number] / [id number] / [place] [id number] Advance Directives Documents on File Type Date Recorded Patient Shop Repairer Expl anation Advance Directive-Scan 2024 1:55 PM [...] Decision Thoroughly Discussed with: Legally Auth orized Shop Repairer Name of Legally Authorized Shop Repairer: Yoon soriano * DNR Date Activated Date Inactivated Comments 09/22/2024 3:16 AM 09/24/2024 11:27 AM Question Answer Comments Decision thoroughly discussed with: Sherly ent arrived with [place] DNR Transfer form Care Teams Business Planning Director Relationship Specialty Start Date End Date Pcp, No PCP - General General Medicine 11/01/24
--- OUTSIDE RECORDS SUMMARY | 2025-02-22 07:10 | XMS_ITS | Encounter Summary ---
Author Organization [facility] Address [address] [facility] 7t [place] [address] Care Team Providers Care Carpenter Helper Name Role Phone Unavailable Primary Care Provider Unavailabl e Encounter Details Date Type Department Care Team (Latest Contact Info) Description 01/03/2022 Abstract [facility] CONVERSIONS Dental, Provider, DDS Social History Tobacco [...]
--- OUTSIDE RECORDS SUMMARY | 2025-02-22 07:10 | XMS_ITS | Clinical Summary ---
Author Organization [employer] Address [address] [facility] 7t [place] [address] Care Team Providers Care Garment Manufacturer Name Role Phone Unavailable Primary Care Provider [...]
--- OUTSIDE RECORDS SUMMARY | 2025-02-22 07:10 | XMS_ITS | Encounter Summary ---
Author Organization [employer] Address [address] [facility] 7t [place] [address] Care Team Providers Care Supervisor Fish Bait Processing Name Role Phone Unavailable Primary Care Provider Unavailabl e Encounter Details Date Type Department Care Team (Late st Contact Info) Description 06/20/2023 Abstract [facility] [address] [place] [address] Robin Pastor, ANEESH [address] [place] [address] Social History Tobacco Use Types Packs/Day Years [...]
--- OUTSIDE RECORDS SUMMARY | 2025-02-22 07:10 | XMS_ITS | Encounter Summary ---
Author Organization [facility] Address [address] [place] [address] Care Team Providers Care Route Sales Manager Name Role Phone Pcp, No Primary Care Provider Unavailabl e Encounter Details Date Type Department Care Team (Latest Contact Info) Description 09/21/2024 Hospital Encounter Social History Tobacco Use Types Packs/Day Years Used Date Smoking Tobacco: Never Smokeless Tobacco: Never Alcohol Use Standard Drinks/Week Comments Not Currently 0 (1 standard drink = 0.6 oz pur e alcohol) [facility] Utilities Answer Date Recorded In the past 12 months has e [employer], gas, oil, or water [employer] threatened to shut off services in your [...] were you homeless or living in a intermediate (including now)? Patient unable to answer 09/22/2024 [...] on filedocumented in this encounter Care Teams Route Sales Manager Relationship Specialty Start Date End Date Pcp, Lesley PCP - General General Medicine 11/01/24 documented as of this encounter
[2025-02-22 07:21] LABS: Hematocrit 36.4 % (42.0-52.0); Hemoglobin 12.0 g/dl (14.0-18.0); Mean Corpuscular HGB Conc 33.0 g/dl (31.0-36.0); Mean Corpuscular Hemoglobin 29.6 pg (27.0-33.0); Mean Corpuscular Volume 89.7 fL (80.0-98.0); NRBC Abs Auto 0.000 X10*3/uL (0.0-0.012); NRBC Pct Auto 0.0 /100WBC (0.0-0.2); Platelet Count 169 X10*3/uL (160-400); Red Blood Count 4.06 X10*6/uL (4.60-5.80); White Blood Count 5.3 X10*3/uL (4.8-10.8)
[2025-02-22 07:45] LABS: Alanine Aminotransferase 14 U/L (0-40); Albumin Level 4.1 g/dL (3.5-5.0); Alkaline Phosphatase 72 U/L (39-117); Anion Gap 12 (12-20); Aspartate Amino Transferase 22 U/L (5-37); Blood Urea Nitrogen 27 mg/dL (9-16); Calcium 8.9 mg/dL (8.4-10.2); Carbon Dioxide 22 mmol/L (22-29); Chloride 112 mmol/L (96-108); Estimated Glomerular Filt Rate 33; Iron 68 mcg/dL (45-160); Lipase 23 U/L (8-78); Percent Iron Saturation 25 % (15-50); Potassium 4.3 mmol/L (3.3-5.1); Sodium 142 mmol/L (135-145); Total Iron Binding Capacity 269 mcg/dL (228-428); Total Protein 6.7 g/dL (6.5-8.0); Unsaturated Iron Binding 201 ug/dL
[2025-02-22 07:56] LABS: Ferritin 68 ng/mL (20-250)
[2025-02-22 09:16] LABS: Folate 12.6 ng/mL (> or = 4.0); Vitamin B12 716 pg/mL (200-900)
== END 2025-02-22 07:07 | disposition home or self-care (01) ==
LOC: HO.HSH3N 07:06
PROVIDERS: Visit Provider Nurse Practitioner Acute Care
DX: R53.83 Other fatigue (principal); D64.9 Anemia, unspecified
CPT/HCPCS: 36415; 80053; 82248; 82607; 82728; 82746; 83540; 83690; 85027

== ENCOUNTER 2025-03-01 06:28 | Outpatient (REF) | payer MEDICARE, SELFPAY ==
--- OUTSIDE RECORDS SUMMARY | 2023-10-30 11:00 | XMS_ITS ---
Author Organization [facility] Address [address] [place] [phone] Care Team Providers Care Client Server Developer Name Role Phone Tatum MURRELL, Jamison Primary Care Provider Unavailab Lc William [phone] REASON FOR VISIT barretts esophagus Encounters Encounter Location Date Provider Diagnosis [facility] [address] [place] [phone] 10/30/2023 Lc Avalos Plan Of Treatment No Information Progress Notes * MARIANNE DAVILADOB: 4 (79 yo M)Acc No.[id number]:10/30/2023 Progress Notes Patient: MARIANNE DELGADO Provider: Lissette Avalos MD :1945 A ge:78 Y S ex:Male Date:10/30/2023 Address:[place], [address] [place], [place] [id number] Pcp:Jamison Winn MD Subjective: * Chief Complaints: [...] Avalos MD Date: 0 10/30/2023 Generated for Amori delphine/Yarelig/eTransmitting on: 1 06:30 AM EDT
--- OUTSIDE RECORDS SUMMARY | 2025-02-16 05:30 | XMS_ITS ---
Author Organization [facility] Address [address] [place] [address] Care Team Providers Care Geodetic Computator Name Role Phone Tatum MURRELL, Jamison Primary Care Provider UnavailLc Gayle Unavailable [phone] Allergies Allergen (clinical drug ingredient) Drug/Non Drug Allergy documented on EMR Reaction Allergy Type Onset Date Status sildenafil Sildenafil Unknown Drug Allergy Activ e lisinopril Lisinopril Unknown Drug Allergy Activ e baclofen Baclofen Unknown Drug Allergy Active REASON FOR VISIT Patient presents today for Hoffman's Esophagus Medications Medication SIG (Take, Route, Frequency, Duration) Notes Start Date End Date Status Diphenhydramine 1 tab Oral for 14 days Active oxyCODONE HCl 5 MG 1 tablet as needed Orally every 6 hrs Active ibuprofen 1 tab Oral for 14 days Active Pantoprazole Sodium 40 MG 1 tablet Orall y Once a day for 30 day(s) Active Metoprolol Succinate ER 25 MG 1 tablet O rally Once a day for 30 day(s) Active Mirtazapine 15 MG 1 tablet at bedtime Orally Once a day for 30 day(s) Active Folic Acid 1 MG 1 tablet Orally Once a day for 30 day(s) Active Social History Tobacco Use: Social History Observation Description Date Details (start date - stop date) Never Smoker NA - NA Tobacco Use/Smoking Question Answer Notes Patient is a nonsmoker Alcohol Screen Question Answer Notes Did you have a drink containing alcohol in the p ast year? No Points 0 Interpretation Negative AUDIT-C (Standard) Question Answer Notes Did you have a drink containing alcohol in the p ast year? No Points 0 Interpretation Negative Section Notes: Nonsmoker; recovering alcoho lic x 3-4 years Problems Problem Type SNOMED Code ICD Code Onset Dates Problem Status W/U Status Risk Notes Problem Gallstones (901906105) Gallstones (K80.20) Active confirmed Vital Signs Temperature 97.5 degrees Fahrenheit 02/17/20 25 Blood pressure systolic 001 mm Hg 02/17/20 25 Blood pressure diastolic 01 mm Hg 025 Height 5Ft 9 In in 02/16/2025 Weight 168.0 lbs 02/16/2025 BMI 24.81 kg/m2 02/16/2025 Encounters Encounter Location Date Provider Diagnosis [facility] [address] [place] [address] 02/16/2025 Lc Avalos Chronic GERD K21.9 ; Hoffman esophagus K22.70 and Gallstones K80.20 Assessments Encounter Date Diagnosis (ICD Code) Assessment Notes Treatment Notes Treatment Clinical Notes Section Notes 02/16/2025 Chronic GERD (ICD-10 - K21.9) Continue the Pantoprazole once or twice a day for the acid reflux, and use the Famotidine as needed for heartburn as well Overall, Marianne appears quite well from a clinical standpoint. As best I can tell he is not having any particularly new or significant GI complaints. He does not appear to have lost any significant amount of weight, recent imaging studies over the past couple of months have been nonrevealing, recent laboratories are also reassuring, and his abdominal exam is currently benign. He does not show any signs nor have any symptoms of progressive liver disease. He does not seem to describe any symptoms from his known gallstones. Based on his age and good clinical appearance I do not think an upper endoscopy or any other specific intervention is required on my part. He does have the reported Hoffman's esophagus but given his age and no worrisome symptoms I do not think a repeat endoscopy is needed at this time. I did recommend that he should continue his pantoprazole once or twice a day as well as using the famotidine as needed. At this point his gallstones do not seem problematic but certainly if he develops any significant upper abdominal pain and/or jaundice he should be referred back to the ER for a repeat surgical consultation. His chronic liver disease from alcohol induced issues also seems stable and I do not think he needs any follow-up either. At this point I have advised him to see me as needed. Thank you again for allowing me to have participated in Marianne's care. Please do not hesitate to contact me if I can be of any further assistance in the future. 02/16/2025 Hoffman esophagus (ICD-10 - K22.70) No need for an upper endoscopy given your age and no significant upper GI complaints Overall, Marianne appears quite well from a clinical standpoint. As best I can tell he is not having any particularly new or significant GI complaints. He does not appear to have lost any significant amount of weight, recent imaging studies over the past couple of months have been nonrevealing, recent laboratories are also reassuring, and his abdominal exam is currently benign. He does not show any signs nor have any symptoms of progressive liver disease. He does not seem to describe any symptoms from his known gallstones. Based on his age and good clinical appearance I do not think an upper endoscopy or any other specific intervention is required on my part. He does have the reported Hoffman's esophagus but given his age and no worrisome symptoms I do not think a repeat endoscopy is needed at this time. I did recommend that he should continue his pantoprazole once or twice a day as well as using the famotidine as needed. At this point his gallstones do not seem problematic but certainly if he develops any significant upper abdominal pain and/or jaundice he should be referred back to the ER for a repeat surgical consultation. His chronic liver disease from alcohol induced issues also seems stable and I do not think he needs any follow-up either. At this point I have advised him to see me as needed. Thank you again for allowing me to have participated in [facility]. Please do not hesitate to contact me if I can be of any further assistance in the future. 02/16/2025 Gallstones (ICD-10 - K80.20) You should be referred back to the surgeon at [facility] if you develop any right upper abdominal pain and/or jaundice from the gallstones Overall, Marianne appears quite well from a clinical standpoint. As best I can tell he is not having any particularly new or significant GI complaints. He does not appear to have lost any significant amount of weight, recent imaging studies over the past couple of months have been nonrevealing, recent laboratories are also reassuring, and his abdominal exam is currently benign. He does not show any signs nor have any symptoms of progressive liver disease. He does not seem to describe any symptoms from his known gallstones. Based on his age and good clinical appearance I do not think an upper endoscopy or any other specific intervention is required on my part. He does have the reported Hoffman's esophagus but given his age and no worrisome symptoms I do not think a repeat endoscopy is needed at this time. I did recommend that he should continue his pantoprazole once or twice a day as well as using the famotidine as needed. At this point his gallstones do not seem problematic but certainly if he develops any significant upper abdominal pain and/or jaundice he should be referred back to the ER for a repeat surgical consultation. His chronic liver disease from alcohol induced issues also seems stable and I do not think he needs any follow-up either. At this point I have advised him to see me as needed. Thank you again for allowing me to have participated in Marianne's care. Please do not hesitate to contact me if I can be of any further assistance in the future. Plan Of Treatment Treatment Notes Assessment Notes Chronic GERD Continue the Pantopr azole once or twice a day for the acid reflux, and use the Famotidine as needed for heartburn as well Hoffman esophagus No need for an upper endoscopy given your age and no significant upper GI complaints Gallstones You should be referr ed back to the surgeon at [facility] if you develop any right upper abdominal pain and/or jaundice from the gallstones Progress Notes * MARIANNE DAVILADOB: [birth year] (79 yo M)Acc No.[id number]:02/16/2025 Progress Notes Patient: MARIANNE DELGADO Provider: Lissette Avalos MD :1945 A ge:79 Y S ex:Male Date:02/16/2025 Address:[place] [address] Pcp:Jamison Winn MD Subjective: * Chief Complaints: * 1 . 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 He was accompanied by Carlita from the [facility]. I last saw Marianne in June 2023. Since that time he has reportedly been doing well from a GI standpoint, although there [facility] a [facility] from [facility], Marianne ome last week about him having some upper abdominal discomfort. He does have some memory issues but at the present time denies any specific abdominal complaints. He has been eating fairly well. He did have a modified barium swallow earlier this month and the report describes that there was no evidence of any aspiration. The recommendation from the speech therapist was for a regular diet with regular solids and thin liquids precautions. Marianne denies any particular abdominal pain, significant heartburn, nor any dysphagia. He describes that his bowel movements have been fairly regular and there has been no reported bleeding. There has been no reported weight loss. He does remain on pantoprazole twice a day and as needed famotidine. Laboratories at the end of November revealed a hemoglobin of 13.0 with normal MCV, white blood cell count 7.4, platelets 201,000, normal electrolytes, BUN 31 and creatinine of 1.86 which is his baseline, a CT scan of the abdomen and pelvis in November did not show any sign of mass or ascites. * Medical History: C oronary artery disease with previous DE, GERD was reported Hoffman's esophagus, although I don't have any records of previous endoscopies, Alcohol-induced cirrhosis with sobriety since about 2019. He has not had any complications such as ascites or variceal bleeding as far as I know. A CT scan and MRI in 2021 were negative for any sign of liver mass, Gallstones with cholecystitis in 2021. MRCP was negative for choledocholithiasis. The cholecystitis was treated with IV antibiotics with Dr. Moreira. He opted to hold off on surgery given his age and underlying liver disease., Denies DM,CVA,Lung disease,renal disease, Prostate cancer with surgery as below, There is a report of either dementia or some memory issues. * Surgical History: P [facility] at [facility] . * Family History: F ather: . M other: . No family history of colon cancer or liver cancer. * Social History: T obacco Use: T obacco Use/Smoking P atient is a n onsmoker. D rugs/Alcohol: A lcohol Screen D id you have a drink containing alcohol in the past year? N o, P oints 0 , I nterpretation N egative. M iscellaneous: M arital status: single. Occupation: retired. D rug/Alcohol: A NELL-C (Standard) D id you have a drink containing alcohol in the past year? N o,?Points 0 , I nterpretation N egative. N onsmoker; recovering alcoholic x 3-4 years. * Medications: T aking Mirtazapine 15 MG Tablet 1 tablet at bedtime Orally Once a day , Taking Folic Acid 1 MG Tablet 1 tablet Orally Once a day , Taking Pantoprazole Sodium 40 MG Tablet Delayed Release 1 tablet Orally Once a day , Taking Metoprolol Succinate ER 25 MG Tablet Extended Release 24 Hour 1 tablet Orally Once a day , Taking oxyCODONE HCl 5 MG Tablet 1 tablet as needed Orally every 6 hrs , Taking ibuprofen 1 tab Oral , Taking Diphenhydramine 1 tab Oral , Medication List reviewed and reconciled with the patient * Allergies: L isinopril, Baclofen, Sildenafil. Objective: * Vitals: W t:168.0lbs, Ht: 5Ft 9 In, BMI:24.81Index, BP:001/01mm Hg, Temp:97.5, Ht-cm: 175.26, Wt-k.2. Assessment: * Assessment: 1. C hronic GERD - K21.9 (Primary) 2 . B arrett esophagus - K22.70 ? 3 . G allstones - K80.20 Overall, Marianne appears pal te well from a clinical standpoint. As best I can tell he is not having any particularly new or significant GI complaints. He does not appear to have lost any significant amount of weight, recent imaging studies over the past couple of months have been nonrevealing, recent laboratories are also reassuring, and his abdominal exam is currently benign. He does not show any signs nor have any symptoms of progressive liver disease. He does not seem to describe any symptoms from his known gallstones. Based on his age and good clinical appearance I do not think an upper endoscopy or any other specific intervention is required on my part. He does have the reported Hoffman's esophagus but given his age and no worrisome symptoms I do not think a repeat endoscopy is needed at this time. I did recommend that he should continue his pantoprazole once or twice a day as well as using the famotidine as needed. At this point his gallstones do not seem problematic but certainly if he develops any significant upper abdominal pain and/or jaundice he should be referred back to the ER for a repeat surgical consultation. His chronic liver disease from alcohol induced issues also seems stable and I do not think he needs any follow-up either. At this point I have advised him to see me as needed. Thank you again for allowing me to have participated in Marianne's care. Please do not hesitate to contact me if I can be of any further assistance in the future. Plan: * Treatment: 2. B arrett esophagus Notes: No need for an upper endoscopy given your age and no significant upper GI complaints ? 3. G allstones Notes: You should be referred back to the surgeon at [facility] if you develop any right upper abdominal pain and/or jaundice from the gallstones * Preventive Medicine: Screenings: F all Risk Screening F all Risk Assessment: N o falls in the past year, S creening: N o falls in the past year, A ssessment: N ot performed, no reason specified, P kaylene of Care: N ot documented, no reason specified. * * The named appointment provid er may or may not be the originator of this progress note, and it is not deemed complete until electronically signed by the appointment provider. Sign off status: Pending * Provider: Lissette Avalos MD Date: 0 02/16/2025 Generated for Néstor akers/Earle/Zuleimaitting on: 1 06:31 AM EDT History and Physical Notes * HPI (History of Present Illness) Category Sub-Category Detail Notes Category Not es incontinence I saw Marianne in follow-up today in regard to his underlying history of gastroesophageal reflux with reported Hoffman's esophagus, history of gallstones and previous cholecystitis, and history of alcohol-induced cirrhosis. He was accompanied by Carlita from the [facility]. I last saw Marianne in June 2023. Since that time he has reportedly been doing well from a GI standpoint, although there was a [facility] from [facility] Marianne ome last week about him having some upper abdominal discomfort. He does have some memory issues but at the present time denies any specific abdominal complaints. He has been eating fairly well. He did have a modified barium swallow earlier this month and the report describes that there was no evidence of any aspiration. The recommendation from the speech therapist was for a regular diet with regular solids and thin liquids precautions. Marianne denies any particular abdominal pain, significant heartburn, nor any dysphagia. He describes that his bowel movements have been fairly regular and there has been no reported bleeding. There has been no reported weight loss. He does remain on pantoprazole twice a day and as needed famotidine. Laboratories at the end of November revealed a hemoglobin of 13.0 with normal MCV, white blood cell count 7.4, platelets 201,000, normal electrolytes, BUN 31 and creatinine of 1.86 which is his baseline, a CT scan of the abdomen and pelvis in November did not show any sign of mass or ascites.
--- OUTSIDE RECORDS SUMMARY | 2025-03-01 06:31 | XMS_ITS | Patient Health Record ---
Author Organization [facility] Address [address] [place] [address] Care Team Providers Care Home Inspector Name Role Phone Jamison Winn MD Primary Care Provider UnavailLc Gayle [phone] Allergies Allergen (clinical drug ingredient) Drug/Non Drug [...] Status W/U Status Risk Notes Problem Gallstones (689617059) Gallstones (K80.20) Active confirmed Problem Cirrhotic (386709274) Cirrhosis (K74.60) Active confirmed Problem Alcoholic cirrhosis of liver (029837484) Alcoholic cirrhosis of liver (K70.30) Active confirmed Problem Hoffman esophagus (575824165) 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 Problem Gastroesophageal reflux disease (774714880) Chronic GERD (K21.9) Active confirmed Vital Signs Temperature 97.5 degrees Fahrenheit 02/16/2025 Blood pressure diastolic 01 mm Hg 02/16/2025 Height 5Ft 9 In in 02/16/2025 Blood pressure systolic 001 mm Hg 02/16/2025 Weight 168.0 lbs 02/16/2025 BMI 24.81 kg/m2 02/16/2025 Encounters Encounter Location Date Provider Diagnosis [facility] [address] [place] [phone] 02/16/2025 Lc Avalos Chronic GERD K21.9 ; Hoffman esophagus K22.70 and Gallstones K80.20 [facility] [address] [place] [phone] 02/10/2025 Lc Avalos Assessments Encounter Date Diagnosis [...] for allowing me to have participated in [facility]. Please do not hesitate to contact me [...] for allowing me to have participated in [facility]. Please do not hesitate to contact me if I can be of any further assistance in the future. 02/16/2025 Gallstones (ICD-10 - K80.20) You should be referred back to the surgeon at [facility] if you develop any right upper abdominal [...] [place] [address] [place] [address] [id number] MARIANNE DAVILA Self - patient is the [...] issues Surgical History Surgery Date(Month/Year) Prostatectomy at [facility]
--- OUTSIDE RECORDS SUMMARY | 2025-03-01 06:31 | XMS_ITS | Clinical Summary ---
Author Organization [employer] Address [address] [facility] 7t [place] [address] Care Team Providers Care Cushion Sewer Name Role Phone Unavailable Primary Care Provider [...]
--- OUTSIDE RECORDS SUMMARY | 2025-03-01 06:31 | XMS_ITS | Encounter Summary ---
Author Organization [facility] Address [address] [place] [address] Care Team Providers Care Bobbin Handler Name Role Phone Pcp, No Primary Care Provider Unavailabl e Encounter Details Date Type Department Care Team (Latest Contact Info) Description 09/21/2024 Hospital Encounter Social History Tobacco Use Types Packs/Day Years Used Date Smoking Tobacco: Never Smokeless Tobacco: Never Alcohol Use Standard Drinks/Week Comments Not Currently 0 (1 standard drink = 0.6 oz pur e alcohol) [facility] Utilities Answer Date Recorded In the past 12 months has e [employer] gas, oil, or water [employer] threatened to shut off services in your [...] any time in the past 12 m [facility], were you homeless or living in a [...] on filedocumented in this encounter Care Teams Bobbin Handler Relationship Specialty Start Date End Date Pcp, Lesley PCP - General General Medicine 11/01/24 documented as of this encounter
--- OUTSIDE RECORDS SUMMARY | 2025-03-01 06:31 | XMS_ITS | Clinical Summary ---
Author Organization [facility] Address [address] [place] [address] Care Team Providers Care Adoption Specialist Name Role Phone Pcp, No Primary Care [...] drink = 0.6 oz pur e alcohol) [facility] Utilities Answer Date Recorded In the [...] any time in the [facility] 12 m [facility], were you homeless or living in a residential (including now)? Patient unable to answer 09/22/2024 [...] this topic Medical Devices Implanted Type Area Mold Stacker Device Identifier Shelf Expiration Date Model / Serial / Lot [id number]/58 Lead Pacing 58cm 6fr Hlx Ecrdm Bipolar Actfx Xtd Is 1 Tndrl - [id number] Implanted:Qty : 1 on 09/24/2024 by Lonnie Mehta MD at [facility] Lead N/A: Heart [employer] [id number] 06/26/20272087TC/58 / [id number] / Lead Pacing 52cm 6fr Hlx Ecrdm Bipolar Actfx Is-1 Conn Xtd - [id number] Implanted:Qty : 1 on 09/24/2024 by Lonnie Mehta MD at [facility] Lead N/A: Heart [employer] [id number] 06/26/2027 / [id number] / [id number] Pacemaker Cardiac Thk6mm Assurity Mri 2 Chamber Pls Gntr - [id number] Implanted:Qty : 1 on 09/24/2024 by Lonnie Mehta MD at [facility] Pacemaker Left: Chest Wall [employer] [id number] 01/24/2026 [id number] / [id number] / [place] [id number] Advance Directives Documents on File Type Date Recorded Patient Cottage Master Expl anation Advance Directive-Scan 2024 1:55 PM [...] Decision Thoroughly Discussed with: Legally Auth orized Cottage Master Name of Legally Authorized Cottage Master: Yoon soriano * DNR Date Activated Date Inactivated Comments 09/22/2024 3:16 AM 09/24/2024 11:27 AM Question Answer Comments Decision thoroughly discussed with: Sherly ent arrived with valid [place] DNR Transfer form Care Teams Adoption Specialist Relationship Specialty Start Date End Date Pcp, No PCP - General General Medicine 11/01/24
--- OUTSIDE RECORDS SUMMARY | 2025-03-01 06:31 | XMS_ITS | Encounter Summary ---
Author Organization [facility] Address [address] [facility] 7t [place] [address] Care Team Providers Care Event Services Manager Name Role Phone Unavailable Primary Care Provider Unavailabl e Encounter Details Date Type Department Care Team (Late st Contact Info) Description 06/20/2023 Abstract [facility] D[facility]AL [address] [place] [address] Robin Pastor, ANEESH [address] [place] [address] Social History Tobacco Use Types Packs/Day Years [...]
--- OUTSIDE RECORDS SUMMARY | 2025-03-01 06:31 | XMS_ITS | Encounter Summary ---
Author Organization [employer] Address [address] [facility] 7t [place] [address] Care Team Providers Care Pairer Substandard Name Role Phone Unavailable Primary Care Provider Unavailabl e Encounter Details Date Type Department Care Team (Latest Contact Info) Description 01/03/2022 Abstract [facility] CONVERSIONS Dental, Provider, DDS Social History Tobacco [...]
--- OUTSIDE RECORDS SUMMARY | 2025-03-01 06:31 | XMS_ITS | Encounter Summary ---
Author Organization [employer] Address [address] [facility] 7t [place] [address] Care Team Providers Care Shirt Sorter Name Role Phone Unavailable Primary Care Provider Unavailabl e Encounter Details Date Type Department Care Team (Late st Contact Info) Description 05/03/2023 Abstract [facility] DENTAL [address] [place] [address] Robin Pastor, ANEESH [address] [place] [address] Social History Tobacco Use Types Packs/Day Years [...]
--- OUTSIDE RECORDS SUMMARY | 2025-03-01 06:31 | XMS_ITS | Encounter Summary ---
Author Organization [employer] Address [address] [facility] 7t [place] [address] Care Team Providers Care Airbrush Artist Name Role Phone Unavailable Primary Care Provider Unavailabl e Encounter Details Date Type Department Care Team (Late st Contact Info) Description 06/20/2023 Abstract [facility] DENTAL [address] [place] [address] Robin Pastor, ANEESH [address] [place] [address] Social History Tobacco Use Types Packs/Day Years [...]
[2025-03-01 07:41] LABS: Anion Gap 10 (12-20); Blood Urea Nitrogen 24 mg/dL (9-16); Calcium 8.4 mg/dL (8.4-10.2); Carbon Dioxide 22 mmol/L (22-29); Chloride 111 mmol/L (96-108); Estimated Glomerular Filt Rate 35; Potassium 4.2 mmol/L (3.3-5.1); Sodium 139 mmol/L (135-145)
== END 2025-03-01 06:29 | disposition home or self-care (01) ==
LOC: HO.HSH3N 06:28
PROVIDERS: Visit Provider Nurse Practitioner Acute Care
DX: N18.9 Chronic kidney disease, unspecified (principal)
CPT/HCPCS: 36415; 80048

== ENCOUNTER → 2025-03-06 23:59 | Outpatient (BNV) | payer MEDICARE, SELFPAY ==
--- NOTE | 2025-03-11 16:28 | A.OFFVIS_ITS ---
Intake Visit Reasons: Remote device check- [facility] [employer] Allergies lisinopril (LISINOPRIL) Allergy (Mild, Verified 12/12/24 18:57) UNKNOWN baclofen (BACLOFEN) Allergy (Unknown, Verified 12/12/24 18:57) UNKNOWN shellfish derived (SHELLFISH DERIVED) Allergy (Unknown, Verified 12/12/24 18:57) UNKNOWN PFSH Medical History (Updated 12/25/24 @ 00:02 by Daniel Manuel) Alzheimer disease Cerebral atrophy Intracranial atherosclerosis Carotid stenosis Hypertension TIA (transient ischemic attack) CKD (chronic kidney disease) New onset of congestive heart failure Diverticulitis Dementia Hoffman esophagus Malignant neoplasm of prostate Cirrhosis of liver Surgical History (System 12/02/24 @ 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 CNA) H/O radical prostatectomy Family History Father CAD (coronary artery disease) Social History (System 12/02/24 @ 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 CNA) Household Members: None Housing: House Do you presently have visiting nurse or other home services: No Alcohol intake: former Patient Tobacco Use Status: Never used Tobacco Advance Directives Date on File: 12/22/21 service: No Current occupational status: retired Office Procedures Cardiac Device Check Cardiac Device Check Details: Date of service- 03/06/2025 ; Battery life >10 years; normal lead parameters; AP 55%; GEOPH[employer]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 Overall normal device function. [id number] Cardiac Device Interrogation, pacemaker Procedure code (CPT) selection complete Assessment & Plan Assessment & Plan (1) Pacemaker: Comment: [employer] dual-chamber pacemaker 09/24/2024 Code(s): Z95.0 - Presence of cardiac pacemaker Category: Medical (2) Heart block: Code(s): I45.9 - Conduction disorder, unspecified Category: Medical Plan x Coding Level of Care Code Procedure Only Diagnoses Pacemaker Z95.0 Heart block I45.9 CPT Codes Cardiac Device Check - Cardiac Device 12: [id number] Cardiac Device Interrogation, pacemaker ([id number])
== END ==
PROVIDERS: PCP Nurse Practitioner Acute Care; Visit Provider Internal Medicine
DX: I45.9 Conduction disorder, unspecified (principal); Z95.0 Presence of cardiac pacemaker
CPT/HCPCS: 93294

== ENCOUNTER 2025-03-07 09:39 | Outpatient (REF) | payer MEDICARE, SELFPAY ==
--- OUTSIDE RECORDS SUMMARY | 2023-10-30 11:00 | XMS_ITS ---
Author Organization [facility] Address [address] [place] [phone] Care Team Providers Care Welder Fitter Arc Name Role Phone Tatum MURRELL, Jamison Primary Care Provider Unavailab Lc William [phone] REASON FOR VISIT barretts esophagus Encounters Encounter Location Date Provider Diagnosis [facility] [address] [place] [phone] 10/30/2023 Lc Avalos Plan Of Treatment No Information Progress Notes * MARIANNE DAVILADOB: 4 (79 yo M)Acc No.[id number]:10/30/2023 Progress Notes Patient: MARIANNE DELGADO Provider: Lissette Avalos MD :1945 A ge:78 Y S ex:Male Date:10/30/2023 Address:[place], [facility] Pcp:Jamison Winn MD Subjective: * Chief Complaints: [...] 10/30/2023 Generated for Amori delphine/Yarelig/eTransmitting on: 1 09:42 AM EDT
--- OUTSIDE RECORDS SUMMARY | 2025-02-16 05:30 | XMS_ITS ---
Author Organization [facility] Address [address] [place] [address] Care Team Providers Care Operating Room Technician Name Role Phone Tatum MURRELL, Jamison Primary Care Provider UnavailLc Gayle Unavailable [phone] Allergies Allergen (clinical drug ingredient) Drug/Non Drug Allergy documented on EMR Reaction Allergy Type Onset Date Status sildenafil Sildenafil Unknown Drug Allergy Activ e lisinopril Lisinopril Unknown Drug Allergy Activ e baclofen Baclofen Unknown Drug Allergy Active REASON FOR VISIT Patient presents today for Hoffman's Esophagus Medications Medication SIG (Take, Route, Frequency, Duration) Notes Start Date End Date Status Diphenhydramine 1 tab Oral; Duration : 14 days Active oxyCODONE HCl 5 MG 1 tablet as needed Orally every 6 hrs Active ibuprofen 1 tab Oral; Duration : 14 days Active Pantoprazole Sodium 40 MG 1 tablet Orall y Once a day; Duration: 30 day(s) Active Metoprolol Succinate ER 25 MG 1 tablet O rally Once a day; Duration: 30 day(s) Active Mirtazapine 15 MG 1 tablet at bedtime Orally Once a day; Duration: 30 day(s) Active Folic Acid 1 MG 1 tablet Orally Once a day; Duration: 30 day(s) Active Social History Tobacco Use: [...] Status W/U Status Risk Notes Problem Gallstones (021102906) Gallstones (K80.20) Active confirmed Vital Signs Temperature 97.5 degrees Fahrenheit 02/17/20 25 Blood pressure systolic 001 mm Hg 02/17/20 25 Blood pressure diastolic 01 mm Hg 025 Height 5Ft 9 In in 02/16/2025 Weight 168.0 lbs 02/16/2025 BMI 24.81 kg/m2 02/16/2025 Encounters Encounter Location Date Provider Diagnosis [facility] [address] [place] [address] 02/16/2025 Lc Avalos Chronic GERD K21.9 ; [...] my part. He does have the reported Hoffmna's esophagus but given his age and no [...] for allowing me to have participated in [facility]. Please do not hesitate to contact me [...] for allowing me to have participated in [facility]. Please do not hesitate to contact me if I can be of any further assistance in the future. 02/16/2025 Gallstones (ICD-10 - K80.20) You should be referred back to the surgeon at [facility] if you develop any right upper abdominal [...] referr ed back to the surgeon at [facility] if you develop any right upper abdominal pain and/or jaundice from the gallstones Progress Notes * MARIANNE DAVILADOB: [birth year] (79 yo M)Acc No.[id number]:02/16/2025 Progress Notes Patient: MARIANNE DELGADO Provider: Lissette Avalos MD :1945 A ge:79 Y S ex:Male Date:02/16/2025 Address:[place] [address] Pcp:Jamison Winn MD Subjective: * Chief Complaints: * 1 . 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 He was accompanied by Carlita from the [facility]. I last saw Marianne in [...] History: C oronary artery disease with previous AR, GERD was reported Hoffman's esophagus, although I [...] issues. * Surgical History: P [facility]ctomy at [facility] . * Family History: F ather: [...] be referred back to the surgeon at [facility] if you develop any right upper abdominal [...] 0 02/16/2025 Generated for Néstor akers/Earle/Zuleimaitting on: 09:42 AM EDT History and Physical Notes * HPI (History of Present Illness) Category Sub-Category Detail Notes Category Not es incontinence I saw Marianne in follow-up today in regard to his underlying history of gastroesophageal reflux with reported Hoffman's esophagus, history of gallstones and previous cholecystitis, and history of alcohol-induced cirrhosis. He was accompanied by Carlita from the [facility]. I last saw Marianne in June [...]
[2025-03-07 09:42] LABS: MANUAL DIFF FLAG NO
--- OUTSIDE RECORDS SUMMARY | 2025-03-07 09:42 | XMS_ITS | Encounter Summary ---
Author Organization [employer] Address [address] [facility] 7t [place] [address] Care Team Providers Care Truck Crane Operator Helper Name Role Phone Unavailable Primary Care Provider Unavailabl e Encounter Details Date Type Department Care Team (Late st Contact Info) Description 06/20/2023 Abstract [facility] DENTAL [address] [place] [address] Robin Pastor, ANEESH [address] [place] [address] Social History Tobacco Use Types Packs/Day Years [...]
--- OUTSIDE RECORDS SUMMARY | 2025-03-07 09:42 | XMS_ITS | Clinical Summary ---
Author Organization [employer] Address [address] [facility] 7t [place] [address] Care Team Providers Care Hide And Skin Classer Name Role Phone Unavailable Primary Care Provider Unavailabl e Allergies Active Allergy Reactions Criticality Noted Date Comments Baclofen 10/26/2020 Lisinopril 10/26/2020 Shellfish Protein-Containing Drug Products 10/03/2022 Medications acetaminophen (Tylenol) 325 MG capsule Active [...]
--- OUTSIDE RECORDS SUMMARY | 2025-03-07 09:42 | XMS_ITS | Encounter Summary ---
Author Organization [facility] Address [address] [place] [address] Care Team Providers Care Leg Man Name Role Phone Pcp, No Primary Care Provider Unavailabl e Encounter Details Date Type Department Care Team (Latest Contact Info) Description 09/21/2024 Hospital Encounter Social History Tobacco Use Types Packs/Day Years Used Date Smoking Tobacco: Never Smokeless Tobacco: Never Alcohol Use Standard Drinks/Week Comments Not Currently 0 (1 standard drink = 0.6 oz pur e alcohol) [facility] Utilities Answer Date Recorded In the past 12 months has e [employer] gas, oil, or water [employer] threatened to shut off services in your [...] were you homeless or living in a snf (including now)? Patient unable to answer 09/22/2024 [...] * Question Answer Date of Assessment Author AUDIT-C Total Score - Male 0 09/22/2024 5:00 AM EDT Sherin Claudio RN Q1: How often do you have a [...] 5:00 AM EDT Sherin Claudio RN * Level of Risk per Screen Answer Date of Assessment Author Low Risk 09/22/2024 12:12 AM EDT Giovanna Kerr RN documented as of this encounter Plan of Treatment Not on file documented as of this encounter Visit Diagnoses Not on filedocumented in this encounter Care Teams Leg Man Relationship Specialty Start Date End Date Pcp, No PCP - General General Medicine 6/8/25 documented as of this encounter
--- OUTSIDE RECORDS SUMMARY | 2025-03-07 09:42 | XMS_ITS | Encounter Summary ---
Author Organization [employer] Address [address] [facility] 7t [place] [address] Care Team Providers Care Deputy Insurance Commissioner Name Role Phone Unavailable Primary Care Provider Unavailabl e Encounter Details Date Type Department Care Team (Late st Contact Info) Description 05/03/2023 Abstract [facility] D[facility] [address] [place] [address] Robin Pastor, ANEESH [address] [place] [address] Social History Tobacco Use Types Packs/Day Years [...]
--- OUTSIDE RECORDS SUMMARY | 2025-03-07 09:42 | XMS_ITS | Patient Health Record ---
Author Organization [facility] Address [address] [place] [address] Care Team Providers Care Rn Occupational Name Role Phone Jamison Winn MD Primary Care Provider UnavailLc Gayle [phone] Allergies Allergen (clinical drug ingredient) Drug/Non Drug [...] Once a day; Duration: 30 day(s) Active Immunizations Vaccine Route Administration [...] Status W/U Status Risk Notes Problem Gallstones (043323566) Gallstones (K80.20) Active confirmed Problem Cirrhotic (457971005) Cirrhosis (K74.60) Active confirmed Problem Alcoholic cirrhosis of liver (744163029) Alcoholic cirrhosis of liver (K70.30) Active confirmed Problem Hoffman esophagus (701731339) 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 Problem Gastroesophageal reflux disease (disorder) (077409111) Chronic GERD (K21.9) Active confirmed Vital Signs Temperature 97.5 degrees Fahrenheit 02/16/2025 Blood pressure diastolic 01 mm Hg 02/16/2025 Height 5Ft 9 In in 02/16/2025 Blood pressure systolic 001 mm Hg 02/16/2025 Weight 168.0 lbs 02/16/2025 BMI 24.81 kg/m2 02/16/2025 Encounters Encounter Location Date Provider Diagnosis [facility] [address] [place] [address] 02/16/2025 Lc Avalos Chronic GERD K21.9 ; Hoffman esophagus K22.70 and Gallstones K80.20 [facility] [address] [place] [address] 02/10/2025 Lc Avalos Assessments Encounter Date Diagnosis [...] for allowing me to have participated in [facility]. Please do not hesitate to contact [...] for allowing me to have participated in [facility]. Please do not hesitate to contact me if I can be of any further assistance in the future. 02/16/2025 Gallstones (ICD-10 - K80.20) You should be referred back to the surgeon at [facility] if you develop any right upper abdominal [...] Date MEDICARE OF [place] [address] [place] [address] [phone] [id number] MARIANNE DAVILA Self - patient is the insured Medical (General) History Medical History History ICD Code Coronary artery disease with previous [place] GERD was reported Hoffman's esophagus, although I [...] Surgery Date(Month/Year) Prostatectomy at [facility]
--- OUTSIDE RECORDS SUMMARY | 2025-03-07 09:42 | XMS_ITS | Clinical Summary ---
Author Organization [facility] Address [address] [place] [id number] Care Team Providers Care Car Cleaner Name Role Phone Pcp, No Primary Care [...] drink = 0.6 oz pur e alcohol) [facility] Utilities Answer Date Recorded In the past [...] any time in the past 12 m [facility], were you homeless or living in a [facility] (including now)? Patient unable to answer 09/22/2024 [...] this topic Medical Devices Implanted Type Area Loan Administrator Device Identifier Shelf Expiration Date Model / Serial / Lot [id number] Lead Pacing 58cm 6fr Hlx Ecrdm Bipolar Actfx Xtd Is 1 Tndrl - [id number] Implanted:Qty : 1 on 09/24/2024 by Lonnie Mehta MD at [facility] Lead N/A: Heart [employer] [id number] 06/26/20272087TC/58 / [id number] / Lead Pacing 52cm 6fr Hlx Ecrdm Bipolar Actfx Is-1 Conn Xtd - [id number] Implanted:Qty : 1 on 09/24/2024 by Lonnie Mehta MD at [facility] Lead N/A: Heart [employer] [id number] 06/26/2027 / [id number] / [id number] Pacemaker Cardiac Thk6mm Assurity Mri 2 Chamber Pls Gntr - [id number] Implanted:Qty : 1 on 09/24/2024 by Lonnie Mehta MD at [facility] Pacemaker Left: Chest Wall [employer] [id number] 01/24/2026 [id number] / [id number] / [place] [id number] Advance Directives Documents on File Type Date Recorded Patient Attending Ambulatory Care Expl anation Advance Directive-Scan 2024 1:55 PM [...] Decision Thoroughly Discussed with: Legally Auth orized Attending Ambulatory Care Name of Legally Authorized Attending Ambulatory Care: Yoon soriano * DNR Date Activated Date Inactivated Comments 09/22/2024 3:16 AM 09/24/2024 11:27 AM Question Answer Comments Decision thoroughly discussed with: Sherly ent arrived with valid State of [place] DNR Transfer form Care Teams Car Cleaner Relationship Specialty Start Date End Date Pcp, No PCP - General General Medicine 11/01/24
--- OUTSIDE RECORDS SUMMARY | 2025-03-07 09:42 | XMS_ITS | Encounter Summary ---
Author Organization [employer] Address [address] [place] [address] Care Team Providers Care Mall Manager Name Role Phone Unavailable Primary Care Provider Unavailabl e Encounter Details Date Type Department Care Team (Late st Contact Info) Description 06/20/2023 Abstract [facility] [address] [place] [address] Robin Pastor, ANEESH [address] [place] [address] Social History Tobacco Use Types Packs/Day Years [...]
--- OUTSIDE RECORDS SUMMARY | 2025-03-07 09:43 | XMS_ITS | Encounter Summary ---
Author Organization [employer] Address [address] [facility] [place] [address] Care Team Providers Care Housekeeping Aid Name Role Phone Unavailable Primary Care Provider Unavailabl e Encounter Details Date Type Department Care Team (Latest Contact Info) Description 01/03/2022 Abstract [facility] Dental, Provider, DDS Social History [...]
[2025-03-07 09:50] LABS: Hematocrit 32.5 % (42.0-52.0); Hemoglobin 10.5 g/dl (14.0-18.0); Imm Gran Abs Auto 0.04 X10*3/uL (0.00-0.03); Imm Gran Pct Auto 0.6 % (0.0-0.4); Lymphocytes Absolute Auto 1.1 X10*3/uL (1.2-4.9); Mean Corpuscular HGB Conc 32.3 g/dl (31.0-36.0); Mean Corpuscular Hemoglobin 29.1 pg (27.0-33.0); Mean Corpuscular Volume 90.0 fL (80.0-98.0); NRBC Abs Auto 0.000 X10*3/uL (0.0-0.012); NRBC Pct Auto 0.0 /100WBC (0.0-0.2); Platelet Count 146 X10*3/uL (160-400); Red Blood Count 3.61 X10*6/uL (4.60-5.80); White Blood Count 6.6 X10*3/uL (4.8-10.8)
[2025-03-07 10:02] LABS: Anion Gap 13 (12-20); Blood Urea Nitrogen 26 mg/dL (9-16); Calcium 8.5 mg/dL (8.4-10.2); Carbon Dioxide 21 mmol/L (22-29); Chloride 110 mmol/L (96-108); Estimated Glomerular Filt Rate 33; Potassium 3.9 mmol/L (3.3-5.1); Sodium 140 mmol/L (135-145)
== END 2025-03-07 09:40 | disposition home or self-care (01) ==
LOC: HO.HSH3N 09:39
PROVIDERS: Visit Provider Nurse Practitioner Acute Care
DX: I50.31 Acute diastolic (congestive) heart failure (principal)
CPT/HCPCS: 36415; 80048; 85025

== ENCOUNTER 2025-03-27 12:45 | Inpatient (IN) | payer MEDICARE, SELFPAY ==
--- OUTSIDE RECORDS SUMMARY | 2023-10-30 11:00 | XMS_ITS ---
Author Organization [facility] Address [address] [place] [address] Care Team Providers Care Revenue Stamp Cutter Name Role Phone Tatum MURRELL, Jamison Primary Care Provider Unavailab Lc William [phone] REASON FOR VISIT barretts esophagus Encounters Encounter Location Date Provider Diagnosis [facility] [address] [place] [phone] 10/30/2023 Lc Avalos Plan Of Treatment No Information Progress Notes * MARIANNE DAVILADOB: 4 (79 yo M)Acc No.[id number]:10/30/2023 Progress Notes Patient: MARIANNE DELGADO Provider: Lissette Avalos MD :1945 A ge:78 Y S ex:Male Date:10/30/2023 Address:[place], [address] [place], [place] [id number] Pcp:Jamison Winn MD Subjective: * Chief Complaints: [...] 0 10/30/2023 Generated for Néstor akers/Earle/eTransmitting on: 05/27/2024 02:15 PM EDT
[2025-03-27] VITALS (18 sets, daily range): BP systolic 110–166; BP diastolic 50–74; PULSE 63–107; RESP 11–28; TEMP 36.2–40.3; O2SAT 70–97; BMI 24.3; BMI 25.5
--- NOTE | ~2025-03-27 | IR_ITS ---
PROCEDURE: IR INSERTION OF TUNNEL CATHETER CLINICAL INFORMATION: CLINICAL HISTORY: IV antibiotics. PROCEDURES: 1. Real-time ultrasound guided access into the right internal jugular vein after documentation of selective vessel patency, and permanent imaging storing in the patient records. 2. Placement of a 5 Fr, 22 cm tunneled, dual-lumen power injectable Huerta CLINICIAN: Sam Vyas NP MEDICATIONS: -Lidocaine 1% 10 ml, SQ. -Additional details, please see nursing flowsheet. Complications: None. Estimated blood loss: <5 ml Specimens: None. Contrast: None. Fluoroscopy time: 2.1 min PROCEDURE NOTE: The procedure, risks, benefits, and alternatives were carefully explained to the patient and written informed consent was obtained. The patient was placed supine on the fluoroscopy table. A timeout was performed. The right neck and chest was prepped and draped in usual sterile fashion. Local anesthesia was administered to the right neck access site with lidocaine. Under ultrasound guidance, the right internal jugular vein was accessed with a 5 fr micropuncture set. A permanent ultrasound picture was saved. A peel-away sheath was advanced over the wire. The catheter was measured and cut to length. Next, subcutaneous lidocaine was administered to the chest. Using blunt dissection, a subcutaneous tunnel was created that connects from the upper chest to the venotomy site. The catheter was pulled through the tunnel. The catheter was advanced through the sheath over a wire, which was subsequent peeled away. The wire was removed. The catheter was tested, flushed, and sutured to the skin with its tip in the cavoatrial junction. The venotomy site was closed with surgical glue. A dry sterile dressing was applied to the chest and the venotomy site. A permanent chest fluoroscopic image was saved demonstrating the catheter tip in the cavoatrial junction. The patient was stable after the procedure was transferred back to the floor. IR/IR cvc insert central tunnel IMPRESSION: Placement of a tunneled dual-lumen Huerta catheter PLAN: -The catheter may be used immediately. This procedure was performed by Sam Vyas NP, and supervised by Andres Waldrop M.D. Electronically signed by: Andres Waldrop MD 04/02/2025 11:[address] [facility] Workstation: [id number]
--- NOTE | ~2025-03-27 | CT_ITS ---
CLINICAL HISTORY: n v CT abdomen and pelvis without IV contrast. Comparison: CT/REG/SR - CT ABDOMEN PELVIS WO IV CON - 12/13/24 08:38 EDT Findings: Basilar atelectasis versus infiltrates. No dependent layering pleural effusions. The heart is not enlarged. Coronary artery calcifications moderate.Dual-chamber pacemaker. Liver normal size, attenuation and contour. Gallbladder not visualized. Homogeneous attenuation of the pancreas. No splenomegaly. Normal adrenal glands. No kidney stones or evidence of obstructive uropathy. Bowel demonstrates a nonobstructive pattern. No free air. Normal appendix mild mural thickening of the colon reflecting colitis.Diverticulosis coli. Post prostatectomy. Decompressed urinary bladder with Morton balloon catheter. Chronic L5 pars defect with stable spondylolisthesis L5-S1. Bridging syndesmophytes. Stable degenerative spondylosis. No acute compression fractures. Impression: 1. Mild colitis. Normal appendix. Diverticulosis coli. 2. Basilar infiltrates. Sliding hiatal hernia 3. Stable ancillary findings This document has been electronically signed by: Antwan Mcfarlane MD on 03/27/2025 15:03:52
--- NOTE | ~2025-03-27 | IR_ITS ---
PROCEDURE: IR INSERTION OF TUNNEL CATHETER CLINICAL INFORMATION: CLINICAL HISTORY: IV antibiotics. PROCEDURES: 1. Real-time ultrasound guided access into the right internal jugular vein after documentation of selective vessel patency, and permanent imaging storing in the patient records. 2. Placement of a 5 Fr, 22 cm tunneled, dual-lumen power injectable [place] CLINICIAN: Sam Vyas NP MEDICATIONS: -Lidocaine 1% 10 ml, SQ. -Additional details, please see nursing flowsheet. Complications: None. Estimated blood loss: <5 ml Specimens: None. Contrast: None. Fluoroscopy time: 2.1 min PROCEDURE NOTE: The procedure, risks, benefits, and alternatives were carefully explained to the patient and written informed consent was obtained. The patient was placed supine on the fluoroscopy table. A timeout was performed. The right neck and chest was prepped and draped in usual sterile fashion. Local anesthesia was administered to the right neck access site with lidocaine. Under ultrasound guidance, the right internal jugular vein was accessed with a 5 fr micropuncture set. A permanent ultrasound picture was saved. A peel-away sheath was advanced over the wire. The catheter was measured and cut to length. Next, subcutaneous lidocaine was administered to the chest. Using blunt dissection, a subcutaneous tunnel was created that connects from the upper chest to the venotomy site. The catheter was pulled through the tunnel. The catheter was advanced through the sheath over a wire, which was subsequent peeled away. The wire was removed. The catheter was tested, flushed, and sutured to the skin with its tip in the cavoatrial junction. The venotomy site was closed with surgical glue. A dry sterile dressing was applied to the chest and the venotomy site. A permanent chest fluoroscopic image was saved demonstrating the catheter tip in the cavoatrial junction. The patient was stable after the procedure was transferred back to the floor. IR/IR us guide venous access IMPRESSION: Placement of a tunneled dual-lumen Hu[place] catheter PLAN: -The catheter may be used immediately. This procedure was performed by Sam Vyas NP, and supervised by Andres Waldrop M.D. Electronically signed by: Andres Waldrop MD 04/02/2025 11:52 AM [facility] Workstation: [id number]
--- NOTE | ~2025-03-27 | XR_ITS ---
CLINICAL HISTORY: SOB, on high flow 1 view chest x-ray Comparison: CT/SR - CT CHEST WO IV CON - 03/27/25 13:32 EDT CR - XR CHEST 1V - 03/27/25 13:04 EDT Findings: Left-sided pacemaker is again seen with right atrial right ventricular pacer leads. Cardiac silhouette is unchanged in size. Increasing bilateral perihilar interstitial prominence with bronchial wall thickening. No dense areas of consolidation are seen. Small right pleural effusion with potential trace left pleural effusion. No pneumothorax. IMPRESSION: Findings suggestive of mild volume overload. Bilateral perihilar bronchitis/bronchiolitis could give a similar appearance. This document has been electronically signed by: Gustavo Ponce MD on 03/28/2025 01:35:34
--- NOTE | ~2025-03-27 | CT_ITS ---
CLINICAL HISTORY: pneumonia CT chest without contrast Comparison: CR - XR CHEST 1V - 03/27/25 13:04 EDT CR - XR CHEST 1V - 12/15/24 17:49 EDT Findings: Normal heart size. No pericardial effusion. Calcific coronary artery disease: Moderate. Dual-chamber pacemaker. No bulky mediastinal lymphadenopathy. Sliding hiatal hernia. Basilar atelectasis versus infiltrates. These are new. No pneumothorax or pleural effusions, plaques or calcifications. Central airways are patent. No bronchiectasis. No thyroid nodules. No chest wall masses. No axillary adenopathy. Limited view of the upper abdomen is normal. Bridging syndesmophytes. No acute compression fractures. Impression: 1. Bibasilar infiltrates versus atelectasis possibly pneumonic. Shotty reactive mediastinal lymph nodes. No parapneumonic effusion. 2. Moderate calcified coronary artery disease. 3. Moderate sliding hiatal hernia This document has been electronically signed by: Antwan Mcfarlane MD on 03/27/2025 14:59:42
--- NOTE | ~2025-03-27 | XR_ITS ---
CLINICAL HISTORY: cp 1 view chest Comparison: CR - XR CHEST 1V - 12/15/24 17:49 EDT Findings: Low inspiration. Resultant mild vascular crowding centrally with subsegmental atelectasis. Stable pleural-parenchymal disease lung bases. Heart size normal. Dual-chamber pacemaker. No acute fractures. Impression: 1. Low inspiration with central vascular crowding and subsegmental atelectasis. 2. Stable mild pleural-parenchymal disease lung bases. This document has been electronically signed by: Antwan Mcfarlane MD on 03/27/2025 13:59:14
--- NOTE | ~2025-03-27 | US_ITS ---
CLINICAL HISTORY: RUQ pain, elevated LFTs, fever --- Additional Notes or Special Instructions: TO BE DONE IN AM PER DR DAMON US abdomen limited Comparison: None provided Findings: The visualized pancreas is normal. The aorta and inferior vena cava are normal caliber. The liver is normal in size and echotexture. There is no intrahepatic bile duct dilatation. The common duct is 3.0 mm in diameter. There are no abnormal findings in the gallbladder fossa. There is no sonographic Curiel sign. The main portal vein is antegrade. The right kidney is 8.2 cm in length. No ascites. IMPRESSION: Unremarkable limited abdominal ultrasound. This document has been electronically signed by: Andres Paredes MD on 03/28/2025 08:46:31
--- NOTE | 2025-03-27 12:52 | ECG_ITS ---
Test Reason : DIFF BREATHING Blood Pressure : */* mmHG Vent. Rate : 96 BPM Atrial Rate : 96 BPM P-R Int : 152 ms QRS Dur : 170 ms QT Int : 436 ms P-R-T Axes : 17 -40 72 degrees QTcB Int : 550 ms Atrial-sensed ventricular-paced rhythm Abnormal ECG When compared with ECG of 12-Dec-2024 19:05, Vent. rate has increased by 18 bpm Referred By: Zainab Wilson Electronically Signed By: MONICA FRIAS
[2025-03-27 13:07] LABS: MANUAL DIFF FLAG NO
--- NOTE | 2025-03-27 13:09 | ED.GENADULT ---
HPI - General Adult General Chief complaint: Nausea/Vomiting/Diarrhea Stated complaint: N/V,SOB 96% ON NRB FROM SNF/[facility] PER EMS Time Seen by Provider: 03/27/25 12:48 History of Present Illness HPI narrative: H&P on the day of admission 79-year-old male with a past medical history of HTN, HLD, CHF, CVA, prostate cancer, heart block status post pacemaker in September 2024; anxiety, depression, [employer] home resident. Presented with having coughing question aspiration. Patient unable to give detailed. Feels very weak. Unable to answer question. In extremis. Related Data Home Medications ?Medication ?Instructions ?Recorded ?Confirmed allopurinol 100 mg tablet 50 mg PO DAILY 12/18/21 03/27/25 cholecalciferol (vitamin D3) 50 50 mcg PO DAILY 12/18/21 03/27/25 mcg (2,000 unit) tablet loratadine 10 mg tablet 10 mg PO BEDTIME 12/18/21 03/27/25 pantoprazole 40 mg tablet,delayed 40 mg PO BID@0630,1630 06/17/23 03/27/25 release mirtazapine 30 mg tablet 30 mg PO BEDTIME 03/02/24 03/27/25 multivitamin 1 tab PO DAILY 05/06/24 03/27/25 thiamine HCl (vitamin B1) 100 mg 100 mg PO DAILY 05/06/24 03/27/25 tablet acetaminophen 325 mg tablet 650 mg PO BID 05/28/24 03/27/25 aluminum-mag hydroxide-simethicone 30 ml PO TID PRN Heartburn 05/28/24 03/27/25 200 mg-200 mg-20 mg/5 mL oral susp (Mag-Al Plus) calcium carbonate 500 mg PO Q4H PRN Heartburn 05/28/24 03/27/25 famotidine 20 mg tablet 20 mg PO DAILY PRN Heartburn 05/28/24 03/27/25 lactase 3,000 unit tablet 3,000 unit PO Q1H PRN Lactose 05/28/24 03/27/25 Intolerance ondansetron 4 mg disintegrating 4 mg PO Q6H PRN Nausea And Vomiting 05/28/24 03/27/25 tablet polyethylene glycol 3350 17 gram 17 g PO DAILY PRN Constipation 05/28/24 03/27/25 oral powder packet sertraline 50 mg tablet 50 mg PO DAILY 07/29/24 03/27/25 tamsulosin 0.4 mg capsule (Flomax) 0.4 mg PO BEDTIME 07/29/24 03/27/25 amiodarone 200 mg tablet 200 mg PO DAILY 10/23/24 03/27/25 acetaminophen 325 mg tablet 650 mg PO Q4H PRN Pain (Scale 12/13/24 03/27/25 Score 1-3) ferrous sulfate 325 mg (65 mg 325 mg PO DAILY 12/13/24 03/27/25 iron) tablet metoprolol succinate 25 mg 25 mg PO DAILY 12/13/24 03/27/25 tablet,extended release 24 hr acetaminophen 650 mg rectal 650 mg VT Q6H PRN Fever Or Pain 03/27/25 03/27/25 suppository ipratropium 0.5 mg-albuterol 3 mg 3 ml inhalation Q4H PRN Shortness 03/27/25 03/27/25 (2.5 mg base)/3 mL nebulization Of Breath Or Wheezing soln Previous Rx's ?Medication ?Instructions ?Recorded amlodipine 2.5 mg tablet 2.5 mg PO DAILY 90 days #90 tabs 05/08/24 atorvastatin 40 mg tablet 40 mg PO BEDTIME 90 days #90 tabs 05/08/24 clopidogrel 75 mg tablet 75 mg PO DAILY 90 days #90 tabs 05/08/24 Allergies Allergy/AdvReac Type Severity Reaction Status Date / Time lisinopril (LISINOPRIL) Allergy Mild UNKNOWN Verified 12/12/24 18:57 baclofen (BACLOFEN) Allergy Unknown UNKNOWN Verified 12/12/24 18:57 shellfish derived (SHELLFISH Allergy Unknown UNKNOWN Verified 12/12/24 18:57 DERIVED) cephalexin (From Keflex) Allergy Unknown Verified 03/27/25 12:48 Review of Systems Review of Systems: Unable to obtain review of systems secondary to patient's condition [facility] Past Medical History Medical History Alzheimer disease Cerebral atrophy Intracranial atherosclerosis Carotid stenosis Hypertension TIA (transient ischemic attack) CKD (chronic kidney disease) New onset of congestive heart failure Diverticulitis Dementia Hoffman esophagus Malignant neoplasm of prostate Cirrhosis of liver Surgical History H/O radical prostatectomy Family History Family History Father CAD (coronary artery disease) Social History Social History Household Members: None Housing: House Do you presently have visiting nurse or other home services: No Alcohol intake: former Patient Tobacco Use Status: Never used Tobacco Advance Directives: Yes Advance Directives on File: Yes Advance Directives Date on File: 12/22/21 service: No Current occupational status: retired Physical Exam ED Exam Exam: Appearance: Sick appearing male looks older than stated age short of breath Eyes: Pupils equal, round and reactive to light. ENT: Pharynx normal. Neck: Normal inspection. Neck supple. No lymph nodes noted. No crepitus CVS: Normal heart rate and rhythm. Pulses normal. Normal S1 and S2 Respiratory: No respiratory distress. Breath sounds normal. No Wheezing. No rales Abdomen: Soft and nontender. No rigidity. No distention. Skin: Skin warm and dry. Normal skin color. Normal skin turgor. Extremities: No lower extremity edema. Neurovascular intact to all extremities. No Lacerations. No Rash Neuro: Oriented possibly self only. Moving extremities Vital Signs: Vital Signs - 24 hr 03/27/25 12:45 03/27/25 13:09 03/27/25 13:15 Temperature 104.5 F H Pulse Rate 102 H 90 Respiratory Rate 26 H 28 H 22 H Blood Pressure 121/57 L 118/57 L Pulse Oximetry 81 L Oxygen Delivery Method Room Air Oxygen Flow Rate Fraction of Inspired Oxygen 03/27/25 13:20 03/27/25 13:44 03/27/25 14:17 Temperature 101.6 F H 100.1 F Pulse Rate 78 85 Respiratory Rate 20 21 H Blood Pressure 119/54 L 139/66 Pulse Oximetry 90 L 92 95 Oxygen Delivery Method High Flow Nasal Cannula High Flow Nasal Cannula High Flow Nasal Cannula Oxygen Flow Rate 55 55 55 Fraction of Inspired Oxygen 65 03/27/25 14:23 03/27/25 14:43 03/27/25 15:48 Temperature 98.2 F 97.9 F Pulse Rate 80 73 69 Respiratory Rate 18 18 16 Blood Pressure 149/64 H 121/59 L 120/66 Pulse Oximetry 96 96 94 Oxygen Delivery Method High Flow Nasal Cannula High Flow Nasal Cannula High Flow Nasal Cannula Oxygen Flow Rate 55 55 55 Fraction of Inspired Oxygen BMI result Body Mass Index 24.3 Medications Administered Generic Name Dose Route Start Last Admin Trade Name Freq PRN Reason Stop Dose Admin Heparin Sodium (Porcine) 5,000 unit 03/27/25 17:00 03/27/25 16:50 Heparin Sodium,Porcine 5,000 Unit/Ml Vial SUBCUT 5,000 unit Q12H SERGIO Administration Ceftriaxone Sodium 1 gm/ 50 mls @ 100 mls/hr 03/27/25 17:00 03/27/25 16:45 Sodium Chloride IV 100 mls/hr Q24H SERGIO Administration Doxycycline Hyclate 100 mg/ 250 mls @ 166.67 mls/hr 03/27/25 17:00 03/27/25 16:42 Sodium Chloride IV 166.67 mls/hr Q12H SERGIO Administration Discontinued Medications Generic Name Dose Route Start Last Admin Trade Name Freq PRN Reason Stop Dose Admin Acetaminophen 650 mg 03/27/25 12:51 03/27/25 13:01 Acetaminophen Supp 650 Mg Supp.Rect VT 03/27/25 12:52 Not Given ONCE ONE Sodium Chloride 1,000 mls @ 999 mls/hr 03/27/25 13:00 03/27/25 14:23 Ns IV 03/27/25 14:00 Infused .Q1H1M SERGIO Infusion Sodium Chloride 1,000 mls @ 999 mls/hr 03/27/25 13:15 03/27/25 14:23 Ns IV 03/27/25 14:15 Infused .Q1H1M SERGIO Infusion Sodium Chloride 500 mls @ 999 mls/hr 03/27/25 13:45 03/27/25 14:23 Ns IV 03/27/25 14:15 Infused .Q31M SERGIO Infusion Meropenem 1 gm 03/27/25 12:54 03/27/25 13:02 Meropenem 1 Gm Vial IVPUSH 03/27/25 12:55 1 gm ONCE ONE Administration Medical Decision Making Medical Decision Making [facility] Narrative: Patient presented today with having a high fever 104 with having coughing nausea vomiting very similar to previous bouts of aspiration pneumonia. Has a question history of allergic reaction to Keflex. Cultures obtained immediately. Lactate ordered. I reviewed patient's previous echo results which showed the following 1. [id number] LV systolic dysfunction with LVEF of 40-45% 2. Mild calcific aortic and mitral valve changes noted with normal cardiac valvular Dopplers 3. Upper limits of normal RV systolic pressures I did give patient 30 cc/kilos of IV fluids. After finding out about his echo results. I did also did a pacemaker checked. I spoke with the tech from [facility]. There was no arrhythmia noted. There is no signs of congestive heart failure noted. My interpretation of patient's EKG showed a paced rhythm. Patient was given a cooling blanket as he had an elevated creatinine baseline. Mcintosh he was not a good candidate for NSAIDs. He also had Tylenol at approximately 11:00 which is about 2 hours into patient is visit. Not a good candidate for Tylenol either. We tried to use cooling blanket to get the temperature down. Was found to have a low O2 sat. Question if this is secondary to hypoxia secondary to aspiration. BNP slightly elevated at 3000. High even at patient's 79 age . However patient's clinical picture more consistent with a pneumonia. We did an ABG which showed no acidosis but pCO2 that is 28. Likely metabolic. Compensated. PaO2 was 66 found the high-flow O2. Hypoxic. I chose to give patient a dose of meropenem. Urine showed no signs of infection. Respiratory panel sent. CT scan of the chest abdomen pelvis was done. Consistent with having pneumonia. Antibiotics already given. Patient's temperature is coming down. Repeat focal exam for sepsis was done. Symptomatically feels improved. Patient case evaluated by the hospitalist team. Will admit patient for further evaluation. Differential Diagnosis Differential Diagnoses: The differential diagnosis associated with the presentation includes Pneumonia, congestive heart failure, pneumothorax Admission/Observation Consideration of admission/observation: Escalation of care including admission/observation considered Consult Healthcare Provider Management of the patient was discussed with: Hospitalist Lab Data [facility] Lab Attestation statement: I reviewed the patient's lab results. 03/27/25 12:59 03/27/25 12:59 Labs: Lab Results 03/27/25 03/27/25 03/27/25 Range/Units 12:57 12:59 12:59 WBC 5.8 (4.8-10.8) X10*3/uL RBC 4.24 L (4.60-5.80) X10*6/uL Hgb 12.5 L (14.0-18.0) g/dl Hct 38.3 L (42.0-52.0) % MCV 90.3 (80.0-98.0) fL MCH 29.5 (27.0-33.0) pg MCHC 32.6 (31.0-36.0) g/dl RDW 15.0 (11.0-16.0) % Plt Count 101 L D (160-400) X10*3/uL MPV 10.2 (9.4-12.4) fL Immature Gran % (Auto) 0.5 H (0.0-0.4) % Neut % (Auto) 85.2 H (45-73) % Lymph % (Auto) 7.4 L (20-40) % Door % (Auto) 6.4 (2-11) % Eos % (Auto) 0.2 (0-4) % Baso % (Auto) 0.3 (0-2) % Lymph # (Auto) 0.4 L (1.2-4.9) X10*3/uL Door # (Auto) 0.4 (0.1-1.2) X10*3/uL Eos # (Auto) 0.0 (0.0-0.4) X10*3/uL Baso # (Auto) 0.0 (0.0-0.2) X10*3/uL Abs Immat Gran (auto) 0.03 (0.00-0.03) X10*3/uL Absolute Neuts (auto) 5.0 (2.0-8.3) x10*3/uL Absolute Nucleated RBC 0.000 (0.0-0.012) X10*3/uL Nucleated RBC % (auto) 0.0 (0.0-0.2) /100WBC Hold Purple Top SEE NOTE SEE NOTE PT (10.9-12.4) SEC INR (0.9-1.1) O2 Saturation % ABG pH at Pt Temp (7.35-7.45) ABG pCO2 at Pt Temp (32-45) mmHg ABG pO2 at Pt Temp (83-108) mmHg ABG HCO3 (22-26) mmol/L ABG Base Excess (Actual) mmol/L Sodium 141 (135-145) mmol/L Potassium 4.2 (3.3-5.1) mmol/L Chloride 110 H (96-108) mmol/L Carbon Dioxide 19 L (22-29) mmol/L Anion Gap 16 (12-20) BUN 23 H (9-16) mg/dL Creatinine 2.29 H (0.5-1.4) mg/dL Estim Creat Clear Calc 25.2 Estimated GFR 28 Random Glucose 132 H (60-115) mg/dL Lactic Acid 1.6 (0.5-2.0) mmol/L Calcium 8.9 (8.4-10.2) mg/dL Total Bilirubin 1.3 H (0.0-1.0) mg/dL Direct Bilirubin 0.7 H (0.0-0.5) mg/dL AST 69 H (5-37) U/L ALT 51 H (0-40) U/L Alkaline Phosphatase 99 (39-117) U/L Total Creatine Kinase 103 (38-174) U/L Troponin I High Sens 37.9 H D (<3.5-35.0) ng/L NT-Pro-B Natriuret Pep 3094.8 H (<300) pg/mL Total Protein 6.9 (6.5-8.0) g/dL Albumin 4.3 (3.5-5.0) g/dL Procalcitonin 12.68 ng/mL Urine Color Urine Appearance Urine pH (5.0-9.0) Ur Specific Sharon (1.005-1.025) Urine Protein (Neg-Trace) mg/dL Urine Glucose (UA) (Negative) mg/dL Urine Ketones (Negative) mg/dL Urine Blood (Negative) Urine Nitrite (Negative) Ur Leukocyte Esterase (Negative) Urine RBC (0-2) /HPF Urine WBC (0-5) /HPF Ur Squamous Epith Cells (0-2) /HPF Urine Bacteria (None Seen) Hyaline Casts (0-2) /LPF Respiratory Panel Keen Adenovirus (Rapid PCR) (Not Detect.) B.pert (TEM-PCR) (Not Detect.) B.parapertussis DNA PCR (Not Detect.) C. pneumoniae DNA (PCR) (Not Detect.) Coronavirus OC43 (PCR) (Not Detect.) Coronavirus HKU1 (PCR) (Not Detect.) Coronavirus 229E (PCR) (Not Detect.) COVID-19 (TARA) (Negative) COVID-19 Clin Com Coronavirus NL63 (PCR) (Not Detect.) Human Metapneumovir PCR (Not Detect.) Influenza Type A (MAKSIM) (Negative) Influenza A (RT-PCR) (Not Detect.) Influenza A (H1) PCR (Not Detect.) Influ A (H1/09) PCR (Not Detect.) Influenza A (H3) PCR (Not Detect.) Influenza Type A (PCR) (Negative) Influenza Type B (MAKSIM) (Negative) Influenza B (RT-PCR) (Not Detect.) Influenza Type B (PCR) (Negative) Influenza A & B Note M. pneumoniae (PCR) (Not Detect.) Parainfluenza 1 (PCR) (Not Detect.) Parainfluenza 2 (PCR) (Not Detect.) Parainfluenza 3 (PCR) (Not Detect.) Parainfluenza 4 (PCR) (Not Detect.) RSV (PCR) (Not Detect.) RSV RNA Qual (PCR) (Negative) Entero/Rhino (PCR) (Not Detect.) SARS-CoV-2 RNA (RT-PCR) (Negative) 03/27/25 03/27/25 03/27/25 Range/Units 13:01 13:02 13:07 WBC (4.8-10.8) X10*3/uL RBC (4.60-5.80) X10*6/uL Hgb (14.0-18.0) g/dl Hct (42.0-52.0) % MCV (80.0-98.0) fL MCH (27.0-33.0) pg MCHC (31.0-36.0) g/dl RDW (11.0-16.0) % Plt Count (160-400) X10*3/uL MPV (9.4-12.4) fL Immature Gran % (Auto) (0.0-0.4) % Neut % (Auto) (45-73) % Lymph % (Auto) (20-40) % Door % (Auto) (2-11) % Eos % (Auto) (0-4) % Baso % (Auto) (0-2) % Lymph # (Auto) (1.2-4.9) X10*3/uL Door # (Auto) (0.1-1.2) X10*3/uL Eos # (Auto) (0.0-0.4) X10*3/uL Baso # (Auto) (0.0-0.2) X10*3/uL Abs Immat Gran (auto) (0.00-0.03) X10*3/uL Absolute Neuts (auto) (2.0-8.3) x10*3/uL Absolute Nucleated RBC (0.0-0.012) X10*3/uL Nucleated RBC % (auto) (0.0-0.2) /100WBC Hold Purple Top PT 13.0 H (10.9-12.4) SEC INR 1.1 (0.9-1.1) O2 Saturation 92.0 % ABG pH at Pt Temp 7.41 (7.35-7.45) ABG pCO2 at Pt Temp 28 L (32-45) mmHg ABG pO2 at Pt Temp 66 L (83-108) mmHg ABG HCO3 18 L (22-26) mmol/L ABG Base Excess (Actual) -4.5 mmol/L Sodium (135-145) mmol/L Potassium (3.3-5.1) mmol/L Chloride (96-108) mmol/L Carbon Dioxide (22-29) mmol/L Anion Gap (12-20) BUN (9-16) mg/dL Creatinine (0.5-1.4) mg/dL Estim Creat Clear Calc Estimated GFR Random Glucose (60-115) mg/dL Lactic Acid (0.5-2.0) mmol/L Calcium (8.4-10.2) mg/dL Total Bilirubin (0.0-1.0) mg/dL Direct Bilirubin (0.0-0.5) mg/dL AST (5-37) U/L ALT (0-40) U/L Alkaline Phosphatase (39-117) U/L Total Creatine Kinase (38-174) U/L Troponin I High Sens (<3.5-35.0) ng/L NT-Pro-B Natriuret Pep (<300) pg/mL Total Protein (6.5-8.0) g/dL Albumin (3.5-5.0) g/dL Procalcitonin ng/mL Urine Color Urine Appearance Urine pH (5.0-9.0) Ur Specific Sharon (1.005-1.025) Urine Protein (Neg-Trace) mg/dL Urine Glucose (UA) (Negative) mg/dL Urine Ketones (Negative) mg/dL Urine Blood (Negative) Urine Nitrite (Negative) Ur Leukocyte Esterase (Negative) Urine RBC (0-2) /HPF Urine WBC (0-5) /HPF Ur Squamous Epith Cells (0-2) /HPF Urine Bacteria (None Seen) Hyaline Casts (0-2) /LPF Respiratory Panel Keen Adenovirus (Rapid PCR) (Not Detect.) B.pert (TEM-PCR) (Not Detect.) B.parapertussis DNA PCR (Not Detect.) C. pneumoniae DNA (PCR) (Not Detect.) Coronavirus OC43 (PCR) (Not Detect.) Coronavirus HKU1 (PCR) (Not Detect.) Coronavirus 229E (PCR) (Not Detect.) COVID-19 (TARA) Negative (Negative) COVID-19 Clin Com See Note Coronavirus NL63 (PCR) (Not Detect.) Human Metapneumovir PCR (Not Detect.) Influenza Type A (MAKSIM) Negative (Negative) Influenza A (RT-PCR) (Not Detect.) Influenza A (H1) PCR (Not Detect.) Influ A (H1/09) PCR (Not Detect.) Influenza A (H3) PCR (Not Detect.) Influenza Type A (PCR) NEGATIVE (Negative) Influenza Type B (MAKSIM) Negative (Negative) Influenza B (RT-PCR) (Not Detect.) Influenza Type B (PCR) NEGATIVE (Negative) Influenza A & B Note See Note M. pneumoniae (PCR) (Not Detect.) Parainfluenza 1 (PCR) (Not Detect.) Parainfluenza 2 (PCR) (Not Detect.) Parainfluenza 3 (PCR) (Not Detect.) Parainfluenza 4 (PCR) (Not Detect.) RSV (PCR) (Not Detect.) RSV RNA Qual (PCR) NEGATIVE (Negative) Entero/Rhino (PCR) (Not Detect.) SARS-CoV-2 RNA (RT-PCR) NEGATIVE (Negative) 03/27/25 Range/Units 13:18 WBC (4.8-10.8) X10*3/uL RBC (4.60-5.80) X10*6/uL Hgb (14.0-18.0) g/dl Hct (42.0-52.0) % MCV (80.0-98.0) fL MCH (27.0-33.0) pg MCHC (31.0-36.0) g/dl RDW (11.0-16.0) % Plt Count (160-400) X10*3/uL MPV (9.4-12.4) fL Immature Gran % (Auto) (0.0-0.4) % Neut % (Auto) (45-73) % Lymph % (Auto) (20-40) % Door % (Auto) (2-11) % Eos % (Auto) (0-4) % Baso % (Auto) (0-2) % Lymph # (Auto) (1.2-4.9) X10*3/uL Door # (Auto) (0.1-1.2) X10*3/uL Eos # (Auto) (0.0-0.4) X10*3/uL Baso # (Auto) (0.0-0.2) X10*3/uL Abs Immat Gran (auto) (0.00-0.03) X10*3/uL Absolute Neuts (auto) (2.0-8.3) x10*3/uL Absolute Nucleated RBC (0.0-0.012) X10*3/uL Nucleated RBC % (auto) (0.0-0.2) /100WBC Hold Purple Top PT (10.9-12.4) SEC INR (0.9-1.1) O2 Saturation % ABG pH at Pt Temp (7.35-7.45) ABG pCO2 at Pt Temp (32-45) mmHg ABG pO2 at Pt Temp (83-108) mmHg ABG HCO3 (22-26) mmol/L ABG Base Excess (Actual) mmol/L Sodium (135-145) mmol/L Potassium (3.3-5.1) mmol/L Chloride (96-108) mmol/L Carbon Dioxide (22-29) mmol/L Anion Gap (12-20) BUN (9-16) mg/dL Creatinine (0.5-1.4) mg/dL Estim Creat Clear Calc Estimated GFR Random Glucose (60-115) mg/dL Lactic Acid (0.5-2.0) mmol/L Calcium (8.4-10.2) mg/dL Total Bilirubin (0.0-1.0) mg/dL Direct Bilirubin (0.0-0.5) mg/dL AST (5-37) U/L ALT (0-40) U/L Alkaline Phosphatase (39-117) U/L Total Creatine Kinase (38-174) U/L Troponin I High Sens (<3.5-35.0) ng/L NT-Pro-B Natriuret Pep (<300) pg/mL Total Protein (6.5-8.0) g/dL Albumin (3.5-5.0) g/dL Procalcitonin ng/mL Urine Color Dark Yellow Urine Appearance Cloudy Urine pH 5.0 (5.0-9.0) Ur Specific Sharon 1.025 (1.005-1.025) Urine Protein 100 (2+) H (Neg-Trace) mg/dL Urine Glucose (UA) Negative (Negative) mg/dL Urine Ketones Trace (Negative) mg/dL Urine Blood Moderate (2+) H (Negative) Urine Nitrite Negative (Negative) Ur Leukocyte Esterase Small (1+) H (Negative) Urine RBC 0-2 (0-2) /HPF Urine WBC 6-10 (0-5) /HPF Ur Squamous Epith Cells 6-10 (0-2) /HPF Urine Bacteria Trace (None Seen) Hyaline Casts 0-2 (0-2) /LPF Respiratory Panel Keen See Note Adenovirus (Rapid PCR) Not Detected (Not Detect.) B.pert (TEM-PCR) Not Detected (Not Detect.) B.parapertussis DNA PCR Not Detected (Not Detect.) C. pneumoniae DNA (PCR) Not Detected (Not Detect.) Coronavirus OC43 (PCR) Not Detected (Not Detect.) Coronavirus HKU1 (PCR) Not Detected (Not Detect.) Coronavirus 229E (PCR) Not Detected (Not Detect.) COVID-19 (TARA) (Negative) COVID-19 Clin Com Coronavirus NL63 (PCR) Not Detected (Not Detect.) Human Metapneumovir PCR Not Detected (Not Detect.) Influenza Type A (MAKSIM) (Negative) Influenza A (RT-PCR) Not Detected (Not Detect.) Influenza A (H1) PCR Not Detected (Not Detect.) Influ A (H1/09) PCR Not Detected (Not Detect.) Influenza A (H3) PCR Not Detected (Not Detect.) Influenza Type A (PCR) (Negative) Influenza Type B (MAKSIM) (Negative) Influenza B (RT-PCR) Not Detected (Not Detect.) Influenza Type B (PCR) (Negative) Influenza A & B Note M. pneumoniae (PCR) Not Detected (Not Detect.) Parainfluenza 1 (PCR) Not Detected (Not Detect.) Parainfluenza 2 (PCR) Not Detected (Not Detect.) Parainfluenza 3 (PCR) Not Detected (Not Detect.) Parainfluenza 4 (PCR) Not Detected (Not Detect.) RSV (PCR) Not Detected (Not Detect.) RSV RNA Qual (PCR) (Negative) Entero/Rhino (PCR) Not Detected (Not Detect.) SARS-CoV-2 RNA (RT-PCR) Not Detected (Negative) Independent Interpretation I performed an independent interpretation of an: EKG (My interpretation of patient's EKG showed a paced rhythm heart rate is 90) and Plain X-Ray Radiology Impression Discussion of test interpretation with radiology: I have reviewed the radiologist's reading. External Record Review External record reviewed: Inpatient record and Prior outpatient labs Chronic Conditions Patient?s care impacted by: Hypertension Congestive heart failure, dementia Social Determinants Patient?s care significantly limited by Social Determinants of Health including: Problems related to primary support group Critical Care Time Critical Care Time Critical Care Time: Yes Total Critical Care Time: 90 Attestation: I have personally provided 90 minutes of critical care time exclusive of time spent on separately billable procedures. ?Time includes review of lab data, radiology results, discussion with consultants, and monitoring for potential decompensation. ?Interventions were performed as documented above Discharge Plan Discharge Clinical Impression: Pneumonia Qualifiers: Pneumonia type: due to unspecified organism Laterality: right Lung location: middle lobe of lung Qualified Code(s): J18.9 - Pneumonia, unspecified organism Patient Disposition: Admitted As Inpatient
[2025-03-27 13:13] LABS: ABG HCO3 18 mmol/L (22-26); ABG O2 % Saturation 92.0 %
[2025-03-27 13:13] LABS: INTERNATIONAL NORM RATIO 1.1 (0.9-1.1); Prothrombin Time 13.0 SEC (10.9-12.4)
--- NOTE | 2025-03-27 13:20 | PC.NURSE ---
RT: HFNC 55L 65%
[2025-03-27 13:24] LABS: Alanine Aminotransferase 51 U/L (0-40); Albumin Level 4.3 g/dL (3.5-5.0); Alkaline Phosphatase 99 U/L (39-117); Anion Gap 16 (12-20); Aspartate Amino Transferase 69 U/L (5-37); Blood Urea Nitrogen 23 mg/dL (9-16); Calcium 8.9 mg/dL (8.4-10.2); Carbon Dioxide 19 mmol/L (22-29); Chloride 110 mmol/L (96-108); Creatinine Clr Calc Pharmacy 25.2; Estimated Glomerular Filt Rate 28; Potassium 4.2 mmol/L (3.3-5.1); Sodium 141 mmol/L (135-145); Total Protein 6.9 g/dL (6.5-8.0)
[2025-03-27 13:25] LABS: Appearance Urine Cloudy; Glucose Urine UA Negative (Negative); PH 5.0 (5.0-9.0); Specific Gravity - Urine 1.025 (1.005-1.025); UMIC TRIGGER UACC YES
[2025-03-27 13:26] LABS: COVID-19 Test Negative (Negative); IDNOW Serial# 6674DD1D
[2025-03-27 13:30] LABS: IDNOW Serial# 08D9AD1C; Influenza B2 Negative (Negative)
[2025-03-27 13:31] LABS: NT Pro B Type Natriuretic Pept 3094.8 pg/mL (<300); Troponin-I High Sensitivity 37.9 ng/L (<3.5-35.0)
[2025-03-27 13:35] LABS: UACC Culture Trigger YES
[2025-03-27 13:47] LABS: ABG Refer to POC result
[2025-03-27 13:49] LABS: Hematocrit 38.3 % (42.0-52.0); Hemoglobin 12.5 g/dl (14.0-18.0); Imm Gran Abs Auto 0.03 X10*3/uL (0.00-0.03); Imm Gran Pct Auto 0.5 % (0.0-0.4); Lymphocytes Absolute Auto 0.4 X10*3/uL (1.2-4.9); Mean Corpuscular HGB Conc 32.6 g/dl (31.0-36.0); Mean Corpuscular Hemoglobin 29.5 pg (27.0-33.0); Mean Corpuscular Volume 90.3 fL (80.0-98.0); NRBC Abs Auto 0.000 X10*3/uL (0.0-0.012); NRBC Pct Auto 0.0 /100WBC (0.0-0.2); Platelet Count 101 X10*3/uL (160-400); Red Blood Count 4.24 X10*6/uL (4.60-5.80); White Blood Count 5.8 X10*3/uL (4.8-10.8)
[2025-03-27 13:50] LABS: Resp Syncy Virus RNA Qual PCR NEGATIVE (Negative); SARS COV2 PCR INHOUSE NEGATIVE (Negative)
--- NOTE | 2025-03-27 13:59 | PC.NURSE ---
[facility] report from EMS is that nursing staff went to give pt morning meds. Pt was complaining of ABD pain, N/V, had fever. Was given rectal supp [facility] T[facility]enol at 11:11A [facility]. Pt then progressed to chills, N/V, SOB, EMS was called. Per EMS facility reports pt has hx of aspiration PNA. EMS found pt in 70s on RA SPO2. Placed on NRB, IV in 18G in left hand. Sepsis alert here. Rectal 104.5F. Pt confused, disoriented. Pale and hot to the touch. Pt denying pain. No active vomiting. Pt has pacemaker- interrogated by . BP normotensive. SPO2 81% RA here. Placed on HFNC 55L by RT with improvements to >90%. IV placed right upper arm. Meds per JUL. Temp sensing farley placed with immediate output, clear and yellow. Cooling blanket in place.
--- OUTSIDE RECORDS SUMMARY | 2025-03-27 14:15 | XMS_ITS | Encounter Summary ---
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
--- OUTSIDE RECORDS SUMMARY | 2025-03-27 14:15 | XMS_ITS | Encounter Summary ---
Author Organization [facility] Address [address] [facility] [address] [place] [address] Care Team Providers Care Director Non Profit Name Role Phone Unavailable Primary Care Provider Unavailabl e Encounter Details Date Type Department Care Team (Late st Contact Info) Description 06/20/2023 Abstract [facility] [address] [place] [address] Robin Pastor, ANEESH [address] [place] [address] Social History Tobacco Use Types Packs/Day Years [...]
--- OUTSIDE RECORDS SUMMARY | 2025-03-27 14:15 | XMS_ITS | Encounter Summary ---
Author Organization [employer] Address [address] [facility] [address] [place] [address] Care Team Providers Care Tobacco Acreage Measurer Name Role Phone Unavailable Primary Care Provider Unavailabl e Encounter Details Date Type Department Care Team (Late st Contact Info) Description 05/03/2023 Abstract [facility] [address] [place] [address] Robin Pastor, ANEESH [address] [place] [address] Social History Tobacco Use Types Packs/Day Years [...]
--- OUTSIDE RECORDS SUMMARY | 2025-03-27 14:15 | XMS_ITS | Encounter Summary ---
Author Organization [facility] Address [address] [place] [address] Care Team Providers Care Tower Switch Operator Name Role Phone Pcp, No Primary Care Provider Unavailabl e Encounter Details Date Type Department Care Team (Latest Contact Info) Description 09/21/2024 Hospital Encounter Social History Tobacco Use Types Packs/Day Years Used Date Smoking Tobacco: Never Smokeless Tobacco: Never Alcohol Use Standard Drinks/Week Comments Not Currently 0 (1 standard drink = 0.6 oz pur e alcohol) [facility] Utilities Answer Date Recorded In the past 12 months has e [employer], gas, oil, or water [employer] threatened to shut off services in your [...] time in the past 12 m [facility], were you homeless or living in a long term (including now)? Patient unable to answer 09/22/2024 Sex and Gender Information Value Date Recorded Sex Assigned at Male 09/22/2024 1:25 AM EDT Legal Sex Male 6:56 PM EST Gender Identity Male 09/22/2024 1:25 AM EDT Sexual Orientation Other 09/22/2024 1: 25 AM EDT documented as of this encounter Functional Status * AUDIT-C Score Answer Date of Assessment Author 0 [...] on filedocumented in this encounter Care Teams Tower Switch Operator Relationship Specialty Start Date End Date Pcp, No PCP - General General Medicine 6/8/25 documented as of this encounter
--- OUTSIDE RECORDS SUMMARY | 2025-03-27 14:15 | XMS_ITS | Clinical Summary ---
Author Organization [facility] Address [address] [place] [address] Care Team Providers Care Blade Worker Name Role Phone Pcp, No Primary Care Provider Unavailabl e Allergies Active Allergy Reactions Criticality Noted Date Comments Baclofen Unknown/Patient and Family Unable to Define Medium 10/26/2020 Cephalexin Rash/Dermatitis Low 09/28/2024 Lisinopril Unknown/Patient and Family Unable to Define Medium 10/26/2020 Shellfish Protein-Containing Drug Products Unknown/Patient and Family Unable to Define Medium 10/03/2022 [...] any time in the past 12 m [facility], were you homeless or living in a mcfp (including now)? Patient unable to answer 09/22/2024 [...] Vaccine (1 of 2) 09/28/1993 RSV Vaccine 50 years and old er and Patients (1 - 1-dose 75+ series) 09/28/2018 Influenza Vaccine 12/25/2024 02/12/2023 COVID-19 Vaccine (1 - 2023-2 5 season) 2025 Advance Care Planning Completed 2024 Hepatitis B Vaccines Aged Out No long er eligible based on patient's age to complete this topic Medical Devices Implanted Type Area Business Project Analyst Device Identifier Shelf Expiration Date Model / Serial / Lot [id number] Lead Pacing 58cm 6fr Hlx Ecrdm Bipolar Actfx Xtd Is 1 Tndrl - [id number] Implanted:Qty : 1 on 09/24/2024 by Lonnie Mehta MD at [facility] Lead N/A: Heart [employer] AN A[employer]OT [id number] 06/26/20272087TC/58 / [id number] / Lead Pacing 52cm 6fr Hlx Ecrdm Bipolar Actfx Is-1 Conn Xtd - [id number] Implanted:Qty : 1 on 09/24/2024 by Lonnie Mehta MD at [facility] Lead N/A: Heart [employer] [id number] 06/26/2027 / [id number] / [id number] Pacemaker Cardiac Thk6mm Assurity Mri 2 Chamber Pls Gntr - [id number] Implanted:Qty : 1 on 09/24/2024 by Lonnie Mehta MD at [facility] Pacemaker Left: Chest Wall [employer] [id number] 01/24/2026 [id number] / [id number] / [place] [id number] Advance Directives Documents on File Type Date Recorded Patient Optical Lathe Operator Expl anation Advance Directive-Scan 2024 [...] Decision Thoroughly Discussed with: Legally Auth orized Optical Lathe Operator Name of Legally Authorized Optical Lathe Operator: Yoon soriano * DNR Date Activated Date Inactivated Comments 09/22/2024 3:16 AM 09/24/2024 11:27 AM Question Answer Comments Decision thoroughly discussed with: Sherly ent arrived with valid State [place] DNR Transfer form Care Teams Blade Worker Relationship Specialty Start Date End Date Pcp, No PCP - General General Medicine 11/01/24
[2025-03-27 14:16] LABS: Chlamydia pneumoniae PCR Not Detected (Not Detect.); Coronavirus 229E PCR Not Detected (Not Detect.); Coronavirus HKU1 PCR Not Detected (Not Detect.); Coronavirus NL63 PCR Not Detected (Not Detect.); Coronavirus OC43 PCR Not Detected (Not Detect.); RSV PCR Not Detected (Not Detect.); Rhino/Enterovirus PCR Not Detected (Not Detect.)
--- OUTSIDE RECORDS SUMMARY | 2025-03-27 14:16 | XMS_ITS | Clinical Summary ---
Author Organization [facility] Address [address] [place] [address] Care Team Providers Care Physician Practice Administrator Name Role Phone Unavailable Primary Care Provider [...]
--- OUTSIDE RECORDS SUMMARY | 2025-03-27 14:16 | XMS_ITS | Patient Health Record ---
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 Problem Gastroesophageal reflux disease (disorder) (731556869) Chronic GERD (K21.9) Active confirmed Vital Signs Temperature 97.5 degrees Fahrenheit 02/16/2025 Blood pressure diastolic 01 mm Hg 02/16/2025 Height 5Ft 9 In in 02/16/2025 Blood pressure systolic 001 mm Hg 02/16/2025 Weight 168.0 lbs 02/16/2025 BMI 24.81 kg/m2 02/16/2025 Encounters Encounter Location Date Provider Diagnosis [facility] [address] [place] [address] 02/16/2025 Lc Avalos Chronic GERD K21.9 ; Hoffman esophagus K22.70 and Gallstones K80.20 [facility] [address] [place] [address] 02/10/2025 Lc Avalos Assessments Encounter Date Diagnosis [...] for allowing me to have participated in [facility]. Please do not hesitate to contact [...] for allowing me to have participated in [facility]. Please do not hesitate to contact me if I can be of any further assistance in the future. 02/16/2025 Gallstones (ICD-10 - K80.20) You should be referred back to the surgeon at [facility] if you develop any right upper abdominal [...] [place] [address] [place] [address] [phone] [id number] MARIANNE DAVILA Self - patient is the insured Medical (General) History Medical History History ICD Code Coronary artery disease with previous PA GERD was reported Hoffman's esophagus, although I [...]
--- OUTSIDE RECORDS SUMMARY | 2025-03-27 14:16 | XMS_ITS | Encounter Summary ---
Author Organization [employer] Address [address] [place] [address] Care Team Providers Care Silverer Name Role Phone Unavailable Primary Care Provider Unavailabl e Encounter Details Date Type Department Care Team (Latest Contact Info) Description 01/03/2022 Abstract [facility] CONVERSIONS Dental, Provider, DDS Social History [...]
[2025-03-27 14:38] LABS: Influenza A H1 PCR Not Detected (Not Detect.); Influenza A H1-2009 PCR Not Detected (Not Detect.); Influenza A H3 PCR Not Detected (Not Detect.); SARS-CoV-2 PCR Not Detected (Not Detect.)
--- NOTE | 2025-03-27 16:18 | PM.IMHP ---
History of Present Illness Date of Service: 03/27/25 Attending physician on admission: Claudia Das Chief Complaint: fever This is an 79-year-old male with a history of dementia, sent [facility]. On arrival patient had high fever of 104.5, was tachycardic, tachypneic as well as hypoxic. His oxygen saturation was 81% on room air. He was placed on high-flow oxygen and his oxygen saturation improved to the low 90s. He received IV antibiotics, Tylenol suppository and IV fluid and his fever slowly improved. Workup was significant for bibasilar infiltrates on CT chest. Due to underlying dementia patient is unable to provide any significant medical history. Review of Systems Review of Systems: Unable to obtain review of systems due to dementia, altered mental status [facility] Medical History Alzheimer disease Cerebral atrophy Intracranial atherosclerosis Carotid stenosis Hypertension TIA (transient ischemic attack) CKD (chronic kidney disease) New onset of congestive heart failure Diverticulitis Dementia Hoffman esophagus Malignant neoplasm of prostate Cirrhosis of liver Family History Father CAD (coronary artery disease) Surgical History H/O radical prostatectomy Social History Household Members: None Housing: House Do you presently have visiting nurse or other home services: No Alcohol intake: former Patient Tobacco Use Status: Never used Tobacco Advance Directives: Yes Advance Directives on File: Yes Advance Directives Date on File: 12/22/21 service: No Current occupational status: retired Meds Allergies Allergy/AdvReac Type Severity Reaction Status Date / Time lisinopril (LISINOPRIL) Allergy Mild UNKNOWN Verified 12/12/24 18:57 baclofen (BACLOFEN) Allergy Unknown UNKNOWN Verified 12/12/24 18:57 shellfish derived (SHELLFISH Allergy Unknown UNKNOWN Verified 12/12/24 18:57 DERIVED) cephalexin (From Keflex) Allergy Unknown Verified 03/27/25 12:48 Home Medications ?Medication ?Instructions ?Recorded ?Confirmed ?Last Taken ?Type allopurinol 100 mg tablet 50 mg PO DAILY 12/18/21 03/27/25 03/27/25 History cholecalciferol (vitamin D3) 50 50 mcg PO DAILY 12/18/21 03/27/25 03/27/25 History mcg (2,000 unit) tablet loratadine 10 mg tablet 10 mg PO BEDTIME 12/18/21 03/27/25 12/17/21 History pantoprazole 40 mg tablet,delayed 40 mg PO BID@0630,1630 06/17/23 03/27/25 Unknown History release mirtazapine 30 mg tablet 30 mg PO BEDTIME 03/02/24 03/27/25 Unknown History multivitamin 1 tab PO DAILY 05/06/24 03/27/25 Unknown History thiamine HCl (vitamin B1) 100 mg 100 mg PO DAILY 05/06/24 03/27/25 Unknown History tablet acetaminophen 325 mg tablet 650 mg PO BID 05/28/24 03/27/25 Unknown History aluminum-mag hydroxide-simethicone 30 ml PO TID PRN Heartburn 05/28/24 03/27/25 Unknown History 200 mg-200 mg-20 mg/5 mL oral susp (Mag-Al Plus) calcium carbonate 500 mg PO Q4H PRN Heartburn 05/28/24 03/27/25 Unknown History famotidine 20 mg tablet 20 mg PO DAILY PRN Heartburn 05/28/24 03/27/25 Unknown History lactase 3,000 unit tablet 3,000 unit PO Q1H PRN Lactose 05/28/24 03/27/25 Unknown History Intolerance ondansetron 4 mg disintegrating 4 mg PO Q6H PRN Nausea And Vomiting 05/28/24 03/27/25 Unknown History tablet polyethylene glycol 3350 17 gram 17 g PO DAILY PRN Constipation 05/28/24 03/27/25 Unknown History oral powder packet sertraline 50 mg tablet 50 mg PO DAILY 07/29/24 03/27/25 Unknown History tamsulosin 0.4 mg capsule (Flomax) 0.4 mg PO BEDTIME 07/29/24 03/27/25 Unknown History amiodarone 200 mg tablet 200 mg PO DAILY 10/23/24 03/27/25 03/27/25 History acetaminophen 325 mg tablet 650 mg PO Q4H PRN Pain (Scale 12/13/24 03/27/25 Unknown History Score 1-3) ferrous sulfate 325 mg (65 mg 325 mg PO DAILY 12/13/24 03/27/25 Unknown History iron) tablet metoprolol succinate 25 mg 25 mg PO DAILY 12/13/24 03/27/25 Unknown History tablet,extended release 24 hr acetaminophen 650 mg rectal 650 mg IN Q6H PRN Fever Or Pain 03/27/25 03/27/25 03/27/25 11:11 History suppository ipratropium 0.5 mg-albuterol 3 mg 3 ml inhalation Q4H PRN Shortness 03/27/25 03/27/25 Unknown History (2.5 mg base)/3 mL nebulization Of Breath Or Wheezing soln Physical Exam Vital Signs and Narrative: Vital Signs: Last Vital Signs Temp 97.9 F 03/27/25 15:48 Pulse 69 03/27/25 15:48 Resp 16 03/27/25 15:48 BP 120/66 03/27/25 15:48 Pulse Ox 94 03/27/25 15:48 O2 Del Method High Flow Nasal C annula 03/27/25 15:48 O2 Flow Rate 55 03/27/25 15:48 FiO2 65 03/27/25 14:17 BMI result Body Mass Index 24.3 Const: Other: ill appearing, awake but sleepy; able to follow simple commands to move arms and legs General: awake Nutritional Appearance: average body habitus Resp: Effort & Inspection: no respiratory distress and no use of accessory muscles Cardio: Rate: regular rate GI: Inspection: No distended Palpation (GI): Soft to palpation Neuro: Other: grossly nonfocal General: moves all extremities Results Labs 03/27/25 12:59 03/27/25 12:59 Labs: Laboratory Results - last 24 hr 03/27/25 03/27/25 03/27/25 12:57 12:59 12:59 MCV 90.3 MCH 29.5 MCHC 32.6 RDW 15.0 Plt Count 101 L D MPV 10.2 Immature Gran % (Auto) 0.5 H Neut % (Auto) 85.2 H Lymph % (Auto) 7.4 L [place] % (Auto) 6.4 Eos % (Auto) 0.2 Baso % (Auto) 0.3 Lymph # (Auto) 0.4 L [place] # (Auto) 0.4 Eos # (Auto) 0.0 Baso # (Auto) 0.0 Abs Immat Gran (auto) 0.03 Absolute Neuts (auto) 5.0 Absolute Nucleated RBC 0.000 Nucleated RBC % (auto) 0.0 Hold Purple Top SEE NOTE SEE NOTE PT INR O2 Saturation ABG pH at Pt Temp ABG pCO2 at Pt Temp ABG pO2 at Pt Temp ABG HCO3 ABG Base Excess (Actual) Anion Gap 16 Estim Creat Clear Calc 25.2 Estimated GFR 28 Random Glucose 132 H Lactic Acid 1.6 Calcium 8.9 Total Bilirubin 1.3 H Direct Bilirubin 0.7 H AST 69 H ALT 51 H Alkaline Phosphatase 99 Total Creatine Kinase 103 Troponin I High Sens 37.9 H D NT-Pro-B Natriuret Pep 3094.8 H Total Protein 6.9 Albumin 4.3 Urine Color Urine Appearance Urine pH Ur Specific Ferguson Urine Protein Urine Glucose (UA) Urine Ketones Urine Blood Urine Nitrite Ur Leukocyte Esterase Urine RBC Urine WBC Ur Squamous Epith Cells Urine Bacteria Hyaline Casts Respiratory Panel Keen Adenovirus (Rapid PCR) B.pert (TEM-PCR) B.parapertussis DNA PCR C. pneumoniae DNA (PCR) Coronavirus OC43 (PCR) Coronavirus HKU1 (PCR) Coronavirus 229E (PCR) COVID-19 (TARA) COVID-19 Clin Com Coronavirus NL63 (PCR) Human Metapneumovir PCR Influenza Type A (MAKSIM) Influenza A (RT-PCR) Influenza A (H1) PCR Influ A (H1/09) PCR Influenza A (H3) PCR Influenza Type A (PCR) Influenza Type B (MAKSIM) Influenza B (RT-PCR) Influenza Type B (PCR) Influenza A & B Note M. pneumoniae (PCR) Parainfluenza 1 (PCR) Parainfluenza 2 (PCR) Parainfluenza 3 (PCR) Parainfluenza 4 (PCR) RSV (PCR) RSV RNA Qual (PCR) Entero/Rhino (PCR) SARS-CoV-2 RNA (RT-PCR) 03/27/25 03/27/25 03/27/25 13:01 13:02 13:07 MCV MCH MCHC RDW Plt Count MPV Immature Gran % (Auto) Neut % (Auto) Lymph % (Auto) [place] % (Auto) Eos % (Auto) Baso % (Auto) Lymph # (Auto) [place] # (Auto) Eos # (Auto) Baso # (Auto) Abs Immat Gran (auto) Absolute Neuts (auto) Absolute Nucleated RBC Nucleated RBC % (auto) Hold Purple Top PT 13.0 H INR 1.1 O2 Saturation 92.0 ABG pH at Pt Temp 7.41 ABG pCO2 at Pt Temp 28 L ABG pO2 at Pt Temp 66 L ABG HCO3 18 L ABG Base Excess (Actual) -4.5 Anion Gap Estim Creat Clear Calc Estimated GFR Random Glucose Lactic Acid Calcium Total Bilirubin Direct Bilirubin AST ALT Alkaline Phosphatase Total Creatine Kinase Troponin I High Sens NT-Pro-B Natriuret Pep Total Protein Albumin Urine Color Urine Appearance Urine pH Ur Specific Ferguson Urine Protein Urine Glucose (UA) Urine Ketones Urine Blood Urine Nitrite Ur Leukocyte Esterase Urine RBC Urine WBC Ur Squamous Epith Cells Urine Bacteria Hyaline Casts Respiratory Panel Keen Adenovirus (Rapid PCR) B.pert (TEM-PCR) B.parapertussis DNA PCR C. pneumoniae DNA (PCR) Coronavirus OC43 (PCR) Coronavirus HKU1 (PCR) Coronavirus 229E (PCR) COVID-19 (TARA) Negative COVID-19 Clin Com See Note Coronavirus NL63 (PCR) Human Metapneumovir PCR Influenza Type A (MAKSIM) Negative Influenza A (RT-PCR) Influenza A (H1) PCR Influ A (H1/09) PCR Influenza A (H3) PCR Influenza Type A (PCR) NEGATIVE Influenza Type B (MAKSIM) Negative Influenza B (RT-PCR) Influenza Type B (PCR) NEGATIVE Influenza A & B Note See Note M. pneumoniae (PCR) Parainfluenza 1 (PCR) Parainfluenza 2 (PCR) Parainfluenza 3 (PCR) Parainfluenza 4 (PCR) RSV (PCR) RSV RNA Qual (PCR) NEGATIVE Entero/Rhino (PCR) SARS-CoV-2 RNA (RT-PCR) NEGATIVE 03/27/25 13:18 MCV MCH MCHC RDW Plt Count MPV Immature Gran % (Auto) Neut % (Auto) Lymph % (Auto) [place] % (Auto) Eos % (Auto) Baso % (Auto) Lymph # (Auto) [place] # (Auto) Eos # (Auto) Baso # (Auto) Abs Immat Gran (auto) Absolute Neuts (auto) Absolute Nucleated RBC Nucleated RBC % (auto) Hold Purple Top PT INR O2 Saturation ABG pH at Pt Temp ABG pCO2 at Pt Temp ABG pO2 at Pt Temp ABG HCO3 ABG Base Excess (Actual) Anion Gap Estim Creat Clear Calc Estimated GFR Random Glucose Lactic Acid Calcium Total Bilirubin Direct Bilirubin AST ALT Alkaline Phosphatase Total Creatine Kinase Troponin I High Sens NT-Pro-B Natriuret Pep Total Protein Albumin Urine Color Dark Yellow Urine Appearance Cloudy Urine pH 5.0 Ur Specific Ferguson 1.025 Urine Protein 100 (2+) H Urine Glucose (UA) Negative Urine Ketones Trace Urine Blood Moderate (2+) H Urine Nitrite Negative Ur Leukocyte Esterase Small (1+) H Urine RBC 0-2 Urine WBC 6-10 Ur Squamous Epith Cells 6-10 Urine Bacteria Trace Hyaline Casts 0-2 Respiratory Panel Keen See Note Adenovirus (Rapid PCR) Not Detected B.pert (TEM-PCR) Not Detected B.parapertussis DNA PCR Not Detected C. pneumoniae DNA (PCR) Not Detected Coronavirus OC43 (PCR) Not Detected Coronavirus HKU1 (PCR) Not Detected Coronavirus 229E (PCR) Not Detected COVID-19 (TARA) COVID-19 Clin Com Coronavirus NL63 (PCR) Not Detected Human Metapneumovir PCR Not Detected Influenza Type A (MAKSIM) Influenza A (RT-PCR) Not Detected Influenza A (H1) PCR Not Detected Influ A (H1/09) PCR Not Detected Influenza A (H3) PCR Not Detected Influenza Type A (PCR) Influenza Type B (MAKSIM) Influenza B (RT-PCR) Not Detected Influenza Type B (PCR) Influenza A & B Note M. pneumoniae (PCR) Not Detected Parainfluenza 1 (PCR) Not Detected Parainfluenza 2 (PCR) Not Detected Parainfluenza 3 (PCR) Not Detected Parainfluenza 4 (PCR) Not Detected RSV (PCR) Not Detected RSV RNA Qual (PCR) Entero/Rhino (PCR) Not Detected SARS-CoV-2 RNA (RT-PCR) Not Detected Assessment and Plan (1) Pneumonia: Qualifiers: Laterality: right Lung location: middle lobe of lung Pneumonia type: due to unspecified organism Qualified Code(s): J18.9 - Pneumonia, unspecified organism Status: Acute Plan This is an 79-year-old male with history of HTN, HLD, CHF, CVA, heart block s/p PPM placement sent [facility] fever found to have pneumonia and respiratory failure Sepsis and Acute respiratory failure with hypoxia Due to pneumonia Possible aspiration IV abx with ceftriaxone, doxycycline full RPP negative check procalcitonin, legionella and strep pneumo urine antigens and MRSA nasal swab currently requiring high flow oxygen, wean as tolerated bedside swallow, depending on result may need full BOAT ENGINES INSTALLER evaluation aspiration precautions Colitis mild colitis on CT Ap now with diarrhea will check cdif and stool studies add flagyl HFrEF last echo ef 40% not on lasix pro-BNP elevated, will trial dose of IV lasix and assess for effect elevated LFTs trend in am, if remain elevated, further investigation may be warranted thrombocytopenia chronic follow CBC HTN continue norvasc, metoprolol gerd continue pantoprazole CKD3 near baseline h/o NSTEMI on BB, statin, plavix Alzheimer's dementia/mood continue mirtazapine, sertraline BPH continue flomax dvt ppx - heparin Patient will likely require 2 midnight stay in the hospital for management of acute respiratory failure and sepsis due to pneumonia requiring close monitoring of respiratory status, high-flow oxygen, IV antibiotics which can not be achieved in a less acute setting Quality Stroke Does the patient have a stroke diagnosis?: No VTE Prior VTE?: No VTE Risk Level:: Medical - moderate - high VTE Device Contraindication: N/A - Device Ordered VTE Drug Contraindication: Treatment Not Indicated
[2025-03-27 16:50] LABS: Procalcitonin 12.68 ng/mL
--- NOTE | 2025-03-27 17:14 | PHA.MEDREC ---
Pharmacy Consult ? Medication Reconciliation Pharmacy has completed the medication reconciliation. Used list from [facility] [place].
--- NOTE | 2025-03-27 17:22 | PC.NURSE ---
This RN did bedside swallow. Pt is confused at baseline but can follow my commands, able to sit up and manage his own saliva. Pt swallowed with no issues, no coughing or SOB noted. Pt able to clear airway on his own. Pass at this time.
--- NOTE | 2025-03-27 17:23 | PC.NURSE ---
Pt looks much more comfortable. No longer febrile. Cooling measures were stopped. Maintains on the HFNC. VSS
[2025-03-27] MEDS: Furosemide 20 MG/2 ML VIAL IVPUSH (18:37)
[2025-03-27] MEDS: metroNIDAZOLE/NS 500 MG/100 ML PIGGYBACK 100 MG IV (18:43)
--- NOTE | 2025-03-27 19:05 | PC.NURSE ---
This RN let provider know, unsure if pt would be able to eat or swallow pills effectively. Plan is NPO pending speech
--- NOTE | 2025-03-27 19:41 | PC.NURSE ---
assumed care of pt, respirations even and unlabored. Pt now NPO per provider. pt advised.
--- NOTE | 2025-03-27 20:05 | PC.NURSE ---
pt sleeping, aroused to sound of his name, pt respirations even and unlabored, highflow working as ordered, pt sp02 96% on highflow 50 LPM. pt denies pain at this time.
[2025-03-28] VITALS (29 sets, daily range): BP systolic 112–163; BP diastolic 47–89; PULSE 60–73; RESP 7–24; TEMP 35.9–39.2; O2SAT 90–99
[2025-03-28] MEDS: 0.9 % Sodium Chloride Flush 3 ML SYRINGE IVFLUSH ×4 (00:44→21:03)
[2025-03-28 00:51] LABS: MANUAL DIFF FLAG NO
[2025-03-28 00:52] LABS: Hematocrit 42.4 % (42.0-52.0); Hemoglobin 13.2 g/dl (14.0-18.0); Imm Gran Abs Auto 0.05 X10*3/uL (0.00-0.03); Imm Gran Pct Auto 0.4 % (0.0-0.4); Lymphocytes Absolute Auto 1.5 X10*3/uL (1.2-4.9); Mean Corpuscular HGB Conc 31.1 g/dl (31.0-36.0); Mean Corpuscular Hemoglobin 29.2 pg (27.0-33.0); Mean Corpuscular Volume 93.8 fL (80.0-98.0); NRBC Abs Auto 0.000 X10*3/uL (0.0-0.012); NRBC Pct Auto 0.0 /100WBC (0.0-0.2); Platelet Count 108 X10*3/uL (160-400); Red Blood Count 4.52 X10*6/uL (4.60-5.80); White Blood Count 11.4 X10*3/uL (4.8-10.8)
[2025-03-28 01:08] LABS: Alanine Aminotransferase 49 U/L (0-40); Albumin Level 4.4 g/dL (3.5-5.0); Alkaline Phosphatase 99 U/L (39-117); Anion Gap 20 (12-20); Aspartate Amino Transferase 61 U/L (5-37); Blood Urea Nitrogen 21 mg/dL (9-16); Calcium 8.6 mg/dL (8.4-10.2); Carbon Dioxide 18 mmol/L (22-29); Chloride 110 mmol/L (96-108); Creatinine Clr Calc Pharmacy 26.6; Estimated Glomerular Filt Rate 29; Lipase 9 U/L (8-78); Potassium 4.2 mmol/L (3.3-5.1); Sodium 144 mmol/L (135-145); Total Protein 7.1 g/dL (6.5-8.0)
--- NOTE | 2025-03-28 01:32 | P.EN_ITS ---
Event Note Date of Service: 03/28/25 Event Note: S/OPatient c/o RUQ pain and nausea. He does feel unwell. Rectal temp is >101. Other vital signs stable. Both sets of blood cultures positive for Gram- negative rods. Cardiopulmonary exam remarkable for bibasilar crackles without wheezing. Abstinence and right upper quadrant tenderness. LFTs elevated. Last stat remarkable for marked lactic acidosis of 5.5 . Pro BNP noted to be markedly elevated > 3000. Per chart review patient has a history of systolic CHF. He is currently on high-flow with adequate saturation. A: 1. Acute respiratory failure likely secondary to aspiration pneumonia with component of acute on chronic CHF associated with Gram-negative bacteremia. 2. RUQ pain, elevated LFTs, slightly improvement; suspecting this secondary to liver congestion due to CHF (TTE April 2024 -LVEF 40-45%). 3. Acute lactic acidosis due to Gram-negative bacteremia. Urine culture still pending. Plan/treatment: -Switch antibiotic therapy to Zosyn. -Continue aspiration precautions. -Solu-Medrol 125 mg IV (per nursing pt was wheezing). -Tylenol 1 g IV q.6 -Continue DuoNeb p.r.n.. -Lasix 40 mg IV stat then 20 mg IV b.i.d. -albumin 133 mL/hour. (pt has risk for TACO). n -Dilaudid 0.5 mg IV for pain and comfort -Continue high-flow -Check RUQ ultrasound in am. Time Spent With Patient Time: Total time managing care of this patient today ____ minutes.
[2025-03-28] MEDS: Albumin Human 25 % 100 ML 133.33 ML IV ×2 (01:40→03:06)
[2025-03-28] MEDS: Furosemide 40 MG/4 ML VIAL IVPUSH (01:56)
[2025-03-28 02:00] LABS: ABG HCO3 18 mmol/L (22-26); ABG O2 % Saturation 95.0 %
--- NOTE | 2025-03-28 02:35 | PC.RT ---
RT called to bedside initially for patient dropping saturations and Rn stated patient did vomit. RT increased oxygen on high flow to 90% 50L with 10L oxymask due to patient sleeping with mouth open. Stat ABG obtained showing hypoxia, started CPAP. Pt on continuous monitoring on CPAP of 5 100% O2 with SPO2 97%. Hospitalist overseeing patient did consult ICU MD to consult patient. RN will call RT if further interventions and/or if changes are needed.
[2025-03-28 02:50] LABS: Reflex Lactate? Lactic Acid Added
[2025-03-28 03:24] LABS: ~Lactic Acid-LAB USE ONLY 1.1 mmol/L (0.5-2.0)
--- NOTE | 2025-03-28 04:51 | PC.NURSE ---
Pt noted by this RN to have increased WOB, grunting with expiration and body tremors. Pt reports RUQ pain that is stabbing in nature. contacted via tiger text to request IV pain medication as pt is NPO pending swallow eval.Blood culture results reported via tiger text to be (+) gram negative rods. Body tremors observed to be increasing, pt wheezing with increased WOB, and pt now reporting nausea. SpO2 97% on High flow nasal canula, oral temp 98.7. Pt with 1 episode of small, yellow emesis. RT Rosalind and MD Joyce Colin called to bedside. IV solumedrol, pain medication, and nausea medication ordered and administered. Labs and CXR ordered and administered. Lactic acid critical result 5.5. 2 additional 20g IVs placed in L upper arm and L forearm Pt O2 demand increasing after this RN noted 88% spo2, high flow nasal canula titrated to 90% 50L with 10L oxymask d/t open mouth breathing with spo2 increased to 93%. Rectal temp taken, 102.6F. IV acetaminophen ordered and administered. Ice packs placed on pt groin and axilla. IVP lasix and IV albumin ordered and administered. IV zosyn ordered and administered. Pt noted to become more lethargic and diaphoretic, BP 88/48. BP improved after 1 bag 100mL albumin infused: 117/57. ABGs ordered and obtained, shows hypoxia PaO2 77. RT to bedside to place pt on CPAP 5 100%. MD Shade Colin to bedside with bonus clerk [employer] Shelley Epstein, pt RR on CPAP 8-12/min. ok for pt to remain on CPAP. Rectal temperature repeated at 99.2F. Lactic acid f/u 1.1. Plan to obtain TTE and abdominal US.
[2025-03-28 05:39] LABS: VBG HCO3 20 mmol/L (22-26); VBG O2 % Saturation 100.0 %
[2025-03-28 05:47] LABS: Venous Blood Gas Refer to POC result
[2025-03-28 05:53] LABS: Anion Gap 16 (12-20); Blood Urea Nitrogen 25 mg/dL (9-16); Calcium 8.3 mg/dL (8.4-10.2); Carbon Dioxide 19 mmol/L (22-29); Chloride 112 mmol/L (96-108); Creatinine Clr Calc Pharmacy 26.8; Estimated Glomerular Filt Rate 29; Magnesium 2.1 mg/dL (1.6-2.6); Potassium 4.6 mmol/L (3.3-5.1); Sodium 142 mmol/L (135-145)
--- NOTE | 2025-03-28 05:55 | PC.RT ---
RT calledto bedside and switched pt to Bipap due to patient keep alarming CPAP for low RR triggering the alarms. paged, stat VBG ordered, ICU contacted. Pt is tolerating NIV, mepilex remains on bridge of nose, O2 decreased based on recent VBG results. Pt on continuous monitoring on Bipap.
[2025-03-28 06:01] LABS: Glucose, Whole Blood 149 mg/dL (60-115)
[2025-03-28 06:02] LABS: Hematocrit 32.7 % (42.0-52.0); Hemoglobin 10.2 g/dl (14.0-18.0); Mean Corpuscular HGB Conc 31.2 g/dl (31.0-36.0); Mean Corpuscular Hemoglobin 29.3 pg (27.0-33.0); Mean Corpuscular Volume 94.0 fL (80.0-98.0); NRBC Abs Auto 0.000 X10*3/uL (0.0-0.012); NRBC Pct Auto 0.0 /100WBC (0.0-0.2); Red Blood Count 3.48 X10*6/uL (4.60-5.80); White Blood Count 6.4 X10*3/uL (4.8-10.8)
[2025-03-28 06:05] LABS: Platelet Count 79 X10*3/uL (160-400)
[2025-03-28 06:45] LABS: ABG Refer to POC result
[2025-03-28] MEDS: Furosemide 200 MG in 0.9 % Sodium Chloride 80 ML IVCONT (08:32)
--- NOTE | 2025-03-28 09:00 | PM.CCPN ---
Subjective Subjective Date of Service: 03/28/25 Interval History: transferred ICU 03/28 AM d/t acute hypoxic respiratory failure, likely multifactorial d/t pneumonia, CHF exacerbation Critical Care Time (minutes): 60 Physical Exam Vital Signs: Vital Signs: Last Vital Signs Temp 99.6 F 03/28/25 03:13 Pulse 60 03/28/25 03:13 Resp 15 03/28/25 05:50 BP 155/71 H 03/28/25 08:32 Pulse Ox 99 03/28/25 03:13 O2 Del Method CPAP 03/28/25 03:13 O2 Flow Rate 12 03/28/25 03:13 FiO2 100 03/28/25 03:13 BMI result Body Mass Index 25.5 Const: General: comfortable, no acute distress, well developed, alert, awake and Physically active Orientation/consciousness: oriented to person and oriented to place HEENT: Head: Yes normal to inspection, Yes normocephalic and Yes atraumatic Eyes: General: appearance normal, both eyes and all related structures Neck: Neck: Yes normal visual inspection, Yes full ROM, Yes no meningeal signs, Yes trachea midline and Yes supple Chest: Chest palpation & inspection: normal inspection of the chest Resp: Other: no appreciable overt rales, rhonchi, wheezing Effort & Inspection: normal respiratory effort Cardio: Rate: bradycardic Rhythm: abnormal rhythm GI: Inspection: Yes normal to inspection, No Abdominal wall edema and No distended Palpation (GI): Soft to palpation, not firm, nontender, no guarding and not rigid Skin: General skin exam: no rashes or lesions noted Neuro: General: oriented to person, oriented to place, tone normal, moves all extremities, no meningeal signs and no focal motor deficits Extrem: General: Yes normal to inspection, Yes full ROM, Yes capillary refill normal and Yes no clubbing, cyanosis or edema Psych: Appearance: grossly normal Objective Data Labs 03/28/25 05:29 03/28/25 05:29 Labs: Laboratory Results - last 24 hr 03/27/25 03/27/25 03/27/25 12:57 12:59 12:59 WBC 5.8 RBC 4.24 L Hgb 12.5 L Hct 38.3 L MCV 90.3 MCH 29.5 MCHC 32.6 RDW 15.0 Plt Count 101 L D MPV 10.2 Immature Gran % (Auto) 0.5 H Neut % (Auto) 85.2 H Lymph % (Auto) 7.4 L [place] % (Auto) 6.4 Eos % (Auto) 0.2 Baso % (Auto) 0.3 Lymph # (Auto) 0.4 L [place] # (Auto) 0.4 Eos # (Auto) 0.0 Baso # (Auto) 0.0 Abs Immat Gran (auto) 0.03 Absolute Neuts (auto) 5.0 Absolute Nucleated RBC 0.000 Nucleated RBC % (auto) 0.0 Hold Purple Top SEE NOTE SEE NOTE PT INR O2 Saturation ABG pH at Pt Temp ABG pCO2 at Pt Temp ABG pO2 at Pt Temp ABG HCO3 ABG Base Excess (Actual) VBG pH VBG pCO2 VBG pO2 VBG HCO3 VBG O2 Saturation VBG Base Excess Sodium 141 Potassium 4.2 Chloride 110 H Carbon Dioxide 19 L Anion Gap 16 BUN 23 H Creatinine 2.29 H Estim Creat Clear Calc 25.2 Estimated GFR 28 POC Glucose Random Glucose 132 H Lactic Acid 1.6 Lactic Acid F/U @ 2Hr Calcium 8.9 Magnesium Total Bilirubin 1.3 H Direct Bilirubin 0.7 H AST 69 H ALT 51 H Alkaline Phosphatase 99 Total Creatine Kinase 103 Troponin I High Sens 37.9 H D NT-Pro-B Natriuret Pep 3094.8 H Total Protein 6.9 Albumin 4.3 Lipase Procalcitonin 12.68 Urine Color Urine Appearance Urine pH Ur Specific [place] Urine Protein Urine Glucose (UA) Urine Ketones Urine Blood Urine Nitrite Ur Leukocyte Esterase Urine RBC Urine WBC Ur Squamous Epith Cells Urine Bacteria Hyaline Casts Respiratory Panel Keen Adenovirus (Rapid PCR) B.pert (TEM-PCR) B.parapertussis DNA PCR C. pneumoniae DNA (PCR) Coronavirus OC43 (PCR) Coronavirus HKU1 (PCR) Coronavirus 229E (PCR) COVID-19 (TARA) COVID-19 Clin Com Coronavirus NL63 (PCR) Human Metapneumovir PCR Influenza Type A (MAKSIM) Influenza A (RT-PCR) Influenza A (H1) PCR Influ A (H1/09) PCR Influenza A (H3) PCR Influenza Type A (PCR) Influenza Type B (MAKSIM) Influenza B (RT-PCR) Influenza Type B (PCR) Influenza A & B Note M. pneumoniae (PCR) Parainfluenza 1 (PCR) Parainfluenza 2 (PCR) Parainfluenza 3 (PCR) Parainfluenza 4 (PCR) RSV (PCR) RSV RNA Qual (PCR) Entero/Rhino (PCR) SARS-CoV-2 RNA (RT-PCR) 03/27/25 03/27/25 03/27/25 13:01 13:02 13:07 WBC RBC Hgb Hct MCV MCH MCHC RDW Plt Count MPV Immature Gran % (Auto) Neut % (Auto) Lymph % (Auto) [place] % (Auto) Eos % (Auto) Baso % (Auto) Lymph # (Auto) [place] # (Auto) Eos # (Auto) Baso # (Auto) Abs Immat Gran (auto) Absolute Neuts (auto) Absolute Nucleated RBC Nucleated RBC % (auto) Hold Purple Top PT 13.0 H INR 1.1 O2 Saturation 92.0 ABG pH at Pt Temp 7.41 ABG pCO2 at Pt Temp 28 L ABG pO2 at Pt Temp 66 L ABG HCO3 18 L ABG Base Excess (Actual) -4.5 VBG pH VBG pCO2 VBG pO2 VBG HCO3 VBG O2 Saturation VBG Base Excess Sodium Potassium Chloride Carbon Dioxide Anion Gap BUN Creatinine Estim Creat Clear Calc Estimated GFR POC Glucose Random Glucose Lactic Acid Lactic Acid F/U @ 2Hr Calcium Magnesium Total Bilirubin Direct Bilirubin AST ALT Alkaline Phosphatase Total Creatine Kinase Troponin I High Sens NT-Pro-B Natriuret Pep Total Protein Albumin Lipase Procalcitonin Urine Color Urine Appearance Urine pH Ur Specific [place] Urine Protein Urine Glucose (UA) Urine Ketones Urine Blood Urine Nitrite Ur Leukocyte Esterase Urine RBC Urine WBC Ur Squamous Epith Cells Urine Bacteria Hyaline Casts Respiratory Panel Keen Adenovirus (Rapid PCR) B.pert (TEM-PCR) B.parapertussis DNA PCR C. pneumoniae DNA (PCR) Coronavirus OC43 (PCR) Coronavirus HKU1 (PCR) Coronavirus 229E (PCR) COVID-19 (TARA) Negative COVID-19 Clin Com See Note Coronavirus NL63 (PCR) Human Metapneumovir PCR Influenza Type A (MAKSIM) Negative Influenza A (RT-PCR) Influenza A (H1) PCR Influ A (H1/09) PCR Influenza A (H3) PCR Influenza Type A (PCR) NEGATIVE Influenza Type B (MAKSIM) Negative Influenza B (RT-PCR) Influenza Type B (PCR) NEGATIVE Influenza A & B Note See Note M. pneumoniae (PCR) Parainfluenza 1 (PCR) Parainfluenza 2 (PCR) Parainfluenza 3 (PCR) Parainfluenza 4 (PCR) RSV (PCR) RSV RNA Qual (PCR) NEGATIVE Entero/Rhino (PCR) SARS-CoV-2 RNA (RT-PCR) NEGATIVE 03/27/25 03/28/25 03/28/25 13:18 00:46 01:12 EST WBC 11.4 H RBC 4.52 L Hgb 13.2 L Hct 42.4 MCV 93.8 MCH 29.2 MCHC 31.1 RDW 15.1 Plt Count 108 L MPV 10.3 Immature Gran % (Auto) 0.4 Neut % (Auto) 83.2 H Lymph % (Auto) 13.0 L [place] % (Auto) 2.8 Eos % (Auto) 0.2 Baso % (Auto) 0.4 Lymph # (Auto) 1.5 [place] # (Auto) 0.3 Eos # (Auto) 0.0 Baso # (Auto) 0.0 Abs Immat Gran (auto) 0.05 H Absolute Neuts (auto) 9.5 H Absolute Nucleated RBC 0.000 Nucleated RBC % (auto) 0.0 Hold Purple Top PT INR O2 Saturation 95.0 ABG pH at Pt Temp 7.35 ABG pCO2 at Pt Temp 33 ABG pO2 at Pt Temp 73 L ABG HCO3 18 L ABG Base Excess (Actual) -5.8 VBG pH VBG pCO2 VBG pO2 VBG HCO3 VBG O2 Saturation VBG Base Excess Sodium 144 Potassium 4.2 Chloride 110 H Carbon Dioxide 18 L Anion Gap 20 BUN 21 H Creatinine 2.17 H Estim Creat Clear Calc 26.6 Estimated GFR 29 POC Glucose Random Glucose 124 H Lactic Acid 5.5 H* Lactic Acid F/U @ 2Hr Calcium 8.6 Magnesium Total Bilirubin 1.2 H Direct Bilirubin AST 61 H ALT 49 H Alkaline Phosphatase 99 Total Creatine Kinase Troponin I High Sens NT-Pro-B Natriuret Pep Total Protein 7.1 Albumin 4.4 Lipase 9 Procalcitonin Urine Color Dark Yellow Urine Appearance Cloudy Urine pH 5.0 Ur Specific [place] 1.025 Urine Protein 100 (2+) H Urine Glucose (UA) Negative Urine Ketones Trace Urine Blood Moderate (2+) H Urine Nitrite Negative Ur Leukocyte Esterase Small (1+) H Urine RBC 0-2 Urine WBC 6-10 Ur Squamous Epith Cells 6-10 Urine Bacteria Trace Hyaline Casts 0-2 Respiratory Panel Keen See Note Adenovirus (Rapid PCR) Not Detected B.pert (TEM-PCR) Not Detected B.parapertussis DNA PCR Not Detected C. pneumoniae DNA (PCR) Not Detected Coronavirus OC43 (PCR) Not Detected Coronavirus HKU1 (PCR) Not Detected Coronavirus 229E (PCR) Not Detected COVID-19 (TARA) COVID-19 Clin Com Coronavirus NL63 (PCR) Not Detected Human Metapneumovir PCR Not Detected Influenza Type A (MAKSIM) Influenza A (RT-PCR) Not Detected Influenza A (H1) PCR Not Detected Influ A (H1/09) PCR Not Detected Influenza A (H3) PCR Not Detected Influenza Type A (PCR) Influenza Type B (MAKSIM) Influenza B (RT-PCR) Not Detected Influenza Type B (PCR) Influenza A & B Note M. pneumoniae (PCR) Not Detected Parainfluenza 1 (PCR) Not Detected Parainfluenza 2 (PCR) Not Detected Parainfluenza 3 (PCR) Not Detected Parainfluenza 4 (PCR) Not Detected RSV (PCR) Not Detected RSV RNA Qual (PCR) Entero/Rhino (PCR) Not Detected SARS-CoV-2 RNA (RT-PCR) Not Detected 03/28/25 03/28/25 03/28/25 03:03 05:29 05:35 WBC 6.4 RBC 3.48 L D Hgb 10.2 L D Hct 32.7 L D MCV 94.0 MCH 29.3 MCHC 31.2 RDW 15.3 Plt Count 79 L D MPV 11.1 Immature Gran % (Auto) Neut % (Auto) Lymph % (Auto) [place] % (Auto) Eos % (Auto) Baso % (Auto) Lymph # (Auto) [place] # (Auto) Eos # (Auto) Baso # (Auto) Abs Immat Gran (auto) Absolute Neuts (auto) Absolute Nucleated RBC 0.000 Nucleated RBC % (auto) 0.0 Hold Purple Top PT INR O2 Saturation ABG pH at Pt Temp ABG pCO2 at Pt Temp ABG pO2 at Pt Temp ABG HCO3 ABG Base Excess (Actual) VBG pH 7.43 VBG pCO2 29 VBG pO2 133 VBG HCO3 20 L VBG O2 Saturation 100.0 VBG Base Excess -3.1 Sodium 142 Potassium 4.6 Chloride 112 H Carbon Dioxide 19 L Anion Gap 16 BUN 25 H Creatinine 2.16 H Estim Creat Clear Calc 26.8 Estimated GFR 29 POC Glucose Random Glucose 151 H Lactic Acid Lactic Acid F/U @ 2Hr 1.1 Calcium 8.3 L Magnesium 2.1 Total Bilirubin Direct Bilirubin AST ALT Alkaline Phosphatase Total Creatine Kinase Troponin I High Sens NT-Pro-B Natriuret Pep 84614.8 H Total Protein Albumin Lipase Procalcitonin Urine Color Urine Appearance Urine pH Ur Specific [place] Urine Protein Urine Glucose (UA) Urine Ketones Urine Blood Urine Nitrite Ur Leukocyte Esterase Urine RBC Urine WBC Ur Squamous Epith Cells Urine Bacteria Hyaline Casts Respiratory Panel Keen Adenovirus (Rapid PCR) B.pert (TEM-PCR) B.parapertussis DNA PCR C. pneumoniae DNA (PCR) Coronavirus OC43 (PCR) Coronavirus HKU1 (PCR) Coronavirus 229E (PCR) COVID-19 (TARA) COVID-19 Clin Com Coronavirus NL63 (PCR) Human Metapneumovir PCR Influenza Type A (MAKSIM) Influenza A (RT-PCR) Influenza A (H1) PCR Influ A (H1/09) PCR Influenza A (H3) PCR Influenza Type A (PCR) Influenza Type B (MAKSIM) Influenza B (RT-PCR) Influenza Type B (PCR) Influenza A & B Note M. pneumoniae (PCR) Parainfluenza 1 (PCR) Parainfluenza 2 (PCR) Parainfluenza 3 (PCR) Parainfluenza 4 (PCR) RSV (PCR) RSV RNA Qual (PCR) Entero/Rhino (PCR) SARS-CoV-2 RNA (RT-PCR) 03/28/25 05:58 WBC RBC Hgb Hct MCV MCH MCHC RDW Plt Count MPV Immature Gran % (Auto) Neut % (Auto) Lymph % (Auto) [place] % (Auto) Eos % (Auto) Baso % (Auto) Lymph # (Auto) [place] # (Auto) Eos # (Auto) Baso # (Auto) Abs Immat Gran (auto) Absolute Neuts (auto) Absolute Nucleated RBC Nucleated RBC % (auto) Hold Purple Top PT INR O2 Saturation ABG pH at Pt Temp ABG pCO2 at Pt Temp ABG pO2 at Pt Temp ABG HCO3 ABG Base Excess (Actual) VBG pH VBG pCO2 VBG pO2 VBG HCO3 VBG O2 Saturation VBG Base Excess Sodium Potassium Chloride Carbon Dioxide Anion Gap BUN Creatinine Estim Creat Clear Calc Estimated GFR POC Glucose 149 H Random Glucose Lactic Acid Lactic Acid F/U @ 2Hr Calcium Magnesium Total Bilirubin Direct Bilirubin AST ALT Alkaline Phosphatase Total Creatine Kinase Troponin I High Sens NT-Pro-B Natriuret Pep Total Protein Albumin Lipase Procalcitonin Urine Color Urine Appearance Urine pH Ur Specific [place] Urine Protein Urine Glucose (UA) Urine Ketones Urine Blood Urine Nitrite Ur Leukocyte Esterase Urine RBC Urine WBC Ur Squamous Epith Cells Urine Bacteria Hyaline Casts Respiratory Panel Keen Adenovirus (Rapid PCR) B.pert (TEM-PCR) B.parapertussis DNA PCR C. pneumoniae DNA (PCR) Coronavirus OC43 (PCR) Coronavirus HKU1 (PCR) Coronavirus 229E (PCR) COVID-19 (TARA) COVID-19 Clin Com Coronavirus NL63 (PCR) Human Metapneumovir PCR Influenza Type A (MAKSIM) Influenza A (RT-PCR) Influenza A (H1) PCR Influ A (H1/) PCR Influenza A (H3) PCR Influenza Type A (PCR) Influenza Type B (MAKSIM) Influenza B (RT-PCR) Influenza Type B (PCR) Influenza A & B Note M. pneumoniae (PCR) Parainfluenza 1 (PCR) Parainfluenza 2 (PCR) Parainfluenza 3 (PCR) Parainfluenza 4 (PCR) RSV (PCR) RSV RNA Qual (PCR) Entero/Rhino (PCR) SARS-CoV-2 RNA (RT-PCR) Microbiology Microbiology Results: Microbiology 03/27/25 12:59 Blood - Venous Blood Culture - Preliminary Prelim: GNR Gram Stain only 03/27/25 12:57 Blood - Venous Blood Culture - Preliminary Prelim: GNR Gram Stain only Progress Note: A&P Assessment and plan (1) Acute respiratory failure with hypoxia: Status: Acute (2) CHF exacerbation: Status: Acute (3) Pneumonia: Status: Acute Plan Patient is a 79 Y M w/ dementia presenting to ED from care home on 03/27 d/t fever, found to be hypoxic; ED work-up suggestive of pneumonia, admitted medicine on [facility]; on 03/28 AM, patient w/ worsening hypoxia, placed on non-invasive w/ some improvement N: encephalopathy, likely toxic-metabolic, to closely monitor; dementia CV: no acute issues, to closely monitor; s/p pacemaker R: acute hypoxic respiratory failure, likely multifactorial, d/t pneumonia, CHF exacerbation, BiPAP, wean as tolerated GI: NPO while on non-invasive, encephalopathic, otherwise advance as tolerated : acute on chronic renal insufficiency; c/f volume overload in setting of CHF exacerbation, furosemide gtt, to monitor renal indices/electrolytes H: no acute issues; chemical DVT prophylaxis ID: c/f pneumonia, c/b bacteremia empiric zosyn; to follow-up BCx 03/27; UA appears contaminated, to follow-up UCx 03/27 E: to monitor hypo-/hyper-glycemia P: no acute issues S: daily updates given to daughter/HCP, DNR/DNI Quality Stroke Does the patient have a stroke diagnosis?: No VTE Prior VTE?: No VTE Risk Level:: Medical - moderate - high VTE Device Contraindication: N/A - Device Ordered VTE Drug Contraindication: N/A - Med Ordered
[2025-03-28 09:57] LABS: MRSA Nasal PCR NEGATIVE (Negative); SA Nasal PCR POSITIVE (Negative)
--- NOTE | 2025-03-28 12:54 | MHC.CM.PN ---
Attempted to meet with patient in regards to discharge planning. Patient is currently intubated/vented. Patient's son, Westley, is currently at bedside. Patient lives alone, ambulates with a cane and had no services prior to coming to the hospital. PCP verified. Copy of HCP obtained from [facility]. IMM explained and signed. Westley states patient was never been to short term rehab. Westley aware physical therapy eval for home safety may be necessary when patient is medically stable. Continue to monitor for d/c needs.
--- NOTE | 2025-03-28 13:03 | MHC.CM.PN ---
Attempted to meet with patient in regards to discharge planning. Patient currently on bipap. Spoke with patient's daughter, Anastasia, via telephone at [phone]. Anastasia verifies patient is a [facility] [employer] intermediary care resident at [facility] and typically uses a wheelchair for mobility. HCP verified to be on file. IMM explained and sent via certified mail. Patient will need BLS transport when medically stable. Continue to monitor for d/c needs.
[2025-03-28 18:34] LABS: Anion Gap 17 (12-20); Blood Urea Nitrogen 33 mg/dL (9-16); Calcium 9.0 mg/dL (8.4-10.2); Carbon Dioxide 22 mmol/L (22-29); Chloride 109 mmol/L (96-108); Creatinine Clr Calc Pharmacy 24.4; Estimated Glomerular Filt Rate 26; Magnesium 2.2 mg/dL (1.6-2.6); Potassium 3.8 mmol/L (3.3-5.1); Sodium 144 mmol/L (135-145)
--- NOTE | 2025-03-28 19:29 | PC.NURSE ---
Patient arrived to unit via stretcher from M/T this AM, Lasix gtt started this AM, Morton positional at times , denies pain or discomfort, bipap continues 10/5 on 40%, tolerating well.
[2025-03-29] VITALS (26 sets, daily range): BP systolic 103–157; BP diastolic 42–103; PULSE 60–90; RESP 11–20; TEMP 36.1–37; O2SAT 88–97; BMI 25.4
[2025-03-29] MEDS: Furosemide 200 MG in 0.9 % Sodium Chloride 80 ML IVCONT (00:22)
[2025-03-29 04:56] LABS: VBG HCO3 25 mmol/L (22-26); VBG O2 % Saturation 92.0 %
[2025-03-29 05:00] LABS: Venous Blood Gas Refer to POC result
[2025-03-29 05:10] LABS: MANUAL DIFF FLAG NO
[2025-03-29 05:12] LABS: Hematocrit 33.2 % (42.0-52.0); Hemoglobin 10.9 g/dl (14.0-18.0); Imm Gran Abs Auto 0.03 X10*3/uL (0.00-0.03); Imm Gran Pct Auto 0.4 % (0.0-0.4); Lymphocytes Absolute Auto 0.7 X10*3/uL (1.2-4.9); Mean Corpuscular HGB Conc 32.8 g/dl (31.0-36.0); Mean Corpuscular Hemoglobin 29.1 pg (27.0-33.0); Mean Corpuscular Volume 88.5 fL (80.0-98.0); NRBC Abs Auto 0.000 X10*3/uL (0.0-0.012); NRBC Pct Auto 0.0 /100WBC (0.0-0.2); Platelet Count 107 X10*3/uL (160-400); Red Blood Count 3.75 X10*6/uL (4.60-5.80); White Blood Count 8.2 X10*3/uL (4.8-10.8)
[2025-03-29 05:30] LABS: Albumin Level 4.6 g/dL (3.5-5.0); Anion Gap 17 (12-20); Blood Urea Nitrogen 44 mg/dL (9-16); Calcium 9.2 mg/dL (8.4-10.2); Carbon Dioxide 24 mmol/L (22-29); Chloride 108 mmol/L (96-108); Creatinine Clr Calc Pharmacy 23.4; Estimated Glomerular Filt Rate 25; Magnesium 2.2 mg/dL (1.6-2.6); Potassium 3.4 mmol/L (3.3-5.1); Sodium 146 mmol/L (135-145)
--- NOTE | 2025-03-29 06:50 | PC.NURSE ---
Patient remains in ICU. Pleasantly confused, A&Ox2 with hx of dementia. Easily reoriented. Pt continues on lasix gtt per MAR. Pt on Bipap on assuming care, requested break which was coordinated with RT. Pt tolerated 6L oxymask in the evening as per pt request, before agreeable and replaced on bipap 10/5/40% for sleep. Breathing remains even and unlabored without distress, spo2 maintained per provider order. IUC remains intact and patent of odorless clear yellow urine. Preventative foam and barrier cream to buttocks. Foam continues in place to nose bridge for protection. Bed alarm on and safety measures in place. Please see MAR, tasks in worklist, and shift assessments for full details. Plan of care ongoing.
--- NOTE | 2025-03-29 07:00 | CA_ITS ---
Transthoracic Echocardiogram Patient (Last, First, Middle): Clifford Ashby A Gender: Male Date of : 1945 Age: 79 Procedure Date: 03/29/2025 Procedure Type: Transthoracic Echocardiogram Location: ICU Height: 175.26 cm Weight: 77.57 kg BSA: 1.93 m2 Heart Rate: 60 bpm BP: 130 / 45 mmHg Hand Baseball Sewer: NAKUL Referring MD: Aris Colin MD Symptoms: Systolic CHF, respiratory failure Study Quality: Adequate ECG Rhythm: Sinus Conclusions: - Normal left ventricular cavity size. There is mildly increased left ventricular wall thickness. The left ventricular systolic function is low normal. The visually estimated ejection fraction is between 50-55%. - Mildly increased right ventricular cavity size. There is normal right ventricular systolic function. Findings Left Ventricle Normal left ventricular cavity size. There is mildly increased left ventricular wall thickness. The left ventricular systolic function is low normal. The visually estimated ejection fraction is between 50-55%. There is no evidence of regional wall motion abnormalities. Abnormal diastolic function is noted. Spectral Doppler is indicative of an impaired relaxation filling pattern. E/E prime ratio is between 8 and 15 consistent with indeterminate filling pressures. Right Ventricle Mildly increased right ventricular cavity size. There is normal right ventricular systolic function. Atria The left atrium is likely dilated. The right atrium is mildly dilated. Aortic Valve There is a normal trileaflet aortic valve. There is mild calcification of the aortic valve. There is no aortic valve stenosis. There is trace (trivial) aortic valve regurgitation. Mitral Valve The mitral valve appears normal. There is no mitral valve regurgitation. There is no mitral valve stenosis. Pulmonic Valve The pulmonic valve is normal. There is no pulmonic valve regurgitation. Tricuspid Valve Normal tricuspid valve structure. There is trace tricuspid valve regurgitation. Tricuspid regurgitation envelope is inadequate for calculation of right ventricular systolic pressure. Normal right atrial pressure. Great Vessels All visible segments of the aorta are normal in size. Venous The inferior vena cava is normal in size and collapses greater than 50% with inspiration. Pericardium/Pleural There is a small pericardial effusion. Prior Study Comparison Changes noted compared to prior study dated: 05/07/2024. EF 50-55%,Mild dilation of the right ventricle. Measurements 2D Linear Measurements IVSd: 1.11 0.6-0.9/0.6-1.0 cm LVIDd: 4.45 3.9-5.3/4.2-5.9 cm LVIDd Index: 2.31 2.4-3.2/2.2-3.1 cm/m2 LVIDs: 3.25 2.0-3.6 cm LVPWd: 1.03 0.7-1.1 cm LA Diam: 3.90 2.7-3.8/3.0-4.0 cm LAIDs Index: 2.02 1.5-2.3 cm/m2 LV Mass: 205.99 67-162/88-224 g LV Mass Index: 106.73 43-95/49-115 g/m2 LVOT Diam: 2.00 3.0+(-)1.3 cm 2D Systolic Function EF 4C: 48.80 >55% EF 2C: 55.90 >55% EF BiP: 52.60 >55% Mitral Valve MV Pk E: 0.65 MV PK A: 0.81 MV Decel Time: 288.00 E/A: 0.80 E'Lateral: 5.44 E'Medial: 4.90 E/E' Med: 13.20 E/E' Lat: 11.90 PHT: 84.00 MVA PHT: 2.62 Decel [place]: 2.24 Aortic Valve AoV Pk Nixon: 1.59 AoV Mn Nixon: 1.13 AoV VTI: 0.35 AoV Pk Grad: 10.00 Aov Mn Grad: 6.00 FE Cont.VTI: 1.69 LVOT LVOT Pk Nixon: 0.87 LVOT Mn Nixon: 0.68 LVOT VTI: 0.19 LVOT Pk Grad: 3.00 LVOT Mn Grad: 2.00 LVOT Diam: 2.00 LVOT Area: 3.14 Diastolic Function MV Pk E: 0.65 MV Pk A: 0.81 E/A: 0.80 E'Medial: 4.90 E/E' Med: 13.20 E' Laterial: 5.44 E/E' Lat: 11.90 Right Ventricle TAPSE (mm): 25.80 TVS' Nixon: 13.30 Tricuspid Valve RA Press: 8.00 Great Vessels Aorta Sinus of Valsalva: 3.70 2.0-3.5 cm Ao Asc: 3.30 2.1-3.4 cm Pulmonary Veins Pulm Vein S/D 1.70 Pulmonary Valve PV Pk Nixon: 0.98 Peak PV Grad: 4.00 Updated in Other Vendor System with Status of Final Duncan Winters MD electronically signed on 03/29/2025 7:43:28 PM with status of Final
[2025-03-29] MEDS: 0.9 % Sodium Chloride Flush 3 ML SYRINGE IVFLUSH ×3 (08:48→23:12)
--- NOTE | 2025-03-29 10:27 | P.PNCC_ITS ---
Subjective Subjective Date of Service: 03/29/25 Interval History: 79-year-old gentleman with underlying dementia, liver cirrhosis, CKD admitted on 03/27/2025 with Gram-negative bacteremia with source further complicated by acute hypoxic respiratory failure secondary to pulmonary edema requiring BiPAP support and transferred to the intensive care unit. Patient has been diuresing titrated off noninvasive positive pressure ventilatory support. No events overnight. Critical Care Time (minutes): 0 Physical Exam 2 Vital Signs: Vital Signs: Last Vital Signs Temp 98.0 F 03/29/25 08:00 Pulse 60 03/29/25 09:00 Resp 15 03/29/25 09:00 BP 103/51 L 03/29/25 09:00 Pulse Ox 91 L 03/29/25 09:00 O2 Del Method BiPAP 03/29/25 09:00 O2 Flow Rate 6 03/28/25 23:00 FiO2 40 03/29/25 09:00 BMI result Body Mass Index 25.4 Const: General: no acute distress, alert, awake and confusion O rientation/consciousness: confusion Eyes: Sclerae: sclerae normal EOM: EOMs intact bilaterally Neck: Neck: Yes no lymphadenopathy, Yes trachea midline and Yes supple Resp: Effort & Inspection: normal respiratory effort and no respiratory distress Auscultation: clear to auscultation bilaterally Cardio: Rate: regular rate Rhythm: regular rhythm Heart sounds: no gallops, no murmurs and no rubs GI: Palpation (GI): Soft to palpation and Other GI palpation findings present ( Nontender) Auscultation: normal bowel sounds Neuro: General: confusion Extrem: General: Yes no pedal edema, No clubbing and No cyanosis Objective Data Labs 03/29/25 04:48 03/29/25 04:49 Labs: Laboratory Results - last 24 hr 03/28/25 03/29/25 03/29/25 18:00 04:48 04:49 WBC 8.2 RBC 3.75 L Hgb 10.9 L Hct 33.2 L MCV 88.5 D MCH 29.1 MCHC 32.8 RDW 14.6 Plt Count 107 L D MPV 10.7 Immature Gran % (Auto) 0.4 Neut % (Auto) 85.3 H Lymph % (Auto) 8.2 L [place] % (Auto) 6.1 Eos % (Auto) 0.0 Baso % (Auto) 0.0 Lymph # (Auto) 0.7 L [place] # (Auto) 0.5 Eos # (Auto) 0.0 Baso # (Auto) 0.0 Abs Immat Gran (auto) 0.03 Absolute Neuts (auto) 7.0 Absolute Nucleated RBC 0.000 Nucleated RBC % (auto) 0.0 VBG pH VBG pCO2 VBG pO2 VBG HCO3 VBG O2 Saturation VBG Base Excess Sodium 144 146 H Potassium 3.8 3.4 Chloride 109 H 108 Carbon Dioxide 22 24 Anion Gap 17 17 BUN 33 H 44 H Creatinine 2.37 H 2.47 H Estim Creat Clear Calc 24.4 23.4 Estimated GFR 26 25 Random Glucose 148 H 128 H Calcium 9.0 D 9.2 Phosphorus 2.7 3.2 Magnesium 2.2 2.2 Albumin 4.6 03/29/25 04:51 WBC RBC Hgb Hct MCV MCH MCHC RDW Plt Count MPV Immature Gran % (Auto) Neut % (Auto) Lymph % (Auto) [place] % (Auto) Eos % (Auto) Baso % (Auto) Lymph # (Auto) [place] # (Auto) Eos # (Auto) Baso # (Auto) Abs Immat Gran (auto) Absolute Neuts (auto) Absolute Nucleated RBC Nucleated RBC % (auto) VBG pH 7.47 H VBG pCO2 35 VBG pO2 65 VBG HCO3 25 VBG O2 Saturation 92.0 VBG Base Excess 2.5 Sodium Potassium Chloride Carbon Dioxide Anion Gap BUN Creatinine Estim Creat Clear Calc Estimated GFR Random Glucose Calcium Phosphorus Magnesium Albumin Microbiology Microbiology Results: Microbiology 03/27/25 Unknown Urine Catheterized - Morton Catheter Urine Culture - Preliminary Gram negative rodriguez 03/27/25 12:59 Blood - Venous Blood Culture - Preliminary Gram negative rodriguez 03/27/25 12:57 Blood - Venous Blood Culture - Preliminary Gram negative rodriguez Progress Note: A&P Assessment and plan (1) Gram-negative bacteremia: Status: Acute (2) Urinary tract infection: Status: Acute (3) Pulmonary edema: Status: Acute (4) Alzheimer disease: Status: Acute Plan Assessment: 79-year-old gentleman with underlying dementia, chronic systolic heart failure, liver cirrhosis, and CKD admitted with Gram-negative bacteremia with source further complicated by pulmonary edema and acute exacerbation of underlying chronic systolic congestive heart failure. Plan: Neuro: No acute issues. Underlying waxing and waning mental status secondary to Alzheimer's dementia. Cardiac: Acute on chronic systolic congestive heart failure improving with diuresis. Pulmonary: Acute hypoxic respiratory failure secondary to pulmonary edema secondary to acute exacerbation of chronic systolic congestive heart failure, improving with diuresis. Renal: CLARK on CKD. Non oliguric. Continue to monitor renal indices and urine output. Endo: No acute issues. GI: No acute issues. ID: Gram-negative bacteremia with source, continue empiric antibiotics. Cultures are pending. Heme/Onc: No acute issues. Psych: No acute issues. Miscellaneous: No acute issues. Prophylaxis: Heparin Diet: Pending swallow evaluation Quality Stroke Does the patient have a stroke diagnosis?: No VTE Prior VTE?: No VTE Risk Level:: Medical - moderate - high VTE Device Contraindication: N/A - Device Ordered VTE Drug Contraindication: N/A - Med Ordered
--- NOTE | 2025-03-29 14:27 | MHC.CM.PN ---
Pt on Oxymask in ICU: LTC resident from the [facility]: Possible transfer to the medical floor today for continued care. BLS transport back to SNF. CM to follow
[2025-03-29] MEDS: Potassium Chloride Packet 20 MEQ PACKET 40 MEQ PO (15:26)
--- NOTE | 2025-03-29 15:57 | PM.EVENT ---
Event Note Date of Service: 03/30/25 Event Note: Patient was downgraded by ICU today afternoon. 79-year-old gentleman with underlying dementia, chronic systolic heart failure, liver cirrhosis, and CKD admitted with Gram-negative bacteremia with source further complicated by pulmonary edema and acute exacerbation of underlying chronic systolic congestive heart failure. Patient seems in a week, comfortable, vitals stable Rest of physical exam/assessment and plan per ICU note. Time Spent With Patient Time: Total time managing care of this patient today ____ minutes.
--- NOTE | 2025-03-29 17:08 | MHC.SL.SWA ---
Addendum entered and electronically signed by Nallely Cifuentes MS, CCC-REGISTERED RADIOLOGIC TECHNOLOGIST 03/29/25 17:16: Pt had MBSS 02/01/2025, recc REGULAR diet with THIN liquids, compensatory strategies such as slow pacing, upright positioning, alternating consistencies, no straw, small bites and sips. See REGISTERED RADIOLOGIC TECHNOLOGIST note 02/02/25 for complete report. Original Note: Speech Pathologist Impression: Oropharyngeal swallow WFL Risk of Aspiration Due to: Dysphasia Diet Status: NDD1 with thins, aspiration precautions, 1:1 assist with PO, meds whole with liquid, REGISTERED RADIOLOGIC TECHNOLOGIST to re-assess daily Liquid Consistency and Strategies for Safe Swallow: Liquid Intake Recommendation: Thin Liquid Intake Strategies: Solid Food Consistency: Dietary Recommendations: Pureed (NDD1) Additional Modifications to Solid Foods: Oral Medication Intake: Whole with Liquid Please contact the pharmacy regarding appropriate crushable or liquid drug formulations that are available whenever modified delivery is recommended. Compensatory Strategies and Precautions to be Taken for Safe Swallow: Supervision While Eating and Drinking for Safe Swallow: Direct Supervision (1:1) Foods to Avoid: Swallowing Recommended Treatments: Recommendation for Speech: Inpatient Speech Therapy Comment: Eval 03/29: Pt continues to require oxygen support, with desats occurring when mask removed for trials. Oropharyngeal swallow WFL. O2 sats dropped to 83 without supplemental oxygen, kati to 97 in one instance without mask, and were maintained at 94 s/p trials with mask. Pt alert and pleasant, asking REGISTERED RADIOLOGIC TECHNOLOGIST to explain the purpose of the evaluation. Pt verbalized understanding and expressed agreement. Pt confusion evident at end of evaluation as he asked 'will someone be with me when we take off?' (believing he was in an airplane). Pt easily redirected, remained pleasant. RN and MD consulted. Recc NDD1 with thins, REGISTERED RADIOLOGIC TECHNOLOGIST to re-assess when respiratory status more stable to advance diet. Meds with liquid, aspiration precautions, assist with PO. Frequency/Duration: Daily M-F Date Range for Service Req: Timeline to reassess: Aids Counselor Clinican/Clinical Fellow: No Supervisory Statement: I have reviewed and agree with the student/clinical fellow's documentation: N/A Speech Language Pathologist: Nallely Cifuentes M.S., CCC-REGISTERED RADIOLOGIC TECHNOLOGIST
[2025-03-29] MEDS: Furosemide 40 MG/4 ML VIAL IVPUSH (19:05)
--- NOTE | 2025-03-29 22:05 | PC.NURSE ---
2200. Patient no longer requiring ICU level of care. Pt is alert, oriented to person and hospital, requires redirection to situation and plan. Patient on 5L Oximask with O2 sats above 92 %. No distress noted. Patient incontinent of large brown bm. Personal care provided with barrier cream applied to scrotum and buttocks for intact redness. New purewick applied as patient experiences urinary incontinence and on scheduled Lasix. Patient reports readiness to go home but explained still requiring hospital level of care at this time. Patient transfer to Med/Tele Room 452, report provided to SHABBIR Motta.
[2025-03-30] VITALS (7 sets, daily range): BP systolic 119–144; BP diastolic 59–71; PULSE 65–73; RESP 18–20; TEMP 36.1–36.7; O2SAT 90–95; BMI 25.4
[2025-03-30 07:32] LABS: MANUAL DIFF FLAG NO
--- NOTE | 2025-03-30 07:43 | HO.PM.IMPN ---
Subjective Subjective Date of Service: 03/30/25 Interval History: uti Review of Systems seems awake ,more alert comfotable no new overnight evants Review of Systems: Yes all other systems are reviewed and are negative Physical Exam Exam: Exam: alert oriented to self only lungs-fair air netry,dimished at bases cvs: [id number] ext: pulses present , no cyanois Vital Signs: Vital Signs: Last Vital Signs Temp 98.0 F 03/30/25 07:23 Pulse 65 03/30/25 07:23 Resp 20 03/30/25 07:23 BP 119/71 03/30/25 07:23 Pulse Ox 95 03/30/25 07:23 O2 Del Method Oxymask 03/30/25 07:23 O2 Flow Rate 4 03/30/25 07:23 FiO2 40 03/29/25 09:00 BMI result Body Mass Index 25.4 Objective Data Active Medications Albuterol/Ipratropium (Albuterol/Iprat 2.5/0.5mg 3 Ml Ampul.Neb) 3 ml INHALE RQ4H PRN PRN Reason: Shortness Of Breath Or Wheezing Furosemide (Furosemide 40 Mg/4 Ml Vial) 40 mg IVPUSH BID@0900,1800 [facility]; Protocol Last Admin: 03/29/25 19:05 Dose: 40 mg Documented By: SIMI Heparin Sodium (Porcine) (Heparin Sodium,Porcine 5,000 Unit/Ml Vial) 5,000 unit SUBCUT Q12H [facility] Last Admin: 03/30/25 04:19 Dose: 5,000 unit Documented By: IRENE Piperacillin Sod/Tazobactam (Sod 2.25 gm/ Sodium Chloride) 50 mls @ 100 mls/hr IV Q6H [facility] Last Infusion: 03/30/25 04:57 Dose: Infused Documented By: IRENE Sodium Chloride (0.9 % Sodium Chloride Flush 3 Ml Syringe) 3 ml IVFLUSH QSHIFT [facility] Last Admin: 03/29/25 23:12 Dose: 3 ml Documented By: IRENE Labs 03/30/25 07:22 03/30/25 07:22 Microbiology Microbiology Results: Microbiology 03/27/25 Unknown Urine Culture - Preliminary Urine Catheterized - Morton Catheter Gram negative rodriguez 03/27/25 12:59 Blood Culture - Preliminary Blood - Venous Gram negative rodriguez 03/27/25 12:57 Blood Culture - Preliminary Blood - Venous Gram negative rodriguez Assessment and Plan (1) Systolic CHF: Status: Acute Plan 79-year-old male with history of HTN, HLD, CHF, CVA, heart block s/p PPM placement [facility] found to respiratory failure thought to be ?pneumonia:underlying dementia, liver cirrhosis, CKD admitted on 03/27/2025 with Gram-negative bacteremia with source further complicated by acute hypoxic respiratory failure secondary to pulmonary edema requiring BiPAP support and transferred to the intensive care unit. Patient has been diuresing titrated off noninvasive positive pressure ventilatory support. per chart review: Sepsis and Acute respiratory failure with hypoxia with ?pneumonia vs colitis (please see admisison note): started on iv antibiotics and was on high flow -subsequently respiratory status worsening and admitted on 03/27/2025 with Gram-negative bacteremia with source further complicated by acute hypoxic respiratory failure secondary to pulmonary edema requiring BiPAP support and transferred to the intensive care unit. Patient has been diuresing titrated off noninvasive positive pressure ventilatory support. HFrEF execerbation last echo ef 40% 4 liter negative plan: i/o monitering daily weights iv lasix(hold for now due to hypernatremia) hypernatremia : low po intake /diuresis hold lasix for now moniter bmp closely uti /bacteremia : esbl uti/bacteremia continue meropenem thrombocytopenia chronic-improving follow CBC HTN hold norvasc(start slowly later ), started metoprolol gerd continue pantoprazole CKD3 near baseline h/o NSTEMI on BB, statin, plavix added (moniter cbc) Alzheimer's dementia/mood slowly introduce mirtazapine, sertraline BPH continue flomax dvt prophylax: scd considering thrombocytopenia ongoing need for stay : chf , vicky on ckd,hypernatremia ,esblbactermia . Quality Stroke Does the patient have a stroke diagnosis?: No VTE Prior VTE?: No VTE Risk Level:: Medical - moderate - high VTE Device Contraindication: N/A - Device Ordered VTE Drug Contraindication: N/A - Med Ordered
[2025-03-30 07:57] LABS: Albumin Level 5.1 g/dL (3.5-5.0); Anion Gap 18 (12-20); Blood Urea Nitrogen 54 mg/dL (9-16); Calcium 9.7 mg/dL (8.4-10.2); Carbon Dioxide 27 mmol/L (22-29); Chloride 110 mmol/L (96-108); Creatinine Clr Calc Pharmacy 20.4; Estimated Glomerular Filt Rate 22; Magnesium 2.4 mg/dL (1.6-2.6); Potassium 3.7 mmol/L (3.3-5.1); Sodium 151 mmol/L (135-145)
[2025-03-30 08:01] LABS: Hematocrit 41.1 % (42.0-52.0); Hemoglobin 13.4 g/dl (14.0-18.0); Imm Gran Abs Auto 0.04 X10*3/uL (0.00-0.03); Imm Gran Pct Auto 0.6 % (0.0-0.4); Lymphocytes Absolute Auto 1.4 X10*3/uL (1.2-4.9); Mean Corpuscular HGB Conc 32.6 g/dl (31.0-36.0); Mean Corpuscular Hemoglobin 29.3 pg (27.0-33.0); Mean Corpuscular Volume 89.7 fL (80.0-98.0); NRBC Abs Auto 0.000 X10*3/uL (0.0-0.012); NRBC Pct Auto 0.0 /100WBC (0.0-0.2); Platelet Count 126 X10*3/uL (160-400); Red Blood Count 4.58 X10*6/uL (4.60-5.80); White Blood Count 7.0 X10*3/uL (4.8-10.8)
[2025-03-30] MEDS: Furosemide 40 MG/4 ML VIAL IVPUSH (09:32)
[2025-03-30] MEDS: 0.9 % Sodium Chloride Flush 3 ML SYRINGE IVFLUSH ×3 (09:33→21:27)
--- NOTE | 2025-03-30 15:46 | MHC.SL.SWA ---
Speech Pathologist Impression: Mild oropharyngeal dyspahgia Risk of Aspiration Due to: Cognition, dentition status, hx of PNA Dysphasia Diet Status: Recommend UPGRADE to NDD2, Thin Liquids with intermittent supervision; medications whole in puree Liquid Consistency and Strategies for Safe Swallow: Liquid Intake Recommendation: Thin Liquid Intake Strategies: Solid Food Consistency: Dietary Recommendations: Grnd/Mech Altered (NDD2) Additional Modifications to Solid Foods: Oral Medication Intake: Whole with Puree Please contact the pharmacy regarding appropriate crushable or liquid drug formulations that are available whenever modified delivery is recommended. Compensatory Strategies and Precautions to be Taken for Safe Swallow: Sitting Upright (90 deg) Small Bites and Sips Alternate Liquids/Solids Rate of Ingestion Change Supervision While Eating and Drinking for Safe Swallow: Intermittent Supervision Foods to Avoid: Mixed consistencies Swallowing Recommended Treatments: Compens. Strategy Educat. Recommendation for Speech: Inpatient Speech Therapy Comment: Patient met in room for dysphagia tx. Patient given trial of ground solids this date; marsha cracker crumbs in pudding. Patient with adequate mastication, cohesion and clearance of solids. Patient noted to be swishing water/increase oral manipulation of thin liquids. Patient with cough x2 on thin liquids; likely due to swishing and mixing marsha cracker crumbs with water in oral cavity. Noted mild perseveratory mastication after completion of swallow. When cued to decrease oral manipulation, patient's swallow more timely and organized with no overt s/sx of penetration/aspiration. Per discussion with RN, patient tolerated both breakfast and lunch; sat EOB for lunch and fed self. RN also reporting patient disliking pureed consistencies. Recommend UPGRADE diet to NDD2, Thin liquids with intermittent supervision; RN has not given any meds PO; would recommend whole in puree and could trial whole with liquids per RN's discretion. Diet recommendations communicated with patient and RN in-person. Diet order change by CIVIL DEFENSE DIRECTOR. Patient in agreement. CIVIL DEFENSE DIRECTOR to follow. Frequency/Duration: Daily M-F Date Range for Service Req: Timeline to reassess: Boarding Specialist Clinican/Clinical Fellow: No Supervisory Statement: I have reviewed and agree with the student/clinical fellow's documentation: No Speech Language Pathologist: Barbara Sahni M.A., CCC-CIVIL DEFENSE DIRECTOR
[2025-03-30 20:01] LABS: Anion Gap 16 (12-20); Blood Urea Nitrogen 53 mg/dL (9-16); Calcium 9.4 mg/dL (8.4-10.2); Carbon Dioxide 27 mmol/L (22-29); Chloride 108 mmol/L (96-108); Creatinine Clr Calc Pharmacy 21.1; Estimated Glomerular Filt Rate 22; Potassium 3.2 mmol/L (3.3-5.1); Sodium 148 mmol/L (135-145)
[2025-03-31] VITALS (7 sets, daily range): BP systolic 116–136; BP diastolic 61–82; PULSE 59–79; RESP 16–20; TEMP 36.3–37; O2SAT 93–97; BMI 22.1
[2025-03-31 00:14] LABS: Strep Pneumo Ag urine Not Detected (Not Detected)
[2025-03-31] MEDS: Potassium Chloride Packet 20 MEQ PACKET 40 MEQ PO (01:39)
[2025-03-31 07:09] LABS: Hematocrit 42.8 % (42.0-52.0); Hemoglobin 13.9 g/dl (14.0-18.0); Mean Corpuscular HGB Conc 32.5 g/dl (31.0-36.0); Mean Corpuscular Hemoglobin 29.0 pg (27.0-33.0); Mean Corpuscular Volume 89.4 fL (80.0-98.0); NRBC Abs Auto 0.000 X10*3/uL (0.0-0.012); NRBC Pct Auto 0.0 /100WBC (0.0-0.2); Platelet Count 141 X10*3/uL (160-400); Red Blood Count 4.79 X10*6/uL (4.60-5.80); White Blood Count 7.3 X10*3/uL (4.8-10.8)
[2025-03-31 07:38] LABS: Blood Urea Nitrogen 51 mg/dL (9-16); Calcium 9.7 mg/dL (8.4-10.2); Creatinine Clr Calc Pharmacy 20.9; Estimated Glomerular Filt Rate 23
[2025-03-31 07:49] LABS: Anion Gap 17 (12-20); Carbon Dioxide 24 mmol/L (22-29); Chloride 112 mmol/L (96-108); Potassium 4.0 mmol/L (3.3-5.1); Sodium 149 mmol/L (135-145)
[2025-03-31] MEDS: 0.9 % Sodium Chloride Flush 3 ML SYRINGE IVFLUSH (09:36)
--- NOTE | 2025-03-31 10:19 | MHC.CM.PN ---
Per ROUNDS discussion, Patient is not yet medically cleared for dc (still acute/Sepsis/ID Consult pending); returning to LTC is the goal and CM will continue to follow.
--- NOTE | 2025-03-31 12:41 | P.PNIM_ITS ---
Subjective Subjective Date of Service: 03/31/25 Interval History: reporting improvement Physical Exam 2 Exam: Exam: alert oriented to self only lungs-fair air netry,dimished at bases cvs: [id number] ext: pulses present , no cyanois Vital Signs: Vital Signs: Last Vital Signs Temp 97.8 F 03/31/25 10:56 Pulse 79 03/31/25 10:56 Resp 20 03/31/25 10:56 BP 127/82 03/31/25 10:56 Pulse Ox 97 03/31/25 10:56 O2 Del Method Nasal Cannula 03/31/25 10:56 O2 Flow Rate 2 03/31/25 10:56 FiO2 40 03/29/25 09:00 BMI result Body Mass Index 22.1 Objective Data Active Medications Albuterol/Ipratropium (Albuterol/Iprat 2.5/0.5mg 3 Ml Ampul.Neb) 3 ml INHALE RQ4H PRN PRN Reason: Shortness Of Breath Or Wheezing Amiodarone HCl (Amiodarone Hcl 200 Mg Tablet) 200 mg PO DAILY [facility] Last Admin: 03/31/25 09:36 Dose: 200 mg Documented By: LONA Clopidogrel Bisulfate (Clopidogrel Bisulfate 75 Mg Tablet) 75 mg PO DAILY [facility] Last Admin: 03/31/25 09:36 Dose: 75 mg Documented By: LONA Heparin Sodium (Porcine) (Heparin Sodium,Porcine 5,000 Unit/Ml Vial) 5,000 unit SUBCUT Q12H [facility] Last Admin: 03/31/25 04:00 Dose: 5,000 unit Documented By: TABATHA Dextrose (D5w) 1,000 mls @ 125 mls/hr IVCONT .Q8H [facility] Last Admin: 03/31/25 10:40 Dose: 125 mls/hr Documented By: LONA Meropenem (Meropenem 500 Mg Vial) 500 mg IVPUSH Q12H [facility] Last Admin: 03/31/25 09:36 Dose: 500 mg Documented By: LONA Metoprolol Tartrate (Metoprolol Tartrate 25 Mg Tablet) 25 mg PO DAILY [facility]; Protocol Last Admin: 03/31/25 09:36 Dose: 25 mg Documented By: LONA Sodium Chloride (0.9 % Sodium Chloride Flush 3 Ml Syringe) 3 ml IVFLUSH QSHIFT [facility] Last Admin: 03/31/25 09:36 Dose: 3 ml Documented By: LOAN Labs 03/31/25 06:43 03/31/25 06:43 Labs: Laboratory Results - last 24 hr 03/28/25 03/30/25 03/31/25 04:43 19:18 06:43 MCV 89.4 MCH 29.0 MCHC 32.5 RDW 14.5 Plt Count 141 L MPV 10.0 Absolute Nucleated RBC 0.000 Nucleated RBC % (auto) 0.0 Anion Gap 16 17 Estim Creat Clear Calc 21.1 20.9 Estimated GFR 22 23 Random Glucose 151 H 122 H Calcium 9.4 9.7 NT-Pro-B Natriuret Pep 1158.3 H Ur Strep pneumoniae Ag Not Detected Microbiology Microbiology Results: Microbiology 03/27/25 Unknown Urine Culture - Final Urine Catheterized - Morton Catheter Escherichia coli 03/27/25 12:59 Blood Culture - Final Blood - Venous Escherichia coli 03/27/25 12:57 Blood Culture - Final Blood - Venous Escherichia coli Assessment and Plan (1) Cardiomyopathy: Status: Acute Plan 79M PMH unspecified dementia, prostate ca, barretts esophagus, hfref, CKD III, htn, hld, CVA, heart block s/p pacer, [facility]25 with fever due to ecoli uti with bacteremia, overnight then developed acute hypoxic respiratory failure due to acute on chronic systolic chf requiring bipap and icu transfer. diuresed and given antibiotics, downgraded 03/29/25 Severe sepsis due to urinary tract infection with bacteria Culture growing ESBL Ecoli Changed to meropenem, follow up Infectious Disease acute hypoxic respiratory failure due to acute on chronic systolic chf resolved, continue metoprolol history of cva plavix vicky on ckd IV likely ATN due to above, monitor nephro following acute hypernatremia d5w, monitor dvt prophylaxis - hep sq dnr/sni reason for continued hospitalization:mdr bacteremia Quality Stroke Does the patient have a stroke diagnosis?: No VTE Prior VTE?: No VTE Risk Level:: Medical - moderate - high VTE Device Contraindication: N/A - Device Ordered VTE Drug Contraindication: N/A - Med Ordered
--- NOTE | 2025-03-31 13:35 | MHC.SL.SWA ---
Speech Pathologist Impression: Oropharyngeal swallow WNL Risk of Aspiration Due to: Hx CVA Hx aspiration PNA Cognitive decline Dysphasia Diet Status: Recommend UPGRADE to NDD3, Thin Liquids with intermittent supervision; medications whole in puree Liquid Consistency and Strategies for Safe Swallow: Liquid Intake Recommendation: Thin Liquid Intake Strategies: Solid Food Consistency: Dietary Recommendations: Chopped/Advanced (NDD3) Additional Modifications to Solid Foods: Oral Medication Intake: Whole with Puree Please contact the pharmacy regarding appropriate crushable or liquid drug formulations that are available whenever modified delivery is recommended. Compensatory Strategies and Precautions to be Taken for Safe Swallow: Sitting Upright (90 deg) Small Bites and Sips Alternate Liquids/Solids Rate of Ingestion Change Supervision While Eating and Drinking for Safe Swallow: Intermittent Supervision Foods to Avoid: Mixed consistencies Swallowing Recommended Treatments: Compens. Strategy Educat. Recommendation for Speech: Inpatient Speech Therapy Comment: Pt seen for dysphagia treatment, pt alert and conversant. RN consulted, reported pt takes meds in puree, no concerns reported with pt PO intake. Trials of regular solids presented. Oropharyngeal coordination WNL. No overt s/s of aspiration with solids/thins and purees. Pt independently alternated consistencies. Recc advance to NDD3 with thins, meds in puree. 1:1 assist with set-up/feeding as needed. Aspiration precautions. TITLE INSURANCE SALES REPRESENTATIVE to follow. Frequency/Duration: Daily M-F Date Range for Service Req: Timeline to reassess: Collision Mechanic Clinican/Clinical Fellow: No Supervisory Statement: I have reviewed and agree with the student/clinical fellow's documentation: No Speech Language Pathologist: Nallely Cifuentes M.S., [facility]-TITLE INSURANCE SALES REPRESENTATIVE
--- NOTE | 2025-03-31 14:49 | P.CONCA_ITS ---
History of Present Illness History of Present Illness Date of Service: 03/31/25 Requesting physician: Cecilia Polo Chief complaint: respiratory failure ?CHF Narrative: 79-year-old gentleman with Alzheimer's dementia, previous heart block status post pacemaker, Hoffman's esophagus, heart failure with reduced ejection fraction, CKD and prostate cancer. [facility] is [facility] with fever due to E coli bacteremia. He apparently had hypoxic respiratory failure requiring BiPAP and ICU care. He was downgraded on March 29. He underwent echocardiography which is showing EF 50-55% which is improved compared to before. He is currently denying any symptoms. He is not short of breath or getting any orthopnea or PND. In fact he is getting some fluids given to him and he is on D5W. He is on antibiotics for UTI. Overall denying any symptoms at this point. [facility] Past Medical History Medical History (Updated 03/29/25 @ 10:30 by Asael Bonner MD) Alzheimer disease Cerebral atrophy Intracranial atherosclerosis Carotid stenosis Hypertension TIA (transient ischemic attack) CKD (chronic kidney disease) New onset of congestive heart failure Diverticulitis Dementia Hoffman esophagus Malignant neoplasm of prostate Cirrhosis of liver Family History Family History Father CAD (coronary artery disease) Surgical History Surgical History H/O radical prostatectomy Social History Social History Household Members: None Housing: Other Housing Other:: [facility] Do you presently have visiting nurse or other home services: No Alcohol intake: former Patient Tobacco Use Status: Never used Tobacco Currently Displaying Signs/Symptoms of Drug Intoxication Withdrawal: No Advance Directives: Yes Advance Directives on File: Yes Advance Directives Date on File: 12/22/21 Do you have a plan to hurt others: No Plan Nutrition Risks: No Nutritional Risk service: Yes Current occupational status: retired Meds Allergies Allergy/AdvReac Type Severity Reaction Status Date / Time lisinopril (LISINOPRIL) Allergy Mild UNKNOWN Verified 12/12/24 18:57 baclofen (BACLOFEN) Allergy Unknown UNKNOWN Verified 12/12/24 18:57 shellfish derived (SHELLFISH Allergy Unknown UNKNOWN Verified 12/12/24 18:57 DERIVED) cephalexin (From Keflex) Allergy Unknown Verified 03/27/25 12:48 Active Medications: Current Medications Albuterol/Ipratropium (Albuterol/Iprat 2.5/0.5mg 3 Ml Ampul.Neb) 3 ml INHALE RQ4H PRN PRN Reason: Shortness Of Breath Or Wheezing Amiodarone HCl (Amiodarone Hcl 200 Mg Tablet) 200 mg PO DAILY [facility] Last Admin: 03/31/25 09:36 Dose: 200 mg Clopidogrel Bisulfate (Clopidogrel Bisulfate 75 Mg Tablet) 75 mg PO DAILY [facility] Last Admin: 03/31/25 09:36 Dose: 75 mg Heparin Sodium (Porcine) (Heparin Sodium,Porcine 5,000 Unit/Ml Vial) 5,000 unit SUBCUT Q12H [facility] Last Admin: 03/31/25 04:00 Dose: 5,000 unit Dextrose (D5w) 1,000 mls @ 125 mls/hr IVCONT .Q8H [facility] Last Admin: 03/31/25 10:40 Dose: 125 mls/hr Meropenem (Meropenem 500 Mg Vial) 500 mg IVPUSH Q12H [facility] Last Admin: 03/31/25 09:36 Dose: 500 mg Metoprolol Tartrate (Metoprolol Tartrate 25 Mg Tablet) 25 mg PO DAILY [facility]; Protocol Last Admin: 03/31/25 09:36 Dose: 25 mg Sodium Chloride (0.9 % Sodium Chloride Flush 3 Ml Syringe) 3 ml IVFLUSH QSHIFT [facility] Last Admin: 03/31/25 09:36 Dose: 3 ml Home Medications ?Medication ?Instructions ?Recorded ?Confirmed ?Last Taken ?Type allopurinol 100 mg tablet 50 mg PO DAILY 12/18/2106/2003/27/25 History cholecalciferol (vitamin D3) 50 50 mcg PO DAILY 03/27/25 03/27/25 History mcg (2,000 unit) tablet loratadine 10 mg tablet 10 mg PO BEDTIME 12/18/2112/17/21 History pantoprazole 40 mg tablet,delayed 40 mg PO BID@0630,16 30 06/17/23 03/27/25 Unknown History release mirtazapine 30 mg tablet 30 mg PO BEDTIME 03/02/24 Unknown History multivitamin 1 tab PO DAILY 05/06/2406/20 Unknown History thiamine HCl (vitamin B1) 100 mg 100 mg PO DAILY 05/0603/27/25 Unknown History tablet acetaminophen 325 mg tablet 650 mg PO BID 05/28/2406/20 Unknown History aluminum-mag hydroxide-simethicone 30 ml PO TID PRN He artburn 05/28/24 03/27/25 Unknown History 200 mg-200 mg-20 mg/5 mL oral susp (Mag-Al Plus) calcium carbonate 500 mg PO Q4H PRN Heartburn 05/28/24 03/27/25 Unknown History famotidine 20 mg tablet 20 mg PO DAILY PRN Heartburn 05/28/24 03/27/25 Unknown History lactase 3,000 unit tablet 3,000 unit PO Q1H PRN Lactos e 05/28/24 03/27/25 Unknown History Intolerance ondansetron 4 mg disintegrating 4 mg PO Q6H PRN Nausea And Vomiting 05/28/24 03/27/25 Unknown History tablet polyethylene glycol 3350 17 gram 17 g PO DAILY PRN Con stipation 05/28/24 03/27/25 Unknown History oral powder packet sertraline 50 mg tablet 50 mg PO DAILY 07/29/2406/20 Unknown History tamsulosin 0.4 mg capsule (Flomax) 0.4 mg PO BEDTIME 0 07/29/24 03/27/25 Unknown History amiodarone 200 mg tablet 200 mg PO DAILY 10/23/2406/2003/27/25 History acetaminophen 325 mg tablet 650 mg PO Q4H PRN Pain (Sc bob 12/13/24 03/27/25 Unknown History Score 1-3) ferrous sulfate 325 mg (65 mg 325 mg PO DAILY 12/13/24 03/27/25 Unknown History iron) tablet metoprolol succinate 25 mg 25 mg PO DAILY 12/13/2406/20 Unknown History tablet,extended release 24 hr acetaminophen 650 mg rectal 650 mg SD Q6H PRN Fever Or Pain 03/27/25 03/27/25 03/27/25 11:11 History suppository ipratropium 0.5 mg-albuterol 3 mg 3 ml inhalation Q4H PRN Shortness 03/27/25 03/27/25 Unknown History (2.5 mg base)/3 mL nebulization Of Breath Or Wheezing soln Physical Exam 2 Vital Signs: Vital Signs: Last Vital Signs Temp 97.8 F 03/31/25 10:56 Pulse 79 03/31/25 10:56 Resp 20 03/31/25 10:56 BP 127/82 03/31/25 10:56 Pulse Ox 97 03/31/25 10:56 O2 Del Method Nasal Cannula 03/31/25 10:56 O2 Flow Rate 2 03/31/25 10:56 FiO2 40 03/29/25 09:00 BMI result Body Mass Index 22.1 GENERAL APPEARANCE: in no acute distress, pleasant. NECK: no carotid bruit, no jugular venous distention. SKIN: no suspicious lesions, warm and dry. HEART: no murmurs, regular rate and rhythm. LUNGS: clear to auscultation bilaterally. ABDOMEN: soft, nontender. EXTREMITIES: no edema. PERIPHERAL PULSES: equal. NEUROLOGIC: No gross deficits, AAO X 3 Objective Labs and Meds 03/31/25 06:43 03/31/25 06:43 Lab results: Laboratory Results - last 24 hr 03/28/25 03/30/25 03/31/25 04:43 19:18 06:43 WBC 7.3 RBC 4.79 Hgb 13.9 L Hct 42.8 MCV 89.4 MCH 29.0 MCHC 32.5 RDW 14.5 Plt Count 141 L MPV 10.0 Absolute Nucleated RBC 0.000 Nucleated RBC % (auto) 0.0 Sodium 148 H 149 H Potassium 3.2 L 4.0 D Chloride 108 112 H Carbon Dioxide 27 24 Anion Gap 16 17 BUN 53 H 51 H Creatinine 2.74 H 2.65 H Estim Creat Clear Calc 21.1 20.9 Estimated GFR 22 23 Random Glucose 151 H 122 H Calcium 9.4 9.7 NT-Pro-B Natriuret Pep 1158.3 H Ur Strep pneumoniae Ag Not Detected Assessment and Plan (1) CHF exacerbation: Status: Acute Plan [age] gentleman who had acute exacerbation of congestive heart failure in the setting of sepsis and required BiPAP in the ICU. Clinically has improved significantly at this point. He is euvolemic. Echocardiography has shown improvement in ejection fraction before. He is on Plavix for previous CVA. He has acute hypernatremia and is getting D5W. Monitor I's and o's closely. Overall does not appear to be volume overloaded at this point but with active IV fluids being given to him we need to monitor him closely. Any change in his oxygen demand we will require assessment for congestive heart failure. Encouraged him to drink orally. Unfortunately this is seen with dementia where patients lose their thirst and to not drink water. Thank you for allowing me to participate in the care of your patient. Please feel free to contact me if you have any questions. Procedures Date of Service Date of Service: 03/31/25
[2025-04-01] VITALS (12 sets, daily range): BP systolic 107–155; BP diastolic 57–86; PULSE 57–70; RESP 12–20; TEMP 36.1–36.9; O2SAT 92–99; BMI 21.4
[2025-04-01 07:24] LABS: Hematocrit 38.4 % (42.0-52.0); Hemoglobin 12.6 g/dl (14.0-18.0); Mean Corpuscular HGB Conc 32.8 g/dl (31.0-36.0); Mean Corpuscular Hemoglobin 29.4 pg (27.0-33.0); Mean Corpuscular Volume 89.5 fL (80.0-98.0); NRBC Abs Auto 0.000 X10*3/uL (0.0-0.012); NRBC Pct Auto 0.0 /100WBC (0.0-0.2); Platelet Count 127 X10*3/uL (160-400); Red Blood Count 4.29 X10*6/uL (4.60-5.80); White Blood Count 7.7 X10*3/uL (4.8-10.8)
[2025-04-01 07:32] LABS: Alanine Aminotransferase 23 U/L (0-40); Albumin Level 4.2 g/dL (3.5-5.0); Alkaline Phosphatase 62 U/L (39-117); Anion Gap 12 (12-20); Aspartate Amino Transferase 26 U/L (5-37); Blood Urea Nitrogen 43 mg/dL (9-16); Calcium 8.8 mg/dL (8.4-10.2); Carbon Dioxide 27 mmol/L (22-29); Chloride 103 mmol/L (96-108); Creatinine Clr Calc Pharmacy 24.4; Estimated Glomerular Filt Rate 29; Magnesium 2.1 mg/dL (1.6-2.6); Potassium 3.2 mmol/L (3.3-5.1); Sodium 139 mmol/L (135-145); Total Protein 6.5 g/dL (6.5-8.0)
[2025-04-01] MEDS: Potassium Chloride ER 20 MEQ TAB.ER.PRT 40 MEQ PO (09:14)
--- NOTE | 2025-04-01 11:44 | P.PNIM_ITS ---
Subjective Subjective Date of Service: 04/01/25 Interval History: reporting improvement Physical Exam 2 Vital Signs: Vital Signs: Last Vital Signs Temp 98.4 F 04/01/25 11:01 Pulse 60 04/01/25 11:01 Resp 20 04/01/25 11:01 BP 117/60 04/01/25 11:01 Pulse Ox 95 04/01/25 11:01 O2 Del Method Nasal Cannula 04/01/25 11:01 O2 Flow Rate 2 04/01/25 11:01 FiO2 40 03/29/25 09:00 BMI result Body Mass Index 21.4 GENERAL APPEARANCE: in no acute distress, pleasant. NECK: no carotid bruit, no jugular venous distention. SKIN: no suspicious lesions, warm and dry. HEART: no murmurs, regular rate and rhythm. LUNGS: clear to auscultation bilaterally. ABDOMEN: soft, nontender. EXTREMITIES: no edema. PERIPHERAL PULSES: equal. NEUROLOGIC: No gross deficits, AAO X 3 Objective Data Active Medications Albuterol/Ipratropium (Albuterol/Iprat 2.5/0.5mg 3 Ml Ampul.Neb) 3 ml INHALE RQ4H PRN PRN Reason: Shortness Of Breath Or Wheezing Amiodarone HCl (Amiodarone Hcl 200 Mg Tablet) 200 mg PO DAILY [facility] Last Admin: 04/01/25 09:15 Dose: 200 mg Documented By: KRYSTLE Clopidogrel Bisulfate (Clopidogrel Bisulfate 75 Mg Tablet) 75 mg PO DAILY [facility] Last Admin: 04/01/25 09:14 Dose: 75 mg Documented By: KRYSTLE Heparin Sodium (Porcine) (Heparin Sodium,Porcine 5,000 Unit/Ml Vial) 5,000 unit SUBCUT Q12H [facility] Last Admin: 04/01/25 05:46 Dose: 5,000 unit Documented By: YODIT Meropenem (Meropenem 500 Mg Vial) 500 mg IVPUSH Q12H [facility] Last Admin: 04/01/25 09:15 Dose: 500 mg Documented By: KRYSTLE Metoprolol Tartrate (Metoprolol Tartrate 25 Mg Tablet) 25 mg PO DAILY [facility]; Protocol Last Admin: 04/01/25 09:14 Dose: 25 mg Documented By: KRYSTLE Sodium Chloride (0.9 % Sodium Chloride Flush 3 Ml Syringe) 3 ml IVFLUSH QSHIFT [facility] Last Admin: 04/01/25 09:21 Dose: Not Given Documented By: KRYSTLE Non-Admin Reason: IV Running Labs 04/01/25 06:51 04/01/25 06:51 Labs: Laboratory Results - last 24 hr 03/28/25 04/01/25 04:43 06:51 MCV 89.5 MCH 29.4 MCHC 32.8 RDW 14.2 Plt Count 127 L MPV 10.3 Absolute Nucleated RBC 0.000 Nucleated RBC % (auto) 0.0 Anion Gap 12 Estim Creat Clear Calc 24.4 Estimated GFR 29 Random Glucose 126 H Calcium 8.8 D Magnesium 2.1 Total Bilirubin 0.7 Direct Bilirubin 0.2 AST 26 ALT 23 Alkaline Phosphatase 62 Total Protein 6.5 Albumin 4.2 Ur L.pneumophila Ag Not Detected Assessment and Plan (1) Cardiomyopathy: Status: Acute Plan 79M PMH unspecified dementia, prostate ca, barretts esophagus, hfref, CKD III, htn, hld, CVA, heart block s/p pacer, [facility] with fever due to ecoli uti with bacteremia, overnight then developed acute hypoxic respiratory failure due to acute on chronic systolic chf requiring bipap and icu transfer. diuresed and given antibiotics, downgraded 03/29/25 Severe sepsis due to urinary tract infection with bacteria Culture growing ESBL Ecoli Changed to meropenem, follow up Infectious Disease, on dc ertapenem 1gm daily until 04/13/25, will need bellamy acute hypoxic respiratory failure due to acute on chronic systolic chf resolved, continue metoprolol history of cva plavix vicky on ckd IV likely ATN due to above, monitor nephro following acute hypernatremia resolved dvt prophylaxis - hep sq dnr/sni reason for continued hospitalization:mdr bacteremia Quality Stroke Does the patient have a stroke diagnosis?: No VTE Prior VTE?: No VTE Risk Level:: Medical - moderate - high VTE Device Contraindication: N/A - Device Ordered VTE Drug Contraindication: N/A - Med Ordered
--- NOTE | 2025-04-01 12:01 | MHC.SL.SWA ---
Speech Pathologist Impression: Adequate oropharyngeal swallow function Risk of Aspiration Due to: cognition, recent respiratory compromise Dysphasia Diet Status: Recommend CONTINUE with current diet of NDD3, Thin liquids with intermittent supervision Liquid Consistency and Strategies for Safe Swallow: Liquid Intake Recommendation: Thin Liquid Intake Strategies: Solid Food Consistency: Dietary Recommendations: Chopped/Advanced (NDD3) Additional Modifications to Solid Foods: Oral Medication Intake: Whole with Puree Please contact the pharmacy regarding appropriate crushable or liquid drug formulations that are available whenever modified delivery is recommended. Compensatory Strategies and Precautions to be Taken for Safe Swallow: Sitting Upright (90 deg) Small Bites and Sips Alternate Liquids/Solids Rate of Ingestion Change Supervision While Eating and Drinking for Safe Swallow: Intermittent Supervision Foods to Avoid: Mixed consistencies Swallowing Recommended Treatments: Compens. Strategy Educat. Recommendation for Speech: Inpatient Speech Therapy Comment: Patient seen for dysphagia treatment, patient alert and conversant. Per diet orders, NPO at midnight. RN consulted, patient tolerating diet, poor PO intake noted. Patient given marsha cracker, applesauce and water this date. Patient with timely mastication, adequate cohesion and clearance of small pieces of marsha cracker. Patient continues to require O2 via NC. Patient with no s/sx of penetration/aspiration. Recommend CONTINUE with diet of NDD3 (chopped/advanced), Thin liquids with intermittent supervision. CERTIFIED VEHICLE FIRE INVESTIGATOR to continue to follow. Frequency/Duration: Daily M-F Date Range for Service Req: Timeline to reassess: Brick Machine Operator Clinican/Clinical Fellow: No Supervisory Statement: I have reviewed and agree with the student/clinical fellow's documentation: No Speech Language Pathologist: Barbara Sahni M.A., [facility]-CERTIFIED VEHICLE FIRE INVESTIGATOR
--- NOTE | 2025-04-01 15:44 | P.EN_ITS ---
Documented by User: Sam Vyas NP 04/01/25 15:45 Event Note Date of Service: 04/01/25 Event Note: 5 kinyarwanda x 22 cm bellamy catheter placed via right IJ. Terminates in cavoatrial junction. Flushes and aspirates well. Patient tolerated procedure well. Catheter ok for use. Time Spent With Patient Time: Total time managing care of this patient today __45__ minutes. Documented by User: Andres Waldrop MD 04/12/25 20:47 Event Note Date of Service: 04/12/25
[2025-04-01] MEDS: 0.9 % Sodium Chloride Flush 3 ML SYRINGE IVFLUSH ×2 (17:18→22:13)
--- NOTE | 2025-04-02 00:18 | PC.NURSE ---
Delayed entry: 03/28/25: 2x Albumin 100cc administered per MAR on IV pump. 1st bag initiated at 01:40 at 133.33ml/hr and completed infusion at 02:26. 2nd bag initiated at 03:06 at 133.33ml/hr and completed at 03:52.
[2025-04-02 03:29] VITALS: BP 150/72; PULSE 62; RESP 19; TEMP 36.7
[2025-04-02 04:17] VITALS: BMI 23.2
[2025-04-02 06:56] VITALS: BP 139/68; PULSE 61; RESP 20; TEMP 36.1; O2SAT 95
[2025-04-02 07:51] LABS: PLT CLUMP 1
[2025-04-02 07:53] LABS: Hematocrit 39.5 % (42.0-52.0); Hemoglobin 13.1 g/dl (14.0-18.0); Mean Corpuscular HGB Conc 33.2 g/dl (31.0-36.0); Mean Corpuscular Hemoglobin 29.4 pg (27.0-33.0); Mean Corpuscular Volume 88.6 fL (80.0-98.0); NRBC Abs Auto 0.020 X10*3/uL (0.0-0.012); NRBC Pct Auto 0.3 /100WBC (0.0-0.2); Platelet Count 122 X10*3/uL (160-400); Red Blood Count 4.46 X10*6/uL (4.60-5.80); White Blood Count 7.7 X10*3/uL (4.8-10.8)
[2025-04-02 08:09] LABS: Blood Urea Nitrogen 37 mg/dL (9-16); Calcium 9.2 mg/dL (8.4-10.2); Creatinine Clr Calc Pharmacy 30.9; Estimated Glomerular Filt Rate 35
[2025-04-02 08:19] LABS: Anion Gap 16 (12-20); Carbon Dioxide 20 mmol/L (22-29); Chloride 108 mmol/L (96-108); Potassium 4.1 mmol/L (3.3-5.1); Sodium 140 mmol/L (135-145)
[2025-04-02] MEDS: 0.9 % Sodium Chloride Flush 3 ML SYRINGE IVFLUSH ×2 (08:19→16:56)
--- NOTE | 2025-04-02 09:32 | P.CDIM_ITS ---
PROVIDER RESPONSE TEXT: To clarify, the appropriate diagnosis supported by the clinical indicators: CKD 3 QUERY TEXT: PHYSICIAN'S DOCUMENTATION REQUEST Date of Query: 04/02/2025 09:21 AM EST Patient Name: Clifford Ashby Admit Date: 03/27/2025 Dear Izaiah Sheikh MD, A review of the medical record indicates additional documentation may be needed. Please review below and update the documentation accordingly. Clinical Indicators: H&P 03/27/25 - CKD 3 Progress note 03/30/25 - CKD 3 Progress note 03/31/25 - CKD 4 Progress note 04/01/25 - CLARK on CKD 4 Likely ATN Nephro following. Please clarify which of the following accurately represents the patient's Stage of the noted CKD for consistency: CKD 3 CKD 4 Other (explain) Clinically unable to determine (explain) Thank you, Missy Mendoza, CCS, CDIS Use of terms such as suspected, likely, concern for, or probable (associated with a specific diagnosis that is being evaluated, monitored, or treated as if it exists) are acceptable and can be coded in the inpatient setting, when documented at the time of discharge. Please use your independent medical judgment in providing your response. THIS QUERY IS PART OF THE PERMANENT MEDICAL RECORD
--- NOTE | 2025-04-02 09:55 | PM.DS ---
DS: Providers Provider Date of Service: 04/02/25 Date of admission: 03/27/25 15:51 Date of discharge: 04/02/25 Primary care physician: Charlie Good MD Consults: 03/30/25 17:07 Consult to Nephrology Routine Consulting [place] [facility] Reason for consultation: vicky on ckd ,hypernatremia Has provider been notified: No 03/30/25 17:11 Consult to Cardiology Routine Consulting Provider[place] [facility] Reason for consultation: chf 03/30/25 17:12 Consult to Infectious Diseases Routine Consulting Provider: [facility] Reason for consultation: esbl bacteremia Has provider been notified: No DS: Diagnosis Discharge Diagnosis (1) Cardiomyopathy: Status: Acute DS: Summary Hospital Course Hospital Course: from initial hpi: 79-year-old male with a history of dementia, [facility] On arrival patient had high fever of 104.5, was tachycardic, tachypneic as well as hypoxic. His oxygen saturation was 81% on room air. He was placed on high-flow oxygen and his oxygen saturation improved to the low 90s. He received IV antibiotics, Tylenol suppository and IV fluid and his fever slowly improved. Workup was significant for bibasilar infiltrates on CT chest. Due to underlying dementia patient is unable to provide any significant medical history. hospital course: Patient was admitted for severe sepsis due to urinary tract infection with ESBL E coli bacteremia this was further complicated by acute hypoxic respiratory failure due to acute on chronic systolic CHF requiring BiPAP therapy and ICU transfer. Patient was diuresed and given IV ertapenem. Stabilized and then downgraded to medical floor. Sepsis resolved, hypoxia resolved. Huerta catheter placed and patient will continue ertapenem until 04/13/2025. For acute kidney injury on CKD 3 likely due to ATN from sepsis creatinine improved to baseline prior to discharge. Acute hypernatremia improved with D5W. For history of CVA was continued on Plavix. Patient is now medically stable and he will be discharged back to fdc facility. Time Attestation Discharge Coordination Time (in mins): 37 Quality: Safe Use of Opioids Does Pt have an Active Cancer Diagnosis on the Problem List?: No Quality: Stroke Does the patient have a stroke diagnosis?: No Physical Exam Vital Signs: Vital Signs: Last Vital Signs Temp 97.0 F 04/02/25 06:56 Pulse 61 04/02/25 06:56 Resp 20 04/02/25 06:56 BP 139/68 04/02/25 06:56 Pulse Ox 95 04/02/25 06:56 O2 Del Method Nasal Cannula 04/02/25 06:56 O2 Flow Rate 1 04/02/25 06:56 FiO2 40 04/01/25 15:20 BMI result Body Mass Index 23.2 GENERAL APPEARANCE: in no acute distress, pleasant. NECK: no carotid bruit, no jugular venous distention. SKIN: no suspicious lesions, warm and dry. HEART: no murmurs, regular rate and rhythm. LUNGS: clear to auscultation bilaterally. ABDOMEN: soft, nontender. EXTREMITIES: no edema. PERIPHERAL PULSES: equal. NEUROLOGIC: No gross deficits, AAO X 3 DS: Data Data Completed and Pending Labs on day of discharge: Laboratory Results - last 24 hr 04/02/25 07:23 WBC 7.7 RBC 4.46 L Hgb 13.1 L Hct 39.5 L MCV 88.6 MCH 29.4 MCHC 33.2 RDW 14.0 Plt Count 122 L MPV 9.9 Absolute Nucleated RBC 0.020 H Nucleated RBC % (auto) 0.3 H Sodium 140 Potassium 4.1 D Chloride 108 Carbon Dioxide 20 L Anion Gap 16 BUN 37 H Creatinine 1.87 H Estim Creat Clear Calc 30.9 Estimated GFR 35 Random Glucose 86 Calcium 9.2 Discharge Plan Discharge Anticipated Discharge Date/Time: 03/28/25 06:00 Patient Disposition: Xfer [facility] Discharge Diagnosis: esbl bacteremia Referrals: Physician,Unknown J [Physician, Medical] - 1 Week Discharge Medications: New ertapenem 1 gram recon soln 1 g IV DAILY 12 Days Continued allopurinol 100 mg Tablet 50 mg PO DAILY loratadine 10 mg Tablet 10 mg PO BEDTIME cholecalciferol (vitamin D3) 50 mcg (2,000 unit) Tablet 50 mcg PO DAILY acetaminophen 325 mg Tablet 650 mg PO BID MDD 3g polyethylene glycol 3350 17 gram Powder In Packet 17 g PO DAILY PRN (Reason: Constipation) famotidine 20 mg Tablet 20 mg PO DAILY PRN (Reason: Heartburn) calcium carbonate 500 mg calcium (1,250 mg) Tablet 500 mg PO Q4H MDD 5 tablets PRN (Reason: Heartburn) lactase 3,000 unit Tablet 3,000 unit PO Q1H PRN (Reason: Lactose Intolerance) Rx Instructions: administer with meals and/or snacks TAKE PRIOR TO DAIRY PRODUCTS alum-mag hydroxide-simeth [Mag-Al Plus] 200-200-20 mg/5 mL Suspension 30 ml PO TID PRN (Reason: Heartburn) Rx Instructions: administer between meals and at bedtime ondansetron 4 mg Tablet,Disintegrating 4 mg PO Q6H PRN (Reason: Nausea And Vomiting) acetaminophen 325 mg Tablet 650 mg PO Q4H MDD 3g PRN (Reason: Pain (Scale Score 1-3)) ferrous sulfate 325 mg (65 mg iron) Tablet 325 mg PO DAILY metoprolol succinate 25 mg Tablet Extended Release 24 Hr 25 mg PO DAILY ipratropium-albuterol 0.5 mg-3 mg(2.5 mg base)/3 mL Solution For Nebulization 3 ml INHALATION Q4H PRN (Reason: Shortness Of Breath Or Wheezing) acetaminophen 650 mg Suppository 650 mg [place] Q6H MDD 3g PRN (Reason: Fever Or Pain) multivitamin Tablet 1 tab PO DAILY thiamine HCl (vitamin B1) 100 mg Tablet 100 mg PO DAILY clopidogrel 75 mg Tablet 75 mg PO DAILY 90 Days Qty: 90 0RF atorvastatin 40 mg Tablet 40 mg PO BEDTIME 90 Days Qty: 90 0RF pantoprazole 40 mg tablet,delayed release (DR/EC) 40 mg PO BID@0630,1630 tamsulosin [Flomax] 0.4 mg capsule 0.4 mg PO BEDTIME sertraline 50 mg tablet 50 mg PO DAILY amiodarone 200 mg tablet 200 mg PO DAILY mirtazapine 30 mg tablet 30 mg PO BEDTIME Discontinued amlodipine 2.5 mg Tablet 2.5 mg PO DAILY 90 Days Qty: 90 0RF Protocol: Hold for SBP< HOLD for SBP < : 90 Discharge Orders: Discharge Order (Routine); Ordered 04/02/25 Ordered By: Izaiah Sheikh Diet: NDD3 solids, thin liq Activity on Discharge: As tolerated Stand Alone Forms: Patient Portal Discharge page Print Language: Hungarian Care Plan Goals: recovery Health Concerns: esbl ecoli Plan of Treatment: ertapenem until 04/13/25 Assessment: see above
--- NOTE | 2025-04-02 10:40 | MHC.CM.PN ---
HERMELINDA spoke with [facility] Nursing Parachute Crown Sewer/Eli @ [phone] to let her know that Patient is ready to return today. Per Eli's request, the dc summary has been faxed to her at [phone]; she is confirming that the IV ABX Patient will be returning on is available. HERMELINDA awaits a return call from Eli. is aware.
[2025-04-02 10:56] VITALS: BP 133/61; PULSE 60; RESP 20; TEMP 36.3; O2SAT 97
--- NOTE | 2025-04-02 12:38 | MHC.CM.PN ---
Patient has been medically cleared for dc to LTC today. Patient will return to the [facility] [place] today at 5:30 PM, via [facility]. CM met with Patient at bedside and addressed IMM with him verbally r/t Contact precautions(original was given to Patient and a copy has been placed on the chart). Per Patient's request, HERMELINDA spoke with Daughter/Anastasia @ [phone] and informed her of the dc plan., RN and Eli from the 's Home are aware of the dc plan
--- NOTE | 2025-04-02 15:14 | MHC.SL.SWA ---
Speech Pathologist Impression: Risk of Aspiration Risk of Aspiration Due to: Hx dementia Dysphasia Diet Status: UPGRADE to REGULAR solids, continue on THIN liquids (SINGLE SIPS ONLY, NO STRAWS) Liquid Consistency and Strategies for Safe Swallow: Liquid Intake Recommendation: Thin Solid Food Consistency: Dietary Recommendations: Regular Additional Modifications to Solid Foods: Diet order adjusted by BENEFITS CLERK. Per CM, patient will return to the [facility] Home today at 5:30 PM Oral Medication Intake: Whole with Puree Please contact the pharmacy regarding appropriate crushable or liquid drug formulations that are available whenever modified delivery is recommended. Compensatory Strategies and Precautions to be Taken for Safe Swallow: Sitting Upright (90 deg) Small Bites and Sips Alternate Liquids/Solids Rate of Ingestion Change Supervision While Eating and Drinking for Safe Swallow: Intermittent Supervision Foods to Avoid: Mixed consistencies Swallowing Recommended Treatments: Compens. Strategy Educat. Recommendation for Speech: ST through LTC facility Instructional Material Director Clinican/Clinical Fellow: No Supervisory Statement: I have reviewed and agree with the student/clinical fellow's documentation: No Speech Language Pathologist: Aida Walker M.A., CCC-BENEFITS CLERK
[2025-04-02 15:30] VITALS: BP 124/57; PULSE 61; RESP 16; TEMP 37.1; O2SAT 94
--- NOTE | 2025-04-09 00:05 | PM.SEPBOLA4 ---
Sepsis Bolus Exclusion Sepsis Bolus Exclusion CHF/Renal Failure Date of Occurrence: 03/28/25 Time of Occurrence:: 01:48 This patient met severe sepsis criteria due to the following condition(s):: Lactate>=4mmol/L In my clinical judgement the administration of 30 ml/kg of crystalloid would be detrimental to this patient due to the patient's following conditions:: NYHA class III or IV Heart Failure(symptoms with low exertion or rest) and Concern for fluid overload Replace the 30 mls/kg with (Zero amount not acceptable and all fluids for severe sepsis must be given at GREATER than 125 mls/hr) *Note: One of the bearden must be documented Colloids amount given in mls:: 200 At a rate of (must be > 125 cchr):: 133
== END 2025-04-02 18:00 | disposition skilled nursing facility (03) | DRG 871 ==
LOC: HO.ED 14:12 → HO.EDOVER 15:59 → HO.IMC 19:46 → HO.ICU 03-28 06:39 → HO.IMC 03-29 19:10
PROVIDERS: Hospitalist; Internal Medicine; Internal Medicine Critical Care Medicine; Internal Medicine Pulmonary Disease; Nurse Practitioner Family; Admitting Provider Physician Assistant Medical; Emergency Provider Emergency Medicine Emergency Medical Services; PCP Internal Medicine; Visit Provider Internal Medicine
DX: A41.9 Sepsis, unspecified organism (principal); G92.8 Other toxic encephalopathy; I50.23 Acute on chronic systolic (congestive) heart failure; J96.01 Acute respiratory failure with hypoxia; N17.0 Acute kidney failure with tubular necrosis; I13.0 Hypertensive heart and chronic kidney disease with heart failure and stage 1 through stage 4 chronic kidney disease, or unspecified chronic kidney disease; E87.0 Hyperosmolality and hypernatremia; N39.0 Urinary tract infection, site not specified; Z16.12 Extended spectrum beta lactamase (ESBL) resistance; R65.20 Severe sepsis without septic shock; N18.30 Chronic kidney disease, stage 3 unspecified; K21.9 Gastro-esophageal reflux disease without esophagitis; D69.6 Thrombocytopenia, unspecified; I45.9 Conduction disorder, unspecified; Z66 Do not resuscitate; G30.9 Alzheimer's disease, unspecified; N40.0 Benign prostatic hyperplasia without lower urinary tract symptoms; K74.60 Unspecified cirrhosis of liver; B96.20 Unspecified Escherichia coli [E. coli] as the cause of diseases classified elsewhere; F02.80 Dementia in other diseases classified elsewhere, unspecified severity, without behavioral disturbance, psychotic disturbance, mood disturbance, and anxiety; Z20.822 Contact with and (suspected) exposure to COVID-19; Z85.46 Personal history of malignant neoplasm of prostate; Z95.0 Presence of cardiac pacemaker; Z79.02 Long term (current) use of antithrombotics/antiplatelets; Z79.899 Other long term (current) drug therapy
CPT/HCPCS: 36415; 36558; 36600; 71045; 71250; 74176; 76705; 76937; 80048; 80053; 80076; 81001; 82040; 82550; 82803; 82947; 83605; 83690; 83735; 83880; 84100; 84145; 84484; 85025; 85027; 85610; 87040; 87077; 87086; 87088; 87186; 87205; 87449; 87502; 87633; 87635; 87637; 87640; 87641; 87899; 92526; 92610; 93005; 93306; 94660; 94799; 99285; C1751; C1769; J0131; J0696; J1171; J1271; J1642; J1644; J1836; J1938; J2003; J2185; J2405; J2543; J2919; J3010; P9047; Q9957

== ENCOUNTER → 2025-03-27 12:52 | Outpatient (BNV) | payer MEDICARE, SELFPAY | PROVIDERS: Admitting Provider Physician Assistant Medical; Emergency Provider Emergency Medicine Emergency Medical Services; Visit Provider Internal Medicine | DX: R94.31 Abnormal electrocardiogram [ECG] [EKG] (principal); Z95.0 Presence of cardiac pacemaker | CPT/HCPCS: 93010 ==

== ENCOUNTER 2025-03-27 15:51 | Outpatient (BNV) | payer MEDICARE, SELFPAY | END 2025-03-28 00:30 | PROVIDERS: Admitting Provider Physician Assistant Medical; Emergency Provider Emergency Medicine Emergency Medical Services; Visit Provider Radiology Diagnostic Radiology | DX: R10.11 Right upper quadrant pain (principal); R50.9 Fever, unspecified; R74.01 Elevation of levels of liver transaminase levels | CPT/HCPCS: 76705 ==

== ENCOUNTER 2025-03-27 15:51 | Outpatient (BNV) | payer MEDICARE, SELFPAY | END 2025-04-01 14:13 | PROVIDERS: Admitting Provider Physician Assistant Medical; Emergency Provider Emergency Medicine Emergency Medical Services; PCP Internal Medicine | DX: A41.51 Sepsis due to Escherichia coli [E. coli] (principal); R65.20 Severe sepsis without septic shock; N39.0 Urinary tract infection, site not specified | CPT/HCPCS: 76937 ==

== ENCOUNTER 2025-03-27 15:51 | Outpatient (BNV) | payer MEDICARE, SELFPAY | END 2025-03-29 07:00 | PROVIDERS: Admitting Provider Physician Assistant Medical; Emergency Provider Emergency Medicine Emergency Medical Services; Visit Provider Internal Medicine Cardiovascular Disease | DX: I51.89 Other ill-defined heart diseases (principal); J96.90 Respiratory failure, unspecified, unspecified whether with hypoxia or hypercapnia; I35.8 Other nonrheumatic aortic valve disorders | CPT/HCPCS: 93306 ==

== ENCOUNTER → 2025-03-27 15:51 | Outpatient (BNV) | payer MEDICARE, SELFPAY | PROVIDERS: Admitting Provider Physician Assistant Medical; Emergency Provider Emergency Medicine Emergency Medical Services; PCP Internal Medicine; Visit Provider Internal Medicine Cardiovascular Disease | DX: I50.9 Heart failure, unspecified (principal) | CPT/HCPCS: 99223 ==

== ENCOUNTER → 2025-03-27 15:51 | Outpatient (BNV) | payer MEDICARE, SELFPAY | PROVIDERS: Admitting Provider Physician Assistant Medical; Emergency Provider Emergency Medicine Emergency Medical Services; Visit Provider Internal Medicine | DX: J18.9 Pneumonia, unspecified organism (principal) | CPT/HCPCS: 99223; 99232; 99233; 99499 ==

== ENCOUNTER → 2025-03-27 15:51 | Outpatient (BNV) | payer MEDICARE, SELFPAY | PROVIDERS: Admitting Provider Physician Assistant Medical; Emergency Provider Emergency Medicine Emergency Medical Services; Visit Provider Internal Medicine Critical Care Medicine | DX: I50.9 Heart failure, unspecified (principal); J96.01 Acute respiratory failure with hypoxia; J18.9 Pneumonia, unspecified organism | CPT/HCPCS: 99291 ==

== ENCOUNTER → 2025-03-27 15:51 | Outpatient (BNV) | payer MEDICARE, SELFPAY | PROVIDERS: Admitting Provider Physician Assistant Medical; Emergency Provider Emergency Medicine Emergency Medical Services; Visit Provider Internal Medicine Pulmonary Disease | DX: R78.81 Bacteremia (principal); N39.0 Urinary tract infection, site not specified; J81.1 Chronic pulmonary edema; G30.9 Alzheimer's disease, unspecified; F02.80 Dementia in other diseases classified elsewhere, unspecified severity, without behavioral disturbance, psychotic disturbance, mood disturbance, and anxiety | CPT/HCPCS: 99232 ==

== ENCOUNTER 2025-04-05 06:19 | Outpatient (REF) | payer MEDICARE, SELFPAY ==
--- OUTSIDE RECORDS SUMMARY | 2023-10-30 10:00 | XMS_ITS ---
Author Organization [facility] Address [address] [place] [address] Care Team Providers Care Oil Lease Operator Name Role Phone Tatum MURRELL, Jamison Primary Care Provider Unavailab Lc William [phone] REASON FOR VISIT barretts esophagus Encounters Encounter Location Date Provider Diagnosis [facility] [address] [place] [phone] 10/30/2023 Lc Avalos Plan Of Treatment No Information Progress Notes * MARIANNE DAVILADOB: 4 (79 yo M)Acc No.[id number]:10/30/2023 Progress Notes Patient: MARIANNE DELGADO Provider: Lissette Avalos MD :1945 A ge:78 Y S ex:Male Date:10/30/2023 Address:[place], [address] [place], [place] [id number] Pcp:Jamison Winn MD Subjective: * Chief Complaints: * 1 . Barretts esophagus. * Medical History: Objective: * Vitals: Assessment: Plan: * Treatment: * * The named appointment provid er may or may not be the originator of this progress note, and it is not deemed complete until electronically signed by the appointment provider. Sign off status: Pending * Provider: Lissette Avalos MD Date: 0 10/30/2023 Generated for Néstor akers/Earle/eTransmitting on: 1 06/05/2024 06:25 AM EST
--- OUTSIDE RECORDS SUMMARY | 2025-01-27 08:00 | XMS_ITS ---
Author Name [facility] Organization [facility] Address [address] [place] [address] Care Team Providers Care Fire Control System Installer Name Role Phone JAMISON WINN Primary Care Provider Unavailabl e Insurance Providers: All historical and current Section Date Range: From patient's date of to the date document was created. This section includes the names of all active insurance providers for the patient. Insurance Provider Type of Coverage Plan Name Start of Policy Coverage End of Policy Coverage Group Number Member ID Insurance Provider's Telephone Number Policy Laguna's Name Patient's Relationship to Policy Laguna MEDICARE (WNR) MEDICARE (M) PART B Oct 25, 2017 PART B [id number] [phone] JACKLYN DAVILA III, RD PATIENT MEDICARE (WNR) MEDICARE (M) PART A Jan 25, 2009 PART A [id number] JACKLYN DAVILA III, RD PATIENT MEDICARE (WNR) MEDICARE (M) PART A Jan 25, 2009 PART A [id number] JCAKLYN DAVILA III, RD PATIENT MEDICARE (WNR) MEDICARE (M) PART A September 24, 2008 PART A [id number] JACKLYN DAVILA III, RD PATIENT MEDICARE (WNR) MEDICARE (M) PART A September 24, 2008 PART A [id number] JACKLYN DAVILA III, RD PATIENT Selected Encounter This section includes the information on record at MD for the Encounter. Date/Time Encounter Type Encounter Description Reason Provider Source Jan 27, 2025 01:00 PM OFFICE O/P EST LOW 20 MIN PRIMARY CARE/MEDICINE ICD-10-CM F03.90 Unsp dementia, unsp severity, without beh/psych/mood /anx JAMISON WINN Eboni Encounter Template Text not used by MD Assessments - Encounter Diagnoses This section includes the primary and secondary diagnoses documented for the Encounter. Date/Time Primary/Secondary Diagnosis Diagnosis Name Provider Source Jan 27, 2025 01:33 PM PRIMARY Unsp dementia, unsp severity, without beh/psych/mood/ anx [facility] WIN[facility] Vital Signs: All taken on the encounter date This section contains inpatient and outpatient Vital Signs collected on the date of the Encounter. Date/Time Temperature Pulse Blood Pressure Respiratory Rate SP02 Pain Height Weight Body Mass Index Source Jan 27, 2025 01:07 PM 98.5 F 61 /min 136/62 mm[Hg] 16 /min 93 % 0 MD [facility] Social History: Smoking Status (Most current) and Tobacco Use (All prior to encounter date) This section includes the most current, and the historical, smoking and tobacco- related health factors from the MD facility where the Encounter took place. Current Smoking Status This section includes the most current smoking, or tobacco-related health factor, from the MD facility where the Encounter took place. Date/Time Current Smoking Status Comment Rubén tomas Jan 27, 2025 01:00 PM VA-TOBACCO USE FOR LISA CIGARETTES [facility] Tobacco Use History This section includes a history of the smoking, or tobacco-related health factors, that were collected on or before the date of the Encounter. The data comes from the MD facility where the Encounter took place. Date/Time Smoking Status/Tobac co Use Comment Facility Jan 27, 2025 01:00 PM VA-TOBACCO USE FORMER CIGARETTES [place] [facility] [place] [facility] Jan 22, 2024 01:00 PM VA-TOBACCO FORMER USER MD [facility] [place] [facility] Jan 22, 2024 01:00 PM VA-TOBACCO QUIT 15 YRS OR MORE MD [facility] [place] [facility] Jan 16, 2023 01:00 PM VA-TOBACCO FORMER USER MD [facility] [place] [facility] Jan 16, 2023 01:00 PM VA-TOBACCO QUIT 15 YRS OR MORE [place] [facility] [place] [facility] Jan 15, 2022 02:00 PM VA-TOBACCO FORMER USER MD [facility] [place] [facility] Jan 15, 2022 02:00 PM VA-TOBACCO QUIT 15 YRS OR MORE [place] [facility] [place] [facility] Jan 18, 2021 02:00 PM VA-TOBACCO FORMER USER MD [facility] [place] [facility] Jan 18, 2021 02:00 PM VA-TOBACCO QUIT 15 YRS OR MORE [facility] [place] [facility] May 07, 2018 11:06 AM VA-TOBACCO FORMER USER [facility] May 07, 2018 11:06 AM VA-TOBACCO QUIT 15 YRS OR MORE [place] [facility] [place] [facility] Jun 19, 2017 03:13 PM LIFETIME NON-TOBACCO USER [facility] [place] [facility] Jun 07, 2016 01:16 PM QUIT TOBACCO USE > 7 YEARS AGO pt quit in 1974 MD [facility] [place] [facility] Jun 21, 2015 10:16 AM QUIT TOBACCO USE > 7 YEARS AGO pt states stoppeddsmoking in 1974. [facility] Nov 03, 2012 02:51 PM LIFET[facility]ACCO [facility] Advance Directives: All historical and current Section Date Range: From patient's date of to the date document was created. This section includes ALL of a patient's completed or amended MD Advance and Rescinded Directives. The entries below indicate that a directive exists for the patient, but an actual copy is not included with this document. The data comes from all MD facilities. Date Advance Directives Provider Source Jul 12, 2017 ADVANCE DIRECTIVE JAMISON WINN [facility] Encounter Notes: All associated encounter notes This section contains the clinical notes associated to the Encounter. Date/Time Encounter Note(s) Provider Source Jan 27, 2025 01:29 PM PHYSICIAN NOTE: LOCAL TITLE: NOTE STANDARD TITLE: PHYSICIAN NOTE DATE OF NOTE: JAN 27, 2025@13:29 ENTRY DATE: JAN 27, 2025@13:29:23 AUTHOR: JAMISON WINN EXP COSIGNER: URGENCY: STATUS: COMPLETED Patient Name: MARIANNE DAVILA III VITALS: Patient temperature: 98.5 F [36.9 C] (01/27/2025 13:07) Blood pressure: 136/62 (01/27/2025 13:07) Patient height: 69 in [175.3 cm] (01/22/2024 12:58) Patient weight: 172.3 lb [78.15 kg] (01/22/2024 12:58) Patient BMI: BMI: 25.5 Patient pulse: 61 (01/27/2025 13:07) Patient respiration: 16 (01/27/2025 13:07) Patient Pulse Oximetry: 93% (01/27/2025 13:07) Pain Ratin (01/27/2025 13:07) Active VA Medications: Active Outpatient Medications (including Supplies): Active Non-VA Medications Status 1) Non-VA ATORVASTATIN CALCIUM 40MG TAB 20MG BY MOUTH AT ACTIVE BEDTIME 2) Non-VA FOLIC ACID 1MG TAB 1MG BY MOUTH EVERY DAY ACTIVE 3) Non-VA METOPROLOL SUCCINATE 25MG SA TAB 25MG BY MOUTH EVERY ACTIVE DAY 4) Non-VA MIRTAZAPINE 30MG TAB 15MG BY MOUTH EVERY DAY ACTIVE 5) Non-VA PANTOPRAZOLE NA 40MG EC TAB 40MG BY MOUTH EVERY DAY ACTIVE Remote Medications: No Active Remote Medications for this patient recruiting specialist note Chief complaint: Dementia All primary care from INFECTION CONTROL COORDINATORFeroz Greenberg at [facility] History of present illness Long-term resident of [facility]. Feels well today with no complaints. No active symptoms. Patient is here with nurse. physical examination Well-developed well-nourished male no acute distress coronary no murmur Lungs clear No peripheral edema Assessment and plan: 1. Dementia: Receiving care in [place] Plan: Continue above Follow-up 1 year recall Medication Reconciliation: Outpatient: Has the patient been taking medications as documented in the EMLR? YES: The patient has been taking medications as documented in the EMLR. Essential Medication List for Review used to complete this medication reconciliation. INCLUDED IN THIS LIST: Alphabetical list of active outpatient prescriptions dispensed from this MD (local) and dispensed from another VA or DoD facility (remote) as well as inpatient orders (local, pending and active), local clinic medications, locally documented non-VA medications, and local prescriptions that have or been discontinued in the past 90 days. - All changes in medications, including all non-VA/Herbal/OTC medications were entered into CPRS. - If there were any medications the patient should no longer take, they were discontinued. - The patient/caregiver was instructed to update this list, discard old lists, and take this list to the next appointment, whether with a VA or non-VA provider. /doug/ Jamison Winn MD Staff Physician Signed: 01/27/2025 13:33 JAMISON WINN MD [facility] [place] [facility] Jan 27, 2025 01:05 PM PREVENTIVE MEDICIN E NURSING NOTE: LOCAL TITLE: CLINICAL REMINDERS/NURSING STANDARD TITLE: PREVENTIVE MEDICINE NURSING NOTE DATE OF NOTE: JAN 27, 2025@13:05 ENTRY DATE: JAN 27, 2025@13:06 AUTHOR: ELENA MENDEZ EXP COSIGNER: URGENCY: STATUS: COMPLETED Suicide Screen: C-SSRS Screening [place] Suicide Severity Rating Scale (C-SSRS) screener 1. Over the past month, have you wished you were or wished you could go to sleep and not wake up? No 2. Over the past month, have you had any actual thoughts of killing yourself? No 3. Over the past month, have you been thinking about how you might do this? Response not required due to responses to other questions. 4. Over the past month, have you had these thoughts and had some intention of acting on them? Response not required due to responses to other questions. 5. Over the past month, have you started to work out or worked out the details of how to kill yourself? Response not required due to responses to other questions. 6. If yes, at any time in the past month did you intend to carry out this plan? Response not required due to responses to other questions. 7. In your lifetime, have you ever done anything, started to do anything, or prepared to do anything to end your life (for example, collected pills, obtained a gun, gave away valuables, went to the roof but didn't jump)? No 8. If YES, was this within the past 3 months? Response not required due to responses to other questions. Homelessness/Food Insecurity Screen: In the past 2 months, have you been living in stable housing that you own, rent, or stay in as part of a household? Yes - Living in stable housing. Are you worried or concerned that in the next 2 months you may NOT have stable housing that you own, rent, or stay in as part of a household? No - Not worried about housing near future The reports the following: Within the past 12 months, you worried whether your food would run out before you got money to buy more. Never true Within the past 12 months, the food you bought just didn't last and you didn't have money to get more. Never true Depression Screening: Perform PHQ-2 A PHQ-2 screen was performed. The score was 0 which is a negative screen for depression. Over the past two weeks, how often have you been bothered by the following problems? 1. Little interest or pleasure in doing things Not at all 2. Feeling down, depressed, or hopeless Not at all Falls & Incontinence Screen: Falls Screen: During the past 12 months, did the patient report any falls? 4. No falls within the past year. Incontinence Screen: During the past 12 months, has the patient has any characteristics of incontinence (ability, voiding, leakage, etc.)? No incontinence. Tobacco Use Screening: The patient is a former cigarette smoker. The patient has never used other types of tobacco. Alcohol Use Screen (AUDIT-C): Alcohol Screen: SCREEN FOR ALCOHOL (AUDIT-C) An alcohol screening test (AUDIT-C) was negative (score=0). 1. How often did you have a drink containing alcohol in the past year? Consider a drink to be a 12 ounce can or bottle of regular beer, 8 ounces of malt liquor, a 5 ounce glass of table wine, or a 1.5 ounce shot of liquor (like scotch, gin, or vodka). Never 2. How many drinks containing alcohol did you have on a typical day when you were drinking in the past year? Response not required due to responses to other questions. 3. How often did you have six or more drinks on one occasion in the past year? Response not required due to responses to other questions. /doug/ ELENA MENDEZ LPN License Practical Nurse Signed: 01/27/2025 13:07 ELENA MENDEZ [facility]
--- OUTSIDE RECORDS SUMMARY | 2025-04-05 00:23 | XMS_ITS | Continuity of Care Document ---
Author Name [facility] Organization [facility] Care Team Providers Care Development Intern Name Role Phone [facility] Unavailable Unavailable Problems Combined list of problems from Department of Defense and Veterans Affairs facilities. It does not include entries that were removed or entered in error. Problem Status Onset Date Problem Type Date of Resolution Comments Source CAD - Coronary Artery Disease (SCT 54985911) Active 05/27/19 24 Condition Mar 08, 2024 Entered By: AMAURY SAAVEDRA RD Comment: [place] [facility] Dementia (SCT 19977021) Active 05/27/19 19 Condition Jan 18, 2021 [...] [facility] Hypercholesterolemia (SNOMED CT 09172846) Active 05/27/19 13 Condition [facility] Alcoholic fatty liver disease Active Condition [facility] Essential hypertension Active Condition [facility] Hypertension * (ICD-9-CM 401.9) Active Condition [facility] Diagnosis: ICD-10-CM F03.90 Unsp dementia, unsp severity, without beh/psych/mood/anx Active Diagnosis [facility] Medications Combined list of outpatient medications from [facility] and [facility] facilities.Medications provided include 1) outpatient medications from the last 15 months, and 2) patient-reported medications. Medication Details Route Status Indication(s) Patie nt Instructions Prescription Expires Prescription Number Last Dispense Date Ordering Provider Order Date Order Qty Source FOLIC ACID 1MG TAB TAKE ONE TABLET BY MOUTH EVERY DAY ORAL ACTIVE KERI,HOW ILDEFONSO D 2017 [facility] METOPROLOL SUCCINATE 25MG TAB,SA TAKE ONE TABLET BY MOUTH EVERY DAY ORAL ACTIVE SAAVEDRA,HOW ILDEFONSO D 2017 [facility] MIRTAZAPINE 30MG TAB TAKE ONE-HALF TABLET BY MOUTH EVERY DAY ORAL ACTIVE SAAVEDRA,HOW ILDEFONSO D 2017 [facility] PANTOPRAZOL E NA 40MG TAB,EC TAKE ONE TABLET BY MOUTH EVERY DAY ORAL ACTIVE SAAVEDRA,HOW ILDEFONSO D 2017 [facility] Allergies, Adverse Reactions, Alerts Combined list of allergies from [facility] and [facility] facilities. It does not include entries that were removed or entered in error. Substance Category Reaction Severity Reaction type Status Date Reported Comments Source BACLOFEN Propensity to adverse reactions to drug (finding) Weakness present active 3 [facility] LISINOPRIL Propensity to adverse reactions to drug (finding) Cough active 3 [facility] SCALLOPS Propensity to adverse reactions to substance (finding) Eruption active 8 [facility] SILDENAFIL Propensity to adverse reactions to drug (finding) Headache active 4 [facility] Immunizations Combined list of available immunizations from the [facility] and [facility] facilities. Immunization Series Date Given Administered By Site Reaction Lot Number CVX Code Drug Skin Lifter Bacon Status Comments Source INFLUENZA, UNSPECIFIED FORMULATION 2021 88 complet ed Completed Series, HISTORICA L INFORMATI ON - FROM OTHER REGISTRY, [facility] COVID-19 (IMASTE), MRNA, LNP-S, PF, 30 MCG/0.3 ML DOSE [...] 136 01/27/2025 13:07:33 [facility] DIASTOLIC BLOOD PRESSURE 62 01/27/2025 13:07:33 [facility] PULSE OXIMETRY 93 % 01/27/2025 13:07:33 [facility] [...] [facility] En[facility] [id number] 11/04 [facility] Encounter [id number] 01/14 [facility] OFFICE O/P EST SF 10 MIN [id number] Diagnos is: ICD-10- CM F03.90 Unsp dementi a, unsp severit y, without beh/psy ch/mood /anx AMAURY SAAVEDRA RD D 01/21 [facility] Encounter [id number] 03/02 [facility] Encounter [id number] 03/08 [facility] Encounter [id number] 05/07 [facility] Encounter [id number] 05/21 [facility] Encounter [id number] 06/10 [facility] Encounter [id number] 07/10 [facility] Encounter [id number] 12/12 [facility] Encounter [id number] 12/16 [facility] OFFICE O/P EST LOW 20 MIN [id number] Diagnos is: ICD-10- CM F03.90 Unsp dementi a, unsp severit y, without beh/psy ch/mood /anx AMAURY SAAVEDRA RD 01/27 [facility] En[facility] [id number] 02/16 [facility] En[facility] [id number] 03/24 [facility] Social History Combined list of available smoking, tobacco, and other social history from Department of Defense and Veterans Affairs facilities. Social History Type Response Date Comment Source Tobacco smoking status [facility] VA-TOBACCO USE FORMER CIGARETTES 01/27/2025 [facility] History of tobacco use VA-TOBACCO NEVER USED OTHER TYPE 01/27/2025 [facility] History of tobacco use [place]-TOBACCO FORMER USER 01/22/2024 [facility] History of tobacco use [place] FORMER USER 01/16/2023 [facility] History of tobacco use [place]-TO[place] FORMER USER 01/18/2021 [facility]/07/2018 [facility] History of tobacco use LIFETIME NON-TOBACCO USER 06/19/2017 [facility] History of tobacco use QUIT TOBACCO USE > 7 YEARS AGO 06/07/2016 pt quit in 1974 [facility] History of tobacco use QUIT TOBACCO USE > 7 YEARS AGO 06/21/2015 pt states stoppeddsmoking in 1974. [facility] History of tobacco use LIFETIME NON-TOBACCO USER 11/03/2012 [facility] Advance Directives List of completed, amended, or rescinded Advance Directives on record at Department of [facility] facilities. An actual copy of the Directive is not included. Date Advance Directive Provider Source 07/12/2017 ADVANCE DIRECTIVE JULIA SAAVEDRA [facility]
[2025-04-05 06:23] LABS: MANUAL DIFF FLAG NO
--- OUTSIDE RECORDS SUMMARY | 2025-04-05 06:24 | XMS_ITS | Clinical Summary ---
Author Organization [facility] Address [address] [place] [address] Care Team Providers Care Ditch Worker Name Role Phone Pcp, No Primary [...] drink = 0.6 oz pur e alcohol) [facility] Utilities Answer Date Recorded In the past [...] in the past [address] [facility], were you homeless or living in a [...] this topic Medical Devices Implanted Type Area Mechanical Meter Tester Device Identifier Shelf Expiration Date Model / Serial / Lot [id number] Lead Pacing 58cm 6fr Hlx Ecrdm Bipolar Actfx Xtd Is 1 Tndrl - [id number] Implanted:Qty : 1 on 09/24/2024 by Lonnie Mehta MD at [facility] Lead N/A: Heart [employer] [id number] 06/26/[id number] / [id number] / Lead Pacing 52cm 6fr Hlx Ecrdm Bipolar Actfx Is-1 Conn Xtd - [id number] Implanted:Qty : 1 on 09/24/2024 by Lonnie Mehta MD at [facility] Lead N/A: Heart [employer] [id number] 06/26/2027 / [id number] / [id number] Pacemaker Cardiac Thk6mm Assurity Mri 2 Chamber Pls Gntr - [id number] Implanted:Qty : 1 on 09/24/2024 by Lonnie Mehta MD at [facility] Pacemaker Left: Chest Wall [employer] [id number] 01/24/2026 [id number] / [id number] / [place] [id number] Advance Directives Documents on File Type Date Recorded Patient Wolf Hunter Expl anation Advance Directive-Scan 2024 1:55 PM [...] Decision Thoroughly Discussed with: Legally Auth orized Wolf Hunter Name of Legally Authorized Wolf Hunter: Yoon soriano * DNR Date Activated Date Inactivated Comments 09/22/2024 3:16 AM 09/24/2024 11:27 AM Question Answer Comments Decision thoroughly discussed with: Sherly ent arrived with [place] State [place] DNR Transfer form Care Teams Ditch Worker Relationship Specialty Start Date End Date Pcp, No PCP - General General Medicine 11/01/24
--- OUTSIDE RECORDS SUMMARY | 2025-04-05 06:25 | XMS_ITS | Encounter Summary ---
Author Organization [employer] Address [address] [facility] 7[address] [place] [address] Care Team Providers Care Engagement Manager Name Role Phone Unavailable Primary Care Provider Unavailabl e Encounter Details Date Type Department Care Team (Late st Contact Info) Description 05/03/2023 Abstract [facility] [address] [place] [address] Robin Pastor, ANEESH [address] [place] [address] Social History Tobacco Use Types Packs/Day Years [...]
--- OUTSIDE RECORDS SUMMARY | 2025-04-05 06:25 | XMS_ITS | Patient Health Record ---
Author Organization [facility] Address [address] [place] [address] Care Team Providers Care Cook Mayonnaise Name Role Phone Jamison Winn MD Primary Care Provider Lc Coronado [phone] Allergies Allergen (clinical drug ingredient) Drug/Non Drug [...] Status W/U Status Risk Notes Problem Gallstones (457400864) Gallstones (K80.20) Active confirmed Problem Cirrhotic (177622194) Cirrhosis (K74.60) Active confirmed Problem Alcoholic cirrhosis of liver (967722594) Alcoholic cirrhosis of liver (K70.30) Active confirmed Problem Hoffman esophagus (912623170) 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 Problem Gastroesophageal reflux disease (disorder) (186128733) Chronic GERD (K21.9) Active confirmed Vital Signs Temperature 97.5 degrees Fahrenheit 02/16/2025 Blood pressure diastolic 01 mm Hg 02/16/2025 Height 5Ft 9 In in 02/16/2025 Blood pressure systolic 001 mm Hg 02/16/2025 Weight 168.0 lbs 02/16/2025 BMI 24.81 kg/m2 02/16/2025 Encounters Encounter Location Date Provider Diagnosis [facility] [address] [place] [address] 02/16/2025 Lc Avalos Chronic GERD K21.9 ; Hoffman esophagus K22.70 and Gallstones K80.20 [facility] [address] [place] [address] 02/10/2025 Lc Avalos Assessments Encounter Date Diagnosis [...] for allowing me to have participated in [facility]. Please do not hesitate to [...] for allowing me to have participated in [facility]. Please do not hesitate to contact me if I can be of any further assistance in the future. 02/16/2025 Gallstones (ICD-10 - K80.20) You should be referred back to the surgeon at [facility] if you develop any right [...] [place] [address] [place] [address] [phone] [id number] MARIANNE DAVILA Self - patient is the [...] Surgery Date(Month/Year) [facility]ctomy at [facility]
--- OUTSIDE RECORDS SUMMARY | 2025-04-05 06:25 | XMS_ITS | Encounter Summary ---
Author Organization [employer] Address [address] [facility] 7t [place] [address] Care Team Providers Care Vat House Supervisor Name Role Phone Unavailable Primary Care Provider Unavailabl e Encounter Details Date Type Department Care Team (Latest Contact Info) Description 01/03/2022 Abstract [facility] CONVERSIONS Dental, Provider, DDS Social [...]
--- OUTSIDE RECORDS SUMMARY | 2025-04-05 06:25 | XMS_ITS | Encounter Summary ---
Author Organization [employer] Address [address] [facility] 7t [place] [address] Care Team Providers Care Senior Talent Acquisition Specialist Name Role Phone Unavailable Primary Care Provider Unavailabl e Encounter Details Date Type Department Care Team (Late st Contact Info) Description 06/20/2023 Abstract [facility] [address] [place] [address] Robin Pastor, ANEESH [address] [place] [address] Social History Tobacco Use Types Packs/Day Years [...]
--- OUTSIDE RECORDS SUMMARY | 2025-04-05 06:25 | XMS_ITS | Clinical Summary ---
Author Organization [employer] Address [address] [facility] [address]t [place] [address] Care Team Providers Care Military Police Officer Name Role Phone Unavailable Primary Care [...]
--- OUTSIDE RECORDS SUMMARY | 2025-04-05 06:25 | XMS_ITS | Encounter Summary ---
Author Organization [employer] Address [address] [facility] [address] [place] [address] Care Team Providers Care Clay Machine Operator Name Role Phone Unavailable Primary Care Provider Unavailabl e Encounter Details Date Type Department Care Team (Late st Contact Info) Description 06/20/2023 Abstract [facility] [address] [place] [address] Robin Pastor, ANEESH [address] [place] [address] Social History Tobacco Use Types Packs/Day Years [...]
--- OUTSIDE RECORDS SUMMARY | 2025-04-05 06:25 | XMS_ITS | Encounter Summary ---
Author Organization [facility] Address [address] [place] [address] Care Team Providers Care Civil Rights Representative Name Role Phone Pcp, No Primary Care Provider Unavailabl e Encounter Details Date Type Department Care Team (Latest Contact Info) Description 09/21/2024 Hospital Encounter Social History Tobacco Use Types Packs/Day Years Used Date Smoking Tobacco: Never Smokeless Tobacco: Never Alcohol Use Standard Drinks/Week Comments Not Currently 0 (1 standard drink = 0.6 oz pur e alcohol) [facility] Utilities Answer Date Recorded In the past 12 months has e [employer], gas, oil, or water [employer] threatened to shut off services in your [...] time in the past 12 m [facility], were you homeless or living in a prison (including now)? Patient unable to answer 09/22/2024 [...] Male 0 09/22/2024 5:00 AM EDT Sherin lCaudio RN Q1: How often do you have [...] on filedocumented in this encounter Care Teams Civil Rights Representative Relationship Specialty Start Date End Date Pcp, No PCP - General General Medicine 6/8/25 documented as of this encounter
[2025-04-05 06:45] LABS: Hematocrit 36.9 % (42.0-52.0); Hemoglobin 12.2 g/dl (14.0-18.0); Imm Gran Abs Auto 0.23 X10*3/uL (0.00-0.03); Imm Gran Pct Auto 3.3 % (0.0-0.4); Lymphocytes Absolute Auto 1.5 X10*3/uL (1.2-4.9); Mean Corpuscular HGB Conc 33.1 g/dl (31.0-36.0); Mean Corpuscular Hemoglobin 29.4 pg (27.0-33.0); Mean Corpuscular Volume 88.9 fL (80.0-98.0); NRBC Abs Auto 0.000 X10*3/uL (0.0-0.012); NRBC Pct Auto 0.0 /100WBC (0.0-0.2); Platelet Count 158 X10*3/uL (160-400); Red Blood Count 4.15 X10*6/uL (4.60-5.80); White Blood Count 7.0 X10*3/uL (4.8-10.8)
[2025-04-05 06:56] LABS: Alanine Aminotransferase 24 U/L (0-40); Albumin Level 3.8 g/dL (3.5-5.0); Alkaline Phosphatase 69 U/L (39-117); Anion Gap 13 (12-20); Aspartate Amino Transferase 27 U/L (5-37); Blood Urea Nitrogen 25 mg/dL (9-16); Calcium 8.9 mg/dL (8.4-10.2); Carbon Dioxide 21 mmol/L (22-29); Chloride 111 mmol/L (96-108); Estimated Glomerular Filt Rate 35; Potassium 3.8 mmol/L (3.3-5.1); Sodium 141 mmol/L (135-145); Total Protein 6.1 g/dL (6.5-8.0)
== END 2025-04-05 06:20 | disposition home or self-care (01) ==
LOC: HO.HSH3N 06:19
PROVIDERS: Visit Provider Nurse Practitioner Acute Care
DX: J18.9 Pneumonia, unspecified organism (principal); R78.81 Bacteremia; N17.9 Acute kidney failure, unspecified
CPT/HCPCS: 36415; 80053; 85025

== ENCOUNTER 2025-04-16 13:38 | Outpatient (REF) | payer MEDICARE, SELFPAY ==
--- OUTSIDE RECORDS SUMMARY | 2023-10-30 10:00 | XMS_ITS ---
Author Organization [facility] Address [address] [place] [address] Care Team Providers Care Engineering And Operations Director Name Role Phone Tatum MURRELL, Jamison Primary Care Provider Unavailab Lc William [phone] REASON FOR VISIT barretts esophagus Encounters Encounter Location Date Provider Diagnosis [facility] [address] [place] [phone] 10/30/2023 Lc Avalos Plan Of Treatment No Information Progress Notes * MARIANNE DAVILADOB: 4 (79 yo M)Acc No.[id number]:10/30/2023 Progress Notes Patient: MARIANNE DELGADO Provider: Lissette Avalos MD :1945 A ge:78 Y S ex:Male Date:10/30/2023 Address:[place], [address] [place], [place] [id number] Pcp:Jamison Winn MD Subjective: * Chief Complaints: * B arretts esophagus * The named appointment provid er may or may not be the originator of this progress note, and it is not deemed complete until electronically signed by the appointment provider. Sign off status: Pending * Provider: Lissette Avalos MD Date: 0 10/30/2023 Generated for Néstor akers/Earle/eTransmitting on: 06/16/2024 02:02 PM EST
--- OUTSIDE RECORDS SUMMARY | 2025-04-16 14:03 | XMS_ITS | Patient Health Record ---
Author Organization [facility] Address [address] [place] [address] Care Team Providers Care Shear Operator Automatic Name Role Phone Jamison Winn MD Primary Care Provider Lc Coronado [phone] Allergies Allergen (clinical drug ingredient) Drug/Non Drug Allergy documented on EMR Reaction Allergy Type Onset Date Status baclofen Baclofen Unknown Drug Allergy Active lisinopril Lisinopril Unknown Drug Allergy Activ e sildenafil Sildenafil Unknown Drug Allergy Activ e Reason For Referral No Information Medications Medication SIG (Take, Route, Frequency, Duration) Notes Start Date End Date Status Diphenhydramine 1 tab Oral; Duration : 14 days Active oxyCODONE HCl 5 MG Tablet 1 tablet as ne eded Orally every 6 hrs Active ibuprofen 1 tab Oral; Duration : 14 days Active Pantoprazole Sodium 40 MG Tablet Delayed Release 1 tablet Orally Once a day; Duration: 30 day(s) Active Metoprolol Succinate ER 25 M G Tablet Extended Release 24 Hour 1 tablet Orally Once a day; Duration: 30 day(s) Active Mirtazapine 15 MG Tablet 1 tablet at bed time Orally Once a day; Duration: 30 day(s) Active Folic Acid 1 MG Tablet 1 tablet Orally O nce a day; Duration: 30 day(s) Active Immunizations Vaccine Route Administration Date Status Comme nts Influenza Unknown 02/12/2023 Administered Influenza Unknown 02/17/2024 Administered Social History Tobacco Use: Social History Observation Description Date Details (start date - stop date) Never Smoker NA - NA Social History Drug/Alcohol: Social Info Question Answer Notes AUDIT-C (Standard) Did you have a drink containing alcohol in the past year? No Points 0 Interpretation Negative Tobacco Use: Social Info Question Answer Notes Tobacco Use/Smoking Patient is a nonsmoker Additional Details Category Social Info Options Details Miscellaneous: Marital status: single Occupation: retired Section Notes: Nonsmoker; recovering alcoho lic x 3-4 years Nonsmoker; recovering alcoho lic x 3-4 years Problems Problem Type SNOMED Code ICD Code Onset Dates Problem Status W/U Status Risk Notes Problem Gallstones (120877186) Gallstones (K80.20) Active confirmed Problem Cirrhotic (372383968) Cirrhosis (K74.60) Active confirmed Problem Alcoholic cirrhosis of liver (216976972) Alcoholic cirrhosis of liver (K70.30) Active confirmed 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 Problem Gastroesophageal reflux disease (disorder) (685576040) Chronic GERD (K21.9) Active confirmed Vital Signs Temperature 97.5 degrees Fahrenheit 02/16/2025 Blood pressure diastolic 01 mm Hg 02/16/2025 Height 5Ft 9 In in 02/16/2025 Blood pressure systolic 001 mm Hg 02/16/2025 Weight 168.0 lbs 02/16/2025 BMI 24.81 kg/m2 02/16/2025 Encounters Encounter Location Date Provider Diagnosis [facility] [address] [place] [phone] 02/16/2025 Lc Avalos Chronic GERD K21.9 ; Hoffman esophagus K22.70 and Gallstones K80.20 [facility] [address] [place] [address] 02/10/2025 Lc Avalos Assessments Encounter Date Diagnosis [...] for allowing me to have participated in [facility]. Please do not hesitate to contact me if I can be of any further assistance in the future. 02/16/2025 Gallstones (ICD-10 - K80.20) You should be referred back to the surgeon at [facility] if you develop any right [...] for allowing me to have participated in [facility]. Please do not hesitate to contact me if I can be of any further assistance in the future. Plan Of Treatment No Information Insurance Providers Payer Name Payer Address Payer Phone Subscriber Number Group Number Insured Name Patient Relationship to Insured Coverage Start Date Coverage End Date MEDICARE OF [facility] [address] [place] [address] [phone] [id number] BENIGNO DAVILAFORD Self - patient is the insured Medical (General) History Medical History History ICD Code Coronary artery disease with previous AR GERD was reported Hoffman's esophagus, although I [...] Surgery Date(Month/Year) [facility]ctomy at [facility]
--- OUTSIDE RECORDS SUMMARY | 2025-04-16 14:03 | XMS_ITS | Encounter Summary ---
Author Organization [employer] Address [address] [facility] 7t [place] [address] Care Team Providers Care Supervisor Brake Repair Name Role Phone Unavailable Primary Care Provider Unavailabl e Encounter Details Date Type Department Care Team (Latest Contact Info) Description 01/03/2022 Abstract [facility] CONVERSIONS Dental, Provider, DDS Social History Tobacco [...]
--- OUTSIDE RECORDS SUMMARY | 2025-04-16 14:03 | XMS_ITS | Encounter Summary ---
Author Organization [employer] Address [address] [facility] 7t [place] [address] Care Team Providers Care Grocery Team Member Name Role Phone Unavailable Primary Care Provider Unavailabl e Encounter Details Date Type Department Care Team (Late st Contact Info) Description 06/20/2023 Abstract [facility] [address] [place] [address] Robin Pastor, ANEESH [address] [place] [address] Social History Tobacco Use Types Packs/Day Years [...]
--- OUTSIDE RECORDS SUMMARY | 2025-04-16 14:03 | XMS_ITS | Encounter Summary ---
Author Organization [employer] Address [address] [facility] [address]t [place] [address] Care Team Providers Care Clerical Warehouse Worker Name Role Phone Unavailable Primary Care Provider Unavailabl e Encounter Details Date Type Department Care Team (Late st Contact Info) Description 05/03/2023 Abstract [facility] [address] [place] [address] Robin Pastor, ANEESH [address] [place] [address] Social History Tobacco Use Types Packs/Day Years [...]
--- OUTSIDE RECORDS SUMMARY | 2025-04-16 14:03 | XMS_ITS | Clinical Summary ---
Author Organization [employer] Address [address] [facility] [address]t [place] [address] Care Team Providers Care Unit Coordinator Name Role Phone Unavailable Primary Care Provider [...]
--- OUTSIDE RECORDS SUMMARY | 2025-04-16 14:03 | XMS_ITS | Encounter Summary ---
Author Organization [facility] Address [address] [place] [address] Care Team Providers Care Billboard Mechanic Name Role Phone Pcp, No Primary Care Provider Unavailabl e Encounter Details Date Type Department Care Team (Latest Contact Info) Description 09/21/2024 Hospital Encounter Social History Tobacco Use Types Packs/Day Years Used Date Smoking Tobacco: Never Smokeless Tobacco: Never Alcohol Use Standard Drinks/Week Comments Not Currently 0 (1 standard drink = 0.6 oz pur e alcohol) [facility] Utilities Answer Date Recorded In the past 12 months has e [employer], gas, oil, or water [employer] threatened to shut off services in your [...] any time in the past 12 m [facility], were you homeless or living in a fdc (including now)? Patient unable to answer 09/22/2024 [...] on filedocumented in this encounter Care Teams Billboard Mechanic Relationship Specialty Start Date End Date Pcp, No PCP - General General Medicine 6/8/25 documented as of this encounter
--- OUTSIDE RECORDS SUMMARY | 2025-04-16 14:03 | XMS_ITS | Encounter Summary ---
Author Organization [employer] Address [address] [facility] 7t [place] [address] Care Team Providers Care Thread Clipper Name Role Phone Unavailable Primary Care Provider Unavailabl e Encounter Details Date Type Department Care Team (Late st Contact Info) Description 06/20/2023 Abstract [facility] [address] [place] [address] Robin Pastor, ANEESH [address] [place] [address] Social History Tobacco Use Types Packs/Day Years [...]
--- OUTSIDE RECORDS SUMMARY | 2025-04-16 14:03 | XMS_ITS | Clinical Summary ---
Author Organization [facility] Address [address] [place] [id number] Care Team Providers Care Engineering Professionals Name Role Phone Pcp, No Primary Care [...] drink = 0.6 oz pur e alcohol) [facility] Utilities Answer Date Recorded In the [...] any time in the past 12 m [facility], were you homeless or living [...] this topic Medical Devices Implanted Type Area University Services Program Associate Device Identifier Shelf Expiration Date Model / Serial / Lot [id number] Lead Pacing 58cm 6fr Hlx Ecrdm Bipolar Actfx Xtd Is 1 Tndrl - [id number] Implanted:Qty : 1 on 09/24/2024 by Lonnie Mehta MD at [facility] Lead N/A: Heart [employer] [id number] 06/26/20272087TC/58 / [id number] / Lead Pacing 52cm 6fr Hlx Ecrdm Bipolar Actfx Is-1 Conn Xtd - [id number] Implanted:Qty : 1 on 09/24/2024 by Lonnie Mehta MD at [facility] Lead N/A: Heart [employer] [id number] 06/26/2027 / [id number] / [id number] Pacemaker Cardiac Thk6mm Assurity Mri 2 Chamber Pls Gntr - [id number] Implanted:Qty : 1 on 09/24/2024 by Lonnie Mehta MD at [facility] Pacemaker Left: Chest Wall 1001 Menus [id number] 01/24/2026 [id number] / [id number] / [place] [id number] Advance Directives Documents on File Type Date Recorded Patient Office Services Assistant Expl anation Advance Directive-Scan 2024 1:55 PM [...] Decision Thoroughly Discussed with: Legally Auth orized Office Services Assistant Name of Legally Authorized Office Services Assistant: Yoon soriano * DNR Date Activated Date Inactivated Comments 09/22/2024 3:16 AM 09/24/2024 11:27 AM Question Answer Comments Decision thoroughly discussed with: Sherly ent arrived with valid State [place] DNR Transfer form Care Teams Engineering Professionals Relationship Specialty Start Date End Date Pcp, No PCP - General General Medicine 11/01/24
--- NOTE | 2025-04-16 14:36 | PM.EVENT ---
Event Note Date of Service: 04/16/25 Event Note: Patient presents for right sided bellamy removal. Catheter was sterilely prepped and draped. 1% lidocaine utilized to anesthetize the tract. Cuff freed and catheter removed with manual back pressure. Sterile dressing applied. Patient tolerated well. Dressing can be removed in 2-3 days. Call if any issues at site. Time Spent With Patient Time: Total time managing care of this patient today ___20_ minutes.
== END 2025-04-16 13:39 | disposition home or self-care (01) ==
LOC: HO.RADIR 13:38
PROVIDERS: Visit Provider Internal Medicine
DX: Z45.2 Encounter for adjustment and management of vascular access device (principal)
CPT/HCPCS: 36589; J2003

== ENCOUNTER 2025-04-19 03:54 | Emergency (ER) | payer MEDICARE, SELFPAY ==
--- OUTSIDE RECORDS SUMMARY | 2023-10-30 10:00 | XMS_ITS ---
Author Organization [facility] Address [address] [place] [address] Care Team Providers Care Bottom Brusher Name Role Phone Tatum MURRELL, Jamison Primary Care Provider Unavailab Lc William [phone] REASON FOR VISIT barretts esophagus Encounters Encounter Location Date Provider Diagnosis [facility] [address] [place] [phone] 10/30/2023 Lc Avalos Plan Of Treatment No Information Progress Notes * MARIANNE DAVILADOB: 4 (79 yo M)Acc No.[id number]:10/30/2023 Progress Notes Patient: MARIANNE DELGADO Provider: Lissette Avalos MD :1945 A ge:78 Y S ex:Male Date:10/30/2023 Address:[place], [address] [place] [id number] Pcp:Jamison Winn MD Subjective: * Chief Complaints: * B arretts esophagus * The named appointment provid er may or may not be the originator of this progress note, and it is not deemed complete until electronically signed by the appointment provider. Sign off status: Pending * Provider: Lissette Avalos MD Date: 0 10/30/2023 Generated for Néstor akers/Earle/eTransmitting on: 06/19/2024 05:44 AM EST
--- OUTSIDE RECORDS SUMMARY | 2025-04-05 00:23 | XMS_ITS | Continuity of Care Document ---
Author Name [facility] Organization [facility] Care Team Providers Care Lumber Salvager Name Role Phone [facility] Unavailable Unavailable Problems Combined list of problems from Department of Defense and Veterans Affairs facilities. It does not include entries that were removed or entered in error. 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 [facility] Malignant prostatic tumor Active 05/27/19 16 Condition Jul 25, 2015 Entered By: AMAURY SAAVEDRA RD Comment: treated with surgery [facility] Blood in Stool Active 05/27/19 13 Condition [facility] Gastroesophageal Reflux Disorder Active 05/27/19 13 Condition [facility] Hearing Loss, Partial Active 05/27/19 13 Condition [facility] Hypercholesterolemia (SNOMED CT 00007041) Active 05/27/19 13 Condition [facility] Alcoholic fatty liver disease Active Condition [facility] Essential hypertension Active Condition [facility] Hypertension * (ICD-9-CM 401.9) Active Condition [facility] Diagnosis: ICD-10-CM F03.90 Unsp dementia, unsp severity, without beh/psych/mood/anx Active Diagnosis [facility] Medications Combined list of outpatient medications from [facility] and [facility] facilities.Medications provided include 1) outpatient medications from the last 15 months, and 2) patient-reported medications. Medication Details Route Status Indication(s) Patie nt Instructions Prescription Expires Prescription Number Last Dispense Date Ordering Provider Order Date Order Qty Source FOLIC ACID 1MG TAB TAKE ONE TABLET BY MOUTH EVERY DAY ORAL ACTIVE KERI,HOW ILDEFONSO D 2017 [facility] METOPROLOL SUCCINATE 25MG TAB,SA TAKE ONE TABLET BY MOUTH EVERY DAY ORAL ACTIVE SAAVEDRA,HOW ILDEFONSO D 2017 [facility] MIRTAZAPINE 30MG TAB TAKE ONE-HALF TABLET BY MOUTH EVERY DAY ORAL ACTIVE SAAVEDRA,HOW ILDEFONSO D 2017 [facility] PANTOPRAZOL E NA 40MG TAB,EC TAKE ONE TABLET BY MOUTH EVERY DAY ORAL ACTIVE SAAVEDRA,HOW ILDEFONSO D 2017 [facility] Allergies, Adverse Reactions, Alerts Combined list of allergies from [facility] facilities. It does not include entries that were removed or entered in error. Substance Category Reaction Severity Reaction type Status Date Reported Comments Source BACLOFEN Propensity to adverse reactions to drug (finding) Weakness present active 3 [facility] LISINOPRIL Propensity to adverse reactions to drug (finding) Cough active 3 [facility] SCALLOPS Propensity to adverse reactions to substance (finding) Eruption active 8 [facility] SILDENAFIL Propensity to adverse reactions to drug (finding) Headache active 4 [facility] Immunizations Combined list of available immunizations from the [facility] and [facility] facilities. Immunization Series Date Given Administered By Site Reaction Lot Number CVX Code Drug Windows Security Analyst Status Comments Source INFLUENZA, UNSPECIFIED FORMULATION 2021 88 complet ed Completed Series, HISTORICA L INFORMATI ON - FROM OTHER REGISTRY, [facility] COVID-19 (PiPsports), MRNA, LNP-S, PF, 30 MCG/0.3 ML DOSE 2 2020 208 complet ed [facility] COVID-19 (PFIZER), MRNA, LNP-S, PF, 30 MCG/0.3 ML DOSE 1 2019 208 complet ed [facility] INFLUENZA, TRIVALENT, ADJUVANTED 2017 168 complet ed Site: Left Deltoid [facility] INFLUENZA, SEASONAL, INJECTABLE 2016 141 complet ed Site: Left Deltoid [facility] HEP A-HEP B 2016 104 complet ed Site: Left Deltoid [facility] PNEUMOCOCCAL POLYSACCHARID E PPV23 2016 33 complet ed [facility] FLU,3 YRS (HISTORICAL) 2015 88 complet ed Site: Right Deltoid [facility] HEP A-HEP B 2015 104 complet ed Site: Right Deltoid [facility] HEP A-HEP B 2015 [address] [place] [place] [address] 104 complet ed [facility] PNEUMOCOCCAL CONJUGATE PCV 13 [address] [place] [address] 133 complet ed [facility] ZOSTER (SHINGLES) (HISTORICAL) 2015 121 complet ed Proximal Left Arm [facility] DTAP, UNSPECIFIED FORMULATION 2014 107 complet ed verbal from patient [facility] Vital Signs Combined list of inpatient and outpatient Vital Signs from Department of Defense and Veterans Affairs, ranging from 12 months to all on record, depending upon the facility. Vital Sign Value Date Comments Source SYSTOLIC BLOOD PRESSURE 136 01/27/2025 13:07:33 [facility] DIASTOLIC BLOOD PRESSURE 62 01/27/2025 13:07:33 [facility] PULSE OXIMETRY 93 % 01/27/2025 13:07:33 [facility] PAIN 0 01/27/2025 13:07:33 [facility] TEMPERATURE 98.5 01/27/2025 13:07:33 [facility] PULSE 61 01/27/2025 13:07:33 [facility] RESPIRATION 16 01/27/2025 13:07:33 [facility] Encounters Combined list of: 1) Encounters from Department of Veterans Affairs facilities going backup to the last 18 months, not all VA inpatient encounters are included; 2) Encounters from the Department of Defense facilities going backup to 280 months. Location Location Details Encounter Type Encounter Number Reason For Visit Attending Provider ADM Date DC Date Status Disposition Source [facility] Outpatient Encounter [id number] 11/04 [facility] Out[facility]counter [id number] 01/14 [facility] OFFICE O/P EST SF 10 MIN [id number] Diagnos is: ICD-10- CM F03.90 Unsp dementi a, unsp severit y, without beh/psy ch/mood /anx AMAURY SAAVEDRA RD D 01/21 [facility] Out[facility]counter [id number] 03/02 [facility] Out[facility]counter [id number] 03/08 [facility] Out[facility]counter [id number] 05/07 [facility] Out[facility] Encounter [id number] 05/21 [facility] Out[facility]counter [id number] 06/10 [facility] Outpatient [facility]counter [id number] 07/10 [facility] Out[facility]counter [id number] 12/12 [facility] Out[facility]counter [id number] 12/16 [facility] OFFICE O/P EST LOW 20 MIN [id number] Diagnos is: ICD-10- CM F03.90 Unsp dementi a, unsp severit y, without beh/psy ch/mood /anx AMAURY SAAVEDRA RD 01/27 [facility] Outpatient Encounter [id number] 02/16 [facility] Outpatient Encounter [id number] 03/24 [facility] Social History Combined list of available smoking, tobacco, and other social history from Department of Defense and Veterans Affairs facilities. Social History Type Response Date Comment Source Tobacco smoking status [facility] VA-TOBACCO USE FORMER CIGARETTES 01/27/2025 [facility] History of tobacco use VA-TOBACCO NEVER USED OTHER TYPE 01/27/2025 [facility] History of tobacco use VA-TOBACCO FORMER USER 01/22/2024 [facility] History [facility] tobacco use [place] FORMER USER 01/16/2023 [facility] History of tobacco use [place]-TOBACCO FORMER USER 01/18/2021 [facility]07/2018 [facility] History of tobacco use LIFETIME NON-TOBACCO USER 06/19/2017 [facility] History of tobacco use QUIT TOBACCO USE > 7 YEARS AGO 06/07/2016 pt quit in 1974 [facility] History of tobacco use QUIT TOBACCO USE > 7 YEARS AGO 06/21/2015 pt states stoppeddsmoking in 1974. [facility] History of tobacco use LIFETIME NON-TOBACCO USER 11/03/2012 [facility] Advance Directives List of completed, amended, or rescinded Advance Directives on record at [facility] facilities. An actual copy of the Directive is not included. Date Advance Directive Provider Source 07/12/2017 ADVANCE DIRECTIVE JULIA SAAVEDRA [facility]
[2025-04-19 03:58] VITALS: BP 138/60; BP 144/62; PULSE 63; PULSE 66; RESP 15; TEMP 36.6; O2SAT 92; O2SAT 95; BMI 24.6
[2025-04-19 04:11] VITALS: BP 144/62; PULSE 66; RESP 15; TEMP 36.6; O2SAT 92
[2025-04-19 05:01] LABS: Appearance Urine Clear; Glucose Urine UA Negative (Negative); PH 5.0 (5.0-9.0); Specific Gravity - Urine 1.020 (1.005-1.025)
--- OUTSIDE RECORDS SUMMARY | 2025-04-19 05:44 | XMS_ITS | Encounter Summary ---
Author Organization [employer] Address [address] [facility] 7t [place] [address] Care Team Providers Care Batter Scaler Name Role Phone Unavailable Primary Care Provider Unavailabl e Encounter Details Date Type Department Care Team (Late st Contact Info) Description 06/20/2023 Abstract [facility] [address] [place] [address] Robin Pastor, ANEESH [address] [place] [address] Social History Tobacco Use Types Packs/Day Years [...]
--- OUTSIDE RECORDS SUMMARY | 2025-04-19 05:44 | XMS_ITS | Encounter Summary ---
Author Organization [facility] Address [address] [place] [address] Care Team Providers Care Crop Scout Name Role Phone Pcp, No Primary Care Provider Unavailabl e Encounter Details Date Type Department Care Team (Latest Contact Info) Description 09/21/2024 Hospital Encounter Social History Tobacco Use Types Packs/Day Years Used Date Smoking Tobacco: Never Smokeless Tobacco: Never Alcohol Use Standard Drinks/Week Comments Not Currently 0 (1 standard drink = 0.6 oz pur e alcohol) [facility] Utilities Answer Date Recorded In the past 12 months has e [place], gas, oil, or water [employer] threatened to shut off services in your [...] time in the past 12 m [facility], were you homeless or living in a detention (including now)? Patient unable to answer 09/22/2024 [...] on filedocumented in this encounter Care Teams Crop Scout Relationship Specialty Start Date End Date Pcp, No PCP - General General Medicine 6/8/25 documented as of this encounter
--- OUTSIDE RECORDS SUMMARY | 2025-04-19 05:44 | XMS_ITS | Encounter Summary ---
Author Organization [email or web address] Address [address] [facility] 7t [place] [address] Care Team Providers Care Licensed Professional Counselor Name Role Phone Unavailable Primary Care Provider Unavailabl e Encounter Details Date Type Department Care Team (Latest Contact Info) Description 01/03/2022 Abstract [facility], Provider, DDS Social History Tobacco [...]
--- OUTSIDE RECORDS SUMMARY | 2025-04-19 05:44 | XMS_ITS | Encounter Summary ---
Author Organization [employer] Address [address] [facility] 7[address] [place] [address] Care Team Providers Care Gold Stamper Name Role Phone Unavailable Primary Care Provider Unavailabl e Encounter Details Date Type Department Care Team (Late st Contact Info) Description 05/03/2023 Abstract [facility] [address] [place] [address] Robin Pastor, ANEESH [address] [place] [address] Social History Tobacco Use Types Packs/Day Years [...]
--- OUTSIDE RECORDS SUMMARY | 2025-04-19 05:44 | XMS_ITS | Clinical Summary ---
Author Organization [employer] Address [address] [facility] 7[address] [place] [address] Care Team Providers Care Stand Up Comedian Name Role Phone Unavailable Primary Care Provider [...]
--- OUTSIDE RECORDS SUMMARY | 2025-04-19 05:44 | XMS_ITS | Patient Health Record ---
Author Organization [facility] Address [address] [place] [address] Care Team Providers Care African History Professor Name Role Phone Jamison Winn MD Primary Care Provider Lc Coronado [phone] Allergies Allergen (clinical drug ingredient) Drug/Non Drug [...] Status W/U Status Risk Notes Problem Gallstones (907099671) Gallstones (K80.20) Active confirmed Problem Cirrhotic (938586871) Cirrhosis (K74.60) Active confirmed Problem Alcoholic cirrhosis of liver (554478599) Alcoholic cirrhosis of liver (K70.30) Active confirmed Problem Hoffman esophagus (034001883) 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 Problem Gastroesophageal reflux disease (disorder) (404763280) Chronic GERD (K21.9) Active confirmed Vital Signs Temperature 97.5 degrees Fahrenheit 02/16/2025 Blood pressure diastolic 01 mm Hg 02/16/2025 Height 5Ft 9 In in 02/16/2025 Blood pressure systolic 001 mm Hg 02/16/2025 Weight 168.0 lbs 02/16/2025 BMI 24.81 kg/m2 02/16/2025 Encounters Encounter Location Date Provider Diagnosis [facility] [address] [place] [phone] 02/16/2025 Lc Avalos Chronic GERD K21.9 ; Hoffman esophagus K22.70 and Gallstones K80.20 [facility] [address] [place] [phone] 02/10/2025 Lc Avalos Assessments Encounter Date Diagnosis [...] have participated in [facility]. Please do not hesitate to contact me if I can be of any further assistance in the future. 02/16/2025 Gallstones (ICD-10 - K80.20) You should be referred back to the surgeon at [facility] if you develop any right upper abdominal [...] have participated in [facility]. Please do not hesitate to contact me if I can be of any further assistance in the future. Plan Of Treatment No Information Insurance Providers Payer Name Payer Address Payer Phone Subscriber Number Group Number Insured Name Patient Relationship to Insured Coverage Start Date Coverage End Date MEDICARE OF [facility] [address] [place] [id number] [phone] [id number] BENIGNO DAVILAFORD Self - patient is the insured Medical (General) History Medical History History ICD Code Coronary artery disease with previous MD GERD was reported Hoffman's esophagus, although I [...] Surgery Date(Month/Year) Prostatectomy at [facility]
--- OUTSIDE RECORDS SUMMARY | 2025-04-19 05:44 | XMS_ITS | Encounter Summary ---
Author Organization [employer] Address [address] [facility] 7[address] [place] [address] Care Team Providers Care Corporate Concierge Name Role Phone Unavailable Primary Care Provider Unavailabl e Encounter Details Date Type Department Care Team (Late st Contact Info) Description 06/20/2023 Abstract [facility] [address] [place] [address] Robin Pastor, ANEESH [address] [place] [address] Social History Tobacco Use Types Packs/Day Years [...]
--- OUTSIDE RECORDS SUMMARY | 2025-04-19 05:44 | XMS_ITS | Clinical Summary ---
Author Organization [facility] Address [address] [place] [address] Care Team Providers Care Sales Representative Advertising Name Role Phone Pcp, No Primary Care [...] drink = 0.6 oz pur e alcohol) [facility] Utilities Answer Date Recorded In the [...] in the past 12 m [facility], were you homeless or living [...] this topic Medical Devices Implanted Type Area Aviation Program Manager Device Identifier Shelf Expiration Date Model / Serial / Lot [id number]/58 Lead Pacing 58cm 6fr Hlx Ecrdm Bipolar Actfx Xtd Is 1 Tndrl - [id number] Implanted:Qty : 1 on 09/24/2024 by Lonnie Mehta MD at [facility] Lead N/A: Heart [employer] [id number] 06/26/20272087TC/58 / [id number] / Lead Pacing 52cm 6fr Hlx Ecrdm Bipolar Actfx Is-1 Conn Xtd - [id number] Implanted:Qty : 1 on 09/24/2024 by Lonnie Mehta MD at [facility] Lead N/A: Heart [employer] [id number] 06/26/2027 / [id number] / [id number] Pacemaker Cardiac Thk6mm Assurity Mri 2 Chamber Pls Gntr - [id number] Implanted:Qty : 1 on 09/24/2024 by Lonnie Mehta MD at [facility] Pacemaker Left: Chest Wall [employer] [id number] 01/24/2026 [id number] / [id number] / [place] [id number] Advance Directives Documents on File Type Date Recorded Patient Water Service Supervisor Expl anation Advance Directive-Scan 2024 [...] Decision Thoroughly Discussed with: Legally Auth orized Water Service Supervisor Name of Legally Authorized Water Service Supervisor: Yoon soriano * DNR Date Activated Date Inactivated Comments 09/22/2024 3:16 AM 09/24/2024 11:27 AM Question Answer Comments Decision thoroughly discussed with: Sherly ent arrived with valid [place] DNR Transfer form Care Teams Sales Representative Advertising Relationship Specialty Start Date End Date Pcp, No PCP - General General Medicine 11/01/24
[2025-04-19 05:51] VITALS: BP 148/61; PULSE 70; RESP 16; TEMP 36.7; O2SAT 92
--- NOTE | 2025-04-19 05:55 | ED.GENADULT ---
HPI - General Adult General Chief complaint: Behavioral Concerns Stated complaint: INCR AGGITATION X2W FROM [facility] Time Seen by Provider: 04/19/25 04:09 Source: patient, EMS, RN notes reviewed and old records reviewed Mode of arrival: EMS Limitations: other (Dementia) History of Present Illness ED Provider: Dr. Liz Holland HPI narrative: 79-year-old male with history of dementia, recent admission for bacteremia now off antibiotics presenting with [facility]. Evidently he was medicated with Ativan prior to arrival which did not help his agitation however, upon arrival to the emergency department patient is calm and answering questions appropriately, very pleasant, no agitation noted. He has no medical complaints. States ?I feel pretty good?. He has no pain, nausea or difficulty breathing. Oriented to person. Related Data Home Medications ?Medication ?Instructions ?Recorded ?Confirmed allopurinol 100 mg tablet 50 mg PO DAILY 12/18/21 03/27/25 cholecalciferol (vitamin D3) 50 50 mcg PO DAILY 12/18/21 03/27/25 mcg (2,000 unit) tablet loratadine 10 mg tablet 10 mg PO BEDTIME 12/18/21 03/27/25 pantoprazole 40 mg tablet,delayed 40 mg PO BID@0630,1630 06/17/23 03/27/25 release mirtazapine 30 mg tablet 30 mg PO BEDTIME 03/02/24 03/27/25 multivitamin 1 tab PO DAILY 05/06/24 03/27/25 thiamine HCl (vitamin B1) 100 mg 100 mg PO DAILY 05/06/24 03/27/25 tablet acetaminophen 325 mg tablet 650 mg PO BID 05/28/24 03/27/25 aluminum-mag hydroxide-simethicone 30 ml PO TID PRN Heartburn 05/28/24 03/27/25 200 mg-200 mg-20 mg/5 mL oral susp (Mag-Al Plus) calcium carbonate 500 mg PO Q4H PRN Heartburn 05/28/24 03/27/25 famotidine 20 mg tablet 20 mg PO DAILY PRN Heartburn 05/28/24 03/27/25 lactase 3,000 unit tablet 3,000 unit PO Q1H PRN Lactose 05/28/24 03/27/25 Intolerance ondansetron 4 mg disintegrating 4 mg PO Q6H PRN Nausea And Vomiting 05/28/24 03/27/25 tablet polyethylene glycol 3350 17 gram 17 g PO DAILY PRN Constipation 05/28/24 03/27/25 oral powder packet sertraline 50 mg tablet 50 mg PO DAILY 07/29/24 03/27/25 tamsulosin 0.4 mg capsule (Flomax) 0.4 mg PO BEDTIME 07/29/24 03/27/25 amiodarone 200 mg tablet 200 mg PO DAILY 10/23/24 03/27/25 acetaminophen 325 mg tablet 650 mg PO Q4H PRN Pain (Scale 12/13/24 03/27/25 Score 1-3) ferrous sulfate 325 mg (65 mg 325 mg PO DAILY 12/13/24 03/27/25 iron) tablet metoprolol succinate 25 mg 25 mg PO DAILY 12/13/24 03/27/25 tablet,extended release 24 hr acetaminophen 650 mg rectal 650 mg OH Q6H PRN Fever Or Pain 03/27/25 03/27/25 suppository ipratropium 0.5 mg-albuterol 3 mg 3 ml inhalation Q4H PRN Shortness 03/27/25 03/27/25 (2.5 mg base)/3 mL nebulization Of Breath Or Wheezing soln Previous Rx's ?Medication ?Instructions ?Recorded atorvastatin 40 mg tablet 40 mg PO BEDTIME 90 days #90 tabs 05/08/24 clopidogrel 75 mg tablet 75 mg PO DAILY 90 days #90 tabs 05/08/24 ertapenem 1 gram solution for 1 g IV DAILY 12 days 04/02/25 injection Allergies Allergy/AdvReac Type Severity Reaction Status Date / Time lisinopril (LISINOPRIL) Allergy Mild UNKNOWN Verified 04/19/25 04:04 baclofen (BACLOFEN) Allergy Unknown UNKNOWN Verified 04/19/25 04:04 shellfish derived (SHELLFISH Allergy Unknown UNKNOWN Verified 04/19/25 04:04 DERIVED) cephalexin (From Keflex) Allergy Unknown Verified 04/19/25 04:04 Review of Systems Review of Systems: As per HPI, full review of systems performed and negative but for the above mentioned pertinent positives and negatives. [facility] Past Medical History Medical History Alzheimer disease Cerebral atrophy Intracranial atherosclerosis Carotid stenosis Hypertension TIA (transient ischemic attack) CKD (chronic kidney disease) New onset of congestive heart failure Diverticulitis Dementia Hoffman esophagus Malignant neoplasm of prostate Cirrhosis of liver Surgical History H/O radical prostatectomy Family History Family History Father CAD (coronary artery disease) Social History Social History Household Members: None Housing: Other Housing Other:: [facility] Do you presently have visiting nurse or other home services: No Alcohol intake: former Patient Tobacco Use Status: Never used Tobacco Smoked in Last 30 Days: No Use of substances other than those prescribed or required for medical reasons: No Advance Directives: Yes Advance Directives on File: Yes Advance Directives Date on File: 12/22/21 Do you have a plan to hurt others: No Plan service: Yes Current occupational status: retired Physical Exam ED Exam Exam: GENERAL: Chronically ill-appearing, conversant, no acute distress. SKIN: Normal skin color for ethnicity, warm, dry, no rashes noted. HEENT: Normocephalic, atraumatic, no stridor, posterior oropharynx nonerythematous, EOMI, dry mucous membranes. NECK: Soft, supple, full ROM, midline structures nontender, no step-offs, no deformities, no lymphadenopathy. CHEST: Heart regular rate and rhythm, no murmurs, symmetric chest rise and fall. PULMONARY: Clear to auscultation bilaterally, no labored breathing, no wheezes/rhales/ rhonchi. ABDOMINAL: Soft, nondistended, nontender, positive bowel sounds in all quadrants. : Deferred. MUSCULOSKELETAL: Normal tone, full range of motion, no deformities, no peripheral edema. NEURO: Alert and oriented to person, CN II through XII intact, no focal neurologic deficits. PSYCHIATRIC: Flat affect, fluid speech, appropriate demeanor. Vital Signs: Vital Signs - 24 hr 04/19/25 03:58 04/19/25 04:11 04/19/25 05:51 Temperature 98 F 98 F 98.0 F Pulse Rate 66 66 70 Respiratory Rate 15 15 16 Blood Pressure 144/62 H 144/62 H 148/61 H Pulse Oximetry 92 92 92 Oxygen Delivery Method Room Air Room Air Room Air BMI result Body Mass Index 24.6 Medical Decision Making Medical Decision Making [facility] Narrative: 79-year-old male with history of dementia, recent admission for bacteremia now off antibiotics presenting with reported agitation from [facility]. Evidently he was medicated with Ativan prior to arrival which did not help his agitation however, upon arrival to the emergency department patient is calm and answering questions appropriately, very pleasant, no agitation noted. He has no medical complaints. States ?I feel pretty good?. He has no pain, nausea or difficulty breathing. Oriented to person but tells me that he is 40 years old. Pleasantly demented. Differential diagnosis includes continued UTI, worsening dementia, medication side effect, behavioral changes associated with dementia, among many others. He is very relaxed here in the emergency department. I suspect that the Ativan is starting to take effect as he is getting sleepy. Plan for transfer back to the SNF. His urine does not show worsening infection. He has normal vital signs and is resting comfortably without any physical complaints. Differential Diagnosis Differential Diagnoses: The differential diagnosis associated with the presentation includes (As above) Admission/Observation Consideration of admission/observation: Escalation of care including admission/observation considered Lab Data [facility] Lab Attestation statement: I reviewed the patient's lab results. Labs: Lab Results 04/19/25 Range/Units 04:51 Urine Color Yellow Urine Appearance Clear Urine pH 5.0 (5.0-9.0) Ur Specific [place] 1.020 (1.005-1.025) Urine Protein Negative (Neg-Trace) mg/dL Urine Glucose (UA) Negative (Negative) mg/dL Urine Ketones Negative (Negative) mg/dL Urine Blood Negative (Negative) Urine Nitrite Negative (Negative) Ur Leukocyte Esterase Negative (Negative) Independent Historian Clinical information obtained from an independent historian. History obtained from or confirmed by: EMS External Record Review External record reviewed: Inpatient record and Outpatient record Chronic Conditions Patient?s care impacted by: Other (Dementia) Discharge Plan Discharge Clinical Impression: Agitation due to dementia Patient Disposition: [facility] Additional Instructions: Continue medications as prescribed. Continue to use Ativan as needed for agitation. Return to the ER with any new or worsening symptoms including: Worsening agitation despite medications, fevers greater than 100?, inability to tolerate food or drink, any new symptom that is concerning. Prescriptions: No Action allopurinol 100 mg Tablet 50 mg PO DAILY loratadine 10 mg Tablet 10 mg PO BEDTIME cholecalciferol (vitamin D3) 50 mcg (2,000 unit) Tablet 50 mcg PO DAILY acetaminophen 325 mg Tablet 650 mg PO BID MDD 3g polyethylene glycol 3350 17 gram Powder In Packet 17 g PO DAILY PRN (Reason: Constipation) famotidine 20 mg Tablet 20 mg PO DAILY PRN (Reason: Heartburn) calcium carbonate 500 mg calcium (1,250 mg) Tablet 500 mg PO Q4H MDD 5 tablets PRN (Reason: Heartburn) lactase 3,000 unit Tablet 3,000 unit PO Q1H PRN (Reason: Lactose Intolerance) Rx Instructions: administer with meals and/or snacks TAKE PRIOR TO DAIRY PRODUCTS alum-mag hydroxide-simeth [Mag-Al Plus] 200-200-20 mg/5 mL Suspension 30 ml PO TID PRN (Reason: Heartburn) Rx Instructions: administer between meals and at bedtime ondansetron 4 mg Tablet,Disintegrating 4 mg PO Q6H PRN (Reason: Nausea And Vomiting) acetaminophen 325 mg Tablet 650 mg PO Q4H MDD 3g PRN (Reason: Pain (Scale Score 1-3)) ferrous sulfate 325 mg (65 mg iron) Tablet 325 mg PO DAILY metoprolol succinate 25 mg Tablet Extended Release 24 Hr 25 mg PO DAILY ipratropium-albuterol 0.5 mg-3 mg(2.5 mg base)/3 mL Solution For Nebulization 3 ml INHALATION Q4H PRN (Reason: Shortness Of Breath Or Wheezing) acetaminophen 650 mg Suppository 650 mg OH Q6H MDD 3g PRN (Reason: Fever Or Pain) ertapenem 1 gram recon soln 1 g IV DAILY 12 Days multivitamin Tablet 1 tab PO DAILY thiamine HCl (vitamin B1) 100 mg Tablet 100 mg PO DAILY clopidogrel 75 mg Tablet 75 mg PO DAILY 90 Days Qty: 90 0RF atorvastatin 40 mg Tablet 40 mg PO BEDTIME 90 Days Qty: 90 0RF pantoprazole 40 mg tablet,delayed release (DR/EC) 40 mg PO BID@0630,1630 tamsulosin [Flomax] 0.4 mg capsule 0.4 mg PO BEDTIME sertraline 50 mg tablet 50 mg PO DAILY amiodarone 200 mg tablet 200 mg PO DAILY mirtazapine 30 mg tablet 30 mg PO BEDTIME Referrals: Charlie Good MD [Primary Care Provider, Internal Medicine] Print Language: Amharic
[2025-04-19 08:18] VITALS: BP 132/75; PULSE 76; RESP 16; TEMP 36.7; O2SAT 96
--- NOTE | 2025-04-19 09:23 | PC.NURSE ---
Pt given breakfast tray and coffee. Report called to facility and transport booked. Pt had 2 episodes of diarrhea. Was able to stand and pivot to bedside commode. Call torres within reach. Pt updated on plan of care. Will continue to monitor.
[2025-04-19 10:23] VITALS: BP 156/63; PULSE 66; RESP 18; TEMP 36.7; O2SAT 94
--- NOTE | 2025-04-19 10:25 | PHA.MEDREC ---
Pharmacy Consult ? Medication Reconciliation Pharmacy has completed the medication reconciliation, using med list from [facility] [place].
== END 2025-04-19 10:53 ==
PROVIDERS: Emergency Provider Emergency Medicine; PCP Internal Medicine
DX: F03.911 Unspecified dementia, unspecified severity, with agitation (principal); I12.9 Hypertensive chronic kidney disease with stage 1 through stage 4 chronic kidney disease, or unspecified chronic kidney disease; N18.9 Chronic kidney disease, unspecified
CPT/HCPCS: 81003; 99284; 99285

== ENCOUNTER 2025-04-23 05:48 | Outpatient (REF) | payer MEDICARE, SELFPAY ==
--- OUTSIDE RECORDS SUMMARY | 2023-10-30 10:00 | XMS_ITS ---
Author Organization [facility] Address [address] [place] [address] Care Team Providers Care Pen Ruler Operator Name Role Phone Tatum MURRELL, Jamison Primary Care Provider Unavailab Lc William [phone] REASON FOR VISIT barretts esophagus Encounters Encounter Location Date Provider Diagnosis [facility] [address] [place] [phone] 10/30/2023 Lc Avalos Plan Of Treatment No Information Progress Notes * MARIANNE DAVILADOB: 4 (79 yo M)Acc No.[id number]:10/30/2023 Progress Notes Patient: MARIANNE DELGADO Provider: Lissette Avalos MD :1945 A ge:78 Y S ex:Male Date:10/30/2023 Address:[place], [address] [facility] Pcp:Jamison Winn MD Subjective: * Chief Complaints: * B arretts esophagus * The named appointment provid er may or may not be the originator of this progress note, and it is not deemed complete until electronically signed by the appointment provider. Sign off status: Pending * Provider: Lissette Avalos MD Date: 0 10/30/2023 Generated for Néstor akers/Earle/eTransmitting on: 06/23/2024 05:52 AM EST
[2025-04-23 05:51] LABS: MANUAL DIFF FLAG NO
--- OUTSIDE RECORDS SUMMARY | 2025-04-23 05:53 | XMS_ITS | Encounter Summary ---
Author Organization [facility] Address [address] [place] [address] Care Team Providers Care Therapist Name Role Phone Pcp, No Primary Care Provider Unavailabl e Encounter Details Date Type Department Care Team (Latest Contact Info) Description 09/21/2024 Hospital Encounter Social History Tobacco Use Types Packs/Day Years Used Date Smoking Tobacco: Never Smokeless Tobacco: Never Alcohol Use Standard Drinks/Week Comments Not Currently 0 (1 standard drink = 0.6 oz pur e alcohol) [facility] Utilities Answer Date Recorded In the past 12 months has e [employer], gas, oil, or water [facility] threatened to shut off services in your [...] any time in the past 12 m [facility], were you homeless or living in [...] on filedocumented in this encounter Care Teams Therapist Relationship Specialty Start Date End Date Pcp, No PCP - General General Medicine 6/8/25 documented as of this encounter
--- OUTSIDE RECORDS SUMMARY | 2025-04-23 05:53 | XMS_ITS | Patient Health Record ---
Author Organization [facility] Address [address] [place] [address] Care Team Providers Care Recruiting Associate Name Role Phone Jamison Winn MD Primary Care Provider Lc Coronado [phone] Allergies Allergen (clinical drug ingredient) Drug/Non Drug [...] Status W/U Status Risk Notes Problem Gallstones (801868700) Gallstones (K80.20) Active confirmed Problem Cirrhotic (335690861) Cirrhosis (K74.60) Active confirmed Problem Alcoholic cirrhosis of liver (726029681) Alcoholic cirrhosis of liver (K70.30) Active confirmed Problem Hoffman esophagus (259348296) 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 Problem Gastroesophageal reflux disease (disorder) (156070342) Chronic GERD (K21.9) Active confirmed Vital Signs Temperature 97.5 degrees Fahrenheit 02/16/2025 Blood pressure diastolic 01 mm Hg 02/16/2025 Height 5Ft 9 In in 02/16/2025 Blood pressure systolic 001 mm Hg 02/16/2025 Weight 168.0 lbs 02/16/2025 BMI 24.81 kg/m2 02/16/2025 Encounters Encounter Location Date Provider Diagnosis [facility] [address] [place] [phone] 02/16/2025 Lc Avalos Chronic GERD K21.9 ; Hoffman esophagus K22.70 and Gallstones K80.20 [facility] [address] [place] [phone] 02/10/2025 Lc Avalos Assessments Encounter Date Diagnosis [...] for allowing me to have participated in [facility]. Please do not hesitate to contact me if I can be of any further assistance in the future. 02/16/2025 Gallstones (ICD-10 - K80.20) You should be [place] back [place] [facility] if you develop any right upper [...] for allowing me to have participated in [facility]. Please do not hesitate to contact me if I can be of any further assistance in the future. Plan Of Treatment No Information Insurance Providers Payer Name Payer Address Payer Phone Subscriber Number Group Number Insured Name Patient Relationship to Insured Coverage Start Date Coverage End Date MEDICARE OF [facility] [address] [place] [address] [phone] [id number] BENIGNO DAVILAFORD Self - patient is the [...] Surgery Date(Month/Year) [facility]
--- OUTSIDE RECORDS SUMMARY | 2025-04-23 05:53 | XMS_ITS | Clinical Summary ---
Author Organization [facility] Address [address] [place] [address] Care Team Providers Care Size Painter Name Role Phone Pcp, No Primary Care [...] drink = 0.6 oz pur e alcohol) [facility] Utilities Answer Date Recorded In [...] any time in the past 12 m [facility], were you homeless or living in a half-way (including now)? Patient unable to answer 09/22/2024 [...] this topic Medical Devices Implanted Type Area Precision Instrument And Tool Maker Device Identifier Shelf Expiration Date Model / Serial / Lot [id number]/58 Lead Pacing 58cm 6fr Hlx Ecrdm Bipolar Actfx Xtd Is 1 Tndrl - [id number] Implanted:Qty : 1 on 09/24/2024 by Lonnie Mehta MD at [facility] Lead N/A: Heart [employer] [id number] 06/26/20272087TC/58 / [id number] / Lead Pacing 52cm 6fr Hlx Ecrdm Bipolar Actfx Is-1 Conn Xtd - [id number] Implanted:Qty : 1 on 09/24/2024 by Lonnie Mehta MD at [facility] Lead N/A: Heart [employer] [id number] 06/26/2027 / [id number] / [id number] Pacemaker Cardiac Thk6mm Assurity Mri 2 Chamber Pls Gntr - [id number] Implanted:Qty : 1 on 09/24/2024 by Lonnie Mehta MD at [facility] Pacemaker Left: Chest Wall [employer]vit [id number] 01/24/2026 [id number] / [id number] / [place] [id number] Advance Directives Documents on File Type Date Recorded Patient Coil Repair Technician Expl anation Advance Directive-Scan 2024 1:55 PM [...] Decision Thoroughly Discussed with: Legally Auth orized Coil Repair Technician Name of Legally Authorized Coil Repair Technician: Yoon soriano * DNR Date Activated Date Inactivated Comments 09/22/2024 3:16 AM 09/24/2024 11:27 AM Question Answer Comments Decision thoroughly discussed with: Sherly ent arrived with valid State [place] DNR Transfer form Care Teams Size Painter Relationship Specialty Start Date End Date Pcp, No PCP - General General Medicine 11/01/24
[2025-04-23 06:19] LABS: Ammonia 21 umol/L (13-55)
[2025-04-23 06:24] LABS: Hematocrit 35.2 % (42.0-52.0); Hemoglobin 11.2 g/dl (14.0-18.0); Imm Gran Abs Auto 0.05 X10*3/uL (0.00-0.03); Imm Gran Pct Auto 0.9 % (0.0-0.4); Lymphocytes Absolute Auto 1.0 X10*3/uL (1.2-4.9); Mean Corpuscular HGB Conc 31.8 g/dl (31.0-36.0); Mean Corpuscular Hemoglobin 29.2 pg (27.0-33.0); Mean Corpuscular Volume 91.9 fL (80.0-98.0); NRBC Abs Auto 0.000 X10*3/uL (0.0-0.012); NRBC Pct Auto 0.0 /100WBC (0.0-0.2); Platelet Count 145 X10*3/uL (160-400); Red Blood Count 3.83 X10*6/uL (4.60-5.80); White Blood Count 5.6 X10*3/uL (4.8-10.8)
[2025-04-23 06:29] LABS: Alanine Aminotransferase 48 U/L (0-40); Albumin Level 3.7 g/dL (3.5-5.0); Alkaline Phosphatase 91 U/L (39-117); Anion Gap 12 (12-20); Aspartate Amino Transferase 43 U/L (5-37); Blood Urea Nitrogen 26 mg/dL (9-16); Calcium 8.6 mg/dL (8.4-10.2); Carbon Dioxide 20 mmol/L (22-29); Chloride 116 mmol/L (96-108); Estimated Glomerular Filt Rate 31; Magnesium 2.2 mg/dL (1.6-2.6); Potassium 4.2 mmol/L (3.3-5.1); Sodium 144 mmol/L (135-145); Total Protein 6.1 g/dL (6.5-8.0)
[2025-04-23 06:56] LABS: Vitamin B12 547 pg/mL (200-900)
== END 2025-04-23 05:49 | disposition home or self-care (01) ==
LOC: HO.HSH3N 05:48
PROVIDERS: Visit Provider Nurse Practitioner Acute Care
DX: F03.90 Unspecified dementia, unspecified severity, without behavioral disturbance, psychotic disturbance, mood disturbance, and anxiety (principal); G93.40 Encephalopathy, unspecified; R41.0 Disorientation, unspecified
CPT/HCPCS: 36415; 80053; 82140; 82607; 83735; 84425; 85025

== ENCOUNTER 2025-04-26 13:55 | Outpatient (AMB) | payer MEDICARE, SELFPAY ==
--- OUTSIDE RECORDS SUMMARY | 2023-10-30 10:00 | XMS_ITS ---
Author Organization [facility] Address [address] [place] [phone] Care Team Providers Care Ordnance Technician Name Role Phone Tatum MURRELL, Jamison Primary Care Provider Unavailab Lc William [phone] REASON FOR VISIT barretts esophagus Encounters Encounter Location Date Provider Diagnosis [facility] [address] [place] [phone] 10/30/2023 Lc Avalos Plan Of Treatment No Information Progress Notes * MARIANNE DAVILADOB: 4 (79 yo M)Acc No.[id number]:10/30/2023 Progress Notes Patient: MARIANNE DELGADO Provider: Lissette Avalos MD :1945 A ge:78 Y S ex:Male Date:10/30/2023 Address:[place], [address] [place], [place] [id number] Pcp:Jamison Winn MD Subjective: * Chief Complaints: * B arretts esophagus * The named appointment provid er may or may not be the originator of this progress note, and it is not deemed complete until electronically signed by the appointment provider. Sign off status: Pending * Provider: Lissette Avalos MD Date: 0 10/30/2023 Generated for Néstor akers/Earle/eTmilagrossmitting on: 06/27/2024 05:22 PM EST
--- NOTE | 2025-04-26 14:00 | A.OFFVIS_ITS ---
Vital Signs 04/26/25 14:05 BP 110/52 L Blood Pressure Location Lt brachial Position Sitting Pulse 69 Pulse Source Monitor Intake Visit Reasons: 6m follow up w device ck Can Dragger Required: No Redevelopment Specialist: Redevelopment Specialist Present Allergies lisinopril (LISINOPRIL) Allergy (Mild, Verified 04/26/25 14:00) UNKNOWN baclofen (BACLOFEN) Allergy (Unknown, Verified 04/26/25 14:00) UNKNOWN shellfish derived (SHELLFISH DERIVED) Allergy (Unknown, Verified 04/26/25 14:00) UNKNOWN cephalexin (From Keflex) Allergy (Verified 04/26/25 14:00) Unknown Medication List - Last Reconciled 04/26/25 by RUBI Lopez acetaminophen 650 mg PO BID MDD 3g allopurinol 50 mg PO DAILY amiodarone 200 mg PO DAILY atorvastatin 40 mg PO BEDTIME 90 days cholecalciferol (vitamin D3) 50 mcg PO DAILY clopidogrel 75 mg PO DAILY 90 days ferrous sulfate 325 mg PO DAILY Lactobacillus acidoph-L.bulgar 1 million cell 1 tab PO TID loratadine 10 mg PO BEDTIME lorazepam 0.5 mg PO DAILY@1600 lorazepam 0.5 mg PO Q6H PRN melatonin 3 mg PO BEDTIME metoprolol succinate ER 25 mg PO DAILY mirtazapine 30 mg PO BEDTIME multivitamin 1 tab PO DAILY nystatin 1 appl topical BID pantoprazole 40 mg PO BID@0630,1630 sertraline 50 mg PO DAILY tamsulosin (Flomax) 0.4 mg PO BEDTIME thiamine HCl (vitamin B1) 100 mg PO DAILY HPI HPI 6m follow up w device ck: Details: Clifford is an 79-year-old male with past medical history of dementia, carotid stenosis, CAD, systolic heart failure, Mobitz 1 AV block, junctional bradycardia, with Saint Jeff dual-chamber pacemaker placement 09/24/2024, very frequent ventricular ectopy and now on amiodarone, who was recently admitted to [facility] with febrile illness treated for UTI, bacteremia, sepsis, CLARK on CKD, Congestive heart failure. He was seen by Cardiology while inpatient. An echocardiogram from 03/29/2025 showed EF 50-55%, mild increase in the RV size. He was not discharged with diuretics. He now presents for follow-up. Today he reports he has been doing well since his last visit. He has history of dementia so unclear accuracy of his answers but he denies any concerning symptoms. He chest discomfort, shortness of breath, heart palpitations, lightheadedness. He is sitting in a wheelchair at this visit. He is mostly sedentary and ambulates short distances with a walker. He has a staff member from his custodial facility with him. [facility] Medical History Alzheimer disease Cerebral atrophy Intracranial atherosclerosis Carotid stenosis Hypertension TIA (transient ischemic attack) CKD (chronic kidney disease) New onset of congestive heart failure Diverticulitis Dementia Hoffman esophagus Malignant neoplasm of prostate Cirrhosis of liver Surgical History H/O radical prostatectomy Family History Father CAD (coronary artery disease) Social History Household Members: None Housing: Other Housing Other:: [facility] Do you presently have visiting nurse or other home services: No Alcohol intake: former Patient Tobacco Use Status: Never used Tobacco Advance Directives Date on File: 12/22/21 service: Yes Current occupational status: retired Review of Systems Const Unobtainable due to mental condition (Dementia - Pt answers all questions but unsure of accuracy of answers) ENT Denies dizziness Card Denies chest pain, Denies chest pain at rest, Denies chest pain with activity, Denies rapid heart rate, Denies pedal edema, Denies edema, Denies leg edema, Denies lightheadedness, Denies palpitations, Denies dyspnea, Denies dyspnea on exertion and Denies orthopnea Resp Denies cough, Denies dyspnea and Denies dyspnea on exertion GI Denies hematochezia and Denies change in stool character Musc Denies abnormal gait, Denies limited range of motion, Denies muscle cramps, Denies muscle weakness, Denies numbness, Denies radiating pain into limb, Denies stiffness and Denies tingling Neuro Denies abnormal gait, Denies dizziness, Denies numbness and Denies tingling Endo Denies palpitations Physical Exam Vital Signs: Last Vital Signs Pulse 69 04/26/25 14:05 BP 110/52 L 04/26/25 14:05 Const General: cooperative, healthy appearing, comfortable and no acute distress Orientation/consciousness: oriented to person Neck Neck: Yes normal visual inspection Resp Effort & Inspection: normal respiratory effort Auscultation: clear to auscultation bilaterally, no rales, no rhonchi and no wheezes Cardio Rate: regular rate Rhythm: regular rhythm Heart sounds: S1 normal heart sound present, S2 normal heart sound present, no gallops, no murmurs and no rubs Neuro General: oriented to person Extrem General: Yes normal to inspection and No no pedal edema Psych Appearance: grossly normal Mental Status: mental status grossly normal Speech and movement: Normal speech and movement present Office Procedures Cardiac Device Check Cardiac Device Check Details: Saint Jeff dual-chamber pacemaker interrogation today shows battery 9.9 years, DDD mode, low rate 60, atrial threshold 0.75 volts at 0.4 milliseconds, ventricu lar threshold 0.75 volts at 0.4 milliseconds, a paced 49%, V paced greater than 99%, [place] [address]-VB Cardiac Device Check, pacemaker dual lead Procedure code (CPT) selection complete EKG Details: Today, read by me, atrial sensed and ventricular paced, rate 69 [id number], Complete Assessment & Plan Assessment & Plan (1) Cardiomyopathy: Code(s): I42.9 - Cardiomyopathy, unspecified Category: Medical Plan: History of Cardiomyopathy with prior EF 40-45%, that is being managed medically, in patient with history of dementia. [place] [facility] [place] for [place]TI, bacteremia, sepsis with some Congestive heart failure however not requiring diuretics at time of discharge. No clinical signs of heart failure on examination today. Echo done while inpatient showed EF 50-55%, mild LVH, mild increase in the RV size and normal RV systolic function. Continue metoprolol XL for neurohormonal modulation. He is not on Tam or Arb due to CKD, last creatinine 2.05. (2) Heart block: Code(s): I45.9 - Conduction disorder, unspecified Category: Medical Plan: History of Mobitz 1, junctional then third-degree heart block. Saint Jeff dual- chamber pacemaker placement 09/24/2024. (3) Pacemaker: Comment: Saint Jeff dual-chamber pacemaker 09/24/2024 Code(s): Z95.0 - Presence of cardiac pacemaker Category: Medical Plan: Pacemaker interrogation today shows device is functioning normally. Battery 9.9 years. Remote monitoring in use. Next office interrogation due in 6 months. (4) Atherosclerotic cardiovascular disease: Code(s): I25.10 - Atherosclerotic heart disease of [place] coronary artery without angina pectoris Category: Medical Plan: Prior NSTEMI that was managed medically. He likely has some degree of coronary artery disease. Recent echo showing low normal EF and no regional wall motion abnormalities. He has dementia, denies any anginal symptoms and he is mostly sedentary. Continue atorvastatin with LDL goal less than 70. Continue Plavix and metoprolol. Signs and symptoms of angina reviewed with him. (5) Hospital discharge follow-up: Code(s): Z09 - Encounter for follow-up examination after completed treatment for conditions other than malignant neoplasm Category: Medical Plan: Discharge summary and cardiology notes reviewed. (6) Frequent PVCs: Code(s): I49.3 - Ventricular premature depolarization Category: Medical Plan: While at [facility] last September the discharge note indicates they were starting amiodarone due to frequent PVCs and to decrease the PVC burden. He continues on amiodarone 200 mg daily. His EKG last visit does not show PVCs. There are no alerts on his pacemaker interrogation. Labs done 04/05/2025 showed AST 27, ALT 24. Labs 10/28/2024 TSH 3.55. Recommend recheck of TSH with next labs, order placed. No med changes at this time. Plan I discussed with the patient that the pacemaker is functioning well with a battery life of about 10 years and that the EKG today was normal. We reviewed the patient's good current status following a recent hospitalization for a UTI, sepsis. I reinforced the need for a low-salt diet to manage the patient's history of a mild Congestive heart failure in order to help prevent fluid buildup. I advised the patient to seek care if any chest pain or trouble breathing occurs. A follow-up visit is scheduled for six months to re-check the pacemaker. Orders: Orders TSH reflex Free T4 Today I49.3 - Ventricular premature depolarization Patient Instructions: - Continue to take all your medications as prescribed. - Continue to follow a low-salt diet and do not add extra salt to your food. - Let someone know right away if you start to have chest pains or trouble breathing. - You will need to return for a follow-up appointment in six months to check your pacemaker again. Patient was informed and verbally consented to the use of an ambient scribe for clinic note documentation during this visit. Visit time spent on chart review, interview, assessment, orders, documentation. Coding Level of Care Code Est Pt Level 4 (38724) Complex visit Add On G2211 Diagnoses Cardiomyopathy I42.9 Heart block I45.9 Pacemaker Z95.0 Atherosclerotic cardiovascular disease I25.10 Hospital discharge follow-up Z09 Frequent PVCs I49.3 CPT Codes Cardiac Device Check - Cardiac Device 2: 50553-WC Cardiac Device Check, pacemaker dual lead ([id number]) EKG - CPT: 71320-[id number], Complete ([id number]) Time Spent (min) 28
[2025-04-26 14:05] VITALS: BP 110/52; PULSE 69
--- OUTSIDE RECORDS SUMMARY | 2025-04-26 17:21 | XMS_ITS | Clinical Summary ---
Author Organization [facility] Address [address] [place] [address] Care Team Providers Care Vat Skimmer Name Role Phone Pcp, No Primary Care [...] drink = 0.6 oz pur e alcohol) [facility] Utilities Answer Date Recorded In the past [...] any time in the past 12 m [facility], were you homeless or living in a longterm (including now)? Patient unable to answer 09/22/2024 [...] this topic Medical Devices Implanted Type Area Verifying Specialist Device Identifier Shelf Expiration Date Model / Serial / Lot 2088tc/58 Lead Pacing 58cm 6fr Hlx Ecrdm Bipolar Actfx Xtd Is 1 Tndrl - [id number] Implanted:Qty : 1 on 09/24/2024 by Lonnie Mehta MD at [facility] Lead N/A: Heart [employer] [id number] 06/26/20272087TC/58 / [id number] / Lead Pacing 52cm 6fr Hlx Ecrdm Bipolar Actfx Is-1 Conn Xtd - [id number] Implanted:Qty : 1 on 09/24/2024 by Lonnie Mehta MD at [facility] Lead N/A: Heart [employer] [id number] 06/26/2027 / [id number] / [id number] Pacemaker Cardiac Thk6mm Assurity Mri 2 Chamber Pls Gntr - [id number] Implanted:Qty : 1 on 09/24/2024 by Lonnie Mehta MD at [facility] Pacemaker Left: Chest Wall [employer] [id number] 01/24/2026 [id number] / [id number] / [place] [id number] Advance Directives Documents on File Type Date Recorded Patient Portfolio Strategist Expl anation Advance Directive-Scan 2024 1:55 PM [...] Decision Thoroughly Discussed with: Legally Auth orized Portfolio Strategist Name of Legally Authorized Portfolio Strategist: Yoon soriano * DNR Date Activated Date Inactivated Comments 09/22/2024 3:16 AM 09/24/2024 11:27 AM Question Answer Comments Decision thoroughly discussed with: Sherly ent arrived with valid [place] DNR Transfer form Care Teams Vat Skimmer Relationship Specialty Start Date End Date Pcp, No PCP - General General Medicine 11/01/24
--- OUTSIDE RECORDS SUMMARY | 2025-04-26 17:21 | XMS_ITS | Encounter Summary ---
Author Organization [facility] Address [address] [place] [address] Care Team Providers Care Internet Sourcer Name Role Phone Pcp, No Primary Care Provider Unavailabl e Encounter Details Date Type Department Care Team (Latest Contact Info) Description 09/21/2024 Hospital Encounter Social History Tobacco Use Types Packs/Day Years Used Date Smoking Tobacco: Never Smokeless Tobacco: Never Alcohol Use Standard Drinks/Week Comments Not Currently 0 (1 standard drink = 0.6 oz pur e alcohol) [facility] Utilities Answer Date Recorded In the past 12 months has e [employer], gas, oil, or water [employer] threatened to shut off services in your [...] any time in the past 12 m [facility], were you homeless or [...] on filedocumented in this encounter Care Teams Internet Sourcer Relationship Specialty Start Date End Date Pcp, No PCP - General General Medicine 6/8/25 documented as of this encounter
--- OUTSIDE RECORDS SUMMARY | 2025-04-26 17:21 | XMS_ITS | Encounter Summary ---
Author Organization [employer] Address [address] [facility] [address] [place] [address] Care Team Providers Care Any Commodity Sales Deliverer Name Role Phone Unavailable Primary Care Provider Unavailabl e Encounter Details Date Type Department Care Team (Late st Contact Info) Description 06/20/2023 Abstract [facility] [address] [place] [address] Robin Pastor, ANEESH [address] [place] [address] Social History Tobacco Use Types Packs/Day Years [...]
--- OUTSIDE RECORDS SUMMARY | 2025-04-26 17:21 | XMS_ITS | Encounter Summary ---
Author Organization [employer] Address [address] [facility] [address] [place] [address] Care Team Providers Care Baby Stroller Rental Clerk Name Role Phone Unavailable Primary Care Provider Unavailabl e Encounter Details Date Type Department Care Team (Late st Contact Info) Description 06/20/2023 Abstract [facility] [address] [place] [address] Robin Pastor, ANEESH [address] [place] [address] Social History Tobacco Use Types Packs/Day Years [...]
--- OUTSIDE RECORDS SUMMARY | 2025-04-26 17:21 | XMS_ITS | Encounter Summary ---
Author Organization [employer] Address [address] [facility] [address] [place] [address] Care Team Providers Care Cover Maker Name Role Phone Unavailable Primary Care Provider Unavailabl e Encounter Details Date Type Department Care Team (Late st Contact Info) Description 05/03/2023 Abstract [facility] [address] [place] [address] Robin Pastor, ANEESH [address] [place] [address] Social History Tobacco Use Types Packs/Day Years [...]
--- OUTSIDE RECORDS SUMMARY | 2025-04-26 17:22 | XMS_ITS | Clinical Summary ---
Author Organization [employer] Address [address] [facility] [address] [place] [address] Care Team Providers Care Solid Surface Fabricator Name Role Phone Unavailable Primary Care Provider [...]
--- OUTSIDE RECORDS SUMMARY | 2025-04-26 17:22 | XMS_ITS | Encounter Summary ---
Author Organization [employer] Address [address] [facility] [address] [place] [address] Care Team Providers Care Laboratory Chemical Assistant Name Role Phone Unavailable Primary Care Provider Unavailabl e Encounter Details Date Type Department Care Team (Latest Contact Info) Description 01/03/2022 Abstract [facility] CONVERSIONS Dental, Provider, DDS Social [...]
== END 2025-04-26 14:22 | disposition home or self-care (01) ==
LOC: HO.HCS 13:55
PROVIDERS: PCP Nurse Practitioner; Visit Provider Nurse Practitioner Family
DX: I42.9 Cardiomyopathy, unspecified (principal); I45.9 Conduction disorder, unspecified; Z95.0 Presence of cardiac pacemaker; I25.10 Atherosclerotic heart disease of native coronary artery without angina pectoris; Z09 Encounter for follow-up examination after completed treatment for conditions other than malignant neoplasm; I49.3 Ventricular premature depolarization
CPT/HCPCS: 93010; 93280; 99214; G2211

== ENCOUNTER → 2025-04-26 13:55 | Outpatient (BNVA) | payer MEDICARE, SELFPAY | PROVIDERS: PCP Nurse Practitioner; Visit Provider Nurse Practitioner Family | DX: I42.9 Cardiomyopathy, unspecified (principal); I49.3 Ventricular premature depolarization; Z09 Encounter for follow-up examination after completed treatment for conditions other than malignant neoplasm; I45.9 Conduction disorder, unspecified; Z95.0 Presence of cardiac pacemaker | CPT/HCPCS: 93005; 93280; 99212 ==

== ENCOUNTER 2025-05-16 11:59 | Emergency (ER) | payer MEDICARE, SELFPAY ==
--- NOTE | ~2025-05-16 | CT_ITS ---
CLINICAL HISTORY: constipation liquid stool --- Additional Notes or Special Instructions: went to get at 1330. pt needed to be cleaned up CT abdomen and pelvis without IV contrast. COMPARISON: CT abdomen and pelvis dated 03/27/25 at 13:[address] chest dated 03/27/25 at 13:[address] abdomen and pelvis dated 12/13/24 at 08:[address] abdomen and pelvis dated 12/18/21 at 11:53 EDT FINDINGS: Moderate hiatal hernia. Minimal atelectasis along the posterior lower lobes. Several small bilateral pulmonary nodules, not definitively seen on prior imaging of the possibly obscured secondary to motion and consolidation on prior imaging. For example left lower lobe subpleural 3 mm pulmonary nodule (series 4, image 86). Right middle lobe 3 mm pulmonary nodule (series 4, image 81). Right lower lobe 7 mm pulmonary nodule (series 4, image 48). Coronary artery calcifications present within the LAD. Aortic annular and mitral annular calcifications. Cholecystectomy. Noncontrast appearance of the liver, spleen, pancreas and adrenal glands are unremarkable. Atrophic kidneys. No hydronephrosis or hydroureter bilaterally. Normal appendix. Fluid-filled loops of nondilated large bowel. Mild distal colonic diverticulosis without evidence of diverticulitis. No mesenteric or retroperitoneal lymphadenopathy. Moderate aortoiliac atherosclerotic vascular calcifications. Normal appearance of the urinary bladder. Multiple surgical clips present along the prostate bed. No inguinal lymphadenopathy. Grade 1 anterolisthesis of L5 on S1 secondary to chronic bilateral pars defects at L5, stable. Advanced multilevel spondylosis most pronounced in the lower lumbar spine. No acute fracture or suspicious bone lesion. IMPRESSION: 1. Fluid-filled loops of nondilated large bowel can be associated with a viral colitis. No bowel obstruction. 2. Colonic diverticulosis without evidence of diverticulitis. 3. Pulmonary nodules along the partially visualized lung bases measuring up to 7 mm. These were obscured on prior imaging secondary to motion and areas of consolidation. Recommend follow-up imaging in 3-6 months. This document has been electronically signed by: Mynor El MD on 05/16/2025 14:47:07
[2025-05-16 12:06] VITALS: BP 161/73; BP 164/64; PULSE 60; PULSE 61; RESP 18; TEMP 36.5; O2SAT 97; O2SAT 99; BMI 26.0
[2025-05-16 12:15] VITALS: BP 147/66; PULSE 60; RESP 18; O2SAT 96
--- NOTE | 2025-05-16 12:27 | ED.GENADULT ---
HPI - General Adult General Chief complaint: Abdominal Pain Stated complaint: CONSTIPATION HARD/DISTENDED ABD Time Seen by Provider: 05/16/25 12:20 Source: patient, EMS, RN notes reviewed and old records reviewed Mode of arrival: EMS History of Present Illness ED Provider: Jeannie HPI narrative: Patient is an 79-year-old male with history of Alzheimer's disease, pacemaker, history of prostate cancer, CVA, cardiomyopathy, NSTEMI, systolic CHF, atherosclerotic cardiovascular disease presenting to the emergency department via EMS from the [facility] for evaluation of constipation and loose watery stools. Staff reported to EMS the patient has not had a normal bowel movement for the past month. They report he has been having loose watery stools. And complains of generalized abdominal pain and also notes that he has not had a normal bowel movement in some time. He denies any pain with urination. Denies any pain to other areas. He denies any nausea or vomiting. Staff report patient is alert and oriented to self at baseline. MD complaint: abdominal pain Related Data Home Medications ?Medication ?Instructions ?Recorded ?Confirmed allopurinol 100 mg tablet 50 mg PO DAILY 12/18/21 04/26/25 cholecalciferol (vitamin D3) 50 50 mcg PO DAILY 12/18/21 04/26/25 mcg (2,000 unit) tablet loratadine 10 mg tablet 10 mg PO BEDTIME 12/18/21 04/26/25 pantoprazole 40 mg tablet,delayed 40 mg PO BID@0630,1630 06/17/23 04/26/25 release mirtazapine 30 mg tablet 30 mg PO BEDTIME 03/02/24 04/26/25 multivitamin 1 tab PO DAILY 05/06/24 04/26/25 thiamine HCl (vitamin B1) 100 mg 100 mg PO DAILY 05/06/24 04/26/25 tablet acetaminophen 325 mg tablet 650 mg PO BID 05/28/24 04/26/25 sertraline 50 mg tablet 50 mg PO DAILY 07/29/24 04/26/25 tamsulosin 0.4 mg capsule (Flomax) 0.4 mg PO BEDTIME 07/29/24 04/26/25 amiodarone 200 mg tablet 200 mg PO DAILY 10/23/24 04/26/25 ferrous sulfate 325 mg (65 mg 325 mg PO DAILY 12/13/24 04/26/25 iron) tablet metoprolol succinate 25 mg 25 mg PO DAILY 12/13/24 04/26/25 tablet,extended release 24 hr Lactobacillus acidoph-L.bulgaricus 1 tab PO TID 04/19/25 04/26/25 1 million cell tablet lorazepam 0.5 mg tablet 0.5 mg PO DAILY@1600 04/19/25 04/26/25 lorazepam 0.5 mg tablet 0.5 mg PO Q6H PRN Anxiety 04/19/25 04/26/25 melatonin 3 mg tablet 3 mg PO BEDTIME 04/19/25 04/26/25 nystatin 100,000 unit/gram topical 1 appl topical BID 04/19/25 04/26/25 powder Previous Rx's ?Medication ?Instructions ?Recorded atorvastatin 40 mg tablet 40 mg PO BEDTIME 90 days #90 tabs 05/08/24 clopidogrel 75 mg tablet 75 mg PO DAILY 90 days #90 tabs 05/08/24 Allergies Allergy/AdvReac Type Severity Reaction Status Date / Time lisinopril (LISINOPRIL) Allergy Mild UNKNOWN Verified 05/16/25 12:08 baclofen (BACLOFEN) Allergy Unknown UNKNOWN Verified 05/16/25 12:08 shellfish derived (SHELLFISH Allergy Unknown UNKNOWN Verified 05/16/25 12:08 DERIVED) cephalexin (From Keflex) Allergy Unknown Verified 05/16/25 12:08 Review of Systems Review of Systems: As per HPI Yes all other systems are reviewed and are negative Constitutional: Constitutional: Reports as per HPI [facility] Past Medical History Medical History Alzheimer disease Cerebral atrophy Intracranial atherosclerosis Carotid stenosis Hypertension TIA (transient ischemic attack) CKD (chronic kidney disease) New onset of congestive heart failure Diverticulitis Dementia Hoffman esophagus Malignant neoplasm of prostate Cirrhosis of liver Surgical History H/O radical prostatectomy Family History Family History Father CAD (coronary artery disease) Social History Social History Household Members: None Housing: Other Housing Other:: [facility] Do you presently have visiting nurse or other home services: No Alcohol intake: former Patient Tobacco Use Status: Never used Tobacco Use of substances other than those prescribed or required for medical reasons: Unable to respond Advance Directives: Yes Advance Directives on File: Yes Advance Directives Date on File: 12/22/21 service: Yes Current occupational status: retired Physical Exam ED Vital Signs: Vital Signs - 24 hr 05/16/25 12:06 05/16/25 12:15 05/16/25 13:22 Temperature 97.7 F Pulse Rate 61 60 60 Respiratory Rate 18 18 20 Blood Pressure 164/64 H 147/66 H 155/68 H Pulse Oximetry 97 96 95 Oxygen Delivery Method Room Air Room Air Room Air 05/16/25 16:49 Temperature 97.5 F Pulse Rate 63 Respiratory Rate 16 Blood Pressure 181/72 H Pulse Oximetry 97 Oxygen Delivery Method Room Air BMI result Body Mass Index 26.0 Vital signs have been reviewed and appear to be correct. Blood pressure normal. Heart rate normal. Respiratory rate normal. Temperature normal. Oxygen saturation normal. Const General: cooperative, healthy appearing and no acute distress Orientation/consciousness: oriented to person [facility] Head: Yes normocephalic and Yes atraumatic Ears: external ears normal General nose exam: Normal external nose present Face and sinus: Yes face symmetric Mouth: oropharynx normal and moist mucous membranes Throat: Yes uvula midline Eyes Pupils: Equal, round and reactive pupils present Neck Neck: Yes normal visual inspection and Yes supple Resp Effort & Inspection: normal respiratory effort and able to speak in complete sentences Auscultation: clear to auscultation bilaterally Cardio Rate: regular rate Rhythm: regular rhythm Heart sounds: S1 normal heart sound present and S2 normal heart sound present GI Inspection: Yes distended Palpation (GI): Soft to palpation, Firmness to palpation present (GI) (diffuse), Tenderness to palpation present (GI) (mild diffuse tenderness), no guarding and No Rebound tenderness present Auscultation: normoactive bowel sounds General: Yes no CVA tenderness Back/Spine/Pelvis Back: no CVA tenderness Skin General skin exam: elasticity normal and turgor normal Neuro General: oriented to person, tone normal, moves all extremities, no focal motor deficits and CN's II-XI intact bilaterally Cranial nerves: Yes Equal, round and reactive pupils present Cognition (Neuro): normal cognition Extrem General: Yes full ROM, Yes no pedal edema and Yes no calf tenderness Psych Mental Status: mental status grossly normal Affect: normal affect Thought process: Normal thought process present Medical Decision Making Medical Decision Making [facility] Narrative: 79-year-old male with history of Alzheimer's disease, pacemaker, history of prostate cancer, CVA, cardiomyopathy, NSTEMI, systolic CHF, atherosclerotic cardiovascular disease presenting to the emergency department via EMS from the [facility] for evaluation of constipation and loose watery stools. On exam patient is awake, A+Ox3, VS WNL, afebrile, normal neurological exam without focal deficits, physical exam findings as above. Given reported symptoms and physical exam findings, initial differential includes but is not limited to fecal impaction with overflow diarrhea, chronic idiopathic constipation, diverticulitis, bowel obstruction, malignancy/mass. Labs appear to be at baseline. CT abdomen/pelvis is without evidence of bowel obstruction or diverticulitis. Pulmonary nodules noted which were obscured on prior imaging. My interpretation is in agreement with the radiologist's interpretation. Will administer soapsuds enema. Patient able to have small BM. Unable to obtain urine specimen while patient in the ED, however, he is without any urinary complaints. Feel he is stable for return to the [facility]. Results of CT included on discharge instructions. Differential Diagnosis Differential Diagnoses: The differential diagnosis associated with the presentation includes as per [facility] Admission/Observation Consideration of admission/observation: Escalation of care including admission/observation considered Patient would have been admitted to the hospital and transferred to appropriate facility had their clinical presentation warranted hospital admission. Lab Data [facility] Lab Attestation statement: I reviewed the patient's lab results. as per [facility] 05/16/25 12:48 05/16/25 12:48 Labs: Lab Results 05/16/25 Range/Units 12:48 WBC 6.9 (4.8-10.8) X10*3/uL RBC 4.48 L (4.60-5.80) X10*6/uL Hgb 13.0 L (14.0-18.0) g/dl Hct 39.5 L (42.0-52.0) % MCV 88.2 (80.0-98.0) fL MCH 29.0 (27.0-33.0) pg MCHC 32.9 (31.0-36.0) g/dl RDW 15.3 (11.0-16.0) % Plt Count 146 L (160-400) X10*3/uL MPV 9.7 (9.4-12.4) fL Immature Gran % (Auto) 0.7 H (0.0-0.4) % Neut % (Auto) 62.8 (45-73) % Lymph % (Auto) 18.6 L (20-40) % Teller % (Auto) 8.6 (2-11) % Eos % (Auto) 8.6 H (0-4) % Baso % (Auto) 0.7 (0-2) % Lymph # (Auto) 1.3 (1.2-4.9) X10*3/uL Teller # (Auto) 0.6 (0.1-1.2) X10*3/uL Eos # (Auto) 0.6 H (0.0-0.4) X10*3/uL Baso # (Auto) 0.1 (0.0-0.2) X10*3/uL Abs Immat Gran (auto) 0.05 H (0.00-0.03) X10*3/uL Absolute Neuts (auto) 4.3 (2.0-8.3) x10*3/uL Absolute Nucleated RBC 0.000 (0.0-0.012) X10*3/uL Nucleated RBC % (auto) 0.0 (0.0-0.2) /100WBC Sodium 142 (135-145) mmol/L Potassium 4.2 (3.3-5.1) mmol/L Chloride 116 H (96-108) mmol/L Carbon Dioxide 18 L (22-29) mmol/L Anion Gap 12 (12-20) BUN 18 H (9-16) mg/dL Creatinine 1.78 H (0.5-1.4) mg/dL Estim Creat Clear Calc 31.4 Estimated GFR 37 Random Glucose 101 (60-115) mg/dL Calcium 9.2 D (8.4-10.2) mg/dL Magnesium 2.1 (1.6-2.6) mg/dL Total Bilirubin 0.4 (0.0-1.0) mg/dL AST 20 (5-37) U/L ALT 18 (0-40) U/L Alkaline Phosphatase 88 (39-117) U/L Total Protein 6.5 (6.5-8.0) g/dL Albumin 4.1 (3.5-5.0) g/dL Influenza Type A (PCR) NEGATIVE (Negative) Influenza Type B (PCR) NEGATIVE (Negative) RSV RNA Qual (PCR) NEGATIVE (Negative) SARS-CoV-2 RNA (RT-PCR) NEGATIVE (Negative) Independent Interpretation I performed an independent interpretation of an: CT Scan Interpretation: CT abdomen/pelvis is without evidence of bowel obstruction or diverticulitis. Pulmonary nodules noted which were obscured on prior imaging. Radiology Impression Discussion of test interpretation with radiology: I have reviewed the radiologist's reading. Radiologist Impression: IMPRESSION: 1. Fluid-filled loops of nondilated large bowel can be associated with a viral colitis. No bowel obstruction. 2. Colonic diverticulosis without evidence of diverticulitis. 3. Pulmonary nodules along the partially visualized lung bases measuring up to 7 mm. These were obscured on prior imaging secondary to motion and areas of consolidation. Recommend follow-up imaging in 3-6 months. External Record Review External record reviewed: Inpatient record, Office record and Outpatient record Discharge Plan Discharge Clinical Impression: Constipation Patient Disposition: er [facility] Transfer Details: return to [facility] Instructions: Constipation (DC) Additional Instructions: Clifford was seen in the emergency department today for constipation. His CT scan was without any acute abnormalities, however, it was notable for pulmonary nodules along the lung bases, and follow up regarding this is recommended within the next 3-6 months (CT results below). His labs were reassuring and he was given an enema in the emergency department today. He should follow up with his primary care provider. He should return to the emergency department with any new abdominal pain, fever 100.4 F or greater, vomiting, blood in his urine or stool or any other new or concerning symptoms. FINDINGS: Moderate hiatal hernia. Minimal atelectasis along the posterior lower lobes. Several small bilateral pulmonary nodules, not definitively seen on prior imaging of the possibly obscured secondary to motion and consolidation on prior imaging. For example left lower lobe subpleural 3 mm pulmonary nodule (series 4, image 86). Right middle lobe 3 mm pulmonary nodule (series 4, image 81). Right lower lobe 7 mm pulmonary nodule (series 4, image 48). Coronary artery calcifications present within the LAD. Aortic annular and mitral annular calcifications. Cholecystectomy. Noncontrast appearance of the liver, spleen, pancreas and adrenal glands are unremarkable. Atrophic kidneys. No hydronephrosis or hydroureter bilaterally. Normal appendix. Fluid-filled loops of nondilated large bowel. Mild distal colonic diverticulosis without evidence of diverticulitis. No mesenteric or retroperitoneal lymphadenopathy. Moderate aortoiliac atherosclerotic vascular calcifications. Normal appearance of the urinary bladder. Multiple surgical clips present along the prostate bed. No inguinal lymphadenopathy. Grade 1 anterolisthesis of L5 on S1 secondary to chronic bilateral pars defects at L5, stable. Advanced multilevel spondylosis most pronounced in the lower lumbar spine. No acute fracture or suspicious bone lesion. IMPRESSION: 1. Fluid-filled loops of nondilated large bowel can be associated with a viral colitis. No bowel obstruction. 2. Colonic diverticulosis without evidence of diverticulitis. 3. Pulmonary nodules along the partially visualized lung bases measuring up to 7 mm. These were obscured on prior imaging secondary to motion and areas of consolidation. Recommend follow-up imaging in 3-6 months. Prescriptions: No Action allopurinol 100 mg Tablet 50 mg PO DAILY loratadine 10 mg Tablet 10 mg PO BEDTIME cholecalciferol (vitamin D3) 50 mcg (2,000 unit) Tablet 50 mcg PO DAILY acetaminophen 325 mg Tablet 650 mg PO BID MDD 3g ferrous sulfate 325 mg (65 mg iron) Tablet 325 mg PO DAILY metoprolol succinate 25 mg Tablet Extended Release 24 Hr 25 mg PO DAILY multivitamin Tablet 1 tab PO DAILY thiamine HCl (vitamin B1) 100 mg Tablet 100 mg PO DAILY clopidogrel 75 mg Tablet 75 mg PO DAILY 90 Days Qty: 90 0RF atorvastatin 40 mg Tablet 40 mg PO BEDTIME 90 Days Qty: 90 0RF nystatin 100,000 unit/gram Powder 1 appl TOPICAL BID Rx Instructions: APPLY TO MAUREEN AREA X 14 DAYS melatonin 3 mg Tablet 3 mg PO BEDTIME lorazepam 0.5 mg Tablet 0.5 mg PO DAILY@1600 lorazepam 0.5 mg Tablet 0.5 mg PO Q6H PRN (Reason: Anxiety) Lactobacillus acidoph-L.bulgar 1 million cell Tablet 1 tab PO TID pantoprazole 40 mg tablet,delayed release (DR/EC) 40 mg PO BID@0630,1630 tamsulosin [Flomax] 0.4 mg capsule 0.4 mg PO BEDTIME sertraline 50 mg tablet 50 mg PO DAILY amiodarone 200 mg tablet 200 mg PO DAILY mirtazapine 30 mg tablet 30 mg PO BEDTIME Print Language: Cape Verdean
--- OUTSIDE RECORDS SUMMARY | 2025-05-16 12:29 | XMS_ITS | Encounter Summary ---
Author Organization [facility] Address [address] [place] [address] Care Team Providers Care Document Control Manager Name Role Phone Pcp, No Primary Care Provider Unavailabl e Encounter Details Date Type Department Care Team (Latest Contact Info) Description 09/21/2024 Hospital Encounter Social History Tobacco Use Types Packs/Day Years Used Date Smoking Tobacco: Never Smokeless Tobacco: Never Alcohol Use Standard Drinks/Week Comments Not Currently 0 (1 standard drink = 0.6 oz pur e alcohol) [facility] Utilities Answer Date Recorded In the past 12 months has e [employer], gas, oil, or water [employer] threatened to shut off services in your [...] in the past 12 m [facility], were you homeless or living in [...] on filedocumented in this encounter Care Teams Document Control Manager Relationship Specialty Start Date End Date Pcp, No PCP - General General Medicine 6/8/25 documented as of this encounter
--- OUTSIDE RECORDS SUMMARY | 2025-05-16 12:29 | XMS_ITS | Encounter Summary ---
Author Organization [employer] Address [address] [facility] 7[address] [place] [address] Care Team Providers Care Air Tester Name Role Phone Unavailable Primary Care Provider Unavailabl e Encounter Details Date Type Department Care Team (Late st Contact Info) Description 06/20/2023 Abstract [facility] [address] [place] [address] Robin Pastor, ANEESH [address] [place] [address] Social History Tobacco Use Types Packs/Day Years [...]
--- OUTSIDE RECORDS SUMMARY | 2025-05-16 12:29 | XMS_ITS | Clinical Summary ---
Author Organization [employer] Address [address] [facility] 7t [place] [address] Care Team Providers Care Construction Technician Name Role Phone Unavailable Primary Care [...]
--- OUTSIDE RECORDS SUMMARY | 2025-05-16 12:29 | XMS_ITS | Patient Health Record ---
Author Organization [facility] Address [address] [place] [address] Care Team Providers Care Records Management Clerk Name Role Phone Jamison Winn MD Primary Care Provider Lc Coronado [phone] Allergies Allergen (clinical drug ingredient) Drug/Non Drug [...] Status W/U Status Risk Notes Problem Gallstones (797198315) Gallstones (K80.20) Active confirmed Problem Cirrhotic (493581337) Cirrhosis (K74.60) Active confirmed Problem Alcoholic cirrhosis of liver (790875194) Alcoholic cirrhosis of liver (K70.30) Active confirmed Problem Hoffman esophagus (281630796) 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 Problem Gastroesophageal reflux disease (disorder) (190280839) Chronic GERD (K21.9) Active confirmed Vital Signs Temperature 97.5 degrees Fahrenheit 02/16/2025 Blood pressure diastolic 01 mm Hg 02/16/2025 Height 5Ft 9 In in 02/16/2025 Blood pressure systolic 001 mm Hg 02/16/2025 Weight 168.0 lbs 02/16/2025 BMI 24.81 kg/m2 02/16/2025 Encounters Encounter Location Date Provider Diagnosis [facility] [address] [place] [phone] 02/16/2025 Lc Avalos Chronic GERD K21.9 ; Hoffman esophagus K22.70 and Gallstones K80.20 [facility] [address] [place] [phone] 02/10/2025 Lc Avalos Assessments Encounter Date Diagnosis [...] to have participated in [facility]. Please do not hesitate to contact me if I can be of any further assistance in the future. 02/16/2025 Gallstones (ICD-10 - K80.20) You should be referred back to the surgeon at [facility] if you develop any right upper abdominal [...] to have participated in [facility]. Please do not hesitate to contact me if I can be of any further assistance in the future. Plan Of Treatment No Information Insurance Providers Payer Name Payer Address Payer Phone Subscriber Number Group Number Insured Name Patient Relationship to Insured Coverage Start Date Coverage End Date MEDICARE OF [facility] [address] [place] [id number] BENIGNO DAVILAFORD Self - patient is the insured Medical (General) History Medical History History ICD Code Coronary artery disease with previous [place] GERD was reported Hoffman's esophagus, although I [...] Surgery Date(Month/Year) [facility]ctomy [facility]
--- OUTSIDE RECORDS SUMMARY | 2025-05-16 12:29 | XMS_ITS | Encounter Summary ---
Author Organization [employer] Address [address] [facility] 7t [place] [address] Care Team Providers Care Drier Feeder Name Role Phone Unavailable Primary Care Provider Unavailabl e Encounter Details Date Type Department Care Team (Late st Contact Info) Description 05/03/2023 Abstract [facility] [address] [place] [address] Robin Pastor, ANEESH [address] [place] [address] Social History Tobacco Use Types Packs/Day Years [...]
--- OUTSIDE RECORDS SUMMARY | 2025-05-16 12:29 | XMS_ITS | Encounter Summary ---
Author Organization [employer] Address [address] [facility] [address] [place] [address] Care Team Providers Care Dam Operator Name Role Phone Unavailable Primary Care Provider Unavailabl e Encounter Details Date Type Department Care Team (Latest Contact Info) Description 01/03/2022 Abstract [facility] CONVERSIONS Dental, Provider, DDS Social History [...]
--- OUTSIDE RECORDS SUMMARY | 2025-05-16 12:29 | XMS_ITS | Encounter Summary ---
Author Organization [employer] Address [address] [facility] [address] [place] [address] Care Team Providers Care Material Flow Analyst Name Role Phone Unavailable Primary Care Provider Unavailabl e Encounter Details Date Type Department Care Team (Late st Contact Info) Description 06/20/2023 Abstract [facility] [address] [place] [address] Robin Pastor, ANEESH [address] [place] [address] Social History Tobacco Use Types Packs/Day Years [...]
--- OUTSIDE RECORDS SUMMARY | 2025-05-16 12:29 | XMS_ITS | Clinical Summary ---
Author Organization [facility] Address [address] [place] [address] Care Team Providers Care Rotary Drum Dyer Name Role Phone Pcp, No Primary Care [...] drink = 0.6 oz pur e alcohol) [facility] Utilities Answer Date Recorded In the past [...] any time in the past 12 m [facility], were you homeless or living in a penitentiary (including now)? Patient unable to answer 09/22/2024 [...] Vaccine 12/25/2024 02/12/2023 COVID-19 Vaccine ( - 2024-2 6 season) 2025 Advance Care Planning Completed 2024 Hepatitis B Vaccines Aged Out No long er eligible based on patient's age to complete this topic Medical Devices Implanted Type Area Audio Visual Project Manager Device Identifier Shelf Expiration Date Model / Serial / Lot [id number] Lead Pacing 58cm 6fr Hlx Ecrdm Bipolar Actfx Xtd Is 1 Tndrl - [id number] Implanted:Qty : 1 on 09/24/2024 by Lonnie Mehta MD at [facility] Lead N/A: Heart [employer] [id number] 06/26/20272087TC/[id number] / [id number] / Lead Pacing 52cm 6fr Hlx Ecrdm Bipolar Actfx Is-1 Conn Xtd - [id number] Implanted:Qty : 1 on 09/24/2024 by Lonnie Mehta MD at [facility] Lead N/A: Heart [employer] [id number] 06/26/2027 / [id number] / [id number] Pacemaker Cardiac Thk6mm Assurity Mri 2 Chamber Pls Gntr - [id number] Implanted:Qty : 1 on 09/24/2024 by Lonnie Mehta MD at [facility] Pacemaker Left: Chest Wall [employer] [id number] 01/24/2026 [id number] / [id number] / [place] [id number] Advance Directives Documents on File Type Date Recorded Patient Marketing Services Rep Expl anation Advance Directive-Scan 2024 1:55 PM [...] Decision Thoroughly Discussed with: Legally Auth orized Marketing Services Rep Name of Legally Authorized Marketing Services Rep: Yoon soriano * DNR Date Activated Date Inactivated Comments 09/22/2024 3:16 AM 09/24/2024 11:27 AM Question Answer Comments Decision thoroughly discussed with: Sherly ent arrived with valid State [place] DNR Transfer form Care Teams Rotary Drum Dyer Relationship Specialty Start Date End Date Pcp, No PCP - General General Medicine 11/01/24
[2025-05-16 12:53] LABS: MANUAL DIFF FLAG NO
[2025-05-16 13:05] LABS: Hematocrit 39.5 % (42.0-52.0); Hemoglobin 13.0 g/dl (14.0-18.0); Imm Gran Abs Auto 0.05 X10*3/uL (0.00-0.03); Imm Gran Pct Auto 0.7 % (0.0-0.4); Lymphocytes Absolute Auto 1.3 X10*3/uL (1.2-4.9); Mean Corpuscular HGB Conc 32.9 g/dl (31.0-36.0); Mean Corpuscular Hemoglobin 29.0 pg (27.0-33.0); Mean Corpuscular Volume 88.2 fL (80.0-98.0); NRBC Abs Auto 0.000 X10*3/uL (0.0-0.012); NRBC Pct Auto 0.0 /100WBC (0.0-0.2); Platelet Count 146 X10*3/uL (160-400); Red Blood Count 4.48 X10*6/uL (4.60-5.80); White Blood Count 6.9 X10*3/uL (4.8-10.8)
[2025-05-16 13:06] LABS: Alanine Aminotransferase 18 U/L (0-40); Albumin Level 4.1 g/dL (3.5-5.0); Alkaline Phosphatase 88 U/L (39-117); Anion Gap 12 (12-20); Aspartate Amino Transferase 20 U/L (5-37); Blood Urea Nitrogen 18 mg/dL (9-16); Calcium 9.2 mg/dL (8.4-10.2); Carbon Dioxide 18 mmol/L (22-29); Chloride 116 mmol/L (96-108); Creatinine Clr Calc Pharmacy 31.4; Estimated Glomerular Filt Rate 37; Magnesium 2.1 mg/dL (1.6-2.6); Potassium 4.2 mmol/L (3.3-5.1); Sodium 142 mmol/L (135-145); Total Protein 6.5 g/dL (6.5-8.0)
[2025-05-16 13:22] VITALS: BP 155/68; PULSE 60; RESP 20; O2SAT 95
[2025-05-16 13:29] LABS: Resp Syncy Virus RNA Qual PCR NEGATIVE (Negative); SARS COV2 PCR INHOUSE NEGATIVE (Negative)
--- NOTE | 2025-05-16 16:23 | PC.NURSE ---
Administered soap suds enema. Patient tolerated well. Placed on bedpan. Call torres within reach.
[2025-05-16 16:49] VITALS: BP 181/72; PULSE 63; RESP 16; TEMP 36.4; O2SAT 97
[2025-05-16 18:39] VITALS: BP 155/68; PULSE 63; RESP 18; TEMP 36.4; O2SAT 98
== END 2025-05-16 18:40 | disposition skilled nursing facility (03) ==
PROVIDERS: Registered Nurse Emergency; Emergency Provider Emergency Medicine Emergency Medical Services; PCP Nurse Practitioner Acute Care
DX: K59.00 Constipation, unspecified (principal); Z03.818 Encounter for observation for suspected exposure to other biological agents ruled out; I10 Essential (primary) hypertension; Z95.0 Presence of cardiac pacemaker; Z86.73 Personal history of transient ischemic attack (TIA), and cerebral infarction without residual deficits; Z79.899 Other long term (current) drug therapy
CPT/HCPCS: 74176; 80053; 83735; 85025; 87637; 99284

== ENCOUNTER → 2025-05-16 13:25 | Outpatient (BNV) | payer MEDICARE, SELFPAY | PROVIDERS: Emergency Provider Emergency Medicine Emergency Medical Services; PCP Nurse Practitioner Acute Care; Visit Provider Radiology Diagnostic Radiology | DX: K57.30 Diverticulosis of large intestine without perforation or abscess without bleeding (principal); K31.89 Other diseases of stomach and duodenum; R91.8 Other nonspecific abnormal finding of lung field | CPT/HCPCS: 74176 ==

== ENCOUNTER 2025-05-22 10:53 | Outpatient (REF) | payer MEDICARE, SELFPAY ==
[2025-05-22 12:55] LABS: E. coli EAEC Not Detected (Not Detect.); E. coli EPEC Not Detected (Not Detect.); E. coli ETEC Not Detected (Not Detect.); E. coli STEC Not Detected (Not Detect.); Shigella sp./EIEC Not Detected (Not Detect.)
== END 2025-05-22 10:54 | disposition home or self-care (01) ==
LOC: HO.HSH 10:53
PROVIDERS: Visit Provider Nurse Practitioner Acute Care
DX: R19.5 Other fecal abnormalities (principal); I12.9 Hypertensive chronic kidney disease with stage 1 through stage 4 chronic kidney disease, or unspecified chronic kidney disease; N18.9 Chronic kidney disease, unspecified
CPT/HCPCS: 87507